=== PATIENT | male | born 1945 | race Caucasian/White ===

== ENCOUNTER → 2017-11-29 13:16 | Outpatient (CLI) | payer MEDICARE, OTHER, SELFPAY | PROVIDERS: Family Provider Internal Medicine; PCP Internal Medicine; Visit Provider Internal Medicine | DX: G47.33 Obstructive sleep apnea (adult) (pediatric) (principal); G47.34 Idiopathic sleep related nonobstructive alveolar hypoventilation; G47.10 Hypersomnia, unspecified | CPT/HCPCS: 95806 ==

== ENCOUNTER 2018-09-21 18:35 | Emergency (ER) | payer MEDICARE, SELFPAY ==
[2018-09-21 18:37] VITALS: BP 153/91; PULSE 66; RESP 15; TEMP 36.4; O2SAT 99; BMI 28.9
--- NOTE | 2018-09-21 19:07 | ED.VISSUMM ---
- ER Visit Summary Date of Service: 09/21/18 Chief Complaint: Diarrhea History of Present Illness: The patient is a 73 M your prior GI bleed from peptic ulcer disease and hypertension. Prior appendectomy and cholecystectomy. 2 prior Niesen fundoplication's. Please felt fine. He has been on no recent antibiotics. Both he and his drink well water but there is been no issues with that his has not been ill. Said he has had an area store and had sudden onset of watery diarrhea today around 4 PM. Denies any nausea or vomiting. Some mild lower abdominal cramping. No dysuria. No fever. No melena. Took 2 Imodium. Then the third. And then 1 Lomotil. Physical Examination: Older male no acute distress. Currently his blood pressure is 153/91. He said at home it was 67/41. HEENT exam mildly dry. Otherwise unremarkable. Neck nontender no lymphadenopathy. Lungs clear to auscultation bilaterally. Heart regular rhythm no murmur. Abdomen soft. Nondistended normal bowel sounds no peritoneal signs. No hernias or masses. No pulsatile mass. No signs of obstruction. Positive bowel sounds. Minimal bilateral lower quadrant tenderness. Extremities moves all 4. Calves nontender without edema. Skin without rashes. Neurologically is awake alert with no focal motor deficits. Test Results: CBC shows white count of 10. Hemoglobin 14. Electrolytes show a gap of 13. BUN of 23 and a creatinine of 1.41. Emergency Department Course and Treatment: Patient treated with a liter normal saline. Repeat exam at 2115 patient feels much better. His current pressure is 130/87. He feels comfortable being discharged home. He has nausea medication and diarrhea medication at home. Treatment Plan: Fluids and rest. Increase diet slowly. Imodium and Zofran as needed. Disposition: Discharge Impression: Acute diarrhea secondary to viral syndrome Mild dehydration Dehydration with transient hypotension resolved This note was generated with [employer] dictation software. It may contain incorrect words, spelling, and punctuation that were not noted in review of the chart prior to signing ED Disposition - Plan for ED Patient: Chief Complaint: Nausea/Vomiting/Diarrhea Referrals: Racquel Washington MD [Primary Care Provider] -
--- NOTE | 2018-09-21 19:10 | ED.DCSUM_ITS ---
- ER Visit Summary Date of Service: 09/21/18 Chief Complaint: Diarrhea History of Present Illness: The patient is a 73 M your prior GI bleed from peptic ulcer disease and hypertension. Prior appendectomy and cholecystectomy. 2 prior Niesen fundoplication's. Please felt fine. He has been on no recent an tibiotics. Both he and his drink well water but there is been no issues with that his has not been ill. Said he has had an area store and had sudden onset of watery diarrhea today around 4 PM. Denies any nausea or vomiting. Some mild lower abdominal cramping. No dysuria. No fever. No melena. Took 2 Imodium. Then the third. And then 1 Lomotil. Physical Examination: Older male no acute distress. Currently his blood pressure is 153/91. He said at home it was 67/41. HEENT exam mildly dry. Otherwise unremarkable. Neck nontender no lymphadenopathy. Lungs clear to auscultation bilaterally. Heart regular rhythm no murmur. Abdomen soft. Nondistended normal bowel sounds no peritoneal signs. No hernias or masses. No pulsatile mass. No signs of obstruction. Positive bowel sounds. Minimal bilateral lower quadrant tenderness. Extremities moves all 4. Calves nontender without edema. Skin without rashes. Neurologically is awake alert with no focal motor deficits. Test Results: CBC shows white count of 10. Hemoglobin 14. Electrolytes show a gap of 13. BUN of 23 and a creatinine of 1.41. Emergency Department Course and Treatment: Patient treated with a liter normal saline. Repeat exam at 2115 patient feels much better. His current pressure is 130/87. He feels comfortable being discharged home. He has nausea medication and diarrhea medication at home. Treatment Plan: Fluids and rest. Increase diet slowly. Imodium and Zofran as needed. Disposition: Discharge Impression: Acute diarrhea secondary to viral syndrome Mild dehydration Dehydration with transient hypotension resolved This note was generated with [employer] dictation software. It may contain incorrect words, spelling, and punctuation that were not noted in review of the chart prior to signing ED Disposition - Plan for ED Patient: Chief Complaint: Nausea/Vomiting/Diarrhea Referrals: Racquel Washington MD [Primary Care Provider] -
[2018-09-21 19:12] VITALS: BP 137/79; PULSE 66; RESP 15; TEMP 36.4; O2SAT 99
[2018-09-21] MEDS: 0.9% Normal Saline 1,000 ML 1000 ML IV (19:12)
[2018-09-21 19:28] LABS: Absolute Lymphocyte Count 0.88 X10^3/ul (0.83-4.51); Absolute Neutrophil Count 8.8 X10^3/uL (2.0-7.7); Basophil# 0.03 X10^3/uL; Basophil% 0.3 % (0-1); Hematocrit 41.6 % (40-54); Hemoglobin 14.1 g/dl (13.0-16.5); Lymphocyte # 0.88 X10^3/ul (4.0); Lymphocyte % 8.4 % (19-41); Mean Corp Hgb Conc 33.9 g/gl (32-36); Mean Corpuscular Hgb 31.1 pg (27.0-32.0); Mean Corpuscular Volume 91.8 fL (80-94); Mean Platelet Vol. 8.8 fl (6.2-12.0); Monocyte# 0.66 X10^3/uL; Monocyte% 6.3 % (0-10); Neutrophil # 8.75 X10^3/uL (2.7-7.7); Neutrophil % 83.8 % (47-70); Platelet Count 248 K/mm3 (150-450); RBC Distribution Width CV 12.9 % (11.6-14.6); RBC Distribution Width SD 43.2 fl (35.1-43.9); Red Blood Count 4.53 M/mm3 (4.6-6.2); White Blood Count 10.4 K/mm3 (4.4-11.0)
[2018-09-21 19:33] LABS: POSITIVE COUNT NO; POSITIVE DIFFERENTIAL NO; POSITIVE MORPHOLOGY NO
[2018-09-21 19:53] LABS: Anion Gap 13 (5-15); BUN 23 mg/dL (7-18); BUN/Creat Ratio 16.3 RATIO (10-20); Calcium,Total 9.5 mg/dL (8.5-10.1); Chloride 99 mmol/L (98-107); Creatinine, Serum 1.41 mg/dL (0.70-1.30); EST Glomerular Filtration Rate 53 mL/min (>60); Est Glom Filt Rate - Afr Amer 64 mL/min (>60); Estimated Creatinine Clearance 49.62 ml/min; Glucose 116 mg/dL (74-106); Potassium 4.4 mmol/L (3.5-5.1); Sodium Level 136 mmol/L (136-145)
[2018-09-21 20:02] VITALS: BP 140/95; PULSE 66; RESP 18; TEMP 36.4; O2SAT 95
[2018-09-21 20:47] VITALS: BP 140/85; PULSE 72; RESP 14; O2SAT 94
--- NOTE | 2018-09-21 21:16 | ED.DEP ---
ED Disposition - Plan for ED Patient: Disposition: Home or Assisted Living Chief Complaint: Nausea/Vomiting/Diarrhea Instructions: ED Gastroenteritis Viral Referrals: Racquel Washington MD [Primary Care Provider] - 3-5 Days if not improving Additional Instructions: Plenty of fluids and rest. Increase diet slowly. Return to the ER feeling worse. Follow-up with your doctor if not improving. Zofran and/or Phenergan as needed for nausea. Imodium as needed for diarrhea.
[2018-09-21 21:25] VITALS: BP 130/88; PULSE 64; RESP 16; O2SAT 98
== END 2018-09-21 21:26 | disposition home or self-care (01) ==
PROVIDERS: Emergency Provider Emergency Medicine; Family Provider Internal Medicine; PCP Internal Medicine
DX: A08.4 Viral intestinal infection, unspecified (principal); E86.0 Dehydration; I95.9 Hypotension, unspecified; I10 Essential (primary) hypertension; Z87.891 Personal history of nicotine dependence; Z79.899 Other long term (current) drug therapy
CPT/HCPCS: 80048; 85025; 96360; 96361; 99285; A4216

== ENCOUNTER → 2021-09-21 09:10 | Outpatient (CLI) | payer MEDICARE, OTHER, SELFPAY ==
--- NOTE | 2021-09-21 09:42 | RAD_ITS ---
STUDY: X-RAY - ESOPHAGUS (BARIUM SWALLOW) WITH FLUOROSCOPY REASON FOR EXAM: Male, 76 years old. GASTROESOPHAGEAL REFLUX DISEASE W/O ESOPHAGITIS K21.9 TECHNIQUE: 19 view(s) of the esophagus were obtained following swallowing of barium. FLUOROSCOPY TIME (if supplied): (29 seconds) minutes/seconds COMPARISON: None. FINDINGS: The patient is status post Charly fundoplication. There is no demonstrated esophageal foreign body. There is no demonstrated stricture or mucosal abnormality. Normal gastroesophageal junction, without a demonstrated hiatal hernia. The patient ingested a 12 mm tablet of barium without any difficulty. There is atherosclerotic calcification of the aortic arch with tortuosity of the descending aorta. Normal visualized pulmonary parenchyma. There are diffuse degenerative changes of the visualized thoracic spine. RAD/Esophagus Dual Contrast IMPRESSION: Status post IRMA fundoplication. Electronically Signed: Pasquale De Souza MD at 14:10 EST , Service support ,
== END ==
PROVIDERS: PCP Internal Medicine
DX: K21.9 Gastro-esophageal reflux disease without esophagitis (principal)
CPT/HCPCS: 74220; 74221

== ENCOUNTER 2021-09-22 10:46 | Day surgery (SDC) | payer MEDICARE, OTHER, SELFPAY ==
--- NOTE | 2021-09-22 | EGD_PTH ---
PATIENT: TOSHA FORTUNE LOC: EN U#:[id number] AGE/SX: 76/M ROOM: RE09/22/[address]: Dr. Louis Mak DO : 1945 BED: DIS: 09/22/2021 SPEC #: [id number] RECD: 09/22/21 14:37 STATUS: JESUS DEE #: [id number] TROY: 09/22/21 00:[address]: Louis Mak DEPT: SURGICAL PATHOLOGY RECD BY: Antonio Bowers ENTERED: 09/23/21 10:42 SP TYPE: EGD BIOPSY KEENA DR: Dr. 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 Moderate chronic inflammation. Negative for dysplasia. See comment. CHRISTIANO:gabriel 09/24/2021 COMMENT Alcian blue/PAS stain with matched control is used in the evaluation of the specimen. Immunohistochemistry ([id number]) for P53 and Ki-67 will be performed and results will be reported separately. MICROSCOPIC DESCRIPTION Slides are reviewed. GROSS DESCRIPTION Received in fixative is one container labeled with the patient's name and designated distal esophagus biopsy. The specimen consists of multiple irregular fragments of light clifford soft tissue that in aggregate measure 0.6 x 0.2 x 0.1 cm. The specimen is totally submitted in one cassette. / AM:gabriel 09/23/21 TC:5 CPT: 01059, 23118
--- NOTE | 2021-09-22 | IMM_PTH ---
PATIENT: TOSHA FORTUNE LOC: EN U#:[id number] AGE/SX: 76/M ROOM: RE09/22/[address]: Dr. Louis Mak DO : 1945 BED: DIS: 09/22/2021 SPEC #: [id number] RECD: 09/24/21 13:44 STATUS: JESUS REQ #: [id number] TROY: 09/22/21 00:[address]: Louis Mak DEPT: IMMUNOHISTOCHEMISTRY RECD BY: Larissa Nino ENTERED: 09/24/21 13:45 SP TYPE: IMMUNO OT DR: Dr. Racquel Washington MD Tissues: Esophagus, NOS Procedures: P53 (initial) KI-67 (add) PHYSICIAN & INSTITUTION [place] [id number] SPECIMEN INFORMATION: Tissue Source: Distal esophagus biopsy Clinical Info: GERD Specimen Number: [id number] CPT code: 13996, 75555 METHODOLOGY: Deparaffinized sections of prefer/formalin-fixed tissue or PAP/DQ stained slides are incubated with monoclonal/polyclonal antibodies/oligonucleotide probes. Localization is made via biotin free immunoperoxidase method. Appropriate controls are performed and reacted as expected. Results on target cell population are indicated in the following table: RESULTS: ANTIBODY / CLONE RESULT P53 (DO-7) positive, rare cells Ki-67 (30-9) positive, very low These tests were developed and their performance characteristics determined by [facility]. They may not have been cleared or approved by the U.S. Food and Drug Administration. The FDA has determined that such clearance or approval is not necessary. The above immunohistochemical/dualISH markers are ordered and reviewed by the Pathologist. INTERPRETATION: Distal esophagus, biopsy: Negative for dysplasia. CHRISTIANO:gabriel 09/27/2021
--- NOTE | 2021-09-22 11:12 | HP.PCM_ITS ---
History and Physical Date of Admission: 09/22/21 76 M who presents to the office today for further evaluation of a previous Brad fundoplication. Referred to this office to ensure that he could proceed with cardiac surgery. He is having an open-heart bypass that has not been scheduled at this time. It was discussed that surgeon would possibly undo the fundoplication for the surgery, Taco does not want to do this or have it loosened. Also has questions about barium listed as an allergy, needs to have barium swallow performed ordering physician ordered prednisone and Benadryl to alleviate hives and itching. Additional history of abnormal REM sleep, esophageal reflux, hemorrhage of GI tract, intestinal infection due to campylobacter, migraine, nocturnal hypoxemia, PUD, hypercholesterolemia, HTN. Colonoscopy performed 2000, 2007, 2018. EGD performed 2005 (dilation), 2017. Brad fundoplication 1990 with revision 2012 and esophagus was lengthened at that time. CT abd/pel 02/03/16 with mild hepatic enlargement with steatosis. Prior cholecystectomy with clips placed. Atherosclerotic disease aorta. 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 Esophogram 09/06/17 with dysmotility in esophagus with barium persisting in midportion esophagus for a small amount of time. Small nonobstructive distal esophageal ring. Fundoplication appears above level of diaphragm with small amount of stomach above level of diaphragm. Small amount of gastroesophageal reflux. ROS Const Constitutional: Positive for fatigue ENT ENT: Positive for hearing loss, tinnitus and difficulty swallowing Cardio Cardiology: Positive for chest pain at rest Gastro GI: Positive for bloating, constipation, diarrhea and difficulty swallowing Musc Musculoskeletal: Positive for joint pain, back pain, muscle cramps, numbness, stiffness, tingling, Arthritis and sciatica Neuro Neurology: Positive for numbness and tingling Psych Psychiatric: Positive for anxiety and Positive for depression Endo Endocrine: Positive for fatigue Tho/Lymp Hematologic/Lymphatic: Positive for easy bruising Exam Const General: cooperative and comfortable Nutritional Appearance: average body habitus and well nourished HENGA Head: normal to inspection Ears: hearing grossly normal bilaterally Nose: external nose normal Face and sinus: normal facial exam Mouth: oral mucosae normal Throat: posterior oropharynx normal Eyes General: appearance normal, both eyes and all related structures Neck Neck: normal visual inspection Chest Chest palpation & inspection: normal inspection of the chest and normal palpation of entire chest wall Resp Effort & Inspection: normal respiratory effort Auscultation: Bilateral: Clear to Auscultation Cardio Palpation: normal PMI Rate: regular rate Rhythm: regular rhythm GI Inspection: normal to inspection Auscultation: normal bowel sounds Percussion: normal to percussion Palpation: no hepatosplenomegaly Skin General: no rashes or lesions noted Neuro General: patient alert Extrem General: normal to inspection Psych Affect: normal affect Quality Reporting Tobacco Screening ([facility] 138) Smoking Status: Former smoker Assessment and Plan Assessment and Plan (1) GERD (gastroesophageal reflux disease): Status: Acute Plan - Dr. Myers Friend, DO: He will undergo an upper endoscopy to evaluate his upper GI tract. At this time he is not having any problems with esophageal dysphagia. We will be able to assess his upper GI tract and dilated esophagus at the level of the GE junction due to his history of 2 Brad fundoplication's. A fill is if we are able to dilate it successfully and he is not having any problems with his barium esophagram then he should be fine for his elective CABG procedure. I have re-examined the patient. There are no clinical changes since date of exam.
[2021-09-22 11:13] VITALS: BP 147/86; PULSE 60; RESP 16; TEMP 36.6; O2SAT 98; BMI 27.1
[2021-09-22] MEDS: Lactated Ringers 1,000 ML 30 ML IV (11:31)
[2021-09-22 12:16] VITALS: BP 130/64; BP 147/86; PULSE 73; RESP 16; TEMP 36.5; O2SAT 92
--- NOTE | 2021-09-22 12:18 | OP.EGD_ITS ---
Patient Name: Taco Spann Procedure Date: 09/22/2021 11:45 AM Date of : 1945 Age: 76 Procedure: Upper GI endoscopy Indications: Dysphagia Providers: Louis Mak DO Medicines: See the Anesthesia note for documentation of the administered medications Patient Profile: This is a 76 year old male. Refer to note in patient chart for documentation of history and physical. Patient has symptoms of chronic dysphagia. Complications: No immediate complications. Procedure: Pre-Anesthesia Assessment: - Prior to the procedure, a History and Physical was performed, and patient medications and allergies were reviewed. The patient is competent. The risks and benefits of the procedure and the sedation options and risks were discussed with the patient. All questions were answered and informed consent was obtained. Patient identification and proposed procedure were verified by the physician in the pre-procedure area. Mental Status Examination: alert and oriented. Airway Examination: normal oropharyngeal airway and neck mobility. Respiratory Examination: clear to auscultation. CV Examination: normal. Prophylactic Antibiotics: The patient does not require prophylactic antibiotics. Prior Anticoagulants: The patient has taken no previous anticoagulant or antiplatelet agents. After reviewing the risks and benefits, the patient was deemed in satisfactory condition to undergo the procedure. The anesthesia plan was to use moderate sedation / analgesia (conscious sedation). Immediately prior to administration of medications, the patient was re-assessed for adequacy to receive sedatives. The heart rate, respiratory rate, oxygen saturations, blood pressure, adequacy of pulmonary ventilation, and response to care were monitored throughout the procedure. The physical status of the patient was re-assessed after the procedure. After obtaining informed consent, the endoscope was passed under direct vision. Throughout the procedure, the patient's blood pressure, pulse, and oxygen saturations were monitored continuously. The gastroscope was introduced through the mouth, and advanced to the second part of duodenum. The upper GI endoscopy was accomplished without difficulty. The patient tolerated the procedure well. Moderate Sedation: Moderate (conscious) sedation was administered by the endoscopy nurse and supervised by the endoscopist. The patient's oxygen saturation, heart rate, blood pressure and response to care were monitored. Total physician intraservice time was 15 minutes. Scope In: 11:58:21 AM Scope Out: 12:09:55 PM Total Procedure Duration Time 0 hours 11 minutes 34 seconds Findings: There were esophageal mucosal changes suspicious for short-segment Alvarez's esophagus present in the lower third of the esophagus. The maximum longitudinal extent of these mucosal changes was 3 cm in length. Mucosa was biopsied with a cold forceps for histology in a targeted manner at intervals of 1 cm in the lower third of the esophagus. A total of 3 specimen bottles were sent to pathology. Verification of patient identification for the specimen was done. Estimated blood loss was minimal. One benign-appearing, intrinsic stenosis was found 34 to 35 cm from the incisors. This stenosis was mildly severe and measured 2 mm (inner diameter) x 2 cm (in length). The stenosis was traversed. A guidewire was placed and the scope was withdrawn. Dilation was performed with a Savary dilator with no resistance at 54 Fr. The dilation site was examined following endoscope reinsertion and showed moderate improvement in luminal narrowing. Estimated blood loss: none. A single 5 mm stigmata of recent bleeding angiodysplastic lesion was found in the cardia. Coagulation for hemostasis using argon plasma at 0.3 liters/minute and 20 parrish was successful. Estimated blood loss was minimal. No other significant abnormalities were identified in a careful examination of the stomach. The second portion of the duodenum was normal. Impression: - Esophageal mucosal changes suspicious for short-segment Alvarez's esophagus. Biopsied. - Benign-appearing esophageal stenosis. Dilated. - A single recently bleeding angiodysplastic lesion in the stomach. Treated with argon plasma coagulation (APC). - Normal second portion of the duodenum. Recommendation: - Discharge patient to home. - Resume previous diet. - Continue present medications. - Await pathology results. - Repeat upper endoscopy in 1 year for surveillance. - Return to GI office in 2 weeks. Procedure Code(s): --- Professional --- 70265, 59, Esophagogastroduodenoscopy, flexible, transoral; with control of bleeding, any method 29188, Esophagogastroduodenoscopy, flexible, transoral; with insertion of guide wire followed by passage of dilator(s) through esophagus over guide wire 55874, 59, Esophagogastroduodenoscopy, flexible, transoral; with biopsy, single or multiple 45081, 59, Moderate sedation services provided by the same physician or other qualified health career center advisor performing the diagnostic or therapeutic service that the sedation supports, requiring the presence of an independent trained observer to assist in the monitoring of the patient's level of consciousness and physiological status; initial 15 minutes of intraservice time, patient age 5 years or older CPT copyright 2017 [employer]. All rights reserved. The codes documented in this report are preliminary and upon manager operating review may be revised to meet current compliance requirements. Louis Mak DO 09/22/2021 12:18:11 PM This report has been signed electronically. Number of Addenda: 1 Note Initiated On: 09/22/2021 11:45 AM Addendum Number: 1 Addendum Date: 05/26/2022 6:07:06 AM MAC was used instead of moderate sedation for the patient. Louis Mak DO 05/26/2022 6:07:11 AM This report has been signed electronically.
--- NOTE | 2021-09-22 12:19 | OP.CCLET_ITS ---
05/26/2022 Racquel Washington [address] [place] [address] Re : Upper GI endoscopy procedure for [place] Spann Dear Dr. Washington This procedure was performed on Wednesday, September 22, 2021. My impressions and recommendations are as follows: Impressions : - Esophageal mucosal changes suspicious for short-segment Alvarez's esophagus. Biopsied. - Benign-appearing esophageal stenosis. Dilated. - A single recently bleeding angiodysplastic lesion in the stomach. Treated with argon plasma coagulation (APC). - Normal second portion of the duodenum. Recommendations : - Discharge patient to home. - Resume previous diet. - Continue present medications. - Await pathology results. - Repeat upper endoscopy in 1 year for surveillance. - Return to GI office in 2 weeks. My findings are described in the full procedure note, which is enclosed. If I can be of further assistance, please feel free to contact me at . Sincerely, Louis Mak, 09/22/2021 12:18:11 PM This report has been signed electronically.
[2021-09-22 12:20] VITALS: BP 126/82; BP 147/86; PULSE 59; RESP 16; O2SAT 93
[2021-09-22 12:25] VITALS: BP 130/89; BP 147/86; PULSE 67; RESP 16; O2SAT 96
[2021-09-22 12:26] VITALS: BP 131/87; BP 147/86; PULSE 59; RESP 16; TEMP 36.5; O2SAT 96
[2021-09-22 12:55] VITALS: BP 147/86
== END 2021-09-22 23:59 | disposition home or self-care (01) ==
LOC: EN 10:48 → AC 10:49
PROVIDERS: PCP Internal Medicine; Referring Provider Internal Medicine; Visit Provider Internal Medicine Gastroenterology
PROC: 0DJ08ZZ Inspection of Upper Intestinal Tract, Via Natural or Artificial Opening Endoscopic (ICD-10-PCS; CPT 43235; principal; 2021-09-22 11:55)
DX: K22.70 Barrett's esophagus without dysplasia (principal); K31.811 Angiodysplasia of stomach and duodenum with bleeding; K22.2 Esophageal obstruction; K21.00 Gastro-esophageal reflux disease with esophagitis, without bleeding; Z87.891 Personal history of nicotine dependence; F41.9 Anxiety disorder, unspecified; M19.90 Unspecified osteoarthritis, unspecified site; J45.909 Unspecified asthma, uncomplicated; F32.A Depression, unspecified; N40.0 Benign prostatic hyperplasia without lower urinary tract symptoms; E78.00 Pure hypercholesterolemia, unspecified; Z79.899 Other long term (current) drug therapy; I10 Essential (primary) hypertension; G47.30 Sleep apnea, unspecified; G43.909 Migraine, unspecified, not intractable, without status migrainosus; Z87.19 Personal history of other diseases of the digestive system; Z90.49 Acquired absence of other specified parts of digestive tract
CPT/HCPCS: 43239; 43248; 43255; 88305; 88313; 88341; 88342; J7120; C1769; J2405

== ENCOUNTER → 2021-12-21 10:56 | Outpatient (CLI) | payer MEDICARE, OTHER, SELFPAY ==
--- NOTE | 2021-12-21 13:38 | STRESSREP_ITS ---
Stress Test Report Date: 12-21-2021 Procedure: Exercise tolerance test Indications: CAD; status post CABG Consent: Per the patient Procedure: The patient exercised on a Teto protocol for 8 minutes and 20 seconds completing Stage II and 2 minutes and 20 seconds of Stage III achieving a peak heart rate of 144 bpm (98% predicted maximal heart rate) with a peak blood pressure 200/104 mmHg and a peak MET capacity of approximately 10 MET's. The baseline ECG demonstrated normal sinus rhythm; T wave abnormality: Consider myocardial ischemia. The peak exercise ECG demonstrated somatic/motion artifact with pseudonormalization the baseline T wave abnormality. There were occasional PACs and PVCs during exercise and occasional PACs during recovery and an isolated ventricular couplet during recovery. The functional capacity was considered good. The patient had no complaint of chest discomfort during exercise or recovery. The examination was discontinued secondary to dyspnea and leg discomfort. Impression: 1. Technically adequate (percent predicted maximal heart rate greater than 85%) exercise tolerance test 2. Peak exercise ECG with somatic/motion artifact with pseudonormalization of the baseline T wave abnormality 3. There were occasional PACs and PVCs during exercise and occasional PACs during recovery and an isolated ventricular couplet during recovery This note was generated with [employer] software. It may contain incorrect words, spelling, and punctuation that were not noted in checking the note before signing.
== END ==
PROVIDERS: PCP Internal Medicine
DX: Z95.1 Presence of aortocoronary bypass graft (principal)
CPT/HCPCS: 93017

== ENCOUNTER 2021-12-27 13:35 | Outpatient (CLI) | payer MEDICARE, OTHER, SELFPAY ==
--- NOTE | 2021-12-27 13:47 | CR.ITP_ITS ---
Diagnosis - General Information Admitting Diagnosis: S/P CABG Secondary Diagnosis: ACENDING AORTIC ECTASIAQ, INFRARENAL AAA, hypertension, hyperlipidemia, Coronary Artery Disease Personal Learning Style:: Audio/Visual, Written Barriers to Learning: Vision Impairment Stage of change r/t lifestyle modifications:: Action Gave educational material for:: Treating Heart Disease, Emotions & Heart Dis ease, Stress Management & Relaxation, Sleep Disorders & Heart Disease, How The Heart Works, What it means to have Heart Disease, How Coronary Artery Disease is Diagnosed, Heart Procedures, What Heart Medications Do, Risk Factors & Modifications, Living an Active Life, Nutrition - Education/Goals Individual Counseling: Initial Assessment: Abnormal Cholesterol Levels, High Blood Pressure Cardiac Rehabilitation Goals: 1. Maintain the individual as the primary focus of care. 2. To improve the patient's quality of life. 3. Identification of cardiac risk factors and provide cardiac risk factor management. 4. Enhance the psychosocial status of the patient. 5. Reconditioning enough to allow the patient to resume customary activities. 6. Control symptoms of cardiac disease Personal Goals: Initial Assessment: Improve management of stress and emotions, Improve energy level, Participate in home exercise program, Get back to work, or to resume activities faster, Improve muscle strength and endurance, Improve diet and eating habits (eat healthier), Control risk factors (learn risk factor modification), Other goal: - [facility] Scale for measuring improvement of personal goals: Enter appropriate number in Comments. 2 = Unchanged. 3 = Slightly Better. 4 = Moderate Improvement. 5 = Met my Goal - Diagnosis & Disease Process Outcomes/Goals: Pt IDs own risk factors & lifestyle modifications by Session 10, Verbalizes symptoms of angina & response by session 3., Pt independently manages Plan/Interventions: Assist Pt to ID & engage in lifestyle modification to reduce CVD risk, Instruct on individual risk factors, Review symptoms of angina & emergency actions, Review secondary diagnosis & identify educational needs. - Safety Referral to Physical Therapy: No Referral to [facility] Case Management: No Fall Risk Assessed:: Yes Assistive Devices:: None Exercise - Initial Assessment - Visit Date of Eval: 12/27/21 Session #:: 0 - pre-cardiac rehab evaluation Mets: Pre-: >7 METS for 30 minutes by discharge - Stress Test Date: 12/21/21 Protocol:: Teto Resting HR (bpm):: 64 Maximum HR (bpm):: 144 Blood Pressure: 158/88 Maximum Blood Pressure: 200/104 MET LEVEL:: 10.4 EKG: NSR - Physician Prescribed Exercise Modalities: Treadmill, Airdyne, NuStep Frequency: 3x/week for 12 weeks [36 sessions] Intensity: 60-80% of age predicted maximum heart rate reserve Current METSs:: 4.0 Target Heart Rate:: 95-124 Resting Blood Pressure: 132/92 EKG Type: see Stress Test Results - Outcomes & Goals Goals:: Verbalizes understanding of THR, RPE & goal METS by session 6, Documents in home exercise log/reports 30 min aerobic 5 day/wk by DC, Demonstrates accurate pulse taking by DC - Intervention & Plan Exercise Program Goals: Instruct on personal THR & RPE, Instruct on MET level & personal MET goal, Show patient to take own pulse /validate performance until accurate, Instruct on home exercise - Physical Activity Home Exercise Physical Activity - Home Exercise: Safe Exercise, Warm-up, Self-monitoring, Cool-Down, Home Exercise > 30 min Daily, Sitting Time <3 hours/daily - Outcomes & Goals Outcomes/Goals: Demonstrates correct Warm-up/exercise Cool-Down (S3) if = 2.5 METs, Verbalizes symptoms of exercise intolerance by Session 3 (S3), Demonstrate safe equipment use (S3) & follows exercise prescrition (6) - Intervention & Plan Plan/Intervention: Instruct warm-up & cool-down if exercising at > 2 METs, Instruct on symptoms of exercise intolerance & actions to take, Instruct & monitor on saf, Assess intial functional capacity & safety risk Nutrition - Initial Assessment - Program Goals Nutrition Program Goals: LDL <100 optimal. 100 - 129 Near optimal. 130 - 159 Borderline High. 160 - 189 High. Total Cholesterol <200 desirable. 200 - 239 Borderline High. >/= 240 High. HDL < 40 Low >/=60 High. Triglycerides <150 desirable. <199 optimal. VlDL 5 - 40. HgbA1C <7%. BMI <25 Patient has diagnosis of Hyperlipidemia (ICD E78)?: Yes - Visit Date of Assessment:: 12/27/21 Session #:: 0 - pre-cardiac rehab - Cholesterol/Lipids Determine presence & major risk factors that modify LDL goal: Hypertension or hypertensive medication, Family history of premature CHD in Male < 55 years: female <65 yearsFa, Age men > 45 years; women >/= 55 years Outcomes/Goals: Pt IDs own risk factors & lifestyle modifications by Session 10, Verbalizes symptoms of angina & response by session 3., Pt independently manages Intervention/Plan: Instruct on personal lipid levels & lipid goals/NCEP guidelines, Instruct on cholesterol - Weight Mgt (Other Care) Not Applicable: Yes Height: 5 ft 9 in Weight:: 175 lb BMI: 25.8 Diagnosis Overweight/Obesity BMI> 30% ICD-10 E66: No Diagnosis High BMI/Morbid Obesity BMI> 35% ICD-10 Z68: No Outcomes/Goals: Pt sets, maintains & shows weight loss goal & trend during rehab Intervention/Plan: Instruct on ideal BMI & set weight loss goal w/patient - Healthy Eating Habits Will attend diet classes:: Yes Outcomes/Goals:: Consume diet rich in vegs,fruits,whole grain/high fiber,fish,lean meat, Limit sat/trans fats,cholesterol & added salts & sugars Intervention/Plan:: Assess current eating habits - Education Gave educational materials for:: Healthy eating Nutrition - 30-Day Assessment Nutrition - 60-Day Assessment Nutrition - 90-Day Assessment Nutrition - Final Assessment Medical - Initial Assessment - Visit Date of Eval: 12/27/21 Session #:: 0 - pre-cardiac rehab evaluation - Medication Compliance Preventative Medication(s):: Aspirin, Statin/lipid, Beta yamilet H/O mental health issues: depression, anxiety, or addiction?: No Doesn?t believe in the benefits of treatment?: No Believes medications are unnecessary or harmful?: No Has a concern about medication side effects?: No Expresses concern over the cost of medications?: No Outcomes/Goals: Verbalizes medications,desired effect & common side effects @ DC, Pt self-reports following medication regimen, Keeps card in wallet w/medications listed by DC Interventions/plans: Instruct on medication effects & side effects, Review medication list w/patient every two weeks, Instruct importance of taking meds as ordered & assist problem solving - Tobacco Use Tobacco Use: Non-smoker - Hypertension Hypertension Diagnosis:: Hypertension ICD-10 I10 Resting Blood Pressure:: 158/88 [place] [employer] Hypertension Guidelines: [place] [employer] Hypertension Guidelines. Normal BP Less than 120/80. Elevated BP 120/80. Hypertension Stage 1: BP 130-139/80-89. Hypertesnion Stage 2: BP 140 or higher/90 or higher. Hypertension Crisis: BP higher than 180/120 Outcomes/Goals: Able to verbalize/achieve optimal blood pressure <130/80, Incorporates diet changes & exercise for blood pressure control by DC Interventions/plan: Instruct on optimal blood pressure, hypertension & medicat ions, Instruct on effects of sodium, alcohol, stress, exercise &hypertension - Tobacco Cessation Referral Smoking Cessation Referral:: No Individual Education/Counseling:: No Education Schedule Given:: Yes Medical- 30-Day Assessment Medical- 60-Day Assessment Medical- 90-Day Assessment Medical - Final Assessment Psychosocial - Initial Assess - VIsit Date of Eval: 12/27/21 Session #:: 0 - pre-cardiac rehab evaluation Not Applicable: Yes History of previous Mental disease:: No - Psychosocial Test Tool Used:: [facility] QOL Cardiac, PHQ-9 Questionnaire phq-9 Severity: Severity. 1-4 Minimal Depression. 5-9 Mild Depression. 10-14 Moderate Depression. 15-19 Moderately Sever Depression. 20-27 Severe Depression. Rule: - Referral to Behavioral Health PS - Interventions: Yes Attend Stress Management Classes, No Referral to Behavioral Health if PHQ-9 score >9:, No Referral to [facility], No Referral to Physician if PHQ-9 if score is 5-9: - Outcomes/Goals: See list Psychosocial Outcomes/Goals:: ID's personal stressors & 2 strategies to manage stress by discharge - Intervention/Plan: See List Interventions/Plan:: Assess stressors,coping strategies & signs of derpression on admission, Instruct/assist pt to develop coping & personal stress Mgt strateg ies, Instruct patient to recognize signs & symptoms of depression, Instruct patient to recog Psychosocial - 30-Day Assess Psychosocial - 60-Day Assess Psychosocial - 90-Day Assess Psychosocial - Final Assessmen Patient Health Questionnaire Initial Assessment 1. Little interest or pleasure in doing things: Several days 2. Feeling down, depressed, or hopeless: Several days 3. Trouble falling or staying asleep, or sleeping too much: Not at all 4. Feeling tired or having little energy: More than half the days 5. Poor appetite or overeating: Not at all 6. Feeling bad about yourself -- or that you are a failure or have let yourself or your family down: Not at all 7. Trouble concentrating on things, such as reading the newspaper or watching television: More than half the days 8. Moving or speaking so slowly that other people could have noticed. Or the opposite - being so fidgety or restless that you have been moving around a lot more than usual: Not at all 9. Thoughts that you would be better off , or of hurting yourself in some way: Not at all How difficult have these problems made it for you to do your work, take care of things at home, or get along with other people?: Somewhat difficult Total Score: 6 FIDEL-Q SV Test - Statements CAD is a disease of the arteries in the heart: False Examples of risk factors for heart disease: True Angina is chest pain or discomfort: True The benefits of resistance training include: True Eating more meat and dairy products: False Anti-platelet medications such as aspirin are important: True The only effective way to manage stress: False An exercise warm-up slowly increases heart rate: True Prepared, processed foods usually have high sodium: True Depression is common after a heart attack: True The statin medications lower cholesterol: True To control blood pressure, lower the amount of sodium: True If someone gets chest discomfort during walking: False Transfats are partially hydrogenated vegetable oils: True Sleep apnea that is not treated increases the risk: False To control cholesterol, one should become a vegetarian: False Someone knows if he/she is exercising at the right level: True Diabetes cannot be prevented with exercise & health eating: False Stress is a large risk for heart attack: True A diet that can help lower blood pressure is rich in: True - Total Score Total Correct Responses: 20 Self-Efficacy Initial Assessment We would like to know how confident you are in doing certain activities. Please select your confidence level for:: Select your confidence level for the following using the scale 1-10 where 1 is not at all confident and 10 is totally confident. Your score is the average of all 6 responses. Fatigue: How confident are you that you can keep the fatigue caused by your disease from interfering with the things you want to do? Select Number: 10 Physical Discomfort or Pain: How confident are you that you can keep the physical discomfort or pain of your disease from interfering with the things you want to do? Select Number: 10 Emotional Distress: How confident are you that you can keep the emotional distress caused by your disease from interfering with the things you want to do? Select Number: 10 Other Symptoms or Health Problems: How confident are you that you can keep other symptoms or health problems from interfering with the things you want to do? Select Number: 2 Different Tasks and Activities: How confident are you that you can do the different tasks and activities needed to manage your health condition so as to reduce your need to see a doctor? Select Number: 3 Medication: How confident are you that you can do things other than just taking medication to reduce how much your illness affects your everyday life? Select Number: 5 Total Score:: 6 Nutrition Survey - Nutrition Survey Initial Have you lost >10 lbs over the past 2 months without trying?: No Are you following a special diet at home for diabetes, low fat, or low salt?: Yes Are you interested in meeting with a dietitian for help understanding your diet?: Yes Do you eat less than 3 meals a day?: No Do you eat fatty meats (parrish, sausage, ribs, etc), fried foods, desserts, large amounts of salad dressings, margarine, butter, or cheese most days?: No Do you have food allergies? [Enter types in comment field]: No Do you eat in restaurants more than 3 times a week?: No Do you season food with salt, seasoning salt, or garlic salt?: Yes Do you used canned, boxed, frozen meals, or soups, seasoning packets?: No Total Score:: 3
--- NOTE | 2021-12-27 13:47 | PCM.CR.HP2 ---
CR - History & Physical - General Arrival date:: 12/27/21 Arrival time:: 13:50 Date of Referral:: 11/17/21 Date of CR Evaluation:: 12/27/21 Referring Physician: DR. LAURA CORADO - DR. BANKS @ [facility] Primary Diagnosis: S/P CABG - History of Present Cardiac Event Onset Date: Enter Onset Date of cardiac illnesses in Comment field below Coronary Artery Bypass Graft:: Yes - 10/25/2021 Type of Symptoms:: oversized aortic arch, being monitored, when Dr. Corado did surgery he said it was fine. never had any symptoms. Dr. Banks sent me to [facility] for a heart cath adn found a 80% and 90% blockage in coronary arteries. - Sleep Disorder Evaluation Hx of Sleep Apnea: No Do you snore loudly (louder than talking or can be heard through closed doors)?: No - Have history of shallow breathing and desaturation during the sleep so wear a CPAP at night for the oxygen saturation only. Do you often feel tired/ fatigued/ sleepy during daytime?: Yes - wake u in morning felt like never slept night before. Has anyone observed you stop breathing during sleep?: No History of Hypertension (for STOP score): Yes STOP Results: Positive - Medications Home Medications: Ambulatory Orders Medication Instructions Recorded promethazine 25 mg PO Q8H PRN PRN #10 tab 02/03/16 Omeprazole [Prilosec] 40 mg PO BID 06/22/16 celecoxib 200 mg PO BID 06/22/16 dicyclomine 20 mg PO QHS 06/22/16 finasteride 5 mg PO DAILY 06/22/16 losartan 25 mg PO BID 06/22/16 propranolol 120 mg PO DAILY 06/22/16 rosuvastatin 20 mg PO QHS 06/22/16 calcium-vitamin D3-vitamin K 1 ea PO DAILY 03/07/17 [Citracal Soft Chew] ascorbic acid (vitamin C) [Vitamin 1,000 mg PO DAILY 09/21/18 C] cholecalciferol (vitamin D3) 1,000 unit PO BID 09/21/18 [Vitamin D3] omega 0-eeg-oal-fish oil [Fish Oil 1 ea PO DAILY 09/21/18 1,000 mg Softgel] flaxseed oil 1,000 mg PO DAILY 09/21/21 fluticasone propionate [Flonase] 2 spray INTRANASAL DAILY 09/21/21 fluticasone propionate [Flovent 1 - 2 puff INHALATION PRN PRN 09/21/21 HFA] ipratropium-albuterol [Combivent 1 - 2 puff INHALATION PRN PRN 09/21/21 Respimat] trazodone 50 mg PO QHS 09/21/21 docusate sodium 100 mg capsule 100 mg PO BID 10/18/21 lamotrigine 25 mg tablet 50 mg PO ONCE 10/18/21 methylcellulose (laxative) 500 mg 500 mg PO DAILY 10/18/21 tablet polyethylene glycol 3350 17 17 g PO DAILY 10/18/21 gram/dose oral powder sucralfate 1 gram tablet 1 g PO BID #60 tab 10/21/21 aspirin 81 mg PO DAILY 12/27/21 furosemide [Lasix] 40 mg PO DAILY 12/27/21 magnesium oxide 400 mg PO DAILY 12/27/21 melatonin [Melatin] 3 mg PO DAILY 12/27/21 metformin 500 mg PO DAILY 12/27/21 potassium chloride 20 meq PO DAILY 12/27/21 tramadol 50 - 100 mg PO TID PRN 12/27/21 - Allergies Allergies/Adverse Reactions: Allergies barium iodide Allergy (Verified 09/22/21 11:04) Hives Penicillins [PCN] Allergy (Verified 09/22/21 11:04) Unknown tamsulosin [From Flomax] Allergy (Verified 09/22/21 11:04) Hives Advanced Directives - Advanced Directives Power of Speech And Language Assistant: Yes Living Will: Yes Advance Directives Information Provided: No Advance Directives on File: Yes DNR Order?:: No - MOLST See MOLST form: No Past Medical History - Covid-19 Screening Fever: No Unexplained muscle aches: No Current respiratory symptoms: No Upper respiratory infections symptoms: No Gastro-intestinal symptoms: No Hxi-Fcyp-Wniswq symptoms: No Has tested positive for COVID-19 in last 30 days: No Date of testin05/21/21 - Had Covid but also have had vaccines x 2 and booster vaccine Had contact w/person w/symptoms or Covid-19 (+) last 14 days: No Has High Risk Exposures ID'd by Health dept/Inf Control team: No 65 years or older:: Yes Lives in Assisted Living facility:: No Has a chronic lung disease or moderate to severe asthma:: No Has a serious heart condition:: No Immunocompromised:: No Severely obese (Body Mass Index of 40 or higher):: No Diabetic:: Yes Has chronic kidney disease undergoing dialysis:: No Has liver disease:: No - Past Medical Illness Medical History: Past Medical History (Last Updated 10/18/21 @ 18:[address] Myres Friend, DO) Anxiety F41.9 Arthritis M19.90 BACK, HANDS Asthma J45.909 INHALERS PRN Back pain M54.9 NEED BACK SURGERY ALSO, FOUND HEART PROBLEMS Cardiology follow-up encounter Z[address] [facility], [facility]. SCHEDULED FOR OPEN HEART SURGERY BUT NEEDS AN EGD TO SEE IF EQUIPMENT WILL FIT. Chest pain R07.9 SCHEDULED FOR OPEN HEART SURGERY ELECTIVE/URGENT. CPAP (continuous positive airway pressure) dependence Z99.89 FOR SHALLOW BREATHING Depression F32.A Enlarged prostate N40.0 Former smoker Z87.891 QUIT AGE 24 GERD (gastroesophageal reflux disease) K21.9 High cholesterol E78.00 History of echocardiogram Z92.89 07/2021 [facility] History of hiatal hernia Z87.19 History of steroid therapy Z92.241 PREDNISONE PRN, BACK INJ History of stress test Z92.89 07/2021 [facility] History of ulceration Z87.898 Hypertension I10 NORMALLY, STARTING TO RISE IBS (irritable bowel syndrome) K58.9 Injury of back S39.92XA Injury of head and neck S09.90XA, S19.9XXA WORK RELATED, ALSO AGE 16 BICYCLE Migraine headache G43.909 Plantar fasciitis M72.2 R FOOT Sleep apnea G47.30 Wears glasses Z97.3 READING ONLY Wears hearing aid Z97.4 SYED - Past Surgical History Surgical History: Past Surgical History (Last Updated 12/27/21 @ 13:59 by Nando Ely, EXECUTIVE OFFICE MANAGER, SEO ASSOCIATE, BS) History of cardiac catheterization Z98.890 1 MONTH AGO 08/22/21 [facility] History of endoscopy Z98.890 History of esophagogastroduodenoscopy (EGD) Z98.890 X15 History of Brad fundoplication Z98.890 History of surgery Z98.890 ULNAR NERVE TRANSPOSITION Hx laparoscopic cholecystectomy Z90.49 Hx of appendectomy Z90.49 Hx of bilateral cataract extraction Z98.41, Z98.42 Hx of colonoscopy Z98.890 X6 Hx of foot surgery Z98.890 X3 Hx of hemorrhoidectomy Z98.890 Hx of inguinal hernia surgery Z98.890, Z87.19 Hx of parotidectomy Z90.49 RIGHT 06/28/2016 Hx of rotator cuff surgery Z98.890 RIGHT Hx of shoulder surgery Z98.890 R ARTHROSCOPY S/P CABG x 3 Z95.1 Social History - Smoking History Smoking Status: Former smoker Hx Tobacco Use: No Hx Smoking Exposure: No - Alcohol Use Alcohol Usage: No - Substance Abuse Hx Substance Use: No - Occupation Occupation (List type of work in comments):: Retired - Hobbies, Recreation, Social Activities Hobbies: Sports - golf had to quit due to arthritis, Woodworking - built furniture, Other - home, yard, and gardening Recreational Activities: I am able to engage in most, but not all activities Social Environment - Status Marital Status: - Current Living Arrangements Living Environment:: Alone - Children How many children do you have?: 2 Do any of your children live nearby?: Yes - Safety Do you feel safe in your surroundings?: Yes - Assistance Do you need any assistance at home?: none Review of Systems - Review of Systems Hints: Right click = Denies ([place]). Left click = Reports ([place]) Review of Present Symptoms: Reports: Wound Healing, Appetite - Normal, Appetite - Special Diet - low fat, low sodium, low sugar, limited red meat. More fruits and vegetables., Sleep - Normal. Denies: Shortness of Breath at Rest, Shortness of Breath with Exertion, Operative Discomfort - left side from the vein harvest, Dizziness/Lightheadedness, Fatigue, Heart Arrhythmia/Irregularities, Sexual Changes - Pain Is Patient Pain Free?: No Pain Location: back, lower extremity - left leg from vein harvest Pain Level: 910 Risk Factor Assessment - Chief Complaint Chief Complaint: s/p cabg x 3 - Vital Signs Temperature: 97.8 F Respiratory Rate: 16 Pulse Ox: 93 Blood Pressure: 158/88 - Pulse Pulse Rate: 102 Pulse Rhythm: Regular - Diabetes Diabetic History: Type II Nutrition Referral for Diabetes: Yes - Obesity Height: 5 ft 9 in Weight:: 188 lb Weight in Pounds: 188.0 lbs Weight Source: Stated by Patient Body Mass Index (BMI): 27.7 Nutritional Referral for Obesity: No - Physical Inactivity Physical Inactivity: Reg Exercise 30 min/day - Risk Stratification Risk Guidelines: Lowest Risk: Risk Factor for Smoking, Risk Factor for Dyslipidemia, Risk Factor for Diabetes, Risk Factor for Sedentary Lifestyle, Risk Factor for Depression, Moderate Risk: Risk Factor for Obesity, Risk Factor for Hypertension - 158/88 Motivation - Motivation to Participate On a scale of 1 to 10, how prepared are you to commit to attending program?: 10 - walking 3 miles day What do you see as barriers to successfully being able to complete the program?: sever chronic back pain, arthritis, in care facility with dementia, What do you see as the benefits of succesfully completing the program? In other words, what do you hope to get out of participating in the program?: healthier Are there issues you are dealing with that will interfere with completing the program?: alot going on personally, tryingot get Pain STmulaor in back for pain. Do you have a spouse or signficant other, family or friends who will help support you to complete the program?: yes.
[2021-12-27 14:42] VITALS: BP 158/88; PULSE 102; RESP 16; TEMP 36.6; O2SAT 93; BMI 27.7
[2021-12-27 14:47] VITALS: BP 132/92; BP 158/88; BMI 25.8
== END 2021-12-27 23:59 | disposition home or self-care (01) ==
PROVIDERS: PCP Internal Medicine; Referring Provider Thoracic Surgery (Cardiothoracic Vascular Surgery); Visit Provider Thoracic Surgery (Cardiothoracic Vascular Surgery)
DX: K21.9 Gastro-esophageal reflux disease without esophagitis (principal); E11.9 Type 2 diabetes mellitus without complications; I10 Essential (primary) hypertension; Z95.1 Presence of aortocoronary bypass graft

== ENCOUNTER 2022-01-24 10:00 | Outpatient (RCR) | payer MEDICARE, OTHER, SELFPAY | END 2022-02-15 23:59 | LOC: DC 10:00 | PROVIDERS: PCP Internal Medicine | DX: E11.9 Type 2 diabetes mellitus without complications (principal); I10 Essential (primary) hypertension; K21.9 Gastro-esophageal reflux disease without esophagitis | CPT/HCPCS: 97802 ==

== ENCOUNTER 2022-02-24 08:40 | Outpatient (RCR) | payer MEDICARE, OTHER, SELFPAY | END 2022-03-17 23:59 | LOC: DC 08:40 | PROVIDERS: PCP Internal Medicine | DX: E11.9 Type 2 diabetes mellitus without complications (principal); I10 Essential (primary) hypertension; K21.9 Gastro-esophageal reflux disease without esophagitis | CPT/HCPCS: 97803 ==

== ENCOUNTER 2022-03-07 13:08 | Day surgery (SDC) | payer MEDICARE, OTHER, SELFPAY ==
[2022-03-07 13:26] VITALS: BP 152/88; PULSE 71; RESP 16; TEMP 36.6; O2SAT 99; BMI 25.7
[2022-03-07] MEDS: Lactated Ringers 1,000 ML 15 ML IV (13:37)
[2022-03-07 13:41] LABS: Bedside Glucose 122 mg/dL (74-106)
--- NOTE | 2022-03-07 14:25 | RAD_ITS ---
PROCEDURE: Spinal cord stimulator placement DATE OF EXAMINATION: 03/08/2022 INDICATION: Male, 76 years old. Spinal cord similar placement for lumbar radiculopathy. FLUOROSCOPY TIME (if supplied): 4 minutes 50 seconds. A fluoroscopic images submitted for assessment. Findings/ RAD/Lumbar Spine 2 or 3 Views IMPRESSION: Limited assessment due to limited fluoroscopic images and views submitted for evaluation. A spinal cord signal device is seen placed and terminating within the thoracic spine. Please see intraoperative report for additional findings. Electronically Signed: Shankar Garcia, at 8:05 EDT ,
[2022-03-07] MEDS: Cefazolin 2 GM in 0.9% Normal Saline 100 ML IV (14:29)
[2022-03-07] MEDS: Lidocaine 2% (20 ml mdv) 20 ML Vial (14:43)
[2022-03-07] MEDS: 0.9% Normal Saline (Pres. free 10 ML Vial ×2 (14:43)
[2022-03-07] MEDS: Bacitracin 500 UNITS/GM PACKET (15:46)
--- NOTE | 2022-03-07 15:59 | OP.PCM_ITS ---
Report of Operation Date of Procedure: 03/07/22 Description of Surgical Findings:: Description of Surgical Findings:: Pre-Operative Diagnosis: Lumbosacral radiculopathy, lumbosacral degenerative disc disease, lumbosacral spinal stenosis, lumbar postlaminectomy syndrome Post-Operative Diagnosis: Lumbosacral radiculopathy, lumbosacral degenerative disc disease, lumbosacral spinal stenosis, postlaminectomy syndrome of the lumbar spine Surgery/Procedure Performed:: 1.? Spinal cord stimulator thoracolumbar leads placement x2 #2 spinal cord stimulator Medtronic intellus generator placement #3 spinal cord stimulator generator pocket creation at the right gluteal region #4 spinal cord stimulator programming, 5-intraoperative fluoroscopic interpretation ANESTHESIA: MAC COMPLICATIONS: None BLOOD LOSS: Minimal Implanted device: Spinal cord stimulator lead [id number] lot number [id number], lead #2? [id number] lot number [id number] Medtronic spinal cord stimulator generator intellus serial number [id number] PROCEDURE IN DETAIL: History and physical today was reviewed. Risks and benefits of procedure expla ined. The patient understood, agreed to procedure, informed consent was obtained. IV inserted per routine protocol. The patient was taken to the operating room, placed in the prone position with a pillow positioned underneath the abdomen. A 2 g of Ancef IV piggyback was infused per anesthesia. The lower back and right gluteal area was prepped and draped in a sterile fashion using iodine x3 Ioban was placed.? The C-arm was brought in position for AP view at the T12-L1 vertebral bodies under direct visualization fluoroscopy on a true AP view the T12-L1 interlaminar space was identified skin and subcutaneous tissue and size approximately 10 cc of a mix of 2% lidocaine and 0.25% Marcaine using a 25-gauge regular needle followed by a 25-gauge 3-1/2 inch spinal needle towards the interlaminar space at T12-L1, the skin and subcutaneous tissue were then anesthetized and using an 11-gauge blade was then taken down to the skin and subcutaneous tissue using a 14-gauge 3-1/2 inch Touhy needle provided by the [employer] kit the needle was passed through the skin towards the interlaminar space at T12-L1 and a left paramedian approach the needle was then advanced under direct visualization fluoroscopy towards the interlaminar space at L2-3 [id number] technique was then carried to air towards the interlaminar space at L1-2 once the tip of the needle was in the epidural space and loss of resistance was encountered to air and after confirmation of AP-- as well as oblique view of the spinal cord stimulator lead was then advanced under direct visualization fluoroscopy to be at the tip of the lead at T8 and the bottom of the lead around mid T10 after confirmation of AP as well as well as lateral view to confirm correct placement of the lead in the posterior compartment of the epidural space the previous procedure was then repeated to the same level on the right parapmedian approach,? interlaminar space the second lead was then inserted under direct visualization with fluoroscopy to be at the tip of T8 and mid T10 area the leads were were then connected to the external neurostimulator and patient was then awakened to confirm satisfactory coverage of the painful area once satisfactory coverage was then achieved the stylette of each needle was then removed and the skin and subcutaneous tissue on to the left of the paramedian needles was then taken anesthetized with a total of 10 cc of the previous mixture of 0.25% Marcaine and 2% lidocaine using a 25-gauge regular needle the incision was then taken down through the skin and subcutaneous tissue towards the fascia making sure hemostasis was then maintained via cautery, the spinal cord stimulator leads were then passed through the above incision and secured using the anhor and sutured down with a 2-0 silk to the fascia at that level the spinal cord stimulator leads were then tunneled via a tunneler provided by the [employer] kit towards the previously incised spinal cord stimulator battery at the right gluteal region skin and subcutaneous tissue were anesthetized with approximately 10 cc of a mix of 2% lidocaine and 0.25% Marcaine using a 25 gauge regular needle, skin and subcutaneous tissue was then taken down with the 11-gauge blade hemostasis was maintained with Bovie and direct pressure the incision was then taken down to the fascia and the battery was then secured with the 2-0 silk sutures that were the spinal cord stimulator leads the upper lead was then marked the new until spinal cord stimulator battery was then provided Via [employer] kit the battery was then reattached of the spinal cord stimulator make ensure that the top lead is attached to the top position from 0-7 electrodes and the bottom from 8-15 electrodes once impedance was then checked to be in the proper average number the intellus battery was then inserted into tyrx antimicrobial pouch and inserted into the pocket and impedance with when checked again the pocket was then inspected to confirm hemostasis in place, the intellus battery was then secured to the fascia using a 2-0 silk to the upper eyes of the battery confirming an upward writing of the intellus facing posterior,? once complete confirmation the battery was then placed in the position and the the mid paramedian and the gluteal incisions were then closed primarily through a 3- 0 Vicryl in a running fashion followed by a 4-0 Vicryl to the skin, hemostasis was then maintained during the procedure the skin was then covered with a Steri- Strips and bacitracin patient was then returned into the supine position in a stable condition and returned to recovery in a stable condition patient experienced no signs or symptoms of intrathecal or intravascular injection patient experienced no paresthesia the procedure was completed without any apparent difficulty any complication the patient appeared to tolerate well, motor as well as sensory function was unchanged from prior to the procedure. ESTIMATED BLOOD LOSS: Minimal less than 25 mL ASSESSMENT AND PLAN: This is a 76-year-old male with lumbosacral radiculopathy lumbosacral degenerative disc disease lumbosacral spinal stenosis status post 1.? Spinal cord stimulator thoracolumbar leads placement x2 #2 spinal cord stimulator Medtronic intellus generator placement #3 spinal cord stimulator generator pocket creation at the right gluteal region #4 spinal cord stimulator programming, 5-intraoperative fluoroscopic interpretation patient will continue his current medications a prescription was provided to the patient? Keflex 500 mg 1 p.o. every 8 hours for 7 days postop instruction were given in writing to the patient and his daughter as well as verbally and in writing, patient will follow approximately 1 week for reevaluation.
[2022-03-07 16:06] VITALS: BP 112/79; BP 152/88; PULSE 79; RESP 18; TEMP 37.4; O2SAT 95
[2022-03-07 16:10] VITALS: BP 114/78; BP 152/88; PULSE 79; RESP 18; O2SAT 97
[2022-03-07 16:15] VITALS: BP 120/81; BP 152/88; PULSE 75; RESP 18; O2SAT 97
[2022-03-07 16:21] VITALS: BP 136/86; BP 152/88; PULSE 65; RESP 18; TEMP 36.8; O2SAT 97
[2022-03-07 16:50] VITALS: BP 152/88
== END 2022-03-07 16:58 | disposition home or self-care (01) ==
LOC: SDC 13:09 → AC 13:11
PROVIDERS: PCP Internal Medicine; Referring Provider Anesthesiology Pain Medicine; Visit Provider Anesthesiology Pain Medicine
PROC: (CPT 63685; principal; 2022-03-07 14:55)
DX: M51.17 Intervertebral disc disorders with radiculopathy, lumbosacral region (principal); E11.9 Type 2 diabetes mellitus without complications; M48.07 Spinal stenosis, lumbosacral region; M96.1 Postlaminectomy syndrome, not elsewhere classified; I25.10 Atherosclerotic heart disease of native coronary artery without angina pectoris; I10 Essential (primary) hypertension; E78.00 Pure hypercholesterolemia, unspecified; K21.9 Gastro-esophageal reflux disease without esophagitis; G47.30 Sleep apnea, unspecified; Z95.1 Presence of aortocoronary bypass graft; Z79.82 Long term (current) use of aspirin; Z79.84 Long term (current) use of oral hypoglycemic drugs; Z79.899 Other long term (current) drug therapy; Z87.891 Personal history of nicotine dependence
CPT/HCPCS: 63685; 63650; 00300; 72100; 76000; 82962; C1778; C1820; J7120; J3490

== ENCOUNTER 2022-04-26 11:20 | Outpatient (RCR) | payer MEDICARE, OTHER, SELFPAY | END 2022-05-18 23:59 | LOC: DC 11:20 | PROVIDERS: PCP Internal Medicine; Referring Provider Thoracic Surgery (Cardiothoracic Vascular Surgery); Visit Provider Thoracic Surgery (Cardiothoracic Vascular Surgery) | DX: E11.9 Type 2 diabetes mellitus without complications (principal); I10 Essential (primary) hypertension; K21.9 Gastro-esophageal reflux disease without esophagitis | CPT/HCPCS: 97803 ==

== ENCOUNTER 2022-07-16 16:00 | Emergency (ER) | payer MEDICARE, OTHER, SELFPAY ==
[2022-07-16 16:01] VITALS: BP 178/108; PULSE 74; RESP 14; TEMP 36.2; O2SAT 97; BMI 25.9
--- NOTE | 2022-07-16 17:35 | CT_ITS ---
STUDY: CT BRAIN WITHOUT CONTRAST REASON FOR EXAM: Male, 77 years old. Technologist Notes Dizziness, worse looking to the left. Sore throat and upper airway congestion x 2 days. on antibiotics. vertigo TECHNIQUE: Transaxial CT imaging of the brain was performed without administration of intravenous contrast material. Individualized dose optimization techniques were used for this CT. COMPARISON: None FINDINGS: Normal calvarium. Normal soft tissues. Normal size ventricles and extra-axial spaces for the patient''s age. There are areas of decreased attenuation within the white matter tracts of the supratentorial brain, consistent with microvascular disease changes. Normal basal ganglia and thalami. Normal brainstem. Normal cerebellum. There is no intracranial hemorrhage. There are no findings of an acute ischemic infarction. There are calcifications noted in the distal vertebral arteries. There are calcifications noted in the cavernous carotid arteries. This is consistent for atherosclerotic disease. Normal visualized paranasal sinuses. ASPECTS 10 CT/Brain/Head without Contrast IMPRESSION: There are no acute intracranial findings. Electronically Signed: Jack Green MD at 18:44 EDT ,
--- NOTE | 2022-07-16 17:38 | EDS_ITS ---
HPI History of Present Illness Chief Complaint: Dizziness Narrative Narrative: Patient presents with 3-day history of a sore throat and upper airway congestion, he is on Levaquin for this but in the middle night he woke up with vertigo, every time he looks to the left he gets worse. He has paroxysms that lasts just a few seconds until he looks straight and then the vertigo goes away. He has no balance issue. He has no fevers chills cough or congestion. No vision changes. No nausea or vomiting. No chest pain palpitations or shortness of breath [facility] Medical History Anxiety Arthritis Cardiology follow-up encounter Cold induced bronchospasm CPAP (continuous positive airway pressure) dependence Depression Diabetes Dietary restriction Difficulty swallowing Enlarged prostate Former smoker GERD (gastroesophageal reflux disease) Heartburn High cholesterol History of echocardiogram History of GI bleed History of hiatal hernia History of steroid therapy History of stress test History of ulceration Hypertension IBS (irritable bowel syndrome) Injury of back Injury of head and neck Leg cramps Migraine headache Plantar fasciitis Sleep apnea Thyroid disease Wears glasses Wears hearing aid Home Medications promethazine 25 mg tablet 25 mg PO Q8H PRN PRN Nausea #10 tabs 02/03/16 [Rx Last Taken Unknown] Omeprazole [Prilosec] 40 mg PO BID 06/22/16 [History Last Taken 03/07/22] dicyclomine 20 mg tablet 20 mg PO QHS 06/22/16 [History Last Taken Unknown] finasteride 5 mg tablet 5 mg PO DAILY 06/22/16 [History Last Taken Unknown] losartan 50 mg tablet 25 mg PO BID 06/22/16 [History Last Taken 03/07/22] propranolol 120 mg capsule,24 hr,extended release 120 mg PO DAILY 06/22/16 [History Last Taken 03/07/22] rosuvastatin 10 mg tablet 20 mg PO QHS 06/22/16 [History Last Taken Unknown] calcium-vitamin D3-vitamin K 500 mg-1,000 unit-40 mcg chewable tablet (Citracal- D3 Soft Chew) 1 ea PO DAILY 03/07/17 [History Last Taken Unknown] ascorbic acid (vitamin C) 1,000 mg tablet (Vitamin C) 1,000 mg PO DAILY 09/21/18 [History Last Taken Unknown] cholecalciferol (vitamin D3) 50 mcg (2,000 unit) capsule (Vitamin D3) 1,000 unit PO BID 09/21/18 [History Last Taken Unknown] fluticasone propionate 110 mcg/actuation HFA aerosol inhaler (Flovent HFA) 1 - 2 puff inhalation PRN PRN ASTHMA 09/21/21 [History Last Taken Unknown] fluticasone propionate 50 mcg/actuation nasal spray,suspension 2 spray intranasal DAILY 09/21/21 [History Last Taken Unknown] ipratropium 20 mcg-albuterol 100 mcg/actuation mist for inhalation (Combivent Respimat) 1 - 2 puff inhalation PRN PRN ASTHMA 09/21/21 [History Last Taken Unknown] trazodone 50 mg tablet 25 mg PO QHS 09/21/21 [History Last Taken Unknown] docusate sodium 100 mg capsule (Colace) 100 mg PO DAILY 10/18/21 [History Last Taken Unknown] lamotrigine 25 mg tablet (Lamictal) 100 mg PO QHS 10/18/21 [History Last Taken Unknown] aspirin 81 mg tablet 81 mg PO DAILY 12/27/21 [History Last Taken Unknown] melatonin 3 mg tablet (Melatin) 3 mg PO QHS 12/27/21 [History Last Taken Unknown] metformin 500 mg tablet 500 mg PO DAILY 12/27/21 [History Last Taken Unknown] Lactobacillus acidophilus 1.5 mg (250 million cell) capsule (Probiotic Acidophilus) 1,000 mmu cells PO BID 02/28/22 [History Last Taken Unknown] acetaminophen 325 mg tablet (Tylenol) 1,300 mg PO QHS 02/28/22 [History Last Taken Unknown] loratadine 10 mg capsule 10 mg PO DAILY PRN ALLERGIES 02/28/22 [History Last Taken Unknown] mineral oil 15 ml PO MOWEFR 02/28/22 [History Last Taken Unknown] simethicone 125 mg capsule (Gas-X Extra Strength) 125 mg PO DAILY 02/28/22 [History Last Taken Unknown] vitamin B complex 1 cap PO DAILY 02/28/22 [History Last Taken Unknown] clindamycin HCl 150 mg capsule 300 mg PO 4X/DAY #40 caps 07/16/22 [Rx Last Taken Unknown] meclizine 50 mg tablet (Antivert) 50 mg PO BID PRN vertigo 9 days #14 tabs 07/16/22 [Rx Last Taken Unknown] Allergy/AdvReac Type Severity Reaction Status Date / Time barium iodide Allergy Hives Verified 07/16/22 16:00 Penicillins [PCN] Allergy Unknown Verified 07/16/22 16:00 tamsulosin [From Flomax] Allergy Hives Verified 07/16/22 16:00 Surgical History History of cardiac catheterization History of esophagogastroduodenoscopy (EGD) History of Brad fundoplication History of surgery Hx laparoscopic cholecystectomy Hx of appendectomy Hx of bilateral cataract extraction Hx of colonoscopy Hx of foot surgery Hx of hemorrhoidectomy Hx of inguinal hernia surgery Hx of parotidectomy Hx of rotator cuff surgery Hx of shoulder surgery S/P CABG x 3 Social History Smoking Status: Former smoker alcohol intake: current substance use type: does not use seatbelt use: always do you feel safe at home: Yes ROS ROS ED ROS Narrative Past medical history: Reviewed Medications: Reviewed Social history: Noncontributory Review of systems: All systems negative except as indicated General: No fever Eyes: No visual changes ENT: As in HPI Neck: No neck pain Cardiovascular: No chest pain Respiratory: No shortness of breath or cough Gastrointestinal: No abdominal pain, nausea vomiting or diarrhea Genitourinary: No dysuria Musculoskeletal: Denies myalgias no difficulty with ambulation Skin: No rash Neurological: No memory loss, confusion or any focal weakness. Vertigo as in HPI Psych: No recent behavioral changes Hematologic: No easy bleeding or easy bruising EXAM Physical Exam Narrative Exam Narrative: Physical exam General: Patient appears relatively comfortable laying in bed. Head: Normocephalic, Atraumatic Eyes: Conjunctiva not pale. Pupils are equal reactive. He has leftward saccade. No nystagmus ENT: He has pustules on the back of his throat and uvula slight enlargement of the uvula. He has a normal voice. He has rhinorrhea. TMs show bilateral fluid collection but no erythema, they are slightly bulging. Neck: Supple, Nontender, he has pain in the anterior lymph node region bilaterally but I do not palpate actual lymph nodes. Cardiovascular: Regular rate, Regular rhythm Respiratory: No distress, CTA bilaterally Abdomen: Soft, Nontender, Nondistended Back: Nontender, Normal Inspection. Negative for: CVA tenderness Extremities: Nontender, No edema Skin: Normal color, No rash Neurological: Alert, Normal Strength, Normal Sensation. Normal cerebellar normal Romberg. Psychological: Normal affect Const Vital Signs: 07/16/22 16:01 07/16/22 16:44 07/16/22 19:39 Temperature 97.2 F L 98.0 F Temperature Source Temporal Oral Pulse Rate 74 69 Respiratory Rate 14 18 Respiratory Effort Normal Non-Labored Respiratory Pattern Normal Blood Pressure 178/108 H 173/89 H Blood Pressure Mean 131 117 Pulse Ox 97 100 Oxygen Delivery Method Room Air Room Air MDM MDM Lab Data Labs: Laboratory Results - last 24 hr 07/16/22 07/16/22 17:40 17:40 WBC 11.4 H RBC 4.46 L Hgb 14.9 Hct 41.7 MCV 93.5 MCH 33.4 H MCHC 35.7 RDW Std Deviation 41.5 RDW Coeff of Candy 12.0 Plt Count 257 MPV 8.2 Immature Gran % (Auto) 0.400 Neut % (Auto) 80.7 H Lymph % (Auto) 9.0 L [place] % (Auto) 6.9 Eos % (Auto) 2.6 Baso % (Auto) 0.4 Absolute Neuts (auto) 9.2 H Absolute Lymphs (auto) 1.02 Nucleated RBC % 0 Sodium 133 L Potassium 4.5 Chloride 99 Carbon Dioxide 26.0 Anion Gap 8 BUN 14 Creatinine 0.89 Estim Creat Clear Calc 71.72 Est GFR (MDRD) Af Amer 107 Est GFR (MDRD) Non-Af 89 BUN/Creatinine Ratio 15.8 Glucose 107 H Calcium 9.7 Total Bilirubin 0.60 AST 27 ALT 34 Alkaline Phosphatase 48 Total Protein 8.1 Albumin 4.2 Globulin 3.9 Albumin/Globulin Ratio 1.1 Radiography Diagnostic Testing: Clinical Impression(s) from Imaging Studies Brain CT 07/16/22 17:35 IMPRESSION: There are no acute intracranial findings. Electronically Signed: Jack Green MD at 18:44 EDT , Treatment and Re-Evaluation Narrative: Patient has an unremarkable work-up. His vertigo significantly improved with treatment. I believe this is benign paroxysmal positional vertigo. Patient a lso has pharyngitis which I will treat. Discharge Plan Triage Chief Complaint: Dizziness ED Provider: Perez Michael Dx/Rx/DC Orders Clinical Impression: Pharyngitis, Benign paroxysmal positional vertigo Instructions: BPPV, ED Pharyngitis, Report Pending Prescriptions: New clindamycin HCl 150 mg capsule 300 mg PO 4X/DAY Qty: 40 0RF Antivert 50 mg tablet 50 mg PO BID PRN (Reason: vertigo) 9 Days Qty: 14 0RF No Action lamotrigine [Lamictal] 25 mg tablet 100 mg PO QHS docusate sodium [Colace] 100 mg capsule 100 mg PO DAILY promethazine 25 MG tablet 25 mg PO Q8H PRN PRN (Reason: Nausea) Qty: 10 0RF losartan 50 MG tablet 25 mg PO BID Label Comments: BP dicyclomine 20 MG tablet 20 mg PO QHS Label Comments: IBS propranolol 120 MG capsule,extended release 24 hr 120 mg PO DAILY Label Comments: BP finasteride 5 MG tablet 5 mg PO DAILY Label Comments: PROSTATE rosuvastatin 10 MG tablet 20 mg PO QHS Label Comments: CHOLESTEROL Omeprazole [Prilosec] 40 MG capsule 40 mg PO BID calcium-vitamin D3-vitamin K [Citracal-D3 Soft Chew] 1 EACH tablet,chewable 1 ea PO DAILY ascorbic acid (vitamin C) [Vitamin C] 1,000 MG tablet 1,000 mg PO DAILY cholecalciferol (vitamin D3) [Vitamin D3] 2,000 UNIT capsule 1,000 unit PO BID trazodone 50 mg Tablet 25 mg PO QHS fluticasone propionate [Flonase] 50 mcg/actuation Gable,Suspension 2 spray INTRANASAL DAILY fluticasone propionate [Flovent HFA] 110 mcg/actuation HFA aerosol inhaler 1 - 2 puff INHALATION PRN PRN (Reason: ASTHMA) Combivent Respimat 20-100 mcg/actuation mist 1 - 2 puff INHALATION PRN PRN (Reason: ASTHMA) metformin 500 mg Tablet 500 mg PO DAILY melatonin [Melatin] 3 mg Tablet 3 mg PO QHS aspirin 81 mg Tablet 81 mg PO DAILY mineral oil Oil 15 ml PO MOWEFR acetaminophen [Tylenol] 325 mg Tablet 1,300 mg PO QHS simethicone [Gas-X Extra Strength] 125 mg Capsule 125 mg PO DAILY vitamin B complex Capsule 1 cap PO DAILY loratadine 10 mg Capsule 10 mg PO DAILY PRN (Reason: ALLERGIES) Probiotic Acidophilus 1.5 mg (250 million cell) Capsule 1,000 mmu cells PO BID Primary Care Provider: Racquel Washington Referrals: Racquel Washington MD [Primary Care Provider] - 3-5 Days Disposition Disposition: Home, Self Care
[2022-07-16] MEDS: Meclizine HCl 25 MG Tablet PO (17:41)
[2022-07-16] MEDS: diazePAM 5 MG Tablet 2.5 MG PO (17:42)
[2022-07-16 17:56] LABS: Absolute Lymphocyte Count 1.02 X10^3/uL (0.83-4.51); Absolute Neutrophil Count 9.2 X10^3/uL (2.0-7.7); Basophil# 0.05 X10^3/uL; Basophil% 0.4 % (0-1); Eosinophil# 0.29 X10^3/uL; Eosinophils% 2.6 % (0-5); Hematocrit 41.7 % (40-54); Hemoglobin 14.9 g/dL (13.0-16.5); Lymphocyte # 1.02 X10^3/ul (0.83-4.51); Mean Corp Hgb Conc 35.7 g/dL (32-36); Mean Corpuscular Hgb 33.4 pg (27.0-32.0); Mean Corpuscular Volume 93.5 fL (80-94); Mean Platelet Vol. 8.2 fl (6.2-12.0); Monocyte# 0.79 X10^3/uL; Monocyte% 6.9 % (0-10); NRBC Flagged by Analyzer 0 % (0-5); Neutrophil # 9.18 X10^3/uL (2.7-7.7); Neutrophil % 80.7 % (47-70); Platelet Count 257 K/mm3 (150-450); RBC Distribution Width SD 41.5 fl (35.1-43.9); Red Blood Count 4.46 M/mm3 (4.6-6.2); White Blood Count 11.4 K/mm3 (4.4-11.0)
[2022-07-16 18:16] LABS: ALB/GLOB Ratio 1.1 RATIO (0.9-2.4); AST(SGOT) 27 U/L (15-37); Alanine Aminotransfer ALT/SGPT 34 U/L (16-61); Albumin, Serum 4.2 g/dL (3.2-5.0); Alkaline Phosphatase 48 U/L (45-117); Anion Gap 8 (5-15); BUN 14 mg/dL (7-18); BUN/Creat Ratio 15.8 RATIO (10-20); Calcium,Total 9.7 mg/dL (8.5-10.1); Chloride 99 mmol/L (98-107); Creatinine, Serum 0.89 mg/dL (0.70-1.30); EST Glomerular Filtration Rate 89 mL/min (>60); Est Glom Filt Rate - Afr Amer 107 mL/min (>60); Estimated Creatinine Clearance 71.72 ml/min; Globulin 3.9 g/dL (2.2-4.2); Glucose 107 mg/dL (74-106); Potassium 4.5 mmol/L (3.5-5.1); Protein, Total 8.1 g/dL (6.4-8.2); Sodium Level 133 mmol/L (136-145)
[2022-07-16] MEDS: Clindamycin 600 MG/50 ML BAG 100 MG IV (18:36)
[2022-07-16] MEDS: Acetaminophen 500 MG Tablet 1000 MG PO (19:35)
[2022-07-16 19:39] VITALS: BP 173/89; PULSE 69; RESP 18; TEMP 36.7; O2SAT 100
== END 2022-07-16 20:29 | disposition home or self-care (01) ==
PROVIDERS: Emergency Provider Emergency Medicine; PCP Internal Medicine; Visit Provider Emergency Medicine
DX: J02.9 Acute pharyngitis, unspecified (principal); H81.10 Benign paroxysmal vertigo, unspecified ear; G47.30 Sleep apnea, unspecified; Z87.891 Personal history of nicotine dependence
CPT/HCPCS: 70450; 80053; 85025; 87880; 96365; 99284

== ENCOUNTER → 2022-08-18 | Outpatient (CLI) | payer MEDICARE, OTHER, SELFPAY | END | disposition home or self-care (01) | PROVIDERS: PCP Internal Medicine; Visit Provider Internal Medicine | DX: G47.33 Obstructive sleep apnea (adult) (pediatric) (principal); Z99.89 Dependence on other enabling machines and devices; G47.34 Idiopathic sleep related nonobstructive alveolar hypoventilation | CPT/HCPCS: 95810 ==

== ENCOUNTER → 2022-12-16 | Outpatient (CLI) | payer MEDICARE, OTHER, SELFPAY ==
--- NOTE | 2022-12-16 07:56 | MRI_ITS ---
STUDY: MRI LEFT SHOULDER REASON FOR EXAM: Male, 77 years old. PAIN IN LEFT SHOULDER TECHNIQUE: Standardized fat and water weighted pulse sequences were obtained in all 3 orthogonal planes. COMPARISON: None. FINDINGS: There is a 0.9 cm full-thickness tear of the distal supraspinatus tendon, series 5 images and . Normal infraspinatus tendon. Normal subscapularis tendon. Normal teres minor tendon. Normal supraspinatus muscle. Normal infraspinatus muscle. Normal subscapularis muscle. Normal teres minor muscle. Normal glenohumeral articulation. There is moderate joint effusion. Normal humeral head and visualized proximal humerus. Normal biceps labral complex. Normal intracapsular long biceps tendon. Normal labrum. Normal capsulo- ligamentous complex. Normal rotator interval. 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 There is a Type II morphology (curved) acromion, with a neutral orientation. There is moderate fluid distention of the subacromial bursa, consistent with moderate subacromial-subdeltoid bursitis. Normal visualized coracohumeral and coracoacromial ligaments. Normal quadrilateral space. Normal axillary space. Normal deltoid muscle. Normal trapezius muscle. MRI/Upper Ext Joint Only(Routine) IMPRESSION: Full-thickness rotator cuff tear of the supraspinatus tendon. Joint effusion. Subacromial subdeltoid bursitis. Acromioclavicular arthrosis with impingement. Electronically Signed: Chris Lambert MD at 11:57 EDT ,
== END | disposition home or self-care (01) ==
PROVIDERS: PCP Internal Medicine; Referring Provider Specialist; Visit Provider Specialist
DX: M25.512 Pain in left shoulder (principal); R53.1 Weakness
CPT/HCPCS: 73221

== ENCOUNTER → 2023-02-14 | Outpatient (CLI) | payer MEDICARE, OTHER, SELFPAY ==
[2023-02-14 12:36] LABS: Hemoglobin 13.2 g/dL (13.0-16.5); Mean Corp Hgb Conc 33.8 g/dL (32-36); Mean Corpuscular Hgb 31.3 pg (27.0-32.0); Mean Corpuscular Volume 92.4 fL (80-94); Mean Platelet Vol. 9.2 fl (6.2-12.0); Platelet Count 262 K/mm3 (150-450); RBC Distribution Width CV 12.7 % (11.6-14.6); RBC Distribution Width SD 42.7 fl (35.1-43.9); Red Blood Count 4.22 M/mm3 (4.6-6.2); White Blood Count 6.1 K/mm3 (4.4-11.0)
[2023-02-14 13:06] LABS: ALB/GLOB Ratio 1.4 RATIO (0.9-2.4); AST(SGOT) 19 U/L (15-37); Alanine Aminotransfer ALT/SGPT 25 U/L (16-61); Albumin, Serum 4.3 g/dL (3.2-5.0); Alkaline Phosphatase 38 U/L (45-117); Anion Gap 6 (5-15); BUN 21 mg/dL (7-18); BUN/Creat Ratio 21.5 RATIO (10-20); Calcium,Total 8.9 mg/dL (8.5-10.1); Chloride 102 mmol/L (98-107); Creatinine, Serum 0.98 mg/dL (0.70-1.30); EST Glomerular Filtration Rate 80 mL/min (>60); Est Glom Filt Rate - Afr Amer 96 mL/min (>60); Globulin 3.1 g/dL (2.2-4.2); Glucose 95 mg/dL (74-106); Potassium 4.3 mmol/L (3.5-5.1); Protein, Total 7.4 g/dL (6.4-8.2); Sodium Level 135 mmol/L (136-145)
== END | disposition home or self-care (01) ==
LOC: MTLAB 09:13
PROVIDERS: PCP Internal Medicine; Referring Provider Orthopaedic Surgery; Visit Provider Orthopaedic Surgery
DX: Z01.818 Encounter for other preprocedural examination (principal); E11.9 Type 2 diabetes mellitus without complications; Z79.84 Long term (current) use of oral hypoglycemic drugs
CPT/HCPCS: 36415; 80053; 83036; 85027

== ENCOUNTER → 2023-02-15 | Outpatient (CLI) | payer MEDICARE, OTHER, SELFPAY | END | disposition home or self-care (01) | LOC: PSN 08:06 | PROVIDERS: PCP Internal Medicine; Referring Provider Orthopaedic Surgery; Visit Provider Orthopaedic Surgery | DX: R68.83 Chills (without fever) (principal) | CPT/HCPCS: 93005 ==

== ENCOUNTER 2023-06-03 09:45 | Emergency (ER) | payer MEDICARE, OTHER, SELFPAY ==
[2023-06-03 09:46] VITALS: BP 155/105; PULSE 81; RESP 18; TEMP 36.2; O2SAT 98; BMI 25.5
--- NOTE | 2023-06-03 10:07 | RAD_ITS ---
STUDY: X-RAY - RIGHT FEMUR REASON FOR STUDY: Male, 78 years old. Injury/Pain TECHNIQUE: 4 view(s) of the femur. COMPARISON: None. FINDINGS: Normal visualized femur. Normal visualized soft tissue structure. RAD/Femur Min 2 Views IMPRESSION: Normal x-ray examination of the femur. Electronically Signed: Jaun Dimas MD at 11:35 EDT ,
--- NOTE | 2023-06-03 11:01 | EX.ED.DYSGE1 ---
HPI History of Present Illness Chief Complaint: Lower Extremity Injury Informant: patient Onset/Context/Timing Onset: Yesterday Location: Right anterior thigh Worsened by: Use, weightbearing Associated Symptoms Associated Symptoms: 1x incontinence last night, but no new numbness/anesthesias, no f. incont. Narrative Narrative: Patient slipped down 3 stairs soon injured his right thigh last night. He tried ice and compression wraps, but they are not helping. He is able to bear weight, but does have a lot of pain with movement and weakness secondary to the pain. The pain is located in his anterior right thigh. He denies any other injuries or complaints. Denies back pain or other leg pain. Denies hitting his head or neck. No new weakness or numbness or anesthesias. He had one episode of urinary incontinence last night but no urinary retention. No fecal incontinence. Prior similar symptoms: No Recent Illness/Hospitalization: No PFSH PFSH Medical History Anxiety Arthritis Cardiology follow-up encounter Cold induced bronchospasm CPAP (continuous positive airway pressure) dependence Depression Diabetes Dietary restriction Difficulty swallowing Enlarged prostate Former smoker GERD (gastroesophageal reflux disease) Heartburn High cholesterol History of echocardiogram History of GI bleed History of hiatal hernia History of steroid therapy History of stress test History of ulceration Hypertension IBS (irritable bowel syndrome) Injury of back Injury of head and neck Leg cramps Migraine headache Plantar fasciitis Sleep apnea Thyroid disease Wears glasses Wears hearing aid Home Medications promethazine 25 mg tablet 25 mg PO Q8H PRN PRN Nausea #10 tabs 02/03/16 [Rx Last Taken Unknown] Omeprazole [Prilosec] 40 mg PO BID 06/22/16 [History Last Taken 03/07/22] dicyclomine 20 mg tablet 20 mg PO QHS 06/22/16 [History Last Taken Unknown] finasteride 5 mg tablet 5 mg PO DAILY 06/22/16 [History Last Taken Unknown] losartan 50 mg tablet 25 mg PO BID 06/22/16 [History Last Taken 03/07/22] propranolol 120 mg capsule,24 hr,extended release 120 mg PO DAILY 06/22/16 [History Last Taken 03/07/22] rosuvastatin 10 mg tablet 20 mg PO QHS 06/22/16 [History Last Taken Unknown] calcium-vitamin D3-vitamin K 500 mg-1,000 unit-40 mcg chewable tablet (Citracal-D3 Soft Chew) 1 ea PO DAILY 03/07/17 [History Last Taken Unknown] ascorbic acid (vitamin C) 1,000 mg tablet (Vitamin C) 1,000 mg PO DAILY 09/21/18 [History Last Taken Unknown] cholecalciferol (vitamin D3) 50 mcg (2,000 unit) capsule (Vitamin D3) 1,000 unit PO BID 09/21/18 [History Last Taken Unknown] fluticasone propionate 110 mcg/actuation HFA aerosol inhaler (Flovent HFA) 1 - 2 puff inhalation PRN PRN ASTHMA 09/21/21 [History Last Taken Unknown] fluticasone propionate 50 mcg/actuation nasal spray,suspension 2 spray intranasal DAILY 09/21/21 [History Last Taken Unknown] ipratropium 20 mcg-albuterol 100 mcg/actuation mist for inhalation (Combivent Respimat) 1 - 2 puff inhalation PRN PRN ASTHMA 09/21/21 [History Last Taken Unknown] trazodone 50 mg tablet 25 mg PO QHS 09/21/21 [History Last Taken Unknown] docusate sodium 100 mg capsule (Colace) 100 mg PO DAILY 10/18/21 [History Last Taken Unknown] lamotrigine 25 mg tablet (Lamictal) 100 mg PO QHS 10/18/21 [History Last Taken Unknown] aspirin 81 mg tablet 81 mg PO DAILY 12/27/21 [History Last Taken Unknown] melatonin 3 mg tablet (Melatin) 3 mg PO QHS 12/27/21 [History Last Taken Unknown] metformin 500 mg tablet 500 mg PO DAILY 12/27/21 [History Last Taken Unknown] Lactobacillus acidophilus 1.5 mg (250 million cell) capsule (Probiotic Acidophilus) 1,000 mmu cells PO BID 02/28/22 [History Last Taken Unknown] acetaminophen 325 mg tablet (Tylenol) 1,300 mg PO QHS 02/28/22 [History Last Taken Unknown] loratadine 10 mg capsule 10 mg PO DAILY PRN ALLERGIES 02/28/22 [History Last Taken Unknown] mineral oil 15 ml PO MOWEFR 02/28/22 [History Last Taken Unknown] simethicone 125 mg capsule (Gas-X Extra Strength) 125 mg PO DAILY 02/28/22 [History Last Taken Unknown] vitamin B complex 1 cap PO DAILY 02/28/22 [History Last Taken Unknown] clindamycin HCl 150 mg capsule 300 mg (2 x 150 mg) PO 4X/DAY #40 caps 07/16/22 [Rx Last Taken Unknown] meclizine 50 mg tablet (Antivert) 50 mg PO BID PRN vertigo 9 days #14 tabs 07/16/22 [Rx Last Taken Unknown] mebgng-bakewvkw-lbwaeyl 6,000-19,000-30,000 unit capsule,delayed rel (Creon) See Rx Instructions PO BID #320 caps 08/05/22 [Rx Last Taken Unknown] Allergy/AdvReac Type Severity Reaction Status Date / Time barium iodide Allergy Hives Verified 01/30/23 09:16 Penicillins [PCN] Allergy Unknown Verified 01/30/23 09:16 tamsulosin [From Flomax] Allergy Hives Verified 01/30/23 09:16 Surgical History History of cardiac catheterization History of esophagogastroduodenoscopy (EGD) History of Brad fundoplication History of surgery Hx laparoscopic cholecystectomy Hx of appendectomy Hx of bilateral cataract extraction Hx of colonoscopy Hx of foot surgery Hx of hemorrhoidectomy Hx of inguinal hernia surgery Hx of parotidectomy Hx of rotator cuff surgery Hx of shoulder surgery S/P CABG x 3 Social History Smoking Status: Former smoker alcohol intake: current substance use type: does not use seatbelt use: always do you feel safe at home: Yes ROS ROS ED Review of Systems ROS Unobtainable: Denies due to encephalopathy Constitutional Constitutional ED: Denies chills Eyes Eyes: Denies blurry vision ENT ENT ED: Denies ear pain Cardiovascular Cardiovascular: Denies chest pain Respiratory/Chest Respiratory/Chest: Denies cough Gastrointestinal Gastrointestinal: Denies abdominal pain Genitourinary Genitourinary ED: Denies dysuria, hematuria or urinary frequency Musculoskeletal Musculoskeletal: Reports myalgias; Denies arthralgias, back pain or neck pain Integumentary Denies Abrasions Neurologic Neurologic: Denies headache(s), paresthesias or weakness Psychiatric Psychiatric: Denies anxiety Endocrine Endocrinology: Denies cold intolerance Allergic/Immunologic Allergic/Immunologic ED: Denies mouth swelling EXAM Physical Exam Const Vital Signs: 06/03/23 09:46 Temperature 97.2 F L Temperature Source Temporal Pulse Rate 81 Respiratory Rate 18 Blood Pressure 155/105 H Blood Pressure Mean 121 Pulse Ox 98 Oxygen Delivery Method Room Air Positive well nourished and well developed General Appearance ED: well developed HEENT Reports moist mucous membranes Eyes EOMs intact bilaterally Neck supple Resp normal respiratory effort Cardio regular rate and regular rhythm GI normal to inspection, nondistended, normoactive bowel sounds Back/Spine no CVA tenderness Thoracic Spine / Upper Back: Negative for paraspinal muscle tenderness Lumbar Spine / Lower Back: Negative for lumbar spinal tenderness Extremity normal to inspection General Extremety ED: Yes tenderness; Negative for edema or other findings General Extremity: Negative for edema or other findings Neuro oriented x3 and no sensory deficits noted Sensorium / Orientation: alert Sensory Exam: No sensory level loss detected Motor Exam: strength 5/5 throughout; Negative for general weakness or strength abnormal Psych mental status grossly normal Skin no rashes or lesions noted and no wounds MDM MDM MDM Narrative Medical decision making narrative: Patient had mechanical fall and injured his right femur. X-rays were obtained. He declined pain medicine. He did not have any other injuries. He had an episode of urinary incontinence. He has a history of an enlarged prostate and he believes this was related to pain. He was not having retention or fecal incontinence. No anesthesias. No blood thinners. No back pain. Radiography Diagnostic Testing: Clinical Impression(s) from Imaging Studies Femur X-Ray 06/03/23 10:07 IMPRESSION: Normal x-ray examination of the femur. Electronically Signed: Jaun Dimas MD at 11:35 EDT Reading Location ID and State: [facility] / [place] , Service support , I personally reviewed the x-rays of the patient's right femur and they show no acute abnormality or fracture. Differential Diagnosis Why less likely: Likely myofascial pain. Considered fractures. X-rays were unremarkable. Considered other injuries including back injuries but he was not having any pain or tenderness on exam. Considered cutaneous, neurologic, and vascular pathologies, but his exam was reassuring and these were not identified. Treatment and Re-Evaluation :: Patient declined pain medicine. We will treat at home with crutches. He has crutches. Rest, ice, elevate. [id number] remedies for pain. Follow-up with primary care. Discharge home. Impression #1 right leg pain Discharge Plan Triage Chief Complaint: Lower Extremity Injury ED Provider: Behzad Huertas Dx/Rx/DC Orders Instructions: ED Contusion, Lower Extremity Prescriptions: No Action lamotrigine [Lamictal] 25 mg tablet 100 mg PO QHS docusate sodium [Colace] 100 mg capsule 100 mg PO DAILY Creon 6,000-19,000 -30,000 unit capsule,delayed release(DR/EC) See Rx Instructions PO BID Qty: 320 2RF Rx Instructions: take 1-2 with snacks and 2-3 with meals promethazine 25 MG tablet 25 mg PO Q8H PRN PRN (Reason: Nausea) Qty: 10 0RF losartan 50 MG tablet 25 mg PO BID Patient Comments: BP dicyclomine 20 MG tablet 20 mg PO QHS Patient Comments: IBS propranolol 120 MG capsule,extended release 24 hr 120 mg PO DAILY Patient Comments: BP finasteride 5 MG tablet 5 mg PO DAILY Patient Comments: PROSTATE rosuvastatin 10 MG tablet 20 mg PO QHS Patient Comments: CHOLESTEROL Omeprazole [Prilosec] 40 MG capsule 40 mg PO BID calcium-vitamin D3-vitamin K [Citracal-D3 Soft Chew] 1 EACH tablet,chewable 1 ea PO DAILY ascorbic acid (vitamin C) [Vitamin C] 1,000 MG tablet 1,000 mg PO DAILY cholecalciferol (vitamin D3) [Vitamin D3] 2,000 UNIT capsule 1,000 unit PO BID trazodone 50 mg Tablet 25 mg PO QHS fluticasone propionate [Flonase] 50 mcg/actuation [place],Suspension 2 spray INTRANASAL DAILY fluticasone propionate [Flovent HFA] 110 mcg/actuation HFA aerosol inhaler 1 - 2 puff INHALATION PRN PRN (Reason: ASTHMA) Combivent Respimat 20-100 mcg/actuation mist 1 - 2 puff INHALATION PRN PRN (Reason: ASTHMA) metformin 500 mg Tablet 500 mg PO DAILY melatonin [Melatin] 3 mg Tablet 3 mg PO QHS aspirin 81 mg Tablet 81 mg PO DAILY mineral oil Oil 15 ml PO MOWEFR acetaminophen [Tylenol] 325 mg Tablet 1,300 mg PO QHS simethicone [Gas-X Extra Strength] 125 mg Capsule 125 mg PO DAILY vitamin B complex Capsule 1 cap PO DAILY loratadine 10 mg Capsule 10 mg PO DAILY PRN (Reason: ALLERGIES) Probiotic Acidophilus 1.5 mg (250 million cell) Capsule 1,000 mmu cells PO BID clindamycin HCl 150 mg capsule 300 mg PO 4X/DAY Qty: 40 0RF Antivert 50 mg tablet 50 mg PO BID PRN (Reason: vertigo) 9 Days Qty: 14 0RF Primary Care Provider: Racquel Washington Referrals: Racquel Washington MD [Primary Care Provider] - Disposition Disposition: Home, Self Care
== END 2023-06-03 11:53 | disposition home or self-care (01) ==
PROVIDERS: Emergency Provider Emergency Medicine; PCP Internal Medicine; Visit Provider Emergency Medicine
DX: M79.651 Pain in right thigh (principal); G47.30 Sleep apnea, unspecified; Z87.891 Personal history of nicotine dependence
CPT/HCPCS: 73552; 99282

== ENCOUNTER → 2023-06-08 | Outpatient (CLI) | payer MEDICARE, OTHER, SELFPAY ==
--- NOTE | 2023-06-08 16:18 | MRI_ITS ---
STUDY: MRI LOWER EXTREMITY RIGHT THIGH WITHOUT CONTRAST REASON FOR EXAM: Male, 78 years old. Bruising, hematoma and swelling. TECHNIQUE: Multisequence multiplanar imaging of the right femur proximally was obtained without contrast. COMPARISON: Right femur x-rays dated June 03, 2023. FINDINGS: Large knee effusion (axial series 5 images 34-45). Extensive superficial subcutaneous soft tissue edema and extensive circumferential strains of the anterior, posterior, medial and lateral compartmental musculature (axial series 5 images 1-46). Distal quadriceps tendinosis with increased signal intensity and thickening (sagittal series 3 images 13-19, axial series 5 images 29-38). Normal femur. MRI/Lower Ext/No Jt/w/o IMPRESSION: Extensive superficial and subcutaneous soft tissue edema. Diffuse strains of the anterior, posterior, medial and lateral compartmental musculature of the thigh. Distal quadriceps tendinosis without a complete tear. Moderate to large knee joint effusion. No focal intramuscular fluid collections. Electronically Signed: Say Hodgson MD at 9:53 EDT ,
== END | disposition home or self-care (01) ==
LOC: MRI 16:15
PROVIDERS: PCP Internal Medicine; Referring Provider Anesthesiology Pain Medicine; Visit Provider Anesthesiology Pain Medicine
DX: S70.11XA Contusion of right thigh, initial encounter (principal); R60.9 Edema, unspecified
CPT/HCPCS: 73718

== ENCOUNTER → 2023-11-16 | Outpatient (CLI) | payer MEDICARE, OTHER, SELFPAY ==
--- NOTE | 2023-11-16 18:44 | CT_ITS ---
STUDY: CT ABDOMEN AND PELVIS WITH CONTRAST REASON FOR EXAM: Male, 78 years old. constipation RADIATION DOSAGE (If Supplied By Facility): CTDIvol = ( 16.87 ) mGy, DLP = ( 865.16 ) mGycm TECHNIQUE: Transaxial images were obtained from the dome of the diaphragm to the symphysis pubis with oral contrast. Oral and amp; IV Readi-CAT and amp; 100mL Isovue-370 was administered. Sagittal and coronal images were reconstructed. Individualized dose optimization techniques were used for this CT. COMPARISON: 02/03/2016 FINDINGS: The visualized lung bases are unremarkable. The visualized portions of the heart are within normal limits. Normal liver. There is non-visualization of the gallbladder, which may be secondary to either contraction or a prior cholecystectomy. Normal spleen. Normal pancreas. Normal bilateral adrenal glands. Normal right kidney. Normal left kidney. 3.5 cm exophytic cyst in the midsection left kidney. Normal visualized stomach. Normal small intestine. Normal colon. There is non-visualization of the appendix. Focal dilatation of the proximal infrarenal abdominal aorta with a maximal diameter of 2.5 cm. Normal inferior vena cava. Normal retroperitoneum. Normal urinary bladder. Dorsal column spinal stimulator in the left flank. Mild levoscoliosis lumbar spine with degenerative disc disease CT/Abdomen/Pelvis WITH Contrast IMPRESSION: No acute abnormality. Electronically Signed: Russell Dorman MD at 20:12 EST ,
[2023-11-16 19:22] LABS: CREATININE FINGERSTICK 1.1 mg/dL (0.70-1.30)
== END | disposition home or self-care (01) ==
LOC: CT 18:44
PROVIDERS: PCP Internal Medicine; Referring Provider Internal Medicine Gastroenterology; Visit Provider Internal Medicine Gastroenterology
DX: K59.09 Other constipation (principal); K58.1 Irritable bowel syndrome with constipation
CPT/HCPCS: 74177; Q9967

== ENCOUNTER → 2024-01-08 | Outpatient (CLI) | payer MEDICARE, OTHER, SELFPAY ==
--- NOTE | 2024-01-08 11:00 | MRI_ITS ---
EXAM: MR LUMBAR SPINE WITHOUT INTRAVENOUS CONTRAST CLINICAL INDICATION: LUMBAR RADICULOPATHY TECHNIQUE: Multiplanar and multisequence MR images of the lumbar spine without intravenous contrast. COMPARISON: No relevant prior studies available. FINDINGS: VERTEBRAE: Mild retrolisthesis of L2 on L3 and L3 on L4 related to underlying joint changes. Normal vertebral body height. No bone marrow edema. SPINAL CORD: Normal. Normal position and signal intensity of the conus medullaris. SOFT TISSUES: Normal. DISCS/SPINAL CANAL/NEURAL FORAMINA: L1-L2: L1-2: Mild to moderate disc space narrowing. No disc protrusion. Normal spinal canal and lateral recesses. Normal neuroforamina. L2-L3: Mild to moderate disc space narrowing. Broad-based disc protrusion and posterior ligamentous thickening results in mild spinal stenosis. Additional facet arthropathy results in narrowing of the neural foramen. Left neural foramen is intact. L3-L4: Moderate disc space narrowing. Mild broad-based disc protrusion, facet arthropathy and ligamentous hypertrophy results in mild spinal stenosis and moderate right and mild left neural foraminal narrowing. L4-L5: Moderate disc space narrowing. Broad-based disc protrusion, facet arthropathy and ligamentous hypertrophy results in mild spinal stenosis and moderate to severe right and moderate left neural foraminal narrowing. L5-S1: Moderate to severe disc space narrowing. Left central disc herniation, ligamentous hypertrophy and facet arthropathy results in moderate right and severe left neural foraminal narrowing and mild spinal stenosis. MRI/Spine Lumbar (Routine) IMPRESSION: Multilevel disc degeneration facet arthropathy resulting in mild multilevel neural foraminal narrowing and moderate to severe multilevel neural foraminal narrowing. Electronically Signed: Dilip Courtney MD at 16:31 EDT ,
== END | disposition home or self-care (01) ==
LOC: MRI 10:53
PROVIDERS: PCP Internal Medicine
DX: M54.16 Radiculopathy, lumbar region (principal)
CPT/HCPCS: 72148

== ENCOUNTER → 2024-10-28 | Outpatient (CLI) | payer MEDICARE, OTHER, SELFPAY | END | disposition home or self-care (01) | LOC: LABSPEC 15:23 | PROVIDERS: PCP Internal Medicine; Referring Provider Otolaryngology; Visit Provider Otolaryngology | DX: J32.9 Chronic sinusitis, unspecified (principal) | CPT/HCPCS: 87070; 87205 ==

== ENCOUNTER → 2024-11-12 | Outpatient (CLI) | payer MEDICARE, OTHER, SELFPAY ==
--- NOTE | 2024-11-12 13:01 | RAD_ITS ---
PROCEDURE: Thoracic spine radiographs, two views REASON FOR EXAM: Evaluate SCS leads. TECHNIQUE: Two views of the thoracic spine were obtained. COMPARISON: None. FINDINGS: AP and lateral thoracic spine radiographs were obtained. The patient is rotated to the left on the AP view. Sternotomy wires are present. Bones are osteopenic. No focal subluxation of the thoracic spine. Moderate multilevel degenerative disc disease is present. Mild height loss of a few lower thoracic vertebral bodies, age-indeterminate. The grossly intact spinal stimulator leads project over the posterior aspect midthoracic spinal canal. RAD/Thoracic Spine 2 Views IMPRESSION: Osteopenia. Moderate multilevel degenerative disc disease in the thoracic spin e. Mild age-indeterminate height loss of a few mid to lower thoracic vertebral bod ies. Grossly intact spinal stimulator leads project over the posterior aspect mid th oracic spinal canal. Reading Location: [facility]
--- NOTE | 2024-11-12 13:02 | RAD_ITS ---
PROCEDURE: Pelvis and right hip radiographs, three views REASON FOR EXAM: Groin pain TECHNIQUE: Three views of the pelvis and right hip were obtained. COMPARISON: None. FINDINGS: Three views of the pelvis and right hip were obtained. Bones are osteopenic. Degenerative changes in the lower lumbar spine. An electronic probable spinal stimulator battery pack projects over the mid left hemipelvis. No displaced pelvic fracture. Mild degenerative changes in the hip joints. Proximal femurs intact. No acute fracture or dislocation of the right hip. RAD/HIP, UNI W/ Pelvis 2-3 Views IMPRESSION: Osteopenia. No acute bony abnormality of the pelvis/right hip. Mild degenerative changes in the hip joints. Reading Location: [facility]
== END | disposition home or self-care (01) ==
LOC: MTRAD 12:59
PROVIDERS: PCP Internal Medicine; Referring Provider Anesthesiology Pain Medicine; Visit Provider Anesthesiology Pain Medicine
DX: R10.31 Right lower quadrant pain (principal); Z96.82 Presence of neurostimulator
CPT/HCPCS: 72070; 73502

== ENCOUNTER → 2025-06-04 | Outpatient (CLI) | payer MEDICARE, OTHER, SELFPAY ==
--- NOTE | 2025-06-04 13:57 | MRI_ITS ---
PROCEDURE: LOWER EXT/NO JT/W/O 06/04/2025 REASON FOR EXAM: UPPER LEG TRAUMA,PAIN IN RIGHT THIGH, LOCALIZED EDEMA TECHNIQUE: Procedure Code: [id number] Modality: MR Procedure: LOWER EXT/NO JT/W/O Multiplanar and multisequence images were obtained through the right thigh from the inferior portion of the right hip to the superior portion of the right knee without the use of intravenous contrast. COMPARISON: COMPARISON : Previous MRI dated 06/08/2023 FINDINGS: Bone marrow signal is normal. There is no fracture through the femur. Degenerative changes are present within the right hip with no acute fracture. Previously noted edema along the subcutaneous tissues and anterior compartment of the thigh have resolved. There is a lateral patellar tilt with degenerative changes of the knee incompletely characterized. Limited visualization of the anterior and posterior cruciate ligaments demonstrate no suspicious abnormality. These remain incompletely characterized. Mild tendinosis of the quadriceps tendon present especially along the medial fibers with partial tearing. This appearance is improved since previous exam. Limited visualization of the hip reveals no abnormality. Pelvic structures are intact. The insertion of the hamstrings tendons is unremarkable. MRI/Lower Ext/No Jt/w/o IMPRESSION: Significant interval decrease in the soft tissue edema throughout the thigh. Persistent tendinosis of the quadriceps tendon with partial tear primarily affe cting the medial fibers. Degenerative changes of the knee. Reading Location: [facility]
--- OUTSIDE RECORDS SUMMARY | 2025-06-04 20:56 | XMS RPT_ITS | CCD ---
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 Nevin Marquez Primary Care Provider Dr. Nevin Marquez Referring Provider FriendDr. Myers Attending Provider Dr. Louis Mak Other Provider BERTO RENTERIA Other Provider Dr. Perez Rendon Attending Provider Dr. Nevin Marquez Primary Care Provider Dr. Nevin Marquez Referring Provider FriendDr. Myers Attending Provider Nevin Marquez MD Primary Care Provider Emiliana Estevez MD Unavailable Linn Thomas DO Unavailable Nevin Marquez MD Primary Care Provider Emiliana Estevez MD Unavailable Linn Thomas DO Unavailable Felix, Dr. Nevin Hermosillo Primary Care Provider [place], Dr. Nevin Hermosillo Referring Provider Friend, Dr. Myers Attending Provider Felix, Dr. Nevin Hermosillo Primary Care Provider [place], Dr. Nevin Hermosillo Referring Provider Friend, Dr. Myers Attending Provider Felix, Dr. Nevin Hermosillo Primary Care Provider Arnav, Dr. Galindo Attending Provider Caren, Dr. Mota Referring Provider [place], Dr. Nevin Hermosillo Referring Provider Friend, Dr. Myers Attending Provider Emiliana Estevez MD Unavailable [place], Dr. Nevin Hermosillo Primary Care Provider Talamplisseth, Dr. Nevin Hermosillo Referring Provider Friend, Dr. Myers Attending Provider Nevin Marquez MD Primary Care Provider [place], Dr. Nevin Hermosillo Primary Care Provider Felix, Dr. Nevin Hermosillo Referring Provider Friend, Dr. Myers Attending Provider Stendal LEAD SOFTWARE DEVELOPMENT ENGINEER.STAFF PSYCHOLOGIST, Sharad Unavailable Sina LEAD SOFTWARE DEVELOPMENT ENGINEER.RESPITE WORKER, Krystal Unavailable NEVIN MARQUEZ Primary Care Unavailable CIPRIANO THOMAS JR Referring Unavaila ble NEVIN MARQUEZ Primary Care Unavailable CIPRIANO THOMAS JR Referring Unavaila ble NEVIN MARQUEZ Primary Care Unavailable CIPRIANO THOMAS JR Referring Unavaila ble MARTHA PLUMMER, CIPRIANO CHAVEZ Attending Unavaila CIPRIANO Fernandez JR Admitting Unavaila ble Talampas MD, Dr. Nevin D Primary Care Provider Sunil LAGUNAS, Dr. Jacob Attending Provider Sunil LAGUNAS, Dr. Jacob Referring Provider Felix LAGUNAS, Dr. Nevin Hermosillo Referring Provider Obdulio DELONG, Dr. Myers Attending Provider Patel LAGUNAS, Dr. Munroe Attending Provider Patel LAGUNAS, Dr. Munroe Referring Provider Sina LEAD SOFTWARE DEVELOPMENT ENGINEER.RESPITE WORKER, Krystal Unavailable Mika LEAD SOFTWARE DEVELOPMENT ENGINEER.STAFF PSYCHOLOGIST, Sharad Unavailable [phone] LINN THOMAS Referring Unavailable TALAMPAS, NEVIN D Primary Care Unavailable WILLIAM, LINN D Attending Unavailable SLEIK, LUKEALED ADRIANOUD Attending Unavailable SLEIK, LUKEALED MELOUD Referring Unavailable TALAMPAS, NEVIN D Primary Care Unavailable TALAMPAS, NEVIN D Primary Care Unavailable BRENNAN, SHARAD Attending Unavailable TALAMPAS, NEVIN D Primary Care Unavailable TALAMPAS, NEVIN D Referring Unavailable TALAMPAS, NEVIN D Primary Care Unavailable SUZIE ORTEGA Attending Unavailable SUZIE ORTEGA Referring Unavailable TALAMPAS, NEVIN D Primary Care Unavailable SELF Referring Unavailable TALAMPAS, NEVIN D Primary Care Unavailable TALAMPAS, NEVIN D Attending Unavailable TALAMPAS, NEVIN D Referring Unavailable TALAMPAS, NEVIN D Primary Care Unavailable TALAMPAS, NEVIN D Attending Unavailable TALAMPAS, NEVIN D Primary Care Unavailable THOMAS, LINN D Attending Unavailable THOMAS, LINN D Referring Unavailable TALAMPAS, NEVIN D Primary Care Unavailable THOMAS, LINN D Referring Unavailable TALAMPAS, NEVIN D Primary Care Unavailable TALAMPAS, NEVIN D Primary Care Unavailable THOMAS, LINN D Referring Unavailable TALAMPAS, NEVIN D Primary Care Unavailable THOMAS, LINN D Referring Unavailable TALAMPAS, NEVIN D Primary Care Unavailable TALAMPAS, NEVIN D Attending Unavailable Talampas, Nevin D Primary Care Unavailable Ludwig Sweeney Attending Unavailable Ludwig Sweeney Referring Unavailable Talampas, Nevin D Primary Care Unavailable Luciano Sabillon Attending Unavailable Luciano Sabillon Referring Unavailable Nevin Marquez Primary Care Unavailable Nevin Marquez Referring Unavailable Obdulio Louis Attending Unavailable Nevin Marquez Primary Care Unavailable Cecil Barber Attending Unavailabl e Cecil Barber Referring Unavailabl e Allergies Allergy Classification Reported Allergen(s) Allergy Type Date of Onset Reaction(s) Facility (20 sources) Barium sulfate; Translations: [BARIUM SULFATE] Propensity to adverse reactions (disorder) 5 Hives, Itching [facility] Repository (20 sources) erythromycin; Translations: [ERYTHROMYCIN] Drug Allergy 5 GI Upset [facility] Repository (20 sources) Penicillins; Translations: [PENICILLINS] Propensity to adverse reactions (disorder) 5 Unknown [facility] Repository (20 sources) sucralfate; Translations: [SUCRALFATE] Drug Allergy 5 GI Upset [facility] Repository (20 sources) tamsulosin; Translations: [TAMSULOSIN HCL] Drug Allergy 1 [facility] Repository (14 sources) tamsulosin Drug Allergy 2 [facility] (14 sources) barium iodide Allergy to substance 2 [facility] (20 sources) Acetaminophen / oxyCODONE; Translations: [OXYCODONE-ACETAM INOPHEN] Drug Allergy 3 GI Upset [place] (1 source) tamsulosin Drug Allergy 4 [facility] Repository (1 source) barium iodide Drug allergy (disorder) 4 [facility] Repository Medications Current Medications Medication Drug Class(es) Dates Sig (Normalized) Sig (Original) acetaminophen 325 mg oral tablet (20 sources) Start: 02-28-2022 take 4 tablets by mouth at bedtime Acetaminophen (Tylenol) 325 mg Tablet Active 1300 mg PO AT BEDTIME February 28, 2022 12:00am Start: 06-15-2021 End: 10-31-2021 acetaminophen 650 mg tab(s) (TYLENOL) take 2 capsules by m outh once daily acetaminophen (TYLENOL) 325 mg cap Take 650 mg by mouth once daily. Active End: 08-02-2021 take 2 capsules by mouth once daily acetaminophen (TYLENOL ARTHRITIS PAIN ORAL) Take 2 capsules by mouth once daily. 0 08/02/2021 Discontinued (Course of therapy completed) Comment on above: Take 2 capsules by m outh once daily. Take 650 mg by mouth once daily. acetaminophen 325 mg / HYDROcodone bitartrate 5 mg oral tablet (20 sources) Opioid Agonist Start: 5 End: take 1 tablet by mouth every six hours as needed for pain HYDROcodone-acetaminop hen (NORCO) 5-325 mg per tablet Indications: Spinal stenosis of lumbar region, unspecified whether neurogenic claudication present , DDD (degenerative disc disease), cervical , Polyarthralgia Take 1 tablet by mouth every 6 hours as needed for pain for up to 7 days. 28 tablet 10/07/2024 10/14/2024 Active Start: 02-03-2022 take 1 tablet by jacklyn th once HYDROcodone-acetaminophen (NORCO) 5-325 mg per tablet Take 1 tablet by mouth as directed. 0 02/03/2022 Active Comment on above: Take 1 tablet by jacklyn th as directed. [id number] 200 actuat albuterol 0.09 mg/actuat metered dose inhaler (20 sources) beta2-Adrenergic Agonist Start: 8 take 2 puff(s) by inhalation every four hours as needed for wheezing albuterol HFA (VENTOLIN HFA) 90 mcg/actuation inhaler Indications: Acute bronchitis, unspecified organism Inhale 2 Puffs as instructed every 4 hours as needed for Wheezing/Shortness of Breath. 1 Inhaler 3 09/06/2018 Active Start: 09-17-2014 End: 08-02-2021 albuterol (PROVENTIL) 5 mg/m L nebu Indications: Asthma exacerbation Inhale 0.5 mL as instructed every 4 hours as needed for up to 7 days. 1 DOSE NOW - BACK OFFICE. PLACE 0.5 ML PER DROPPER AND 2.5 ML OF NORMAL SALINE INTO RESERVOIR. 1 mL 0 09/17/2014 08/02/2021 Discontinued (Course of therapy completed) Comment on above: Inhale 2 Puffs as in structed every 4 hours as needed for Wheezing/Shortness of Breath. Inhale 0.5 mL as ins tructed every 4 hours as needed for up to 7 days. 1 DOSE NOW - BACK OFFICE. PLACE 0.5 ML PER DROPPER AND 2.5 ML OF NORMAL SALINE INTO RESERVOIR. 120 actuat albuterol 0.1 mg/actuat / ipratropium bromide 0.02 mg/actuat inhalation spray (20 sources) Anticholinergic, beta2-Adrenergic Agonist Start: 09-21-2021 Ipratropium-Albuterol (Combivent Respimat) 20-100 mcg/actuation mist Active 1 - 2 NMA INHALATION NEEDED as needed for ASTHMA September 21, 2021 1:00am Start: 06-10-2021 take 20-100 ug by in halation every six hours as needed ipratropium 20 mcg-albuterol 100 mcg (COMBIVENT RESPIMAT) 20-100 mcg/actuation inhaler Indications: Mucopurulent chronic bronchitis (HCC) Inhale 1 Puff as instructed every 6 hours as needed. 4 g 11 06/10/2021 Active Comment on above: Inhale 1 Puff as ins tructed every 6 hours as needed. amLODIPine 5 mg oral tablet (20 sources) Dihydropyridine Calcium Channel Kiersten Start: 4 End: 6 take 1 tablet by mouth once daily amLODIPine (NORVASC) 5 mg tablet Take 1 tablet by mouth once daily. 90 tablet 3 01/07/2025 01/02/2026 Active ascorbic acid 1000 mg oral tablet (20 sources) Vitamin C Start: 9 take 1 tablet by mouth once daily Ascorbic Acid (Vitamin C) (Vitamin C) 1,000 MG tablet Active 1000 mg PO DAILY September 21, 2018 1:00am Comment on above: Take one(1) tablet d aily. Take 1,000 mg by jacklyn th once daily. aspirin 81 mg oral tablet (20 sources) Platelet Aggregation Inhibitor, Nonsteroidal Anti-inflammatory Drug Start: 2 take 1 tablet by mouth once daily Aspirin 81 mg Tablet Active 81 mg PO DAILY December 27, 2021 12:00am Start: 11-29-2021 End: 01-15-2024 take 1 tablet by mouth once daily aspirin 81 mg chewable tablet Take 1 tablet by mouth once daily. 30 tablet 0 11/29/2021 01/15/2024 Discontinued (Course of therapy completed) Comment on above: Take 1 tablet by jacklyn th once daily. augmented betamethasone 0.5 mg/ml topical cream (20 sources) Corticosteroid betamethasone dipropionate, augmented (DIPROLENE) 0.05 % cream APPLY TO HANDS ONCE DAILY AT NIGHT WHEN FLARED, COVER WITH COTTON GLOVES OVERNIGHT Active Comment on above: APPLY TO HANDS ONCE DAILY AT NIGHT WHEN FLARED, COVER WITH COTTON GLOVES OVERNIGHT Blood Glucose Control, Normal soln (20 sources) Start: 10-31-2021 Blood Glucose Control, Normal soln 1 Ampule as directed. 1 Each 10/31/2021 Active Start: 10-31-2021 Blood Glucose Control, Normal soln 1 Ampule as directed. 1 Each 0 10/31/2021 Active Comment on above: 1 Ampule as directed . Blood-Glucose Meter (20 sources) Start: 10-31-2021 Blood-Glucose Meter 1 Device as directed. Test Three times a day. Before breakfast, lunch and before bedtime. 1 Each 10/31/2021 Active Start: 10-31-2021 Blood-Glucose Meter 1 Device as directed. Test Three times a day. Before breakfast, lunch and before bedtime. 1 Each 0 10/31/2021 Active Comment on above: 1 Device as directed . Test Three times a day. Before breakfast, lunch and before bedtime. calcium carbonate 1250 mg / cholecalciferol 1000 unt / vitamin k 0.4 mg chewable tablet (14 sources) Vitamin D Start: 7 take 1 tablet by mouth once daily Calcium-Vitamin D3-Vitamin K (Citracal Soft Chew) 1 EACH tablet,chewable Active 1 NMA PO DAILY March 07, 2017 12:00am calcium citrate/vitamin D3 (CALCIUM CITRATE + D ORAL) (20 sources) take 1 tablet by mouth once daily calcium citrate/vitamin D3 (CALCIUM CITRATE + D ORAL) Take 1 tablet by mouth once daily. Active take 1 tablet by mouth once td y calcium citrate/vitamin D3 (CALCIUM CITRATE + D ORAL) Take 1 tablet by mouth once daily. 0 Active Comment on above: Take 1 tablet by jacklyn th once daily. cholecalciferol 0.05 mg oral capsule (16 sources) Vitamin D Start: 09-21-2018 Cholecalciferol (Vitamin D3) (Vitamin D3) 2,000 UNIT capsule Active 1000 U PO TWICE A DAY September 21, 2018 1:00am take 1 tablet by mouth once td y cholecalciferol (VITAMIN D-3) 50 mcg (2,000 unit) tablet Take 2,000 Units by mouth once daily. 0 Active Comment on above: Take 2,000 Units by mouth once daily. dicyclomine hydrochloride 20 mg oral tablet (20 sources) Anticholinergic Start: End: take 1 tablet by mouth once daily dicyclomine (BENTYL) 20 mg tablet Indications: Pancreatic insufficiency (HCC) Take 1 tablet by mouth once daily. 90 tablet 3 04/06/2023 Active Comment on above: Take [address] [facility] once daily. diphenhydrAMINE hydrochloride 25 mg oral capsule (4 sources) Histamine-1 Receptor Antagonist Start: Diphenhydramine Hcl (Benadryl) 25 mg capsule Active 50 mg PO AT BEDTIME November 15, 2023 1:00am take two tabs prior to CT scan and two tab four hours after CT scan Start: 06-15-2021 End: 10-22-2021 diphenhydrAMINE 50 mg inject ion (BENADRYL) [place] 4-Zne-Vjk-Fish Oil (2 sources) Start: 09-21-2018 take 1 capsule by mouth once daily [place] 8-Fub-Uwd-Fish Oil (Fish Oil 1,000 Mg Softgel) 1 EACH capsule Active 1 EACH PO DAILY September 21, 2018 7:53pm docusate sodium 100 mg oral capsule (20 sources) Start: 10-18-2021 take 1 capsule by mouth twice daily Docusate Sodium (Colace) 100 mg capsule Active 100 MG PO TWICE A DAY October 18, 2021 5:15pm Start: 10-18-2021 take 1 capsule by [facility] once daily Docusate Sodium (Colace) 100 mg capsule Active 100 mg PO DAILY October 18, 2021 1:00am take 2 tablets by [facility] once daily docusate sodium (COLACE) 100 mg capsule Take 2 tablets by mouth once daily. 0 Active Comment on above: Take 2 tablets by [facility] once daily. Take 100 mg by mouth once daily. 24 hr fesoterodine fumarate 8 mg extended release oral tablet (1 source) Start: 06-14-20 End: 07-14-20 22 take 1 tablet by mouth once daily Fesoterodine (TOVIAZ) 8 mg Tb24 Take 1 tablet by mouth once daily. 30 tablet 1 06/14/2022 07/14/2022 Active Comment on above: Take 1 tablet by jacklyn th once daily. fluticasone propionate 0.05 mg/actuat metered dose nasal spray (20 sources) Corticosteroid Start: 10-18-19 24 End: 04-04-20 25 take 2 spray(s) nasal route once daily as needed fluticasone (FLONASE) 50 mcg/actuation nasal spray Use 2 sprays in each nostril once daily as needed. 3 each 3 04/04/2025 Active Start: 06-27-2022 End: 07-14-2022 take 2 puff(s) by mouth twice daily fluticasone (FLOVENT) 110 mcg/actuation inhaler Indications: Mucopurulent chronic bronchitis (HCC) Inhale 2 Puffs as instructed twice daily. Shake well before use. Rinse mouth after use. As directed 1 Each 5 06/27/2022 07/14/2022 Discontinued (Not on Formulary) Start: 09-21-2021 Fluticasone Pr opionate (Flovent Hfa) 110 mcg/actuation HFA aerosol inhaler Active 1 - 2 PUFF INHALATION NEEDED September 21, 2021 11:48am Start: 09-21-2021 Fluticasone Pr opionate (Flonase) 50 mcg/actuation [place],Suspension Active 2 NMA INTRANASAL DAILY September 21, 2021 1:00am Start: 09-21-2021 Fluticasone Pr opionate (Flonase) 50 mcg/actuation [place],Suspension Active 2 SPRAY INTRANASAL DAILY September 21, 2021 1:00am Start: 06-10-2021 End: 08-02-2021 take 2 puff(s) by mouth twice daily fluticasone (FLOVENT HFA) 110 mcg/actuation inhaler Inhale 2 Puffs as instructed twice daily. Shake well before use. Rinse mouth after use. 1 Each 3 06/10/2021 08/02/2021 Discontinued (Course of therapy completed) Start: 12-29-2020 End: 08-16-2022 take 2 spray(s) nasal route once daily as needed fluticasone (FLONASE) 50 mcg/actuation nasal spray Use 2 Sprays in each nostril once daily as needed. 3 Each 3 08/16/2022 Active fluticasone prop ionate (FLOVENT INHALATION) Inhale as instructed as needed. Active fluticasone prop ionate (FLOVENT INHALATION) Inhale as instructed as needed. 0 Active Comment on above: Use 2 Sprays in each nostril once daily as needed. Inhale 2 Puffs as in structed twice daily. Shake well before use. Rinse mouth after use. Inhale 2 Puffs as in structed twice daily. Shake well before use. Rinse mouth after use. As directed Inhale as instructed as needed. Fluticasone Propionate (Flovent Hfa) 110 mcg/actuation HFA aerosol inhaler (12 sources) Start: 09-21-2021 Fluticasone Propionate (Flovent Hfa) 110 mcg/actuation HFA aerosol inhaler Active 1 - 2 NMA INHALATION NEEDED as needed for ASTHMA September 21, 2021 1:00am Start: 09-21-2021 Fluticasone Pr opionate (Flovent Hfa) 110 mcg/actuation HFA aerosol inhaler Active 1 - 2 PUFF INHALATION NEEDED September 21, 2021 12:00am Start: 09-21-2021 Fluticasone Pr opionate (Flovent Hfa) 110 mcg/actuation HFA aerosol inhaler Active 1 - 2 PUFF INHALATION NEEDED September 21, 2021 1:00am furosemide 40 mg oral tablet (2 sources) Loop Diuretic Start: 12-27-2021 take 1 tablet by mouth once daily Furosemide (Lasix) 40 mg Tablet Active 40 MG PO DAILY December 27, 2021 1:53pm hydrOXYzine hydrochloride 10 mg oral tablet (5 sources) Antihistamine Start: 03-18-2022 End: 04-17-2022 take 1 tablet by mouth every eight hours as needed hydrOXYzine HCl (ATARAX) 10 mg tablet Take 1 tablet by mouth three times daily as needed for anxiety (and sleep difficulties). 90 tablet 0 03/18/2022 04/17/2022 Active Comment on above: Take 1 tablet by jacklyn th three times daily as needed for anxiety (and sleep difficulties). ibuprofen 200 mg oral tablet (20 sources) Nonsteroidal Anti-inflammatory Drug take 3 tablets by mouth twice daily ibuprofen (ADVIL) 200 mg tablet Take 400 mg by mouth two times a day. Takes 3 tablets twice a day Active take 2 tablets by mouth twice da theodore ibuprofen (ADVIL) 200 mg tablet Take 400 mg by mouth two times a day. Active Comment on above: Take 400 mg by mouth two times a day. ipratropium bromide 0.042 mg/actuat metered dose nasal spray (20 sources) Anticholinergic Start: 08-18-20 23 ipratropium bromide (ATROVENT) 42 mcg (0.06 %) nasal spray Use 2 Sprays in the nose daily at bedtime. 08/18/2023 Active Comment on above: Use 2 Sprays in the nose daily at bedtime. isopropyl alcohol 0.7 ml/ml medicated pad (20 sources) Start: 10-31-19 22 alcohol swabs Use with blood glucose test 3 times daily. Insulin Dep? No 300 Each 5 10/31/2021 Active Comment on above: Use with blood gluco se test 3 times daily. Insulin Dep? No L.acidophilus-L.rham nosus (PROBIOTIC) 15 billion cell capsule (20 sources) take 1 capsule by mouth once daily L.acidophilus-L.rha mnosus (PROBIOTIC) 15 billion cell capsule Take 1 capsule by mouth once daily. Active take 1 capsule by [facility] once daily L.acidophilus-L.rhamnosus (PROBIOTIC) 15 billion cell capsule Take 1 capsule by mouth once daily. 0 Active Comment on above: Take 1 capsule by [facility] once daily. lactobacillus acidophilus 1.5 mg oral capsule (12 sources) Start: 2 Lactobacillus Acidophilus (Probiotic Acidophilus) 1.5 mg (250 million cell) Capsule Active 1000 NMA PO TWICE A DAY February 28, 2022 12:00am lamoTRIgine 100 mg oral tablet (20 sources) Mood Stabilizer, Anti-epileptic Agent Start: 3 End: 4 take 1 tablet by mouth once daily lamoTRIgine (LAMICTAL) 100 mg tablet Take 1 tablet by mouth once daily. 90 tablet 1 05/03/2023 05/10/2023 Discontinued Start: 10-25-2022 End: 04-23-2023 take 1 tablet by mouth once daily lamoTRIgine (LAMICTAL) 100 mg tablet Take 1 tablet by mouth once daily. 90 tablet 1 10/25/2022 02/21/2023 Discontinued Start: 02-07-2022 End: 07-31-2022 take 1 tablet by mouth once daily lamoTRIgine (LAMICTAL) 100 mg tablet Take 1 tablet by mouth once daily. 90 tablet 1 05/02/2022 Active Start: 11-08-2021 End: 02-07-2022 take 0.5 tablet by mouth once daily lamoTRIgine (LAMICTAL) 150 mg tablet Take 0.5 tablets by mouth once daily. 45 tablet 0 11/08/2021 02/07/2022 Discontinued (Course of therapy completed) Start: 10-18-2021 take 2 tablets by mouth once L amotrigine (Lamictal) 25 mg tablet Active 50 MG PO ONCE October 18, 2021 5:15pm Start: 10-18-2021 take 4 tablets by mo [facility] at bedtime Lamotrigine (Lamictal) 25 mg tablet Active 100 mg PO AT BEDTIME October 18, 2021 1:00am Comment on above: Take 0.5 tablets by mouth once daily. Take 1 tablet by jacklyn th once daily. Take 1 tablet by jacklyn th once daily for 14 days. linseed oil 1000 mg oral capsule (2 sources) Start: 09-21-2021 take 1000 mg by mouth once daily Flaxseed Oil Active 1000 MG PO DAILY September 21, 2021 11:48am loratadine 10 mg oral capsule (20 sources) Start: 02-28-2022 take 1 capsule by mouth once daily as needed Loratadine 10 mg Capsule Active 10 mg PO DAILY as needed for ALLERGIES February 28, 2022 12:00am take 1 tablet by mouth once td y loratadine (CLARITIN) 10 mg tablet Take 10 mg by mouth once daily. Active Comment on above: Take 10 mg by mouth once daily. losartan potassium 50 mg oral tablet (20 sources) Angiotensin 2 Receptor Kiersten Start: 10-24-2022 End: 01-19-2024 take 1 tablet by mouth every twelve hours losartan (COZAAR) 50 mg tablet take 1 tablet twice daily 180 tablet 3 01/19/2024 Active Start: 10-31-2021 End: 10-24-2022 take 0.5 tablet by mouth twice daily losartan (COZAAR) 50 mg tablet Take 0.5 tablets by mouth twice daily. 180 tablet 3 10/31/2021 10/24/2022 Discontinued Start: 10-07-2020 End: 09-08-2021 take 1 tablet by mouth twice daily losartan (COZAAR) 50 mg tablet Take 1 tablet by mouth twice daily. 180 tablet 3 10/07/2020 09/08/2021 Discontinued Start: 06-22-2016 Losartan 50 MG tablet Active 25 mg PO TWICE A DAY June 22, 2016 12:00am Start: 06-22-2016 take 25 mg by mouth twice td y Losartan Active 25 MG PO TWICE A DAY June 22, 2016 12:00am Comment on above: Take 0.5 tablets by mouth twice daily. Take 1 tablet by jacklyn twice daily. TAKE 1 TABLET TWICE DAILY magnesium oxide 400 mg oral capsule (12 sources) Start: 12-27-2021 take 400 mg by mouth once daily Magnesium Oxide Active 400 MG PO DAILY December 27, 2021 1:53pm Start: 11-01-2021 take 1 tablet by jacklyn once daily magnesium oxide (MAG-OX) 400 mg (241.3 mg magnesium) tablet Take 1 tablet by mouth once daily. 30 tablet 0 11/01/2021 Active Comment on above: Take 1 tablet by jacklyn once daily. meclizine hydrochloride 50 mg oral tablet (17 sources) Antiemetic Start: take 1 tablet by mouth twice daily as needed Meclizine (Antivert) 50 mg tablet Active 50 mg PO TWICE A DAY as needed for vertigo 14 July 16, 2022 12:00am End: 01-15-2024 take 2 tablets by mouth twice daily as needed meclizine (ANTIVERT) 25 mg tab TAKE 2 TABLETS BY MOUTH TWICE DAILY NEEDED FOR VERTIGO 0 01/15/2024 Discontinued (Course of therapy completed) Comment on above: TAKE 2 TABLETS BY MO [facility] TWICE DAILY NEEDED FOR VERTIGO melatonin 3 mg oral tablet (20 sources) Start: 10-31-2021 End: 11-15-2022 take 1 tablet by mouth at bedtime Melatonin (Melatin) 3 mg Tablet Active 3 mg PO AT BEDTIME December 27, 2021 12:00am take 1 tablet by jacklyn th every twenty-four hours as needed melatonin 5 mg tablet Take 5 mg by mouth at bedtime as needed for insomnia. Active Comment on above: Take 1 tablet by jacklyn th at bedtime as needed (insomnia). Take 5 mg by mouth a t bedtime as needed for insomnia. 24 hr metFORMIN hydrochloride 500 mg extended release oral tablet (20 sources) Biguanide Start: 3 End: 5 take 1 tablet by mouth once daily at breakfast metFORMIN ER (GLUCOPHAGE XR) 500 mg 24 hr tablet Take 1 tablet by mouth daily with breakfast. 90 tablet 3 10/07/2024 Active Start: 12-27-2021 take 1 tablet by mouth once da theodore Metformin 500 mg Tablet Active 500 mg PO DAILY December 27, 2021 12:00am Start: 11-01-2021 End: 09-05-2022 take 1 tablet by mouth once daily at breakfast metFORMIN ER (GLUCOPHAGE XR) 500 mg 24 hr tablet Take 1 tablet by mouth daily with breakfast. 90 tablet 0 06/07/2022 Active Comment on above: Take 1 tablet by jacklyn th daily with breakfast. TAKE 1 TABLET EVERY DAY WITH BREAKFAST methylcellulose 500 mg oral tablet (20 sources) Start: 10-18-19 take 1 tablet by mouth once daily Methylcellulose (Laxative) (Citrucel) 500 mg tablet Active 500 MG PO DAILY October 18, 2021 5:15pm take 1 scoop(s) by m outh once daily methylcellulose, with sugar, (CITRUCEL, SUCROSE,) oral powder Take 1 scoop by mouth once daily. Along with miralax before bed Active End: 08-22-2023 methylcellulose (CITRUCEL OR AL) Take by mouth once daily. 0 08/22/2023 Discontinued methylcellulose (CITRUCEL ORAL) Take by mouth once daily. 0 Active Comment on above: Take by mouth once d aily. Mineral Oil (11 sources) Start: 02-28-2022 Mineral Oil Ac tive 15 ML PO MOWEFR February 27, 2022 11:00pm Start: 02-28-2022 Mineral Oil Ac tive 15 ML PO MOWEFR February 28, 2022 12:00am Mineral Oil Oil (1 source) Start: 02-28-2022 Mineral Oil Oi l Active 15 mL PO MOWEFR February 28, 2022 12:00am multivitamin with minerals (DAILY MULTIVITAMIN-MINERALS) tablet (20 sources) take 1 tablet by mouth once daily multivitamin with minerals (DAILY MULTIVITAMIN-MINERALS) tablet Take 1 tablet by mouth once daily. Active take 1 tablet by mouth once td y multivitamin with minerals (DAILY MULTIVITAMIN-MINERALS) tablet Take 1 tablet by mouth once daily. 0 Active Comment on above: [facility] mupirocin 0.02 mg/mg topical ointment (8 sources) RNA Synthetase Inhibitor Antibacterial Start: 5 mupirocin (BACTROBAN) 2 % ointment Apply 1 application to affected area three times a day. In each nostril 09/26/2024 Active omeprazole 40 mg delayed release oral capsule (20 sources) Proton Pump Inhibitor Start: End: 4 take 1 capsule by mouth once daily Omeprazole 40 mg capsule,delayed release(DR/EC) Discontinued 40 mg PO DAILY November 06, 2023 1:00am May 06, 2024 1:03pm Start: 06-22-2016 End: 10-07-2024 take 1 capsule by mouth twice daily omeprazole (PRILOSEC) 40 mg capsule Take 1 capsule by mouth two times a day. 180 capsule 3 10/07/2024 Active Comment on above: Take 1 capsule by [facility] twice daily. Take 1 capsule by [facility] two times a day. ondansetron 4 mg oral tablet (20 sources) Serotonin-3 Receptor Antagonist Start: 1 take 1 tablet by mouth every eight hours as needed ondansetron (ZOFRAN) 4 mg tablet Take 1 tablet by mouth every 8 hours as needed for nausea/vomiting. 30 tablet 3 11/05/2021 Active Start: 06-15-2021 End: 10-31-2021 ondansetron (PF) 4 mg inject ion (ZOFRAN) Start: 04-06-2021 End: 11-05-2021 take 1 tablet by mouth every six hours as needed ondansetron orally disintegrating (ZOFRAN ODT) 4 mg disintegrating tablet Take 1 tablet by mouth every 6 hours as needed for nausea/vomiting. 30 tablet 1 04/06/2021 11/05/2021 Discontinued Comment on above: Take 1 tablet by jacklyn th every 8 hours as needed for nausea/vomiting. Take 1 tablet by [facility] every 6 hours as needed for nausea/vomiting. polyethylene glycol 3350 98457 mg powder for oral solution (20 sources) Osmotic Laxative Start: End: Polyethylene Glycol 3350 (Miralax) 17 gram/dose powder Active 17 GM PO DAILY October 18, 2021 5:15pm Comment on above: Take by mouth once d aily. Dissolve dose in 4 - 8 ounces of liquid and take as directed. Taking as needed Uses When citrucel and stool softner not effective potassium chloride 20 meq extended release oral tablet (2 sources) Start: take 20 mEq by mouth once daily Potassium Chloride Active 20 MEQ PO DAILY December 27, 2021 1:53pm promethazine hydrochloride 25 mg oral tablet (20 sources) Phenothiazine Start: take 1 tablet by mouth every eight hours as needed promethazine (PHENERGAN) 25 mg tablet Take 1 tablet by mouth every 8 hours as needed. FOR NAUSEA 10 tablet 1 10/13/2020 Active Comment on above: Take 1 tablet by [facility] every 8 hours as needed. FOR NAUSEA 24 hr propranolol hydrochloride 120 mg extended release oral capsule (20 sources) beta-Adrenergic Kiersten Start: End: take 1 capsule by mouth once daily propranolol ER (INDERAL LA) 120 mg 24 hr capsule Take 1 capsule by mouth once daily. 90 capsule 3 10/07/2024 Active Comment on above: Take 1 capsule by [place] [facility] once daily. simethicone 125 mg oral capsule (20 sources) Start: take 1 capsule by mouth once daily Simethicone (Gas-X Extra Strength) 125 mg Capsule Active 125 mg PO DAILY February 28, 2022 12:00am simethicone (GAS -X ORAL) Take 1 Capful by mouth once daily. Active simethicone (GAS -X ORAL) Take 1 Capful by mouth once daily. 0 Active Comment on above: [facility]. sucralfate 1000 mg oral tablet (20 sources) Aluminum Complex Start: 10-21-2021 take 1 g by mouth twice daily Sucralfate Active 1 GM PO TWICE A DAY 60 October 21, 2021 12:33pm Start: 10-18-2021 End: 10-21-2021 take 1 mL by mouth twice daily Sucralfate 100 mg/mL buckner spension Discontinued 10 mL PO TWICE A DAY 1000 October 18, 2021 1:00am October 21, 2021 12:34pm traMADol hydrochloride 50 mg oral tablet (2 sources) Opioid Agonist Start: 12-27-2021 take 50-100 mg by mouth three times daily Tramadol Active 50 - 100 MG PO THREE TIMES A DAY December 27, 2021 1:53pm traZODone hydrochloride 50 mg oral tablet (20 sources) Serotonin Reuptake Inhibitor Start: 09-19-2023 End: 07-25-2024 take 0.5-1 tablets by mouth once daily at bedtime for depression traZODone (DESYREL) 50 mg tablet Indications: Psychophysiological insomnia Take 0.5-1 tablets by mouth daily at bedtime. For insomnia and depression 90 tablet 3 07/25/2024 Active Start: 11-15-2022 take 0.5-1 tablets b y mouth once daily at bedtime for depression traZODone (DESYREL) 50 mg tablet Indications: Psychophysiological insomnia Take 0.5-1 tablets by mouth daily at bedtime. For insomnia and depression 0 11/15/2022 Active Start: 11-05-2021 End: 03-18-2022 take 0.5-1 tablets by mouth once daily at bedtime for depression traZODone (DESYREL) 50 mg tablet Take 0.5-1 tablets by mouth daily at bedtime. For insomnia and depression 90 tablet 3 11/05/2021 03/18/2022 Discontinued (Side Effects) Start: 09-21-2021 Trazodone 50 m g Tablet Active 25 mg PO AT BEDTIME September 21, 2021 1:00am Start: 09-21-2021 take 25 mg by mouth at bedtime Trazodone Active 25 MG PO AT BEDTIME September 21, 2021 1:00am Start: 06-19-2021 End: 09-28-2021 take 0.5-1 tablets by mouth once daily at bedtime for depression traZODone (DESYREL) 50 mg tablet Take 0.5-1 tablets by mouth daily at bedtime. For insomnia and depression 90 tablet 3 11/05/2021 Active Comment on above: Take 0.5-1 tablets b y mouth daily at bedtime. For insomnia and depression Take 1 tablet by jacklyn th daily at bedtime. For insomnia and depression Vitamin B Complex (20 sources) Start: 02-28-2022 take 1 capsule by mouth once daily Vitamin B Complex Active 1 CAP PO DAILY February 27, 2022 11:00pm Start: 02-28-2022 take 1 capsule by mouth once d aily Vitamin B Complex Active 1 CAP PO DAILY February 28, 2022 12:00am take 1 tablet by mouth once td y vitamin B complex (B COMPLEX 1 ORAL) Take 1 tablet by mouth once daily. Active take 1 tablet by mouth once td y vitamin B complex (B COMPLEX 1 ORAL) Take 1 tablet by mouth once daily. 0 Active Comment on above: Take 1 tablet by jacklyn th once daily. Vitamin B Complex Capsule (1 source) Start: 02-28-2022 Vitamin B Complex Capsule Active 1 NMA PO DAILY February 28, 2022 12:00am Completed/Discontinued Medications Medication Drug Class(es) Dates Sig (Normalized) Sig (Original) amylase 087875 unt / lipase 92517 unt / protease [id number] unt delayed release oral capsule (20 sources) Start: 08-16-2022 End: 02-21-2023 take 2 capsules by mouth three times daily at mealtime oibhvo-agvnwiql-vyc lase (CREON 36) 36,000-114,000- 180,000 unit delayed release capsule Take 2 capsules by mouth three times daily with meals. 0 08/16/2022 02/21/2023 Discontinued (Cost of medication) Start: 08-05-2022 End: 05-06-2024 take 1-2 capsules by mouth twice daily, then take 2-3 capsules by mouth at mealtime Uqnsiz-Xbwwxcsk-Aknegac (Creon) 6,000-19,000 -30,000 unit capsule,delayed release(DR/EC) Discontinued 0 PO TWICE A DAY 320 August 05, 2022 5:35pm May 06, 2024 1:03pm take 1-2 with snacks and 2-3 with meals Start: 08-05-2022 End: 08-05-2022 take 1 capsule by mouth every twenty-four hours Wqllye-Axltmfhq-Iadltzk (Creon) 6,000-19,000 -30,000 unit capsule,delayed release(/EC) Discontinued 6.53695 NMA PO TWICE A DAY August 05, 2022 1:00am August 05, 2022 5:37pm do not exceed 10,000 unit/kg lipase per 24 hrs Comment on above: Take 2 capsules by m out three times daily with meals. breath-actuated 120 actuat beclomethasone dipropionate 0.08 mg/actuat metered dose inhaler (9 sources) Corticosteroid Start: 2020 End: 2021 take 2 puff(s) by inhalation twice daily beclomethasone (QVAR REDIHALER) 80 mcg/actuation inhaler Inhale 2 Puffs as instructed twice daily. 1 Each 3 06/10/2021 01/03/2022 Discontinued Comment on above: Inhale 2 Puffs as in structed twice daily. awja-jwbiz-O1-minerals -cranber 125 mg-10 mcg- 250 mg tab (2 sources) take 1 tablet by mouth once daily rlfe-bbrek-V1-mineral s-cranber 125 mg-10 mcg- 250 mg tab Take 1 tablet by mouth once daily. 0 Active Comment on above: Take 1 tablet by jacklyn once daily. calcium citrate 1500 mg / cholecalciferol 200 unt oral tablet (20 sources) Vitamin D Start: 2007 calcium citrate/vitamin d3(CITRACAL + D 315 MG-200 UNIT TAB) Take one(1) tablet two(2) times daily. 0 05/16/2008 Active Comment on above: Take one(1) tablet t wo(2) times daily. celecoxib 200 mg oral capsule (3 sources) Nonsteroidal Anti-inflammatory Drug Start: 2015 End: 2021 celecoxib (CELEBREX) 200 mg capsule Indications: DDD (degenerative disc disease), cervical 1 capsule by mouth twice per day ( Dr. Duran) 0 08/05/2016 10/31/2021 Discontinued Comment on above: 1 capsule by mouth t wice per day ( Dr. Duran) chlorpheniramine maleate 4 mg oral tablet (20 sources) Histamine-1 Receptor Antagonist take 1 tablet by mouth every six hours as needed chlorpheniramine (CHLORTRIMETON) 4 mg tablet Take 4 mg by mouth every 6 hours as needed. 0 Active Comment on above: Take 4 mg by mouth e very 6 hours as needed. clindamycin 150 mg oral capsule (10 sources) Lincosamide Antibacterial Start: 2021 End: 2023 take 2 capsules by mouth four times daily Clindamycin Hcl 150 mg capsule Discontinued 300 mg PO 4 TIMES DAILY July 16, 2022 12:00am May 06, 2024 1:02pm Start: 07-16-2022 take 300 mg by mouth four times daily Clindamycin Hcl Active 300 MG PO 4 TIMES DAILY July 16, 2022 12:00am CPAP (1 source) Start: 07-26-2018 End: 10-27-2021 CPAP AutoPAP Change settings to: 7-11 cmH2O. Continue providing: Mask per preference, heated tubing, filters, SD card, heated humidity. Lifetime Supplies. Dx: G47.33. Fax 30 day compliance report to [phone]. 1 Device 0 07/26/2018 10/27/2021 Discontinued (Other) Comment on above: AutoPAP Change setti ngs to: 7-11 cmH2O. Continue providing: Mask per preference, heated tubing, filters, SD card, heated humidity. Lifetime Supplies. Dx: G47.33. Fax 30 day compliance report to [phone]. cranberry preparation 500 mg oral capsule (7 sources) Non-Standardized Food Allergenic Extract, Non-Standardized Plant Allergenic Extract End: 01-15-2024 take 1 capsule by mouth once daily Cranberry 500 mg cap Take 1 capsule by mouth once daily. With vitamin C 0 01/15/2024 Discontinued (Course of therapy completed) take 1 capsule by mouth once anthony ly Cranberry 500 mg cap Take 1 capsule by mouth once daily. With vitamin C 0 Active Comment on above: Take 1 capsule by [facility] once daily. With vitamin C 1 ml EPINEPHrine 1 mg/ml injection (1 source) alpha-Adrenergic Agonist, beta-Adrenergic Agonist, Catecholamine Start: 1 End: 2 EPINEPHrine 1 mg/mL (1 mL) 0.3 mg injection finasteride 5 mg oral tablet (20 sources) 5-alpha Reductase Inhibitor Start: 6 End: 4 take 1 tablet by mouth once daily Finasteride 5 MG tablet Discontinued 5 mg PO DAILY June 22, 2016 12:00am May 06, 2024 1:02pm Comment on above: Take 1 tablet by [facility] once daily. 60 actuat fluticasone propionate 0.113 mg/actuat / salmeterol xinafoate 0.014 mg/actuat dry powder inhaler (20 sources) Corticosteroid, beta2-Adrenergic Agonist Start: End: 3 fluticasone propion-salmeterol (AIRDUO RESPICLICK) 113-14 mcg/actuation breath activated inhaler Indications: Mucopurulent chronic bronchitis (HCC) Inhale 1 Inhalation as instructed twice daily. 3 Each 3 11/15/2022 08/22/2023 Discontinued Start: 06-27-2022 End: 07-14-2022 take 1 puff(s) by mouth twice daily fluticasone-salmeterol (ADVAIR DISKUS) 100-50 mcg/dose inhaler Indications: Mucopurulent chronic bronchitis (HCC) Inhale 1 Puff as instructed twice daily. Rinse mouth out after use with water. 1 Each 2 06/27/2022 07/14/2022 Discontinued Start: 06-27-2022 take 1 puff(s) by [facility] twice daily fluticasone-salmeterol (ADVAIR DISKUS) 100-50 mcg/dose inhaler Indications: Mucopurulent chronic bronchitis (HCC) Inhale 1 Puff as instructed twice daily. Rinse mouth out after use with water. 1 Each 2 06/27/2022 Active Comment on above: Inhale 1 Puff as ins tructed twice daily. Rinse mouth out after use with water. Inhale 1 Inhalation as instructed twice daily. glucose 4000 mg chewable tablet (11 sources) Start: glucose 4 gram chewable tablet Take 4 tablets by mouth as needed for low blood sugar. 10 tablet 5 10/31/2021 Active Comment on above: Take 4 tablets by [facility] as needed for low blood sugar. Hydrocortisone (1 source) Corticosteroid Start: 021 End: hydrocortisone sodium succinate (PF) 100 mg in D5W 50 mL (Solu-CORTEF) Inhalational Spacing Device spcr (1 source) Start: End: Inhalational Spacing Device spcr Use device with inhaler as directed 1 Each 0 07/24/2013 10/27/2021 Discontinued (Other) Comment on above: Use device with inha ler as directed levoFLOXacin 500 mg oral tablet (2 sources) Quinolone Antimicrobial Start: End: take 1 tablet by mouth once daily levoFLOXacin (LEVAQUIN) 500 mg tablet Indications: Acute pharyngitis, unspecified etiology Take 1 tablet by mouth once daily for 14 days. 14 tablet 0 07/14/2022 07/28/2022 Comment on above: Take 1 tablet by jacklyn once daily for 14 days. 10 ml lidocaine hydrochloride 10 mg/ml injection (3 sources) Antiarrhythmic, Amide Local Anesthetic Start: End: lidocaine (PF) 10 mg/mL (1 %) 4 mL injection (XYLOCAINE) Start: 07-18-2024 End: 07-18-2024 4 mL, Injection - FOR ORTHO USE ONLY, ONCE, 1 dose, Starting on Freya 07/18/24 at 1151, Until Freya 07/18/24 at 1151 Start: 08-29-2023 End: 08-29-2023 lidocaine 2 % topical gel (X YLOCAINE) MEDICATION, NON-DATABASE (20 sources) End: 08-12-2024 take 1 tablet by mouth once daily MEDICATION, NON-DATABASE Take 1 tablet by mouth once daily. Beta Sisosterol 08/12/2024 Discontinued (Course of therapy completed) take 1 tablet by mouth once td y MEDICATION, NON-DATABASE Take 1 tablet by mouth once daily. Beta Sisosterol Active take 1 tablet by mouth once td y MEDICATION, NON-DATABASE Take 1 tablet by mouth once daily. Beta Sisosterol 0 Active Comment on above: Take 1 tablet by jacklyn once daily. Beta Sisosterol 2 ml metoclopramide 5 mg/ml injection (20 sources) Dopamine-2 Receptor Antagonist Start: 06-15-2021 End: 10-31-2021 metoclopramide HCl 10 mg injection (REGLAN) Start: 06-15-2021 metoclopramide HCl 10 mg tab(s) (REGLAN) nabumetone 500 mg oral tablet (11 sources) Nonsteroidal Anti-inflammatory Drug Start: 01-31-2023 End: 06-12-2023 take 1 tablet by mouth twice daily at mealtime nabumetone (RELAFEN) 500 mg tablet Take 500 mg by mouth twice daily. TAKE WITH FOOD. 0 01/31/2023 06/12/2023 Discontinued Comment on above: Take 500 mg by mouth twice daily. TAKE WITH FOOD. nirmatrelvir tablet 300 mg (150 mg x 2) and ritonavir tablet 100 mg in a dose pack (PAXLOVID) (4 sources) Start: 06-27-2022 End: 07-02-2022 nirmatrelvir tablet 300 mg (150 mg x 2) and ritonavir tablet 100 mg in a dose pack (PAXLOVID) Indications: COVID-19 virus infection Administer TWO pink nirmatrelvir 150 mg tablets and ONE white ritonavir 100 mg tablet for a total of three tablets twice daily. 30 tablet 0 06/27/2022 07/02/2022 Start: 06-27-2022 End: 07-02-2022 nirmatrelvir tablet 300 mg ( 150 mg x 2) and ritonavir tablet 100 mg in a dose pack (PAXLOVID) Indications: COVID-19 virus infection Administer TWO pink nirmatrelvir 150 mg tablets and ONE white ritonavir 100 mg tablet for a total of three tablets twice daily. 30 tablet 0 06/27/2022 07/02/2022 Active Comment on above: Administer TWO pink nirmatrelvir 150 mg tablets and ONE white ritonavir 100 mg tablet for a total of three tablets twice daily. nystatin [id number] unt/ml oral suspension (14 sources) Polyene Antifungal Start: End: take 1 mL by mouth three times daily Nystatin 100,000 unit/mL suspension Discontinued 1 mL PO THREE TIMES A DAY 07 04October 18, 2021 1:00am October 24, 2021 1:00am October 25, 2021 1:02am swish and swallow Start: 10-18-2021 End: 10-25-2021 take 1 mL by mouth three times daily Nystatin Discontinued 1 ML PO THREE TIMES A DAY 07 04October 18, 2021 1:00am February 7th, 2022 1:02am swish and swallow [place]-3 Fatty Acids 500 mg cap (15 sources) End: 03-14-2022 take 1 capsule by mouth twice daily [place]-3 Fatty Acids 500 mg cap Take 500 mg by mouth twice daily. 0 03/14/2022 Discontinued take 1 capsule by mouth twice da theodore [place]-3 Fatty Acids 500 mg cap Take 500 mg by mouth twice daily. 0 Active Comment on above: Take 500 mg by mouth twice daily. omega-3 fatty acids(FISH OIL 500 MG CAP) (1 source) Start: End: omega-3 fatty acids(FISH OIL 500 MG CAP) Indications: Carpal tunnel syndrome , Hyperglycemia , Osteoarthritis , Other and unspecified hyperlipidemia , Other malaise and fatigue , Osteoporosis, unspecified , Bladder neck obstruction , Hypertrophy of prostate with urinary obstruction and other lower urinary tract symptoms (LUTS) , Impotence of organic origin , Esophagitis, unspecified , Unspecified sinusitis (chronic) , Sciatica , Enthesopathy of hip region , Esophageal reflux , Unspecified essential hypertension , Migraine without aura, without mention of intractable migraine without mention of status migrainosus , Diarrhea , Hemorrhage of gastrointestinal tract, unspecified , Intestinal infection due to campylobacter Take one(1) tablet two(2) times daily. 0 01/18/2010 10/27/2021 Discontinued (Erroneous entry) Comment on above: Take one(1) tablet t wo(2) times daily. 24 hr oxybutynin chloride 10 mg extended release oral tablet (5 sources) Cholinergic Muscarinic Antagonist Start: End: take 1 tablet by mouth once daily oxybutynin ER (DITROPAN XL) 10 mg 24 hr tablet Take 1 tablet by mouth once daily. 30 tablet 2 05/03/2022 Active Comment on above: Take 1 tablet by jacklyn once daily. perflutren lipid microspheres 1.3 mL in NaCl (PF) 0.9% 10 mL injection (DEFINITY) (1 source) Start: End: perflutren lipid microspheres 1.3 mL in NaCl (PF) 0.9% 10 mL injection (DEFINITY) phenazopyridine hydrochloride 200 mg oral tablet (20 sources) Start: End: take 1 tablet by mouth every eight hours as needed phenazopyridine (PYRIDIUM) 200 mg tablet Take 1 tablet by mouth three times a day as needed. 9 tablet 09/19/2023 08/12/2024 Discontinued (Course of therapy completed) Comment on above: Take 1 tablet by jacklyn th three times a day as needed. predniSONE 20 mg oral tablet (4 sources) Start: End: take 2 tablets by mouth once daily Prednisone 20 mg tablet Discontinued 40 mg PO DAILY November 15, 2023 1:00am November 05, 2024 11:44am pre-med one hour before CT scan Start: 11-15-2023 take 40 mg by mouth once daily Prednisone Active 40 MG PO DAILY November 15, 2023 1:00am pre-med one hour before CT scan Start: 06-19-2021 End: 08-02-2021 predniSONE (DELTASONE) 10 mg tablet 20 to 40 mg causes insomnia and shakes; tolerates 10 mg daily so will do this for 4 days then adjust from there 0 06/19/2021 08/02/2021 Discontinued (Course of therapy completed) Comment on above: 20 to 40 mg causes i nsomnia and shakes; tolerates 10 mg daily so will do this for 4 days then adjust from there prochlorperazine 5 mg/ml injectable solution (2 sources) Phenothiazine Start: End: prochlorperazine 5 mg tab(s) (COMPAZINE) Start: 06-15-2021 End: 10-22-2021 prochlorperazine 5 mg inject ion (COMPAZINE) psyllium seed, with dextrose , (FIBER SUPPLEMENT ORAL) (13 sources) End: 03-14-2022 psyllium seed, with dextrose , (FIBER SUPPLEMENT ORAL) Take by mouth once daily. 0 03/14/2022 Discontinued psyllium seed, w ith dextrose, (FIBER SUPPLEMENT ORAL) Take by mouth once daily. 0 Active Comment on above: Take by mouth once d aily. rosuvastatin calcium 20 mg oral tablet (20 sources) HMG-CoA Reductase Inhibitor Start: 03-15-2023 End: 08-12-2024 rosuvastatin (CRESTOR) 20 mg tablet take 1 tablet at bedtime 90 tablet 3 02/04/2024 08/12/2024 Discontinued (Course of therapy completed) Start: 01-20-2022 End: 03-10-2023 take 1 tablet by mouth once daily at bedtime rosuvastatin (CRESTOR) 20 mg tablet Take 1 tablet by mouth daily at bedtime. 90 tablet 3 01/20/2022 03/10/2023 Discontinued Start: 10-07-2020 End: 09-08-2021 take 1 tablet by mouth once daily rosuvastatin (CRESTOR) 10 mg tablet Take 1 tablet by mouth once daily. 90 tablet 3 10/07/2020 09/08/2021 Discontinued Start: 06-22-2016 End: 01-20-2022 take 2 tablets by mouth once daily rosuvastatin (CRESTOR) 10 mg tablet Take 2 tablets by mouth once daily. 90 tablet 3 10/31/2021 01/20/2022 Discontinued Start: 06-22-2016 take 20 mg by mouth at bedtime Rosuvastatin Active 20 MG PO AT BEDTIME June 22, 2016 12:00am Comment on above: Take 2 tablets by mo [facility] once daily. Take 1 tablet by jacklyn th daily at bedtime. Take 1 tablet by jacklyn th once daily. 5 ml sodium chloride 9 mg/ml injection (3 sources) Start: 06-15-2021 End: 10-22-2021 NaCl 0.9% iv infusion Start: 06-15-2021 End: 10-22-2021 NaCl (PF) 0.9% 10-20 mL inje ction Start: 05-03-2021 End: 10-22-2021 sodium chloride 0.9 % (flush ) 10 mL (BD POSIFLUSH) sulfamethoxazole 800 mg / trimethoprim 160 mg oral tablet (1 source) Dihydrofolate Reductase Inhibitor Antibacterial, Sulfonamide Antimicrobial Start: 08-29-2023 End: 08-29-2023 sulfamethoxazole-trimethopri m 800-160 mg 1 tablet (BACTRIM DS) Start: 08-29-2023 End: 08-29-2023 sulfamethoxazole-trimethopri m 800-160 mg 1 tablet (BACTRIM DS) tadalafil 20 mg oral tablet (1 source) Phosphodiesterase 5 Inhibitor Start: 09-01-2020 End: 08-02-2021 take 1 tablet by mouth once daily as needed Tadalafil (CIALIS) 20 mg tab(s) Indications: Erectile dysfunction due to arterial insufficiency Take 1 tablet by mouth once daily. 1-2 HOURS BEFORE SEXUAL INTERCOURSE NEEDED. 8 tablet 3 09/01/2020 08/02/2021 Discontinued (Course of therapy completed) Comment on above: [facility] 1-2 HOURS BEFORE SEXUAL INTERCOURSE NEEDED. tiZANidine 4 mg oral capsule (1 source) Central alpha-2 Adrenergic Agonist Start: 09-14-2020 End: 08-02-2021 take 1 capsule by mouth every eight hours as needed tiZANidine HCl 4 mg capsule Take 1 capsule by mouth three times daily as needed. As needed 60 capsule 2 09/14/2020 08/02/2021 Discontinued (Course of therapy completed) Comment on above: Take 1 capsule by mo [facility] three times daily as needed. As needed 1 ml triamcinolone acetonide 40 mg/ml injection (2 sources) Corticosteroid Start: 07-18-2024 End: 07-18-2024 triamcinolone acetonide 40 mg injection (KeNALog 40) Start: 07-18-2024 End: 07-18-2024 40 mg, Injection - FOR ORTHO USE ONLY, ONCE, 1 dose, Starting on Freya 07/18/24 at 1151, Until Freya 07/18/24 at 1151 Problems Active Problems Problem Classification Problem Date Documented Da te Episodic/Chronic Adjustment disorders (3 sources) Adjustment disorder with mixed anxiety and depressed mood; Translations: [Adjustment disorder with mixed anxiety and depressed mood] Chronic Aortic; peripheral; and visceral artery aneurysms (20 sources) Ascending aorta dilatation; Translations: [Thoracic aortic ectasia] Onset: 1 05-03-2021 Chronic Cardiac dysrhythmias (20 sources) Supraventricular tachycardia; Translations: [Supraventricular tachycardia] Onset: 8 05-02-2018 Chronic Chronic obstructive pulmonary disease and bronchiectasis (20 sources) Mucopurulent chronic bronchitis; Translations: [Mucopurulent chronic bronchitis] Onset: 2 06-27-2022 Chronic Coronary atherosclerosis and other heart disease (20 sources) Stable angina; Translations: [Other forms of angina pectoris] Onset: 1 08-02-2021 Chronic Diabetes mellitus without complication (20 sources) Type 2 diabetes mellitus without complication; Translations: [Type 2 diabetes mellitus without complications] Onset: 3 09-05-2023 Chronic Disorders of lipid metabolism (20 sources) Mixed hyperlipidemia; Translations: [Mixed hyperlipidemia] Onset: 9 09-25-2018 Chronic Esophageal disorders (20 sources) Gastroesophageal reflux disease; Translations: [Gastro-esophageal reflux disease without esophagitis] Onset: 5 10-10-2008 Chronic Essential hypertension (20 sources) Essential (primary) hypertension; Translations: [Essential hypertension] Onset: 5 08-03-2015 Chronic Genitourinary symptoms and ill-defined conditions (3 sources) Increased frequency of urination; Translations: [Frequency of micturition] Episodic Headache; including migraine (20 sources) Migraine without aura; Translations: [Migraine without aura, not intractable, without status migrainosus] Onset: 5 10-10-2008 Chronic Hyperplasia of prostate (20 sources) Benign prostatic hypertrophy with outflow obstruction; Translations: [Benign prostatic hyperplasia with lower urinary tract symptoms] Onset: 8 10-10-2008 Chronic Miscellaneous mental health disorders (20 sources) Psychophysiologic insomnia; Translations: [Psychophysiologic insomnia] Onset: 2 01-31-2022 Chronic Mood disorders (20 sources) Moderate major depression, single episode; Translations: [Major depressive disorder, single episode, moderate] Onset: 2 01-31-2022 Chronic Nausea and vomiting (14 sources) Vomiting; Translations: [Vomiting, unspecified] 02-04-2016 Episodic Osteoarthritis (20 sources) Osteoarthritis; Translations: [Unspecified osteoarthritis, unspecified site] Onset: 9 11-12-2009 Chronic Osteoporosis (20 sources) Osteoporosis; Translations: [Age-related osteoporosis without current pathological fracture] Onset: 9 10-10-2008 Chronic Other aftercare (3 sources) Patient encounter status; Translations: [Other group home (current) drug therapy] Episodic Other connective tissue disease (1 source) Cramp in lower limb; Translations: [Sleep related leg cramps] 12-24-2024 Chronic Other connective tissue disease (1 source) Sleep related leg cramps; Translations: [Nocturnal leg cramps] Onset: Chronic Other connective tissue disease (3 sources) Tendinosis; Translations: [Other specified enthesopathies of unspecified lower limb, excluding foot] 06-12-2023 Episodic Other connective tissue disease (1 source) Pain in right thigh; Translations: [Pain in right thigh] Onset: Episodic Other diseases of bladder and urethra (20 sources) Bladder neck obstruction; Translations: [Bladder-neck obstruction] Onset: 8 10-10-2008 Chronic Other diseases of bladder and urethra (1 source) Overactive bladder; Translations: [Overactive bladder] Chronic Other ear and sense organ disorders (20 sources) Sensorineural hearing loss, bilateral; Translations: [Sensorineural hearing loss, bilateral] Onset: 7 06-23-2017 Chronic Other ear and sense organ disorders (1 source) Hearing loss; Translations: [Unspecified hearing loss, unspecified ear] 04-18-2023 Chronic Other eye disorders (1 source) Ectropion of left lower eyelid; Translations: [Unspecified ectropion of left lower eyelid] 10-07-2024 Episodic Other gastrointestinal disorders (15 sources) Irritable bowel syndrome; Translations: [Irritable bowel syndrome without diarrhea] 08-05-2022 Chronic Other gastrointestinal disorders (11 sources) Irritable bowel syndrome without diarrhea; Translations: [Irritable bowel syndrome] Chronic Other gastrointestinal disorders (20 sources) Constipation; Translations: [Constipation, unspecified] 02-04-2016 Episodic Other gastrointestinal disorders (10 sources) Passing flatus; Translations: [Flatulence] 08-05-2022 Episodic Other gastrointestinal disorders (7 sources) Flatulence; Translations: [Flatulence, eructation, and gas pain] Episodic Other gastrointestinal disorders (2 sources) Constipation, unspecified; Translations: [Constipation, unspecified] 01-30-2023 Episodic Other gastrointestinal disorders (6 sources) Chronic constipation; Translations: [Other constipation] 05-12-2023 Episodic Other gastrointestinal disorders (4 sources) Other constipation; Translations: [Constipation, unspecified] 05-12-2023 Episodic Other gastrointestinal disorders (2 sources) Constipation alternates with diarrhea; Translations: [Other specified symptoms and signs involving the digestive system and abdomen] 10-07-2024 Episodic Other hereditary and degenerative nervous system conditions (1 source) Restless legs; Translations: [Restless legs syndrome] 12-27-2024 Chronic Other lower respiratory disease (2 sources) Apnea; Translations: [Apnea, not elsewhere classified] Episodic Other male genital disorders (20 sources) Secondary erectile dysfunction; Translations: [Male erectile dysfunction, unspecified] Onset: 8 10-10-2008 Chronic Other non-traumatic joint disorders (2 sources) Effusion of right knee joint; Translations: [Effusion, right knee] 06-12-2023 Episodic Other non-traumatic joint disorders (1 source) Multiple joint pain; Translations: [Pain in unspecified joint] 10-07-2024 Episodic Other upper respiratory disease (1 source) Chronic rhinitis; Translations: [Chronic rhinitis] Chronic Other upper respiratory infections (20 sources) Chronic sinusitis; Translations: [Chronic sinusitis, unspecified] Onset: 5 Resolved: 9 09-25-2018 Chronic Other upper respiratory infections (11 sources) Pharyngitis; Translations: [Acute pharyngitis, unspecified] Episodic Pancreatic disorders (not diabetes) (4 sources) Pancreatic insufficiency; Translations: [Other specified diseases of pancreas] Episodic Peripheral and visceral atherosclerosis (16 sources) Intermittent claudication of bilateral lower limbs co-occurrent and due to atherosclerosis; Translations: [Atherosclerosis of [place] arteries of extremities with intermittent claudication, bilateral legs] Onset: 4 08-12-2024 Chronic Residual codes; unclassified (20 sources) Obstructive sleep apnea syndrome; Translations: [Obstructive sleep apnea (adult) (pediatric)] Onset: 7 11-16-2017 Chronic Residual codes; unclassified (20 sources) Abnormal rapid eye movement sleep; Translations: [Other sleep disorders] 11-16-2017 Chronic Residual codes; unclassified (20 sources) Daytime somnolence; Translations: [Other hypersomnia] Onset: 8 11-16-2017 Chronic Residual codes; unclassified (1 source) H/O Spinal surgery; Translations: [Presence of other specified functional implants] Chronic Residual codes; unclassified (1 source) Upper airway resistance syndrome; Translations: [Other sleep disorders] Chronic Residual codes; unclassified (1 source) Obstructive sleep apnea (adult) (pediatric); Translations: [ALFONSO (obstructive sleep apnea)] Onset: 8 Chronic Residual codes; unclassified (1 source) Disturbance in sleep behavior; Translations: [Sleep disorder, unspecified] Episodic Residual codes; unclassified (2 sources) Pain; Translations: [Pain, unspecified] 07-16-2024 Episodic Residual codes; unclassified (1 source) Localized edema; Translations: [Localized edema] Onset: 5 Episodic Spondylosis; intervertebral disc disorders; other back problems (20 sources) Degeneration of cervical intervertebral disc; Translations: [Other cervical disc degeneration, unspecified cervical region] Onset: 3 09-13-2021 Chronic Sprains and strains (2 sources) Strain of muscle of right thigh; Translations: [Strain of unspecified muscles, fascia and tendons at thigh level, right thigh, subsequent encounter] 06-12-2023 Episodic Unclassified (1 source) Unknown / UNK(Unknown) Onset: 5 Unclassified (1 source) Infrarenal abdominal aortic aneurysm (AAA) without rupture (HCC); Translations: [Infrarenal abdominal aortic aneurysm (AAA) without rupture (HCC)] Onset: 5 Past or Other Problems Problem Classification Problem Date Documented Da te Episodic/Chronic Abdominal pain (1 source) Right lower quadrant pain; Translations: [Right lower quadrant pain] Onset: 5 Episodic Allergic reactions (20 sources) Solar degeneration; Translations: [Other skin changes due to chronic exposure to nonionizing radiation] Onset: 1 07-30-2011 Episodic Conditions associated with dizziness or vertigo (12 sources) Benign paroxysmal positional vertigo; Translations: [Benign paroxysmal vertigo, unspecified ear] Onset: 5 07-24-2022 Episodic Diabetes mellitus without complication (20 sources) Hyperglycemia; Translations: [Hyperglycemia, unspecified] Onset: 9 11-12-2009 Episodic Esophageal disorders (20 sources) Esophagitis; Translations: [Esophagitis, unspecified] Onset: 6 10-10-2008 Episodic Gastrointestinal hemorrhage (20 sources) Gastrointestinal hemorrhage; Translations: [Gastrointestinal hemorrhage, unspecified] Onset: 5 10-10-2008 Episodic Immunizations and screening for infectious disease (6 sources) Vaccination needed; Translations: [Encounter for immunization] Onset: 4 Episodic Intestinal infection (20 sources) Enteric campylobacteriosis; Translations: [Campylobacter enteritis] Onset: 5 10-10-2008 Episodic Malaise and fatigue (20 sources) Malaise and fatigue; Translations: [Other malaise] Onset: 9 10-10-2008 Episodic Other and unspecified benign neoplasm (20 sources) Senile angioma; Translations: [Hemangioma of skin and subcutaneous tissue] Onset: 1 07-30-2011 Episodic Other connective tissue disease (20 sources) Enthesopathy of hip region; Translations: [Other specified enthesopathies of unspecified lower limb, excluding foot] Onset: 5 10-10-2008 Episodic Other connective tissue disease (20 sources) Muscle pain; Translations: [Myalgia and myositis, unspecified] Onset: 5 10-10-2008 Episodic Other connective tissue disease (20 sources) Contracture of palmar fascia; Translations: [Palmar fascial fibromatosis [Dupuytren]] Onset: 0 01-18-2010 Episodic Other connective tissue disease (20 sources) Pain in limb; Translations: [Pain in unspecified limb] Onset: 0 01-19-2010 Episodic Other connective tissue disease (20 sources) Pain in right lower limb; Translations: [Pain in right leg] Onset: 4 01-25-2024 Episodic Other connective tissue disease (1 source) Pain in right leg; Translations: [Right leg pain] Onset: 4 Episodic Other diseases of kidney and ureters (1 source) Other obstructive and reflux uropathy; Translations: [BPH with obstruction/lower urinary tract symptoms] Onset: 3 Episodic Other ear and sense organ disorders (20 sources) Bilateral tinnitus; Translations: [Tinnitus, bilateral] Onset: 9 08-21-2019 Episodic Other eye disorders (1 source) Unspecified ectropion of left lower eyelid; Translations: [Ectropion of left lower eyelid, unspecified ectropion type] Onset: 5 Episodic Other gastrointestinal disorders (20 sources) Diarrhea; Translations: [Diarrhea, unspecified] Onset: 5 10-10-2008 Episodic Other gastrointestinal disorders (1 source) Other specified symptoms and signs involving the digestive system and abdomen; Translations: [Alternating constipation and diarrhea] Onset: 5 Episodic Other non-traumatic joint disorders (1 source) Pain in unspecified joint; Translations: [Polyarthralgia] Onset: 5 Episodic Other screening for suspected conditions (not mental disorders or infectious disease) (20 sources) Raised prostate specific antigen; Translations: [Elevated prostate specific antigen [PSA]] Onset: 3 05-15-2013 Episodic Other skin disorders (20 sources) Inflamed seborrheic keratosis; Translations: [Inflamed seborrheic keratosis] Onset: 1 07-30-2011 Episodic Other skin disorders (20 sources) Seborrheic keratosis; Translations: [Other seborrheic keratosis] Onset: 1 07-30-2011 Episodic Other skin disorders (20 sources) Solar lentigo; Translations: [Other melanin hyperpigmentation] Onset: 1 07-30-2011 Episodic Other skin disorders (20 sources) Asteatosis cutis; Translations: [Xerosis cutis] Onset: 1 07-30-2011 Episodic Residual codes; unclassified (20 sources) Hypoxia; Translations: [Idiopathic sleep related nonobstructive alveolar hypoventilation] Resolved: 8 Chronic Residual codes; unclassified (1 source) Pain, unspecified; Translations: [Pain] Onset: 4 Episodic Screening and history of mental health and substance abuse codes (1 source) Encounter for screening examination for other mental health and behavioral disorders; Translations: [Encounter for screening examination for other mental health and behavioral disorders] Onset: 4 Episodic Spondylosis; intervertebral disc disorders; other back problems (20 sources) Sciatica; Translations: [Sciatica, unspecified side] Onset: 5 10-10-2008 Episodic Viral infection (20 sources) Verruca vulgaris; Translations: [Viral wart, unspecified] Onset: 1 07-30-2011 Episodic Results Test Name Value Interpretation Reference Range Facility [facility] 01-21-2025 CNOV Office Visit (INTMWS ) TOSHA SPANN ([id number]) 1945 M Date Time Provider Department 01/21/25 9:40 AM NEVIN MARQUEZ INTMWS During your visit today, we recorded the following information about you: Pulse Respiration Blood pressure Weight 64/minute 16/minute 138/72 85 kg Nevin Marquez MD 02/03/2025 1:51 AM Signed This note was created using Ecorithmriter. Subjective Tosha Spann is a 79 year old male. Patient presents with: F/U 6 Month Art is a 79-year-old male with a history of chronic back pain, neuropathy, and impaired fasting glucose, presenting for a 6-month follow-up. Art reports ongoing chronic back pain and neuropathy. He has a scheduled injection next week, which will target a higher spinal level than previous injections. He notes persistent burning pain in his knee, which his clinician attributes to neuropathy. He monitors his blood glucose weekly, with recent readings typically around 100-105 mg/dL. However, this Monday, his blood glucose was 120 mg/dL, which he attributes to increased stress and lack of sleep due to the process of moving to a new house. He reports waking up at 0300 with thoughts about the move, but denies feeling worried. He is currently transitioning from a 3,200 sq ft house to a 1,400 sq ft house and is in the process of downsizing his belongings, including furniture, tools, and personal items. He describes the process as stressful but manageable, stating, I'm not worried, God, I started praying about this about a year ago. He is also dealing with the financial implications of owning two houses temporarily. He reports using Flonase again due to severe spring allergies, but is not using Atrovent nasal spray due to side effects of dryness. He is currently taking a half tablet of trazodone nightly, with a prescription allowing for up to one tablet. He has a supply of losartan and denies needing a refill at this time. He reports drinking a lot of coffee. PAST MEDICAL HISTORY Diagnosis Date Abnormal REM sleep REM dependent ALFONSO Arthritis BPH with obstruction/lower urinary tract symptoms CAD (coronary artery disease) Diabetes (HCC) Diarrhea 05/11/2005 Enthesopathy of hip region 05/11/2005 Esophageal reflux 05/11/2005 Hemorrhage of gastrointestinal tract, unspecified 05/11/2005 History of transfusion Pt thinks maybe w/ his open heart;He possibly had a transfusion IFG (impaired fasting glucose) Intestinal infection due to campylobacter 05/11/2005 Migraine without aura, without mention of intractable migraine without mention of status migrainosus 05/11/2005 Propranolol effective for prevention Motion sickness Nocturnal hypoxemia Diagnosed on PSG Primary hypertension 05/11/2005 PUD (peptic ulcer disease) 1968 conservative tx while in service Pure hypercholesterolemia 05/11/2005 Sciatica 05/11/2005 Sleep apnea APAP uses nightly;Pt repors he's a very sallow breather Thyroid disease Current Outpatient Medications Medication Sig amLODIPine (NORVASC) 5 mg tablet Take 1 tablet by mouth once daily. polyethylene glycol 3350 17 gram packet Take 17 g by mouth once daily. Dissolve dose in 4 - 8 ounces of liquid and take as directed. At bedtime with citracel methylcellulose, with sugar, (CITRUCEL, SUCROSE,) oral powder Take 1 scoop by mouth once daily. Along with miralax before bed propranolol ER (INDERAL LA) 120 mg 24 hr capsule Take 1 capsule by mouth once daily. omeprazole (PRILOSEC) 40 mg capsule Take 1 capsule by mouth two times a day. metFORMIN ER (GLUCOPHAGE XR) 500 mg 24 hr tablet Take 1 tablet by mouth daily with breakfast. traZODone (DESYREL) 50 mg tablet Take 0.5-1 tablets by mouth daily at bedtime. For insomnia and depression losartan (COZAAR) 50 mg tablet take 1 tablet twice daily fluticasone (FLONASE) 50 mcg/actuation nasal spray Use 2 Sprays in each nostril once daily as needed. betamethasone dipropionate, augmented (DIPROLENE) 0.05 % cream APPLY TO HANDS ONCE DAILY AT NIGHT WHEN FLARED, COVER WITH COTTON GLOVES OVERNIGHT calcium citrate/vitamin D3 (CALCIUM CITRATE + D ORAL) Take 1 tablet by mouth once daily. ibuprofen (ADVIL) 200 mg tablet Take 400 mg by mouth two times a day. Takes 3 tablets twice a day acetaminophen (TYLENOL) 325 mg cap Take 650 mg by mouth once daily. Ascorbic Acid (VITAMIN C) 1,000 mg tablet Take 1,000 mg by mouth once daily. fluticasone propionate (FLOVENT INHALATION) Inhale as instructed as needed. L.acidophilus-L.rhamnosus (PROBIOTIC) 15 billion cell capsule Take 1 capsule by mouth once daily. vitamin B complex (B COMPLEX 1 ORAL) Take 1 tablet by mouth once daily. multivitamin with minerals (DAILY MULTIVITAMIN-MINERALS) tablet Take 1 tablet by mouth once daily. melatonin 5 mg tablet Take 5 mg by mouth at bedtime as needed for insomnia. simethicone (GAS-X ORAL) Take 1 Capful by (more content not included)... Normal [facility] CK [Catalytic activity/Vol]o n 12-25-2024 Interpretation and review of laboratory results Normal [place] CREATINE KINASE/CKon 025 CK [Catalytic activity/Vol] 66 U/L 51 - 298 U/L [place] Comprehensive metabolic 2000 panelon 12-25-2024 Albumin [Mass/Vol] 5 g/dL High 3.9 - 4.9 g/dL [place] ALP [Catalytic activity/Vol] 45 U/L 38 - 113 U/L [place] ALT [Catalytic activity/Vol] 19 U/L 10 - 54 U/L [place] Anion gap [Moles/Vol] 10 mmol/L 8 - 15 mmol/L [place] AST [Catalytic activity/Vol] 15 U/L 14 - 40 U/L [place] Bilirubin [Mass/Vol] 0.2 mg/dL 0.2 - 1 .3 mg/dL [place] Calcium [Mass/Vol] 10.2 mg/dL 8.5 - 10. 2 mg/dL [place] Chloride [Moles/Vol] 100 mmol/L 98 - 10 7 mmol/L [place] CO2 [Moles/Vol] 27 mmol/L 22 - 30 mmol/L [place] Creatinine [Mass/Vol] 1.27 mg/dL High 0.73 - 1.22 mg/dL [place] GFR/1.73 sq M.predicted among non-blacks MDRD (S/P/Bld) [Vol rate/Area] 58 mL/min/{1.73_m2} Low - PINF [place] Comment on above: Estimated Glomerular Filtration Rate (eGFR) is calculated using the 2020 CKD-EPI creatinine equation. This equation utilizes serum creatinine, sex, and age as parameters. The creatinine assay has traceable calibration to isotope dilution-mass spectrometry. Refer to KDIGO guidelines for clinical interpretation. In patients with unstable renal function, e.g. those with acute kidney injury, the eGFR may not accurately reflect actual GFR. Glucose [Mass/Vol] 115 mg/dL High 74 - 99 mg/dL [place] Comment on above: The [place] Diabete s Association (ADA) provides guidance for cutoff values for fasting glucose and random glucose. The ADA defines fasting as no caloric intake for at least 8 hours. Fasting plasma glucose results between 100 to 125 mg/dL indicate increased risk for diabetes (prediabetes). Fasting plasma glucose results greater than or equal to 126 mg/dL meet the criteria for diagnosis of diabetes. In the absence of unequivocal hyperglycemia, results should be confirmed by repeat testing. In a patient with classic symptoms of hyperglycemia or hyperglycemic crisis, random plasma glucose results greater than or equal to 200 mg/dL meet the criteria for diagnosis of diabetes. Reference: Standards of Medical Care in Diabetes 2016, [place] [employer]. Diabetes Care. 2016.39(Suppl 1). Potassium [Moles/Vol] 4.9 mmol/L 3.7 - 5.1 mmol/L [place] Protein [Mass/Vol] 7.7 g/dL 6.3 - 8.0 g/dL [place] Sodium [Moles/Vol] 137 mmol/L 136 - 144 mmol/L [place] Urea nitrogen [Mass/Vol] 25 mg/dL High 9 - 24 mg/dL [place] HbA1c (Bld)on 12-25-2024 Average glucose Estimated from glycated hemoglobin (Bld) [Mass/Vol] 111 mg/dL [place] Comment on above: eAG: (Estimated aver age glucose) is a calculated value from HgbA1c and is textile machinery sales representative of the average blood glucose level in the last 2-3 month period. HbA1c (Bld) [Mass fraction] 5.5 % 4.3 - 5.6 % [place] Comment on above: [place] Diabetes As sociation guidelines indicate that patients with HgbA1c in the range 5.7-6.4% are at increased risk for development of diabetes, and intervention by lifestyle modification may be beneficial. HgbA1c greater or equal to 6.5% is considered diagnostic of diabetes. [place] MAGNESIUMon 12-25-2024 Magnesium [Mass/Vol] 2.4 mg/dL High 1.7 - 2 .3 mg/dL [place] No Panel Informationon 12-25 Interpretation and review of laboratory results Abnormal [facility] CBC W Auto Differential pane l (Bld)on 12-24-2024 Basophils (Bld) [#/Vol] 0.06 10*3/uL [facility] Basophils/100 WBC (Bld) 1 % [place] Differential cell count method Nom (Bld) Auto [place] Eosinophils (Bld) [#/Vol] 0.21 10*3/uL [facility] Eosinophils/100 WBC (Bld) 3.4 % [place] Erythrocyte distribution width (RBC) [Ratio] 12.9 % 11.5 - 15.0 % [place] Hematocrit (Bld) [Volume fraction] 39.9 % 39.0 - 51.0 % [place] Hemoglobin (Bld) [Mass/Vol] 13.6 g/dL 13.0 - 17.0 g/dL [place] Immature granulocytes (Bld) [#/Vol] 0.03 10*3/uL [facility] [place] Immature granulocytes/100 WBC (Bld) 0.5 % [place] Interpretation and review of laboratory results Abnormal [place] Lymphocytes (Bld) [#/Vol] 1.68 10*3/uL [place] Lymphocytes/100 WBC (Bld) 27.4 % [place] MCH (RBC) [Entitic mass] 31.5 pg 26.0 - 34.0 pg [place] MCHC (RBC) [Mass/Vol] 34.1 g/dL 30.5 - 36.0 g/dL [place] MCV (RBC) [Entitic vol] 92.4 fL 80.0 - 100.0 fL [place] Monocytes (Bld) [#/Vol] 0.54 10*3/uL [facility] Monocytes/100 WBC (Bld) 8.8 % [place] Neutrophils (Bld) [#/Vol] 3.62 10*3/uL [place] Neutrophils/100 WBC (Bld) 58.9 % [place] Nucleated RBC (Bld) [#/Vol] NINF [place] Nucleated RBC/100 WBC (Bld) [Ratio] 0 % /100 WBC [place] Platelet mean volume (Bld) [Entitic vol] 8.7 fL Low 9.0 - 12.7 fL [place] Platelets (Bld) [#/Vol] 315 10*3/uL [place] RBC (Bld) [#/Vol] 4.32 10*6/uL 4.20 - 6.0 0 m/uL [place] WBC (Bld) [#/Vol] 6.14 10*3/uL [facility] Basophils (Bld) [#/Vol] 0.06 10*3/uL Normal <0.11 [facility] Comment on above: Order Comment: Speci men Type: BLOOD SPECIMENOrdering Facility: [facility] Address: [address] [place] [address] Performed By: #### 5 7021-8 ####[facility] [id number] [place] [address] [place] Basophils/100 WBC (Bld) 1.0 % Normal [facility] Comment on above: Order Comment: Speci men Type: BLOOD SPECIMENOrdering Facility: [facility] Address: [address] [place] [address] Performed By: #### 5 7021-8 ####[facility] [id number] [place] [address] [place] Differential cell count method Nom (Bld) Auto Normal [facility] Comment on above: Order Comment: Speci men Type: BLOOD SPECIMENOrdering Facility: [facility] Address: [address] [place] [address] Performed By: #### 5 7021-8 ####[facility] [id number] [place] [address] [place] Eosinophils (Bld) [#/Vol] 0.21 10*3/uL Normal <0.46 [facility] Comment on above: Order Comment: Speci men Type: BLOOD SPECIMENOrdering Facility: [facility] Address: [address] [place] [address] Performed By: #### 5 7021-8 ####[facility] [id number] [facility] [place] [facility] [address], [facility]95 [place] Eosinophils/100 WBC (Bld) 3.4 % Normal [facility] Comment on above: Order Comment: Speci men Type: BLOOD SPECIMENOrdering Facility: [facility] Address: [address] [place] [address] Performed By: #### 5 7021-8 ####[facility] LABCLIA [id number] [address], [facility]95 [place] Erythrocyte distribution width (RBC) [Ratio] 12.9 % Normal 11.5-15.0 [facility] Comment on above: Order Comment: Speci men Type: BLOOD SPECIMENOrdering Facility: [facility] Address: [address] [place] [address] Performed By: #### 5 7021-8 ####[facility] LABCLIA [id number] [address], [facility]95 [place] Hematocrit (Bld) [Volume fraction] 39.9 % Normal 39.0-51.0 [facility] Comment on above: Order Comment: Speci men Type: BLOOD SPECIMENOrdering Facility: [facility] Address: [address] [place] [address] Performed By: #### 5 7021-8 ####[facility] LABCLIA [id number] [address], [facility]95 [place] Hemoglobin (Bld) [Mass/Vol] 13.6 g/dL Normal 13.0-17.0 [facility] Comment on above: Order Comment: Speci men Type: BLOOD SPECIMENOrdering Facility: [facility] Address: [address] [place] [address] Performed By: #### 5 7021-8 ####[facility] LABCLIA [id number] [place] [address] [place] Immature granulocytes (Bld) [#/Vol] 0.03 10*3/uL Normal <0.10 [facility] Comment on above: Order Comment: Speci men Type: BLOOD SPECIMENOrdering Facility: [facility] Address: [address] [place] [address] Performed By: #### 5 7021-8 ####[facility] LABCLIA [id number] [place] [address] [place] Immature granulocytes/100 WBC (Bld) 0.5 % Normal [facility] Comment on above: Order Comment: Speci men Type: BLOOD SPECIMENOrdering Facility: [facility] Address: [address] [place] [address] Performed By: #### 5 7021-8 ####[facility] LABIA [id number] [place] [address] [place] Lymphocytes (Bld) [#/Vol] 1.68 10*3/uL Normal 1.00-4.00 [facility] Comment on above: Order Comment: Speci men Type: BLOOD SPECIMENOrdering Facility: [facility] Address: [address] [place] [address] Performed By: #### 5 7021-8 ####[facility] LABCLIA [id number] [place] [address] [place] Lymphocytes/100 WBC (Bld) 27.4 % Normal [facility] Comment on above: Order Comment: Speci men Type: BLOOD SPECIMENOrdering Facility: [facility] Address: [address] [place] [address] Performed By: #### 5 7021-8 ####[facility] LABCLIA [id number] [place] [address] [place] MCH (RBC) [Entitic mass] 31.5 pg Normal 26.0-34.0 [facility] Comment on above: Order Comment: Speci men Type: BLOOD SPECIMENOrdering Facility: [facility] Address: [address] [place] [address] Performed By: #### 5 7021-8 ####[facility] LABIA [id number] [place] [address] [place] MCHC (RBC) [Mass/Vol] 34.1 g/dL Normal 30.5-36.0 [facility] Comment on above: Order Comment: Speci men Type: BLOOD SPECIMENOrdering Facility: [facility] Address: [address] [place] [address] Performed By: #### 5 7021-8 ####[facility] LABIA [id number] [place] [address] [place] MCV (RBC) [Entitic vol] 92.4 fL Normal 80.0-100.0 [facility] Comment on above: Order Comment: Speci men Type: BLOOD SPECIMENOrdering Facility: [facility] Address: [address] [place] [address] Performed By: #### 5 7021-8 ####[facility] LABIA [id number] [place] [address] [place] Monocytes (Bld) [#/Vol] 0.54 10*3/uL Normal <0.87 [facility] Comment on above: Order Comment: Speci men Type: BLOOD SPECIMENOrdering Facility: [facility] Address: [address] [place] [address] Performed By: #### 5 7021-8 ####[facility] LABIA [id number] [place] [address] [place] Monocytes/100 WBC (Bld) 8.8 % Normal [facility] Comment on above: Order Comment: Speci men Type: BLOOD SPECIMENOrdering Facility: [facility] Address: [address] [place] [address] Performed By: #### 5 7021-8 ####[facility] LABCLIA [id number] [place] [address] [place] Neutrophils (Bld) [#/Vol] 3.62 10*3/uL Normal 1.45-7.50 [facility] Comment on above: Order Comment: Speci men Type: BLOOD SPECIMENOrdering Facility: [facility] Address: [address] [place] [address] Performed By: #### 5 7021-8 ####[facility] LABCLIA [id number] [place] [address] [place] Neutrophils/100 WBC (Bld) 58.9 % Normal [facility] Comment on above: Order Comment: Speci men Type: BLOOD SPECIMENOrdering Facility: [facility] Address: [address] [place] [address] Performed By: #### 5 7021-8 ####[facility] LABCLIA [id number] [address], [place] [address] [place] Nucleated RBC (Bld) [#/Vol] 10*3/uL Normal <0.01 [facility] Comment on above: Order Comment: Speci men Type: BLOOD SPECIMENOrdering Facility: [facility] Address: [address] [place] [address] Performed By: #### 5 7021-8 ####[facility] LABCLIA [id number] [place] [id number] [place] Nucleated RBC/100 WBC (Bld) [Ratio] 0.0 /100 WBC Normal [facility] Comment on above: Order Comment: Speci men Type: BLOOD SPECIMENOrdering Facility: [facility] Address: [address] [place] [address] Performed By: #### 5 7021-8 ####[facility] LABCLIA [id number] [place] [id number] [place] Platelet mean volume (Bld) [Entitic vol] 8.7 fL Low 9.0-12.7 [facility] Comment on above: Order Comment: Speci men Type: BLOOD SPECIMENOrdering Facility: [facility] Address: [address] [place] [address] Performed By: #### 5 7021-8 ####[facility] LABIA [id number] [place] [address] [place] Platelets (Bld) [#/Vol] 315 10*3/uL Normal 150-400 [facility] Comment on above: Order Comment: Speci men Type: BLOOD SPECIMENOrdering Facility: [facility] Address: [address] [place] [address] Performed By: #### 5 7021-8 ####[facility] LABIA [id number] [place] [address] [place] RBC (Bld) [#/Vol] 4.32 10*6/uL Normal 4.20-6.00 [facility] Comment on above: Order Comment: Speci men Type: BLOOD SPECIMENOrdering Facility: [facility] Address: [address] [place] [address] Performed By: #### 5 7021-8 ####[facility] LABIA [id number] [place] [address] [place] WBC (Bld) [#/Vol] 6.14 10*3/uL Normal 3.70-11.00 [facility] Comment on above: Order Comment: Speci men Type: BLOOD SPECIMENOrdering Facility: [facility] Address: [address] [place] [address] Performed By: #### 5 7021-8 ####[facility] LABIA [id number] [place] [id number] [place] CK SerPl-cCncon 12-24-2024 CK [Catalytic activity/Vol] 66 U/L Normal 51-298 [facility] Comment on above: Order Comment: Speci men Type: BLOOD SPECIMENOrdering Facility: [facility] Address: [address] [place] [address] Performed By: #### 2 157-6, 34195-0, 06672-5 ####[facility] LABCLIA [id number] REGINO RITTER [id number] [place] [address] OF [facility] CNOVon 12-24-2024 CNOV Office Visit (INTMWS ) TOSHA SPANN ([id number]) 1945 M Date Time Provider Department 12/24/24 3:20 PM NEVIN MARQUEZ INTMWS During your visit today, we recorded the following information about you: Pulse Respiration Blood pressure Weight 72/minute 16/minute 120/60 78.5 kg Nevin Marquez MD 12/27/2024 8:46 PM Signed This note was created using Ecorithmriter. Subjective Tosha Spann is a 79 year old male. Patient presents with: severe cramping in flynn legs , states this happened a few d: Stopped the simvastain and using electrolytes and still having cramping. Hong is a 79-year-old male with a history of hypercholesterolemia, presenting with worsening nocturnal leg cramps. Hong reports a longstanding history of nocturnal leg cramps, which have recently worsened in severity and frequency. He describes the cramps as so severe that he is unable to stand or put weight on his legs when they occur. The cramps are primarily located in the inner thighs and calves, and can affect one or both legs simultaneously. He notes a sensation of his leg deflating and moving after the cramp subsides. He also reports a constant jittery movement or twitching of his legs, which he can control temporarily but recurs when he stops consciously suppressing it. He denies any other muscle involvement outside of his legs. Hong has a history of hypercholesterolemia and has been on various statins for years, most recently simvastatin, which was reduced to once a week by his previous physician, Dr. Peck, due to concerns that it might be contributing to the leg cramps. He stopped taking simvastatin completely 2 weeks ago, but reports that the cramps have not improved and have actually worsened. He has tried various interventions to alleviate the cramps, including taking electrolyte supplements containing potassium, sodium, and magnesium, which seemed to help during the summer but are no longer effective. He has also tried topical treatments like TheraWorks and stretching exercises before bed, including deep knee bends, but these have not provided relief. He has a history of taking magnesium and zinc supplements in the past, which caused gastrointestinal upset. Hong also reports a history of alternating constipation and diarrhea, for which he is currently taking a regimen of Miralax and Citrucel as prescribed by Dr. Mak. He notes that his bowel movements are regular, but some days are more active than others, which he attributes to dietary choices such as eating refried beans. He mentions that he is in the process of buying a new house and downsizing from his current home, which he finds stressful but does not believe is contributing to his leg cramps. He reports that his sleep is disrupted by the leg cramps, but he is able to fall asleep quickly and does not wake up to urinate. PAST MEDICAL HISTORY Diagnosis Date Abnormal REM sleep REM dependent ALFONSO Arthritis BPH with obstruction/lower urinary tract symptoms CAD (coronary artery disease) Diabetes (HCC) Diarrhea 05/11/2005 Enthesopathy of hip region 05/11/2005 Esophageal reflux 05/11/2005 Hemorrhage of gastrointestinal tract, unspecified 05/11/2005 History of transfusion Pt thinks maybe w/ his open heart;He possibly had a transfusion IFG (impaired fasting glucose) Intestinal infection due to campylobacter 05/11/2005 Migraine without aura, without mention of intractable migraine without mention of status migrainosus 05/11/2005 Propranolol effective for prevention Motion sickness Nocturnal hypoxemia Diagnosed on PSG Primary hypertension 05/11/2005 PUD (peptic ulcer disease) 1968 conservative tx while in service Pure hypercholesterolemia 05/11/2005 Sciatica 05/11/2005 Sleep apnea APAP uses nightly;Pt repors he's a very sallow breather Thyroid disease Current Outpatient Medications Medication Sig propranolol ER (INDERAL LA) 120 mg 24 hr capsule Take 1 capsule by mouth once daily. omeprazole (PRILOSEC) 40 mg capsule Take 1 capsule by mouth two times a day. metFORMIN ER (GLUCOPHAGE XR) 500 mg 24 hr tablet Take 1 tablet by mouth daily with breakfast. traZODone (DESYREL) 50 mg tablet Take 0.5-1 tablets by mouth daily at bedtime. For insomnia and depression losartan (COZAAR) 50 mg tablet take 1 tablet twice daily amLODIPine (NORVASC) 5 mg tablet Take 1 tablet by mouth once daily. betamethasone dipropionate, augmented (DIPROLENE) 0.05 % cream APPLY TO HANDS ONCE DAILY AT NIGHT WHEN FLARED, COVER WITH COTTON GLOVES OVERNIGHT calcium citrate/vitamin D3 (CALCIUM CITRATE + D ORAL) Take 1 tablet by mouth once daily. ibuprofen (ADVIL) 200 mg tablet Take 400 mg by mouth two times a day. Takes 3 tablets twice a day acetaminophen (TYLENOL) 325 mg cap Take 650 mg by mouth once daily. Ascorbic Acid (VITAMIN C) 1,000 mg tablet Take 1,000 mg (more content not included)... Normal [facility] Comprehensive metabolic 2000 panelon 12-24-2024 Albumin [Mass/Vol] 5.0 g/dL High 3.9-4.9 [facility] Comment on above: Order Comment: Speci men Type: BLOOD SPECIMENOrdering Facility: [facility] Address: [address] [place] [address] Performed By: #### 2 157-6, , ####[facility] LABCLIA [id number] [place] [address] [place] ALP [Catalytic activity/Vol] 45 U/L Normal 38-113 [facility] Comment on above: Order Comment: Speci men Type: BLOOD SPECIMENOrdering Facility: [facility] Address: [address] [place] [address] Performed By: #### 2 157-6, 48001-7, ####[facility] LABCLIA [id number] [place] [address] [place] ALT [Catalytic activity/Vol] 19 U/L Normal 10-54 [facility] Comment on above: Order Comment: Speci men Type: BLOOD SPECIMENOrdering Facility: [facility] Address: [address] [place] [address] Performed By: #### 2 157-6, , ####[facility] LABCLIA [id number] [facility] [address] [address] [place] Anion gap [Moles/Vol] 10 mmol/L Normal 8-15 [facility] Comment on above: Order Comment: Speci men Type: BLOOD SPECIMENOrdering Facility: [facility] Address: [address] [place] [address] Performed By: #### 2 157-6, , ####[facility] LABCLIA [id number] [place] [address] [place] AST [Catalytic activity/Vol] 15 U/L Normal 14-40 [facility] Comment on above: Order Comment: Speci men Type: BLOOD SPECIMENOrdering Facility: [facility] Address: [address] [place] [address] Performed By: #### 2 157-6, , ####[facility] LABCLIA [id number] [facility] [address] [address] [place] Bilirubin [Mass/Vol] 0.2 mg/dL Normal 0.2-1.3 [facility] Comment on above: Order Comment: Speci men Type: BLOOD SPECIMENOrdering Facility: [facility] Address: [address] [place] [address] Performed By: #### 2 157-6, , ####[facility] LABCLIA [id number] [facility] [address] [place] [address] [place] Calcium [Mass/Vol] 10.2 mg/dL Normal 8.5-10.2 [facility] Comment on above: Order Comment: Speci men Type: BLOOD SPECIMENOrdering Facility: [facility] Address: [address] [place] [address] Performed By: #### 2 157-6, , ####[facility] LABCLIA [id number] [address] [address] [place] Chloride [Moles/Vol] 100 mmol/L Normal 98-107 [facility] Comment on above: Order Comment: Speci men Type: BLOOD SPECIMENOrdering Facility: [facility] Address: [address] [place] [address] Performed By: #### 2 157-6, , ####[facility] LABCLIA [id number] [place] [id number] [place] CO2 [Moles/Vol] 27 mmol/L Normal 22-30 [facility] Comment on above: Order Comment: Speci men Type: BLOOD SPECIMENOrdering Facility: [facility] Address: [address] [place] [address] Performed By: #### 2 157-6, , ####[facility] LABIA [id number] [place] [id number] [place] Creatinine [Mass/Vol] 1.27 mg/dL High 0.73-1.22 [facility] Comment on above: Order Comment: Speci men Type: BLOOD SPECIMENOrdering Facility: [facility] Address: [address] [place] [address] Performed By: #### 2 157-6, , 77348-3 ####[facility] LABIA [id number] [place] [id number] [place] Creatinine and Glomerular filtration rate.predicted panel (S/P/Bld) 58 mL/min/1.73m??? Low >=60 [facility] Comment on above: Order Comment: Speci men Type: BLOOD SPECIMENOrdering Facility: [facility] Address: [address] [place] [id number] Result Comment: Maria Elena mated Glomerular Filtration Rate (eGFR) is calculated using the 2020 CKD-EPI creatinine equation. This equation utilizes serum creatinine, sex, and age as parameters. The creatinine assay has traceable calibration to isotope dilution-mass spectrometry. Refer to KDIGO guidelines for clinical interpretation. In patients with unstable renal function, e.g. those with acute kidney injury, the eGFR may not accurately reflect actual GFR. Performed By: #### 2 157-6, 77009-7, ####[facility] LABCLIA [id number] [address] [address] [place] Glucose [Mass/Vol] 115 mg/dL High 74-99 [facility] Comment on above: Order Comment: Specantonella men Type: BLOOD SPECIMENOrdering Facility: [facility] Address: [address] [place] [address] Result Comment: The [place] Diabetes Association (ADA) provides guidance for cutoff values for fasting glucose and random glucose. The ADA defines fasting as no caloric intake for at least 8 hours. Fasting plasma glucose results between 100 to 125 mg/dL indicate increased risk for diabetes (prediabetes). Fasting plasma glucose results greater than or equal to 126 mg/dL meet the criteria for diagnosis of diabetes. In the absence of unequivocal hyperglycemia, results should be confirmed by repeat testing. In a patient with classic symptoms of hyperglycemia or hyperglycemic crisis, random plasma glucose results greater than or equal to 200 mg/dL meet the criteria for diagnosis of diabetes. Reference: Standards of Medical Care in Diabetes 2016, [place] Diabetes Association. Diabetes Care. 2016.39(Suppl 1). Performed By: #### 2 157-6, 34486-4, ####[facility] LABCLIA [id number] [address] [address] [place] Potassium [Moles/Vol] 4.9 mmol/L Normal 3.7-5.1 [facility] Comment on above: Order Comment: Speci men Type: BLOOD SPECIMENOrdering Facility: [facility] Address: [address] [place] [id number] Performed By: #### 2 157-6, 19961-6, 10825-8 ####[facility] LABIA [id number] [address] [address] [place] Protein [Mass/Vol] 7.7 g/dL Normal 6.3-8.0 [facility] Comment on above: Order Comment: Speci men Type: BLOOD SPECIMENOrdering Facility: [facility] Address: [address] [place] [address] Performed By: #### 2 157-6, 77042-3, 82941-8 ####[facility] LABIA [id number] [place] [id number] [place] Sodium [Moles/Vol] 137 mmol/L Normal 136-144 [facility] Comment on above: Order Comment: Speci men Type: BLOOD SPECIMENOrdering Facility: [facility] Address: [address] [place] [address] Performed By: #### 2 157-6, , 84534-6 ####[facility] [id number] [place] [id number] [place] Urea nitrogen [Mass/Vol] 25 mg/dL High 9-24 [facility] Comment on above: Order Comment: Speci men Type: BLOOD SPECIMENOrdering Facility: [facility] Address: [address] [place] [address] Performed By: #### 2 157-6, , 43369-0 ####[facility] [id number] [address] [address] [place] HbA1c (Bld)on 12-24-2024 Average glucose Estimated from glycated hemoglobin (Bld) [Mass/Vol] 111 mg/dL Normal [facility] Comment on above: Order Comment: Speci men Type: BLOOD SPECIMENOrdering Facility: [facility] Address: [address] [place] [address] Result Comment: eAG: (Estimated average glucose) is a calculated value from HgbA1c and is textile machinery sales representative of the average blood glucose level in the last 2-3 month period. Performed By: #### 5 5454-3 ####[facility] LABIA [id number] [place] [address] [place] HbA1c (Bld) [Mass fraction] 5.5 % Normal 4.3-5.6 [facility] Comment on above: Order Comment: Alejandro ott Type: BLOOD SPECIMENOrdering Facility: [facility] Address: [address] [place] [address] Result Comment: Amer [place] Diabetes Association guidelines indicate that patients with HgbA1c in the range 5.7-6.4% are at increased risk for development of diabetes, and intervention by lifestyle modification may be beneficial. HgbA1c greater or equal to 6.5% is considered diagnostic of diabetes. Performed By: #### 5 5454-3 ####[facility] LABIA [id number] [address] [place] Magnesium SerPl-mCncon 12-24 Magnesium [Mass/Vol] 2.4 mg/dL High 1.7-2.3 [facility] Comment on above: Order Comment: Alejandro ott Type: BLOOD SPECIMENOrdering Facility: [facility] Address: [address] [place] [address] Performed By: #### 2 157-6, 78197-4, 67206-9 ####[facility] [id number] [address] [place] CNPNon 12-20-2024 CNPN Telephone (INTMWS) TOSHA SPANN ([id number]) 1945 M Date Time Provider Department 12/20/24 NEVIN MARQUEZ INTMWS During your visit today, we recorded the following information about you: Daniela Alejandro LPN 12/20/2024 10:53 AM Signed Patient calling asking for new order for CPAP supplies to be sent to [facility]. His current rx expires on 01/07/2025. He said he gets nasal pillows monthly and head gear every 6 months. His last sleep study was done 08/18/2022. Patient thought he mentioned to PCP at his last visit, needing order. Pending order, fax to [facility] at [phone]. Please advise Sharad Brennan APRN.STAFF PSYCHOLOGIST 12/20/2024 2:21 PM Signed OK rGecia Rea LPN 12/20/2024 2:44 PM Signed Order has been faxed to [facility] at number below as requested. Nevin Marquez MD 12/24/2024 4:44 PM Signed Patient states that [facility] did not get order. Fax again--I fixed the CMN part of this order Nevin Marquez MD 12/24/2024 4:44 PM Signed Addended by: NEVIN MARQUEZ on: 12/24/2024 04:44 PM Modules accepted: Orders Allergies As of Date: 12/20/2024 Noted Allergy Reaction FLOMAX (TAMSULOSIN HCL) 06/10/2011 4 - Hives PERCOCET (OXYCODONE-ACETAMINOPHEN) 8 - GI Upset Comments: Pt gets severe Nausea;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 BARIUM SULFATE 03/16/2015 4 - Hives 9 - Itching Comments: Pt has had barium multiple times in the past with no reaction. Only reaction one time CARAFATE (SUCRALFATE) 04/23/2015 8 - GI Upset Comments: worsening of chest pain and IBS symptoms PENICILLINS 05/11/2005 Comments: unknown -childhood ERYTHROMYCIN 05/11/2005 8 - GI Upset Comments: only PO is problematic Date Reviewed: 10/22/2024 Reviewed by: Anna Gupta O[facility] - Fully Assessed Reason for Visit: new order needed for CPAP supplies [Other] Primary Visit Diagnosis:ALFONSO (obstructive sleep apnea) [G47.33] Order(s):CPAP DEVICE, WITH HUMIDIFIER [[id number]] Order #: [id number] Prescriptions as of 12/24/2024 - polyethylene glycol 3350 17 gram packet Take 17 g by mouth once daily. Dissolve dose in 4 - 8 ounces of liquid and take as directed. At bedtime with citracel - methylcellulose, with sugar, (CITRUCEL, SUCROSE,) oral powder Take 1 scoop by mouth once daily. Along with miralax before bed - mupirocin (BACTROBAN) 2 % ointment Apply 1 application to affected area three times a day. In each nostril - propranolol ER (INDERAL LA) 120 mg 24 hr capsule Take 1 capsule by mouth once daily. - omeprazole (PRILOSEC) 40 mg capsule Take 1 capsule by mouth two times a day. - metFORMIN ER (GLUCOPHAGE XR) 500 mg 24 hr tablet Take 1 tablet by mouth daily with breakfast. - traZODone (DESYREL) 50 mg tablet Take 0.5-1 tablets by mouth daily at bedtime. For insomnia and depression - losartan (COZAAR) 50 mg tablet take 1 tablet twice daily - amLODIPine (NORVASC) 5 mg tablet Take 1 tablet by mouth once daily. - fluticasone (FLONASE) 50 mcg/actuation nasal spray Use 2 Sprays in each nostril once daily as needed. - ipratropium bromide (ATROVENT) 42 mcg (0.06 %) nasal spray Use 2 Sprays in the nose daily at bedtime. - betamethasone dipropionate, augmented (DIPROLENE) 0.05 % cream APPLY TO HANDS ONCE DAILY AT NIGHT WHEN FLARED, COVER WITH COTTON GLOVES OVERNIGHT - calcium citrate/vitamin D3 (CALCIUM CITRATE + D ORAL) Take 1 tablet by mouth once daily. - ibuprofen (ADVIL) 200 mg tablet Take 400 mg by mouth two times a day. Takes 3 tablets twice a day - acetaminophen (TYLENOL) 325 mg cap Take 650 mg by mouth once daily. - Ascorbic Acid (VITAMIN C) 1,000 mg tablet Take 1,000 mg by mouth once daily. - fluticasone propionate (FLOVENT INHALATION) Inhale as instructed as needed. - loratadine (CLARITIN) 10 mg tablet Take 10 mg by mouth once daily. - L.acidophilus-L.rhamnosus (PROBIOTIC) 15 billion cell capsule Take 1 capsule by mouth once daily. - vitamin B complex (B COMPLEX 1 ORAL) Take 1 tablet by mouth once daily. - multivitamin with minerals (DAILY MULTIVITAMIN-MINERALS) tablet Take 1 tablet by mouth once daily. - melatonin 5 mg tablet Take 5 mg by mouth at bedtime as needed for insomnia. - simethicone (GAS-X ORAL) Take 1 Capful by mouth once daily. - dicyclomine (BENTYL) 20 mg tablet Take 1 tablet by mouth once daily. - ondansetron (ZOFRAN) 4 mg tablet Take 1 tablet by mouth every 8 hours as needed for nausea/vomiting. - Blood-Glucose Meter 1 Device as directed. Test Three times a day. Before breakfast, lunch and before bedtime. - Blood Glucose Control, Normal soln 1 Ampule as directed. - blood sugar diagnostic test strip Use with blood glucose test 3 times daily, Insulin Dep? No - Lancets lancets Use with blood glucose test 3 times daily. Insulin Dep? No - alcohol swabs Use with blood glucose test 3 times daily. Insulin Dep? N (more content not included)... Normal [facility] HIP, UNI W/ Pelvis 2-3 Views on 11-12-2024 HIP, UNI W/ Pelvis 2-3 Views [facility] Imaging Services [address] [place], [place] [id number] HIP, UNI W/ Pelvis 2-3 Views MR#: [id number] Acct: [id number] Name: TOSHA SPANN Rep #: [id number] : 1945 79 From: Loki Maddox i DO PCP: Dr. Nevin Marquez MD Status: REG CLI Study: HIP, UNI W/ Pelvis 2-3 Views Date of Exam: Exam# [id number] Ordering Dr: Ludwig Sweeney MD PROCEDURE: Pelvis and right hip radiographs, three views REASON FOR EXAM: Groin pain TECHNIQUE: Three views of the pelvis and right hip were obtained. COMPARISON: None. FINDINGS: Three views of the pelvis and right hip were obtained. Bones are osteopenic. Degenerative changes in the lower lumbar spine. An electronic probable spinal stimulator battery pack projects over the mid left hemipelvis. No displaced pelvic fracture. Mild degenerative changes in the hip joints. Proximal femurs intact. No acute fracture or dislocation of the right hip. RAD/HIP, UNI W/ Pelvis 2-3 Views IMPRESSION: Osteopenia. No acute bony abnormality of the pelvis/right hip. Mild degenerative changes in the hip joints. [facility] CC: Dr. Ludwig Sweeney MD; Dr. Nevin Marquez MD Physicist Nuclear: Signed Normal [facility] Thoracic Spine 2 Viewson Thoracic Spine 2 Views [facility] [address] [place] [id number] Thoracic Spine 2 Views MR#: [id number] Acct: [id number] Name: TOSHA SPANN Rep #: [id number] : 1945 79 From: Loki Maddox i DO PCP: Dr. Nevin Marquez MD Status: REG CLI Study: Thoracic Spine 2 Views Date of Exam: 11/12/24 Exam# [id number] Ordering Dr: Ludwig Sweeney MD PROCEDURE: Thoracic spine radiographs, two views REASON FOR EXAM: Evaluate SCS leads. TECHNIQUE: Two views of the thoracic spine were obtained. COMPARISON: None. FINDINGS: AP and lateral thoracic spine radiographs were obtained. The patient is rotated to the left on the AP view. Sternotomy wires are present. Bones are osteopenic. No focal subluxation of the thoracic spine. Moderate multilevel degenerative disc disease is present. Mild height loss of a few lower thoracic vertebral bodies, age-indeterminate. The grossly intact spinal stimulator leads project over the posterior aspect midthoracic spinal canal. RAD/Thoracic Spine 2 Views IMPRESSION: Osteopenia. Moderate multilevel degenerative disc disease in the thoracic spine. Mild age-indeterminate height loss of a few mid to lower thoracic vertebral bodies. Grossly intact spinal stimulator leads project over the posterior aspect mid thoracic spinal canal. Reading Location: [facility] CC: Dr. Ludwig Sweeney MD; Dr. Nevin Marquez MD Physicist Nuclear: Signed Normal [facility] Gastroenterology Visit Repor ton 11-05-2024 Gastroenterology Visit Report [facility] Gastroenterology [address] [place] [address] OFFICE VISIT Date of Service: 11/05/24 MR#: [id number] Acct: [id number] Name: TOSHA SPANN Rep #: [id number] : 1945 Provider: Louis Mak DO Age/Sex: 79/M Location: [facility] Status: Signed Intake Vital Signs 06/03/23 09:46 Height 5 ft 9 in Intake Visit Reasons: 6 M FU Allergies barium iodide Allergy (Verified 11/06/23 13:25) Hives Penicillins (PCN) Allergy (Verified 11/06/23 13:25) Unknown tamsulosin (From Flomax) Allergy (Verified 11/06/23 13:25) Hives Medications ???Medication ???Instructions ???Recorded ???Confirmed ???Type promethazine 25 mg tablet 25 mg PO Q8H PRN PRN Nausea #10 11/05/24 Rx tabs Omeprazole [Prilosec] 40 mg PO BID 06/22/16 11/05/24 His tory losartan 50 mg tablet 25 mg PO BID 06/22/16 11/05/24 His tory propranolol 120 mg capsule,24 120 mg PO DAILY 06/22/16 11/05/24 History hr,extended release rosuvastatin 10 mg tablet 20 mg PO QHS 06/22/16 11/05/24 His tory calcium 500 mg-vitamin D3 1,000 1 ea PO DAILY 03/07/17 11/05/24 Hi story unit-vitamin K 40 mcg chewable tablet (Citracal-D3 Soft Chew) ascorbic acid (vitamin C) 1,000 mg 1,000 mg PO DAILY 09/21/1811/05 History tablet (Vitamin C) cholecalciferol (vitamin D3) 50 1,000 unit PO BID 09/21/18 5 History mcg (2,000 unit) capsule (Vitamin D3) fluticasone propionate 110 1 - 2 puff inhalation PRN PRN 01/07 11/05/25 History mcg/actuation HFA aerosol inhaler ASTHMA (Flovent HFA) fluticasone propionate 50 2 spray intranasal DAILY 09/21/21 11/05/24 History mcg/actuation nasal spray,suspension ipratropium 20 mcg-albuterol 100 1 - 2 puff inhalation PRN PRN /0 01/0711/05/24 History mcg/actuation mist for inhalation ASTHMA (Combivent Respimat) trazodone 50 mg tablet 25 mg PO QHS 09/21/21 11/05/24 His tory docusate sodium 100 mg capsule 100 mg PO DAILY 10/18/21 11/05/24 History (Colace) lamotrigine 25 mg tablet (Lamictal) 100 mg PO QHS 10/18/21 11/05/24 History aspirin 81 mg tablet 81 mg PO DAILY 12/27/21 11/05/24 H istory melatonin 3 mg tablet (Melatin) 3 mg PO QHS 12/27/21 11/05/24 Hist ory metformin 500 mg tablet 500 mg PO DAILY 12/27/21 11/05/24 History Lactobacillus acidophilus 250 1,000 mmu cells PO BID 02/28/22 History million cell capsule (Probiotic Acidophilus) acetaminophen 325 mg tablet 1,300 mg PO QHS 02/28/22 11/05/24 History (Tylenol) loratadine 10 mg capsule 10 mg PO DAILY PRN ALLERGIES 02/2811/05/24 History mineral oil 15 ml PO MOWEFR 02/28/22 11/05/24 History simethicone 125 mg capsule (Gas-X 125 mg PO DAILY 02/28/22 11/05/24 History Extra Strength) vitamin B complex 1 cap PO DAILY 02/28/22 11/05/24 H istory meclizine 50 mg tablet (Antivert) 50 mg PO BID PRN vertigo 9 days 1 11/05/24 Rx #14 tabs diphenhydramine HCl 25 mg capsule 50 mg (2 x 25 mg) PO QHS #4 caps 11/15/23 11/05/24 Rx (Benadryl) dicyclomine 20 mg tablet 20 mg PO QHS #90 TABLETS 04/29/24 11/05/24 Rx Have you fallen in the past year?: No PFSH Medical History Anxiety Arthritis Cardiology follow-up encounter Cold induced bronchospasm CPAP (continuous positive airway pressure) dependence Depression Diabetes Dietary restriction Difficulty swallowing Enlarged prostate Former smoker GERD (gastroesophageal reflux disease) Heartburn High cholesterol History of echocardiogram History of GI bleed History of hiatal hernia History of steroid therapy History of stress test History of ulceration Hypertension IBS (irritable bowel syndrome) Injury of back Injury of head and neck Leg cramps Migraine headache Plantar fasciitis Sleep apnea Thyroid disease Wears glasses Wears hearing aid Surgical History History of cardiac catheterization History of esophagogastroduodenoscopy (EGD) History of Brad fundoplication History of surgery Hx laparoscopic cholecystectomy Hx of appendectomy Hx of bilateral cataract extraction Hx of colonoscopy Hx of foot surgery Hx of hemorrhoidectomy Hx of inguinal hernia surgery Hx of parotidectomy Hx of rotator cuff surgery Hx of shoulder surgery S/P CABG x 3 Social History Smoking Status: Former smoker alcohol intake: current substance use type: does not use seatbelt use: always do you feel safe at home: Yes HPI HPI Details: TOSHA SPANN, is a 79 M who presents to the office today for follow up. PMH abnormal REM sleep, esophageal reflux, hemorrhage of GI tract, intestinal (more content not included)... Normal [facility] Nasopharyngeal Cultureon NAC No Haemophilus, Streptococcus pneumoniae, beta-hemolytic Streptococcus or Staphylococcus aureus isolated. Normal [facility] Comment on above: Performed By: #### M 100.1999, M100.2500 #### [facility] Laboratory [address] [place], [place], [id number] Gram Stainon 10-29-2024 GS Positive Normal [facility] Comment on above: Performed By: #### M 100.1999, M100.2500 #### [facility] [address] [place], [place], [id number] Gram stainOrdered By: Abdiel Barber on 10-28-2024 Microscopic observation Gram stain Nom (Unsp spec) [facility] Nasopharyngeal cultureOrdere d By: Cecil Barber on 10-28-2024 Nasopharyngeal Culture [facility] CNOVon 10-22-2024 CNOV Office Visit (VASSWS ) TOSHA SPANN ([id number]) 1945 M Date Time Provider Department 10/22/24 9:00 AM LINN THOMAS VASSWS During your visit today, we recorded the following information about you: Pulse Blood pressure 66/minute 153/87 Linn Thomas, DO 10/22/2024 9:51 AM Signed [facility] DEPARTMENT OF VASCULAR SURGERY OUTPATIENT VISIT DATE October 22, 2024 OUTPATIENT VISIT TYPE ESTABLISHED SERVICE DATE: 10/22/2024 SERVICE TIME: 9:23 AM PRIMARY CARE PHYSICIAN: Nevin Marquez MD HISTORY OF PRESENT ILLNESS: Mr. Spann is a 79 year old male who presents today for a vascular surgery follow-up visit for vascular lab testing. He recently had his spinal stimulator adjusted however continues to have significant pain. He does report lower extremity and hand cramping PAST MEDICAL HISTORY Diagnosis Date Abnormal REM sleep REM dependent ALFONSO Arthritis BPH with obstruction/lower urinary tract symptoms CAD (coronary artery disease) Diabetes (HCC) Diarrhea 05/11/2005 Enthesopathy of hip region 05/11/2005 Esophageal reflux 05/11/2005 Hemorrhage of gastrointestinal tract, unspecified 05/11/2005 History of transfusion Pt thinks maybe w/ his open heart;He possibly had a transfusion IFG (impaired fasting glucose) Intestinal infection due to campylobacter 05/11/2005 Migraine without aura, without mention of intractable migraine without mention of status migrainosus 05/11/2005 Propranolol effective for prevention Motion sickness Nocturnal hypoxemia Diagnosed on PSG Primary hypertension 05/11/2005 PUD (peptic ulcer disease) 1968 conservative tx while in service Pure hypercholesterolemia 05/11/2005 Sciatica 05/11/2005 Sleep apnea APAP uses nightly;Pt repors he's a very sallow breather Thyroid disease PAST SURGICAL HISTORY Procedure Laterality Date APPENDECTOMY CABG (3) VEIN GRAFTS AND ARTERIAL GRAFT(S) 10/25/2021 CHOLECYSTECTOMY COLONOSCOPY FLX DX W/COLLJ SPEC WHEN PFRMD 01/29/2001 Colonoscopy COLONOSCOPY FLX DX W/COLLJ SPEC WHEN PFRMD 03/26/2018 Colonoscopy COLONOSCOPY W/BIOPSY SINGLE/MULTIPLE 05/16/2008 ESOPHAGOGASTRODUODENOSCOPY TRANSORAL DIAGNOSTIC 03/26/2018 EGD ESOPHAGOSCOPY FLEX BALLOON DILAT <30 MM DIAM 04/12/2006 Esophageal dilatation PAST SURGICAL HISTORY OF 1999 hemorrhoidectomy PAST SURGICAL HISTORY OF left footsurgery PAST SURGICAL HISTORY OF 1990 Brad fundoplication PAST SURGICAL HISTORY OF 10/2006 re-do fundoplication Dr Felix PAST SURGICAL HISTORY OF 03/07/2022 Spinal cord stimulator placement RPR 1ST INGUN HRNA AGE 7 YRS/> REDUCIBLE age 17 Hernia repair, inguinal, left SOCIAL HISTORY Social History Tobacco Use Smoking status: Former Current packs/day: 0.00 Average packs/day: 1.5 packs/day for 6.0 years (9.0 ttl pk-yrs) Types: Cigarettes Start date: 09/18/1964 Quit date: 09/18/1970 Years since quittin.1 Passive exposure: Never Smokeless tobacco: Never Vaping Use Vaping status: Never Used Substance Use Topics Alcohol use: Not Currently Comment: rarely Drug use: No MEDICATIONS: mupirocin (BACTROBAN) 2 % ointment Apply 1 application to affected area three times a day. In each nostril propranolol ER (INDERAL LA) 120 mg 24 hr capsule Take 1 capsule by mouth once daily. omeprazole (PRILOSEC) 40 mg capsule Take 1 capsule by mouth two times a day. metFORMIN ER (GLUCOPHAGE XR) 500 mg 24 hr tablet Take 1 tablet by mouth daily with breakfast. traZODone (DESYREL) 50 mg tablet Take 0.5-1 tablets by mouth daily at bedtime. For insomnia and depression losartan (COZAAR) 50 mg tablet take 1 tablet twice daily amLODIPine (NORVASC) 5 mg tablet Take 1 tablet by mouth once daily. fluticasone (FLONASE) 50 mcg/actuation nasal spray Use 2 Sprays in each nostril once daily as needed. betamethasone dipropionate, augmented (DIPROLENE) 0.05 % cream APPLY TO HANDS ONCE DAILY AT NIGHT WHEN FLARED, COVER WITH COTTON GLOVES OVERNIGHT calcium citrate/vitamin D3 (CALCIUM CITRATE + D ORAL) Take 1 tablet by mouth once daily. acetaminophen (TYLENOL) 325 mg cap Take 650 mg by mouth once daily. Ascorbic Acid (VITAMIN C) 1,000 mg tablet Take 1,000 mg by mouth once daily. fluticasone propionate (FLOVENT INHALATION) Inhale as instructed as needed. loratadine (CLARITIN) 10 mg tablet Take 10 mg by mouth once daily. L.acidophilus-L.rhamnosus (PROBIOTIC) 15 billion cell capsule Take 1 capsule by mouth once daily. vitamin B complex (B COMPLEX 1 ORAL) Take 1 tablet by mouth once daily. multivitamin with minerals (DAILY MULTIVITAMIN-MINERALS) tablet Take 1 tablet by mouth once daily. melatonin 5 mg tablet Take 5 mg by mouth at bedtime as needed for insomnia. simethicone (GAS-X ORAL) Take 1 Capful by mouth once daily. dicyclomine (BENTYL) 20 mg tablet Take 1 tablet by mouth once daily. ondansetron (more content not included)... Normal [facility] PVR ANK/BLAIR/TOE [facility] on 10-16-2024 PVR ANK/BLAIR/TOE [facility] Non-Invasive Vascular Laboratory [facility] Lower Extremity Arterial Physiology Study Bilateral/Complete Date of service/time: 10/16/2024 8:57:17 AM Name: MR. TOSHA SPANN Date of : 1945 Age: 79 years Gender: M Clinical Indication Claudication. TECHNIQUE -------- An arterial physiological examination was performed, including measurement of blood pressures using continuous wave Doppler and recording of plethysmographic with or without Doppler waveforms at the below-mentioned limb segments. FINDINGS -------- RIGHT SIDE AT REST Right Doppler Waveforms Dorsalis pedis: Multiphasic. Post tibial: Multiphasic. Right Pressures Brachial: 145 mmHg Ankle dorsalis pedis: 185 mmHg RODO: 1.19 Ankle posterior tibial: 179 mmHg RODO: 1.15 Digit: 170 mmHg Right PVR Waveforms Ankle: Normal. Transmetatarsal: Normal. Digit: Normal. LEFT SIDE AT REST Left Doppler Waveforms Dorsalis pedis: Multiphasic. Post tibial: Multiphasic. Left Pressures Brachial: 155 mmHg Ankle dorsalis pedis: 180 mmHg RODO: 1.16 Ankle posterior tibial: 174 mmHg RODO: 1.12 Digit: 172 mmHg Left PVR Waveforms Ankle: Normal. Transmetatarsal: Normal. Digit: Normal. POST EXERCISE Toe raises. Onset of claudication: 0 min 0 sec Maximal walking time: 5 min 0 sec No symptoms with exercise. Reason test was terminated: end of protocol. Post Exercise: Immediate Right Pressures and Waveform Ankle: 190 mmHg RODO: 1.15 Ankle waveform: Normal. Left Pressures and Waveform Brachial: 165 mmHg Ankle: 187 mmHg RODO: 1.13 Ankle waveform: Normal. IMPRESSION Compared to prior study of 03/16/2017, Right ankle brachial index was 1.30 and left was 1.22. RIGHT SIDE Resting right ankle brachial index: 1.19 Post exercise right ankle brachial index: 1.15 Right toe brachial index: 1.10 Normal ankle brachial index at rest in the right leg. Normal toe brachial index at rest in the right leg. Right ankle: Normal at rest. No significant change in pressure and/or ankle-brachial index with exercise. LEFT SIDE Resting left ankle brachial index: 1.16 Post exercise left ankle brachial index: 1.13 Left toe brachial index: 1.11 Normal ankle brachial index at rest in the left leg. Normal toe brachial index at rest in the left leg. Left ankle: Normal at rest. No significant change in pressure and/or ankle-brachial index with exercise. Technologist: Emili Joel RVT, [facility] Ordering physician: LINN THOMAS Interpreting physician: CARLEE Washington DO Final CC [facility] Image : [id number] [email or web address] See Link below for Image Normal [facility] ABD AORTA COMPLETE VAS LA Suresh 10-16-2024 US ABD AORTA COMPLETE VAS LAB Non-Invasive Vascular Laboratory [facility] Abdominal Aorta Bilateral/Complete Date of service/time: 10/16/2024 8:29:09 AM Name: MR. TOSHA SPANN Date of : 1945 Age: 79 years Gender: M Clinical Indication Abdominal aortic aneurysm. TECHNIQUE -------- An aortic duplex ultrasound examination was performed, including grayscale imaging and color Doppler and spectral Doppler examination of abdominal aorta as well as the below mentioned arteries. FINDINGS -------- AORTA At renal: PSV: 69 cm/s. EDV: 0 cm/s. 2.12 cm x 2.12 cm Mid: PSV: 57 cm/s. EDV: 0 cm/s. 3.43 cm x 3.42 cm Distal: PSV: 73 cm/s. EDV: 0 cm/s. 2.40 cm Calcified plaque in the abdominal aorta at mid. Calcified plaque in the abdominal aorta at distal. RIGHT VESSELS Common iliac origin: PSV: 59 cm/s. EDV: 0 cm/s. 1.31 cm x 1.26 cm Common iliac proximal: PSV: 81 cm/s. EDV: 0 cm/s. 1.38 cm x 1.37 cm Common iliac mid: PSV: 53 cm/s. EDV: 0 cm/s. 1.40 cm x 1.27 cm Common iliac distal: PSV: 61 cm/s. EDV: 0 cm/s. 1.28 cm x 1.26 cm External iliac proximal: PSV: 61 cm/s. EDV: 0 cm/s. 1.13 cm x 1.14 cm Internal iliac proximal: PSV: 63 cm/s. EDV: 0 cm/s. 0.65 cm x 0.66 cm Heterogeneous plaque in the common iliac artery throughout. LEFT VESSELS Common iliac origin: PSV: 74 cm/s. EDV: 0 cm/s. 1.43 cm x 1.40 cm Common iliac proximal: PSV: 80 cm/s. EDV: 0 cm/s. 1.32 cm x 1.29 cm Common iliac mid: PSV: 82 cm/s. EDV: 0 cm/s. 1.40 cm x 1.37 cm Common iliac distal: PSV: 73 cm/s. EDV: 0 cm/s. 1.43 cm x 1.42 cm External iliac proximal: PSV: 76 cm/s. EDV: 0 cm/s. 1.21 cm x 1.21 cm Internal iliac proximal: PSV: 54 cm/s. EDV: 0 cm/s. 0.64 cm Heterogeneous plaque in the common iliac artery throughout. IMPRESSION Compared to prior study of 01/07/2021, Aorta measured 3.2 cm at mid. AORTA Infrarenal abdominal aortic aneurysm measuring 3.4 x 3.4 cm at mid. Irregular calcified plaque noted. Aorta plaque noted without evidence of hemodynamically significant stenosis . Unable to visualize proximal aorta. RIGHT VESSELS Common iliac artery patent without evidence of aneurysm . Common iliac artery plaque noted without evidence of hemodynamically significant stenosis . External iliac artery patent without evidence of aneurysm at proximal. Internal iliac artery patent without evidence of aneurysm at proximal. LEFT VESSELS Common iliac artery patent without evidence of aneurysm . Common iliac artery plaque noted without evidence of hemodynamically significant stenosis . External iliac artery patent without evidence of aneurysm at proximal. Internal iliac artery patent without evidence of aneurysm at proximal. Technologist: Emili Joel RVT [facility] Ordering physician: LINN THOMAS Interpreting physician: CARLEE Washington DO Final CC [facility] Image : [id number] [email or web address] See Link below for Image Normal [facility] US CAROTID ARTERIES [facility]on 10-16-2024 US CAROTID ARTERIES [facility] Non-Invasive Vascular Laboratory [facility] Carotid Duplex Bilateral/Complete Date of service/time: 10/16/2024 8:10:44 AM Name: MR. TOSHA SPANN Date of : 1945 Age: 79 years Gender: M Clinical Indication Follow-up study on a patient with known carotid disease and dizziness. TECHNIQUE -------- A carotid duplex ultrasound examination was performed, including grayscale imaging and color Doppler and spectral Doppler examination of the below mentioned arteries. FINDINGS -------- RIGHT SIDE Common carotid artery: Origin: PSV: 72 cm/s. EDV: 15 cm/s. Proximal: PSV: 81 cm/s. EDV: 24 cm/s. Mid: PSV: 68 cm/s. EDV: 19 cm/s. Distal: PSV: 65 cm/s. EDV: 18 cm/s. Mild heterogeneous plaque at distal. Internal carotid artery: Origin: PSV: 59 cm/s. EDV: 14 cm/s. Proximal: PSV: 55 cm/s. EDV: 20 cm/s. Mid: PSV: 75 cm/s. EDV: 30 cm/s. Distal: PSV: 65 cm/s. EDV: 25 cm/s. Mild heterogeneous plaque from origin to proximal. ICA/CCA Ratio: 0.9 External carotid artery: Origin: PSV: 59 cm/s. EDV: 11 cm/s. Subclavian artery: Origin: PSV: 119 cm/s. EDV: 0 cm/s. Proximal: PSV: 134 cm/s. EDV: 0 cm/s. Mild heterogeneous plaque at origin. Innominate artery: PSV: 67 cm/s. EDV: 13 cm/s. Vertebral artery: PSV: 28 cm/s. EDV: 8 cm/s. LEFT SIDE Common carotid artery: Proximal: PSV: 71 cm/s. EDV: 21 cm/s. Mid: PSV: 72 cm/s. EDV: 22 cm/s. Distal: PSV: 72 cm/s. EDV: 27 cm/s. Mild heterogeneous plaque from mid to distal. Internal carotid artery: Origin: PSV: 100 cm/s. EDV: 31 cm/s. Proximal: PSV: 82 cm/s. EDV: 23 cm/s. Mid: PSV: 59 cm/s. EDV: 20 cm/s. Distal: PSV: 71 cm/s. EDV: 30 cm/s. Mild heterogeneous calcified and shadowing plaque at origin. ICA/CCA Ratio: 1.4 External carotid artery: Origin: PSV: 68 cm/s. EDV: 16 cm/s. Mild heterogeneous plaque at origin. Subclavian artery: Proximal: PSV: 113 cm/s. EDV: 0 cm/s. Vertebral artery: PSV: 59 cm/s. EDV: 19 cm/s. IMPRESSION Please note: the new carotid interpretation criteria are used as recommended by [employer]. RIGHT SIDE Common carotid artery: Plaque visualized without evidence of hemodynamically significant stenosis. Internal carotid artery: <50% stenosis consistent with mild carotid artery disease. Vertebral artery: Patent and antegrade flow noted. Subclavian artery: Plaque visualized without evidence of hemodynamically significant stenosis. LEFT SIDE Common carotid artery: Plaque visualized without evidence of hemodynamically significant stenosis. Internal carotid artery: <50% stenosis consistent with mild carotid artery disease. Findings may be underestimated due to calcified shadowing plaque at origin . Vertebral artery: Patent and antegrade flow noted. Subclavian artery: Patent. Technologist: Emili Joel RVT [facility] Ordering physician: LINN THOMAS Interpreting physician: CARLEE Washington DO Final CC [facility] Image : [id number] [email or web address] See Link below for Image Normal [facility] CNOVon 10-07-2024 CNOV Office Visit (INTMWS ) TOSHA SPANN ([id number]) 1945 M Date Time Provider Department 10/07/24 2:00 PM NEVIN MARQUEZ INTMWS During your visit today, we recorded the following information about you: Temperature Pulse Respiration Blood pressure 98.5 degrees 68/minute 16/minute 122/78 Weight Height 79.5 kg 1.742 m Nevin Marquez MD 10/07/2024 7:04 PM Addendum This note was created using Ecorithmriter. Subjective Tosha Spann is a 79 year old male. HISTORY Tosha Spann is a 79 year old gentleman here for pre-op evaluation as requested by Dr. Sanders. Tosha Spann has surgery scheduled on 10/25/24 for Ectropion OS surgery at [facility] in [place]. Tosha Spann is a 79-year-old male with a history of hearing loss, left eye ectropion, spinal stenosis, and bowel irregularities, presenting for preoperative evaluation for left eye ectropion surgery scheduled on 10/25. Tosha reports a history of hearing loss beginning in his 20s, which has led him to become proficient in lip reading. He is currently preparing for left eye ectropion surgery at [facility] in [place], performed by Dr. Elder. Tosha notes that his left eyelid is drooping, causing dryness and excessive tearing due to incomplete closure, even at night. He has been using prednisolone eye drops daily for the past few months, which has improved the condition, reducing redness and watering. Tosha also reports a recent radiofrequency ablation procedure performed by Dr. Brink to address chronic rhinorrhea. He has been advised to avoid Advil for 10 days before and after the procedure, and for 20 days before the upcoming eye surgery, resulting in over a month without Advil. This has exacerbated his chronic back pain, secondary to spinal stenosis, to the point where he had to take hydrocodone yesterday, which he dislikes. He requests a refill of hydrocodone, noting that he typically uses 6-10 pills per year for severe pain. Additionally, Tosha reports a recent fall on ice while working on his driveway, landing on his elbow and experiencing a sensation of vertebrae cracking. He denies any issues with prior anesthesia but mentions a history of elevated blood pressure during previous surgeries, which has caused concern for anesthesiologists. Tosha also reports bowel irregularities, alternating between constipation and loose stools, leading to fecal incontinence. He has tried various treatments, including Miralax and Citrucel, but has not found a consistent solution. He notes that chocolate seems to help with bowel movements but has led to a 6-pound weight gain. PAST MEDICAL HISTORY Diagnosis Date Abnormal REM sleep REM dependent ALFONSO Arthritis BPH with obstruction/lower urinary tract symptoms CAD (coronary artery disease) Diabetes (HCC) Diarrhea 05/11/2005 Enthesopathy of hip region 05/11/2005 Esophageal reflux 05/11/2005 Hemorrhage of gastrointestinal tract, unspecified 05/11/2005 History of transfusion Pt thinks maybe w/ his open heart;He possibly had a transfusion IFG (impaired fasting glucose) Intestinal infection due to campylobacter 05/11/2005 Migraine without aura, without mention of intractable migraine without mention of status migrainosus 05/11/2005 Propranolol effective for prevention Motion sickness Nocturnal hypoxemia Diagnosed on PSG Primary hypertension 05/11/2005 PUD (peptic ulcer disease) 1968 conservative tx while in service Pure hypercholesterolemia 05/11/2005 Sciatica 05/11/2005 Sleep apnea APAP uses nightly;Pt repors he's a very sallow breather Thyroid disease PAST SURGICAL HISTORY Procedure Laterality Date APPENDECTOMY CABG (3) VEIN GRAFTS AND ARTERIAL GRAFT(S) 10/25/2021 CHOLECYSTECTOMY COLONOSCOPY FLX DX W/COLLJ SPEC WHEN PFRMD 01/29/2001 Colonoscopy COLONOSCOPY FLX DX W/COLLJ SPEC WHEN PFRMD 03/26/2018 Colonoscopy COLONOSCOPY W/BIOPSY SINGLE/MULTIPLE 05/16/2008 ESOPHAGOGASTRODUODENOSCOPY TRANSORAL DIAGNOSTIC 03/26/2018 EGD ESOPHAGOSCOPY FLEX BALLOON DILAT <30 MM DIAM 04/12/2006 Esophageal dilatation PAST SURGICAL HISTORY OF 1999 hemorrhoidectomy PAST SURGICAL HISTORY OF left footsurgery PAST SURGICAL HISTORY OF 1990 Brad fundoplication PAST SURGICAL HISTORY OF 10/2006 re-do fundoplication Dr Felix PAST SURGICAL HISTORY OF 03/07/2022 Spinal cord stimulator placement RPR 1ST INGUN HRNA AGE 7 YRS/> REDUCIBLE age 17 Hernia repair, inguinal, left ALLERGIES Allergen Reactions Flomax [Tamsulosin * Hives Percocet [Oxycodone* GI Upset Pt gets severe Nausea;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 Barium Sulfate Hives, Itching Pt has had barium multiple times in the past with no reaction. Only reaction one time Carafate [Sucralfat* GI Upset worsening of chest pain and IBS symptoms Penicill (more content not included)... Normal [facility] Stephon 08-29-2024 CNPN Telephone (AGCARDPOB ) MARIA INESTOSHA Miriam ([id number]) 1945 M Date Time Provider Department 08/29/24 EMILIANA ESTEVEZ AGCARDPOB During your visit today, we recorded the following information about you: Camryn Pimentel 08/29/2024 8:02 AM Signed Cardiac Clearance received from Dr Sanders for Ectropin on 10/25/[address] Estevez on 08/12/24 Form scanned in and placed in Dr Rubi Box for review Janes Pacheco 09/02/2024 10:14 AM Signed Recieved completed clearance scanned in documents and faxed back to sender. Janes Jarquin September 02, 2024 10:14 AM Allergies As of Date: 08/29/2024 Noted Allergy Reaction FLOMAX (TAMSULOSIN HCL) 06/10/2011 4 - Hives PERCOCET (OXYCODONE-ACETAMINOPHEN) 8 - GI Upset Comments: Pt gets severe Nausea;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 BARIUM SULFATE 03/16/2015 4 - Hives 9 - Itching Comments: Pt has had barium multiple times in the past with no reaction. Only reaction one time CARAFATE (SUCRALFATE) 04/23/2015 8 - GI Upset Comments: worsening of chest pain and IBS symptoms PENICILLINS 05/11/2005 Comments: unknown -childhood ERYTHROMYCIN 05/11/2005 8 - GI Upset Comments: only PO is problematic Date Reviewed: 08/13/2024 Reviewed by: Anna Gupta OCCA - Fully Assessed Reason for Visit: Cardiac Clearance [4105] Prescriptions as of 09/02/2024 - traZODone (DESYREL) 50 mg tablet Take 0.5-1 tablets by mouth daily at bedtime. For insomnia and depression - losartan (COZAAR) 50 mg tablet take 1 tablet twice daily - amLODIPine (NORVASC) 5 mg tablet Take 1 tablet by mouth once daily. - metFORMIN ER (GLUCOPHAGE XR) 500 mg 24 hr tablet Take 1 tablet by mouth daily with breakfast. - propranolol ER (INDERAL LA) 120 mg 24 hr capsule Take 1 capsule by mouth once daily. - omeprazole (PRILOSEC) 40 mg capsule Take 1 capsule by mouth two times a day. - fluticasone (FLONASE) 50 mcg/actuation nasal spray Use 2 Sprays in each nostril once daily as needed. - ipratropium bromide (ATROVENT) 42 mcg (0.06 %) nasal spray Use 2 Sprays in the nose daily at bedtime. - betamethasone dipropionate, augmented (DIPROLENE) 0.05 % cream APPLY TO HANDS ONCE DAILY AT NIGHT WHEN FLARED, COVER WITH COTTON GLOVES OVERNIGHT - calcium citrate/vitamin D3 (CALCIUM CITRATE + D ORAL) Take 1 tablet by mouth once daily. - ibuprofen (ADVIL) 200 mg tablet Take 400 mg by mouth two times a day. - acetaminophen (TYLENOL) 325 mg cap Take 650 mg by mouth once daily. - Ascorbic Acid (VITAMIN C) 1,000 mg tablet Take 1,000 mg by mouth once daily. - fluticasone propionate (FLOVENT INHALATION) Inhale as instructed as needed. - loratadine (CLARITIN) 10 mg tablet Take 10 mg by mouth once daily. - L.acidophilus-L.rhamnosus (PROBIOTIC) 15 billion cell capsule Take 1 capsule by mouth once daily. - vitamin B complex (B COMPLEX 1 ORAL) Take 1 tablet by mouth once daily. - multivitamin with minerals (DAILY MULTIVITAMIN-MINERALS) tablet Take 1 tablet by mouth once daily. - melatonin 5 mg tablet Take 5 mg by mouth at bedtime as needed for insomnia. - simethicone (GAS-X ORAL) Take 1 Capful by mouth once daily. - dicyclomine (BENTYL) 20 mg tablet Take 1 tablet by mouth once daily. - ondansetron (ZOFRAN) 4 mg tablet Take 1 tablet by mouth every 8 hours as needed for nausea/vomiting. - Blood-Glucose Meter 1 Device as directed. Test Three times a day. Before breakfast, lunch and before bedtime. - Blood Glucose Control, Normal soln 1 Ampule as directed. - blood sugar diagnostic test strip Use with blood glucose test 3 times daily, Insulin Dep? No - Lancets lancets Use with blood glucose test 3 times daily. Insulin Dep? No - alcohol swabs Use with blood glucose test 3 times daily. Insulin Dep? No - docusate sodium (COLACE) 100 mg capsule Take 100 mg by mouth once daily. - ipratropium 20 mcg-albuterol 100 mcg (COMBIVENT RESPIMAT) 20-100 mcg/actuation inhaler Inhale 1 Puff as instructed every 6 hours as needed. - promethazine (PHENERGAN) 25 mg tablet Take 1 tablet by mouth every 8 hours as needed. FOR NAUSEA - albuterol HFA (VENTOLIN HFA) 90 mcg/actuation inhaler Inhale 2 Puffs as instructed every 4 hours as needed for Wheezing/Shortness of Breath. Problem List As Of Date 08/29/2024 Noted Resolved SCIATICA [M54.30] 05/11/2005 ENTHESOPATHY OF HIP [M76.899] 05/11/2005 ESOPHAGEAL REFLUX [K21.9] 05/11/2005 Primary hypertension [I10] 05/11/2005 MGRN WO [facility] WO [facility] MGR [G43.009] 05/11/2005 DIARRHEA NOS [R19.7] 05/11/2005 GASTROINTEST HEMORR NOS [K92.2] 05/11/2005 CAMPYLOBACTER ENTERITIS [A04.5] 05/11/2005 MYALGIA AND MYOSITIS NOS [[id number]] 05/11/2005 Unspecified sinusitis (chronic) [J32.9] 08/24/2005 09/25/2018 ESOPHAGITIS, UNSPECIFIED [K20.90] 04/12/2006 BLADDER NECK OBSTRUCTION [N32.0] 0 (more content not included)... 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 I was going to put loaners in the bin, but you came out to help him and took the loaners. Thank you!!!! Allergies As of Date: 08/27/2024 Noted Allergy Reaction FLOMAX (TAMSULOSIN HCL) 06/10/2011 4 - Hives PERCOCET (OXYCODONE-ACETAMINOPHEN) 8 - GI Upset Comments: Pt gets severe Nausea;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 BARIUM SULFATE 03/16/2015 4 - Hives 9 - Itching Comments: Pt has had barium multiple times in the past with no reaction. 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 For insomnia and depression - losartan (COZAAR) 50 mg tablet take 1 tablet twice daily - amLODIPine (NORVASC) 5 mg tablet Take 1 tablet by mouth once daily. - metFORMIN ER (GLUCOPHAGE XR) 500 mg 24 hr tablet Take 1 tablet by mouth daily with breakfast. - propranolol ER (INDERAL LA) 120 mg 24 hr capsule Take 1 capsule by mouth once daily. - omeprazole (PRILOSEC) 40 mg capsule Take 1 capsule by mouth two times a day. - fluticasone (FLONASE) 50 mcg/actuation nasal spray Use 2 Sprays in each nostril once daily as needed. - ipratropium bromide (ATROVENT) 42 mcg (0.06 %) nasal spray Use 2 Sprays in the nose daily at bedtime. - betamethasone dipropionate, augmented (DIPROLENE) 0.05 % cream APPLY TO HANDS ONCE DAILY AT NIGHT WHEN FLARED, COVER WITH COTTON GLOVES OVERNIGHT - calcium citrate/vitamin D3 (CALCIUM CITRATE + D ORAL) Take 1 tablet by mouth once daily. - ibuprofen (ADVIL) 200 mg tablet Take 400 mg by mouth two times a day. - acetaminophen (TYLENOL) 325 mg cap Take 650 mg by mouth once daily. - Ascorbic Acid (VITAMIN C) 1,000 mg tablet Take 1,000 mg by mouth once daily. - fluticasone propionate (FLOVENT INHALATION) Inhale as instructed as needed. - loratadine (CLARITIN) 10 mg tablet Take 10 mg by mouth once daily. - L.acidophilus-L.rhamnosus (PROBIOTIC) 15 billion cell capsule Take 1 capsule by mouth once daily. - vitamin B complex (B COMPLEX 1 ORAL) Take 1 tablet by mouth once daily. - multivitamin with minerals (DAILY MULTIVITAMIN-MINERALS) tablet Take 1 tablet by mouth once daily. - melatonin 5 mg tablet Take 5 mg by mouth at bedtime as needed for insomnia. - simethicone (GAS-X ORAL) Take 1 Capful by mouth once daily. - dicyclomine (BENTYL) 20 mg tablet Take 1 tablet by mouth once daily. - ondansetron (ZOFRAN) 4 mg tablet Take 1 tablet by mouth every 8 hours as needed for nausea/vomiting. - Blood-Glucose Meter 1 Device as directed. Test Three times a day. Before breakfast, lunch and before bedtime. - Blood Glucose Control, Normal soln 1 Ampule as directed. - blood sugar diagnostic test strip Use with blood glucose test 3 times daily, Insulin Dep? No - Lancets lancets Use with blood glucose test 3 times daily. Insulin Dep? No - alcohol swabs Use with blood glucose test 3 times daily. Insulin Dep? No - docusate sodium (COLACE) 100 mg capsule Take 100 mg by mouth once daily. - ipratropium 20 mcg-albuterol 100 mcg (COMBIVENT RESPIMAT) 20-100 mcg/actuation inhaler Inhale 1 Puff as instructed every 6 hours as needed. - promethazine (PHENERGAN) 25 mg tablet Take 1 tablet by mouth every 8 hours as needed. FOR NAUSEA - albuterol HFA (VENTOLIN HFA) 90 mcg/actuation inhaler Inhale 2 Puffs as instructed every 4 hours as needed for Wheezing/Shortness of Breath. Problem List As Of Date 08/27/2024 Noted Resolved SCIATICA [M54.30] 05/11/2005 ENTHESOPATHY OF HIP [M76.899] 05/11/2005 ESOPHAGEAL REFLUX [K21.9] 05/11/2005 Primary hypertension [I10] 05/11/2005 MGRN WO AURA WO [facility] MGR [G43.009] 05/11/2005 DIARRHEA NOS [R19.7] 05/11/2005 GASTROINTEST HEMORR NOS [K92.2] 05/11/2005 CAMPYLOBACTER ENTERITIS [A04.5] 05/11/2005 MYALGIA AND MYOSITIS NOS [[id number]] 05/11/2005 Unspecified sinusitis (chronic) [J32.9] 08/24/2005 09/25/2018 ESOPHAGITIS, UNSPECIFIED [K20.90] 04/12/2006 BLADDER NECK OBSTRUCTION [N32.0] 03/18/2008 BPH W URINARY OBS/LUTS [N40.1, N13.8] 03/18/2008 IMPOTENCE, ORGANIC ORIGN [N52.9] 03/18/2008 Mixed hyperlipidemia [E78.2] 10/10/2008 MALAISE AND FATIGUE NEC [R53.81, R53.83] 10/10/2008 OSTE (more content not included)... Normal [facility] CNOVon 08-13-2024 CNOV Office Visit (VASSWS ) TOSHA SPANN ([id number]) 1945 M Date Time Provider Department 08/13/24 10:00 AM LINN THOMAS VASSWS During your visit today, we recorded the following information about you: Pulse Blood pressure 62/minute 162/83 Linn Thomas DO 08/13/2024 12:52 PM Signed [facility] DEPARTMENT OF VASCULAR SURGERY OUTPATIENT VISIT DATE August 13, 2024 OUTPATIENT VISIT TYPE CONSULTATION SERVICE DATE: 08/13/2024 SERVICE TIME: 10:06 AM PRIMARY CARE PHYSICIAN: Nevin Marquez MD REFERRING PROVIDER: Linn Thomas [address] [facility] [id number] Consult requested for an opinion regarding the evaluation and treatment of the above. My final impression and recommendations will be communicated back to the requesting physician by way of the shared medical record or letter via US mail. CHIEF COMPLAINT: Re-establish care, known AAA HISTORY OF PRESENT ILLNESS: Vascular consultation at the request of Dr. Linn Thomas. A copy of this consultation note will be provided to the requesting physician by way of shared Medical record or letter to requesting physician via US mail. Mr. Spann is a 79 year old male who is seen today for bilateral lower extremity cramping. He has known back disease and has spinal stimulator. He has tried numerous statins which have caused leg cramps. States his legs will go numb when sitting for longer periods of time. He has a known AAA- last duplex was in 2020- 3.2cm. He also admits to dizziness and issues with balance and difficulty walking PAST MEDICAL HISTORY Diagnosis Date Abnormal REM sleep REM dependent ALFONSO Arthritis BPH with obstruction/lower urinary tract symptoms CAD (coronary artery disease) Diabetes (HCC) Diarrhea 05/11/2005 Enthesopathy of hip region 05/11/2005 Esophageal reflux 05/11/2005 Hemorrhage of gastrointestinal tract, unspecified 05/11/2005 History of transfusion Pt thinks maybe w/ his open heart;He possibly had a transfusion IFG (impaired fasting glucose) Intestinal infection due to campylobacter 05/11/2005 Migraine without aura, without mention of intractable migraine without mention of status migrainosus 05/11/2005 Propranolol effective for prevention Motion sickness Nocturnal hypoxemia Diagnosed on PSG Primary hypertension 05/11/2005 PUD (peptic ulcer disease) 1968 conservative tx while in service Pure hypercholesterolemia 05/11/2005 Sciatica 05/11/2005 Sleep apnea APAP uses nightly;Pt repors he's a very sallow breather Thyroid disease PAST SURGICAL HISTORY Procedure Laterality Date APPENDECTOMY CABG (3) VEIN GRAFTS AND ARTERIAL GRAFT(S) 10/25/2021 CHOLECYSTECTOMY COLONOSCOPY FLX DX W/COLLJ SPEC WHEN PFRMD 01/29/2001 Colonoscopy COLONOSCOPY FLX DX W/COLLJ SPEC WHEN PFRMD 03/26/2018 Colonoscopy COLONOSCOPY W/BIOPSY SINGLE/MULTIPLE 05/16/2008 ESOPHAGOGASTRODUODENOSCOPY TRANSORAL DIAGNOSTIC 03/26/2018 EGD ESOPHAGOSCOPY FLEX BALLOON DILAT <30 MM DIAM 04/12/2006 Esophageal dilatation PAST SURGICAL HISTORY OF 1999 hemorrhoidectomy PAST SURGICAL HISTORY OF left footsurgery PAST SURGICAL HISTORY OF 1990 Brad fundoplication PAST SURGICAL HISTORY OF 10/2006 re-do fundoplication Dr Felix PAST SURGICAL HISTORY OF 03/07/2022 Spinal cord stimulator placement RPR 1ST INGUN HRNA AGE 7 YRS/> REDUCIBLE age 17 Hernia repair, inguinal, left SOCIAL HISTORY: Social History Tobacco Use Smoking status: Former Current packs/day: 0.00 Average packs/day: 1.5 packs/day for 6.0 years (9.0 ttl pk-yrs) Types: Cigarettes Start date: 09/18/1964 Quit date: 09/18/1970 Years since quittin.9 Passive exposure: Never Smokeless tobacco: Never Vaping Use Vaping status: Never Used Substance Use Topics Alcohol use: Not Currently Comment: rarely Drug use: No FAMILY HISTORY Problem Relation Age of Onset Diabetes Mother Heart Father [place] Diabetes Brother Stroke Maternal Grandfather Cancer Paternal Grandfather MEDICATIONS: traZODone (DESYREL) 50 mg tablet Take 0.5-1 tablets by mouth daily at bedtime. For insomnia and depression losartan (COZAAR) 50 mg tablet take 1 tablet twice daily amLODIPine (NORVASC) 5 mg tablet Take 1 tablet by mouth once daily. metFORMIN ER (GLUCOPHAGE XR) 500 mg 24 hr tablet Take 1 tablet by mouth daily with breakfast. propranolol ER (INDERAL LA) 120 mg 24 hr capsule Take 1 capsule by mouth once daily. omeprazole (PRILOSEC) 40 mg capsule Take 1 capsule by mouth two times a day. fluticasone (FLONASE) 50 mcg/actuation nasal spray Use 2 Sprays in each nostril once daily as needed. ipratropium bromide (ATROVENT) 42 mcg (0.06 %) nasal spray Use 2 Sprays in the nose daily at bedtime. betamethasone dipropionate, augmented (DIPROLENE) 0.05 % cream APPLY TO HANDS ONCE DAILY AT NIGHT WHEN FLARED, COVER (more content not included)... Normal [facility] CNOVon 08-12-2024 CNOV Office Visit (CAWSTR ) TOSHA SPANN ([id number]) 1945 M Date Time Provider Department 08/12/24 11:00 AM EMILIANA ESTEVEZ CAWSTR During your visit today, we recorded the following information about you: Pulse Blood pressure Weight 65/minute 167/80 78.5 kg Emiliana Estevez MD 08/12/2024 11:41 AM Signed Emiliana Estevez MD Interventional Cardiology [address] [place] [address] [phone] Chief Complaint Patient presents with: Established Patient Follow-Up: 6 mo follow up HISTORY OF PRESENT ILLNESS: Mr. Spann is a 79 year old male seen in my office today for assessment management prior history of severe three-vessel coronary artery disease and left main underwent bypass surgery JEFF to the LAD vein graft to the circumflex and vein graft to the PDA doing well from the cardiac 1 to be asymptomatic denies chest pain or shortness of breath Major complication claudications and muscle ache possible peripheral vascular disease versus statin induced myalgia Cardiac Risk Factors age (male over 45, female over 55), hyperlipidemia, history of smoking, hypertension, family history of CAD PAST MEDICAL HISTORY Diagnosis Date Abnormal REM sleep REM dependent ALFONSO Arthritis BPH with obstruction/lower urinary tract symptoms CAD (coronary artery disease) Diabetes (HCC) Diarrhea 05/11/2005 Enthesopathy of hip region 05/11/2005 Esophageal reflux 05/11/2005 Hemorrhage of gastrointestinal tract, unspecified 05/11/2005 History of transfusion Pt thinks maybe w/ his open heart;He possibly had a transfusion IFG (impaired fasting glucose) Intestinal infection due to campylobacter 05/11/2005 Migraine without aura, without mention of intractable migraine without mention of status migrainosus 05/11/2005 Propranolol effective for prevention Motion sickness Nocturnal hypoxemia Diagnosed on PSG Primary hypertension 05/11/2005 PUD (peptic ulcer disease) 1968 conservative tx while in service Pure hypercholesterolemia 05/11/2005 Sciatica 05/11/2005 Sleep apnea APAP uses nightly;Pt repors he's a very sallow breather Thyroid disease PAST SURGICAL HISTORY Procedure Laterality Date APPENDECTOMY CABG (3) VEIN GRAFTS AND ARTERIAL GRAFT(S) 10/25/2021 CHOLECYSTECTOMY COLONOSCOPY FLX DX W/COLLJ SPEC WHEN PFRMD 01/29/2001 Colonoscopy COLONOSCOPY FLX DX W/COLLJ SPEC WHEN PFRMD 03/26/2018 Colonoscopy COLONOSCOPY W/BIOPSY SINGLE/MULTIPLE 05/16/2008 ESOPHAGOGASTRODUODENOSCOPY TRANSORAL DIAGNOSTIC 03/26/2018 EGD ESOPHAGOSCOPY FLEX BALLOON DILAT <30 MM DIAM 04/12/2006 Esophageal dilatation PAST SURGICAL HISTORY OF 1999 hemorrhoidectomy PAST SURGICAL HISTORY OF left footsurgery PAST SURGICAL HISTORY OF 1990 Brad fundoplication PAST SURGICAL HISTORY OF 10/2006 re-do fundoplication Dr Felix PAST SURGICAL HISTORY OF 03/07/2022 Spinal cord stimulator placement RPR 1ST INGUN HRNA AGE 7 YRS/> REDUCIBLE age 17 Hernia repair, inguinal, left FAMILY HISTORY Problem Relation Age of Onset Diabetes Mother Heart Father [place] Diabetes Brother Stroke Maternal Grandfather Cancer Paternal Grandfather Social History Tobacco Use Smoking status: Former Current packs/day: 0.00 Average packs/day: 1.5 packs/day for 6.0 years (9.0 ttl pk-yrs) Types: Cigarettes Start date: 09/18/1964 Quit date: 09/18/1970 Years since quittin.9 Passive exposure: Never Smokeless tobacco: Never Vaping Use Vaping status: Never Used Substance Use Topics Alcohol use: Not Currently Comment: rarely Drug use: No ALLERGIES Allergen Reactions Flomax [Tamsulosin * Hives Percocet [Oxycodone* GI Upset Pt gets severe Nausea;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 Barium Sulfate Hives, Itching Pt has had barium multiple times in the past with no reaction. Only reaction one time Carafate [Sucralfat* GI Upset worsening of chest pain and IBS symptoms Penicillins unknown -childhood Erythromycin GI Upset only PO is problematic Medications: Current Outpatient Medications Medication Sig Dispense Refill traZODone (DESYREL) 50 mg tablet Take 0.5-1 tablets by mouth daily at bedtime. For insomnia and depression 90 tablet 3 losartan (COZAAR) 50 mg tablet take 1 tablet twice daily 180 tablet 3 amLODIPine (NORVASC) 5 mg tablet Take 1 tablet by mouth once daily. 90 tablet 3 metFORMIN ER (GLUCOPHAGE XR) 500 mg 24 hr tablet Take 1 tablet by mouth daily with breakfast. 90 tablet 3 propranolol ER (INDERAL LA) 120 mg 24 hr capsule Take 1 capsule by mouth once daily. 90 capsule 3 omeprazole (PRILOSEC) 40 mg capsule Take 1 capsule by mouth two times a day. 180 capsule 3 fluticasone (FLONASE) 50 mcg/actuation nasal spray Use 2 Sprays in each nostril once daily as needed. 3 Each 3 ipratropium bromide (ATROVENT) 42 mcg (0.06 %) liza (more content not included)... Normal [facility] CNOVon 07-25-2024 CN Office Visit (INTMWS ) SPANNZENON ASHJENNIFER Pineda ([id number]) 1945 M Date Time Provider Department 07/25/24 10:00 AM SHARAD BRENNAN INTMWS During your visit today, we recorded the following information about you: Pulse Respiration Blood pressure Weight 65/minute 16/minute 138/78 78.8 kg Sharad Brennan APRN.STAFF PSYCHOLOGIST 07/25/2024 11:43 AM Signed SUBJECTIVE: Urine Albumin:Creatinine Ratio Never done BP Controlled (<130/80) Never done HPI Tosha Spann is a 79 year old male. PMH significant for ACTIVE PROBLEM LIST Sciatica Enthesopathy of Hip Region Esophageal Reflux Essential Hypertension Migraine Without Aura, Without Mention of Intractable Migraine Without Mention of Status Migrainosus Diarrhea Hemorrhage of Gastrointestinal Tract, Unspecified Intestinal Infection Due to Campylobacter Myalgia and Myositis, Unspecified Esophagitis, Unspecified Bladder Neck Obstruction Hypertrophy of Prostate With Urinary Obstruction and Other Lower Urinary Tract Symptoms (Luts) Impotence of Organic Origin Mixed Hyperlipidemia Other Malaise and Fatigue Osteoporosis, Unspecified Hyperglycemia Osteoarthritis Contracture of Palmar Fascia Pain in Limb Viral Warts Inflamed Seborrheic Keratosis Other Seborrheic Keratosis Solar Lentigines Actinic Skin Damage Xerosis Cutis Sauceda Angioma Elevated Psa Ddd (Degenerative Disc Disease), Cervical Bph (Benign Prostatic Hypertrophy) With Urinary Obstruction Sensorineural Hearing Loss, Bilateral ALFONSO (obstructive sleep apnea), REM dependent Abnormal Rem Sleep Excessive Daytime Sleepiness Svt (Supraventricular Tachycardia) ([facility]) Tinnitus, Bilateral Ascending Aorta Dilatation ([facility]) Stable Angina Pectoris ([facility]) Cad (Coronary Artery Disease) S/P Cabg X 3 Current Moderate Episode of Major Depressive Disorder ([facility]) Chronic Midline Low Back Pain Psychophysiological Insomnia Ifg (Impaired Fasting Glucose) Mucopurulent Chronic Bronchitis ([facility]) Preop Testing Type 2 Diabetes Mellitus Without Complication, Without Long-Term Current Use of Insulin ([facility]) Bph With Obstruction/Lower Urinary Tract Symptoms Spinal Stenosis of Lumbar Region Right Leg Pain Presents for a routine visit today. HPI excerpted from previous visit: Mr. Spann was seen at [facility] emergency department on June 03, 2023 with lower extremity injury. Injury was to the right anterior thigh. He noted 1 episode of incontinence following but no new numbness anesthesia or fecal incontinence. He reported slipping down 3 stairs the day prior to arrival. Ice and compression wraps did not help much. He noted pain with movement and weakness secondary to the pain. Exam documented as unremarkable. X-ray completed and did not show a fracture of the femur. He declined pain medicine. He was advised to avoid weightbearing and use crutches. Cibs-clx-xtxnpxx pain medicines and follow-up with primary care. He was seen by Dr. Lei pain management subsequently and underwent MRI lower extremity of the right side without contrast which showed large knee effusion, extensive superficial subcutaneous soft tissue edema and extensive circumferential strains of the anterior posterior medial and lateral compartmental musculature. Distal quadriceps tendinosis with increased signal intensity and thickening noted. Normal femur. Today reports he had 2 recent falls with the same footwear which he has now turned away. He reports the last fall falling over to his side on gravel/garden He reports taking as needed ibuprofen. No report of GERD symptoms or signs of GI bleeding. Notes icing periodically. Elevating his leg. Not currently using an Mathew wrap because he was ballooning out above and below. Orthopedic appointment has not yet been scheduled. Notes pain of anterior quadriceps near knee, distal quadricep pain worse with flexion, not worse walking unless loses his balance. Anterior thigh pain up to groin level, but less than at knee. He notes he is in his usual state of health. He notes continued back pain. Has been worse since his fall. Notes he is finding stimulator which has not helped as much since the fall. No recent visit with Dr. Lei pain management. He notes that Dr. Lei also wants to give him the lumbar injection to help with back pain however he has difficulty getting a ride to and from the appointment. Continued knee pain, underwent injection to his knee which did help. He notes drinking most of his daily fluid earlier in the day around 6 PM. Notes he can feel dizzy in the morning when he wakes up until he drinks some fluid. Notes blood sugars well-controlled from 100-110s when checking about once per week. No low readings. Sees counselor since his 2 years ago. Does have some trouble sleeping, melatonin and trazodone do help. Reports read a (more content not included)... Normal [facility] CBC panel Auto (Bld)on 07-24 Erythrocyte distribution width (RBC) [Ratio] 12.6 % Normal 11.5-15.0 [facility] Comment on above: Order Comment: Speci men Type: BLOOD SPECIMENOrdering Facility: [facility] Address: [address] [place] [address] Performed By: #### 5 8410-2 ####[facility] [id number] [place] [address] [place] Hematocrit (Bld) [Volume fraction] 39.4 % Normal 39.0-51.0 [facility] Comment on above: Order Comment: Speci men Type: BLOOD SPECIMENOrdering Facility: [facility] Address: [address] [place] [address] Performed By: #### 5 8410-2 ####[facility] [id number] [place] [address] [place] Hemoglobin (Bld) [Mass/Vol] 13.0 g/dL Normal 13.0-17.0 [facility] Comment on above: Order Comment: Speci men Type: BLOOD SPECIMENOrdering Facility: [facility] Address: [address] [place] [address] Performed By: #### 5 8410-2 ####[facility] [id number] [place] [address] [place] MCH (RBC) [Entitic mass] 31.1 pg Normal 26.0-34.0 [facility] Comment on above: Order Comment: Speci men Type: BLOOD SPECIMENOrdering Facility: [facility] Address: [address] [place] [address] Performed By: #### 5 8410-2 ####[facility] [id number] [place] [address] [place] MCHC (RBC) [Mass/Vol] 33.0 g/dL Normal 30.5-36.0 [facility] Comment on above: Order Comment: Speci men Type: BLOOD SPECIMENOrdering Facility: [facility] Address: [address] [place] [address] Performed By: #### 5 8410-2 ####[facility] [id number] [place] [address] [place] MCV (RBC) [Entitic vol] 94.3 fL Normal 80.0-100.0 [facility] Comment on above: Order Comment: Speci men Type: BLOOD SPECIMENOrdering Facility: [facility] Address: [address] [place] [address] Performed By: #### 5 8410-2 ####[facility] [id number] [place] [address] [place] Nucleated RBC (Bld) [#/Vol] 10*3/uL Normal <0.01 [facility] Comment on above: Order Comment: Speci men Type: BLOOD SPECIMENOrdering Facility: [facility] Address: [address] [place] [address] Performed By: #### 5 8410-2 ####[facility] LABIA [id number] [place] [address] [place] Platelet mean volume (Bld) [Entitic vol] 9.0 fL Normal 9.0-12.7 [facility] Comment on above: Order Comment: Speci men Type: BLOOD SPECIMENOrdering Facility: [facility] Address: [address] [place] [address] Performed By: #### 5 8410-2 ####[facility] [id number] [place] [address] [place] Platelets (Bld) [#/Vol] 297 10*3/uL Normal 150-400 [facility] Comment on above: Order Comment: Speci men Type: BLOOD SPECIMENOrdering Facility: [facility] Address: [address] [place] [address] Performed By: #### 5 8410-2 ####[facility] [id number] [place] [address] [place] RBC (Bld) [#/Vol] 4.18 10*6/uL Low 4.20-6.00 [facility] Comment on above: Order Comment: Speci men Type: BLOOD SPECIMENOrdering Facility: [facility] Address: [address] [place] [address] Performed By: #### 5 8410-2 ####[facility] [id number] [place] [address] [place] WBC (Bld) [#/Vol] 5.65 10*3/uL Normal 3.70-11.00 [facility] Comment on above: Order Comment: Speci men Type: BLOOD SPECIMENOrdering Facility: [facility] Address: [address] [place] [address] Performed By: #### 5 8410-2 ####[facility] [id number] [address] [address] [place] Comprehensive metabolic 2000 panelon 07-24-2024 Albumin [Mass/Vol] 4.8 g/dL Normal 3.9-4.9 [facility] Comment on above: Order Comment: Speci men Type: BLOOD SPECIMENOrdering Facility: [facility] Address: [address] [place] [address] Performed By: #### 2 4331-1, 05325-6 ####[facility] [id number] [place] [address] [place] ALP [Catalytic activity/Vol] 43 U/L Normal 38-113 [facility] Comment on above: Order Comment: Speci men Type: BLOOD SPECIMENOrdering Facility: [facility] Address: [address] [place] [address] Performed By: #### 2 4331-1, 87913-6 ####[facility] [id number] [place] [address] [place] ALT [Catalytic activity/Vol] 14 U/L Normal 10-54 [facility] Comment on above: Order Comment: Speci men Type: BLOOD SPECIMENOrdering Facility: [facility] Address: [address] [place] [address] Performed By: #### 2 4331-1, 81809-7 ####[facility] [id number] [place] [id number] [place] Anion gap [Moles/Vol] 10 mmol/L Normal 8-15 [facility] Comment on above: Order Comment: Speci men Type: BLOOD SPECIMENOrdering Facility: [facility] Address: [address] [place], [place] [address] Performed By: #### 2 4331-1, 24008-7 ####[facility] [id number] [place] [address] [place] AST [Catalytic activity/Vol] 14 U/L Normal 14-40 [facility] Comment on above: Order Comment: Speci men Type: BLOOD SPECIMENOrdering Facility: [facility] Address: [address] [place] [address] Performed By: #### 2 4331-1, 95211-9 ####[facility] [id number] [place] [address] [place] Bilirubin [Mass/Vol] 0.4 mg/dL Normal 0.2-1.3 [facility] Comment on above: Order Comment: Speci men Type: BLOOD SPECIMENOrdering Facility: [facility] Address: [address] [place] [address] Performed By: #### 2 4331-1, 42408-7 ####[facility] [id number] [place] [address] [place] Calcium [Mass/Vol] 9.9 mg/dL Normal 8.5-10.2 [facility] Comment on above: Order Comment: Speci men Type: BLOOD SPECIMENOrdering Facility: [facility] Address: [address] [place] [address] Performed By: #### 2 4331-1, 41884-3 ####[facility] [id number] [place] [address] [place] Chloride [Moles/Vol] 96 mmol/L Low 98-107 [facility] Comment on above: Order Comment: Speci men Type: BLOOD SPECIMENOrdering Facility: [facility] Address: [address] [place] [address] Performed By: #### 2 4331-1, 39933-6 ####[facility] [id number] [place] [address] [place] CO2 [Moles/Vol] 27 mmol/L Normal 22-30 [facility] Comment on above: Order Comment: Speci men Type: BLOOD SPECIMENOrdering Facility: [facility] Address: [address] [place] [address] Performed By: #### 2 433-, ####[facility] [id number] [address] [address] [place] Creatinine [Mass/Vol] 0.89 mg/dL Normal 0.73-1.22 [facility] Comment on above: Order Comment: Speci men Type: BLOOD SPECIMENOrdering Facility: [facility] Address: [address] [place] [address] Performed By: #### 2 433-, ####[facility] [id number] [place] [address] [place] Creatinine and Glomerular filtration rate.predicted panel (S/P/Bld) 88 mL/min/1.73m??? Normal >=60 [facility] Comment on above: Order Comment: Speci men Type: BLOOD SPECIMENOrdering Facility: [facility] Address: [address] [place] [address] Result Comment: Maria Elena mated Glomerular Filtration Rate (eGFR) is calculated using the 2020 CKD-EPI creatinine equation. This equation utilizes serum creatinine, sex, and age as parameters. The creatinine assay has traceable calibration to isotope dilution-mass spectrometry. Refer to KDIGO guidelines for clinical interpretation. In patients with unstable renal function, e.g. those with acute kidney injury, the eGFR may not accurately reflect actual GFR. Performed By: #### 2 4331-1, ####[facility] [id number] [place] [id number] [place] Glucose [Mass/Vol] 93 mg/dL Normal 74-99 [facility] Comment on above: Order Comment: Speci men Type: BLOOD SPECIMENOrdering Facility: [facility] Address: [address] [place] [address] Result Comment: The [place] Diabetes Association (ADA) provides guidance for cutoff values for fasting glucose and random glucose. The ADA defines fasting as no caloric intake for at least 8 hours. Fasting plasma glucose results between 100 to 125 mg/dL indicate increased risk for diabetes (prediabetes). Fasting plasma glucose results greater than or equal to 126 mg/dL meet the criteria for diagnosis of diabetes. In the absence of unequivocal hyperglycemia, results should be confirmed by repeat testing. In a patient with classic symptoms of hyperglycemia or hyperglycemic crisis, random plasma glucose results greater than or equal to 200 mg/dL meet the criteria for diagnosis of diabetes. Reference: Standards of Medical Care in Diabetes 2016, [place] Diabetes Association. Diabetes Care. 2016.39(Suppl 1). Performed By: #### 2 4331-1, ####[facility] [id number] [place] [address] [place] Potassium [Moles/Vol] 4.3 mmol/L Normal 3.7-5.1 [facility] Comment on above: Order Comment: Speci men Type: BLOOD SPECIMENOrdering Facility: [facility] Address: [address] [place] [address] Performed By: #### 2 4331-, ####[facility] [id number] [place] [address] [place] Protein [Mass/Vol] 7.2 g/dL Normal 6.3-8.0 [facility] Comment on above: Order Comment: Speci men Type: BLOOD SPECIMENOrdering Facility: [facility] Address: [address] [place] [address] Performed By: #### 2 4331-, ####[facility] [id number] [place] [address] [place] Sodium [Moles/Vol] 133 mmol/L Low 136-144 [facility] Comment on above: Order Comment: Speci men Type: BLOOD SPECIMENOrdering Facility: [facility] Address: [address] [place] [address] Performed By: #### 2 433-1, 95737-5 ####[facility] [id number] [place] [address] [place] Urea nitrogen [Mass/Vol] 20 mg/dL Normal 9-24 [facility] Comment on above: Order Comment: Adryani men Type: BLOOD SPECIMENOrdering Facility: [facility] Address: [address] [place] [address] Performed By: #### 2 4331-1, 56144-4 ####[facility] [id number] [place] [address] [place] HbA1c (Bld)on 07-24-2024 Average glucose Estimated from glycated hemoglobin (Bld) [Mass/Vol] 111 mg/dL Normal [facility] Comment on above: Order Comment: [facility] Type: BLOOD SPECIMENOrdering Facility: [facility] Address: [address] [place] [address] Result Comment: eAG: (Estimated average glucose) is a calculated value from HgbA1c and is textile machinery sales representative of the average blood glucose level in the last 2-3 month period. Performed By: #### 5 5454-3 ####[facility] [id number] [address] [place] HbA1c (Bld) [Mass fraction] 5.5 % Normal 4.3-5.6 [facility] Comment on above: Order Comment: Speci men Type: BLOOD SPECIMENOrdering Facility: [facility] Address: [address] [place] [address] Result Comment: Amer [place] Diabetes Association guidelines indicate that patients with HgbA1c in the range 5.7-6.4% are at increased risk for development of diabetes, and intervention by lifestyle modification may be beneficial. HgbA1c greater or equal to 6.5% is considered diagnostic of diabetes. Performed By: #### 5 5454-3 ####[facility] [id number] [place] [address] [place] Lipid 1996 panelon 4 Cholesterol [Mass/Vol] 144 mg/dL Normal <200 [facility] Comment on above: Order Comment: Speci men Type: BLOOD SPECIMENOrdering Facility: [facility] Address: [address] [place] [address] Result Comment: <200 mg/dL, Desirable 200-239 mg/dL, Borderline high >239 mg/dL, High Performed By: #### 2 4331-1, 90139-5 ####[facility] [id number] [address] [place] Cholesterol in HDL [Mass/Vol] 59 mg/dL Normal >39 [facility] Comment on above: Order Comment: Speci men Type: BLOOD SPECIMENOrdering Facility: [facility] Address: [address] [place] [address] Result Comment: 40-5 9 mg/dL, Acceptable >59 mg/dL, High: Negative risk factor for coronary heart disease <40 mg/dL, Low: Positive risk factor for coronary heart disease Performed By: #### 2 4331-1, 93194-4 ####[facility] [id number] [place] [address] [place] Cholesterol in LDL [Mass/Vol] 71 mg/dL Normal <100 [facility] Comment on above: Order Comment: Speci men Type: BLOOD SPECIMENOrdering Facility: [facility] Address: [address] [place] [address] Result Comment: <100 mg/dL, Optimal 100-129 mg/dL, Near optimal/above optimal 130-159 mg/dL, Borderline high 160-189 mg/dL, High >189 mg/dL, Very high Secondary prevention optimal LDL Cholesterol levels are recommended to be < 70 mg/dL Performed By: #### 2 4331-1, 30707-6 ####[facility] [id number] [facility] [address] [address] [place] Cholesterol in LDL/Cholesterol in HDL [Mass ratio] 1.20 {ratio} Normal <2.54 [facility] Comment on above: Order Comment: Alejandro ott Type: BLOOD SPECIMENOrdering Facility: [facility] Address: [address] [place] [address] Result Comment: Sridhar wing: 1. National Cholesterol Education Program ATP III Guideline At-A-Glance Quick Desk Reference: National Heart, Lung, and Blood [place]. National Institutes of Health. 2001: NIH Publication No. 01-3305. 2. An International Atherosclerosis Society position paper: global recommendations for the management of dyslipidemia: executive summary, Atherosclerosis. 2014: 232(2):410-413. Performed By: #### 2 4331-1, ####[facility] [id number] [place] [address] [place] Cholesterol in VLDL [Mass/Vol] 14 mg/dL Normal <30 [facility] Comment on above: Order Comment: Alejandro ott Type: BLOOD SPECIMENOrdering Facility: [facility] Address: [address] [place] [address] Performed By: #### 2 4331-, ####[facility] [id number] [place] [address] [place] Cholesterol non HDL [Mass/Vol] 85 mg/dL Normal <130 [facility] Comment on above: Order Comment: Alejandro ott Type: BLOOD SPECIMENOrdering Facility: [facility] Address: [address] [place] [address] Result Comment: <130 mg/dL, Optimal 130-159 mg/dL, Near optimal/above optimal 160-189 mg/dL, Borderline high 190-219 mg/dL, High >219 mg/dL, Very high Secondary prevention optimal non HDL Cholesterol levels are recommended to be <100 mg/dL Performed By: #### 2 4331-1, 72198-8 ####[facility] [id number] [place] [address] [place] Cholesterol.total/Ch olesterol in HDL [Mass ratio] 2.44 {ratio} Normal <5.10 [facility] Comment on above: Order Comment: Speci men Type: BLOOD SPECIMENOrdering Facility: [facility] Address: [address] [place] [address] Performed By: #### 2 4331-1, 87610-3 ####[facility] [id number] [place] [address] [place] FASTING TIME 12 hrs Normal [facility] Comment on above: Order Comment: Speci men Type: BLOOD SPECIMENOrdering Facility: [facility] Address: [address] [place] [address] Performed By: #### 2 4331-1, ####[facility] [id number] [place] [address] [place] Triglyceride [Mass/Vol] 72 mg/dL Normal <150 [facility] Comment on above: Order Comment: Speci men Type: BLOOD SPECIMENOrdering Facility: [facility] Address: [address] [place] [address] Result Comment: <150 mg/dL, Normal 150-199 mg/dL, Borderline high 200-499 mg/dL, High >499 mg/dL, Very high Performed By: #### 2 4331-1, 29697-4 ####[facility] [id number] [place] [address] [place] CNOVon 07-18-2024 CNOV Office Visit ([facility] ) TOSHA SPANN ([id number]) 1945 M Date Time Provider Department 07/18/24 10:00 AM SUZIE ORTEGA During your visit today, we recorded the following information about you: Suzie Ortega PA-C 07/18/2024 11:52 AM Signed CHIEF COMPLAINT: Tosha Spann is a 79 year old male who presents today for Right knee pain/cortisone injections PAIN EVALUATION 07/18/2024 0948 Pain Level: 5 Pain Location: Knee-Right Description: Sharp;Throbbing;Dull Duration Amount of Time: 13 Duration Units: Months Frequency: Continuous Intervention/Comfort measure: Medication HISTORY OF PRESENT ILLNESS: Art is here for evaluation of acute on chronic right knee pain He has had multiple issues involving his back but recently started having worsening specific pain to the knee along with knee swelling and tightness Denies recent injury but over a year ago had a big injury to that leg that only injured his back and hip possible cause pain in the knee States between physical therapy, Tylenol, Advil and modifying activities he was seen really good progress and improvement but over the past 6 months his pain has been returning and not responding to those conservative measures He is aware that he has some back issues and sees pain management but they recommended an orthopedic follow-up due to the swelling and pain in the knee REVIEW OF SYMPTOMS: Constitutional: patient denies any recent fever or significant change in weight Gastrointestinal: patient denies any current abdominal discomfort Musculoskeletal: as noted in the HPI Neurologic: as noted in the HPI SOCIAL HISTORY: Tobacco Use: 1.5 packs/day, for 6 years. Quit 09/18/1970. Types: Cigarettes ALLERGIES: ALLERGIES Allergen Reactions Flomax [Tamsulosin * Hives Percocet [Oxycodone* GI Upset Pt gets severe Nausea;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 Barium Sulfate Hives, Itching Pt has had barium multiple times in the past with no reaction. Only reaction one time Carafate [Sucralfat* GI Upset worsening of chest pain and IBS symptoms Penicillins unknown -childhood Erythromycin GI Upset only PO is problematic PAST MEDICAL HISTORY: PAST MEDICAL HISTORY Diagnosis Date Abnormal REM sleep REM dependent ALFONSO Arthritis BPH with obstruction/lower urinary tract symptoms CAD (coronary artery disease) Diabetes (HCC) Diarrhea 05/11/2005 Enthesopathy of hip region 05/11/2005 Esophageal reflux 05/11/2005 Hemorrhage of gastrointestinal tract, unspecified 05/11/2005 History of transfusion Pt thinks maybe w/ his open heart;He possibly had a transfusion IFG (impaired fasting glucose) Intestinal infection due to campylobacter 05/11/2005 Migraine without aura, without mention of intractable migraine without mention of status migrainosus 05/11/2005 Propranolol effective for prevention Motion sickness Nocturnal hypoxemia Diagnosed on PSG Primary hypertension 05/11/2005 PUD (peptic ulcer disease) 1968 conservative tx 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 Vitals: There were no vitals taken for this visit. Skin: Skin color, texture, turgor normal, no suspicious rashes or lesions noted Cardiovascular: no signs of upper or lower extremity edema Psychiatric: mood and affect are appropriate, patient is oriented to time, place and person Neurologic: sensation is grossly intact Lymphatic: no asymetric limb swelling noted General Appearance: Well appearing, alert, in no acute distress, well-hydrated, and well nourished Respiratory: no respiratory distress, no audible wheezing, no labored breathing, symmetric thoracic excursion Right knee(s): Neurovascularly intact No erythema, warmth or breaks in the skin concerning for infection Range of motion appropriate with apprehension and tightness in both extension and flexion 1+ joint effusion No joint laxity or instability Able to stand and ambulate IMAGING: No imaging was performed today. CLINICAL IMPRESSION / ASSESSMENT: (M17.11) Primary osteoarthritis of right knee (primary encounter diagnosis) RECOMMENDATION / PLAN: Follow up- as needed With his joint effusion and pain in the right knee along the joint line I suspect that while he has chronic pain from the back this discomfort particularly is coming from his knee arthritis seen on x-ray. We discussed treatment options and he is interested in a cortisone injection today Tolerated procedure described below well. Large Joint Arthro/Inj: R knee joint Informed Consent Consent Obtained: Verbal [place] Protocol A moment to CARE was completed. SIGN I (more content not included)... Normal [facility] Large Joint Arthro/Inj: R kn ee jointon 07-18-2024 Suzie Ortega PA-C 07/18/2024 11:52 AM Large Joint Arthro/Inj: R knee joint Informed Consent Consent Obtained: Verbal [place] Protocol A moment to CARE was completed. SIGN IN Personnel directly involved with the procedure wore the appropriate PPE. Special Equipment: N/A Patient/Surrogate Stated/Verified: Patient name, Date of , Relevant allergies and Intended procedure TIME OUT Intended patient and procedure match the source document(s). Consent documented and matches the intended procedure. Relevant labs, photos, and/or imaging studies have been reviewed. Correct side/site marked and visible. Medications required for procedure verified. No fire risk assessment and interventions applicable. No implant(s) inserted. 07/18/2024 11:51 AM The procedure site was prepped in the usual sterile fashion. Site: R knee joint Medications: 40 mg triamcinolone acetonide 40 mg/mL Anesthetics: 4 mL lidocaine (PF) 10 mg/mL (1 %) Outcome: Tolerated well, no immediate complications Post-injection instructions were reviewed with the patient and the patient voiced understanding of these instructions. SIGN OUT No specimen collected. All instruments, equipment, possible retained foreign bodies accounted for. Post-procedure follow-up management communicated and Plan of Care Visit completed when applicable [facility] XR KNEE 4V AP/PA BOTH+LAT/ME R RTon 07-18-2024 XR KNEE 4V AP/PA BOTH+LAT/NILAY RT * * *Final Report* * * DATE OF EXAM: Jul 18 2024 9:42AM STX 5203 - XR KNEE 4V AP/PA BOTH+LAT/NILAY RT / PROCEDURE REASON: Pain * * * * Physician Interpretation * * * * HISTORY: Pain . RIGHT KNEE PAIN TECHNIQUE: XR KNEE 4V AP/PA BOTH+LAT/NILAY RT Laterality: RIGHT Number of different views (projections): 4 COMPARISON: None RESULT: Right knee: No acute fracture or dislocation. Mild patellofemoral and minimal medial compartment narrowing with small tricompartmental osteophytes. Small joint effusion and probable mineralized loose bodies overlying the suprapatellar bursa. Anterior knee soft tissue swelling. Included images of left knee demonstrate tricompartmental osteophytes and medial knee/proximal leg surgical clips. IMPRESSION: Mild right knee osteoarthritis. Small joint effusion and probable loose bodies. Anterior knee soft tissue swelling. Physicist Nuclear: BOYD Transcribe Date/Time: Jul 18 2024 1:19P Dictated by : LYNDA MCCLENDON MD This examination was interpreted and the report reviewed and electronically signed by: LYNDA MCCLENDON MD on Jul 18 2024 1:20PM EST [id number] Normal [facility] XR Knee - right 4 Viewson IMPRESSION: Mild right knee osteoarthritis. Small joint effusion and probable loose bodies. Anterior knee soft tissue swelling. Physicist Nuclear: BOYD Transcribe Date/Time: Jul 18 2024 1:19P Dictated by : LYNDA MCCLENDON MD This examination was interpreted and the report reviewed and electronically signed by: LYNDA MCCLENDON MD on Jul 18 2024 1:20PM [facility] DIV[facility] * * *Final Report* * * DATE OF EXAM: Jul 18 2024 9:42AM STX 5203 - XR KNEE 4V AP/PA BOTH+LAT/NILAY RT / PROCEDURE REASON: Pain * * * * Physician Interpretation * * * * HISTORY: Pain . RIGHT KNEE PAIN TECHNIQUE: XR KNEE 4V AP/PA BOTH+LAT/NILAY RT Laterality: RIGHT Number of different views (projections): 4 COMPARISON: None RESULT: Right knee: No acute fracture or dislocation. Mild patellofemoral and minimal medial compartment narrowing with small tricompartmental osteophytes. Small joint effusion and probable mineralized loose bodies overlying the suprapatellar bursa. Anterior knee soft tissue swelling. Included images of left knee demonstrate tricompartmental osteophytes and medial knee/proximal leg surgical clips. DIVISION OF RADIOLOGY Provider, [facility] - 07/18/2024 * * *Final Report* * * DATE OF EXAM: Jul 18 2024 9:42AM STX 5203 - XR KNEE 4V AP/PA BOTH+LAT/NILAY RT / PROCEDURE REASON: Pain * * * * Physician Interpretation * * * * HISTORY: Pain . RIGHT KNEE PAIN TECHNIQUE: XR KNEE 4V AP/PA BOTH+LAT/NILAY RT Laterality: RIGHT Number of different views (projections): 4 COMPARISON: None RESULT: Right knee: No acute fracture or dislocation. Mild patellofemoral and minimal medial compartment narrowing with small tricompartmental osteophytes. Small joint effusion and probable mineralized loose bodies overlying the suprapatellar bursa. Anterior knee soft tissue swelling. Included images of left knee demonstrate tricompartmental osteophytes and medial knee/proximal leg surgical clips. IMPRESSION IMPRESSION: Mild right knee osteoarthritis. Small joint effusion and probable loose bodies. Anterior knee soft tissue swelling. Physicist Nuclear: PSCB Transcribe Date/Time: Jul 18 2024 1:19P Dictated by : LYNDA MCCLENDON MD This examination was interpreted and the report reviewed and electronically signed by: LYNDA MCCLENDON MD on Jul 18 2024 1:20PM EST [place] [facility] Study observation (narrative) [place] XR Knee - right 4 ViewsOrder ed By: [facility] Provider on 07-18-2024 [place] Basophil percentageOrdered B y: Louis Friend on 11-16-2023 Creatinine [Mass/Vol] 1.1 mg/dL 0.70-1.30 [facility] CNPNon 10-12-2023 CNPN Telephone (AGCARDPOB ) TOSHA SPANN W ([id number]) 1945 Date Time Provider Department 10/12/23 EMILIANA ESTEVEZ AGCARDPOB During your visit today, we recorded the following information about you: Kalani Tong RN 10/12/2023 7:21 AM Signed Received signed and completed form from Dr. Estevez for Dr. Thomas. Faxed to [phone]. Scanned faxed confirmation and completed clearance form to [employer]. Kalani Tong RN Allergies As of Date: 10/12/2023 Noted Allergy Reaction FLOMAX (TAMSULOSIN HCL) 06/10/2011 4 - Hives PERCOCET (OXYCODONE-ACETAMINOPHEN) 8 - GI Upset Comments: Pt gets severe Nausea;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 BARIUM SULFATE 03/16/2015 4 - Hives 9 - Itching Comments: Pt has had barium multiple times in the past with no reaction. 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 - traZODone (DESYREL) 50 mg tablet Take 0.5-1 tablets by mouth daily at bedtime. For insomnia and depression - meclizine (ANTIVERT) 25 mg tab TAKE 2 TABLETS BY MOUTH TWICE DAILY NEEDED FOR VERTIGO - ipratropium bromide (ATROVENT) 42 mcg (0.06 %) nasal spray Use 2 Sprays in the nose daily at bedtime. - betamethasone dipropionate, augmented (DIPROLENE) 0.05 % cream APPLY TO HANDS ONCE DAILY AT NIGHT WHEN FLARED, COVER WITH COTTON GLOVES OVERNIGHT - calcium citrate/vitamin D3 (CALCIUM CITRATE + D ORAL) Take 1 tablet by mouth once daily. - ibuprofen (ADVIL) 200 mg tablet Take 400 mg by mouth two times a day. - acetaminophen (TYLENOL) 325 mg cap Take 650 mg by mouth once daily. - Ascorbic Acid (VITAMIN C) 1,000 mg tablet Take 1,000 mg by mouth once daily. - Cranberry 500 mg cap Take 1 capsule by mouth once daily. With vitamin C - fluticasone propionate (FLOVENT INHALATION) Inhale as instructed as needed. - MEDICATION, NON-DATABASE Take 1 tablet by mouth once daily. Beta Sisosterol - loratadine (CLARITIN) 10 mg tablet Take 10 mg by mouth once daily. - L.acidophilus-L.rhamnosus (PROBIOTIC) 15 billion cell capsule Take 1 capsule by mouth once daily. - vitamin B complex (B COMPLEX 1 ORAL) Take 1 tablet by mouth once daily. - multivitamin with minerals (DAILY MULTIVITAMIN-MINERALS) tablet Take 1 tablet by mouth once daily. - melatonin 5 mg tablet Take 5 mg by mouth at bedtime as needed for insomnia. - simethicone (GAS-X ORAL) Take 1 Capful by mouth once daily. - dicyclomine (BENTYL) 20 mg tablet Take 1 tablet by mouth once daily. - rosuvastatin (CRESTOR) 20 mg tablet Take 1 tablet by mouth daily at bedtime. - finasteride (PROSCAR) 5 mg tablet Take 1 tablet by mouth once daily. - metFORMIN ER (GLUCOPHAGE XR) 500 mg 24 hr tablet TAKE 1 TABLET EVERY DAY WITH BREAKFAST - omeprazole (PRILOSEC) 40 mg capsule Take 1 capsule by mouth twice daily. - propranolol ER (INDERAL LA) 120 mg 24 hr capsule Take 1 capsule by mouth once daily. - losartan (COZAAR) 50 mg tablet TAKE 1 TABLET TWICE DAILY - fluticasone (FLONASE) 50 mcg/actuation nasal spray Use 2 Sprays in each nostril once daily as needed. - aspirin 81 mg chewable tablet Take 1 tablet by mouth once daily. - ondansetron (ZOFRAN) 4 mg tablet Take 1 tablet by mouth every 8 hours as needed for nausea/vomiting. - Blood-Glucose Meter 1 Device as directed. Test Three times a day. Before breakfast, lunch and before bedtime. - Blood Glucose Control, Normal soln 1 Ampule as directed. - blood sugar diagnostic test strip Use with blood glucose test 3 times daily, Insulin Dep? No - Lancets lancets Use with blood glucose test 3 times daily. Insulin Dep? No - alcohol swabs Use with blood glucose test 3 times daily. Insulin Dep? No - docusate sodium (COLACE) 100 mg capsule Take 100 mg by mouth once daily. - ipratropium 20 mcg-albuterol 100 mcg (COMBIVENT RESPIMAT) 20-100 mcg/actuation inhaler Inhale 1 Puff as instructed every 6 hours as needed. - promethazine (PHENERGAN) 25 mg tablet Take 1 tablet by mouth every 8 hours as needed. FOR NAUSEA - albuterol HFA (VENTOLIN HFA) 90 mcg/actuation inhaler Inhale 2 Puffs as instructed every 4 hours as needed for Wheezing/Shortness of Breath. Problem List As Of Date 10/12/2023 Noted Resolved SCIATICA [M54.30] 05/11/2005 ENTHESOPATHY OF HIP [M76.899] 05/11/2005 ESOPHAGEAL REFLUX [K21.9] 05/11/2005 Essential hypertension [I10] 04/19 (more content not included)... Normal [facility] ANES POSTPROC EVALon 12 023 ANES POSTPROC EVAL HNO ID: [id number] Author: Holger Gore MD Service: Anesthesiology Author Type: Physician Type: Anesthesia Postprocedure Evaluation Filed: 09/15/2023 8:51 AM Note Text: POST ANESTHESIA EVALUATION NOTE : 1945 Procedure Summary Date: 09/14/23 Room / Location: [place] Anesthesia Start: 1154 Anesthesia Stop: 1249 Procedure: CYSTOSCOPY, RESECTION PROSTATE TRANSURETHRAL (Prostate) Diagnosis: BPH with obstruction/lower urinary tract symptoms (BPH with obstruction/lower urinary tract symptoms [N40.1, N13.8]) Surgeons: Cipriano Thomas Jr., MD Responsible Provider: Holger Gore MD Anesthesia Type: general ASA Status: 3 Anesthesia Type: general Airway Type: LMA Last Vitals Vitals Value Taken Time BP 155/86 09/14/23 1330 Temp 36.1 ?C (97 ?F) 09/14/23 1315 HR SpO2 49 09/14/23 1329 Resp 12 09/14/23 1329 SpO2 98 % 09/14/23 1329 Vitals shown include unfiled device data. Post Anesthesia Patient Status Patient Evaluation: PACU. PACU/ICU Patient Condition: stable. Anticipated Disposition: inpatient floor planned admission. Neurological Status: aware and responsive. Pulmonary Status: breathing comfortably on supplemental oxygen Airway Control: returned to baseline unsupported. Cardiovascular Status: stable. Pain Management: clinically adequate Postoperative Hydration: acceptable. Intraoperative Events: no significant anesthesia events Post Operative Nausea/Vomiting Status: no significant post operative nausea or vomiting Recommendation: continue current plan of care and further care per PACU/ICU/floor team. Anesthesia Observations No Documentation SIGNATURE: Holger Gore MD PATIENT NAME: Tosha Spann DATE: September 15, 2023 TIME: 8:50 AM CSN: [id number] [facility] HNO [facility]: [id number] Author: Tom Salazar MD Service: Urology Author Type: Resident Type: Discharge Summary Filed: 09/15/2023 10:49 AM Note Text: Attestation signed by Cipriano Thomas Jr., MD at 09/19/2023 5:47 PM Discussed with the resident and agree with resident's findings and plan as documented in the resident's note. Cipriano Thomas Jr, MD UROLOGY DISCHARGE SUMMARY PATIENT NAME: Tosha Spann ADMISSION DATE: 09/14/2023 DISCHARGE DATE: 09/15/2023 Attending Physician: Cipriano Thomas Jr.* Reason for Hospitalization: Principal Problem: BPH with obstruction/lower urinary tract symptoms (POA: Yes) Resolved Problems: * No resolved hospital problems. * Operations During Hospitalization: TURP on 09/14 Hospital Course: Patient was admitted for the above surgery. Patient was transferred to the recovery unit and then to the regular nursing floor. Diet was slowly advanced as tolerated. Activity level was gradually increased. Pain was controlled on oral medications. The patient was then deemed fit for discharge. Casiano was removed prior to discharge. Labs and Procedures Pending at Discharge: No pending results. Consulting Teams During Hospitalization: none Patient Condition @ Discharge: Stable Discharge Disposition: Home with Self Care Information Provided to Patient: See discharge instructions Discharge Medications: Medication List ASK your doctor about these medications AdviL 200 mg tablet Generic drug: ibuprofen albuterol HFA 90 mcg/actuation inhaler Commonly known as: VENTOLIN HFA Inhale 2 Puffs as instructed every 4 hours as needed for Wheezing/Shortness of Breath. alcohol swabs Use with blood glucose test 3 times daily. Insulin Dep? No aspirin 81 mg chewable tablet Take 1 tablet by mouth once daily. B COMPLEX 1 ORAL betamethasone dipropionate, augmented 0.05 % cream Commonly known as: DIPROLENE Blood Glucose Control, Normal Soln 1 Ampule as directed. blood sugar diagnostic test strip Use with blood glucose test 3 times daily, Insulin Dep? No Blood-Glucose Meter 1 Device as directed. Test Three times a day. Before breakfast, lunch and before bedtime. CALCIUM CITRATE + D ORAL CLARITIN 10 mg tablet Generic drug: loratadine COMBIVENT RESPIMAT 20-100 mcg/actuation inhaler Generic drug: ipratropium 20 mcg-albuterol 100 mcg Inhale 1 Puff as instructed every 6 hours as needed. Cranberry 500 mg Cap DAILY MULTIVITAMIN-MINERALS tablet Generic drug: multivitamin with minerals dicyclomine 20 mg tablet Commonly known as: BENTYL Take 1 tablet by mouth once daily. docusate sodium 100 mg capsule Commonly known as: COLACE finasteride 5 mg tablet Commonly known as: PROSCAR Take 1 tablet by mouth once daily. * FLOVENT INHALATION * fluticasone 50 mcg/actuation nasal spray Commonly known as: FLONASE Use 2 Sprays in each nostril once daily as needed. GAS-X ORAL ipratropium bromide 42 mcg (0.06 %) nasal spray Commonly known as: ATROVENT Ask about: Which instructions should I use? Lancets lancets Use with blood glucose test 3 times daily. Insulin Dep? No losartan 50 mg tablet Commonly known as: COZAAR TAKE 1 TABLET TWICE DAILY meclizine 25 mg Tab Commonly known as: ANTIVERT MEDICATION, NON-DATABASE melatonin 5 mg tablet metFORMIN ER 500 mg 24 hr tablet Commonly known as: GLUCOPHAGE XR TAKE 1 TABLET EVERY DAY WITH BREAKFAST omeprazole 40 mg capsule Commonly known as: PriLOSEC Take 1 capsule by mouth twice daily. ondansetron 4 mg tablet Commonly known as: ZOFRAN Take 1 tablet by mouth every 8 hours as needed for nausea/vomiting. PROBIOTIC 15 billion cell capsule Generic drug: L.acidophilus-L.rhamnosus promethazine 25 mg tablet Commonly known as: PHENERGAN Take 1 tablet by mouth every 8 hours as needed. FOR NAUSEA propranolol ER 120 mg 24 hr capsule Commonly known as: INDERAL LA Take 1 capsule by mouth once daily. rosuvastatin 20 mg tablet Commonly known as: CRESTOR Take 1 tablet by mouth daily at bedtime. traZODone 50 mg tablet Commonly known as: DESYREL Take 0.5-1 tablets by mouth daily at bedtime. For insomnia and depression TylenoL 325 mg Cap Generic drug: acetaminophen VITAMIN C 1,000 mg tablet Generic drug: Ascorbic Acid * This list has 2 medication(s) that are the same as other medications prescribed for you. Read the directions carefully, and ask your doctor or other care provider to review them with you. Future Appointments: Follow Up with Dr. Thomas will be arranged TIME OF CARE: Discharge Management: I personally spent less than 30 minutes involved in the discharge management of this patient. Tom Salazar MD PGY1 Urology #[id number] 10:49 AM 09/15/23 [facility] ANES PRE-OPon 09-14-2023 ANES PRE-OP HNO ID: [id number] Author: Holger Gore MD Service: Anesthesiology Author Type: Physician Type: Anesthesia Preprocedure Evaluation Filed: 09/14/2023 9:39 AM Note Text: ANESTHESIOLOGY DAY OF SURGERY NOTE : 1945 Procedure Information Date/Time: 09/14/23 1030 Procedure: CYSTOSCOPY, RESECTION PROSTATE TRANSURETHRAL (Prostate) Location: [place] OR 19 / [place] Surgeons: Cipriano Thomas Jr., MD Estimated body mass index is 24.84 kg/m? as calculated from the following: Height as of 09/05/23: 175.3 cm (5' 9). Weight as of 09/05/23: 76.3 kg (168 lb 3.2 oz). Most recent hematocrit and potassium results: Hematocrit 40.0 08/23/2023 Hematocrit (POCT) 28 10/25/2021 Potassium 4.2 08/23/2023 Potassium (POCT) 3.4 10/25/2021 Relevant Problems ANESTHESIA (+) ALFONSO (obstructive sleep apnea), REM dependent CARDIO (+) Ascending aorta dilatation (HCC) (+) CAD (coronary artery disease) (+) Sau[place]a angioma (+) Essential hypertension (+) Migraine without aura, without mention of intractable migraine without mention of status migrainosus (+) S/P CABG x 3 (+) SVT (supraventricular tachycardia) (+) Stable angina pectoris ENDO (+) Type 2 diabetes mellitus without complication, without long-term current use of insulin (HCC) GI (+) Esophageal reflux NEURO-PSYCH (+) Migraine without aura, without mention of intractable migraine without mention of status migrainosus PULMONARY (+) Mucopurulent chronic bronchitis (HCC) (+) ALFONSO (obstructive sleep apnea), REM dependent Nephrology (+) BPH (benign prostatic hypertrophy) with urinary obstruction Rheumatology (+) DDD (degenerative disc disease), cervical spinal cord stim in place- turned off prior to OR S/p cabg in 2021 doing well Hx of paraesophageal hernia repair X 2,with inability to vomit I - PHYSICAL EVALUATION AIRWAY Patient intubated: No. Tracheostomy tube not present Mallampati: II. TM distance: >3 FB. Neck ROM: full ROM without neurological symptoms. Mouth opening: adequate. Short neck: no. Thick neck: no DENTAL Dental findings: teeth intact. II - ANESTHESIA PLAN ASA Score: 3 Anesthetic Plan: general Airway type: LMA The patient is not a current smoker. NPO Status: adequate Anesthetic plan additional comments: Spinal cord stim off. Beta Kiersten Monitoring Plan Monitoring plan: standard ASA. Post Procedure Analgesic Plan Postoperative analgesic plan: multimodal analgesia. Informed Consent Anesthetic risks, benefits, alternatives, personnel and consent discussed: yes. Patient / Responsible Libertarian agrees to proceed: yes Patient / Surrogate agrees to blood products: Yes Potential Anesthesia issues that may suggest increased risk of complications or contraindication to planned procedure: none. Vitals Value Taken Time BP 169/93 09/14/23 0919 Pulse 68 09/14/2315 Resp 20 09/14/23914 Temp 35.7 ?C (96.3 ?F) 09/14/23914 SpO2 100 % 09/14/23914 Facility-Administered Medications as of 09/14/2023 Medication Dose Route Frequency - lidocaine 10 mg/mL (1 %) 1-2 mg injection (XYLOCAINE) 0.1-0.2 mL INTRADERMAL PRN - lactated ringers iv infusion 5-30 mL/hr INTRAVENOUS CONTINUOUS - NaCl 0.9% iv flush bag 20 mL INTRAVENOUS PRN - [COMPLETED] acetaminophen 975 mg tab(s) (TYLENOL) 975 mg ORAL Pre-Op Once - [COMPLETED] celecoxib 400 mg cap(s) (CeleBREX) 400 mg ORAL Pre-Op Once Outpatient Medications as of 09/14/2023 Medication Sig - acetaminophen (TYLENOL) 325 mg cap Take 650 mg by mouth once daily. - fluticasone propionate (FLOVENT INHALATION) Inhale as instructed as needed. - L.acidophilus-L.rhamnosus (PROBIOTIC) 15 billion cell capsule Take 1 capsule by mouth once daily. - melatonin 5 mg tablet Take 5 mg by mouth at bedtime as needed for insomnia. - dicyclomine (BENTYL) 20 mg tablet Take 1 tablet by mouth once daily. - rosuvastatin (CRESTOR) 20 mg tablet Take 1 tablet by mouth daily at bedtime. - finasteride (PROSCAR) 5 mg tablet Take 1 tablet by mouth once daily. - traZODone (DESYREL) 50 mg tablet Take 0.5-1 tablets by mouth daily at bedtime. For insomnia and depression - omeprazole (PRILOSEC) 40 mg capsule Take 1 capsule by mouth twice daily. - propranolol ER (INDERAL LA) 120 mg 24 hr capsule Take 1 capsule by mouth once daily. - losartan (COZAAR) 50 mg tablet TAKE 1 TABLET TWICE DAILY - aspirin 81 mg chewable tablet Take 1 tablet by mouth once daily. - meclizine (ANTIVERT) 25 mg tab TAKE 2 TABLETS BY MOUTH TWICE DAILY NEEDED FOR VERTIGO - ipratropium bromide (ATROVENT) 42 mcg (0.06 %) nasal spray Use 2 Sprays in the nose daily at bedtime. - betamethasone dipropionate, augmented (DIPROLENE) 0.05 % cream APPLY TO HANDS ONCE DAILY AT NIGHT WHEN FLARED, COVER WITH COTTON GLOVES OVERNIGHT - calcium citrate/vitamin D3 (CALCIUM CITRATE + D ORAL) Take 1 tablet by mouth once daily. - ibuprofen (ADVIL) 200 mg tablet Take 400 mg by mouth two times a day. - (more content not included)... Normal [facility] 09-14-2023 [facility] Telephone (AKURFL) TOSHA SPANN ([id number]) 1945 M Date Time Provider Department 09/14/23 CIPRIANO THOMAS JR During your visit today, we recorded the following information about you: Cipriano Thomas Jr., MD 09/14/2023 12:51 PM Signed [facility] or 09/14/23 Fu with me 4 weeks Katy Petra 09/14/2023 2:10 PM Signed Patient still in hospital. Called, unable to leave message/mailbox full--sent [employer] message with following information: Patient scheduled (4) week post-op/follow up 10/10/23 at 1:15pm, [facility] location. Thank you Petra Allergies As of Date: 09/14/2023 Noted Allergy Reaction FLOMAX (TAMSULOSIN HCL) 06/10/2011 4 - Hives PERCOCET (OXYCODONE-ACETAMINOPHEN) 8 - GI Upset Comments: Pt gets severe Nausea;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 BARIUM SULFATE 03/16/2015 4 - Hives 9 - Itching Comments: Pt has had barium multiple times in the past with no reaction. Only reaction one time CARAFATE (SUCRALFATE) 04/23/2015 8 - GI Upset Comments: worsening of chest pain and IBS symptoms PENICILLINS 05/11/2005 Comments: unknown -childhood ERYTHROMYCIN 05/11/2005 8 - GI Upset Comments: only PO is problematic Date Reviewed: 09/14/2023 Reviewed by: Jazmine Grant RN - Fully Assessed Reason for Visit: Appointment [[id number]] Prescriptions as of 09/14/2023 - meclizine (ANTIVERT) 25 mg tab TAKE 2 TABLETS BY MOUTH TWICE DAILY NEEDED FOR VERTIGO - ipratropium bromide (ATROVENT) 42 mcg (0.06 %) nasal spray Use 2 Sprays in the nose daily at bedtime. - betamethasone dipropionate, augmented (DIPROLENE) 0.05 % cream APPLY TO HANDS ONCE DAILY AT NIGHT WHEN FLARED, COVER WITH COTTON GLOVES OVERNIGHT - calcium citrate/vitamin D3 (CALCIUM CITRATE + D ORAL) Take 1 tablet by mouth once daily. - ibuprofen (ADVIL) 200 mg tablet Take 400 mg by mouth two times a day. - acetaminophen (TYLENOL) 325 mg cap Take 650 mg by mouth once daily. - Ascorbic Acid (VITAMIN C) 1,000 mg tablet Take 1,000 mg by mouth once daily. - Cranberry 500 mg cap Take 1 capsule by mouth once daily. With vitamin C - fluticasone propionate (FLOVENT INHALATION) Inhale as instructed as needed. - MEDICATION, NON-DATABASE Take 1 tablet by mouth once daily. Beta Sisosterol - loratadine (CLARITIN) 10 mg tablet Take 10 mg by mouth once daily. - L.acidophilus-L.rhamnosus (PROBIOTIC) 15 billion cell capsule Take 1 capsule by mouth once daily. - vitamin B complex (B COMPLEX 1 ORAL) Take 1 tablet by mouth once daily. - multivitamin with minerals (DAILY MULTIVITAMIN-MINERALS) tablet Take 1 tablet by mouth once daily. - melatonin 5 mg tablet Take 5 mg by mouth at bedtime as needed for insomnia. - simethicone (GAS-X ORAL) Take 1 Capful by mouth once daily. - dicyclomine (BENTYL) 20 mg tablet Take 1 tablet by mouth once daily. - rosuvastatin (CRESTOR) 20 mg tablet Take 1 tablet by mouth daily at bedtime. - finasteride (PROSCAR) 5 mg tablet Take 1 tablet by mouth once daily. - metFORMIN ER (GLUCOPHAGE XR) 500 mg 24 hr tablet TAKE 1 TABLET EVERY DAY WITH BREAKFAST - traZODone (DESYREL) 50 mg tablet Take 0.5-1 tablets by mouth daily at bedtime. For insomnia and depression - omeprazole (PRILOSEC) 40 mg capsule Take 1 capsule by mouth twice daily. - propranolol ER (INDERAL LA) 120 mg 24 hr capsule Take 1 capsule by mouth once daily. - losartan (COZAAR) 50 mg tablet TAKE 1 TABLET TWICE DAILY - fluticasone (FLONASE) 50 mcg/actuation nasal spray Use 2 Sprays in each nostril once daily as needed. - aspirin 81 mg chewable tablet Take 1 tablet by mouth once daily. - ondansetron (ZOFRAN) 4 mg tablet Take 1 tablet by mouth every 8 hours as needed for nausea/vomiting. - Blood-Glucose Meter 1 Device as directed. Test Three times a day. Before breakfast, lunch and before bedtime. - Blood Glucose Control, Normal soln 1 Ampule as directed. - blood sugar diagnostic test strip Use with blood glucose test 3 times daily, Insulin Dep? No - Lancets lancets Use with blood glucose test 3 times daily. Insulin Dep? No - alcohol swabs Use with blood glucose test 3 times daily. Insulin Dep? No - docusate sodium (COLACE) 100 mg capsule Take 100 mg by mouth once daily. - ipratropium 20 mcg-albuterol 100 mcg (COMBIVENT RESPIMAT) 20-100 mcg/actuation inhaler Inhale 1 Puff as instructed every 6 hours as needed. - promethazine (PHENERGAN) 25 mg tablet Take 1 tablet by mouth every 8 hours as needed. FOR NAUSEA - albuterol HFA (VENTOLIN HFA) 90 mcg/actuation inhaler Inhale 2 Puffs as instructed every 4 hours as needed for Wheezing/Shortness of Breath. Facility-Administered Medications as of 09/14/2023 - dicyclomine 20 mg tab(s) (BENTYL) - metFORMIN ER 500 mg tab(s) (GLUCOPHAGE XR) - rosuvastatin 20 mg tab(s) (CRESTOR) - losartan 50 mg tab(s) (COZ (more content not included)... [facility] OPERATIVE NOon 09-14-2023 OPERATIVE NO HNO ID: [id number] Author: Pamela Glass MD Service: Urology Author Type: Resident Type: Operative Report Filed: 09/14/2023 12:45 PM Note Text: Attestation signed by Cipriano Thomas Jr., MD at 09/14/2023 12:50 PM I was present for the entire procedure and directly participated in the critical and hopkins portions of the surgery. I was immediately available to provide assistance throughout the entire case. Cipriano Thomas Jr, MD UROLOGY OPERATIVE/PROCEDURE REPORT LOG ID: [id number] Surgery/Procedure Date: 09/14/2023 Incision/Procedure Start Time: 12:08 PM Incision Close/Procedure End Time: 12:33 PM Surgeon(s)/Proceduralist(s) and Engineering Psychologist(s): Surgeon(s) and Role: * Cipriano Thomas Jr., MD - Primary * Kinza Maria MD - Resident - Assisting No Additional Staff Procedure(s): Cystoscopy, Transurethral resection of prostate- bipolar loop Anesthesia: General Pre-Op/Pre-Procedure Diagnosis: BPH Post-Op/Post-Procedure Diagnosis: Same Estimated Blood Loss: <20cc Specimens: prostate chips Implantable Devices: None Drains: 24F casiano Complications: None Procedure Details: Indications This is a 78 year old pt who presents with BPH with obstruction. After a thorough discussion of his risks, benefits and treatment options he does wish to proceed forward with surgical intervention. Operation Patient was brought to the operating room. A thorough time out was performed and all present were in agreement. Patient was placed on OR table and anesthesia induced. Airways and lines were maintained by anesthesia team. Patient was placed into dorsal lithotomy position. Pressure points were padded. Prepped and draped in usual sterile fashion. A 21 fr ACMI cystourethroscope was inserted through the male urethra. The entire bladder was inspected using a 30 degree angled lens. The bladder was extremely trabeculated. The prostatic urethra had significant bilobar obstruction. Bilateral ureteral orifices were in normal anatomic position. Next the cystourethroscope was exchanged for a continuous flow resectoscope sheath. This was placed using the visual obturator. Using the bipolar loop, the prostate was resected carefully. This was begun starting at the bladder neck working distally to the verumontanum. Starting at the 6 o'clock position this was done to create a trough. Care was taken to avoid resection distally to the verumontanum to avoid injury to the external urethral sphincter. Next the bilateral lateral lobes were resected down to the prostatic capsule. Hemostasis was maintained during the procedure using the cautery function. Lastly the anterior tissue was resected down to the level of the prostatic capsule. After achieving hemostasis the bladder was irrigated and all debris was evacuated from the bladder. On re-inspection, any bleeding was point cauterized until hemostasis was excellent. The resectoscope was withdrawn and a 24 F casiano catheter with 30 ml balloon was inserted. The bladder was irrigated and the urine found to be light pink/ clear. The patient tolerated the procedure well and was transported to the recovery room. The primary surgeon/proceduralist performed the procedure with assistance. Pamela Glass MD Urology PGY-3 Pager #[phone] 09/14/2023 12:45 PM Normal [facility] SURGICAL PATHOLOGYon 023 CASE REPORT Normal [facility] Comment on above: Order Comment: Speci men Type: TISSUE SPECIMEN Ordering Facility: [facility] Address: [address] [place] [address] Result Comment: Surg [facility] Pathology Report Case: [id number] Authorizing Provider: Cipriano Thomas Jr., Collected: 09/14/2023 12:14 PM Ordering Location: [facility] Received: 09/14/2023 01:11 PM Pathologist: Antonio Solorzano MD Specimen: PROSTATE TISSUE (CHIPS), prostate chips. Performed By: #### S #### [facility] CLIA [id number] [address] [place] [address] CLINICAL HISTORY Normal [facility] Comment on above: Order Comment: Speci men Type: TISSUE SPECIMEN Ordering Facility: [facility] Address: [address] [place] [address] Result Comment: Pre- op diagnosis: BPH with obstruction/lower urinary tract symptoms [N40.1, N13.8] Performed By: #### S #### [facility] CLIA [id number] [address] [place] [address] FINAL DIAGNOSIS [facility] Comment on above: Order Comment: Speci men Type: TISSUE SPECIMEN Ordering Facility: [facility] Address: [address] [place] [address] Result Comment: Vishal martini, transurethral resection: - Benign prostatic tissues. Performed By: #### S #### [facility] CLIA [id number] [address] [place] [address] FINAL PERFORMING LAB [facility] Comment on above: Order Comment: Speci men Type: TISSUE SPECIMEN Ordering Facility: [facility] Address: [address] [place] [address] Result Comment: Diag nostic interpretation performed at [facility], [address] [place] [address] CLIA# [id number] Hospice Nurse: Alex Mc M.D. Performed By: #### S #### [facility] CLIA [id number] [address] [place] [address] GROSS DESCRIPTION Normal [facility] Comment on above: Order Comment: Speci men Type: TISSUE SPECIMEN Ordering Facility: [facility] Address: [address] [place] [address] Result Comment: A. P ROSTATE TISSUE (CHIPS) Received in formalin labeled as prostate tissue (chips) are multiple irregular fragments of tissue averaging approximately 5 x 4 x 4 cm with an aggregate weight of 14 g. The fragments are vaughn-white and rubbery. Academic Advisor sections are submitted in 8 cassettes. Gross examination performed at [facility], [address] [place] [address] CLIA#[id number] [facility] September 14, 2023 2:43 PM Performed By: #### S #### [facility] CLIA [id number] [address] [place] [address] Bacteria Ur Culton 3 Bacteria identified Cx Nom (U) CULTURE, URINE: No growth (<1,000 CFU/ml) Normal [facility] Comment on above: Performed By: #### 6 30-4 #### [facility] CLIA [id number] [address] [place] [address] HISTORY PHYSICALon 3 HISTORY PHYSICAL HNO ID: [id number] Author: Rachael Marroquin APRN.RESPITE WORKER Service: ? Author Type: Nurse Practitioner Type: HANDP Filed: 09/05/2023 4:14 PM Note Text: HISTORY AND PHYSICAL EXAMINATION SERVICE DATE: 09/05/2023 SERVICE TIME: 2:20 PM PRIMARY CARE PHYSICIAN: Nevin Marquez MD Assessment Patient has the following medical conditions which may affect hilda-operative course: Preop testing Assessment : See Note for medical conditions which may affect hilda-operative course was addressed in visit today. CAD (coronary artery disease) Assessment: Followed by Cardiology Dr. Estevez - s/p CABG - [facility] 01/02/2023 -denies use of aspirin at this time. 08/23/2021 Echo Impression CONCLUSIONS: - Exam indication: CAD - The left ventricle is normal in size. There is mild septal left ventricular hypertrophy. Left ventricular systolic function is normal. EF = 67 ? 5% (2D biplane) Grade I left ventricular diastolic dysfunction. - The right ventricle is normal in size. Right ventricular systolic function is normal. - The visualized aorta is borderline dilated with a maximal dimension of 4.0 cm. - There is mild (1+) mitral valve regurgitation. - There is mild (1+) aortic valve regurgitation. - Exam was compared with the prior echocardiographic exam performed on 05/04/2021. There is no significant change. Mixed hyperlipidemia Assessment: Taking rosuvastatin 20 mg daily at bedtime Essential hypertension Assessment: Taking losartan Plan: Patient instructed to take day of surgery. SVT (supraventricular tachycardia) (HCC) Assessment: Taking propranolol Plan: Patient instructed to take day of surgery. ALFONSO (obstructive sleep apnea), REM dependent Assessment: Patient reports use of CPAP. ESOPHAGEAL REFLUX Assessment: Taking omeprazole BPH (benign prostatic hypertrophy) with urinary obstruction See HPI Type 2 diabetes mellitus without complication, without long-term current use of insulin (HCC) Assessment: Followed by PCP-taking metformin Plan: Patient instructed to hold day of surgery. Ascending aorta dilatation (HCC) Assessment: Last echocardiogram 08/23/2021 demonstrated The visualized aorta is borderline dilated with a maximal dimension of 4.0 cm. Gonzalez Activity Status Index: METS: Climb a flight of stairs or walk up a hill (5.50 METs) DASI Score: 5.5 Patient denies any chest pain or undue shortness of breath with the above physical activity. Clinical Frailty Scale: 3. Well, with treated comorbid disease ARISCAT Score: Age: 51-80 Preoperative SpO2: >=96% Respiratory infection in the last month: No Preoperative anemia: No Surgical incision: peripheral Duration of surgery: <2 hrs Emergency procedure: No ARISCAT Score: 3 ANESTHESIA FINDINGS: Intubation History: No history of difficult intubation Significant Anesthesia Considerations: none Airway History: No history of difficult airway I - PHYSICAL EVALUATION AIRWAY Patient intubated: No. DENTAL Additional comments: + Patient reports multiple missing teeth. II - ANESTHESIA PLAN Anesthetic Plan: general Beta Kiersten Monitoring Plan Post Procedure Analgesic Plan REASON FOR VISIT: Tosha Spann is a 78 year old male who is scheduled for Procedure(s): CYSTOSCOPY, RESECTION PROSTATE TRANSURETHRAL (N/A) at the request of Dr. Cipriano Thomas Jr. for routine HANDP. My final recommendation will be communicated back to the requesting physician by way of shared medical record or letter. The reason for this visit is to perform a comprehensive review of the patient's past medical history, assess their current health status and obtain any additional testing required based on anesthesia guidelines. We will also identify any potential anesthesia problems or contraindications to the planned procedure. Subjective The patient has the following: ACTIVE PROBLEM LIST Sciatica Enthesopathy of Hip Region Esophageal Reflux Essential Hypertension Migraine Without Aura, Without Mention of Intractable Migraine Without Mention of Status Migrainosus Diarrhea Hemorrhage of Gastrointestinal Tract, Unspecified Intestinal Infection Due to Campylobacter Myalgia and Myositis, Unspecified Esophagitis, Unspecified Bladder Neck Obstruction Hypertrophy of Prostate With Urinary Obstruction and Other Lower Urinary Tract Symptoms (Luts) Impotence of Organic Origin Mixed Hyperlipidemia Other Malaise and Fatigue Osteoporosis, Unspecified Hyperglycemia Osteoarthritis Contracture of Palmar Fascia Pain in Limb Viral Warts Inflamed Seborrheic Keratosis Other Seborrheic Keratosis Solar Lentigines Actinic Skin Damage Xerosis Cutis Sauceda Angioma Elevated Psa Ddd (Degenerative Disc Disease), Cervical Bph (Benign Prostatic Hypertrophy) With Urinary Obstruction Sensorineural Hearing Loss, Bilateral ALFONSO ( (more content not included)... Normal [facility] NURSING PROGon 09-04-2023 NURSING PROG HNO ID: [id number] Author: Kristina López, RN Service: Nursing Author Type: Registered Nurse Type: Nursing Progress Note Filed: 09/04/2023 10:58 AM Note Text: Does patient want another opportunity to revisit surgical decision with surgeon prior to surgery? No If yes, message sent to surgeon. N/A [facility] UA DIP, URINE (POC)on 2022 BILIRUBIN UA (POCT) Negative Negative [facility] CLARITY UA (POCT) Clear [facility] COLOR UA (POCT) Yellow [place] GLUCOSE UA (POCT) Negative Negative mg/dL [place] Hemoglobin Ql (U) Negative Negative [facility] KETONE UA (POCT) Negative Negative mg/dL [place] LEUKOCYTES UA (POCT) Trace Abnormal Negative [facility] NITRITE UA (POCT) Negative Negative [facility] PH UA (POCT) 6.0 4.5 - 8.0 [place] Protein Ql (U) Negative Negative mg/dL [place] SPECIFIC GRAVITY UA (POCT) 1.025 1.005 - 1.030 [place] UROBILINOGEN UA (POCT) 0.2 E.U./dL Normal E.U./dL [place] UA DIP, URINE (POC)on 2022 BILIRUBIN UA (POCT) Negative Negative [facility] CLARITY UA (POCT) Clear [facility] COLOR UA (POCT) Yellow [place] GLUCOSE UA (POCT) Negative Negative mg/dL [place] Hemoglobin Ql (U) Negative Negative [facility] KETONE UA (POCT) Negative Negative mg/dL [place] LEUKOCYTES UA (POCT) Negative [facility] ([facility]) Negative Negative [facility] PH UA (POCT) 6.0 4.5 - 8.0 [place] Protein Ql (U) Negative Negative mg/dL [place] SPECIFIC GRAVITY UA (POCT) 1.015 1.005 - 1.030 [place] UROBILINOGEN UA (POCT) 0.2 E.U./dL Normal E.U./dL [place] Basophil percentageOrdered B y: Dr. Fabian on 02-14-2023 Bilirubin [Mass/Vol] 0.80 mg/dL 0.20-1.00 [facility] Comment on above: For patients on eltr ombopag therapy, use of Dimension [place] TBIL is not recommended. Chloride [Moles/Vol] 102 mmol/L 98-107 [facility] Glucose [Mass/Vol] 95 mg/dL 74-106 [facility] Potassium [Moles/Vol] 4.3 mmol/L 3.5-5.1 [facility] Protein [Mass/Vol] 7.4 g/dL 6.4-8.2 [facility] Sodium [Moles/Vol] 135 mmol/L 136-145 [facility] WBC (Bld) [#/Vol] 6.1 10*3/uL 4.4-11.0 [facility] Blood erythrocytes count (nu mber/volume)Ordered By: Dr. Fabian on 02-14-2023 RBC (Bld) [#/Vol] 4.22 10*6/uL 4.6-6.2 [facility] Blood hemoglobin measurement (mass/volume)Ordered By: Dr. Fabian on 02-14-2023 Hemoglobin (Bld) [Mass/Vol] 13.2 g/dL 13.0-16.5 [facility] Blood platelet mean volumeOr dered By: Dr. Fabian on 02-14-2023 Platelet mean volume (Bld) [Entitic vol] 9.2 fL 6.2-12.0 [facility] Determination of erythrocyte mean corpuscular volume (MCV)Ordered By: Dr. Fabian on 02-14-2023 MCV (RBC) [Entitic vol] 92.4 fL 80-94 [facility] Hematocrit Auto (Bld) [Volum e fraction]Ordered By: Dr. Fabian on 02-14-2023 Hematocrit (Bld) [Volume fraction] 39.0 % 40-54 [facility] Laboratory - Chemistry and C hemistry - challengeOrdered By: Dr. Fabian on 02-14-2023 ALP [Catalytic activity/Vol] 38 U/L 45-117 [facility] ALT [Catalytic activity/Vol] 25 U/L 16-61 [facility] CO2 [Moles/Vol] 27.0 mmol/L 21.0-32.0 [facility] Globulin (S) [Mass/Vol] 3.1 g/dL 2.2-4.2 [facility] Urea nitrogen/Creatinine [Mass ratio] 21.5 mg/mg 10-20 [facility] Laboratory - Hematology and Cell countsOrdered By: Dr. Fabian on 02-14-2023 Erythrocyte distribution width (RBC) [Entitic vol] 42.7 fL 35.1-43.9 [facility] Erythrocyte distribution width (RBC) [Ratio] 12.7 % 11.6-14.6 [facility] MCH (RBC) [Entitic mass] 31.3 pg 27.0-32.0 [facility] MCHC Auto (RBC) [Mass/Vol]Or dered By: Dr. Fabian on 02-14-2023 MCHC (RBC) [Mass/Vol] 33.8 g/dL 32-36 [facility] No Panel InformationOrdered By: Dr. Fabian on 02-14-2023 Estimated GFR (MDRD) Amer 96 mL/min >60 [facility] Comment on above: GFR Calc Estimated GFR (MDRD) Non-Af Amer 80 mL/min >60 [facility] Comment on above: Non- GFR Calc Platelets bldOrdered By: Dr. Fabian on 02-14-2023 Platelets (Bld) [#/Vol] 262 10*3/uL 150-450 [facility] Serum or plasma albumin eliazar urement (mass/volume)Ordered By: Dr. Fabian on 02-14-2023 Albumin [Mass/Vol] 4.3 g/dL 3.2-5.0 [facility] Serum or plasma albumin/glob ulin mass ratioOrdered By: Dr. Fabian on 02-14-2023 Albumin/Globulin [Mass ratio] 1.4 {ratio} 0.9-2.4 [facility] Serum or plasma calcium eliazar urement (mass/volume)Ordered By: Dr. Fabian on 02-14-2023 Calcium [Mass/Vol] 8.9 mg/dL 8.5-10.1 [facility] Serum or plasma creatinine m easurement (mass/volume)Ordered By: Dr. Fabian on 02-14-2023 Creatinine [Mass/Vol] 0.98 mg/dL 0.70-1.30 [facility] Comment on above: The validity of the calculated GFR & GFRAA in patients over 70 years has not been determined. Clinical correlation is essential. Serum or plasma urea nitroge n measurement (mass/volume)Ordered By: Dr. Fabian on 02-14-2023 Urea nitrogen [Mass/Vol] 21 mg/dL 7-18 [facility] Thin prep Papanicolaou smear with manual screeningOrdered By: Dr. Fabian on 02-14-2023 Thin prep Papanicolaou smear with manual screening 19 U/L 15-37 [facility] Thin prep Papanicolaou smear with manual screening 6 5-15 [facility] Whole blood hemoglobin A1c/t otal hemoglobin ratio (mass fraction)Ordered By: Dr. Fabian on 02-14-2023 HbA1c (Bld) [Mass fraction] 6.0 % 3.8-5.6 [facility] Comment on above: Normal < 5.7 % Predi abetic 5.7 - 6.4 % Diabetic >or= 6.5 % Please note range changes. Absolute lymphocyte counton 07-16-2022 Lymphocytes Auto (Unsp spec) [#/Vol] 1.02 10*3/uL 0.83-4.51 [facility] [place] Work Phone: Basophil percentageon 2021 Basophils/100 WBC (Bld) 0.4 % 0-1 [facility] [place] Work Phone: Bilirubin [Mass/Vol] 0.60 mg/dL 0.20-1.00 [facility] Work Phone: Comment on above: For patients on eltr ombopag therapy, use of Dimension [place] TBIL is not recommended. Chloride [Moles/Vol] 99 mmol/L 98-107 [facility] Work Phone: Eosinophils/100 WBC (Bld) 2.6 % 0-5 [facility] [place] Work Phone: Glucose [Mass/Vol] 107 mg/dL 74-106 [facility] Work Phone: Comment on above: Fasting Glucose resu lt from 100 to 125 mg/dL suggests IMPAIRED HOMEOSTASIS per A.D.A. criteria. Neutrophils (Bld) [#/Vol] 9.2 10*3/uL 2.0-7.7 [facility] [place] Work Phone: Neutrophils/100 WBC (Bld) 80.7 % 47-70 [facility] [place] Work Phone: Potassium [Moles/Vol] 4.5 mmol/L 3.5-5.1 [facility] [place] Work Phone: Comment on above: Slight Hemolysis, Re sult may be falsely increased. Protein [Mass/Vol] 8.1 g/dL 6.4-8.2 [facility] Work Phone: Sodium [Moles/Vol] 133 mmol/L 136-145 [facility] Work Phone: WBC (Bld) [#/Vol] 11.4 10*3/uL 4.4-11.0 [facility] Work Phone: Blood erythrocytes count (nu mber/volume)on 07-16-2022 RBC (Bld) [#/Vol] 4.46 10*6/uL 4.6-6.2 [facility] Work Phone: Blood hemoglobin measurement (mass/volume)on 07-16-2022 Hemoglobin (Bld) [Mass/Vol] 14.9 g/dL 13.0-16.5 [facility] [place] Work Phone: Blood lymphocytes/100 leukoc yteson 07-16-2022 Lymphocytes/100 WBC (Bld) 9.0 % 19-41 [facility] [place] Work Phone: Blood monocytes/100 leukocyt eson 07-16-2022 Monocytes/100 WBC (Bld) 6.9 % 0-10 [facility] [place] Work Phone: Blood platelet mean volumeon 07-16-2022 Platelet mean volume (Bld) [Entitic vol] 8.2 fL 6.2-12.0 [facility] [place] Work Phone: Determination of erythrocyte mean corpuscular volume (MCV)on 07-16-2022 MCV (RBC) [Entitic vol] 93.5 fL 80-94 [facility] [place] Work Phone: Hematocrit Auto (Bld) [Volum e fraction]on 07-16-2022 Hematocrit (Bld) [Volume fraction] 41.7 % 40-54 [facility] [place] Work Phone: [phone] Laboratory - Chemistry and C hemistry - challengeon 07-16-2022 ALP [Catalytic activity/Vol] 48 U/L 45-117 [facility] [place] Work Phone: ALT [Catalytic activity/Vol] 34 U/L 16-61 [facility] [place] Work Phone: CO2 [Moles/Vol] 26.0 mmol/L 21.0-32.0 [facility] [place] Work Phone: Globulin (S) [Mass/Vol] 3.9 g/dL 2.2-4.2 [facility] [place] Work Phone: Urea nitrogen/Creatinine [Mass ratio] 15.8 mg/mg 10-20 [facility] [place] Work Phone: Laboratory - Hematology and Cell countson 07-16-2022 Erythrocyte distribution width (RBC) [Entitic vol] 41.5 fL 35.1-43.9 [facility] [place] Work Phone: Erythrocyte distribution width (RBC) [Ratio] 12.0 % 11.6-14.6 [facility] [place] Work Phone: Immature granulocytes/100 WBC (Bld) 0.400 % 0.0-0.9 [facility] [place] Work Phone: Comment on above: IG% - Immature Granu locytes (promyelocytes, myelocytes and metamyelocytes) > 1% indicates that a LEFT SHIFT is Present. MCH (RBC) [Entitic mass] 33.4 pg 27.0-32.0 [facility] [place] Work Phone: Nucleated RBC/100 WBC (Bld) [Ratio] 0 % 0-5 [facility] [place] Work Phone: MCHC Auto (RBC) [Mass/Vol]on 07-16-2022 MCHC (RBC) [Mass/Vol] 35.7 g/dL 32-36 [facility] [place] Work Phone: No Panel Informationon 07-16 Estimated Creatinine Clearance Calc 71.72 ml/min [facility] [place] Work Phone: Estimated GFR (MDRD) Amer 107 mL/min >60 [facility] [place] Work Phone: Comment on above: GFR Calc Estimated GFR (MDRD) Non-Af Amer 89 mL/min >60 [facility] [place] Work Phone: Comment on above: Non- GFR Calc Platelets bldon 07-16-2022 Platelets (Bld) [#/Vol] 257 10*3/uL 150-450 [facility] [place] Work Phone: Serum or plasma albumin eliazar urement (mass/volume)on 07-16-2022 Albumin [Mass/Vol] 4.2 g/dL 3.2-5.0 [facility] Work Phone: Serum or plasma albumin/glob ulin mass ratioon 07-16-2022 Albumin/Globulin [Mass ratio] 1.1 {ratio} 0.9-2.4 [facility] [place] Work Phone: Serum or plasma calcium eliazar urement (mass/volume)on 07-16-2022 Calcium [Mass/Vol] 9.7 mg/dL 8.5-10.1 [facility] Work Phone: Serum or plasma creatinine m easurement (mass/volume)on 07-16-2022 Creatinine [Mass/Vol] 0.89 mg/dL 0.70-1.30 [facility] [place] Work Phone: Comment on above: The validity of the calculated GFR & GFRAA in patients over 70 years has not been determined. Clinical correlation is essential. Serum or plasma urea nitroge n measurement (mass/volume)on 07-16-2022 Urea nitrogen [Mass/Vol] 14 mg/dL 7-18 [facility] [place] Work Phone: Thin prep Papanicolaou smear with manual screeningon 07-16-2022 Thin prep Papanicolaou smear with manual screening 27 U/L 15-37 [facility] [place] Work Phone: Comment on above: Slight Hemolysis, Re sult may be falsely increased. Thin prep Papanicolaou smear with manual screening 8 5-15 [facility] [place] Work Phone: Comprehensive metabolic 2000 panelon 05-25-2022 Albumin [Mass/Vol] 4.8 g/dL 3.9 - 4.9 g/dL [place] ALP [Catalytic activity/Vol] 35 U/L Low 38 - 113 U/L [place] ALT [Catalytic activity/Vol] 20 U/L 10 - 54 U/L [place] Anion gap [Moles/Vol] 10 mmol/L 9 - 18 mmol/L [place] AST [Catalytic activity/Vol] 21 U/L 14 - 40 U/L [place] Bilirubin [Mass/Vol] 0.7 mg/dL 0.2 - 1 .3 mg/dL [place] Calcium [Mass/Vol] 9.5 mg/dL 8.5 - 10. 2 mg/dL [place] Chloride [Moles/Vol] 95 mmol/L Low 97 - 10 5 mmol/L [place] CO2 [Moles/Vol] 26 mmol/L 22 - 30 mmol/L [place] Creatinine [Mass/Vol] 0.92 mg/dL 0.73 - 1.22 mg/dL [place] Estimated Glomerular Filtration Rate 87 mL/min/1.73m >=60 mL/min/1.73 m [place] Glucose [Mass/Vol] 81 mg/dL 74 - 99 mg/dL [place] Potassium [Moles/Vol] 4.7 mmol/L 3.7 - 5.1 mmol/L [place] Protein [Mass/Vol] 7.3 g/dL 6.3 - 8.0 g/dL [place] Sodium [Moles/Vol] 131 mmol/L Low 136 - 144 mmol/L [place] Urea nitrogen [Mass/Vol] 20 mg/dL 9 - 24 mg/dL [place] HbA1c (Bld)on 05-25-2022 Average glucose Estimated from glycated hemoglobin (Bld) [Mass/Vol] 117 mg/dL [place] HbA1c (Bld) [Mass fraction] 5.7 % High 4.3 - 5.6 % [place] UA DIP, URINE (POC)on 2021 BILIRUBIN UA (POCT) Negative Negative [facility] CLARITY UA (POCT) Clear [facility] COLOR UA (POCT) Yellow [place] GLUCOSE UA (POCT) Negative Negative mg/dL [place] HEMOGLOBIN/BLOOD UA (POCT) Negative Negative [place] KETONE UA (POCT) Negative Negative mg/dL [place] LEUKOCYTES UA (POCT) Negative Negative [facility] NITRITE UA (POCT) Negative Negative [facility] PH UA (POCT) 6.0 4.5 - 8.0 [place] Protein Ql (U) Negative Negative mg/dL [place] SPECIFIC GRAVITY UA (POCT) 1.010 1.005 - 1.030 [place] UROBILINOGEN UA (POCT) 0.2 E.U./dL Normal E.U./dL [place] Glucose Glucometer (BldC) [M ass/Vol]on 03-07-2022 Glucose [Mass/Vol] 122 mg/dL 74-106 [facility] Work Phone: Comment on above: MANAGEMENT OF PATIEN T CARE PER NURSING PROTOCOL CTA CHEST (GATED) W IVCONon 09-23-2021 CTA CHEST (GATED) W IVCON * * *Final Report* * * DATE OF EXAM: Sep 23 2021 12:18PM [facility] [place] [facility] [place] CTA CHEST (GATED) W IVCON / PROCEDURE REASON: multiple diagnoses * * * * Physician Interpretation * * * * Examination: CTA of the chest dated 09/23/2021 12:18 PM Comparison: None available. History: 76 year old Male with thoracic aortic enlargement here for definitive evaluation, and potential surgical planning. Technique: Multi-detector CT technology was employed (Siemens Definition dual source scanner). Spiral imaging with retrospective gating was performed of the chest following the IV administration of contrast material. A low-osmolar contrast agent was used (90 cc of Omnipaque 350). CT Dose-Length Product (DLP): [address] Dose Reduction Employed: Automated exposure control (AEC) For optimization of anatomic evaluation, multiplanar reconstruction, maximum intensity projections, and advanced 3-D off-line postprocessing were performed on a dedicated stand-alone workstation by the interpreting physician. RESULT: Potential study limitations: None. CHEST: The chest wall is unremarkable. There is no significant adenopathy noted in the axillae, mediastinum, and tucker. The pericardium and pulmonary arteries appear normal. Small hiatal hernia. Lung windows reveal no acute abnormalities. Mild bilateral patchy subsegmental atelectasis. There is no abnormal pulmonary parenchymal mass, infiltrate, or pleural effusion. The cardiac chambers demonstrate normal atrioventricular and ventriculoarterial concordance, and systemic and pulmonary venous return. The cardiac chamber sizes are remarkable for mild biatrial enlargement. The coronary arteries have normal origins and courses. There are severe coronary calcifications identified, though this study was not optimized for coronary artery evaluation. VASCULAR WITH ADVANCED 3-D OFF-LINE POSTPROCESSING: Aortic valve morphology is trileaflet, and free from calcifications. The thoracic aorta is normal in course, moderately ectatic in the root and mildly ectatic in the ascending segment, and has mild calcific atherosclerotic changes of the arch and descending segment. There is no acute aortic pathology, such as dissection, intramural hematoma, or contained rupture. The arch vessel branching pattern is normal. Academic Advisor dimensions of the thoracic aorta are as follows: 2.8 x 2.3 cm at the aortic annulus 4.6 cm at the sinuses of Valsalva measured sinus to sinus (the sinotubular junction is preserved) 4.1 cm at the mid ascending aorta 4.0 cm at the distal ascending aorta 3.6 cm at the mid transverse arch 3.2 cm at the proximal descending thoracic aorta 2.7 cm at the diaphragmatic hiatus The limited images of the upper abdomen reveal no abnormalities of the visualized organs, aside from surgical material indicating prior gastric surgery. IMPRESSION: 1. The thoracic aorta is normal in course, moderately ectatic in the root (4.6 cm measured sinus to sinus) and mildly ectatic in the ascending segment (4.1 cm in maximum diameter), and has mild calcific atherosclerotic changes of the arch and descending segment. No acute aortic pathology identified. 2. Trileaflet aortic valve without cusp calcification. 3. Mild biatrial enlargement. Physicist Nuclear: PSCB Transcribe Date/Time: Sep 23 2021 12:30P Dictated by : ALEJANDRINA OSULLIVAN MD This examination was interpreted and the report reviewed and electronically signed by: ALEJANDRINA OSULLIVAN MD on Sep 23 2021 2:47PM EST [id number] [facility] CNNURSEon 12-10-2020 CNNURSE Nurse Visit (CARLEY) SPANN,TOSHA W ([id number]) 1945 M Date Time Provider Department 12/10/20 ALICE PLUMMER, CRISTIAN HOWE During your visit today, we recorded the following information about you: Allergies As of Date: 12/10/2020 Noted Allergy Reaction BARIUM SULFATE 03/16/2015 4 - Hives CARAFATE (SUCRALFATE) 04/23/2015 8 - GI Upset Comments: worsening of chest pain and IBS symptoms ERYTHROMYCIN 05/11/2005 8 - GI Upset Comments: only PO is problematic FLOMAX (TAMSULOSIN HCL) 06/10/2011 4 - Hives PENICILLINS 05/11/2005 Comments: unknown -childhood Date Reviewed: 11/10/2020 Reviewed by: Cipriano Thomas Jr. - Fully Assessed Order(s):Zecco SARS-COV-2 VACCINE 2D DOSE APPT [[id number]] Order #: [id number] Prescriptions as of 12/10/2020 Sig: PROMETHAZINE 25 MG TABLET Take 1 tablet by mouth every * PROPRANOLOL ER 120 MG CAPSULE* Take 1 capsule by mouth once * AMLODIPINE 5 MG TABLET Take 1 tablet by mouth once d* ROSUVASTATIN 10 MG TABLET Take 1 tablet by mouth once d* LOSARTAN 50 MG TABLET Take 1 tablet by mouth twice * DICYCLOMINE 20 MG TABLET Take 1 tablet by mouth once d* FINASTERIDE 5 MG TABLET Take 1 tablet by mouth once d* OMEPRAZOLE 40 MG CAPSULE,JENNIFER* Take 1 capsule by mouth twice* TIZANIDINE 4 MG CAPSULE Take 1 capsule by mouth three* TADALAFIL 20 MG TABLET Take 1 tablet by mouth once d* TYLENOL ARTHRITIS PAIN ORAL Take 2 capsules by mouth once* FLUTICASONE PROPIONATE 50 MCG* Use 2 Sprays in each nostril * ALBUTEROL SULFATE HFA 90 MCG/* Inhale 2 Puffs as instructed * CPAP AutoPAP Change settings to: 7* TRIAMCINOLONE ACETONIDE 0.5 %* Apply 1 application to affect* BECLOMETHASONE DIPROPIONATE 8* Inhale 1 Puff as instructed t* IPRATROPIUM 20 MCG-ALBUTEROL * Inhale 1 Puff as instructed e* CELECOXIB 200 MG CAPSULE 1 capsule by mouth twice per * INHALATIONAL SPACING DEVICE Use device with inhaler as di* * SAW PALMETTO 80 MG CAPSULE Take 80 mg by mouth twice anthony* * FISH OIL 500 MG CAPSULE Take one(1) tablet two(2) rogers* * CITRACAL PLUS D 315 MG-5 MCG * Take one(1) tablet two(2) rogers* * VITAMIN C 1,000 MG TABLET Take one(1) tablet daily. 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] 05/11/2005 MYALGIA AND MYOSITIS NOS [TNV2727] 05/11/2005 Unspecified sinusitis (chronic) [J32.9] 08/24/2005 09/25/2018 ESOPHAGITIS, UNSPECIFIED [K20.90] 04/12/2006 BLADDER NECK OBSTRUCTION [N32.0] 03/18/2008 BPH W URINARY OBS/LUTS [N40.1, N13.8] 03/18/2008 IMPOTENCE, ORGANIC ORIGN [N52.9] 03/18/2008 Mixed hyperlipidemia [E78.2] 10/10/2008 MALAISE AND FATIGUE NEC [R53.81, R53.83] 10/10/2008 OSTEOPOROSIS NOS [M81.0] 10/10/2008 Hyperglycemia [R73.9] 08/10/2009 Osteoarthritis [M19.90] 08/10/2009 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] 01/18/2010 Pain in Soft Tissues of Limb [M79.609] 01/19/2010 Viral Warts [B07.9] 07/30/2011 Inflamed seborrheic keratosis [L82.0] 07/30/2011 Other seborrheic keratosis [L82.1] 07/30/2011 Solar Lentigines [L81.4] 07/30/2011 Actinic skin damage [L57.8] 07/30/2011 Xerosis cutis [L85.3] 07/30/2011 Sauceda angioma [D18.01] 07/30/2011 Elevated PSA [R97.20] 05/15/2013 DDD (degenerative disc disease), cervical [M50.*07/24/2013 BPH (benign prostatic hypertrophy) with urinary*11/15/2013 Sensorineural hearing loss, bilateral [H90.3] 06/23/2017 ALFONSO (obstructive sleep apnea), REM dependent [G*06/28/2017 Abnormal REM sleep [G47.8] Nocturnal hypoxemia [G47.34] 03/07/2018 Excessive daytime sleepiness [G47.19] 11/16/2017 SVT (supraventricular tachycardia) (HCC) [I47.1]05/02/2018 Tinnitus, bilateral [H93.13] 08/21/2019 [facility] Nurse Visit (COVAMD) TOSHA SPANN ([id number]) 1945 M Date Time Provider Department 11/19/20 1:25 PM COVID VACCINE BETHEL COVAMD During your visit today, we recorded the following information about you: Allergies As of Date: 11/19/2020 Noted Allergy Reaction BARIUM SULFATE 03/16/2015 4 - Hives CARAFATE (SUCRALFATE) 04/23/2015 8 - GI Upset Comments: worsening of chest pain and IBS symptoms ERYTHROMYCIN 05/11/2005 8 - GI Upset Comments: only PO is problematic FLOMAX (TAMSULOSIN HCL) 06/10/2011 4 - Hives PENICILLINS 05/11/2005 Comments: unknown -childhood Date Reviewed: 11/10/2020 Reviewed by: Cipriano Thomas Jr. - Fully Assessed Order(s):[employer] COVID-19 VACCINE [[id number]] Order #: [id number] Zecco SARS-COV-2 VACCINE 2D DOSE APPT [[id number]] Order #: [id number] FUTURE Prescriptions as of 11/19/2020 Sig: PROMETHAZINE 25 MG TABLET Take 1 tablet by mouth every * PROPRANOLOL ER 120 MG CAPSULE* Take 1 capsule by mouth once * AMLODIPINE 5 MG TABLET Take 1 tablet by mouth once d* ROSUVASTATIN 10 MG TABLET Take 1 tablet by mouth once d* LOSARTAN 50 MG TABLET Take 1 tablet by mouth twice * DICYCLOMINE 20 MG TABLET Take 1 tablet by mouth once d* FINASTERIDE 5 MG TABLET Take 1 tablet by mouth once d* OMEPRAZOLE 40 MG CAPSULE,JENNIFER* Take 1 capsule by mouth twice* TIZANIDINE 4 MG CAPSULE Take 1 capsule by mouth three* TADALAFIL 20 MG TABLET Take 1 tablet by mouth once d* TYLENOL ARTHRITIS PAIN ORAL Take 2 capsules by mouth once* FLUTICASONE PROPIONATE 50 MCG* Use 2 Sprays in each nostril * ALBUTEROL SULFATE HFA 90 MCG/* Inhale 2 Puffs as instructed * CPAP AutoPAP Change settings to: 7* TRIAMCINOLONE ACETONIDE 0.5 %* Apply 1 application to affect* BECLOMETHASONE DIPROPIONATE 8* Inhale 1 Puff as instructed t* IPRATROPIUM 20 MCG-ALBUTEROL * Inhale 1 Puff as instructed e* CELECOXIB 200 MG CAPSULE 1 capsule by mouth twice per * INHALATIONAL SPACING DEVICE Use device with inhaler as di* * SAW PALMETTO 80 MG CAPSULE Take 80 mg by mouth twice anthony* * FISH OIL 500 MG CAPSULE Take one(1) tablet two(2) rogers* * CITRACAL PLUS D 315 MG-5 MCG * Take one(1) tablet two(2) rogers* * VITAMIN C 1,000 MG TABLET Take one(1) tablet daily. Problem List As Of Date 11/19/2020 Noted Resolved SCIATICA [M54.30] 05/11/2005 ENTHESOPATHY OF HIP [M76.899] 05/11/2005 ESOPHAGEAL REFLUX [K21.9] 05/11/2005 Essential hypertension [I10] 05/11/2005 MGRN WO [facility] MGR [G43.009] 05/11/2005 DIARRHEA NOS [R19.7] 05/11/2005 GASTROINTEST HEMORR NOS [K92.2] 05/11/2005 CAMPYLOBACTER ENTERITIS [A04.5] 05/11/2005 MYALGIA AND MYOSITIS NOS [MEE1603] 05/11/2005 Unspecified sinusitis (chronic) [J32.9] 08/24/2005 09/25/2018 ESOPHAGITIS, UNSPECIFIED [K20.90] 04/12/2006 BLADDER NECK OBSTRUCTION [N32.0] 03/18/2008 BPH W URINARY OBS/LUTS [N40.1, N13.8] 03/18/2008 IMPOTENCE, ORGANIC ORIGN [N52.9] 03/18/2008 Mixed hyperlipidemia [E78.2] 10/10/2008 MALAISE AND FATIGUE NEC [R53.81, R53.83] 10/10/2008 OSTEOPOROSIS NOS [M81.0] 10/10/2008 Hyperglycemia [R73.9] 08/10/2009 Osteoarthritis [M19.90] 08/10/2009 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] 01/18/2010 Pain in Soft Tissues of Limb [M79.609] 01/19/2010 Viral Warts [B07.9] 07/30/2011 Inflamed seborrheic keratosis [L82.0] 07/30/2011 Other seborrheic keratosis [L82.1] 07/30/2011 Solar Lentigines [L81.4] 07/30/2011 Actinic skin damage [L57.8] 07/30/2011 Xerosis cutis [L85.3] 07/30/2011 Sauceda angioma [D18.01] 07/30/2011 Elevated PSA [R97.20] 05/15/2013 DDD (degenerative disc disease), cervical [M50.*07/24/2013 BPH (benign prostatic hypertrophy) with urinary*11/15/2013 Sensorineural hearing loss, bilateral [H90.3] 06/23/2017 ALFONSO (obstructive sleep apnea), REM dependent [G*06/28/2017 Abnormal REM sleep [G47.8] Nocturnal hypoxemia [G47.34] 03/07/2018 Excessive daytime sleepiness [G47.19] 11/16/2017 SVT (supraventricular tachycardia) (HCC) [I47.1]05/02/2018 Tinnitus, bilateral [H93.13] 08/21/2019 Encounter Status:Open Normal [facility] Throat Streptococcus pyogene s antigen detection by immunofluorescence S. pyogenes Ag IF Ql (Throat) [facility] [place] Work Phone: Vital Signs Date Time Vital Sign Value Performing Clinician Facility 01-21-2025 11:02-0400 Diastolic blood pressure 72 mm[Hg] Nevin Marquez MD Work Phone: [place] 01-21-2025 11:02-0400 Systolic blood pressure 138 mm[Hg] Nevin Marquez MD Work Phone: [place] 01-21-2025 10:08-0400 Heart rate 64 /min Nevin Marquez MD Work Phone: [place] 01-21-2025 10:07-0400 Body mass index (BMI) [Ratio] 27.99 kg/m2 Nevin Marquez MD Work Phone: [place] 01-21-2025 10:07-0400 Body weight 85 kg Nevin Marquez MD Work Phone: [place] 01-21-2025 10:07-0400 Respiratory rate 16 /min Nevin Marquez MD Work Phone: [place] 12-24-2024 15:28-0400 Body mass index (BMI) [Ratio] 25.85 kg/m2 Nevin Marquez MD Work Phone: [place] 12-24-2024 15:28-0400 Body weight 78.5 kg Nevin Marquez MD Work Phone: [place] 12-24-2024 15:28-0400 Diastolic blood pressure 60 mm[Hg] Nevin Marquez MD Work Phone: [place] 12-24-2024 15:28-0400 Heart rate 72 /min Nevin Marquez MD Work Phone: [place] 12-24-2024 15:28-0400 Respiratory rate 16 /min Nevin Marquez MD Work Phone: [place] 12-24-2024 15:28-0400 SaO2% (BldA) [Mass fraction] 96 % Nevin Marquez MD Work Phone: [place] 12-24-2024 15:28-0400 Systolic blood pressure 120 mm[Hg] Nevin Marquez MD Work Phone: [place] 10-22-2024 09:13-0500 Diastolic blood pressure 87 mm[Hg] Linn Thomas DO Work Phone: [place] Comment on above: pt states pain is increasing BP 10-22-2024 09:13-0500 Heart rate 66 /min Linn Menonle DO Work Phone: [place] 10-22-2024 09:13-0500 SaO2% (BldA) [Mass fraction] 98 % Linn Thomas DO Work Phone: [place] 10-22-2024 09:13-0500 Systolic blood pressure 153 mm[Hg] Linn Thomas DO Work Phone: [place] Comment on above: pt states pain is increasing BP 10-07-2024 14:16-0500 Body height 174.2 cm Nevin Marquez MD Work Phone: [place] 10-07-2024 14:16-0500 Body mass index (BMI) [Ratio] 26.18 kg/m2 Nevin Marquez MD Work Phone: [place] 10-07-2024 14:16-0500 Body temperature 98.49 [degF] Nevin Marquez MD Work Phone: [place] 10-07-2024 14:16-0500 Body weight 79.5 kg Nevin Marquez MD Work Phone: [place] 10-07-2024 14:16-0500 Diastolic blood pressure 78 mm[Hg] Nevin Marquez MD Work Phone: [place] 10-07-2024 14:16-0500 Heart rate 68 /min Nevin Marquez MD Work Phone: [place] 10-07-2024 14:16-0500 Respiratory rate 16 /min Nevin Marquez MD Work Phone: [place] 10-07-2024 14:16-0500 SaO2% (BldA) [Mass fraction] 97 % Nevin Marquez MD Work Phone: [place] 10-07-2024 14:16-0500 Systolic blood pressure 122 mm[Hg] Nevin Marquez MD Work Phone: [place] 08-13-2024 10:21-0500 Diastolic blood pressure 83 mm[Hg] Linn Thomas DO Work Phone: [place] 08-13-2024 10:21-0500 Heart rate 62 /min Linn Thomas DO Work Phone: [place] 08-13-2024 10:21-0500 SaO2% (BldA) [Mass fraction] 95 % Linn Thomas DO Work Phone: [place] 08-13-2024 10:21-0500 Systolic blood pressure 162 mm[Hg] Linn Thomas DO Work Phone: [place] 08-12-2024 10:58-0500 Body mass index (BMI) [Ratio] 25.55 kg/m2 Emiliana Estevez MD Work Phone: [place] 08-12-2024 10:58-0500 Body weight 78.47 kg Emiliana Estevez MD Work Phone: [place] 08-12-2024 10:58-0500 Diastolic blood pressure 80 mm[Hg] Emiliana Estevez MD Work Phone: [place] 08-12-2024 10:58-0500 Heart rate 65 /min Emiliana Estevez MD Work Phone: [place] 08-12-2024 10:58-0500 SaO2% (BldA) [Mass fraction] 97 % Emiliana Estevez MD Work Phone: [place] 08-12-2024 10:58-0500 Systolic blood pressure 167 mm[Hg] Emiliana Estevez MD Work Phone: [place] 07-25-2024 10:08-0500 Diastolic blood pressure 78 mm[Hg] Sharad Brennan LEAD SOFTWARE DEVELOPMENT ENGINEER.STAFF PSYCHOLOGIST Work Phone: [place] 07-25-2024 10:08-0500 Heart rate 65 /min Sharad Brennan LEAD SOFTWARE DEVELOPMENT ENGINEER.STAFF PSYCHOLOGIST Work Phone: [place] 07-25-2024 10:08-0500 Systolic blood pressure 138 mm[Hg] Sharad Brennan LEAD SOFTWARE DEVELOPMENT ENGINEER.STAFF PSYCHOLOGIST Work Phone: [place] 07-25-2024 10:07-0500 Body mass index (BMI) [Ratio] 25.65 kg/m2 Sharad Brennan LEAD SOFTWARE DEVELOPMENT ENGINEER.STAFF PSYCHOLOGIST Work Phone: [place] 07-25-2024 10:07-0500 Body weight 78.8 kg Sharad Brennan LEAD SOFTWARE DEVELOPMENT ENGINEER.STAFF PSYCHOLOGIST Work Phone: [place] 07-25-2024 10:07-0500 Respiratory rate 16 /min Sharad Brennan LEAD SOFTWARE DEVELOPMENT ENGINEER.STAFF PSYCHOLOGIST Work Phone: [place] 04-09-2024 11:19-0400 Body height 175.3 cm Cipriano Thomas Jr., MD Work Phone: [place] 04-09-2024 11:19-0400 Body mass index (BMI) [Ratio] 25.1 kg/m2 Cipriano Thomas Jr., MD Work Phone: [place] 04-09-2024 11:19-0400 Body weight 77.11 kg Cipriano Thomas Jr., MD Work Phone: [place] 01-22-2024 10:49-0400 Body mass index (BMI) [Ratio] 24.96 kg/m2 Nevin Marquez MD Work Phone: [place] 01-22-2024 10:49-0400 Body temperature 97.2 [degF] Nevin Marquez MD Work Phone: [place] 01-22-2024 10:49-0400 Body weight 76.66 kg Nevin Marquez MD Work Phone: [place] 01-22-2024 10:49-0400 Diastolic blood pressure 79 mm[Hg] Nevin Marquez MD Work Phone: [place] 01-22-2024 10:49-0400 Heart rate 61 /min Nevin Marquez MD Work Phone: [place] 01-22-2024 10:49-0400 Respiratory rate 18 /min Nevin Marquez MD Work Phone: [place] 01-22-2024 10:49-0400 SaO2% (BldA) [Mass fraction] 98 % Nevin Marquez MD Work Phone: [place] 01-22-2024 10:49-0400 Systolic blood pressure 153 mm[Hg] Nevin Marquez MD Work Phone: [place] 01-15-2024 11:21-0400 Body height 175.3 cm Emiliana Estevez MD Work Phone: [place] 01-15-2024 11:21-0400 Body mass index (BMI) [Ratio] 25.02 kg/m2 Emiliana Estevez MD Work Phone: [place] 01-15-2024 11:21-0400 Body weight 76.84 kg Emiliana Estevez MD Work Phone: [place] 01-15-2024 11:21-0400 Diastolic blood pressure 91 mm[Hg] Emiliana Estevez MD Work Phone: [place] 01-15-2024 11:21-0400 Heart rate 68 /min Emiliana Estevez MD Work Phone: [place] 01-15-2024 11:21-0400 SaO2% (BldA) [Mass fraction] 99 % Emiliana Estevez MD Work Phone: [place] 01-15-2024 11:21-0400 Systolic blood pressure 173 mm[Hg] Emiliana Estevez MD Work Phone: [place] 08-29-2023 09:32-0500 Diastolic blood pressure 96 mm[Hg] Cipriano Thomas Jr., MD Work Phone: [place] 08-29-2023 09:32-0500 Heart rate 61 /min Cipriano Thomas Jr., MD Work Phone: [place] 08-29-2023 09:32-0500 Systolic blood pressure 176 mm[Hg] Cipriano Thomas Jr., MD Work Phone: [place] 08-29-2023 09:26-0500 Body height 175.3 cm Cipriano Thomas Jr., MD Work Phone: [place] 08-29-2023 09:26-0500 Body weight 76.2 kg Cipriano Thomas Jr., MD Work Phone: [place] 08-22-2023 09:32-0500 Diastolic blood pressure 82 mm[Hg] Krystal Sina LEAD SOFTWARE DEVELOPMENT ENGINEER.RESPITE WORKER Work Phone: [place] 08-22-2023 09:32-0500 Systolic blood pressure 158 mm[Hg] Krystal Sina LEAD SOFTWARE DEVELOPMENT ENGINEER.RESPITE WORKER Work Phone: [place] 08-22-2023 09:30-0500 Body weight 76.2 kg Krystal Sina LEAD SOFTWARE DEVELOPMENT ENGINEER.RESPITE WORKER Work Phone: [place] 08-22-2023 09:30-0500 Heart rate 68 /min Krystal Sina LEAD SOFTWARE DEVELOPMENT ENGINEER.RESPITE WORKER Work Phone: [place] 08-22-2023 09:30-0500 Respiratory rate 12 /min Krystal Sina LEAD SOFTWARE DEVELOPMENT ENGINEER.RESPITE WORKER Work Phone: [place] 06-12-2023 14:24-0400 Diastolic blood pressure 87 mm[Hg] Sharad Brennan LEAD SOFTWARE DEVELOPMENT ENGINEER.STAFF PSYCHOLOGIST Work Phone: [place] 06-12-2023 14:24-0400 Heart rate 67 /min Sharad Brennan LEAD SOFTWARE DEVELOPMENT ENGINEER.STAFF PSYCHOLOGIST Work Phone: [place] 06-12-2023 14:24-0400 Systolic blood pressure 167 mm[Hg] Sharad Brennan LEAD SOFTWARE DEVELOPMENT ENGINEER.STAFF PSYCHOLOGIST Work Phone: [place] 06-12-2023 14:23-0400 Body weight 80.29 kg Sharad Brennan LEAD SOFTWARE DEVELOPMENT ENGINEER.STAFF PSYCHOLOGIST Work Phone: [place] 06-12-2023 14:23-0400 Respiratory rate 16 /min Sharad Brennan LEAD SOFTWARE DEVELOPMENT ENGINEER.STAFF PSYCHOLOGIST Work Phone: [place] 06-03-2023 09:46-0400 Body height 175.[address] Nevin Marquez Work Phone: [facility] 06-03-2023 09:46-0400 Body mass index (BMI) [Ratio] 25.5 kg/m2 Dr. Nevin Marquez Work Phone: [facility] 06-03-2023 09:46-0400 Body temperature 97.2 [degF] Dr. Nevin Marquez Work Phone: [facility] 06-03-2023 09:46-0400 Body weight 78.[address] Nevin Marquez Work Phone: [facility] 06-03-2023 09:46-0400 Diastolic blood pressure 105 mm[Hg] Dr. Nevin Marquez Work Phone: [facility] 06-03-2023 09:46-0400 Heart rate 81 /min Dr. Nevin Marquez Work Phone: [facility] 06-03-2023 09:46-0400 Respiratory rate 18 /min Dr. Nevin Marquez Work Phone: [facility] 06-03-2023 09:46-0400 SaO2% (BldA) [Mass fraction] 98 % Dr. Nevin Marquez Work Phone: [facility] 06-03-2023 09:46-0400 Systolic blood pressure 155 mm[Hg] Dr. Nevin Marquez Work Phone: [facility] 02-21-2023 09:12-0400 Diastolic blood pressure 80 mm[Hg] Nevin Marquez MD Work Phone: [place] 02-21-2023 09:12-0400 Systolic blood pressure 150 mm[Hg] Nevin Marquez MD Work Phone: [place] 02-21-2023 08:39-0400 Body temperature 97.39 [degF] Nevin Marquez MD Work Phone: [place] 02-21-2023 08:39-0400 Body weight 84.82 kg Nevin Marquez MD Work Phone: [place] 02-21-2023 08:39-0400 Heart rate 66 /min Nevin Marquez MD Work Phone: [place] 02-21-2023 08:39-0400 Respiratory rate 18 /min Nevin Marquez MD Work Phone: [place] 02-21-2023 08:39-0400 SaO2% (BldA) [Mass fraction] 96 % Nevin Marquez MD Work Phone: [place] 01-02-2023 10:05-0400 Body weight 84.82 kg Emiliana Estevez MD Work Phone: [place] 01-02-2023 10:05-0400 Diastolic blood pressure 100 mm[Hg] Emiliana Estevez MD Work Phone: [place] 01-02-2023 10:05-0400 Heart rate 64 /min Emiliana Estevez MD Work Phone: [place] 01-02-2023 10:05-0400 Systolic blood pressure 160 mm[Hg] Emiliana Estevez MD Work Phone: [place] 11-15-2022 10:47-0500 Body weight 83.01 kg Nevin Marquez MD Work Phone: [place] 11-15-2022 10:47-0500 Diastolic blood pressure 76 mm[Hg] Nevin Marquez MD Work Phone: [place] 11-15-2022 10:47-0500 Heart rate 69 /min Nevin Marquez MD Work Phone: [place] 11-15-2022 10:47-0500 Respiratory rate 18 /min Nevin Marquez MD Work Phone: [place] 11-15-2022 10:47-0500 SaO2% (BldA) [Mass fraction] 96 % Nevin Marquez MD Work Phone: [place] 11-15-2022 10:47-0500 Systolic blood pressure 136 mm[Hg] Nevin Marquez MD Work Phone: [place] 08-16-2022 08:26-0500 Body weight 81.19 kg Nevin Marquez MD Work Phone: [place] 08-16-2022 08:26-0500 Diastolic blood pressure 82 mm[Hg] Nevin Marquez MD Work Phone: [place] 08-16-2022 08:26-0500 Heart rate 70 /min Nevin Marquez MD Work Phone: [place] 08-16-2022 08:26-0500 SaO2% (BldA) [Mass fraction] 97 % Nevin Marquez MD Work Phone: [place] 08-16-2022 08:26-0500 Systolic blood pressure 132 mm[Hg] Nevin Marquez MD Work Phone: [place] 07-16-2022 19:39-0400 Body temperature 98 [degF] [facility] Work Phone: 07-16-2022 19:39-0400 Diastolic blood pressure 89 mm[Hg] [facility] Work Phone: 07-16-2022 19:39-0400 Heart rate 69 /min [facility] Work Phone: 07-16-2022 19:39-0400 Respiratory rate 18 /min [facility] Work Phone: 07-16-2022 19:39-0400 SaO2% (BldA) [Mass fraction] 100 % [facility] Work Phone: 07-16-2022 19:39-0400 Systolic blood pressure 173 mm[Hg] [facility] Work Phone: 07-16-2022 16:01-0400 Body height 175.[address] [facility] Work Phone: 07-16-2022 16:01-0400 Body mass index (BMI) [Ratio] 25.9 kg/m2 [facility] Work Phone: 07-16-2022 16:01-0400 Body weight 79.[address] [facility] Work Phone: 07-12-2022 15:19-0400 Body height 175.3 cm Cipriano Thomas Jr., MD Work Phone: [place] 07-12-2022 15:19-0400 Body weight 81.19 kg Cipriano Thomas Jr., MD Work Phone: [place] 06-14-2022 10:21-0400 Body height 175.3 cm Cipriano Thomas Jr., MD Work Phone: [place] 06-14-2022 10:21-0400 Body weight 78.02 kg Cipriano Thomas Jr., MD Work Phone: [place] 04-26-2022 12:51-0400 Body weight 78.[address] [facility] Work Phone: 03-22-2022 15:12-0400 Body temperature 97.59 [degF] Jes Knight LEAD SOFTWARE DEVELOPMENT ENGINEER.RESPITE WORKER Work Phone: [place] 03-22-2022 15:12-0400 Body weight 78.93 kg Jes Knight LEAD SOFTWARE DEVELOPMENT ENGINEER.RESPITE WORKER Work Phone: [place] 03-22-2022 15:12-0400 Diastolic blood pressure 74 mm[Hg] Jes Knight LEAD SOFTWARE DEVELOPMENT ENGINEER.RESPITE WORKER Work Phone: [place] 03-22-2022 15:12-0400 Heart rate 66 /min Jes Knight LEAD SOFTWARE DEVELOPMENT ENGINEER.RESPITE WORKER Work Phone: [place] 03-22-2022 15:12-0400 Respiratory rate 16 /min Jes Knight LEAD SOFTWARE DEVELOPMENT ENGINEER.RESPITE WORKER Work Phone: [place] 03-22-2022 15:12-0400 SaO2% (BldA) [Mass fraction] 98 % Jes Knight LEAD SOFTWARE DEVELOPMENT ENGINEER.RESPITE WORKER Work Phone: [place] 03-22-2022 15:12-0400 Systolic blood pressure 122 mm[Hg] Jes Knight LEAD SOFTWARE DEVELOPMENT ENGINEER.RESPITE WORKER Work Phone: [place] 03-14-2022 11:20-0400 Body weight 78.02 kg Nevin Marquez MD Work Phone: [place] 03-14-2022 11:20-0400 Diastolic blood pressure 86 mm[Hg] Nevin Marquez MD Work Phone: [place] 03-14-2022 11:20-0400 Heart rate 58 /min Nevin Marquez MD Work Phone: [place] 03-14-2022 11:20-0400 SaO2% (BldA) [Mass fraction] 97 % Nevin Marquez MD Work Phone: [place] 03-14-2022 11:20-0400 Systolic blood pressure 138 mm[Hg] Nevin Marquez MD Work Phone: [place] 03-07-2022 16:21-0400 Body temperature 98.2 [degF] Dr. Nevin Marquez Work Phone: [facility] Work Phone: 03-07-2022 16:21-0400 Diastolic blood pressure 86 mm[Hg] Dr. Nevin Marquez Work Phone: [facility] Work Phone: 03-07-2022 16:21-0400 Heart rate 65 /min Dr. Nevin Marquez Work Phone: [facility] Work Phone: 03-07-2022 16:21-0400 Respiratory rate 18 /min Dr. Nevin Marquez Work Phone: [facility] Work Phone: 03-07-2022 16:21-0400 SaO2% (BldA) [Mass fraction] 97 % Dr. Nevin Marquez Work Phone: [facility] Work Phone: 03-07-2022 16:21-0400 Systolic blood pressure 136 mm[Hg] Dr. Nevin Marquez Work Phone: [facility] Work Phone: 03-07-2022 13:26-0400 Body height 172.[address] Nevin Marquez Work Phone: [facility] Work Phone: 03-07-2022 13:26-0400 Body mass index (BMI) [Ratio] 25.7 kg/m2 Dr. Nevin Marquez Work Phone: [facility] Work Phone: 03-07-2022 13:26-0400 Body weight 76.[address] Nevin Marquez Work Phone: [facility] Work Phone: 02-24-2022 17:34-0400 Body weight 80.[address] Nevin Marquez Work Phone: [facility] Work Phone: 01-24-2022 12:09-0400 Body height 175.[address] Nevin Marquez Work Phone: [facility] Work Phone: 01-24-2022 12:09-0400 Body weight 84.[address] Nevin Marquez Work Phone: [facility] Work Phone: 01-03-2022 10:58-0400 Body weight 83.92 kg Emiliana Estevez MD Work Phone: [place] 01-03-2022 10:58-0400 Diastolic blood pressure 80 mm[Hg] Emiliana Estevez MD Work Phone: [place] 01-03-2022 10:58-0400 Heart rate 72 /min Emiliana Estevez MD Work Phone: [place] 01-03-2022 10:58-0400 Systolic blood pressure 148 mm[Hg] Emiliana Estevez MD Work Phone: [place] 12-27-2021 14:47-0400 Body weight 79.[address] Nevin Marquez Work Phone: [facility] Work Phone: 12-27-2021 14:47-0400 Diastolic blood pressure 88 mm[Hg] Dr. Nevin Marquez Work Phone: [facility] Work Phone: 12-27-2021 14:47-0400 Systolic blood pressure 158 mm[Hg] Dr. Nevin Marquez Work Phone: [facility] Work Phone: 12-27-2021 14:47-0400 Body height 175.[address] Nevin Marquez Work Phone: [facility] Work Phone: 12-27-2021 14:47-0400 Body weight 79.[address] Nevin Marquez Work Phone: [facility] Work Phone: 12-27-2021 14:47-0400 Diastolic blood pressure 88 mm[Hg] Dr. Nevin Marquez Work Phone: [facility] Work Phone: 12-27-2021 14:47-0400 Systolic blood pressure 158 mm[Hg] Dr. Nevin Marquez Work Phone: [facility] Work Phone: 12-27-2021 14:42-0400 Body mass index (BMI) [Ratio] 27.7 kg/m2 Dr. Nevin Marquez Work Phone: [facility] Work Phone: 12-27-2021 14:42-0400 Body temperature 97.8 [degF] Dr. Nevin Marquez Work Phone: [facility] Work Phone: 12-27-2021 14:42-0400 Heart rate 102 /min Dr. Nevin Marquez Work Phone: [facility] Work Phone: 12-27-2021 14:42-0400 Respiratory rate 16 /min Dr. Nevin Marquez Work Phone: [facility] Work Phone: 12-27-2021 14:42-0400 SaO2% (BldA) [Mass fraction] 93 % Dr. Nevin Marquez Work Phone: [facility] Work Phone: 12-27-2021 14:42-0400 Body mass index (BMI) [Ratio] 27.7 kg/m2 Dr. Nevin Marquez Work Phone: [facility] Work Phone: 12-27-2021 14:42-0400 Body temperature 97.8 [degF] Dr. Nevin Marquez Work Phone: [facility] Work Phone: 12-27-2021 14:42-0400 Heart rate 102 /min Dr. Nevin Marquez Work Phone: [facility] Work Phone: 12-27-2021 14:42-0400 Respiratory rate 16 /min Dr. Nevin Marquez Work Phone: [facility] Work Phone: 12-27-2021 14:42-0400 SaO2% (BldA) [Mass fraction] 93 % Dr. Nevin Marquez Work Phone: [facility] Work Phone: 12-14-2021 14:20-0400 Body height 175.3 cm Cipriano Thomas Jr., MD Work Phone: [place] 12-14-2021 14:20-0400 Body weight 82.1 kg Cipriano Thomas Jr., MD Work Phone: [place] 10-18-2021 15:13-0500 Body mass index (BMI) [Ratio] 26.6 kg/m2 Dr. Nevin Marquez Work Phone: [facility] Work Phone: 10-18-2021 15:13-0500 Body weight 81.[address] Nevin Marquez Work Phone: [facility] Work Phone: 09-22-2021 11:26-0500 Body temperature 97.7 [degF] Dr. Nevin Marquez Work Phone: [facility] Work Phone: 09-22-2021 11:26-0500 Diastolic blood pressure 87 mm[Hg] Dr. Nevin Marquez Work Phone: [facility] Work Phone: 09-22-2021 11:26-0500 Heart rate 59 /min Dr. Nevin Marquez Work Phone: [facility] Work Phone: 09-22-2021 11:26-0500 Respiratory rate 16 /min Dr. Nevin Marquez Work Phone: [facility] Work Phone: 09-22-2021 11:26-0500 SaO2% (BldA) [Mass fraction] 96 % Dr. Nevin Marquez Work Phone: [facility] Work Phone: 09-22-2021 11:26-0500 Systolic blood pressure 131 mm[Hg] Dr. Nevin Marquez Work Phone: [facility] Work Phone: 09-22-2021 10:13-0500 Body mass index (BMI) [Ratio] 27.1 kg/m2 Dr. Nevin Marquez Work Phone: [facility] Work Phone: 09-22-2021 [id number] Body weight [address] Nevin Marquez Work Phone: [facility] Work Phone: Encounters Encounter Date Encounter Type Care Provider Facility Start: 06-04-2025 ambulatory Nevin Marquez Facilit y:[facility] Start: 05-26-2025 End: 05-26-2025 [email or web address] Start: 05-26-2025 End: 05-26-2025 Patient encounter procedure Merari Gaspar MA [facility] Comment on above: Population Health Na vigation Outreach ([place] ) Start: 04-04-2025 End: 04-05-2025 Refill Nevin Marquez MD Work Phone: [facility] [place] Comment on above: Refill Request Start: 01-21-2025 End: 01-21-2025 Office outpatient visit 25 minutes Nevin Marquez MD Work Phone: [facility] [place] Comment on above: Type 2 diabetes jonatan itus without complication, without long- term current use of insulin (HCC) (Primary Dx); Primary hypertension; Psychophysiological insomnia; Mixed hyperlipidemia; Spinal stenosis of lumbar region, unspecified whether neurogenic claudication present; Chronic midline low back pain, unspecified whether sciatica present Start: 01-21-2025 End: 01-21-2025 ambulatory SELF Facility:[facility] Start: 01-06-2025 End: 01-07-2025 Refill Emiliana Estevez MD Work Phone: Cardiology Comment on above: Refill Request Start: 12-24-2024 End: 12-24-2024 ambulatory NEVIN MARQUEZ Facility:[facility] Start: 12-24-2024 End: 12-24-2024 ambulatory NEVIN MARQUEZ Facility:[facility] Start: 12-24-2024 End: 12-24-2024 Office outpatient visit 25 minutes Nevin Marquez MD Work Phone: Internal Medicine [place] Comment on above: Nocturnal leg cramps (Primary Dx); Type 2 diabetes mellitus without complication, without long-term current use of insulin (HCC); ALFONSO (obstructive sleep apnea), REM dependent; Alternating constipation and diarrhea; Psychophysiological insomnia; Restless legs syndrome Start: 12-20-2024 End: 12-20-2024 Telephone encounter Nevin Marquez MD Work Phone: Internal Medicine [place] Comment on above: new order needed for CPAP supplies Start: 11-12-2024 End: 11-12-[address] Nevin Marquez MD Work Phone: [facility] Work Phone: Start: 11-12-2024 End: 11-12-[address] Ludwig Sweeney MD -Radiology, [place] Work Phone: Start: 11-12-2024 End: 11-12-2024 ambulatory Nevin Marquez Facility:[facility] Start: 11-05-2024 End: 11-05-2024 Patient encounter procedure Louis Mak DO -[facility] Work Phone: Start: 11-05-2024 End: 11-05-2024 ambulatory Nevin Marquez Facility:[facility] Start: 10-28-2024 End: 10-28-[address] Cecil Barber MD -Laboratory, Specimen Work Phone: Start: 10-28-2024 End: 10-28-2024 ambulatory Nevin Marquez Facility:[facility] Start: 10-22-2024 End: 10-22-2024 ambulatory LINN THOMAS Facility:[facility] Start: 10-22-2024 End: 10-22-2024 Patient encounter procedure Linn Thomas DO Work Phone: Vascular Surgery Comment on above: Infrarenal abdominal aortic aneurysm (AAA) without rupture (HCC) (Primary Dx) Start: 10-16-2024 End: 10-16-2024 ambulatory LINN THOMAS Facility:[facility] Start: 10-07-2024 End: 10-07-2024 Patient encounter procedure Nevin Marquez MD Work Phone: Internal Medicine [place] Comment on above: Preop examination (P rimary Dx); Spinal stenosis of lumbar region, unspecified whether neurogenic claudication present; DDD (degenerative disc disease), cervical; Polyarthralgia; Alternating constipation and diarrhea; Ectropion of left lower eyelid, unspecified ectropion type Start: 10-07-2024 End: 10-07-2024 Preprocedural examination done Nevin Marquez MD Work Phone: [place] Work Phone: Start: 10-07-2024 End: 10-07-2024 ambulatory NEVIN MARQUEZ Facility:[facility] Start: 10-07-2024 Encounter for other preprocedural examination NEVIN MARQUEZ [facility] Start: 09-02-2024 End: 09-02-2024 Patient encounter procedure [facility] [place] [facility] Start: 08-29-2024 End: 08-29-2024 Telephone encounter Emiliana Estevez MD Work Phone: [facility] Cardiology [place] Comment on above: Cardiac Clearance Start: 08-27-2024 End: 08-27-2024 Telephone encounter Cortez SRINIVASAN Work Phone: Audiology 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 Start: 08-13-2024 End: 08-13-2024 ambulatory LINN THOMAS Facility:[facility] Start: 08-13-2024 End: 08-13-2024 Patient encounter procedure Linn Thomas Work Phone: Vascular Surgery Comment on above: Infrarenal abdominal aortic aneurysm (AAA) without rupture (HCC) (Primary Dx); Dizziness; Claudication (HCC) Start: 08-12-2024 End: 08-12-2024 ambulatory EMILIANA ESTEVEZ Facility:[facility] Start: 08-12-2024 End: 08-12-2024 Patient encounter procedure Emiliana Estevez MD Work Phone: Cardiology Comment on above: Atherosclerosis of n ative artery of both lower extremities with intermittent claudication (HCC) (Primary Dx); Mixed hyperlipidemia; Primary hypertension; S/P CABG x 3 Start: 07-25-2024 End: 07-25-2024 Office outpatient visit 25 minutes Sharad Brennan APRN.CNS Work Phone: [facility] [place] Comment on above: Type 2 diabetes jonatan itus without complication, without long- term current use of insulin (HCC) (Primary Dx); Essential hypertension; Mixed hyperlipidemia; Screening for diabetic retinopathy; Encounter for screening examination for other mental health and behavioral disorders; Psychophysiological insomnia; Spinal stenosis of lumbar region, unspecified whether neurogenic claudication present; Right leg pain; Encounter for immunization Start: 07-25-2024 End: 07-25-2024 ambulatory NEVIN MARQUEZ Facility:[facility] Start: 07-24-2024 End: 07-24-2024 ambulatory NEVIN Bay [facility] Facility:[facility] Start: 07-18-2024 End: 07-18-2024 Patient encounter procedure Suzie Ortega PA-C Work Phone: Orthopaedics Comment on above: Primary osteoarthrit is of right knee (Primary Dx) Start: 07-18-2024 End: 07-18-2024 ambulatory SUZIE ORTEGA Facility:[facility] Start: 07-18-2024 End: 07-18-2024 Subsequent hospital visit by physician [facility] Work Phone: Radiology Comment on above: Pain [R52] Start: 07-16-2024 End: 07-16-2024 Orders Only Suzie Ortega PA-C Work Phone: Orthopaedics Comment on above: Pain (Primary Dx) Start: 06-18-2024 End: 06-18-2024 ambulatory Nevin Marquez MD Work Phone: Internal Medicine [place] Comment on above: Flu shot and Start: 04-30-2024 Refill Sharad Brennan LACEY Work Phone: [facility] Comment on above: Refill Request Start: 04-09-2024 End: 04-09-2024 Patient encounter procedure Cipriano Thomas MD Work Phone: Urology Comment on above: BPH with obstruction /lower urinary tract symptoms (Primary Dx) Start: 03-07-2024 End: 03-07-2024 ambulatory Jack Ordoñez [facility] Comment on above: Spinal stenosis of l umbar region, unspecified whether neurogenic claudication present (Primary Dx); Right leg pain Start: 02-29-2024 End: 02-29-2024 ambulatory Jack Tiago [facility] Comment on above: Spinal stenosis of l umbar region, unspecified whether neurogenic claudication present (Primary Dx); Right leg pain Start: 02-22-2024 End: 02-22-2024 ambulatory Jack Tiago [facility] Comment on above: Spinal stenosis of l umbar region, unspecified whether neurogenic claudication present (Primary Dx); Right leg pain Start: 02-08-2024 End: 02-08-2024 ambulatory Jack Ordoñez [facility] Comment on above: Spinal stenosis of l umbar region, unspecified whether neurogenic claudication present (Primary Dx); Right leg pain Start: 02-02-2024 Refill Emiliana Estevez MD Work Phone: Cardiology Comment on above: Refill Request Start: 01-22-2024 End: 01-22-2024 Office outpatient visit 25 minutes Nevin Marquez MD Work Phone: [facility] [place] Comment on above: Spinal stenosis of l umbar region, unspecified whether neurogenic claudication present (Primary Dx); Right leg pain; Type 2 diabetes mellitus without complication, without long-term current use of insulin (HCC); ALFONSO (obstructive sleep apnea); Essential hypertension; Mixed hyperlipidemia Start: 01-19-2024 Refill Emiliana Estevez MD Work Phone: Cardiology Comment on above: Refill Request Start: 01-15-2024 End: 01-15-2024 Patient encounter procedure Emiliana Estevez MD Work Phone: Cardiology Comment on above: Ascending aorta dila tation (HCC) (Primary Dx); SVT (supraventricular tachycardia) (HCC); Essential hypertension; Mixed hyperlipidemia; S/P CABG x 3 Start: 01-12-2024 Refill Krystal Andino APRN.CNP Work Phone: [facility] Comment on above: Refill Request Start: 01-11-2024 End: 01-11-2024 Patient encounter procedure Cortez Booth AUD Work Phone: Audiology Comment on above: Sensorineural hearin g loss, bilateral (Primary Dx) Start: 01-08-2024 End: 01-08-[address] Nevin Marquez Work Phone: [facility] Work Phone: Start: 01-08-2024 End: 01-08-[address] Nevin Marquez Work Phone: [facility] Work Phone: Start: 01-04-2024 Telephone encounter Emiliana Estevez MD Work Phone: Cardiology Comment on above: Patient Update Start: 12-11-2023 End: 12-11-2023 Patient encounter procedure Cortez Booth AUD Work Phone: Audiology Comment on above: Sensorineural hearin g loss, bilateral (Primary Dx); Tinnitus, bilateral Start: 11-16-2023 End: 11-16-[address] Nevin Marquez Work Phone: [facility] Work Phone: Start: 11-16-2023 End: 11-16-[address] Nevin Marquez Work Phone: [facility] Work Phone: Start: 11-08-2023 Refill Emiliana Estevez MD Work Phone: Cardiology Comment on above: Refill Request Start: 11-06-2023 End: 11-06-[address] Nevin Marquez Work Phone: [facility] Work Phone: Start: 11-03-2023 ambulatory Nevin coon MD Work Phone: [facility] [place] Comment on above: question on renewing prescriptions. Start: 09-14-2023 End: 09-15-2023 ambulatory NEVIN MARQUEZ Facility:[facility] Start: 09-05-2023 End: 09-05-2023 ambulatory NEVIN MARQUEZ Facility:[facility] Start: 09-05-2023 Patient encounter status Nevin Marquez MD Work Phone: [place] Work Phone: Start: 09-05-2023 End: 09-05-2023 ambulatory NEVIN MARQUEZ Facility:[facility] Start: 09-05-2023 Encounter for other preprocedural examination NEVIN MARQUEZ [facility] Start: 08-29-2023 End: 08-29-2023 Patient encounter procedure Cipriano Thomas MD Work Phone: Urology Comment on above: BPH with obstruction /lower urinary tract symptoms (Primary Dx) Start: 08-22-2023 End: 08-22-2023 Patient encounter procedure Krystal Andino APRN.CNP Work Phone: [facility] [place] Comment on above: Essential hypertensi on (Primary Dx); Mixed hyperlipidemia; Tendinosis of quadriceps tendon; Elevated PSA; Psychophysiological insomnia; Need for influenza vaccination Start: 07-18-2023 End: 07-18-2023 Patient encounter procedure Cipriano Thomas MD Work Phone: Urology Comment on above: BPH with obstruction /lower urinary tract symptoms (Primary Dx) Start: 06-12-2023 End: 06-12-2023 Office outpatient visit 25 minutes Sharad Brennan APRNTAHIRA Work Phone: [facility] [place] Comment on above: Tendinosis of natalya ceps tendon (Primary Dx); Muscle strain of right thigh, subsequent encounter; Effusion, right knee Start: 06-12-2023 End: 06-12-2023 Patient encounter procedure Cortez SRINIVASAN Work Phone: Audiology Comment on above: Sensorineural hearin g loss, bilateral (Primary Dx); Tinnitus, bilateral Start: 06-08-2023 End: 06-08-[address] Nevin Marquez Work Phone: [facility] Work Phone: Start: 06-08-2023 End: 06-08-[address] Nevin Marquez Work Phone: [facility] Work Phone: Start: 06-08-2023 Telephone encounter Nevin stephenson MD Work Phone: [facility] [place] Comment on above: Patient Update Start: 06-03-2023 End: 06-03-2023 Emergency department patient visit Dr. Nevin Marquez Work Phone: [facility]-Emergency Department Work Phone: Start: 05-12-2023 End: 05-12-[address] Nevin Marquez Work Phone: [facility] Work Phone: Start: 05-08-2023 Telephone encounter Nevin stephenson MD Work Phone: [facility] [place] Comment on above: Patient Update Start: 05-01-2023 ambulatory Nevin coon MD Work Phone: [facility] [place] Comment on above: Lamotrigine Start: 04-17-2023 Get Medical Advice Nevin alba MD Work Phone: [facility] [place] Comment on above: Need an order for a hearing exam Start: 04-06-2023 Refill Sharad Brennan APRN.STAFF PSYCHOLOGIST Work Phone: [facility] [place] Comment on above: Refill Request Start: 03-10-2023 Refill Cipriano barahona MD Work Phone: Urology Comment on above: Refill Request Start: 02-21-2023 End: 02-21-2023 Office outpatient visit 25 minutes Nevin Marquez MD Work Phone: [facility] [place] Comment on above: Essential hypertensi on (Primary Dx); Mixed hyperlipidemia; IFG (impaired fasting glucose); Psychophysiological insomnia; Constipation, unspecified constipation type Start: 02-15-2023 Telephone encounter Krystal borrego APRN.RESPITE WORKER Work Phone: [facility] [place] Comment on above: 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 Nevin Marquez Work Phone: [facility] Work Phone: Start: 02-15-2023 End: 02-15-[address] Nevin Marquez Work Phone: [facility] Work Phone: Start: 02-15-2023 End: 02-15-[address] Nevin Marquez Work Phone: [facility]-Pulmonary Services/Neurology Start: 02-14-2023 End: 02-14-[address] Nevin Marquez Work Phone: [facility] Work Phone: Start: 02-14-2023 End: 02-14-[address] Nevin Marquez Work Phone: [facility] Start: 01-30-2023 End: 01-30-[address] Nevin Marquez Work Phone: [facility] Start: 01-02-2023 End: 01-02-2023 Patient encounter procedure Emiliana Estevez MD Work Phone: Cardiology Comment on above: Screening for ischem ic heart disease (Primary Dx) Start: 12-26-2022 Telephone encounter Nevin stephenson MD Work Phone: [facility] [place] Comment on above: Pre-Op Exam Start: 12-16-2022 End: 12-16-2022 ambulatory [facility] Work Phone: Start: 12-16-2022 End: 12-16-2022 Patient encounter procedure [facility] Start: 12-05-2022 Refill Krystal Andino APRN.RESPITE WORKER Work Phone: [facility] Comment on above: Refill Request Start: 11-23-2022 Telephone encounter Nevin stephenson MD Work Phone: [facility] [place] Comment on above: Medication Problem Start: 11-15-2022 End: 11-15-2022 Office outpatient visit 40 minutes Nevin Marquez MD Work Phone: [facility] [place] Comment on above: Primary hypertension (Primary Dx); IFG (impaired fasting glucose); Pancreatic insufficiency; ALFONSO on CPAP; Psychophysiological insomnia; Current moderate episode of major depressive disorder, unspecified whether recurrent (HCC); DDD (degenerative disc disease), cervical; BPH with obstruction/lower urinary tract symptoms; Nocturia more than twice per night; Mucopurulent chronic bronchitis (HCC); Prostate cancer screening; Encounter for long-term current use of medication Start: 10-24-2022 Refill Sharad Brennan APRN.STAFF PSYCHOLOGIST Work Phone: [facility] Comment on above: Refill Request Start: 10-22-2022 Refill Emiliana Estevez MD Work Phone: [facility] Comment on above: Refill Request Start: 09-02-2022 ambulatory Nevin coon MD Work Phone: [facility] [place] Comment on above: Missing medication Start: 08-25-2022 Telephone encounter Nevin stephenson MD Work Phone: [facility] [place] Comment on above: Results ([facility] sleep s georgiana) Start: 08-18-2022 End: 08-18-[address] Nevin Marquez Work Phone: [facility] Work Phone: Start: 08-18-2022 End: 08-18-[address] Nevin Marquez Work Phone: [facility]-Sleep Lab Start: 08-16-2022 End: 08-16-2022 Office outpatient visit 40 minutes Nevin Marquez MD Work Phone: [facility] [place] Comment on above: ALFONSO on CPAP (Primary Dx); Chronic rhinitis; Pancreatic insufficiency; IFG (impaired fasting glucose); Witnessed episode of apnea; Psychophysiological insomnia; Current moderate episode of major depressive disorder, unspecified whether recurrent (HCC); Nocturnal hypoxemia Start: 08-15-2022 Refill Kary cordero APRN.CNP Work Phone: Psychiatry Comment on above: Refill Request Start: 08-05-2022 End: 08-05-[address] Nevin Marquez Work Phone: [facility] Start: 07-19-2022 Telephone encounter Nevin stephenson MD Work Phone: [facility] [place] Comment on above: Patient Update Start: 07-16-2022 End: 07-16-2022 Emergency department patient visit [facility]Emergency [facility] Start: 07-14-2022 Refill Nevin coon MD Work Phone: [facility] [place] Start: 07-12-2022 End: 07-12-2022 Patient encounter procedure Cipriano Thomas MD Work Phone: Urology Comment on above: BPH with obstruction /lower urinary tract symptoms (Primary Dx) Start: 07-12-2022 Telephone encounter Nevin stephenson MD Work Phone: [facility] [place] Comment on above: Medication question Start: 07-01-2022 Telephone encounter Nevin stephenson MD Work Phone: [facility] [place] Comment on above: Appointment; Patient Update Start: 06-30-2022 Telephone encounter Nevin stephenson MD Work Phone: [facility] [place] Comment on above: Patient Update; Shanice ent Request Medication Problem Start: 06-27-2022 Telephone encounter Nevin stephenson MD Work Phone: [facility] [place] Comment on above: diagnosis issue Start: 06-14-2022 End: 06-14-2022 Patient encounter procedure Cipriano Thomas MD Work Phone: Urology Comment on above: BPH with obstruction /lower urinary tract symptoms (Primary Dx); Overactive bladder Start: 06-07-2022 Refill Nevin coon MD Work Phone: [facility] Comment on above: Refill Request Start: 05-24-2022 End: 05-24-2022 Nursing evaluation of patient and report Mi Nurse Work Phone: [facility] Comment on above: Need for vaccination (Primary Dx) Start: 05-24-2022 ambulatory Nevin coon MD Work Phone: [facility] Comment on above: Message on Start: 05-17-2022 ambulatory Nevin coon MD Work Phone: [facility] [place] Comment on above: CPAP issue and Blood work Start: 05-02-2022 End: 05-02-2022 [facility] Kary Collazo APRN.CNP Work Phone: Psychiatry Comment on above: Adjustment disorder with mixed anxiety and depressed mood (Primary Dx) Start: 04-26-2022 End: 05-18-[address] [facility] Start: 03-30-2022 Refill Kary cordero LEAD SOFTWARE DEVELOPMENT ENGINEER.RESPITE WORKER Work Phone: Psychiatry Comment on above: Refill Request Start: 03-24-2022 Refill Sharad Brennan LEAD SOFTWARE DEVELOPMENT ENGINEER.STAFF PSYCHOLOGIST Work Phone: [facility] [place] Comment on above: Refill Request Start: 03-23-2022 Telephone encounter Bettina barberAllyson LEAD SOFTWARE DEVELOPMENT ENGINEER.RESPITE WORKER Work Phone: [facility] Comment on above: Results Start: 03-22-2022 End: 03-22-2022 Patient encounter procedure Jes Knight LEAD SOFTWARE DEVELOPMENT ENGINEER.RESPITE WORKER Work Phone: [facility] Comment on above: Urinary frequency (P rimary Dx); Burning with urination Start: 03-18-2022 End: 03-18-2022 [facility] Kary Collazo LEAD SOFTWARE DEVELOPMENT ENGINEER.RESPITE WORKER Work Phone: Psychiatry Comment on above: Adjustment disorder with mixed anxiety and depressed mood (Primary Dx) Start: 03-14-2022 End: 03-14-2022 Office outpatient visit 40 minutes Nevin Marquez MD Work Phone: [facility] [place] Comment on above: Psychophysiological insomnia (Primary Dx); Primary hypertension; Current moderate episode of major depressive disorder, unspecified whether recurrent (HCC); Chronic midline low back pain, unspecified whether sciatica present; S/P insertion of spinal cord stimulator Start: 03-09-2022 ambulatory Nevin coon MD Work Phone: [facility] [place] Comment on above: Medication Question Start: 03-07-2022 End: 03-07-2022 Admission to same day surgery center Dr[facility] N[facility] Marquez [facility] Start: 02-24-2022 End: 03-17-[address] [facility] Start: 02-24-[address] [facility] Start: 02-11-2022 End: 02-11-[address] Nevin Marquez Work Phone: [facility] Start: 02-07-2022 End: 02-07-2022 [facility] Kary Shefali Collazo APRN.RESPITE WORKER Work Phone: Psychiatry Comment on above: Adjustment disorder with mixed anxiety and depressed mood (Primary Dx) Start: 01-24-2022 End: 02-15-[address] Nevin Marquez Work Phone: [facility] Start: 01-20-2022 End: 01-20-2022 Nursing evaluation of patient and report Mi Nurse Work Phone: [facility] [place] Comment on above: Need for vaccination (Primary Dx) Start: 01-20-2022 Telephone encounter Emiliana Estevez MD Work Phone: Cardiology Comment on above: Medication clarifica tion Start: 01-07-2022 Refill Nevin coon MD Work Phone: [facility] [place] Comment on above: Refill Request Start: 01-03-2022 End: 01-03-2022 Patient encounter procedure Emiliana Estevez MD Work Phone: Cardiology Comment on above: SVT (supraventricula r tachycardia) (HCC) (Primary Dx); S/P CABG x 3; Essential hypertension; Mixed hyperlipidemia Start: 12-31-2021 Telephone encounter Jes Belcher APRN.RESPITE WORKER Work Phone: [facility] [place] Comment on above: Results Start: 12-27-2021 End: 12-27-[address] Nevin Marquez Work Phone: [facility]-Cardiac Rehab Start: 12-23-2021 ambulatory Nevin coon MD Work Phone: [facility] [place] Comment on above: My diabetes testing and taking Metformin Start: 12-21-2021 Non-patient / Non-visit Dr. Jayde Marquez Work Phone: [facility] Start: 12-21-[address] Nevin Marquez Work Phone: [facility]-Cardiovascular Services Start: 12-16-2021 Telephone encounter Cipriano Thomas MD Work Phone: [facility] Comment on above: Results Start: 12-14-2021 End: 12-14-2021 Patient encounter procedure Cipriano Thomas MD Work Phone: Urology Comment on above: BPH with obstruction /lower urinary tract symptoms (Primary Dx); Prostate cancer screening Start: 12-14-2021 Telephone encounter Jes Belcher APRN.RESPITE WORKER Work Phone: Cardiology Comment on above: Results Start: 12-13-2021 Telephone encounter Otis chan MD Work Phone: [facility] Comment on above: Patient Update Start: 12-10-2021 Telephone encounter Emiliana Estevez MD Work Phone: Cardiology Comment on above: Appointment Start: 12-09-2021 Refill Rosy CortesRESPITE WORKER Work Phone: [facility] [place] Comment on above: Refill Request Start: 10-18-2021 End: 10-18-[address] Nevin Marquez Work Phone: [facility] Start: 09-22-2021 Non-patient / Non-visit Dr. Jayde Marquez Work Phone: [facility] Start: 09-22-2021 End: 09-22-2021 Admission to same day surgery center Dr. Nevin Marquez Work Phone: [facility]-Endoscopy Start: 09-21-[address] Nevin Marquez Work Phone: [facility]-Radiology, [facility] Start: 09-20-2021 End: 09-20-[address] Nevin Marquez Work Phone: [facility] Start: 09-14-2021 Telephone encounter Nevin stephenson MD Work Phone: [facility] [place] Comment on above: Depression Start: 07-29-2021 Telephone encounter Nevin stephenson MD Work Phone: [facility] [place] Comment on above: Discussion Start: 05-02-2018 [facility] Facility :[facility] Start: 10-13-2017 End: 10-13-2017 [facility] Facility:[facility] Procedures Date Procedure Procedure Detail Performing Clinician Start: 11-12-2024 Plain x-ray of pelvi s and lower extremity Dr. Nevin Marquez MD Work Phone: Start: 11-12-[address] Nevin Marquez MD Work Phone: Start: 10-28-2024 Gram stain microscopy Bay Marquez MD Work Phone: Start: 10-28-[address] l culture Dr. Nevin Marquez MD Work Phone: Start: 07-18-2024 Arthrocentesis aspir &/inj major jt/bursa w/o us Suzie Ortega PA-C Work Phone: Start: 07-18-2024 Radiologic exam knee complete 4/more views Suzie Ortega PA-C Work Phone: Start: 01-15-2024 Ecg routine ecg w/le ast 12 lds i&r only [facility] Provider Start: 01-08-2024 MRI of lumbar spine Dr. Nevin Marquez Work Phone: Start: 11-16-2023 Computed tomography of abdomen and pelvis with contrast Dr. Nevin Marquez Work Phone: Start: 08-29-2023 Urnls dip stick/tabl et rgnt auto w/o microscopy Cipriano Thomas MD Work Phone: Start: 08-22-2023 INFLUENZA VACCINE, P RSV FREE, AGE 65+ YR, HIGH DOSE, QUADRIVALENT (FLUZONE HIGH-DOSE) Krystal Andino LEAD SOFTWARE DEVELOPMENT ENGINEER.RESPITE WORKER Work Phone: Start: 07-18-2023 Urnls dip stick/tabl et rgnt auto w/o microscopy Cipriano Thomas MD Work Phone: Start: 06-08-2023 MRI of lower extremity Dr. Nevin Marquez Work Phone: Start: 06-03-2023 Plain X-ray of femur Dr Sophia Marquez Work Phone: Start: 12-16-2022 MRI of joint of lowe r extremity Start: 07-16-2022 CT of head without contrast Start: 05-24-2022 INFLUENZA SEASONAL QUADRIVALENT HIGH DOSE AGE 65+ Nevin Marquez MD Work Phone: Start: 03-22-2022 Urnls dip stick/tabl et rgnt auto w/o microscopy Jes Knight LEAD SOFTWARE DEVELOPMENT ENGINEER.RESPITE WORKER Work Phone: Start: 03-07-2022 Implantation of neurostimulator in spine Dr. Nevin Marquez Work Phone: Start: 03-07-2022 Fluoroscopic guidance Bay Marquez Work Phone: Start: 03-07-2022 X-ray of lumbar spin e, two or three views Dr. Nevin Marquez Work Phone: Start: 01-20-2022 [facility] COVI D-19 VACCINE, AGE 12+ YR (GA TOP) Sharad Brennan LEAD SOFTWARE DEVELOPMENT ENGINEER.STAFF PSYCHOLOGIST Work Phone: Start: 11-29-2021 Adult depression scr eening assessment Rosy Older LEAD SOFTWARE DEVELOPMENT ENGINEER.RESPITE WORKER Work Phone: Start: 10-31-2021 History of coronary artery bypass grafting S/P CABG x 3 Rosy Older LEAD SOFTWARE DEVELOPMENT ENGINEER.RESPITE WORKER Work Phone: Start: 09-21-[address] Nevin Marquez Work Phone: Start: 03-26-2018 Colonoscopy Rosy Older LEAD SOFTWARE DEVELOPMENT ENGINEER.RESPITE WORKER Work Phone: History of coronary artery bypass grafting S/P CABG x 3 Emiliana Estevez MD Work Phone: History of coronary artery bypass grafting S/P CABG x 3 Emiliana Estevez MD Work Phone: History of coronary artery bypass grafting S/P CABG x 3 Emiliana Estevez MD Work Phone: Streptococcus pyogen es antigen assay Dr. Nevin Marquez Work Phone: Plan of Treatment Date Care Activity Detail Author Start: 03-27-2028 Urine microalbumin profile [place] Start: 03-26-2028 Colonoscopy COLONOSCOPY [place] Start: 03-26-2028 COLORECTAL CANCER SCREENING COLORECTAL CANCER SCREENING [place] Start: 11-18-2027 LIPID SCREEN LIPID SCREEN [place] Start: 08-23-2026 Diabetes Screening Diabetes Screenin g [place] Start: 05-23-2026 Diabetes Screening Diabetes Screenin g [place] Start: 04-06-2026 LIPID SCREEN LIPID SCREEN [place] Start: 01-21-2026 Annual PCP Team Application Support Analyst tara Disease Visit Annual PCP Team Chronic Disease Visit [place] Start: 01-21-2026 End: 01-21-2026 Patient encounter procedure 01/21/2026 9:40 AM EDT Office Visit [facility] [place] [address] [place], [place] [id number] Nevin Marquez MD [address] [place], [place] [id number] 6 month f/u [facility] [place] Comment on above: 6 month f/u Start: 12-24-2025 Annual PCP Team Application Support Analyst tara Disease Visit Annual PCP Team Chronic Disease Visit [place] Start: 12-24-2025 BP Controlled (<130/80) BP Controlle d (<130/80) [place] Start: 11-17-2025 DIABETES SCREEN DIABETES SCREEN [facility] Start: 10-21-2025 End: 10-21-2025 Patient encounter procedure Vascul[facility] Surgery Comment on above: Infrarenal abdominal aortic aneurysm (AAA) without rupture (HCC) [I71.43] 1 year follow up Start: 10-07-2025 Annual PCP Team Application Support Analyst tara Disease Visit Annual PCP Team Chronic Disease Visit [place] Start: 10-07-2025 BP Controlled (<130/80) BP Controlle d (<130/80) [place] Start: 08-25-2025 End: 08-25-2025 Patient encounter procedure Cardiology Comment on above: 1 year follow up Start: 07-25-2025 Anxiety Screening Anxiety Screening [place] Start: 07-25-2025 Covid-19 Vaccine () Covid-19 Vaccine () [place] Comment on above: Postponed from 05/19 (Declined at this time) Start: 07-25-2025 Glaucoma screening Dilated Retinal E xam [place] Start: 07-24-2025 Hepatitis B surface antibody level LDL Cholesterol [place] Start: 07-22-2025 End: 07-22-2025 Patient encounter procedure 07/22/2025 11:00 AM EST Office Visit [facility] [address] [place] [address] Nevin Marquez MD [address] [place] [address] 6 month f/u [facility] [place] Comment on above: 6 month f/u Start: 06-25-2025 Hemoglobin A1c measurement HbA1C [place] Start: 06-23-2025 End: 09-22-2025 CBC panel - Blood by Automated count COMPLETE BLOOD COUNT Lab Routine Type 2 diabetes mellitus without complication, without long-term current use of insulin (HCC) Primary hypertension Expected: 06/23/2025 (Approximate), Expires: 09/22/2025 [place] Comment on above: Expected: 06/23/2025 (Approximate), Expires: 09/22/2025 Start: 06-23-2025 End: 09-22-2025 Comprehensive metabolic 2000 panel - Serum or Plasma COMPREHENSIVE METABOLIC PANEL Lab Routine Type 2 diabetes mellitus without complication, without long-term current use of insulin (HCC) Primary hypertension Expected: 06/23/2025 (Approximate), Expires: 09/22/2025 [place] Comment on above: Expected: 06/23/2025 (Approximate), Expires: 09/22/2025 Start: 06-23-2025 End: 09-22-2025 Lipid 1996 panel - Serum or Plasma LIPID PANEL, FASTING Lab Routine Type 2 diabetes mellitus without complication, without long-term current use of insulin (HCC) Mixed hyperlipidemia Expected: 06/23/2025 (Approximate), Expires: 09/22/2025 [place] Comment on above: Expected: 06/23/2025 (Approximate), Expires: 09/22/2025 Start: 06-23-2025 End: 09-22-2025 Magnesium [Mass/volume] in Serum or Plasma MAGNESIUM Lab Routine Type 2 diabetes mellitus without complication, without long-term current use of insulin (HCC) Expected: 06/23/2025 (Approximate), Expires: 09/22/2025 [place] Comment on above: Expected: 06/23/2025 (Approximate), Expires: 09/22/2025 Start: 06-23-2025 End: 09-22-2025 Microalbumin/Creatinine [Mass Ratio] in Urine ALBUMIN/CREATININE RATIO, URINE Lab Routine Type 2 diabetes mellitus without complication, without long-term current use of insulin (HCC) Expected: 06/23/2025 (Approximate), Expires: 09/22/2025 [facility] Work Phone: Comment on above: Expected: 06/23/2025 (Approximate), Expires: 09/22/2025 Start: 05-24-2025 DIABETES SCREEN DIABETES SCREEN [facility] Start: 05-19-2025 Influenza vaccination Influenza Vacc ine (#1) [place] Start: 01-21-2025 Annual PCP Team Application Support Analyst tara Disease Visit Annual PCP Team Chronic Disease Visit [place] Start: 01-21-2025 Hemoglobin A1c measurement HbA1C [place] Start: 01-21-2025 End: 01-21-2025 Patient encounter procedure 01/21/2025 9:40 AM EDT Office Visit Internal Medicine [place] [address] [place], [place] [id number] Nevin Marquez MD [address] [place], [place] [address] 6 mo follow up Internal Medicine [place] Comment on above: 6 mo follow up Start: 01-17-2025 End: 07-18-2025 CBC W Auto Differential panel - Blood COMPLETE BLOOD COUNT AND DIFFERENTIAL Lab Routine Type 2 diabetes mellitus without complication, without long-term current use of insulin (HCC) Expected: 01/17/2025 (Approximate), Expires: 07/18/2025 [place] Comment on above: Expected: 01/17/2025 (Approximate), Expires: 07/18/2025 Start: 01-17-2025 End: 07-18-2025 Comprehensive metabolic 2000 panel - Serum or Plasma COMPREHENSIVE METABOLIC PANEL Lab Routine Type 2 diabetes mellitus without complication, without long-term current use of insulin (HCC) Expected: 01/17/2025 (Approximate), Expires: 07/18/2025 [place] Comment on above: Expected: 01/17/2025 (Approximate), Expires: 07/18/2025 Start: 01-17-2025 End: 07-18-2025 Hemoglobin A1c in Blood HEMOGLOBIN A1C Lab Routine Type 2 diabetes mellitus without complication, without long-term current use of insulin (HCC) Expected: 01/17/2025 (Approximate), Expires: 07/18/2025 [place] Comment on above: Expected: 01/17/2025 (Approximate), Expires: 07/18/2025 Start: 01-17-2025 End: 07-18-2025 Lipid 1996 panel - Serum or Plasma LIPID PANEL BASIC Lab Routine Type 2 diabetes mellitus without complication, without long-term current use of insulin (HCC) Expected: 01/17/2025 (Approximate), Expires: 07/18/2025 [place] Comment on above: Expected: 01/17/2025 (Approximate), Expires: 07/18/2025 Start: 12-13-2024 DIABETES SCREEN DIABETES SCREEN [facility] Start: 10-31-2024 DIABETES SCREEN DIABETES SCREEN [facility] Start: 10-22-2024 End: 10-22-2024 Patient encounter procedure 10/22/2024 9:00 AM EST Office Visit Vascular Surgery [address] [place] [address] Linn Thomas, DO [address] [place] [address] follow up after testing Vascular Surgery Comment on above: follow up after test ing Start: 10-16-2024 End: 10-16-2024 Patient encounter procedure Vasculary Surgery Comment on above: Claudication (HCC) [ I73.9] Dizziness [R42] Infrarenal abdominal aortic aneurysm (AAA) without rupture (HCC) [I71.43] Start: 10-07-2024 End: 10-07-2024 Patient encounter procedure 10/07/2024 2:00 PM EST Office Visit Internal Medicine [place] [address] [place], [place] [id number] Nevin Marquez MD [address] [place], [place] [id number] pr op per Dr. Elder eye surgery is 10/25/24 Internal Medicine [place] Comment on above: pr op per Dr. 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) [I70.213] [facility] Comment on above: Atherosclerosis of n ative artery of both lower extremities with intermittent claudication (HCC) [I70.213] Start: 08-22-2024 Annual PCP Team Application Support Analyst tara Disease Visit Annual PCP Team Chronic Disease Visit [place] Start: 08-19-2024 End: 08-12-2025 US Lower extremity artery - bilateral PVR LEG [facility] Vascular Lab Routine Atherosclerosis of [place] artery of both lower extremities with intermittent claudication (HCC) Expected: 08/19/2024, Expires: 08/12/2025 [facility] Work Phone: Comment on above: Expected: 08/19/2024 , Expires: 08/12/2025 Start: 08-13-2024 End: 08-13-2024 Patient encounter procedure 08/13/2024 10:00 AM EST Office Visit Vascular Surgery [address] [place] [address] Linn Thomas, DO [address] [place] [address] has not been in to see Dr. Thomas in a while Vascular Surgery Comment on above: has not been in to s ee Dr. Thomas in a while Start: 08-12-2024 End: 08-12-2024 Patient encounter procedure 08/12/2024 11:00 AM EST Office Visit Cardiology [address] [place] [phone] Emiliana Estevez MD [address] [facility], [address] [place], [place] [phone] 6 mo follow up Cardiology Comment on above: 6 mo follow up Start: 07-25-2024 End: 10-24-2024 Microalbumin/Creatinine [Mass Ratio] in Urine ALBUMIN/CREATININE RATIO, URINE Lab Routine Type 2 diabetes mellitus without complication, without long-term current use of insulin (HCC) Expected: 07/25/2024, Expires: 10/24/2024 [facility] Work Phone: Comment on above: Expected: 07/25/2024 , Expires: 10/24/2024 Start: 07-25-2024 End: 07-25-2024 Patient encounter procedure 07/25/2024 10:00 AM EST Office Visit Internal Medicine May [address] [place], [place] [id number] Sharad Brennan APRN.STAFF PSYCHOLOGIST [address] [place] [address] 6 mo follow up Internal Medicine [place] Comment on above: 6 mo follow up Start: 07-24-2024 End: 10-23-2024 CBC panel - Blood by Automated count COMPLETE BLOOD COUNT Lab Routine Essential hypertension Expected: 07/24/2024 (Approximate), Expires: 10/23/2024 [place] Comment on above: Expected: 07/24/2024 (Approximate), Expires: 10/23/2024 Start: 07-24-2024 End: 10-23-2024 Comprehensive metabolic 2000 panel - Serum or Plasma COMPREHENSIVE METABOLIC PANEL Lab Routine Essential hypertension Expected: 07/24/2024 (Approximate), Expires: 10/23/2024 [place] Comment on above: Expected: 07/24/2024 (Approximate), Expires: 10/23/2024 Start: 07-24-2024 End: 10-23-2024 Hemoglobin A1c in Blood HEMOGLOBIN A1C Lab Routine Type 2 diabetes mellitus without complication, without long-term current use of insulin (HCC) Expected: 07/24/2024 (Approximate), Expires: 10/23/2024 [facility] Work Phone: Comment on above: Expected: 07/24/2024 (Approximate), Expires: 10/23/2024 Start: 07-24-2024 End: 10-23-2024 Lipid 1996 panel - Serum or Plasma LIPID PANEL BASIC Lab Routine Mixed hyperlipidemia Expected: 07/24/2024 (Approximate), Expires: 10/23/2024 [place] Comment on above: Expected: 07/24/2024 (Approximate), Expires: 10/23/2024 Start: 07-18-2024 End: 07-18-2024 Patient encounter procedure Radiology Comment on above: knee Returning RT Knee, R T thigh pain from injury after fall in 2022. Bringing disc of MRI from [facility] Start: 07-15-2024 End: 07-15-2024 Patient encounter procedure 07/15/2024 11:00 AM EDT Office Visit Cardiology [address] [place] [phone] Emiliana Estevez MD [address] [facility], [address] [place] [address] 6 mo follow up Cardiology Comment on above: 6 mo follow up Start: 05-19-2024 Covid-19 Vaccine ( season) Covid-19 Vaccine () [place] Start: 05-19-2024 Influenza vaccination Influenza Vacc ine (#1) [place] Start: 04-09-2024 End: 04-09-2024 Patient encounter procedure 04/09/2024 11:30 AM EDT Office Visit Urology [address] [address] Cipriano Thomas Jr., MD [address] [place] [address] 6 MONTH FOLLOW UP Urology Comment on above: 6 MONTH FOLLOW UP Start: 03-14-2024 End: 03-14-2024 ambulatory 03/14/2024 1:15 PM EDT OT/PT/Speech Visit [facility] [address] [place] [address] Jack Ordoñez, PT M48.061 (ICD-10-CM) - Spinal stenosis of lumbar region, unspecified whether neurogenic claudication present [facility] Comment on above: M48.061 (ICD-10-CM) - Spinal stenosis of lumbar region, unspecified whether neurogenic claudication present Start: 03-07-2024 End: 03-07-2024 ambulatory 03/07/2024 3:00 PM EDT OT/PT/Speech Visit [facility] [address] [place] [address] Jack Ordoñez, PT M48.061 (ICD-10-CM) - Spinal stenosis of lumbar region, unspecified whether neurogenic claudication present [facility] Comment on above: M48.061 (ICD-10-CM) - Spinal stenosis of lumbar region, unspecified whether neurogenic claudication present Start: 02-29-2024 End: 02-29-2024 ambulatory 02/29/2024 9:15 AM EDT OT/PT/Speech Visit [facility] [address] [place] [address] Jack Ordoñez, PT M48.061 (ICD-10-CM) - Spinal stenosis of lumbar region, unspecified whether neurogenic claudication present [facility] Comment on above: M48.061 (ICD-10-CM) - Spinal stenosis of lumbar region, unspecified whether neurogenic claudication present Start: 02-22-2024 End: 02-22-2024 ambulatory 02/22/2024 3:00 PM EDT OT/PT/Speech Visit [facility] [address] [place] [address] Jack Ordoñez, PT M48.061 (ICD-10-CM) - Spinal stenosis of lumbar region, unspecified whether neurogenic claudication present [facility] Comment on above: M48.061 (ICD-10-CM) - Spinal stenosis of lumbar region, unspecified whether neurogenic claudication present Start: 02-22-2024 ANNUAL PCP TEAM [employer] PLANTATION MANAGER TARA DISEASE VISIT ANNUAL PCP TEAM CHRONIC DISEASE VISIT [place] Start: 02-22-2024 Hemoglobin A1c measurement HbA1C [place] Start: 02-11-2024 ANNUAL PCP TEAM PINE[employer]LE PLANTATION MANAGER TARA DISEASE VISIT ANNUAL PCP TEAM CHRONIC DISEASE VISIT [place] Start: 02-08-2024 End: 02-08-2024 ambulatory 02/08/2024 10:00 AM EDT OT/PT/Speech Visit [facility] [address] [place] [address] Jack Ordoñez PT Spinal Stenosis [facility] Comment on above: Spinal Stenosis Start: 01-22-2024 End: 01-22-2024 Patient encounter procedure 01/22/2024 10:00 AM EDT Office Visit Internal Medicine May [address] [place] [address] Nevin Marquez MD [address] [place] [address] 6 mo follow up Internal Medicine [facility] Comment on above: 6 mo follow up Start: 01-15-2024 End: 01-15-2024 Patient encounter procedure 01/15/2024 11:20 AM EDT Office Visit Cardiology [address] [place] [phone] Emiliana Estevez MD [address] [facility], [address] [place] [address] 1 year follow up Cardiology Comment on above: 1 year follow up Start: 11-18-2023 Hepatitis B surface antibody level LDL CHOLESTEROL [place] Start: 11-15-2023 ANNUAL PCP TEAM [employer] MANAGER TARA DISEASE VISIT ANNUAL PCP TEAM CHRONIC DISEASE VISIT [place] Start: 11-15-2023 COVID-19 VACCINE (5 - Booster for Pfizer series) COVID-19 VACCINE (5 - Booster for Pfizer series) [place] Comment on above: Postponed from 03/17 (Declined at this time) Start: 11-15-2023 COVID-19 VACCINE (5 - Pfizer series) COVID-19 VACCINE (5 - Pfizer series) [place] Comment on above: Postponed from 03/17 (Declined at this time) Start: 09-18-2023 Advance Directive Discussion Advance Directive Discussion [place] Start: 08-23-2023 End: 11-22-2023 Apolipoprotein B [Mass/volume] in Serum or Plasma APOLIPOPROTEIN B BLD Lab Routine Mixed hyperlipidemia Expected: 08/23/2023, Expires: 11/22/2023 [facility] Work Phone: Comment on above: Expected: 08/23/2023 , Expires: 11/22/2023 Start: 08-23-2023 End: 10-23-2023 Basic metabolic 2000 panel - Serum or Plasma BASIC METABOLIC PNL Lab Routine Essential hypertension IFG (impaired fasting glucose) Expected: 08/23/2023 (Approximate), Expires: 10/23/2023 [facility] Work Phone: Comment on above: Expected: 08/23/2023 (Approximate), Expires: 10/23/2023 Start: 08-23-2023 End: 10-23-2023 CBC panel - Blood by Automated count CBC Lab Routine Essential hypertension Expected: 08/23/2023 (Approximate), Expires: 10/23/2023 [facility] Work Phone: Comment on above: Expected: 08/23/2023 (Approximate), Expires: 10/23/2023 Start: 08-23-2023 End: 10-23-2023 Hemoglobin A1c in Blood HGB A1C Lab Routine IFG (impaired fasting glucose) Expected: 08/23/2023 (Approximate), Expires: 10/23/2023 [facility] Work Phone: Comment on above: Expected: 08/23/2023 (Approximate), Expires: 10/23/2023 Start: 08-23-2023 End: 11-22-2023 TESTOSTERONE, FREE AND TOTAL TESTOSTERONE, FREE AND TOTAL Lab Routine Elevated PSA Expected: 08/23/2023, Expires: 11/22/2023 [facility] Work Phone: Comment on above: Expected: 08/23/2023 , Expires: 11/22/2023 Start: 08-16-2023 ANNUAL PCP TEAM PINE[employer]ANT[employer] MANAGER TARA DISEASE VISIT ANNUAL PCP TEAM CHRONIC DISEASE VISIT [place] Start: 06-27-2023 ANNUAL PCP TEAM P[employer]ANTATION MANAGER TARA DISEASE VISIT ANNUAL PCP TEAM CHRONIC DISEASE VISIT [place] Start: 05-19-2023 Covid-19 Vaccine ( season) Covid-19 Vaccine () [place] Start: 05-19-2023 Influenza vaccination [facility] Start: 03-22-2023 BP CONTROLLED (<130/80) BP CONTROLLE D (<130/80) [place] Start: 03-14-2023 ANNUAL PCP TEAM PINE[employer]LE PLANTATION MANAGER TARA DISEASE VISIT ANNUAL PCP TEAM CHRONIC DISEASE VISIT [place] Start: 11-29-2022 Adult depression screening assessment DEPRESSION SCREENING [place] Start: 11-15-2022 End: 01-15-2023 CBC panel - Blood by Automated count CBC Lab Routine Primary hypertension Encounter for long-term current use of medication Expected: 11/15/2022, Expires: 01/15/2023 [facility] Work Phone: Comment on above: Expected: 11/15/2022 , Expires: 01/15/2023 Start: 11-15-2022 End: 01-15-2023 Comprehensive metabolic 2000 panel - Serum or Plasma COMP METABOLIC PANEL Lab Routine IFG (impaired fasting glucose) Primary hypertension Encounter for long-term current use of medication Expected: 11/15/2022, Expires: 01/15/2023 [facility] Work Phone: Comment on above: Expected: 11/15/2022 , Expires: 01/15/2023 Start: 11-15-2022 End: 01-15-2023 Hemoglobin A1c in Blood HGB A1C Lab Routine IFG (impaired fasting glucose) Encounter for long-term current use of medication Expected: 11/15/2022, Expires: 01/15/2023 [facility] Work Phone: Comment on above: Expected: 11/15/2022 , Expires: 01/15/2023 Start: 11-15-2022 End: 01-15-2023 Lipid 1996 panel - Serum or Plasma LIPID PANEL BASIC Lab Routine Encounter for long-term current use of medication Expected: 11/15/2022, Expires: 01/15/2023 [facility] Work Phone: Comment on above: Expected: 11/15/2022 , Expires: 01/15/2023 Start: 11-15-2022 End: 01-15-2023 Magnesium [Mass/volume] in Serum or Plasma MAGNESIUM BLD Lab Routine Encounter for long-term current use of medication Expected: 11/15/2022, Expires: 01/15/2023 [facility] Work Phone: Comment on above: Expected: 11/15/2022 , Expires: 01/15/2023 Start: 11-15-2022 End: 01-15-2023 PSA/PROSTSPECAG SCRN PSA/PROSTSPECAG SCRN Lab Routine BPH with obstruction/lower urinary tract symptoms Encounter for long-term current use of medication Prostate cancer screening Expected: 11/15/2022, Expires: 01/15/2023 [facility] Work Phone: Comment on above: Expected: 11/15/2022 , Expires: 01/15/2023 Start: 11-05-2022 ANNUAL PCP TEAM [employer] MANAGER TARA DISEASE VISIT ANNUAL PCP TEAM CHRONIC DISEASE VISIT [place] Start: 09-18-2022 ADVANCE DIRECTIVE DISCUSSION ADVANCE DIRECTIVE DISCUSSION [place] Start: 07-16-2022 [facility] Work Phone: Start: 05-19-2022 Influenza vaccination INFLUENZA (#1) [place] Start: 04-06-2022 Hepatitis B surface antibody level LDL CHOLESTEROL [place] Start: 03-17-2022 COVID-19 VACCINE (5 - Booster for Pfizer series) COVID-19 VACCINE (5 - Booster for Pfizer series) [place] Start: 03-07-2022 X-ray of lumbar spin e, two or three views Lumbar Spine 2 or 3 Views [facility] Work Phone: Start: 03-07-2022 XR Lumbar spine 2 or 3 Views [facility] Work Phone: Start: 03-07-2022 Anes integ musc & nr v head neck&posterior trunk ANESTH HEAD/NECK/PTRUNK [facility] Work Phone: Start: 03-07-2022 Insj/rplcmt spi npgr dir/induxive coupling INSRT/REDO SPINE N GENERATOR [facility] Work Phone: Start: 03-07-2022 Prq impltj nstim electrode array epidural IMPLANT NEUROELECTRODES [facility] Work Phone: Start: 03-07-2022 Patient discharge [facility] Work Phone: Start: 12-27-2021 [facility] Work Phone: Start: 12-27-2021 Patient referral to dietitian [facility] Work Phone: Start: 12-14-2021 End: 02-13-2022 Prostate Specific Ag Free [Mass/volume] in Serum or Plasma PSA FREE Lab Routine Prostate cancer screening Expected: 12/14/2021, Expires: 02/13/2022 [facility] Work Phone: Comment on above: Expected: 12/14/2021 , Expires: 02/13/2022 Start: 12-14-2021 End: 02-13-2022 PSA/PROSTSPECAG SCRN PSA/PROSTSPECAG SCRN Lab Routine Prostate cancer screening Expected: 12/14/2021, Expires: 02/13/2022 [facility] Work Phone: Comment on above: Expected: 12/14/2021 , Expires: 02/13/2022 Start: 09-22-2021 Egd insert guide wir e dilator passage esophagus EGD GUIDE WIRE INSERTION [facility] Work Phone: Start: 09-22-2021 Egd transoral biopsy single/multiple EGD BIOPSY SINGLE/MULTIPLE [facility] Work Phone: Start: 09-22-2021 Egd transoral contro l bleeding any method EGD CONTROL BLEEDING ANY [facility] Work Phone: Start: 09-18-2021 ADVANCE DIRECTIVE DISCUSSION ADVANCE DIRECTIVE DISCUSSION [place] Start: 05-19-2012 Medicare Annual Well ness Visit Medicare Annual Wellness Visit [place] Start: 2007 RSV Vaccine (1 - 1-d ose 60+ series) RSV Vaccine (1 - 1-dose 60+ series) [place] Start: 1992 COLOGUARD (FIT-DNA) COLOGUARD (FIT-D NA) [place] Start: [address] COLONOGRAPHY [facility] Start: 1992 FECAL OCCULT BLOOD FECAL OCCULT BLOO D [place] Start: 1992 SIGMOIDOSCOPY SIGMOIDOSCOPY [facility] Start: 1965 Anxiety Screening Anxiety Screening [place] Start: 1965 BP CONTROLLED (<130/80) BP CONTROLLE D (<130/80) [place] Start: 1957 Diabetic foot examination Diabetic F oot Exam [place] Start: 1957 Glaucoma screening Dilated Retinal E xam [place] Start: 1957 Hepatitis B screening Urine Al bumin:Creatinine Ratio [place] Bacteria identified in Urine by Culture URINE CULTURE Microbiology Routine Urinary frequency Burning with urination Ordered: 03/22/2022 [facility] Work Phone: Comment on above: Ordered: 03/22/2022 End: 12-29-2023 ECG COMPLETE ECG COMPLETE ECG Routine Screening for ischemic heart disease 1 Occurrences starting 12/28/2022 until 12/29/2023 [facility] Work Phone: Comment on above: 1 Occurrences starti ng 12/28/2022 until 12/29/2023 ECG COMPLETE [facility] Work Phone: Comment on above: Ordered: 01/15/2024 HEARING TEST/AUDIOGRAM HEARING T EST/AUDIOGRAM Audiology Routine Hearing loss, unspecified hearing loss type, unspecified laterality Ordered: 04/18/2023 [facility] Work Phone: Comment on above: Ordered: 04/18/2023 Patient Education [facility] Work Phone: Patient referral [facility] Work Phone: End: 05-24-2023 Polysomnogram POLYSOMNOGRAM (PSG) Procedures Routine ALFONSO on CPAP Nocturnal hypoxemia 1 Occurrences starting 05/24/2022 until 05/24/2023 [facility] Work Phone: Comment on above: 1 Occurrences starti ng 05/24/2022 until 05/24/2023 Streptococcus pyogen es antigen assay Group A Streptococcus Rapid Screen [facility] Work Phone: End: 08-13-2025 US Abdominal Aorta US ABD AORTA COMPLETE [facility] Lab Routine Infrarenal abdominal aortic aneurysm (AAA) without rupture (HCC) 1 Occurrences starting 08/13/2024 until 08/13/2025 [facility] Work Phone: Comment on above: 1 Occurrences starti ng 08/13/2024 until 08/13/2025 End: 10-22-2025 US Abdominal Aorta US ABD AORTA COMPLETE [facility] V[facility] Lab Routine Infrarenal abdominal aortic aneurysm (AAA) without rupture (HCC) 1 Occurrences starting 10/22/2024 until 10/22/2025 [facility] Work Phone: Comment on above: 1 Occurrences starti ng 10/22/2024 until 10/22/2025 End: 08-13-2025 US Carotid arteries - bilateral US CAROTID ARTERIES [facility] Vascular Lab Routine Dizziness 1 Occurrences starting 08/13/2024 until 08/13/2025 [place] Comment on above: 1 Occurrences starti ng 08/13/2024 until 08/13/2025 End: 08-13-2025 US.doppler Extremity arteries - bilateral for physiologic artery study at rest and with exercise PVR LEG W/EXC [facility] Vascular Lab Routine Claudication (HCC) 1 Occurrences starting 08/13/2024 until 08/13/2025 [place] Comment on above: 1 Occurrences starti ng 08/13/2024 until 08/13/2025 End: 08-15-2025 XR Knee - right 4 Views XR KNEE GENERAL 4V AP BOTH/PA BOTH/LAT/MERC RIGHT Radiology Routine Pain 1 Occurrences starting 07/16/2024 until 08/15/2025 [facility] Work Phone: Comment on above: 1 Occurrences starti ng 07/16/2024 until 08/15/2025 [facility] Immunizations Immunization Date Immunization Notes Care Provider [facility] 06-25-2024 influenza virus vacc ine, unspecified formulation Nevin Marquez MD Work Phone: [place] 08-26-2023 respiratory syncytia l virus (RSV), unspecified formulation Cipriano Thomas Jr., MD Work Phone: [place] 08-22-2023 influenza (HD-IIV4) vaccine, age 65+ yr, high dose, quadrivalent, PF (FLUZONE HIGH-DOSE) Krystal Andino APRN.RESPITE WORKER Work Phone: [place] Work Phone: 08-22-2023 influenza virus vacc ine, unspecified formulation Emiliana Estevez MD Work Phone: [place] 09-06-2022 influenza, high-dose , quadrivalent vaccine (FLUZONE HIGH DOSE QUADRIVALENT) Tn Nurse Work Phone: [place] Work Phone: 05-24-2022 influenza virus vacc ine, unspecified formulation Cortez Booth CRAIG Work Phone: [place] 01-20-2022 COVID-19 vaccine, ag e 12+ yr (PFIZER-BIONTECH - GA TOP) Emiliana Estevez MD Work Phone: [place] Work Phone: 09-02-2021 COVID-19 vaccine, ag e 12+ yr (PFIZER-BIONTECH - PURPLE TOP) Rosy Older LEAD SOFTWARE DEVELOPMENT ENGINEER.RESPITE WORKER Work Phone: [place] 06-04-2021 influenza, high dose seasonal, preservative-free Rosy Older LEAD SOFTWARE DEVELOPMENT ENGINEER.RESPITE WORKER Work Phone: [place] Work Phone: 06-04-2021 influenza, high-dose , quadrivalent vaccine (FLUZONE HIGH DOSE QUADRIVALENT) Nevin Marquez MD Work Phone: [place] 12-10-2020 COVID-19 vaccine, ag e 12+ yr (PFIZER-BIONTECH - PURPLE TOP) Rosy Older LEAD SOFTWARE DEVELOPMENT ENGINEER.RESPITE WORKER Work Phone: [place] Work Phone: 11-19-2020 COVID-19 vaccine, ag e 12+ yr (PFIZER-BIONTECH - PURPLE TOP) Rosy Older LEAD SOFTWARE DEVELOPMENT ENGINEER.RESPITE WORKER Work Phone: [place] Work Phone: 06-08-2020 influenza, high dose seasonal, preservative-free Rosy Older LEAD SOFTWARE DEVELOPMENT ENGINEER.RESPITE WORKER Work Phone: [place] 06-08-2020 influenza, high-dose , quadrivalent vaccine (FLUZONE HIGH DOSE QUADRIVALENT) Nevin Marquez MD Work Phone: [place] 05-24-2019 influenza, high dose seasonal, preservative-free Rosy Older LEAD SOFTWARE DEVELOPMENT ENGINEER.RESPITE WORKER Work Phone: [place] Work Phone: 10-02-2018 zoster vaccine recombinant Rosy Older LEAD SOFTWARE DEVELOPMENT ENGINEER.RESPITE WORKER Work Phone: [place] 06-18-2018 zoster vaccine recombinant Rosy Older LEAD SOFTWARE DEVELOPMENT ENGINEER.RESPITE WORKER Work Phone: [place] Work Phone: 06-08-2018 influenza, high dose seasonal, preservative-free Rosy Older LEAD SOFTWARE DEVELOPMENT ENGINEER.RESPITE WORKER Work Phone: [place] 03-27-2018 tetanus toxoid, redu yesenia diphtheria toxoid, and acellular pertussis vaccine, adsorbed Rosy Older LEAD SOFTWARE DEVELOPMENT ENGINEER.RESPITE WORKER Work Phone: [place] 05-31-2017 influenza, high dose seasonal, preservative-free Rosy Older LEAD SOFTWARE DEVELOPMENT ENGINEER.RESPITE WORKER Work Phone: [place] 06-01-2016 influenza, high dose seasonal, preservative-free Rosy Older LEAD SOFTWARE DEVELOPMENT ENGINEER.RESPITE WORKER Work Phone: [place] 08-10-2015 pneumococcal conjuga te vaccine, 13 valent Rosy Older LEAD SOFTWARE DEVELOPMENT ENGINEER.RESPITE WORKER Work Phone: [place] Work Phone: 07-09-2015 influenza, high dose seasonal, preservative-free Rosy Older LEAD SOFTWARE DEVELOPMENT ENGINEER.RESPITE WORKER Work Phone: [place] 06-25-2014 influenza, seasonal, injectable Rosy Older LEAD SOFTWARE DEVELOPMENT ENGINEER.RESPITE WORKER Work Phone: [place] 06-03-2014 pneumococcal polysaccharide vaccine, 23 valent Rosy Older LEAD SOFTWARE DEVELOPMENT ENGINEER.RESPITE WORKER Work Phone: [place] 06-22-2013 influenza virus vacc ine, unspecified formulation Rosy Older LEAD SOFTWARE DEVELOPMENT ENGINEER.RESPITE WORKER Work Phone: [place] 07-24-2012 tetanus and diphther ia toxoids, adsorbed, preservative free, for adult use (2 Lf of tetanus toxoid and 2 Lf of diphtheria toxoid) Rosy Older LEAD SOFTWARE DEVELOPMENT ENGINEER.RESPITE WORKER Work Phone: [place] 06-23-2012 influenza virus vacc ine, unspecified formulation Rosy Older LEAD SOFTWARE DEVELOPMENT ENGINEER.RESPITE WORKER Work Phone: [place] 06-25-2011 influenza virus vacc ine, unspecified formulation Rosy Older LEAD SOFTWARE DEVELOPMENT ENGINEER.RESPITE WORKER Work Phone: [place] 06-15-2010 influenza virus vacc ine, unspecified formulation Rosy Older LEAD SOFTWARE DEVELOPMENT ENGINEER.[facility] Work Phone: [place] 01-14-2009 zoster vaccine, live Rosy Old er LEAD SOFTWARE DEVELOPMENT ENGINEER.RESPITE WORKER Work Phone: [place] 07-18-2008 influenza virus vacc ine, whole virus Nevin Marquez MD Work Phone: [place] 06-21-2007 influenza virus vacc ine, unspecified formulation Rosy Older LEAD SOFTWARE DEVELOPMENT ENGINEER.[facility] Work Phone: [place] 10-06-2006 pneumococcal polysaccharide vaccine, 23 valent Rosy Older LEAD SOFTWARE DEVELOPMENT ENGINEER.[facility] Work Phone: [place] 07-24-2006 influenza virus vacc ine, unspecified formulation Rosy Older LEAD SOFTWARE DEVELOPMENT ENGINEER.[facility] Work Phone: [place] Work Phone: 03-15-2004 typhoid vaccine, parenteral, other than acetone-killed, dried Rosy Older LEAD SOFTWARE DEVELOPMENT ENGINEER.[facility] Work Phone: [place] 03-15-2004 typhoid capsular polysaccharide vaccine Nevin Marquez MD Work Phone: [place] 10-24-2002 hepatitis A vaccine, unspecified formulation Rosy Older LEAD SOFTWARE DEVELOPMENT ENGINEER.RESPITE WORKER Work Phone: [place] 07-26-2002 tetanus and diphther ia toxoids, adsorbed, preservative free, for adult use (2 Lf of tetanus toxoid and 2 Lf of diphtheria toxoid) Rosy Older LEAD SOFTWARE DEVELOPMENT ENGINEER.[facility] Work Phone: [place] Work Phone: 02-13-2002 hepatitis A vaccine, unspecified formulation Rosy Older LEAD SOFTWARE DEVELOPMENT ENGINEER.[facility] Work Phone: [place] 02-13-2002 TD(adult) unspecifie d formulation Nevin Marquez MD Work Phone: [place] Payers Date Payer Category Payer Self-pay [id number] 2019 Private Health Insurance MMO MED ICARE SUPPLEMENT [id number] 2019 Unknown MMO MMO MEDICARE SUPPLEMENT [id number] 2019-Present [phone] [address] [place] [address] Indemnity [id number] 2019 Unknown [id number] 2019 Unknown [id number] 2012 Medicare MEDICARE MEDICAR E A AND B [id number] 2012-Present [phone] [place] [address] Medicare [id number] 2012 Medicare [id number] 2012 Medicare [id number] Medicare [id number] Unknown [id number] Unknown [id number] Unknown [id number] Unknown [id number] Unknown [id number] Social History Date Type Detail Facility Start: 01-18-2010 End: 07-25-2024 Tobacco smoking status NHIS Ex-smoker [place] Start: 09-18-1964 End: 09-18-1970 History of tobacco use Current smoker [place] Start: 09-18-1964 End: 09-18-1970 History of tobacco use Cigarette Smoker [place] Start: 11-29-2021 End: 08-29-2023 Alcohol intake Current drinker of alcohol (finding) [place] Start: 11-29-2021 End: 02-10-2023 Alcohol intake [place] Start: 04-11-2020 End: 08-15-2022 History SDOH Alcohol Frequency 1 [place] Start: 01-18-2010 History SDOH Alcohol Comment rarely [place] Start: 06-17-2021 End: 08-15-2022 History SDOH Social Connections Phone 5 [place] Start: 06-17-2021 End: 08-15-2022 History SDOH Social Connections Get Together 3 [place] Start: 06-17-2021 End: 08-15-2022 History SDOH Physical Activity MPS 2 [place] Start: 04-11-2020 Education 21 [place] Start: 1945 Sex Assigned At Male [facility] Start: 11-19-2021 End: 08-16-2022 Exposure to SARS-CoV-2 (event) Not sure [place] Start: 12-27-2021 End: 11-06-2023 Tobacco smoking status DCIS Unknown if ever smoked [facility] Start: 01-18-2010 End: 07-25-2024 Tobacco use and exposure Smokeless tobacco non-user [place] Start: 08-15-2022 History SDOH Alcohol Frequency 4 [place] Start: 08-15-2022 History SDOH Physica l Activity MPS 6 [place] Start: 08-15-2022 End: 02-10-2023 Social connection and isolation panel [place] Do you belong to any clubs or organizations such as latter day groups, unions, fraternal or athletic groups, or school groups? Yes [place] Are you now , , , , never or living with a partner? [place] How often to you hav e a drink containing alcohol? 2-3 time sa week [place] How many standard drinks containing alcohol do you have on a typical day? 1 or 2 [place] How often do you hav e 6 or more drinks on 1 occasion? Never [place] Start: 08-19-2012 How hard is it for y ou to pay for the very basics like food, housing, medical care, and heating Not hard at all [place] Do you feel stress - tense, restless, nervous, or anxious, or unable to sleep at night because your mind is troubled all the time - these days [OSQ] Not at all [place] (I/We) worried wheth er (my/our) food would run out before (I/we) got money to buy more. Never true [place] In the past 12 month s, was there a time when you were not able to pay the mortgage or rent on time? No [place] Start: 08-01-2019 Gender identity Identifies as male gender (finding) [place] Start: 08-01-2019 Sexual orientation Heterosexual (rosa waldrop) [place] Start: 10-10-2023 End: 01-21-2025 Alcohol intake Ex-drinker (finding) [place] Start: 11-26-2024 Sex Male (finding) [facility] NEGATED: Highlighted rowStart: NINF History of tobacco use Passive smoker [place] Medical Equipment Procedure Code Equipment Code Equipment Origin al Text Equipment Identifier Dates Insertion, spinal cord stimulator, permanent Antibacterial Envelope FDA Start: 03-07-2022 Insertion, spinal cord stimulator, permanent Intellis Adaptive Stim FDA Start: 03-07-2022 Insertion, spinal cord stimulator, permanent Lead Kit [id number] FDA Start: 03-07-2022 Insertion, spinal cord stimulator, permanent lead kit [id number] FDA Start: 03-07-2022 Insertion, spinal cord stimulator, permanent Antibacterial Envelope FDA Start: 03-07-2022 Insertion, spinal cord stimulator, permanent Intellis Adaptive Stim FDA Start: 03-07-2022 Insertion, spinal cord stimulator, permanent Lead Kit [id number] FDA Start: 03-07-2022 Insertion, spinal cord stimulator, permanent lead kit [id number] FDA Start: 03-07-2022 Insertion, spinal cord stimulator, permanent Antibacterial Envelope FDA Start: 03-07-2022 Insertion, spinal cord stimulator, permanent Intellis Adaptive Stim FDA Start: 03-07-2022 Insertion, spinal cord stimulator, permanent Lead Kit [id number] FDA Start: 03-07-2022 Insertion, spinal cord stimulator, permanent lead kit [id number] FDA Start: 03-07-2022 Insertion, spinal cord stimulator, permanent Antibacterial Envelope FDA Start: 03-07-2022 Insertion, spinal cord stimulator, permanent Intellis Adaptive Stim FDA Start: 03-07-2022 Insertion, spinal cord stimulator, permanent Lead Kit [id number] FDA Start: 03-07-2022 Insertion, spinal cord stimulator, permanent lead kit [id number] FDA Start: 03-07-2022 Insertion, spinal cord stimulator, permanent Antibacterial Envelope FDA Start: 03-07-2022 Insertion, spinal cord stimulator, permanent Intellis Adaptive Stim FDA Start: 03-07-2022 Insertion, spinal cord stimulator, permanent Lead Kit [id number] FDA Start: 03-07-2022 Insertion, spinal cord stimulator, permanent lead kit [id number] FDA Start: 03-07-2022 Insertion, spinal cord stimulator, permanent Antibacterial Envelope FDA Start: 03-07-2022 Insertion, spinal cord stimulator, permanent Intellis Adaptive Stim FDA Start: 03-07-2022 Insertion, spinal cord stimulator, permanent Lead Kit [id number] FDA Start: 03-07-2022 Insertion, spinal cord stimulator, permanent lead kit [id number] FDA Start: 03-07-2022 Insertion, spinal cord stimulator, permanent Antibacterial Envelope FDA Start: 03-07-2022 Insertion, spinal cord stimulator, permanent Intellis Adaptive Stim FDA Start: 03-07-2022 Insertion, spinal cord stimulator, permanent Lead Kit [id number] FDA Start: 03-07-2022 Insertion, spinal cord stimulator, permanent lead kit [id number] FDA Start: 03-07-2022 Insertion, spinal cord stimulator, permanent Antibacterial Envelope FDA Start: 03-07-2022 Insertion, spinal cord stimulator, permanent Intellis Adaptive Stim FDA Start: 03-07-2022 Insertion, spinal cord stimulator, permanent Lead Kit [id number] FDA Start: 03-07-2022 Insertion, spinal cord stimulator, permanent lead kit [id number] FDA Start: 03-07-2022 Insertion, spinal cord stimulator, permanent Antibacterial Envelope FDA Start: 03-07-2022 Insertion, spinal cord stimulator, permanent Intellis Adaptive Stim FDA Start: 03-07-2022 Insertion, spinal cord stimulator, permanent Lead Kit [id number] FDA Start: 03-07-2022 Insertion, spinal cord stimulator, permanent lead kit [id number] FDA Start: 03-07-2022 Insertion, spinal cord stimulator, permanent Antibacterial Envelope FDA Start: 03-07-2022 Insertion, spinal cord stimulator, permanent Intellis Adaptive Stim FDA Start: 03-07-2022 Insertion, spinal cord stimulator, permanent Lead Kit [id number] FDA Start: 03-07-2022 Insertion, spinal cord stimulator, permanent lead kit [id number] FDA Start: 03-07-2022 Insertion, spinal cord stimulator, permanent Antibacterial Envelope FDA Start: 03-07-2022 Insertion, spinal cord stimulator, permanent Intellis Adaptive Stim FDA Start: 03-07-2022 Insertion, spinal cord stimulator, permanent Lead Kit [id number] FDA Start: 03-07-2022 Insertion, spinal cord stimulator, permanent lead kit [id number] FDA Start: 03-07-2022 [facility] Cardiova scular 3/16x.25in Thk1.65mm Rectangle Ptfe [place] - [id number] Start: 10-25-2021 Low Profile Ster nal X-Plate 8 Holes [id number] Start: 10-25-[address] iving Screw 2.3mm X 12mm [id number] Start: 10-25-2021 [id number], [id number] Start: 10-31-2021 Comment on above: Use with blood gluco se test 3 times daily, Insulin Dep? No Use with blood gluco se test 3 times daily. Insulin Dep? No Goals Date Patient Goal Desired Activity /State Personal health goal Functional Status Date Assessment Result Facility 09-15-2023 Are you deaf, or do you have serious difficulty hearing No 09/15/2023 12:22 PM Deandra Hernandez, ZAID No [place] 09-15-2023 Are you blind, or do you have serious difficulty seeing, even when wearing glasses No 09/15/2023 12:22 PM Deandra Hernandez, ZAID No [place] 09-15-2023 Do you have serious difficulty walking or climbing stairs No 09/15/2023 12:22 PM Deandra Hernandez, ZAID No [place] 09-15-2023 Do you have difficul ty dressing or bathing No 09/15/2023 12:22 PM Deandra Hernandez, ZAID No [place] 09-15-2023 Because of a physica l, mental, or emotional condition, do you have difficulty doing errands alone such as visiting a physician's office or shopping No 09/15/2023 12:22 PM Deandra Hernandez, ZAID No [place] Mental Status Date Assessment Result Facility 09-15-2023 Because of a physica l, mental, or emotional condition, do you have serious difficulty concentrating, remembering, or making decisions No 09/15/2023 12:22 PM Deandra Hernandez, ZAID No [place] 07-16-2022 Cognitive function Level Of Cons ciousness Awake;Alert;Appropriate;Fol lows Commands [facility] Work Phone: 03-07-2022 Cognitive function Voice/Name [facility] Work Phone: 09-22-2021 Cognitive function Voice/Name [facility] Work Phone: 09-22-2021 Cognitive function Patient Oriruss manuel Person;Place;Time [facility] Work Phone: Clinical Notes 08-24-2005 to 05-26-2025 Merari Gaspar MA - 05/26/2025 10:29 AM EDTTelephone Encounter - Gretchen Wilder MA - 04/05/2025 1:01 PM EDTTelephone Encounter - Gretchen Wilder MA - 04/05/2025 1:01 PM EDT Note Date & Type Note Facility 05-26-2025 Note HNO ID: [id number] Author: MERARI GASPAR MA Service: ? Author Type: Printing Gray Cloth Tender Type: Progress Notes Filed: 05/26/2025 10:31 Note Text: POPULATION HEALTH NAVIGATION OUTREACH Action/FYI Contacted patient to schedule HCC care gaps and health maintenance. 1st attempt: Call answered but patient was at fair and could not hear. 2nd attempt: My Chart message sent Upcoming appointment notes updated to include HCC gap closure. Topic Due (Y or N) Comments Annual Wellness Exam Yes PCP Follow up No Colorectal Cancer Screening No A1C No HTN/Controlling BP No HCC Yes Flu Vaccine Yes Updated appointment notes Yes Reason for Outreach Care Gap/HCC or Scheduling Wellness Visits Care Gaps due: Medicare Annual Wellness Visit Flu Vaccine Patient Contacted: Spoke to patient/parent/or legal guardian Patient identified by name and : Yes Care Gap/HCC/Scheduling Wellness actions taken: Updated appointment note HCC related Navigation Signature: Merari Gaspar MA May 26, 2025 10:29 AM [facility] 05-26-2025 History of Present illness Narrative POPULATION HEALTH NAVIGATION OUTREACH Action/FYI Contacted patient to schedule HCC care gaps and health maintenance. 1st attempt: Call answered but patient was at fair and could not hear. 2nd attempt: My Chart message sent Upcoming appointment notes updated to include HCC gap closure. Topic Due (Y or N) Comments Annual Wellness Exam Yes PCP Follow up No Colorectal Cancer Screening No A1C No HTN/Controlling BP No HCC Yes Flu Vaccine Yes Updated appointment notes Yes Reason for Outreach Care Gap/HCC or Scheduling Wellness Visits Care Gaps due: Medicare Annual Wellness Visit Flu Vaccine Patient Contacted: Spoke to patient/parent/or legal guardian Patient identified by name and : Yes Care Gap/HCC/Scheduling Wellness actions taken: Updated appointment note HCC related Navigation Signature: Merari Gaspar MA May 26, 2025 10:29 AM documented in this encounter [place] 05-26-2025 Note Patient Outreach (FAISAL TNAV) TOSHA SPANN ([id number]) 1945 M Date Time Provider Department 05/26/25 MERARI GASPAR During your visit today, we recorded the following information about you: Merari Gaspar MA 05/26/2025 10:31 AM Signed POPULATION HEALTH NAVIGATION OUTREACH Action/FYI Contacted patient to schedule HCC care gaps and health maintenance. 1st attempt: Call answered but patient was at fair and could not hear. 2nd attempt: My Chart message sent Upcoming appointment notes updated to include HCC gap closure. Topic Due (Y or N) Comments Annual Wellness Exam Yes PCP Follow up No Colorectal Cancer Screening No A1C No HTN/Controlling BP No HCC Yes Flu Vaccine Yes Updated appointment notes Yes Reason for Outreach Care Gap/HCC or Scheduling Wellness Visits Care Gaps due: Medicare Annual Wellness Visit Flu Vaccine Patient Contacted: Spoke to patient/parent/or legal guardian Patient identified by name and : Yes Care Gap/HCC/Scheduling Wellness actions taken: Updated appointment note HCC related Navigation Signature: Merari Gaspar MA May 26, 2025 10:29 AM Allergies As of Date: 05/26/2025 Noted Allergy Reaction FLOMAX (TAMSULOSIN HCL) 06/10/2011 4 - Hives PERCOCET (OXYCODONE-ACETAMINOPHEN) 8 - GI Upset Comments: Pt gets severe Nausea;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 BARIUM SULFATE 03/16/2015 4 - Hives 9 - Itching Comments: Pt has had barium multiple times in the past with no reaction. Only reaction one time CARAFATE (SUCRALFATE) 04/23/2015 8 - GI Upset Comments: worsening of chest pain and IBS symptoms PENICILLINS 05/11/2005 Comments: unknown -childhood ERYTHROMYCIN 05/11/2005 8 - GI Upset Comments: only PO is problematic Date Reviewed: 01/21/2025 Reviewed by: Grecia Rea LPN - Fully Assessed Reason for Visit: Population Health Navigation Outreach [3910] Cmt: [place]/Workbench/ACO Prescriptions as of 05/26/2025 - fluticasone (FLONASE) 50 mcg/actuation nasal spray Use 2 sprays in each nostril once daily as needed. - amLODIPine (NORVASC) 5 mg tablet Take 1 tablet by mouth once daily. - polyethylene glycol 3350 17 gram packet Take 17 g by mouth once daily. Dissolve dose in 4 - 8 ounces of liquid and take as directed. At bedtime with citracel - methylcellulose, with sugar, (CITRUCEL, SUCROSE,) oral powder Take 1 scoop by mouth once daily. Along with miralax before bed - mupirocin (BACTROBAN) 2 % ointment Apply 1 application to affected area three times a day. In each nostril - propranolol ER (INDERAL LA) 120 mg 24 hr capsule Take 1 capsule by mouth once daily. - omeprazole (PRILOSEC) 40 mg capsule Take 1 capsule by mouth two times a day. - metFORMIN ER (GLUCOPHAGE XR) 500 mg 24 hr tablet Take 1 tablet by mouth daily with breakfast. - traZODone (DESYREL) 50 mg tablet Take 0.5-1 tablets by mouth daily at bedtime. For insomnia and depression - losartan (COZAAR) 50 mg tablet take 1 tablet twice daily - ipratropium bromide (ATROVENT) 42 mcg (0.06 %) nasal spray Use 2 Sprays in the nose daily at bedtime. - betamethasone dipropionate, augmented (DIPROLENE) 0.05 % cream APPLY TO HANDS ONCE DAILY AT NIGHT WHEN FLARED, COVER WITH COTTON GLOVES OVERNIGHT - calcium citrate/vitamin D3 (CALCIUM CITRATE + D ORAL) Take 1 tablet by mouth once daily. - ibuprofen (ADVIL) 200 mg tablet Take 400 mg by mouth two times a day. Takes 3 tablets twice a day - acetaminophen (TYLENOL) 325 mg cap Take 650 mg by mouth once daily. - Ascorbic Acid (VITAMIN C) 1,000 mg tablet Take 1,000 mg by mouth once daily. - fluticasone propionate (FLOVENT INHALATION) Inhale as instructed as needed. - loratadine (CLARITIN) 10 mg tablet Take 10 mg by mouth once daily. - L.acidophilus-L.rhamnosus (PROBIOTIC) 15 billion cell capsule Take 1 capsule by mouth once daily. - vitamin B complex (B COMPLEX 1 ORAL) Take 1 tablet by mouth once daily. - multivitamin with minerals (DAILY MULTIVITAMIN-MINERALS) tablet Take 1 tablet by mouth once daily. - melatonin 5 mg tablet Take 5 mg by mouth at bedtime as needed for insomnia. - simethicone (GAS-X ORAL) Take 1 Capful by mouth once daily. - dicyclomine (BENTYL) 20 mg tablet Take 1 tablet by mouth once daily. - ondansetron (ZOFRAN) 4 mg tablet Take 1 tablet by mouth every 8 hours as needed for nausea/vomiting. - Blood-Glucose Meter 1 Device as directed. Test Three times a day. Before breakfast, lunch and before bedtime. - Blood Glucose Control, Normal soln 1 Ampule as directed. - blood sugar diagnostic test strip Use with blood glucose test 3 times daily, Insulin Dep? No - Lancets lancets Use with blood glucose test 3 times daily. Insulin Dep? No - alcohol swabs Use with blood glucose test 3 times daily. Insulin Dep? No - docusate sodium (more content not included)... [facility] 04-05-2025 Telephone encounter Note Patient notified Gretchen Wilder MA [place] 04-05-2025 Miscellaneous Notes Patient notified Gretchen Wilder MA The following approved medication requests have been transmitted electronically. Requested Prescriptions Signed Prescriptions Disp Refills fluticasone (FLONASE) 50 mcg/actuation nasal spray 3 each 3 Sig: Use 2 sprays in each nostril once daily as needed. Authorizing Provider: NEVIN MARQUEZ MD Okay 10mg melatonin but if causes issues with increased insomnia, decrease dose. May get at another pharmacy. Patient calling and is asking if it is ok for patient to take 10 mg Melatonin? Pharmacy had only 10 of Melatonin. Patient also needing a refill of Flonase sent to [facility]. The patient has been identified by name and date of : Yes Caregiver verified no other encounters exist for this prescription request: Yes Caregiver confirmed with patient/requestor that no other refills are due, in the near future, with this provider at this time: Yes The last office visit in the department: 01/21/2025 Does the patient have a future office visit with this provider/department: Yes 07/22/2025 Requested Prescriptions Pending Prescriptions Disp Refills fluticasone (FLONASE) 50 mcg/actuation nasal spray Sig: Use 2 sprays in each nostril once daily as needed. Christianne Paulino RN April 04, 2025 10:30 AM documented in this encounter [place] 04-04-2025 Telephone encounter Note The following approved medication requests have been transmitted electronically. Requested Prescriptions Signed Prescriptions Disp Refills fluticasone (FLONASE) 50 mcg/actuation nasal spray 3 each 3 Sig: Use 2 sprays in each nostril once daily as needed. Authorizing Provider: NEVIN MARQUEZ MD Okay 10mg melatonin but if causes issues with increased insomnia, decrease dose. May get at another pharmacy. [place] 04-04-2025 Telephone encounter Note Patient calling and is asking if it is ok for patient to take 10 mg Melatonin? Pharmacy had only 10 of Melatonin. Patient also needing a refill of Flonase sent to [facility]. The patient has been identified by name and date of : Yes Caregiver verified no other encounters exist for this prescription request: Yes Caregiver confirmed with patient/requestor that no other refills are due, in the near future, with this provider at this time: Yes The last office visit in the department: 01/21/2025 Does the patient have a future office visit with this provider/department: Yes 07/22/2025 Requested Prescriptions Pending Prescriptions Disp Refills fluticasone (FLONASE) 50 mcg/actuation nasal spray Sig: Use 2 sprays in each nostril once daily as needed. Christianne Paulino RN April 04, 2025 10:30 AM [place] 01-21-2025 Note HNO ID: [id number] Author: NEVIN MARQUEZ MD Service: ? Author Type: Physician Type: Progress Notes Filed: 02/03/2025 01:51 Note Text: This note was created using Ecorithmriter. Subjective Tosha Sapnn is a 79 year old male. Patient presents with: F/U 6 Month Art is a 79-year-old male with a history of chronic back pain, neuropathy, and impaired fasting glucose, presenting for a 6-month follow-up. Art reports ongoing chronic back pain and neuropathy. He has a scheduled injection next week, which will target a higher spinal level than previous injections. He notes persistent burning pain in his knee, which his clinician attributes to neuropathy. He monitors his blood glucose weekly, with recent readings typically around 100-105 mg/dL. However, this Monday, his blood glucose was 120 mg/dL, which he attributes to increased stress and lack of sleep due to the process of moving to a new house. He reports waking up at 0300 with thoughts about the move, but denies feeling worried. He is currently transitioning from a 3,200 sq ft house to a 1,400 sq [address] house and is in the process of downsizing his belongings, including furniture, tools, and personal items. He describes the process as stressful but manageable, stating, I'm not worried, God, I started praying about this about a year ago. He is also dealing with the financial implications of owning two houses temporarily. He reports using Flonase again due to severe spring allergies, but is not using Atrovent nasal spray due to side effects of dryness. He is currently taking a half tablet of trazodone nightly, with a prescription allowing for up to one tablet. He has a supply of losartan and denies needing a refill at this time. He reports drinking a lot of coffee. PAST MEDICAL HISTORY Diagnosis Date Abnormal REM sleep REM dependent ALFONSO Arthritis BPH with obstruction/lower urinary tract symptoms CAD (coronary artery disease) Diabetes (HCC) Diarrhea 05/11/2005 Enthesopathy of hip region 05/11/2005 Esophageal reflux 05/11/2005 Hemorrhage of gastrointestinal tract, unspecified 05/11/2005 History of transfusion Pt thinks maybe w/ his open heart;He possibly had a transfusion IFG (impaired fasting glucose) Intestinal infection due to campylobacter 05/11/2005 Migraine without aura, without mention of intractable migraine without mention of status migrainosus 05/11/2005 Propranolol effective for prevention Motion sickness Nocturnal hypoxemia Diagnosed on PSG Primary hypertension 05/11/2005 PUD (peptic ulcer disease) 1968 conservative tx while in service Pure hypercholesterolemia 05/11/2005 Sciatica 05/11/2005 Sleep apnea APAP uses nightly;Pt repors he's a very sallow breather Thyroid disease Current Outpatient Medications Medication Sig amLODIPine (NORVASC) 5 mg tablet Take 1 tablet by mouth once daily. polyethylene glycol 3350 17 gram packet Take 17 g by mouth once daily. Dissolve dose in 4 - 8 ounces of liquid and take as directed. At bedtime with citracel methylcellulose, with sugar, (CITRUCEL, SUCROSE,) oral powder Take 1 scoop by mouth once daily. Along with miralax before bed propranolol ER (INDERAL LA) 120 mg 24 hr capsule Take 1 capsule by mouth once daily. omeprazole (PRILOSEC) 40 mg capsule Take 1 capsule by mouth two times a day. metFORMIN ER (GLUCOPHAGE XR) 500 mg 24 hr tablet Take 1 tablet by mouth daily with breakfast. traZODone (DESYREL) 50 mg tablet Take 0.5-1 tablets by mouth daily at bedtime. For insomnia and depression losartan (COZAAR) 50 mg tablet take 1 tablet twice daily fluticasone (FLONASE) 50 mcg/actuation nasal spray Use 2 Sprays in each nostril once daily as needed. betamethasone dipropionate, augmented (DIPROLENE) 0.05 % cream APPLY TO HANDS ONCE DAILY AT NIGHT WHEN FLARED, COVER WITH COTTON GLOVES OVERNIGHT calcium citrate/vitamin D3 (CALCIUM CITRATE + D ORAL) Take 1 tablet by mouth once daily. ibuprofen (ADVIL) 200 mg tablet Take 400 mg by mouth two times a day. Takes 3 tablets twice a day acetaminophen (TYLENOL) 325 mg cap Take 650 mg by mouth once daily. Ascorbic Acid (VITAMIN C) 1,000 mg tablet Take 1,000 mg by mouth once daily. fluticasone propionate (FLOVENT INHALATION) Inhale as instructed as needed. L.acidophilus-L.rhamnosus (PROBIOTIC) 15 billion cell capsule Take 1 capsule by mouth once daily. vitamin B complex (B COMPLEX 1 ORAL) Take 1 tablet by mouth once daily. multivitamin with minerals (DAILY MULTIVITAMIN-MINERALS) tablet Take 1 tablet by mouth once daily. melatonin 5 mg tablet Take 5 mg by mouth at bedtime as needed for insomnia. simethicone (GAS-X ORAL) Take 1 Capful by mouth once daily. dicyclomine (BENTYL) 20 mg tablet Take 1 tablet by mouth once daily. ondansetron (ZOFRAN) 4 mg tablet Take 1 tablet by mouth every 8 hours as needed for nausea/vomiting. Blood-Glucose Meter 1 Device as directed. Test Three times a day. Before kerry (more content not included)... [facility] 01-21-2025 History of Present illness Narrative This note was created using SourceClearter. Subjective Tosha Spann is a 79 year old male. Patient presents with: F/U 6 Month Art is a 79-year-old male with a history of chronic back pain, neuropathy, and impaired fasting glucose, presenting for a 6-month follow-up. Art reports ongoing chronic back pain and neuropathy. He has a scheduled injection next week, which will target a higher spinal level than previous injections. He notes persistent burning pain in his knee, which his clinician attributes to neuropathy. He monitors his blood glucose weekly, with recent readings typically around 100-105 mg/dL. However, this Monday, his blood glucose was 120 mg/dL, which he attributes to increased stress and lack of sleep due to the process of moving to a new house. He reports waking up at 0300 with thoughts about the move, but denies feeling worried. He is currently transitioning from a 3,200 sq [address] house to a 1,400 sq [address] house and is in the process of downsizing his belongings, including furniture, tools, and personal items. He describes the process as stressful but manageable, stating, I'm not worried, God, I started praying about this about a year ago. He is also dealing with the financial implications of owning two houses temporarily. He reports using Flonase again due to severe spring allergies, but is not using Atrovent nasal spray due to side effects of dryness. He is currently taking a half tablet of trazodone nightly, with a prescription allowing for up to one tablet. He has a supply of losartan and denies needing a refill at this time. He reports drinking a lot of coffee. PAST MEDICAL HISTORY Diagnosis Date Abnormal REM sleep REM dependent ALFONSO Arthritis BPH with obstruction/lower urinary tract symptoms CAD (coronary artery disease) Diabetes (HCC) Diarrhea 05/11/2005 Enthesopathy of hip region 05/11/2005 Esophageal reflux 05/11/2005 Hemorrhage of gastrointestinal tract, unspecified 05/11/2005 History of transfusion Pt thinks maybe w/ his open heart;He possibly had a transfusion IFG (impaired fasting glucose) Intestinal infection due to campylobacter 05/11/2005 Migraine without aura, without mention of intractable migraine without mention of status migrainosus 05/11/2005 Propranolol effective for prevention Motion sickness Nocturnal hypoxemia Diagnosed on PSG Primary hypertension 05/11/2005 PUD (peptic ulcer disease) 1968 conservative tx while in service Pure hypercholesterolemia 05/11/2005 Sciatica 05/11/2005 Sleep apnea APAP uses nightly;Pt repors he's a very sallow breather Thyroid disease Current Outpatient Medications Medication Sig amLODIPine (NORVASC) 5 mg tablet Take 1 tablet by mouth once daily. polyethylene glycol 3350 17 gram packet Take 17 g by mouth once daily. Dissolve dose in 4 - 8 ounces of liquid and take as directed. At bedtime with citracel methylcellulose, with sugar, (CITRUCEL, SUCROSE,) oral powder Take 1 scoop by mouth once daily. Along with miralax before bed propranolol ER (INDERAL LA) 120 mg 24 hr capsule Take 1 capsule by mouth once daily. omeprazole (PRILOSEC) 40 mg capsule Take 1 capsule by mouth two times a day. metFORMIN ER (GLUCOPHAGE XR) 500 mg 24 hr tablet Take 1 tablet by mouth daily with breakfast. traZODone (DESYREL) 50 mg tablet Take 0.5-1 tablets by mouth daily at bedtime. For insomnia and depression losartan (COZAAR) 50 mg tablet take 1 tablet twice daily fluticasone (FLONASE) 50 mcg/actuation nasal spray Use 2 Sprays in each nostril once daily as needed. betamethasone dipropionate, augmented (DIPROLENE) 0.05 % cream APPLY TO HANDS ONCE DAILY AT NIGHT WHEN FLARED, COVER WITH COTTON GLOVES OVERNIGHT calcium citrate/vitamin D3 (CALCIUM CITRATE + D ORAL) Take 1 tablet by mouth once daily. ibuprofen (ADVIL) 200 mg tablet Take 400 mg by mouth two times a day. Takes 3 tablets twice a day acetaminophen (TYLENOL) 325 mg cap Take 650 mg by mouth once daily. Ascorbic Acid (VITAMIN C) 1,000 mg tablet Take 1,000 mg by mouth once daily. fluticasone propionate (FLOVENT INHALATION) Inhale as instructed as needed. L.acidophilus-L.rhamnosus (PROBIOTIC) 15 billion cell capsule Take 1 capsule by mouth once daily. vitamin B complex (B COMPLEX 1 ORAL) Take 1 tablet by mouth once daily. multivitamin with minerals (DAILY MULTIVITAMIN-MINERALS) tablet Take 1 tablet by mouth once daily. melatonin 5 mg tablet Take 5 mg by mouth at bedtime as needed for insomnia. simethicone (GAS-X ORAL) Take 1 Capful by mouth once daily. dicyclomine (BENTYL) 20 mg tablet Take 1 tablet by mouth once daily. ondansetron (ZOFRAN) 4 mg tablet Take 1 tablet by mouth every 8 hours as needed for nausea/vomiting. Blood-Glucose Meter 1 Device as directed. Test Three times a day. Before breakfast, lunch and before bedtime. Blood Glucose Control, Normal soln 1 Ampule as directed. blood sugar diagnostic test strip Use with blood glucose test 3 times daily, Insulin Dep? No Lancets lancets Use with blood glucose test 3 times daily. Insulin Dep? No alcohol swabs Use with blood glucose test 3 times daily. Insulin Dep? No docusate sodium (COLACE) 100 mg capsule Take 100 mg by mouth once daily. ipratropium 20 mcg-albuterol 100 mcg (COMBIVENT RESPIMAT) 20-100 mcg/actuation inhaler Inhale 1 Puff as instructed every 6 hours as needed. promethazine (PHENERGAN) 25 mg tablet Take 1 tablet by mouth every 8 hours as needed. FOR NAUSEA albuterol HFA (VENTOLIN HFA) 90 mcg/actuation inhaler Inhale 2 Puffs as instructed every 4 hours as needed for Wheezing/Shortness of Breath. mupirocin (BACTROBAN) 2 % ointment Apply 1 application to affected area three times a day. In each nostril (Patient not taking: Reported on 12/24/2024) ipratropium bromide (ATROVENT) 42 mcg (0.06 %) nasal spray Use 2 Sprays in the nose daily at bedtime. (Patient not taking: Reported on 10/07/2024) loratadine (CLARITIN) 10 mg tablet Take 10 mg by mouth once daily. (Patient not taking: Reported on 12/24/2024) No current facility-administered medications for this visit. Review of Systems Objective BP 138/72 Pulse 64 Resp 16 Wt 85 kg (187 lb 6.3 oz) BMI 27.99 kg/m Last 5 Encounter Wt Readings: Date: Wt: 01/21/2025 85 kg (187 lb 6.3 oz) 12/24/2024 78.5 kg (173 lb 1 oz) 10/07/2024 79.5 kg (175 lb 4.3 oz) 08/12/2024 78.5 kg (173 lb) 07/25/2024 78.8 kg (173 lb 11.6 oz) No waist measurement recorded Estimated body mass index is 27.99 kg/m as calculated from the following: Height as of 10/07/24: 174.2 cm (5' 8.6). Weight as of this encounter: 85 kg (187 lb 6.3 oz). Last 5 Encounter BP Readings: Date: BP: 01/21/2025 138/72 12/24/2024 120/60 10/22/2024 153/87[pt states pain is increasing BP[ 10/07/2024 122/78 08/13/2024 162/83 Physical Exam Vitals reviewed. Constitutional: Appearance: Normal appearance. Eyes: Conjunctiva/sclera: Conjunctivae normal. Cardiovascular: Rate and Rhythm: Normal rate and regular rhythm. Heart sounds: Normal heart sounds. Pulmonary: Effort: Pulmonary effort is normal. Breath sounds: Normal breath sounds. Musculoskeletal: Right lower leg: No edema. Left lower leg: No edema. Skin: General: Skin is warm and dry. Neurological: General: No focal deficit present. Mental Status: He is alert and oriented to person, place, and time. Psychiatric: Mood and Affect: Mood normal. Behavior: Behavior normal. Thought Content: Thought content normal. Judgment: Judgment normal. Latest Ref Rng 07/24/2024 12/24/2024 WBC 3.70 - 11.00 k/uL 5.65 6.14 RBC 4.20 - 6.00 m/uL 4.18 (L) 4.32 Hemoglobin 13.0 - 17.0 g/dL 13.0 13.6 Hematocrit 39.0 - 51.0 % 39.4 39.9 MCV 80.0 - 100.0 fL 94.3 92.4 MCH 26.0 - 34.0 pg 31.1 31.5 MCHC 30.5 - 36.0 g/dL 33.0 34.1 RDW-CV 11.5 - 15.0 % 12.6 12.9 Platelet Count 150 - 400 k/uL 297 315 MPV 9.0 - 12.7 fL 9.0 8.7 (L) Neut% % 58.9 Abs Neut (ANC) 1.45 - 7.50 k/uL 3.62 Lymph% % 27.4 Abs Lymph 1.00 - 4.00 k/uL 1.68 Lenoir% % 8.8 Abs Lenoir <0.87 k/uL 0.54 Eosin% % 3.4 Abs Eosin <0.46 k/uL 0.21 Baso% % 1.0 Abs Baso <0.11 k/uL 0.06 Immature Gran % % 0.5 IMMATURE GRANS (ABS) <0.10 k/uL 0.03 NRBC /100 WBC 0.0 Absolute nRBC <0.01 k/uL <0.01 <0.01 DTYPE Auto Protein, Total 6.3 - 8.0 g/dL 7.2 7.7 Albumin 3.9 - 4.9 g/dL 4.8 5.0 (H) Calcium 8.5 - 10.2 mg/dL 9.9 10.2 Bilirubin, Total 0.2 - 1.3 mg/dL 0.4 0.2 Alkaline Phosphatase 38 - 113 U/L 43 45 AST 14 - 40 U/L 14 15 ALT 10 - 54 U/L 14 19 Glucose 74 - 99 mg/dL 93 115 (H) BUN 9 - 24 mg/dL 20 25 (H) Creatinine 0.73 - 1.22 mg/dL 0.89 1.27 (H) Sodium 136 - 144 mmol/L 133 (L) 137 Potassium 3.7 - 5.1 mmol/L 4.3 4.9 Chloride 98 - 107 mmol/L 96 (L) 100 CO2 22 - 30 mmol/L 27 27 Anion Gap 8 - 15 mmol/L 10 10 eGFR >=60 mL/min/1.73m 88 58 (L) Cholesterol, Total <200 mg/dL 144 Triglyceride <150 mg/dL 72 HDL Cholesterol >39 mg/dL 59 Non HDL Cholesterol <130 mg/dL 85 Fasting Time hrs 12 VLDL Cholesterol <30 mg/dL 14 TC:HDL Ratio <5.10 2.44 LDL Cholesterol, Calculated <100 mg/dL 71 LDL:HDL Ratio <2.54 1.20 Hemoglobin A1C 4.3 - 5.6 % 5.5 5.5 Estimated Average Glucose mg/dL 111 111 Magnesium 1.7 - 2.3 mg/dL 2.4 (H) CK 51 - 298 U/L 66 Legend: (L) Low (H) High Assessment and Plan Nevin Marquez MD Recording using Maana software for draft documentation of the visit was discussed with the 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 Patient/authorized textile machinery sales representative agreed to proceed documented in this encounter [place] 01-06-2025 Telephone encounter Note Physician: emiliana estevez Call from patient requesting refill. Please E-Scribe Requested Prescriptions Pending Prescriptions Disp Refills amLODIPine (NORVASC) 5 mg tablet 90 tablet 3 Sig: Take 1 tablet by mouth once daily. Pharmacy Name: [facility] Phone #: [phone] Please call patient when sent in. Patient is currently out of medication. Sharda Hanson LPN [place] Work Phone: 01-06-2025 Miscellaneous Notes Physician: emiliana estevez Call from patient requesting refill. Please E-Scribe Requested Prescriptions Pending Prescriptions Disp Refills amLODIPine (NORVASC) 5 mg tablet 90 tablet 3 Sig: Take 1 tablet by mouth once daily. Pharmacy Name: [facility] Phone #: [phone] Please call patient when sent in. Patient is currently out of medication. Sharda Hanson LPN documented in this encounter [place] 12-24-2024 Instructions Nevin Marquez MD - 12/24/2024 4:40 PM EDT - Take magnesium glycinate 200-400 mg at bedtime to help prevent leg cramps and improve sleep; available [id number]. - Perform isometric exercises for your legs daily, especially before bed, to help reduce muscle cramps. - Complete lab tests, including comprehensive metabolic panel, magnesium level, and CK level, as ordered. - Next follow-up appointment is on December 18. documented in this encounter [place] 12-24-2024 Note HNO ID: [id number] Author: NEVIN MARQUEZ MD Service: ? Author Type: Physician Type: Progress Notes Filed: 12/27/2024 20:46 Note Text: This note was created using SourceClearter. Subjective Tosha Spann is a 79 year old male. Patient presents with: severe cramping in flynn legs , states this happened a few d: Stopped the simvastain and using electrolytes and still having cramping. Hong is a 79-year-old male with a history of hypercholesterolemia, presenting with worsening nocturnal leg cramps. Hong reports a longstanding history of nocturnal leg cramps, which have recently worsened in severity and frequency. He describes the cramps as so severe that he is unable to stand or put weight on his legs when they occur. The cramps are primarily located in the inner thighs and calves, and can affect one or both legs simultaneously. He notes a sensation of his leg deflating and moving after the cramp subsides. He also reports a constant jittery movement or twitching of his legs, which he can control temporarily but recurs when he stops consciously suppressing it. He denies any other muscle involvement outside of his legs. Hong has a history of hypercholesterolemia and has been on various statins for years, most recently simvastatin, which was reduced to once a week by his previous physician, Dr. Peck, due to concerns that it might be contributing to the leg cramps. He stopped taking simvastatin completely 2 weeks ago, but reports that the cramps have not improved and have actually worsened. He has tried various interventions to alleviate the cramps, including taking electrolyte supplements containing potassium, sodium, and magnesium, which seemed to help during the summer but are no longer effective. He has also tried topical treatments like TheraWorks and stretching exercises before bed, including deep knee bends, but these have not provided relief. He has a history of taking magnesium and zinc supplements in the past, which caused gastrointestinal upset. Art also reports a history of alternating constipation and diarrhea, for which he is currently taking a regimen of Miralax and Citrucel as prescribed by Dr. Mak. He notes that his bowel movements are regular, but some days are more active than others, which he attributes to dietary choices such as eating refried beans. He mentions that he is in the process of buying a new house and downsizing from his current home, which he finds stressful but does not believe is contributing to his leg cramps. He reports that his sleep is disrupted by the leg cramps, but he is able to fall asleep quickly and does not wake up to urinate. PAST MEDICAL HISTORY Diagnosis Date Abnormal REM sleep REM dependent ALFONSO Arthritis BPH with obstruction/lower urinary tract symptoms CAD (coronary artery disease) Diabetes (HCC) Diarrhea 05/11/2005 Enthesopathy of hip region 05/11/2005 Esophageal reflux 05/11/2005 Hemorrhage of gastrointestinal tract, unspecified 05/11/2005 History of transfusion Pt thinks maybe w/ his open heart;He possibly had a transfusion IFG (impaired fasting glucose) Intestinal infection due to campylobacter 05/11/2005 Migraine without aura, without mention of intractable migraine without mention of status migrainosus 05/11/2005 Propranolol effective for prevention Motion sickness Nocturnal hypoxemia Diagnosed on PSG Primary hypertension 05/11/2005 PUD (peptic ulcer disease) 1968 conservative tx while in service Pure hypercholesterolemia 05/11/2005 Sciatica 05/11/2005 Sleep apnea APAP uses nightly;Pt repors he's a very sallow breather Thyroid disease Current Outpatient Medications Medication Sig propranolol ER (INDERAL LA) 120 mg 24 hr capsule Take 1 capsule by mouth once daily. omeprazole (PRILOSEC) 40 mg capsule Take 1 capsule by mouth two times a day. metFORMIN ER (GLUCOPHAGE XR) 500 mg 24 hr tablet Take 1 tablet by mouth daily with breakfast. traZODone (DESYREL) 50 mg tablet Take 0.5-1 tablets by mouth daily at bedtime. For insomnia and depression losartan (COZAAR) 50 mg tablet take 1 tablet twice daily amLODIPine (NORVASC) 5 mg tablet Take 1 tablet by mouth once daily. betamethasone dipropionate, augmented (DIPROLENE) 0.05 % cream APPLY TO HANDS ONCE DAILY AT NIGHT WHEN FLARED, COVER WITH COTTON GLOVES OVERNIGHT calcium citrate/vitamin D3 (CALCIUM CITRATE + D ORAL) Take 1 tablet by mouth once daily. ibuprofen (ADVIL) 200 mg tablet Take 400 mg by mouth two times a day. Takes 3 tablets twice a day acetaminophen (TYLENOL) 325 mg cap Take 650 mg by mouth once daily. Ascorbic Acid (VITAMIN C) 1,000 mg tablet Take 1,000 mg by mouth once daily. fluticasone propionate (FLOVENT INHALATION) Inhale as instructed as needed. L.acidophilus-L.rhamnosus (PROBIOTIC) 15 billion cell capsule Take 1 capsule by mouth once daily. vitamin B complex (B COMPLEX 1 ORAL) Take 1 tablet by mouth once daily (more content not included)... [facility] 12-24-2024 History of Present illness Narrative This note was created using SourceClearter. Subjective Tosha Spann is a 79 year old male. Patient presents with: severe cramping in flynn legs , states this happened a few d: Stopped the simvastain and using electrolytes and still having cramping. Hong is a 79-year-old male with a history of hypercholesterolemia, presenting with worsening nocturnal leg cramps. Hong reports a longstanding history of nocturnal leg cramps, which have recently worsened in severity and frequency. He describes the cramps as so severe that he is unable to stand or put weight on his legs when they occur. The cramps are primarily located in the inner thighs and calves, and can affect one or both legs simultaneously. He notes a sensation of his leg deflating and moving after the cramp subsides. He also reports a constant jittery movement or twitching of his legs, which he can control temporarily but recurs when he stops consciously suppressing it. He denies any other muscle involvement outside of his legs. Hong has a history of hypercholesterolemia and has been on various statins for years, most recently simvastatin, which was reduced to once a week by his previous physician, Dr. Peck, due to concerns that it might be contributing to the leg cramps. He stopped taking simvastatin completely 2 weeks ago, but reports that the cramps have not improved and have actually worsened. He has tried various interventions to alleviate the cramps, including taking electrolyte supplements containing potassium, sodium, and magnesium, which seemed to help during the summer but are no longer effective. He has also tried topical treatments like TheraWorks and stretching exercises before bed, including deep knee bends, but these have not provided relief. He has a history of taking magnesium and zinc supplements in the past, which caused gastrointestinal upset. Hong also reports a history of alternating constipation and diarrhea, for which he is currently taking a regimen of Miralax and Citrucel as prescribed by Dr. Mak. He notes that his bowel movements are regular, but some days are more active than others, which he attributes to dietary choices such as eating refried beans. He mentions that he is in the process of buying a new house and downsizing from his current home, which he finds stressful but does not believe is contributing to his leg cramps. He reports that his sleep is disrupted by the leg cramps, but he is able to fall asleep quickly and does not wake up to urinate. PAST MEDICAL HISTORY Diagnosis Date Abnormal REM sleep REM dependent ALFONSO Arthritis BPH with obstruction/lower urinary tract symptoms CAD (coronary artery disease) Diabetes (HCC) Diarrhea 05/11/2005 Enthesopathy of hip region 05/11/2005 Esophageal reflux 05/11/2005 Hemorrhage of gastrointestinal tract, unspecified 05/11/2005 History of transfusion Pt thinks maybe w/ his open heart;He possibly had a transfusion IFG (impaired fasting glucose) Intestinal infection due to campylobacter 05/11/2005 Migraine without aura, without mention of intractable migraine without mention of status migrainosus 05/11/2005 Propranolol effective for prevention Motion sickness Nocturnal hypoxemia Diagnosed on PSG Primary hypertension 05/11/2005 PUD (peptic ulcer disease) 1968 conservative tx while in service Pure hypercholesterolemia 05/11/2005 Sciatica 05/11/2005 Sleep apnea APAP uses nightly;Pt repors he's a very sallow breather Thyroid disease Current Outpatient Medications Medication Sig propranolol ER (INDERAL LA) 120 mg 24 hr capsule Take 1 capsule by mouth once daily. omeprazole (PRILOSEC) 40 mg capsule Take 1 capsule by mouth two times a day. metFORMIN ER (GLUCOPHAGE XR) 500 mg 24 hr tablet Take 1 tablet by mouth daily with breakfast. traZODone (DESYREL) 50 mg tablet Take 0.5-1 tablets by mouth daily at bedtime. For insomnia and depression losartan (COZAAR) 50 mg tablet take 1 tablet twice daily amLODIPine (NORVASC) 5 mg tablet Take 1 tablet by mouth once daily. betamethasone dipropionate, augmented (DIPROLENE) 0.05 % cream APPLY TO HANDS ONCE DAILY AT NIGHT WHEN FLARED, COVER WITH COTTON GLOVES OVERNIGHT calcium citrate/vitamin D3 (CALCIUM CITRATE + D ORAL) Take 1 tablet by mouth once daily. ibuprofen (ADVIL) 200 mg tablet Take 400 mg by mouth two times a day. Takes 3 tablets twice a day acetaminophen (TYLENOL) 325 mg cap Take 650 mg by mouth once daily. Ascorbic Acid (VITAMIN C) 1,000 mg tablet Take 1,000 mg by mouth once daily. fluticasone propionate (FLOVENT INHALATION) Inhale as instructed as needed. L.acidophilus-L.rhamnosus (PROBIOTIC) 15 billion cell capsule Take 1 capsule by mouth once daily. vitamin B complex (B COMPLEX 1 ORAL) Take 1 tablet by mouth once daily. multivitamin with minerals (DAILY MULTIVITAMIN-MINERALS) tablet Take 1 tablet by mouth once daily. melatonin 5 mg tablet Take 5 mg by mouth at bedtime as needed for insomnia. simethicone (GAS-X ORAL) Take 1 Capful by mouth once daily. dicyclomine (BENTYL) 20 mg tablet Take 1 tablet by mouth once daily. ondansetron (ZOFRAN) 4 mg tablet Take 1 tablet by mouth every 8 hours as needed for nausea/vomiting. Blood-Glucose Meter 1 Device as directed. Test Three times a day. Before breakfast, lunch and before bedtime. Blood Glucose Control, Normal soln 1 Ampule as directed. blood sugar diagnostic test strip Use with blood glucose test 3 times daily, Insulin Dep? No Lancets lancets Use with blood glucose test 3 times daily. Insulin Dep? No alcohol swabs Use with blood glucose test 3 times daily. Insulin Dep? No docusate sodium (COLACE) 100 mg capsule Take 100 mg by mouth once daily. ipratropium 20 mcg-albuterol 100 mcg (COMBIVENT RESPIMAT) 20-100 mcg/actuation inhaler Inhale 1 Puff as instructed every 6 hours as needed. promethazine (PHENERGAN) 25 mg tablet Take 1 tablet by mouth every 8 hours as needed. FOR NAUSEA albuterol HFA (VENTOLIN HFA) 90 mcg/actuation inhaler Inhale 2 Puffs as instructed every 4 hours as needed for Wheezing/Shortness of Breath. polyethylene glycol 3350 17 gram packet Take 17 g by mouth once daily. Dissolve dose in 4 - 8 ounces of liquid and take as directed. At bedtime with citracel methylcellulose, with sugar, (CITRUCEL, SUCROSE,) oral powder Take 1 scoop by mouth once daily. Along with miralax before bed mupirocin (BACTROBAN) 2 % ointment Apply 1 application to affected area three times a day. In each nostril (Patient not taking: Reported on 12/24/2024) fluticasone (FLONASE) 50 mcg/actuation nasal spray Use 2 Sprays in each nostril once daily as needed. (Patient not taking: Reported on 12/24/2024) ipratropium bromide (ATROVENT) 42 mcg (0.06 %) nasal spray Use 2 Sprays in the nose daily at bedtime. (Patient not taking: Reported on 10/07/2024) loratadine (CLARITIN) 10 mg tablet Take 10 mg by mouth once daily. (Patient not taking: Reported on 12/24/2024) No current facility-administered medications for this visit. Review of Systems Objective BP 120/60 Pulse 72 Resp 16 Wt 78.5 kg (173 lb 1 oz) SpO2 96% BMI 25.85 kg/m Physical Exam Vitals reviewed. Constitutional: Appearance: Normal appearance. Eyes: Conjunctiva/sclera: Conjunctivae normal. Cardiovascular: Rate and Rhythm: Normal rate and regular rhythm. Heart sounds: Normal heart sounds. Pulmonary: Effort: Pulmonary effort is normal. Breath sounds: Normal breath sounds. Musculoskeletal: Right lower leg: No edema. Left lower leg: No edema. Skin: General: Skin is warm and dry. Neurological: General: No focal deficit present. Mental Status: He is alert and oriented to person, place, and time. Psychiatric: Attention and Perception: Attention and perception normal. Mood and Affect: Affect normal. Speech: Speech normal. Behavior: Behavior normal. Thought Content: Thought content normal. Cognition and Memory: Cognition normal. Judgment: Judgment normal. Comments: Dysthymic Latest Ref Rng 07/24/2024 12/24/2024 WBC 3.70 - 11.00 k/uL 5.65 6.14 RBC 4.20 - 6.00 m/uL 4.18 (L) 4.32 Hemoglobin 13.0 - 17.0 g/dL 13.0 13.6 Hematocrit 39.0 - 51.0 % 39.4 39.9 MCV 80.0 - 100.0 fL 94.3 92.4 MCH 26.0 - 34.0 pg 31.1 31.5 MCHC 30.5 - 36.0 g/dL 33.0 34.1 RDW-CV 11.5 - 15.0 % 12.6 12.9 Platelet Count 150 - 400 k/uL 297 315 MPV 9.0 - 12.7 fL 9.0 8.7 (L) Neut% % 58.9 Abs Neut (ANC) 1.45 - 7.50 k/uL 3.62 Lymph% % 27.4 Abs Lymph 1.00 - 4.00 k/uL 1.68 Lenoir% % 8.8 Abs Lenoir <0.87 k/uL 0.54 Eosin% % 3.4 Abs Eosin <0.46 k/uL 0.21 Baso% % 1.0 Abs Baso <0.11 k/uL 0.06 Immature Gran % % 0.5 IMMATURE GRANS (ABS) <0.10 k/uL 0.03 NRBC /100 WBC 0.0 Absolute nRBC <0.01 k/uL <0.01 <0.01 DTYPE Auto Protein, Total 6.3 - 8.0 g/dL 7.2 7.7 Albumin 3.9 - 4.9 g/dL 4.8 5.0 (H) Calcium 8.5 - 10.2 mg/dL 9.9 10.2 Bilirubin, Total 0.2 - 1.3 mg/dL 0.4 0.2 Alkaline Phosphatase 38 - 113 U/L 43 45 AST 14 - 40 U/L 14 15 ALT 10 - 54 U/L 14 19 Glucose 74 - 99 mg/dL 93 115 (H) BUN 9 - 24 mg/dL 20 25 (H) Creatinine 0.73 - 1.22 mg/dL 0.89 1.27 (H) Sodium 136 - 144 mmol/L 133 (L) 137 Potassium 3.7 - 5.1 mmol/L 4.3 4.9 Chloride 98 - 107 mmol/L 96 (L) 100 CO2 22 - 30 mmol/L 27 27 Anion Gap 8 - 15 mmol/L 10 10 eGFR >=60 mL/min/1.73m 88 58 (L) Cholesterol, Total <200 mg/dL 144 Triglyceride <150 mg/dL 72 HDL Cholesterol >39 mg/dL 59 Non HDL Cholesterol <130 mg/dL 85 Fasting Time hrs 12 VLDL Cholesterol <30 mg/dL 14 TC:HDL Ratio <5.10 2.44 LDL Cholesterol <100 mg/dL 71 LDL:HDL Ratio <2.54 1.20 Hemoglobin A1C 4.3 - 5.6 % 5.5 5.5 Estimated Average Glucose mg/dL 111 111 Magnesium 1.7 - 2.3 mg/dL 2.4 (H) CK 51 - 298 U/L 66 Legend: (L) Low (H) High Assessment and Plan # Nocturnal leg cramps (G47.62) - Severe nocturnal leg cramps affecting inner thighs and calves, unresponsive to current management. - Previous reduction of simvastatin to once weekly by Dr. Peck did not alleviate symptoms. - Current electrolyte supplementation includes 1000 mg sodium, 60 mg potassium, and magnesium per packet. - Educated on isometric exercises to prevent muscle shortening and cramping. - Ordered comprehensive metabolic panel, magnesium level, and CK to assess electrolyte imbalances and muscle function. - Recommended magnesium glycinate 200-400 mg at bedtime, available OTC, to improve muscle relaxation and sleep. - Patient to follow-up with lab results. # Type 2 diabetes mellitus without complication, without long-term current use of insulin (HCC) (E11.9) - Hemoglobin A1c ordered to monitor glycemic control. # ALFONSO (obstructive sleep apnea) (G47.33) Needing order for supplies taken care of. Has been using CPAP routinely and benefiting from use. Reviewed compliance report. Order signed and faxed. # Alternating constipation and diarrhea (R19.8) - Managed with Miralax and Citrucel at bedtime. - Advised to adjust regimen based on dietary intake and bowel movement frequency. # Psychophysiological insomnia (F51.04) - Sleep disrupted by leg cramps; otherwise maintains regular sleep schedule. - Magnesium glycinate may aid in improving sleep quality. # Restless legs syndrome (G25.81) - Exhibits constant leg movements while sitting and lying down, suggestive of restless legs syndrome. - Magnesium glycinate may provide symptomatic relief. Nevin Marquez MD documented in this encounter [place] 12-20-2024 Telephone encounter Note Order has been faxed to [facility] at number below as requested. [place] 12-20-2024 Miscellaneous Notes Order has been faxed to [facility] at number below as requested. OK Patient calling asking for new order for CPAP supplies to be sent to [facility]. His current rx expires on 01/07/2025. He said he gets nasal pillows monthly and head gear every 6 months. His last sleep study was done 08/18/2022. Patient thought he mentioned to PCP at his last visit, needing order. Pending order, fax to [facility] at [phone]. Please advise documented in this encounter [place] 12-20-2024 Telephone encounter Note [place] 12-20-2024 Telephone encounter Note Patient calling asking for new order for CPAP supplies to be sent to [facility]. His current rx expires on 01/07/2025. He said he gets nasal pillows monthly and head gear every 6 months. His last sleep study was done 08/18/2022. Patient thought he mentioned to PCP at his last visit, needing order. Pending order, fax to [facility] at [phone]. Please advise [place] 11-12-2024 Radiology Diagnostic study note [facility] [address], [place] [id number] Thoracic Spine 2 Views MR#: [id number] Acct: [id number] Name: TOSHA SPANN Rep #: [id number] : 1945 M 79 From: And josé luis Connor DO PCP: Dr. Nevin Marquez MD Status: RE G CLI Study:Thoracic Spine 2 Views Date of Exam: 11/12/24 Exam# [id number] Ordering Dr: Ludwig Sweeney MD PROCEDURE: Thoracic spine radiographs, two views REASON FOR EXAM: Evaluate SCS leads. TECHNIQUE: Two views of the thoracic spine were obtained. COMPARISON: None. FINDINGS: AP and lateral thoracic spine radiographs were obtained. The patient is rotatedto the left on the AP view. Sternotomy wires are present. Bones are osteopenic. No focal subluxation of the thoracic spine. Moderate multilevel degenerative disc disease is present. Mild height loss of a few lower thoracic vertebral bodies, age-indeterminate. The grossly intact spinal stimulator leads project over the posterior aspect midthoracic spinal canal. RAD/Thoracic Spine 2 Views IMPRESSION: Osteopenia. Moderate multilevel degenerative disc disease in the thoracic spine. Mild age-indeterminate height loss of a few mid to lower thoracic vertebral bodies. Grossly intact spinal stimulator leads project over the posterior aspect mid thoracic spinal canal. Reading Location: [facility] CC: Dr. Ludwig Sweeney MD; Dr. Nevin Marquez MD ~ Physicist Nuclear: Signed [facility] 11-12-2024 Radiology Diagnostic study note [facility] [address] [place] [address] HIP, UNI W/ Pelvis 2-3 Views MR#: [id number] Acct: [id number] Name: TOSHA SPANN Rep #: [id number] : 1945 M 79 From: And josé luis Connor DO PCP: Dr. Nevin Marquez MD Status: RE G CLI Study:HIP, UNI W/ Pelvis 2-3 Views Date of Ex am: 11/12/24 Exam# [id number] Ordering Dr: Ludwig Sweeney MD PROCEDURE: Pelvis and right hip radiographs, three views REASON FOR EXAM: Groin pain TECHNIQUE: Three views of the pelvis and right hip were obtained. COMPARISON: None. FINDINGS: Three views of the pelvis and right hip were obtained. Bones are osteopenic. Degenerative changes in the lower lumbar spine. An electronic probable spinal stimulator battery pack projects over the mid lefthemipelvis. No displaced pelvic fracture. Mild degenerative changes in the hip joints. Proximal femurs intact. No acute fracture or dislocation of the right hip. RAD/HIP, UNI W/ Pelvis 2-3 Views IMPRESSION: Osteopenia. No acute bony abnormality of the pelvis/right hip. Mild degenerative changes in the hip joints. Reading Location: [facility] CC: Dr. Ludwig Sweeney MD; Dr. Nevin Marquez MD ~ Physicist Nuclear: Signed [facility] 11-05-2024 Evaluation note Diagnosis Onset Date Resolution Chronic constipation chronic Febr ua2024 10:13am Flatulence/wind chronic November 05, 2024 10:13am GERD (gastroesophageal reflux disease) chronic November 05 025 10:13am IBS (irritable bowel syndrome) chronic November 05 10:13am Constipation inactive October 10:13am [facility] Work Phone: [phone]) 537-788102-04-2025 NoteHNO ID: [id number] Author: LINN THOMAS, Service: ? Author Type: Physician Type: Progress Notes Filed: 10/22/2024 09:51 Note Text: [facility] V[facility] [place] DEPARTMENT OF VASCULAR SURGERY OUTPATIENT VISIT DATE October 22, 2024 OUTPATIENT VISIT TYPE ESTABLISHED SERVICE DATE: 10/22/2024 SERVICE TIME: 9:23 AM PRIMARY CARE PHYSICIAN: Nevin Marquez MD HISTORY OF PRESENT ILLNESS: Mr. Spann is a 79 year old male who presents today for a vascular surgery follow-up visit for vascular lab testing. He recently had his spinal stimulator adjusted however continues to have significant pain. He does report lower extremity and hand cramping PAST MEDICAL HISTORY Diagnosis Date Abnormal REM sleep REM dependent ALFONSO Arthritis BPH with obstruction/lower urinary tract symptoms CAD (coronary artery disease) Diabetes (HCC) Diarrhea 05/11/2005 Enthesopathy of hip region 05/11/2005 Esophageal reflux 05/11/2005 Hemorrhage of gastrointestinal tract, unspecified 05/11/2005 History of transfusion Pt thinks maybe w/ his open heart;He possibly had a transfusion IFG (impaired fasting glucose) Intestinal infection due to campylobacter 05/11/2005 Migraine without aura, without mention of intractable migraine without mention of status migrainosus 05/11/2005 Propranolol effective for prevention Motion sickness Nocturnal hypoxemia Diagnosed on PSG Primary hypertension 05/11/2005 PUD (peptic ulcer disease) 1968 conservative tx while in service Pure hypercholesterolemia 05/11/2005 Sciatica 05/11/2005 Sleep apnea APAP uses nightly;Pt repors he's a very sallow breather Thyroid disease PAST SURGICAL HISTORY Procedure Laterality Date APPENDECTOMY CABG (3) VEIN GRAFTS AND ARTERIAL GRAFT(S) 10/25/2021 CHOLECYSTECTOMY COLONOSCOPY FLX DX W/COLLJ SPEC WHEN PFRMD 01/29/2001 Colonoscopy COLONOSCOPY FLX DX W/COLLJ SPEC WHEN PFRMD 03/26/2018 Colonoscopy COLONOSCOPY W/BIOPSY SINGLE/MULTIPLE 05/16/2008 ESOPHAGOGASTRODUODENOSCOPY TRANSORAL DIAGNOSTIC 03/26/2018 EGD ESOPHAGOSCOPY FLEX BALLOON DILAT <30 MM DIAM 04/12/2006 Esophageal dilatation PAST SURGICAL HISTORY OF 1999 hemorrhoidectomy PAST SURGICAL HISTORY OF left footsurgery PAST SURGICAL HISTORY OF 1990 Brad fundoplication PAST SURGICAL HISTORY OF 10/2006 re-do fundoplication Dr Felix PAST SURGICAL HISTORY OF 03/07/2022 Spinal cord stimulator placement RPR 1ST INGUN HRNA AGE 7 YRS/> REDUCIBLE age 17 Hernia repair, inguinal, left SOCIAL HISTORY Social History Tobacco Use Smoking status: Former Current packs/day: 0.00 Average packs/day: 1.5 packs/day for 6.0 years (9.0 ttl pk-yrs) Types: Cigarettes Start date: 09/18/1964 Quit date: 09/18/1970 Years since quittin.1 Passive exposure: Never Smokeless tobacco: Never Vaping Use Vaping status: Never Used Substance Use Topics Alcohol use: Not Currently Comment: rarely Drug use: No MEDICATIONS: mupirocin (BACTROBAN) 2 % ointment Apply 1 application to affected area three times a day. In each nostril propranolol ER (INDERAL LA) 120 mg 24 hr capsule Take 1 capsule by mouth once daily. omeprazole (PRILOSEC) 40 mg capsule Take 1 capsule by mouth two times a day. metFORMIN ER (GLUCOPHAGE XR) 500 mg 24 hr tablet Take 1 tablet by mouth daily with breakfast. traZODone (DESYREL) 50 mg tablet Take 0.5-1 tablets by mouth daily at bedtime. For insomnia and depression losartan (COZAAR) 50 mg tablet take 1 tablet twice daily amLODIPine (NORVASC) 5 mg tablet Take 1 tablet by mouth once daily. fluticasone (FLONASE) 50 mcg/actuation nasal spray Use 2 Sprays in each nostril once daily as needed. betamethasone dipropionate, augmented (DIPROLENE) 0.05 % cream APPLY TO HANDS ONCE DAILY AT NIGHT WHEN FLARED, COVER WITH COTTON GLOVES OVERNIGHT calcium citrate/vitamin D3 (CALCIUM CITRATE + D ORAL) Take 1 tablet by mouth once daily. acetaminophen (TYLENOL) 325 mg cap Take 650 mg by mouth once daily. Ascorbic Acid (VITAMIN C) 1,000 mg tablet Take 1,000 mg by mouth once daily. fluticasone propionate (FLOVENT INHALATION) Inhale as instructed as needed. loratadine (CLARITIN) 10 mg tablet Take 10 mg by mouth once daily. L.acidophilus-L.rhamnosus (PROBIOTIC) 15 billion cell capsule Take 1 capsule by mouth once daily. vitamin B complex (B COMPLEX 1 ORAL) Take 1 tablet by mouth once daily. multivitamin with minerals (DAILY MULTIVITAMIN-MINERALS) tablet Take 1 tablet by mouth once daily. melatonin 5 mg tablet Take 5 mg by mouth at bedtime as needed for insomnia. simethicone (GAS-X ORAL) Take 1 Capful by mouth once daily. dicyclomine (BENTYL) 20 mg tablet Take 1 tablet by mouth once daily. ondansetron (ZOFRAN) 4 mg tablet Take 1 tablet by mouth every 8 hours as needed for nausea/vomiting. Blood-Glucose Meter 1 Device as directed. Test Three times a day. Before breakfast, lunch and before bedtime. Blood Glucose Control, Normal (more content not included)...[facility]02-04-2025 History of Present illness Narrative* Linn Thomas, DO - 10/22/2024 9:20 AM EST Images from the original note were not included. [facility] [place] DEPARTMENT OF VASCULAR SURGERY OUTPATIENT VISIT DATE October 22, 2024 OUTPATIENT VISIT TYPE ESTABLISHED SERVICE DATE: 10/22/2024 SERVICE TIME: 9:23 AM PRIMARY CARE PHYSICIAN: Nevin Marquez MD HISTORY OF PRESENT ILLNESS: Mr. Spann is a 79 year old male who presents today for a vascular surgery follow-up visit for vascular lab testing. He recently had his spinal stimulator adjusted howevercontinues to have significant pain. He does report lower extremity and hand cramping PAST MEDICAL HISTORY Diagnosis Date Abnormal REM sleep REM dependent ALFONSO Arthritis BPH with obstruction/lower urinary tract symptoms CAD (coronary artery disease) Diabetes (HCC) Diarrhea 05/11/2005 Enthesopathy of hip region 05/11/2005 Esophageal reflux 05/11/2005 Hemorrhage of gastrointestinal tract, unspecified 05/11/2005 History of transfusion Pt thinks maybe w/ his open heart;He possibly had a transfusion IFG (impaired fasting glucose) Intestinal infection due to campylobacter 05/11/2005 Migraine without aura, without mention of intractable migraine without mention of status migrainosus 05/11/2005 Propranolol effective for prevention Motion sickness Nocturnal hypoxemia Diagnosed on PSG Primary hypertension 05/11/2005 PUD (peptic ulcer disease) 1968 conservative tx while in service Pure hypercholesterolemia 05/11/2005 Sciatica 05/11/2005 Sleep apnea APAP uses nightly;Pt repors he's a very sallow breather Thyroid disease PAST SURGICAL HISTORY Procedure Laterality Date APPENDECTOMY CABG (3) VEIN GRAFTS & ARTERIAL GRAFT(S) 10/25/2021 CHOLECYSTECTOMY COLONOSCOPY FLX DX W/COLLJ SPEC WHEN PFRMD 01/29/2001 Colonoscopy COLONOSCOPY FLX DX W/COLLJ SPEC WHEN PFRMD 03/26/2018 Colonoscopy COLONOSCOPY W/BIOPSY SINGLE/MULTIPLE 05/16/2008 ESOPHAGOGASTRODUODENOSCOPY TRANSORAL DIAGNOSTIC 03/26/2018 EGD ESOPHAGOSCOPY FLEX BALLOON DILAT <30 MM DIAM 04/12/2006 Esophageal dilatation PAST SURGICAL HISTORY OF 1999 hemorrhoidectomy PAST SURGICAL HISTORY OF left footsurgery PAST SURGICAL HISTORY OF 1990 Brad fundoplication PAST SURGICAL HISTORY OF 10/2006 re-do fundoplication Dr Felix PAST SURGICAL HISTORY OF 03/07/2022 Spinal cord stimulator placement RPR 1ST INGUN HRNA AGE 7 YRS/> REDUCIBLE age 17 Hernia repair, inguinal, left SOCIAL HISTORY Social History Tobacco Use Smoking status: Former Current packs/day: 0.00 Average packs/day: 1.5 packs/day for 6.0 years (9.0 ttl pk-yrs) Types: Cigarettes Start date: 09/18/1964 Quit date: 09/18/1970 Years since quittin.1 Passive exposure: Never Smokeless tobacco: Never Vaping Use Vaping status: Never Used Substance Use Topics Alcohol use: Not Currently Comment: rarely Drug use: No MEDICATIONS: mupirocin (BACTROBAN) 2 % ointment Apply 1 application to affected area three times a day. In each nostril propranolol ER (INDERAL LA) 120 mg 24 hr capsule Take 1 capsule by mouth once daily. omeprazole (PRILOSEC) 40 mg capsule Take 1 capsule by mouth two times a day. metFORMIN ER (GLUCOPHAGE XR) 500 mg 24 hr tablet Take 1 tablet by mouth daily with breakfast. traZODone (DESYREL) 50 mg tablet Take 0.5-1 tablets by mouth daily at bedtime. For insomnia and depression losartan (COZAAR) 50 mg tablet take 1 tablet twice daily amLODIPine (NORVASC) 5 mg tablet Take 1 tablet by mouth once daily. fluticasone (FLONASE) 50 mcg/actuation nasal spray Use 2 Sprays in each nostril once daily as needed. betamethasone dipropionate, augmented (DIPROLENE) 0.05 % cream APPLY TO HANDS ONCE DAILY AT NIGHT WHEN FLARED, COVER WITH COTTON GLOVES OVERNIGHT calcium citrate/vitamin D3 (CALCIUM CITRATE + D ORAL) Take 1 tablet by mouth once daily. acetaminophen (TYLENOL) 325 mg cap Take 650 mg by mouth once daily. Ascorbic Acid (VITAMIN C) 1,000 mg tablet Take 1,000 mg by mouth once daily. fluticasone propionate (FLOVENT INHALATION) Inhale as instructed as needed. loratadine (CLARITIN) 10 mg tablet Take 10 mg by mouth once daily. L.acidophilus-L.rhamnosus (PROBIOTIC) 15 billion cell capsule Take 1 capsule by mouth once daily. vitamin B complex (B COMPLEX 1 ORAL) Take 1 tablet by mouth once daily. multivitamin with minerals (DAILY MULTIVITAMIN-MINERALS) tablet Take 1 tablet by mouth once daily. melatonin 5 mg tablet Take 5 mg by mouth at bedtime as needed for insomnia. simethicone (GAS-X ORAL) Take 1 Capful by mouth once daily. dicyclomine (BENTYL) 20 mg tablet Take 1 tablet by mouth once daily. ondansetron (ZOFRAN) 4 mg tablet Take 1 tablet by mouth every 8 hours as needed for nausea/vomiting. Blood-Glucose Meter 1 Device as directed. Test Three times a day. Before breakfast, lunch and before bedtime. Blood Glucose Control, Normal soln 1 Ampule as directed. blood sugar diagnostic test strip Use with blood glucose test 3 times daily, Insulin Dep? No Lancets lancets Use with blood glucose test 3 times daily. Insulin Dep? No alcohol swabs Use with blood glucose test 3 times daily. Insulin Dep? No docusate sodium (COLACE) 100 mg capsule Take 100 mg by mouth once daily. ipratropium 20 mcg-albuterol 100 mcg (COMBIVENT RESPIMAT) 20-100 mcg/actuation inhaler Inhale 1 Puff as instructed every 6 hours as needed. promethazine (PHENERGAN) 25 mg tablet Take 1 tablet by mouth every 8 hours as needed. FOR NAUSEA albuterol HFA (VENTOLIN HFA) 90 mcg/actuation inhaler Inhale 2 Puffs as instructed every 4 hours asneeded for Wheezing/Shortness of Breath. ipratropium bromide (ATROVENT) 42 mcg (0.06 %) nasal spray Use 2 Sprays in the nose daily at bedtime. (Patient not taking: Reported on 10/07/2024) ibuprofen (ADVIL) 200 mg tablet Take 400 mg by mouth two times a day. ALLERGIES: ALLERGIES Allergen Reactions Flomax [Tamsulosin * Hives Percocet [Oxycodone* GI Upset Pt gets severe Nausea;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 Barium Sulfate Hives, Itching Pt has had barium multiple times in the past with no reaction. Only reaction one time Carafate [Sucralfat* GI Upset worsening of chest pain and IBS symptoms Penicillins unknown -childhood Erythromycin GI Upset only PO is problematic PHYSICAL EXAM: BP 153/87 (BP Site: Right Arm, BP Position: Sitting, BP Cuff Size: Regular Adult) Pulse 66 [id number]% Gen- no distress Ext- no significant edema Diagnostic tests reviewed for today's visit: Most recent labs Most recent imaging PVRs- normal, no drop with exercise Aortic Duplex- 3.4cm (slight increase 3.2 in 2020) Carotid Duplex- <50%stenosis bilaterally IMPRESSION: Mr. Spann is a 79 year old male with small AAA . PLAN and RECOMMENDATIONS: Reviewed ultrasounds with patient Recommend repeat duplex in one year Continue blood pressure and cholesterol control May benefit from update bmp, mag for increased cramping SIGNATURE: Linn Thomas DO PATIENT NAME: Tosha Spann DATE: October 22, 2024 TIME: 9:23 AM [place] Instructions* Patient Instructions* Nevin Marquez MD - 10/07/2024 3:03 PM EST - Hold aspirin and Advil for 20 days before and 10 days after your eye surgery on October 25. - Take hydrocodone 5/325 mg as needed for severe pain; prescription sent to [facility] pharmacy. - Try taking Miralax in the morning and Metamucil at night to help regulate bowel movements. May adjsut doses. - Continue taking prednisone eye drops daily per Dr. Elder. - Continue taking trazodone and melatonin nightly for sleep. - Continue taking propranolol, omeprazole, and metformin as prescribed. - Follow up with Dr. Thomas for vascular issues related to your aneurysm and aortic arch. - Follow up with Dr. Estevez for management of amlodipine prescription before it runs out in December. [place]25 NoteHNO ID: [id number] Author: NEVIN MARQUEZ MD Service: ? Author Type: Physician Type: Progress Notes Filed: 10/07/2024 19:04 Note Text: This note was created using Ecorithmriter. Subjective Tosha Spann is a 79 year old male. HISTORY Tosha Spann is a 79 year old gentleman here for pre-op evaluation as requested by Dr. Sanders. Tosha Spann has surgery scheduled on 10/25/24 for Ectropion OS surgery at [facility] in [place]. Tosha Spann is a 79-year-old male with a history of hearing loss, left eye ectropion, spinal stenosis, and bowel irregularities, presenting for preoperative evaluation for left eye ectropion surgery scheduled on 10/25. Tosha reports a history of hearing loss beginning in his 20s, which has led him to become proficient in lip reading. He is currently preparing for left eye ectropion surgery at [facility] in [place], performed by Dr. Elder. Tosha notes that his left eyelid is drooping, causing dryness and excessive tearing due to incomplete closure, even at night. He has been using prednisolone eye drops daily for the past few months, which has improved the condition, reducing redness and watering. Tosha also reports a recent radiofrequency ablation procedure performed by Dr. Brink to address chronic rhinorrhea. He has been advised to avoid Advil for 10 days before and after the procedure, and for 20 days before the upcoming eye surgery, resulting in over a month without Advil. This has exacerbated his chronic back pain, secondary to spinal stenosis, to the point where he had to take hydrocodone yesterday, which he dislikes. He requests a refill of hydrocodone, noting that he typically uses 6-10 pills per year for severe pain. Additionally, Tosha reports a recent fall on ice while working on his driveway, landing on his elbow and experiencing a sensation of vertebrae cracking. He denies any issues with prior anesthesia but mentions a history of elevated blood pressure during previous surgeries, which has caused concern for anesthesiologists. Tosha also reports bowel irregularities, alternating between constipation and loose stools, leading to fecal incontinence. He has tried various treatments, including Miralax and Citrucel, but has not found a consistent solution. He notes that chocolate seems to help with bowel movements but has led to a 6-pound weight gain. PAST MEDICAL HISTORY Diagnosis Date Abnormal REM sleep REM dependent ALFONSO Arthritis BPH with obstruction/lower urinary tract symptoms CAD (coronary artery disease) Diabetes (HCC) Diarrhea 05/11/2005 Enthesopathy of hip region 05/11/2005 Esophageal reflux 05/11/2005 Hemorrhage of gastrointestinal tract, unspecified 05/11/2005 History of transfusion Pt thinks maybe w/ his open heart;He possibly had a transfusion IFG (impaired fasting glucose) Intestinal infection due to campylobacter 05/11/2005 Migraine without aura, without mention of intractable migraine without mention of status migrainosus 05/11/2005 Propranolol effective for prevention Motion sickness Nocturnal hypoxemia Diagnosed on PSG Primary hypertension 05/11/2005 PUD (peptic ulcer disease) 1968 conservative tx while in service Pure hypercholesterolemia 05/11/2005 Sciatica 05/11/2005 Sleep apnea APAP uses nightly;Pt repors he's a very sallow breather Thyroid disease PAST SURGICAL HISTORY Procedure Laterality Date APPENDECTOMY CABG (3) VEIN GRAFTS AND ARTERIAL GRAFT(S) 10/25/2021 CHOLECYSTECTOMY COLONOSCOPY FLX DX W/COLLJ SPEC WHEN PFRMD 01/29/2001 Colonoscopy COLONOSCOPY FLX DX W/COLLJ SPEC WHEN PFRMD 03/26/2018 Colonoscopy COLONOSCOPY W/BIOPSY SINGLE/MULTIPLE 05/16/2008 ESOPHAGOGASTRODUODENOSCOPY TRANSORAL DIAGNOSTIC 03/26/2018 EGD ESOPHAGOSCOPY FLEX BALLOON DILAT <30 MM DIAM 04/12/2006 Esophageal dilatation PAST SURGICAL HISTORY OF 1999 hemorrhoidectomy PAST SURGICAL HISTORY OF left footsurgery PAST SURGICAL HISTORY OF 1990 Brad fundoplication PAST SURGICAL HISTORY OF 10/2006 re-do fundoplication Dr Felix PAST SURGICAL HISTORY OF 03/07/2022 Spinal cord stimulator placement RPR 1ST INGUN HRNA AGE 7 YRS/> REDUCIBLE age 17 Hernia repair, inguinal, left ALLERGIES Allergen Reactions Flomax [Tamsulosin * Hives Percocet [Oxycodone* GI Upset Pt gets severe Nausea;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 Barium Sulfate Hives, Itching Pt has had barium multiple times in the past with no reaction. Only reaction one time Carafate [Sucralfat* GI Upset worsening of chest pain and IBS symptoms Penicillins unknown -childhood Erythromycin GI Upset only PO is problematic Current Outpatient Medications Medication Sig mupirocin (BACTROBAN) 2 % ointment Apply 1 application to affected area three times a day. In each nostril traZODone (DESYREL) 50 mg tablet Take 0.5-1 tablets by mouth daily at bedtime. For (more content not included)...[facility]01-20-2025 History of Present illness Narrative* Nevin Marquez MD - 10/07/2024 2:32 PM EST This note was created using SourceClearter. Subjective Tosha Spann is a 79 year old male. HISTORY Tosha Spann is a 79 year old gentleman here for pre-op evaluation as requested by Dr. Sanders.Tosha Spann has surgery scheduled on 10/25/24 for Ectropion OS surgery at [facility] in [place]. Tosha Spann is a 79-year-old male with a history of hearing loss, left eye ectropion, spinal stenosis, and bowel irregularities, presenting for preoperative evaluation for left eye ectropion surgery scheduled on 10/25. Tosha reports a history of hearing loss beginning in his 20s, which has led him to become proficient in lip reading. He is currently preparing for left eye ectropion surgery at [facility] in [place], performed by Dr. Elder. Tosha notes that his left eyelid is drooping, causing dryness and excessive tearing due to incomplete closure, even at night. He has been using prednisolone eye dropsdaily for the past few months, which has improved the condition, reducing redness and watering. Tosha also reports a recent radiofrequency ablation procedure performed by Dr. Brink to address chronic rhinorrhea. He has been advised to avoid Advil for 10 days before and after the procedure, and for 20 days before the upcoming eye surgery, resulting in over a month without Advil. This has exacerbated his chronic back pain, secondary to spinal stenosis, to the point where he had to take hydrocodone yesterday, which he dislikes. He requests a refill of hydrocodone, noting that he typicallyuses 6-10 pills per year for severe pain. Additionally, Tosha reports a recent fall on ice while working on his driveway, landing on his elbow and experiencing a sensation of vertebrae cracking. He denies any issues with prior anesthesia but mentions a history of elevated blood pressure during previous surgeries, which has caused concern for anesthesiologists. Tosha also reports bowel irregularities, alternating between constipation and loose stools, leading to fecal incontinence. He has tried various treatments, including Miralax and Citrucel, but has not found a consistent solution. He notes that chocolate seems to help with bowel movements but has led to a 6-pound weight gain. PAST MEDICAL HISTORY Diagnosis Date Abnormal REM sleep REM dependent ALFONSO Arthritis BPH with obstruction/lower urinary tract symptoms CAD (coronary artery disease) Diabetes (HCC) Diarrhea 05/11/2005 Enthesopathy of hip region 05/11/2005 Esophageal reflux 05/11/2005 Hemorrhage of gastrointestinal tract, unspecified 05/11/2005 History of transfusion Pt thinks maybe w/ his open heart;He possibly had a transfusion IFG (impaired fasting glucose) Intestinal infection due to campylobacter 05/11/2005 Migraine without aura, without mention of intractable migraine without mention of status migrainosus 05/11/2005 Propranolol effective for prevention Motion sickness Nocturnal hypoxemia Diagnosed on PSG Primary hypertension 05/11/2005 PUD (peptic ulcer disease) 1968 conservative tx while in service Pure hypercholesterolemia 05/11/2005 Sciatica 05/11/2005 Sleep apnea APAP uses nightly;Pt repors he's a very sallow breather Thyroid disease PAST SURGICAL HISTORY Procedure Laterality Date APPENDECTOMY CABG (3) VEIN GRAFTS & ARTERIAL GRAFT(S) 10/25/2021 CHOLECYSTECTOMY COLONOSCOPY FLX DX W/COLLJ SPEC WHEN PFRMD 01/29/2001 Colonoscopy COLONOSCOPY FLX DX W/COLLJ SPEC WHEN PFRMD 03/26/2018 Colonoscopy COLONOSCOPY W/BIOPSY SINGLE/MULTIPLE 05/16/2008 ESOPHAGOGASTRODUODENOSCOPY TRANSORAL DIAGNOSTIC 03/26/2018 EGD ESOPHAGOSCOPY FLEX BALLOON DILAT <30 MM DIAM 04/12/2006 Esophageal dilatation PAST SURGICAL HISTORY OF 1999 hemorrhoidectomy PAST SURGICAL HISTORY OF left footsurgery PAST SURGICAL HISTORY OF 1990 Brad fundoplication PAST SURGICAL HISTORY OF 10/2006 re-do fundoplication Dr Felix PAST SURGICAL HISTORY OF 03/07/2022 Spinal cord stimulator placement RPR 1ST INGUN HRNA AGE 7 YRS/> REDUCIBLE age 17 Hernia repair, inguinal, left ALLERGIES Allergen Reactions Flomax [Tamsulosin * Hives Percocet [Oxycodone* GI Upset Pt gets severe Nausea;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 Barium Sulfate Hives, Itching Pt has had barium multiple times in the past with no reaction. Only reaction one time Carafate [Sucralfat* GI Upset worsening of chest pain and IBS symptoms Penicillins unknown -childhood Erythromycin GI Upset only PO is problematic Current Outpatient Medications Medication Sig mupirocin (BACTROBAN) 2 % ointment Apply 1 application to affected area three times a day. In each nostril traZODone (DESYREL) 50 mg tablet Take 0.5-1 tablets by mouth daily at bedtime. For insomnia and depression losartan (COZAAR) 50 mg tablet take 1 tablet twice daily amLODIPine (NORVASC) 5 mg tablet Take 1 tablet by mouth once daily. metFORMIN ER (GLUCOPHAGE XR) 500 mg 24 hr tablet Take 1 tablet by mouth daily with breakfast. propranolol ER (INDERAL LA) 120 mg 24 hr capsule Take 1 capsule by mouth once daily. omeprazole (PRILOSEC) 40 mg capsule Take 1 capsule by mouth two times a day. fluticasone (FLONASE) 50 mcg/actuation nasal spray Use 2 Sprays in each nostril once daily as needed. betamethasone dipropionate, augmented (DIPROLENE) 0.05 % cream APPLY TO HANDS ONCE DAILY AT NIGHT WHEN FLARED, COVER WITH COTTON GLOVES OVERNIGHT calcium citrate/vitamin D3 (CALCIUM CITRATE + D ORAL) Take 1 tablet by mouth once daily. ibuprofen (ADVIL) 200 mg tablet Take 400 mg by mouth two times a day. acetaminophen (TYLENOL) 325 mg cap Take 650 mg by mouth once daily. Ascorbic Acid (VITAMIN C) 1,000 mg tablet Take 1,000 mg by mouth once daily. fluticasone propionate (FLOVENT INHALATION) Inhale as instructed as needed. loratadine (CLARITIN) 10 mg tablet Take 10 mg by mouth once daily. L.acidophilus-L.rhamnosus (PROBIOTIC) 15 billion cell capsule Take 1 capsule by mouth once daily. vitamin B complex (B COMPLEX 1 ORAL) Take 1 tablet by mouth once daily. multivitamin with minerals (DAILY MULTIVITAMIN-MINERALS) tablet Take 1 tablet by mouth once daily. melatonin 5 mg tablet Take 5 mg by mouth at bedtime as needed for insomnia. simethicone (GAS-X ORAL) Take 1 Capful by mouth once daily. dicyclomine (BENTYL) 20 mg tablet Take 1 tablet by mouth once daily. ondansetron (ZOFRAN) 4 mg tablet Take 1 tablet by mouth every 8 hours as needed for nausea/vomiting. Blood-Glucose Meter 1 Device as directed. Test Three times a day. Before breakfast, lunch and before bedtime. Blood Glucose Control, Normal soln 1 Ampule as directed. blood sugar diagnostic test strip Use with blood glucose test 3 times daily, Insulin Dep? No Lancets lancets Use with blood glucose test 3 times daily. Insulin Dep? No alcohol swabs Use with blood glucose test 3 times daily. Insulin Dep? No docusate sodium (COLACE) 100 mg capsule Take 100 mg by mouth once daily. ipratropium 20 mcg-albuterol 100 mcg (COMBIVENT RESPIMAT) 20-100 mcg/actuation inhaler Inhale 1 Puff as instructed every 6 hours as needed. promethazine (PHENERGAN) 25 mg tablet Take 1 tablet by mouth every 8 hours as needed. FOR NAUSEA albuterol HFA (VENTOLIN HFA) 90 mcg/actuation inhaler Inhale 2 Puffs as instructed every 4 hours asneeded for Wheezing/Shortness of Breath. ipratropium bromide (ATROVENT) 42 mcg (0.06 %) nasal spray Use 2 Sprays in the nose daily at bedtime. (Patient not taking: Reported on 10/07/2024) No current facility-administered medications for this visit. FAMILY HISTORY Problem Relation Age of Onset Diabetes Mother Heart Father [place] Diabetes Brother Stroke Maternal Grandfather Cancer Paternal Grandfather Social History Tobacco Use Smoking status: Former Current packs/day: 0.00 Average packs/day: 1.5 packs/day for 6.0 years (9.0 ttl pk-yrs) Types: Cigarettes Start date: 09/18/1964 Quit date: 09/18/1970 Years since quittin.0 Passive exposure: Never Smokeless tobacco: Never Vaping Use Vaping status: Never Used Substance Use Topics Alcohol use: Not Currently Comment: rarely Drug use: No Review of Systems Constitutional: Negative. HENT: Negative. Eyes: See HPI Respiratory: Stable Cardiovascular: Dr. Estevez gave cardiac clearance Gastrointestinal: See HPI Endocrine: Negative. Genitourinary: No acute problems Musculoskeletal: Positive for back pain (Chronic). Neurological: No acute problems Hematological: Negative. Objective BP 122/78 Pulse 68 Temp 36.9 C (98.5 F) Resp 16 Ht 174.2 cm (5' 8.6) Wt 79.5 kg (175 lb 4.3 oz) SpO2 97% BMI 26.18 kg/m Physical Exam Vitals reviewed. Constitutional: Appearance: Normal appearance. HENT: Head: Normocephalic. Right Ear: Tympanic membrane, ear canal and external ear normal. Left Ear: Tympanic membrane, ear canal and external ear normal. Mouth/Throat: Mouth: Mucous membranes are moist. Pharynx: Oropharynx is clear. Eyes: Extraocular Movements: Extraocular movements intact. Conjunctiva/sclera: Conjunctivae normal. Pupils: Pupils are equal, round, and reactive to light. Comments: Left lid ectropion noted Neck: Thyroid: No thyromegaly. Vascular: No carotid bruit. Cardiovascular: Rate and Rhythm: Normal rate and regular rhythm. Pulses: Normal pulses. Heart sounds: Normal heart sounds. Pulmonary: Effort: Pulmonary effort is normal. Breath sounds: Normal breath sounds. Abdominal: General: Abdomen is flat. There is no distension. Palpations: Abdomen is soft. There is no mass. Musculoskeletal: Cervical back: Normal range of motion. Right lower leg: No edema. Left lower leg: No edema. Skin: General: Skin is warm and dry. Neurological: General: No focal deficit present. Mental Status: He is alert and oriented to person, place, and time. Psychiatric: Attention and Perception: Attention and perception normal. Mood and Affect: Mood and affect normal. Speech: Speech normal. Behavior: Behavior normal. Thought Content: Thought content normal. Cognition and Memory: Cognition and memory normal. Judgment: Judgment normal. Assessment and Plan # Preop examination (Z01.818) - Preoperative evaluation for ectropion surgery on left lower eyelid scheduled for 10/25 at [facility] in [place] by Dr. Elder. - No contraindications to surgery found on examination. - Patient advised to hold aspirin and Advil as per surgical instructions. - Sent results of pre-op evaluation and H&P to Dr. Elder via fax. # Spinal stenosis of lumbar region, unspecified whether neurogenic claudication present (M48.061) # DDD (degenerative disc disease), cervical (M50.30) # Polyarthralgia (M25.50) - Experiencing significant back pain due to inability to take NSAIDs preoperatively. - Prescribed hydrocodone 5/325 mg, 28 tablets, to be taken q6h prn severe pain; sent prescription to [facility] pharmacy. # Alternating constipation and diarrhea (R19.8) - Advised trial of Miralax in the morning and Metamucil at night to balance stool consistency. - Discussed potential need to adjust dosages based on response. # Ectropion of left lower eyelid, unspecified ectropion type (H02.105) - Scheduled for corrective surgery on 10/25. - Currently using prednisone eye drops daily to manage inflammation. - Advised to continue current treatment until surgery. Stable for planned surgical procedure. May proceed with planned surgical procedure. Nevin Marquez MD [place] encounter[place]12-12-2024 Telephone encounter Note * Telephone Encounter - Camrny Pimentel - 08/29/2024 7:59 AM EST Cardiac Clearance received from Dr Sanders for Ectropin on 10/25/[address] Estevez on 08/12/24 Form scanned in and placed in Dr Rubi Box for review Camryn Pimentel [place]12-12-2024 Miscellaneous Notes* Telephone Encounter - Camryn Pimentel - 08/29/2024 7:59 AM EST Cardiac Clearance received from Dr Sanders for Ectropin on 10/25/[address] Estevez on 08/12/24 Form scanned in and placed in Dr Rubi Box for review Camryn Pimentel [place] in this encounterCent[place]12-10-2024 Telephone encounter Note * Telephone Encounter - Sivan Miller - 08/27/2024 1:34 PM EST 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 I was going to put loaners in the bin, but you came out to help him and took the loaners. Thank you!!!! 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 I was going to put loaners in the bin, but you came out to help him and took the loaners. Thank you!!!! documented in this encounterCenterville11-26-2024 NoteHNO ID: [id number] Author: LINN THOMAS, DO Service: ? Author Type: Physician Type: Progress Notes Filed: 08/13/2024 12:52 Note Text: [facility] [place] DEPARTMENT OF VASCULAR SURGERY OUTPATIENT VISIT DATE August 13, 2024 OUTPATIENT VISIT TYPE CONSULTATION SERVICE DATE: 08/13/2024 SERVICE TIME: 10:06 AM PRIMARY CARE PHYSICIAN: Nevin Marquez MD REFERRING PROVIDER: Linn Thomas [address] [facility] [id number] Consult requested for an opinion regarding the evaluation and treatment of the above. My final impression and recommendations will be communicated back to the requesting physician by way of the shared medical record or letter via US mail. CHIEF COMPLAINT: Re-establish care, known AAA HISTORY OF PRESENT ILLNESS: Vascular consultation at the request of Dr. Linn Thomas. A copy of this consultation note will be provided to the requesting physician by way of shared Medical record or letter to requesting physician via US mail. Mr. Spann is a 79 year old male who is seen today for bilateral lower extremity cramping. He has known back disease and has spinal stimulator. He has tried numerous statins which have caused leg cramps. States his legs will go numb when sitting for longer periods of time. He has a known AAA- last duplex was in 2020- 3.2cm. He also admits to dizziness and issues with balance and difficulty walking PAST MEDICAL HISTORY Diagnosis Date Abnormal REM sleep REM dependent ALFONSO Arthritis BPH with obstruction/lower urinary tract symptoms CAD (coronary artery disease) Diabetes (HCC) Diarrhea 05/11/2005 Enthesopathy of hip region 05/11/2005 Esophageal reflux 05/11/2005 Hemorrhage of gastrointestinal tract, unspecified 05/11/2005 History of transfusion Pt thinks maybe w/ his open heart;He possibly had a transfusion IFG (impaired fasting glucose) Intestinal infection due to campylobacter 05/11/2005 Migraine without aura, without mention of intractable migraine without mention of status migrainosus 05/11/2005 Propranolol effective for prevention Motion sickness Nocturnal hypoxemia Diagnosed on PSG Primary hypertension 05/11/2005 PUD (peptic ulcer disease) 1968 conservative tx while in service Pure hypercholesterolemia 05/11/2005 Sciatica 05/11/2005 Sleep apnea APAP uses nightly;Pt repors he's a very sallow breather Thyroid disease PAST SURGICAL HISTORY Procedure Laterality Date APPENDECTOMY CABG (3) VEIN GRAFTS AND ARTERIAL GRAFT(S) 10/25/2021 CHOLECYSTECTOMY COLONOSCOPY FLX DX W/COLLJ SPEC WHEN PFRMD 01/29/2001 Colonoscopy COLONOSCOPY FLX DX W/COLLJ SPEC WHEN PFRMD 03/26/2018 Colonoscopy COLONOSCOPY W/BIOPSY SINGLE/MULTIPLE 05/16/2008 ESOPHAGOGASTRODUODENOSCOPY TRANSORAL DIAGNOSTIC 03/26/2018 EGD ESOPHAGOSCOPY FLEX BALLOON DILAT <30 MM DIAM 04/12/2006 Esophageal dilatation PAST SURGICAL HISTORY OF 1999 hemorrhoidectomy PAST SURGICAL HISTORY OF left footsurgery PAST SURGICAL HISTORY OF 1990 Brad fundoplication PAST SURGICAL HISTORY OF 10/2006 re-do fundoplication Dr Felix PAST SURGICAL HISTORY OF 03/07/2022 Spinal cord stimulator placement RPR 1ST INGUN HRNA AGE 7 YRS/> REDUCIBLE age 17 Hernia repair, inguinal, left SOCIAL HISTORY: Social History Tobacco Use Smoking status: Former Current packs/day: 0.00 Average packs/day: 1.5 packs/day for 6.0 years (9.0 ttl pk-yrs) Types: Cigarettes Start date: 09/18/1964 Quit date: 09/18/1970 Years since quittin.9 Passive exposure: Never Smokeless tobacco: Never Vaping Use Vaping status: Never Used Substance Use Topics Alcohol use: Not Currently Comment: rarely Drug use: No FAMILY HISTORY Problem Relation Age of Onset Diabetes Mother Heart Father [place] Diabetes Brother Stroke Maternal Grandfather Cancer Paternal Grandfather MEDICATIONS: traZODone (DESYREL) 50 mg tablet Take 0.5-1 tablets by mouth daily at bedtime. For insomnia and depression losartan (COZAAR) 50 mg tablet take 1 tablet twice daily amLODIPine (NORVASC) 5 mg tablet Take 1 tablet by mouth once daily. metFORMIN ER (GLUCOPHAGE XR) 500 mg 24 hr tablet Take 1 tablet by mouth daily with breakfast. propranolol ER (INDERAL LA) 120 mg 24 hr capsule Take 1 capsule by mouth once daily. omeprazole (PRILOSEC) 40 mg capsule Take 1 capsule by mouth two times a day. fluticasone (FLONASE) 50 mcg/actuation nasal spray Use 2 Sprays in each nostril once daily as needed. ipratropium bromide (ATROVENT) 42 mcg (0.06 %) nasal spray Use 2 Sprays in the nose daily at bedtime. betamethasone dipropionate, augmented (DIPROLENE) 0.05 % cream APPLY TO HANDS ONCE DAILY AT NIGHT WHEN FLARED, COVER WITH COTTON GLOVES OVERNIGHT calcium citrate/vitamin D3 (CALCIUM CITRATE + D ORAL) Take 1 tablet by mouth once daily. ibuprofen (ADVIL) 200 mg tablet Take 400 mg by mouth two times a day. acetaminophen (TYLENOL) 325 mg cap Take 650 mg (more content not included)... [facility]11-26-2024 History of Present illness Narrative* Linn Thomas DO - 08/13/2024 10:06 AM EST Images from the original note were not included. [facility] [place] DEPARTMENT OF VASCULAR SURGERY OUTPATIENT VISIT DATE August 13, 2024 OUTPATIENT VISIT TYPE CONSULTATION SERVICE DATE: 08/13/2024 SERVICE TIME: 10:06 AM PRIMARY CARE PHYSICIAN: Nevin Marquez MD REFERRING PROVIDER: Linn Thomas [address] [facility] [id number] Consult requested for an opinion regarding the evaluation and treatment of the above. My final impression and recommendations will be communicated back to the requesting physician by way of the shared medical record or letter via US mail. CHIEF COMPLAINT: Re-establish care, known AAA HISTORY OF PRESENT ILLNESS: Vascular consultation at the request of Dr. Linn Thomas. A copy of this consultation note willbe provided to the requesting physician by way of shared Medical record or letter to requesting physician via US mail. Mr. Spann is a 79 year old male who is seen today for bilateral lower extremity cramping. He has known back disease and has spinal stimulator. He has tried numerous statins which have caused leg cramps. States his legs will go numb when sitting for longer periods of time. He has a known AAA- last duplex was in 2020- 3.2cm. He also admits to dizziness and issues with balance and difficulty walking PAST MEDICAL HISTORY Diagnosis Date Abnormal REM sleep REM dependent ALFONSO Arthritis BPH with obstruction/lower urinary tract symptoms CAD (coronary artery disease) Diabetes (HCC) Diarrhea 05/11/2005 Enthesopathy of hip region 05/11/2005 Esophageal reflux 05/11/2005 Hemorrhage of gastrointestinal tract, unspecified 05/11/2005 History of transfusion Pt thinks maybe w/ his open heart;He possibly had a transfusion IFG (impaired fasting glucose) Intestinal infection due to campylobacter 05/11/2005 Migraine without aura, without mention of intractable migraine without mention of status migrainosus 05/11/2005 Propranolol effective for prevention Motion sickness Nocturnal hypoxemia Diagnosed on PSG Primary hypertension 05/11/2005 PUD (peptic ulcer disease) 1968 conservative tx while in service Pure hypercholesterolemia 05/11/2005 Sciatica 05/11/2005 Sleep apnea APAP uses nightly;Pt repors he's a very sallow breather Thyroid disease PAST SURGICAL HISTORY Procedure Laterality Date APPENDECTOMY CABG (3) VEIN GRAFTS & ARTERIAL GRAFT(S) 10/25/2021 CHOLECYSTECTOMY COLONOSCOPY FLX DX W/COLLJ SPEC WHEN PFRMD 01/29/2001 Colonoscopy COLONOSCOPY FLX DX W/COLLJ SPEC WHEN PFRMD 03/26/2018 Colonoscopy COLONOSCOPY W/BIOPSY SINGLE/MULTIPLE 05/16/2008 ESOPHAGOGASTRODUODENOSCOPY TRANSORAL DIAGNOSTIC 03/26/2018 EGD ESOPHAGOSCOPY FLEX BALLOON DILAT <30 MM DIAM 04/12/2006 Esophageal dilatation PAST SURGICAL HISTORY OF 1999 hemorrhoidectomy PAST SURGICAL HISTORY OF left footsurgery PAST SURGICAL HISTORY OF 1990 Brad fundoplication PAST SURGICAL HISTORY OF 10/2006 re-do fundoplication Dr Felix PAST SURGICAL HISTORY OF 03/07/2022 Spinal cord stimulator placement RPR 1ST INGUN HRNA AGE 7 YRS/> REDUCIBLE age 17 Hernia repair, inguinal, left SOCIAL HISTORY: Social History Tobacco Use Smoking status: Former Current packs/day: 0.00 Average packs/day: 1.5 packs/day for 6.0 years (9.0 ttl pk-yrs) Types: Cigarettes Start date: 09/18/1964 Quit date: 09/18/1970 Years since quittin.9 Passive exposure: Never Smokeless tobacco: Never Vaping Use Vaping status: Never Used Substance Use Topics Alcohol use: Not Currently Comment: rarely Drug use: No FAMILY HISTORY Problem Relation Age of Onset Diabetes Mother Heart Father [place] Diabetes Brother Stroke Maternal Grandfather Cancer Paternal Grandfather MEDICATIONS: traZODone (DESYREL) 50 mg tablet Take 0.5-1 tablets by mouth daily at bedtime. For insomnia and depression losartan (COZAAR) 50 mg tablet take 1 tablet twice daily amLODIPine (NORVASC) 5 mg tablet Take 1 tablet by mouth once daily. metFORMIN ER (GLUCOPHAGE XR) 500 mg 24 hr tablet Take 1 tablet by mouth daily with breakfast. propranolol ER (INDERAL LA) 120 mg 24 hr capsule Take 1 capsule by mouth once daily. omeprazole (PRILOSEC) 40 mg capsule Take 1 capsule by mouth two times a day. fluticasone (FLONASE) 50 mcg/actuation nasal spray Use 2 Sprays in each nostril once daily as needed. ipratropium bromide (ATROVENT) 42 mcg (0.06 %) nasal spray Use 2 Sprays in the nose daily at bedtime. betamethasone dipropionate, augmented (DIPROLENE) 0.05 % cream APPLY TO HANDS ONCE DAILY AT NIGHT WHEN FLARED, COVER WITH COTTON GLOVES OVERNIGHT calcium citrate/vitamin D3 (CALCIUM CITRATE + D ORAL) Take 1 tablet by mouth once daily. ibuprofen (ADVIL) 200 mg tablet Take 400 mg by mouth two times a day. acetaminophen (TYLENOL) 325 mg cap Take 650 mg by mouth once daily. Ascorbic Acid (VITAMIN C) 1,000 mg tablet Take 1,000 mg by mouth once daily. fluticasone propionate (FLOVENT INHALATION) Inhale as instructed as needed. loratadine (CLARITIN) 10 mg tablet Take 10 mg by mouth once daily. L.acidophilus-L.rhamnosus (PROBIOTIC) 15 billion cell capsule Take 1 capsule by mouth once daily. vitamin B complex (B COMPLEX 1 ORAL) Take 1 tablet by mouth once daily. multivitamin with minerals (DAILY MULTIVITAMIN-MINERALS) tablet Take 1 tablet by mouth once daily. melatonin 5 mg tablet Take 5 mg by mouth at bedtime as needed for insomnia. simethicone (GAS-X ORAL) Take 1 Capful by mouth once daily. dicyclomine (BENTYL) 20 mg tablet Take 1 tablet by mouth once daily. ondansetron (ZOFRAN) 4 mg tablet Take 1 tablet by mouth every 8 hours as needed for nausea/vomiting. Blood-Glucose Meter 1 Device as directed. Test Three times a day. Before breakfast, lunch and before bedtime. Blood Glucose Control, Normal soln 1 Ampule as directed. blood sugar diagnostic test strip Use with blood glucose test 3 times daily, Insulin Dep? No Lancets lancets Use with blood glucose test 3 times daily. Insulin Dep? No alcohol swabs Use with blood glucose test 3 times daily. Insulin Dep? No docusate sodium (COLACE) 100 mg capsule Take 100 mg by mouth once daily. ipratropium 20 mcg-albuterol 100 mcg (COMBIVENT RESPIMAT) 20-100 mcg/actuation inhaler Inhale 1 Puff as instructed every 6 hours as needed. promethazine (PHENERGAN) 25 mg tablet Take 1 tablet by mouth every 8 hours as needed. FOR NAUSEA albuterol HFA (VENTOLIN HFA) 90 mcg/actuation inhaler Inhale 2 Puffs as instructed every 4 hours asneeded for Wheezing/Shortness of Breath. ALLERGIES: ALLERGIES Allergen Reactions Flomax [Tamsulosin * Hives Percocet [Oxycodone* GI Upset Pt gets severe Nausea;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 Barium Sulfate Hives, Itching Pt has had barium multiple times in the past with no reaction. Only reaction one time Carafate [Sucralfat* GI Upset worsening of chest pain and IBS symptoms Penicillins unknown -childhood Erythromycin GI Upset only PO is problematic REVIEW of SYSTEM: Constitutional: No weight loss, malaise or fevers. HEENT: Negative for frequent or significant headaches, No changes in hearing or vision, no nose bleeds or other nasal problems Respiratory: Negative for cough, wheezing, or shortness of breath Cardiovascular: Negative for chest pain, leg swelling or palpitations Gatrointestinal: Negative for abdominal discomfort, blood in stools or black stools or change in bowel habits Genitourinary: No history of dysuria, frequency, or incontinence Musculoskeletal: Positive for back pain, joint pain, and muscle pain Endocrine: Positive for cold intolerance Hematology/Lymphatic: Positive for bruises easily Neurologic: No history or headaches, syncope, paralysis, seizures or tremors Integumentary: Negative for lesions, rash, and itching. PHYSICAL EXAM: VITALS: There were no vitals taken for this visit. General: Alert and oriented Integumentary: Normal color, no rash, no lesions. HEENT: EOM, pupils equal, round and reactive. Cardiovascular: Pulse regular. Lungs: No chest deformities or chest wall tenderness. Abdomen: Not examined Extremities: No deformity, no edema or tenderness, no joint swelling or clubbing. Neurological: Normal cognition and motor skills. Vascular: Posterior Tibial Right: Normal - Left: Normal Dorsalis Pedal Right: Normal - Left: Normal Diagnostic tests reviewed for today's visit: Most recent labs Most recent imaging IMPRESSION: Mr. Spann is a 79 year old male with AAA and claudication . PLAN and RECOMMENDATIONS: Recommend updated vascular testing Continue current medications, walking/exercise as tolerated Discussed symptoms are most likely multifactorial in nature and may be related to spine disease Follow up after testing. SIGNATURE: Linn Thomas DO PATIENT NAME: Tosha Spann DATE: August 13, 2024 TIME: 10:06 AM documented in this [place]11-25-2024 NoteHNO ID: [id number] Author: EMILIANA ESTEVEZ MD Service: ? Author Type: Physician Type: Progress Notes Filed: 08/12/2024 11:41 Note Text: Emiliana Estevez MD Interventional Cardiology [address] [place] [address] [phone] Chief Complaint Patient presents with: Established Patient Follow-Up: 6 mo follow up HISTORY OF PRESENT ILLNESS: Mr. Spann is a 79 year old male seen in my office today for assessment management prior history of severe three-vessel coronary artery disease and left main underwent bypass surgery JEFF to the LAD vein graft to the circumflex and vein graft to the PDA doing well from the cardiac 1 to be asymptomatic denies chest pain or shortness of breath Major complication claudications and muscle ache possible peripheral vascular disease versus statin induced myalgia Cardiac Risk Factors age (male over 45, female over 55), hyperlipidemia, history of smoking, hypertension, family history of CAD PAST MEDICAL HISTORY Diagnosis Date Abnormal REM sleep REM dependent ALFONSO Arthritis BPH with obstruction/lower urinary tract symptoms CAD (coronary artery disease) Diabetes (HCC) Diarrhea 05/11/2005 Enthesopathy of hip region 05/11/2005 Esophageal reflux 05/11/2005 Hemorrhage of gastrointestinal tract, unspecified 05/11/2005 History of transfusion Pt thinks maybe w/ his open heart;He possibly had a transfusion IFG (impaired fasting glucose) Intestinal infection due to campylobacter 05/11/2005 Migraine without aura, without mention of intractable migraine without mention of status migrainosus 05/11/2005 Propranolol effective for prevention Motion sickness Nocturnal hypoxemia Diagnosed on PSG Primary hypertension 05/11/2005 PUD (peptic ulcer disease) 1968 conservative tx while in service Pure hypercholesterolemia 05/11/2005 Sciatica 05/11/2005 Sleep apnea APAP uses nightly;Pt repors he's a very sallow breather Thyroid disease PAST SURGICAL HISTORY Procedure Laterality Date APPENDECTOMY CABG (3) VEIN GRAFTS AND ARTERIAL GRAFT(S) 10/25/2021 CHOLECYSTECTOMY COLONOSCOPY FLX DX W/COLLJ SPEC WHEN PFRMD 01/29/2001 Colonoscopy COLONOSCOPY FLX DX W/COLLJ SPEC WHEN PFRMD 03/26/2018 Colonoscopy COLONOSCOPY W/BIOPSY SINGLE/MULTIPLE 05/16/2008 ESOPHAGOGASTRODUODENOSCOPY TRANSORAL DIAGNOSTIC 03/26/2018 EGD ESOPHAGOSCOPY FLEX BALLOON DILAT <30 MM DIAM 04/12/2006 Esophageal dilatation PAST SURGICAL HISTORY OF 1999 hemorrhoidectomy PAST SURGICAL HISTORY OF left footsurgery PAST SURGICAL HISTORY OF 1990 Brad fundoplication PAST SURGICAL HISTORY OF 10/2006 re-do fundoplication Dr Felix PAST SURGICAL HISTORY OF 03/07/2022 Spinal cord stimulator placement RPR 1ST INGUN HRNA AGE 7 YRS/> REDUCIBLE age 17 Hernia repair, inguinal, left FAMILY HISTORY Problem Relation Age of Onset Diabetes Mother Heart Father [place] Diabetes Brother Stroke Maternal Grandfather Cancer Paternal Grandfather Social History Tobacco Use Smoking status: Former Current packs/day: 0.00 Average packs/day: 1.5 packs/day for 6.0 years (9.0 ttl pk-yrs) Types: Cigarettes Start date: 09/18/1964 Quit date: 09/18/1970 Years since quittin.9 Passive exposure: Never Smokeless tobacco: Never Vaping Use Vaping status: Never Used Substance Use Topics Alcohol use: Not Currently Comment: rarely Drug use: No ALLERGIES Allergen Reactions Flomax [Tamsulosin * Hives Percocet [Oxycodone* GI Upset Pt gets severe Nausea;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 Barium Sulfate Hives, Itching Pt has had barium multiple times in the past with no reaction. Only reaction one time Carafate [Sucralfat* GI Upset worsening of chest pain and IBS symptoms Penicillins unknown -childhood Erythromycin GI Upset only PO is problematic Medications: Current Outpatient Medications Medication Sig Dispense Refill traZODone (DESYREL) 50 mg tablet Take 0.5-1 tablets by mouth daily at bedtime. For insomnia and depression 90 tablet 3 losartan (COZAAR) 50 mg tablet take 1 tablet twice daily 180 tablet 3 amLODIPine (NORVASC) 5 mg tablet Take 1 tablet by mouth once daily. 90 tablet 3 metFORMIN ER (GLUCOPHAGE XR) 500 mg 24 hr tablet Take 1 tablet by mouth daily with breakfast. 90 tablet 3 propranolol ER (INDERAL LA) 120 mg 24 hr capsule Take 1 capsule by mouth once daily. 90 capsule 3 omeprazole (PRILOSEC) 40 mg capsule Take 1 capsule by mouth two times a day. 180 capsule 3 fluticasone (FLONASE) 50 mcg/actuation nasal spray Use 2 Sprays in each nostril once daily as needed. 3 Each 3 ipratropium bromide (ATROVENT) 42 mcg (0.06 %) nasal spray Use 2 Sprays in the nose daily at bedtime. betamethasone dipropionate, augmented (DIPROLENE) 0.05 % cream APPLY TO HANDS ONCE DAILY AT NIGHT WHEN FLARED, COVER WITH COTTON GLOVES OVERNIGHT calcium citrate/vitamin D3 (CALCIUM CITRATE + D ORAL) Take 1 t (more content not included)...[facility]11-25-2024 History of Present illness Narrative* Emiliana Estevez MD - 08/12/2024 11:36 AM EST Images from the original note were not included. Emiliana Estevez MD Interventional Cardiology [address] [place] [id number] [phone] Chief Complaint Patient presents with: Established Patient Follow-Up: 6 mo follow up HISTORY OF PRESENT ILLNESS: Mr. Spann is a 79 year old male seen in my office today for assessment management prior history ofsevere three-vessel coronary artery disease and left main underwent bypass surgery JEFF to the LAD vein graft to the circumflex and vein graft to the PDA doing well from the cardiac 1 to be asymptomatic denies chest pain or shortness of breath Major complication claudications and muscle ache possible peripheral vascular disease versus statininduced myalgia Cardiac Risk Factors age (male over 45, female over 55), hyperlipidemia, history of smoking, hypertension, family history of CAD PAST MEDICAL HISTORY Diagnosis Date Abnormal REM sleep REM dependent ALFONSO Arthritis BPH with obstruction/lower urinary tract symptoms CAD (coronary artery disease) Diabetes (HCC) Diarrhea 05/11/2005 Enthesopathy of hip region 05/11/2005 Esophageal reflux 05/11/2005 Hemorrhage of gastrointestinal tract, unspecified 05/11/2005 History of transfusion Pt thinks maybe w/ his open heart;He possibly had a transfusion IFG (impaired fasting glucose) Intestinal infection due to campylobacter 05/11/2005 Migraine without aura, without mention of intractable migraine without mention of status migrainosus 05/11/2005 Propranolol effective for prevention Motion sickness Nocturnal hypoxemia Diagnosed on PSG Primary hypertension 05/11/2005 PUD (peptic ulcer disease) 1968 conservative tx while in service Pure hypercholesterolemia 05/11/2005 Sciatica 05/11/2005 Sleep apnea APAP uses nightly;Pt repors he's a very sallow breather Thyroid disease PAST SURGICAL HISTORY Procedure Laterality Date APPENDECTOMY CABG (3) VEIN GRAFTS & ARTERIAL GRAFT(S) 10/25/2021 CHOLECYSTECTOMY COLONOSCOPY FLX DX W/COLLJ SPEC WHEN PFRMD 01/29/2001 Colonoscopy COLONOSCOPY FLX DX W/COLLJ SPEC WHEN PFRMD 03/26/2018 Colonoscopy COLONOSCOPY W/BIOPSY SINGLE/MULTIPLE 05/16/2008 ESOPHAGOGASTRODUODENOSCOPY TRANSORAL DIAGNOSTIC 03/26/2018 EGD ESOPHAGOSCOPY FLEX BALLOON DILAT <30 MM DIAM 04/12/2006 Esophageal dilatation PAST SURGICAL HISTORY OF 1999 hemorrhoidectomy PAST SURGICAL HISTORY OF left footsurgery PAST SURGICAL HISTORY OF 1990 Brad fundoplication PAST SURGICAL HISTORY OF 10/2006 re-do fundoplication Dr Felix PAST SURGICAL HISTORY OF 03/07/2022 Spinal cord stimulator placement RPR 1ST INGUN HRNA AGE 7 YRS/> REDUCIBLE age 17 Hernia repair, inguinal, left FAMILY HISTORY Problem Relation Age of Onset Diabetes Mother Heart Father [place] Diabetes Brother Stroke Maternal Grandfather Cancer Paternal Grandfather Social History Tobacco Use Smoking status: Former Current packs/day: 0.00 Average packs/day: 1.5 packs/day for 6.0 years (9.0 ttl pk-yrs) Types: Cigarettes Start date: 09/18/1964 Quit date: 09/18/1970 Years since quittin.9 Passive exposure: Never Smokeless tobacco: Never Vaping Use Vaping status: Never Used Substance Use Topics Alcohol use: Not Currently Comment: rarely Drug use: No ALLERGIES Allergen Reactions Flomax [Tamsulosin * Hives Percocet [Oxycodone* GI Upset Pt gets severe Nausea;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 Barium Sulfate Hives, Itching Pt has had barium multiple times in the past with no reaction. Only reaction one time Carafate [Sucralfat* GI Upset worsening of chest pain and IBS symptoms Penicillins unknown -childhood Erythromycin GI Upset only PO is problematic Medications: Current Outpatient Medications Medication Sig Dispense Refill traZODone (DESYREL) 50 mg tablet Take 0.5-1 tablets by mouth daily at bedtime. For insomnia and depression 90 tablet 3 losartan (COZAAR) 50 mg tablet take 1 tablet twice daily 180 tablet 3 amLODIPine (NORVASC) 5 mg tablet Take 1 tablet by mouth once daily. 90 tablet 3 metFORMIN ER (GLUCOPHAGE XR) 500 mg 24 hr tablet Take 1 tablet by mouth daily with breakfast. 90 tablet 3 propranolol ER (INDERAL LA) 120 mg 24 hr capsule Take 1 capsule by mouth once daily. 90 capsule 3 omeprazole (PRILOSEC) 40 mg capsule Take 1 capsule by mouth two times a day. 180 capsule 3 fluticasone (FLONASE) 50 mcg/actuation nasal spray Use 2 Sprays in each nostril once daily as needed. 3 Each 3 ipratropium bromide (ATROVENT) 42 mcg (0.06 %) nasal spray Use 2 Sprays in the nose daily at bedtime. betamethasone dipropionate, augmented (DIPROLENE) 0.05 % cream APPLY TO HANDS ONCE DAILY AT NIGHT WHEN FLARED, COVER WITH COTTON GLOVES OVERNIGHT calcium citrate/vitamin D3 (CALCIUM CITRATE + D ORAL) Take 1 tablet by mouth once daily. ibuprofen (ADVIL) 200 mg tablet Take 400 mg by mouth two times a day. acetaminophen (TYLENOL) 325 mg cap Take 650 mg by mouth once daily. Ascorbic Acid (VITAMIN C) 1,000 mg tablet Take 1,000 mg by mouth once daily. fluticasone propionate (FLOVENT INHALATION) Inhale as instructed as needed. loratadine (CLARITIN) 10 mg tablet Take 10 mg by mouth once daily. L.acidophilus-L.rhamnosus (PROBIOTIC) 15 billion cell capsule Take 1 capsule by mouth once daily. vitamin B complex (B COMPLEX 1 ORAL) Take 1 tablet by mouth once daily. multivitamin with minerals (DAILY MULTIVITAMIN-MINERALS) tablet Take 1 tablet by mouth once daily. melatonin 5 mg tablet Take 5 mg by mouth at bedtime as needed for insomnia. simethicone (GAS-X ORAL) Take 1 Capful by mouth once daily. dicyclomine (BENTYL) 20 mg tablet Take 1 tablet by mouth once daily. 90 tablet 3 ondansetron (ZOFRAN) 4 mg tablet Take 1 tablet by mouth every 8 hours as needed for nausea/vomiting. 30 tablet 3 Blood-Glucose Meter 1 Device as directed. Test Three times a day. Before breakfast, lunch and before bedtime. 1 Each 0 Blood Glucose Control, Normal soln 1 Ampule as directed. 1 Each 0 blood sugar diagnostic test strip Use with blood glucose test 3 times daily, Insulin Dep? No 300 Strip 5 Lancets lancets Use with blood glucose test 3 times daily. Insulin Dep? No 300 Each 5 alcohol swabs Use with blood glucose test 3 times daily. Insulin Dep? No 300 Each 5 docusate sodium (COLACE) 100 mg capsule Take 100 mg by mouth once daily. ipratropium 20 mcg-albuterol 100 mcg (COMBIVENT RESPIMAT) 20-100 mcg/actuation inhaler Inhale 1 Puff as instructed every 6 hours as needed. 4 g 11 promethazine (PHENERGAN) 25 mg tablet Take 1 tablet by mouth every 8 hours as needed. FOR NAUSEA 10tablet 1 albuterol HFA (VENTOLIN HFA) 90 mcg/actuation inhaler Inhale 2 Puffs as instructed every 4 hours asneeded for Wheezing/Shortness of Breath. 1 Inhaler 3 No current facility-administered medications for this visit. Review of Systems Constitutional: Negative for chills, diaphoresis, fever, malaise/fatigue and weight loss. HENT: Negative for congestion, ear discharge, ear pain, hearing loss, nosebleeds, sinus pain, sore throat and tinnitus. Eyes: Negative for blurred vision, double vision, photophobia, pain, discharge and redness. Respiratory: Negative for cough, hemoptysis, sputum production, shortness of breath, wheezing and stridor. Cardiovascular: Negative for chest pain, palpitations, orthopnea, claudication, leg swelling and PND. Gastrointestinal: Negative for abdominal pain, blood in stool, constipation, diarrhea, heartburn, melena, nausea and vomiting. Genitourinary: Negative for dysuria, flank pain, frequency, hematuria and urgency. Musculoskeletal: Negative for back pain, falls, joint pain, myalgias and neck pain. Skin: Negative for itching and rash. Neurological: Negative for dizziness, tingling, tremors, sensory change, speech change, focal weakness, seizures, loss of consciousness, weakness and headaches. Endo/Heme/Allergies: Negative for environmental allergies and polydipsia. Does not bruise/bleed easily. Psychiatric/Behavioral: Negative for depression, hallucinations, memory loss, substance abuse and suicidal ideas. The patient is not nervous/anxious and does not have insomnia. Physical Examination: Vitals:BP 167/80 Pulse 65 Wt 173 lb (78.5kg) SpO2 97% BP w/Orthostatic Vitals Date and Time Orthostatic BP Orthostatic Pulse BP Pulse BP Position BP Site BP Cuff Size 08/12/24 1058 -- -- 167/80 65 -- -- -- Last 2 Encounter Wt Readings: Date: Wt: 08/12/2024 78.5 kg (173 lb) 07/25/2024 78.8 kg (173 lb 11.6 oz) Physical Exam Constitutional: General: He is not in acute distress. Appearance: He is not diaphoretic. HENT: Head: Normocephalic and atraumatic. Right Ear: External ear normal. Left Ear: External ear normal. Nose: Nose normal. Mouth/Throat: Pharynx: Oropharynx is clear. Eyes: General: Right eye: No discharge. Left eye: No discharge. Conjunctiva/sclera: Conjunctivae normal. Pupils: Pupils are equal, round, and reactive to light. Cardiovascular: Rate and Rhythm: Normal rate and regular rhythm. Heart sounds: Normal heart sounds, S1 normal and S2 normal. No murmur heard. No friction rub. No gallop. No S3 or S4 sounds. Pulmonary: Effort: Pulmonary effort is normal. No respiratory distress. Breath sounds: Normal breath sounds. No wheezing or rales. Chest: Chest wall: No tenderness. Abdominal: General: Abdomen is flat. Musculoskeletal: General: Normal range of motion. Cervical back: Normal range of motion and neck supple. Skin: General: Skin is warm and dry. Neurological: Mental Status: He is alert and oriented to person, place, and time. Psychiatric: Mood and Affect: Mood normal. Thought Content: Thought content normal. Judgment: Judgment normal. Pertinent Labs: CBC: Hemoglobin (g/dL) Date Value 07/24/2024 13.0 08/11/2021 12.9 Hematocrit (%) Date Value 07/24/2024 39.4 08/11/2021 39.5 WBC (k/uL) Date Value 07/24/2024 5.65 08/11/2021 4.26 Platelet Count (k/uL) Date Value 07/24/2024 297 08/11/2021 280 BMP: Glucose (mg/dL) Date Value 07/24/2024 93 08/11/2021 102 Potassium (mmol/L) Date Value 07/24/2024 4.3 08/11/2021 4.2 Sodium (mmol/L) Date Value 07/24/2024 133 08/11/2021 140 Chloride (mmol/L) Date Value 07/24/2024 96 08/11/2021 101 CO2 (mmol/L) Date Value 07/24/2024 27 08/11/2021 29 Creatinine (mg/dL) Date Value 07/24/2024 0.89 08/11/2021 1.07 BUN (mg/dL) Date Value 07/24/2024 20 08/11/2021 22 Anion Gap (mmol/L) Date Value 07/24/2024 10 08/11/2021 10 Calcium (mg/dL) Date Value 08/11/2021 10.0 Calcium, Total (mg/dL) Date Value 07/24/2024 9.9 INR: Lipid Profile: Cholesterol, Total Date Value Ref Range Status 07/24/2024 144 <200 mg/dL Final Comment: <200 mg/dL, Desirable 200-239 mg/dL, Borderline high >239 mg/dL, High HDL Cholesterol Date Value Ref Range Status 07/24/2024 59 >39 mg/dL Final Comment: 40-59 mg/dL, Acceptable >59 mg/dL, High: Negative risk factor for coronary heart disease <40 mg/dL, Low: Positive risk factor for coronary heart disease LDL Cholesterol Date Value Ref Range Status 07/24/2024 71 <100 mg/dL Final Comment: <100 mg/dL, Optimal 100-129 mg/dL, Near optimal/above optimal 130-159 mg/dL, Borderline high 160-189 mg/dL, High >189 mg/dL, Very high Secondary prevention optimal LDL Cholesterol levels are recommended to be < 70 mg/dL Triglyceride Date Value Ref Range Status 07/24/2024 72 <150 mg/dL Final Comment: <150 mg/dL, Normal 150-199 mg/dL, Borderline high 200-499 mg/dL, High >499 mg/dL, Very high Hemoglobin A1C: No results found for: HGBA1C TSH: No results found for: TSHREFL Prior Cardiac Testing none Assessment and Plan: 79 years prior history of coronary artery disease and bypass surgery ASSESSMENT/PLAN: 1. Atherosclerosis of [place] artery of both lower extremities with intermittent claudication (HCC) - ICD9: 440.21, ICD10: I70.213 (primary diagnosis) Schedule him for pulse volume recording for assessment for possible peripheral vascular disease - [facility] 2. Mixed hyperlipidemia - ICD9: 272.2, ICD10: E78.2 - Controlled - Continue current medications - Counseled on healthy diet and regular exercise Statin induced myalgia patient will reduce his atorvastatin to 20 mg once daily 3. Primary hypertension - ICD9: 401.9, ICD10: I10 - Controlled - Continue current medications - Recommend home blood pressure monitoring, to bring results to next visit - Encouraged sodium restriction, DASH or Mediterranean diet - Recommend regular aerobic exercise 4. S/P CABG x 3 - ICD9: V45.81, ICD10: Z95.1 Stable coronary artery disease with no angina Emiliana Estevez MD Follow up planning: One year Electronically signed by Emiliana Estevez MD on August 12, 2024, 11:36 AM The above note was partially created using a dictation recognition software. A reasonable attempt has been made to correct any errors. documented in this encounterCenterville11-07-2024 History of Present illness Narrative* Sharad Brennan, LEAD SOFTWARE DEVELOPMENT ENGINEER.STAFF PSYCHOLOGIST - 07/25/2024 10:00 AM EST SUBJECTIVE: Urine Albumin:Creatinine Ratio Never done BP Controlled (<130/80) Never done HPI Tosha Spann is a 79 year old male. PMH significant for ACTIVE PROBLEM LIST Sciatica Enthesopathy of Hip Region Esophageal Reflux Essential Hypertension Migraine Without Aura, Without Mention of Intractable Migraine Without Mention of Status Migrainosus Diarrhea Hemorrhage of Gastrointestinal Tract, Unspecified Intestinal Infection Due to Campylobacter Myalgia and Myositis, Unspecified Esophagitis, Unspecified Bladder Neck Obstruction Hypertrophy of Prostate With Urinary Obstruction and Other Lower Urinary Tract Symptoms (Luts) Impotence of Organic Origin Mixed Hyperlipidemia Other Malaise and Fatigue Osteoporosis, Unspecified Hyperglycemia Osteoarthritis Contracture of Palmar Fascia Pain in Limb Viral Warts Inflamed Seborrheic Keratosis Other Seborrheic Keratosis Solar Lentigines Actinic Skin Damage Xerosis Cutis Sauceda Angioma Elevated Psa Ddd (Degenerative Disc Disease), Cervical Bph (Benign Prostatic Hypertrophy) With Urinary Obstruction Sensorineural Hearing Loss, Bilateral ALFONSO (obstructive sleep apnea), REM dependent Abnormal Rem Sleep Excessive Daytime Sleepiness Svt (Supraventricular Tachycardia) (Hcc) Tinnitus, Bilateral Ascending Aorta Dilatation (Hcc) Stable Angina Pectoris (Hcc) Cad (Coronary Artery Disease) S/P Cabg X 3 Current Moderate Episode of Major Depressive Disorder (Hcc) Chronic Midline Low Back Pain Psychophysiological Insomnia Ifg (Impaired Fasting Glucose) Mucopurulent Chronic Bronchitis (Hcc) Preop Testing Type 2 Diabetes Mellitus Without Complication, Without Long-Term Current Use of Insulin (Hcc) Bph With Obstruction/Lower Urinary Tract Symptoms Spinal Stenosis of Lumbar Region Right Leg Pain Presents for a routine visit today. HPI excerpted from previous visit: Mr. Spann was seen at [facility] emergency department on June 03, 2023 with lower extremity injury. Injury was to the right anterior thigh. He noted 1 episode of incontinence following but no new numbness anesthesia or fecal incontinence. He reported slipping down 3 stairs theday prior to arrival. Ice and compression wraps did not help much. He noted pain with movement and weakness secondary to the pain. Exam documented as unremarkable. X-ray completed and did not show a fracture of the femur. He declined pain medicine. He was advised to avoid weightbearing and use crutches. [id number] pain medicines and follow-up with primary care. He was seen by Dr. Lei pain management subsequently and underwent MRI lower extremity of the right side without contrast which showed large knee effusion, extensive superficial subcutaneous soft tissue edema and extensive circumferential strains of the anterior posterior medial and lateral jose rtmental musculature. Distal quadriceps tendinosis with increased signal intensity and thickening noted. Normal femur. Today reports he had 2 recent falls with the same footwear which he has now turned away. He reports the last fall falling over to his side on gravel/garden He reports taking as needed ibuprofen. No report of GERD symptoms or signs of GI bleeding. Notes icing periodically. Elevating his leg. Not currently using an Mathew wrap because he was ballooning out above and below. Orthopedic appointment has not yet been scheduled. Notes pain of anterior quadriceps near knee, distal quadricep pain worse with flexion, not worse walking unless loses his balance. Anterior thigh pain up to groin level, but less than at knee. He notes he is in his usual state of health. He notes continued back pain. Has been worse since his fall. Notes he is finding stimulator which has not helped as much since the fall. No recent visit with Dr. Lei pain management. He notes that Dr. Lei also wants to give him the lumbar injection to help with back pain however he has difficulty getting a ride to and from the appointment. Continued knee pain, underwent injection to his knee which did help. He notes drinking most of his daily fluid earlier in the day around 6 PM. Notes he can feel dizzy in the morning when he wakes up until he drinks some fluid. Notes blood sugars well-controlled from 100-110s when checking about once per week. No low readings. Sees counselor since his 2 years ago. Does have some trouble sleeping, melatonin and trazodone do help. Reports read a book Out[employer] which he found very helpful. Notes drinks olive oil and lemon daily for his health. DIABETES MELLITUS: Without report of excessive thirst or increased frequency of urination, chest pain or dyspnea , numbness, tingling or pain in extremities, new or unusual visual symptoms, low sugar/hypoglycemic reactions, weight loss/gain, lightheadedness/dizziness, and bowel changes/loose stools. . 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 Does see [facility] provider routinely. HTN: Without report of headache, chest pain, palpitations, dyspnea, peripheral edema, orthopnea, fatigue, and PND. Last 3 Encounter BP Readings: Date: BP: 07/25/2024 138/78 01/22/2024 153/79 01/15/2024 173/91 Hyperlipidemia. Mr. Spann reports doing well on current therapy.His most recent lipid panels are: Cholesterol, Total (mg/dL) Date Value 07/24/2024 144 11/17/2022 136 01/27/2020 156 04/29/2019 154 Total Cholesterol, Nonfasting (mg/dL) Date Value 04/06/2021 131 HDL Cholesterol (mg/dL) Date Value 07/24/2024 59 11/17/2022 57 01/27/2020 51 04/29/2019 57 HDL Cholesterol, Nonfasting (mg/dL) Date Value 04/06/2021 54 LDL Cholesterol (mg/dL) Date Value 07/24/2024 71 11/17/2022 62 01/27/2020 84 04/29/2019 77 LDL Cholesterol, Nonfasting (mg/dL) Date Value 04/06/2021 62 Triglyceride (mg/dL) Date Value 07/24/2024 72 11/17/2022 84 01/27/2020 104 04/29/2019 99 Triglycerides, Nonfasting (mg/dL) Date Value 04/06/2021 77 Review of Systems Constitutional: Negative. Musculoskeletal: Positive for arthralgias, back pain and myalgias. Objective BP 138/78 Pulse 65 Resp 16 Wt 78.8 kg (173 lb 11.6 oz) BMI 25.65 kg/m Physical Exam Vitals and nursing note reviewed. Constitutional: Appearance: Normal appearance. HENT: Head: Normocephalic and atraumatic. Eyes: Conjunctiva/sclera: Conjunctivae normal. Cardiovascular: Rate and Rhythm: Normal rate and regular rhythm. Heart sounds: Normal heart sounds. Pulmonary: Effort: Pulmonary effort is normal. Breath sounds: Normal breath sounds. Abdominal: General: Bowel sounds are normal. Palpations: Abdomen is soft. Musculoskeletal: Lumbar back: Tenderness present. Decreased range of motion. Right knee: Decreased range of motion. Tenderness present. Skin: General: Skin is dry. Neurological: General: No focal deficit present. Mental Status: He is alert and oriented to person, place, and time. ALLERGIES Allergen Reactions Flomax [Tamsulosin * Hives Percocet [Oxycodone* GI Upset Pt gets severe Nausea;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 Barium Sulfate Hives, Itching Pt has had barium multiple times in the past with no reaction. Only reaction one time Carafate [Sucralfat* GI Upset worsening of chest pain and IBS symptoms Penicillins unknown -childhood Erythromycin GI Upset only PO is problematic Medications rosuvastatin (CRESTOR) 20 mg tablet take 1 tablet at bedtime losartan (COZAAR) 50 mg tablet take 1 tablet twice daily amLODIPine (NORVASC) 5 mg tablet Take 1 tablet by mouth once daily. metFORMIN ER (GLUCOPHAGE XR) 500 mg 24 hr tablet Take 1 tablet by mouth daily with breakfast. propranolol ER (INDERAL LA) 120 mg 24 hr capsule Take 1 capsule by mouth once daily. omeprazole (PRILOSEC) 40 mg capsule Take 1 capsule by mouth two times a day. fluticasone (FLONASE) 50 mcg/actuation nasal spray Use 2 Sprays in each nostril once daily as needed. ipratropium bromide (ATROVENT) 42 mcg (0.06 %) nasal spray Use 2 Sprays in the nose daily at bedtime. betamethasone dipropionate, augmented (DIPROLENE) 0.05 % cream APPLY TO HANDS ONCE DAILY AT NIGHT WHEN FLARED, COVER WITH COTTON GLOVES OVERNIGHT calcium citrate/vitamin D3 (CALCIUM CITRATE + D ORAL) Take 1 tablet by mouth once daily. ibuprofen (ADVIL) 200 mg tablet Take 400 mg by mouth two times a day. acetaminophen (TYLENOL) 325 mg cap Take 650 mg by mouth once daily. Ascorbic Acid (VITAMIN C) 1,000 mg tablet Take 1,000 mg by mouth once daily. fluticasone propionate (FLOVENT INHALATION) Inhale as instructed as needed. loratadine (CLARITIN) 10 mg tablet Take 10 mg by mouth once daily. L.acidophilus-L.rhamnosus (PROBIOTIC) 15 billion cell capsule Take 1 capsule by mouth once daily. vitamin B complex (B COMPLEX 1 ORAL) Take 1 tablet by mouth once daily. multivitamin with minerals (DAILY MULTIVITAMIN-MINERALS) tablet Take 1 tablet by mouth once daily. melatonin 5 mg tablet Take 5 mg by mouth at bedtime as needed for insomnia. simethicone (GAS-X ORAL) Take 1 Capful by mouth once daily. dicyclomine (BENTYL) 20 mg tablet Take 1 tablet by mouth once daily. ondansetron (ZOFRAN) 4 mg tablet Take 1 tablet by mouth every 8 hours as needed for nausea/vomiting. Blood-Glucose Meter 1 Device as directed. Test Three times a day. Before breakfast, lunch and before bedtime. Blood Glucose Control, Normal soln 1 Ampule as directed. blood sugar diagnostic test strip Use with blood glucose test 3 times daily, Insulin Dep? No Lancets lancets Use with blood glucose test 3 times daily. Insulin Dep? No alcohol swabs Use with blood glucose test 3 times daily. Insulin Dep? No docusate sodium (COLACE) 100 mg capsule Take 100 mg by mouth once daily. ipratropium 20 mcg-albuterol 100 mcg (COMBIVENT RESPIMAT) 20-100 mcg/actuation inhaler Inhale 1 Puff as instructed every 6 hours as needed. promethazine (PHENERGAN) 25 mg tablet Take 1 tablet by mouth every 8 hours as needed. FOR NAUSEA albuterol HFA (VENTOLIN HFA) 90 mcg/actuation inhaler Inhale 2 Puffs as instructed every 4 hours asneeded for Wheezing/Shortness of Breath. traZODone (DESYREL) 50 mg tablet Take 0.5-1 tablets by mouth daily at bedtime. For insomnia and depression phenazopyridine (PYRIDIUM) 200 mg tablet Take 1 tablet by mouth three times a day as needed. (Patient not taking: Reported on 01/15/2024) MEDICATION, NON-DATABASE Take 1 tablet by mouth once daily. Beta Sisosterol PAST MEDICAL HISTORY Diagnosis Date Abnormal REM sleep REM dependent ALFONSO Arthritis BPH with obstruction/lower urinary tract symptoms CAD (coronary artery disease) Diabetes (HCC) Diarrhea 05/11/2005 Enthesopathy of hip region 05/11/2005 Esophageal reflux 05/11/2005 Hemorrhage of gastrointestinal tract, unspecified 05/11/2005 History of transfusion Pt thinks maybe w/ his open heart;He possibly had a transfusion IFG (impaired fasting glucose) Intestinal infection due to campylobacter 05/11/2005 Migraine without aura, without mention of intractable migraine without mention of status migrainosus 05/11/2005 Propranolol effective for prevention Motion sickness Nocturnal hypoxemia Diagnosed on PSG Primary hypertension 05/11/2005 PUD (peptic ulcer disease) 1968 conservative tx while in service Pure hypercholesterolemia 05/11/2005 Sciatica 05/11/2005 Sleep apnea APAP uses nightly;Pt repors he's a very sallow breather Thyroid disease Social History Tobacco Use Smoking status: Former Current packs/day: 0.00 Average packs/day: 1.5 packs/day for 6.0 years (9.0 ttl pk-yrs) Types: Cigarettes Start date: 09/18/1964 Quit date: 09/18/1970 Years since quittin.8 Passive exposure: Never Smokeless tobacco: Never Vaping Use Vaping status: Never Used Substance Use Topics Alcohol use: Not Currently Comment: rarely Drug use: No Latest Ref Rng 08/23/2023 01/08/2024 07/24/2024 Protein, Total 6.3 - 8.0 g/dL 7.2 Albumin 3.9 - 4.9 g/dL 4.8 Calcium 8.5 - 10.2 mg/dL 10.0 9.9 Bilirubin, Total 0.2 - 1.3 mg/dL 0.4 Alkaline Phosphatase 38 - 113 U/L 43 AST 14 - 40 U/L 14 ALT 10 - 54 U/L 14 Glucose 74 - 99 mg/dL 96 93 BUN 9 - 24 mg/dL 16 20 Creatinine 0.73 - 1.22 mg/dL 0.88 0.89 Sodium 136 - 144 mmol/L 136 133 (L) Potassium 3.7 - 5.1 mmol/L 4.2 4.3 Chloride 98 - 107 mmol/L 99 96 (L) CO2 22 - 30 mmol/L 28 27 Anion Gap 8 - 15 mmol/L 9 10 eGFR >=60 mL/min/1.73m 89 88 WBC 3.70 - 11.00 k/uL 3.68 (L) 5.65 RBC 4.20 - 6.00 m/uL 4.26 4.18 (L) Hemoglobin 13.0 - 17.0 g/dL 13.4 13.0 Hematocrit 39.0 - 51.0 % 40.0 39.4 MCV 80.0 - 100.0 fL 93.9 94.3 MCH 26.0 - 34.0 pg 31.5 31.1 MCHC 30.5 - 36.0 g/dL 33.5 33.0 RDW-CV 11.5 - 15.0 % 13.0 12.6 Platelet Count 150 - 400 k/uL 247 297 MPV 9.0 - 12.7 fL 9.1 9.0 Absolute nRBC <0.01 k/uL <0.01 <0.01 Cholesterol, Total <200 mg/dL 144 Triglyceride <150 mg/dL 72 HDL Cholesterol >39 mg/dL 59 Non HDL Cholesterol <130 mg/dL 85 Fasting Time hrs 12 VLDL Cholesterol <30 mg/dL 14 TC:HDL Ratio <5.10 2.44 LDL Cholesterol <100 mg/dL 71 LDL:HDL Ratio <2.54 1.20 Hemoglobin A1C 4.3 - 5.6 % 5.3 5.5 Estimated Average Glucose mg/dL 105 111 Testosterone Free 3.08 - 11.3 ng/dL 13.8 (H) Testosterone 240 - 950 ng/dL 765 Apolipoprotein B <90 mg/dL 74 PSA <2.60 ng/mL 0.53 ASSESSMENT/PLAN: 1. Type 2 diabetes mellitus without complication, without long-term current use of insulin (HCC) - ICD9: 250.00, ICD10: E11.9 (primary diagnosis) - Controlled - Continue current medications - Counseled on healthy diet and regular exercise - Follow up in 6 months, sooner should any other issues arise. - ALBUMIN/CREATININE RATIO, URINE 2. Essential hypertension - ICD9: 401.9, ICD10: I10 controlle - Continue current medications - Encouraged sodium restriction, DASH or Mediterranean diet - Recommend regular aerobic exercise 3. Mixed hyperlipidemia - ICD9: 272.2, ICD10: E78.2 - Controlled - Continue current medications - Endorse healthy diet and regular exercise 4. Screening for diabetic retinopathy - ICD9: V80.2, ICD10: Z13.5 - CONSULT TO OPHTHALMOLOGY 5. Encounter for screening examination for other mental health and behavioral disorders - ICD9: V79.8, ICD10: Z13.39 - ANXIETY SCREENING 6. Psychophysiological insomnia - ICD9: 307.42, ICD10: F51.04 Followed by counselor - TRAZODONE 50 MG TABLET 7. Spinal stenosis of lumbar region, unspecified whether neurogenic claudication present - ICD9: 724.02, ICD10: M48.061 8. Right leg pain - ICD9: 729.5, ICD10: M79.604 Continue with current treatment unchanged for now 9. Encounter for immunization - ICD9: V03.89, ICD10: Z23 - PFIZER-BIONTECH COVID-19 VACCINE AGE 12+ YR (COMIRNATY)-declined 6 mo follow up Nevin Marquez MD with blanca Brennan APRN.STAFF PSYCHOLOGIST Medical Decision Making: Problems: Moderate: 2+ stable chronic illnesses Data: Unique test(s) ordered: 3+ Risk: Moderate: Drug management Medical Decision Making Level: 4 - Moderate documented in this encounterCenterville11-07-2024 NoteHNO ID: [id number] Author: SHARAD BRENNAN APRN.STAFF PSYCHOLOGIST Service: ? Author Type: Nurse Specialist Type: Progress Notes Filed: 07/25/2024 11:43 Note Text: SUBJECTIVE: Urine Albumin:Creatinine Ratio Never done BP Controlled (<130/80) Never done HPI Tosha Spann is a 79 year old male. PMH significant for ACTIVE PROBLEM LIST Sciatica Enthesopathy of Hip Region Esophageal Reflux Essential Hypertension Migraine Without Aura, Without Mention of Intractable Migraine Without Mention of Status Migrainosus Diarrhea Hemorrhage of Gastrointestinal Tract, Unspecified Intestinal Infection Due to Campylobacter Myalgia and Myositis, Unspecified Esophagitis, Unspecified Bladder Neck Obstruction Hypertrophy of Prostate With Urinary Obstruction and Other Lower Urinary Tract Symptoms (Luts) Impotence of Organic Origin Mixed Hyperlipidemia Other Malaise and Fatigue Osteoporosis, Unspecified Hyperglycemia Osteoarthritis Contracture of Palmar Fascia Pain in Limb Viral Warts Inflamed Seborrheic Keratosis Other Seborrheic Keratosis Solar Lentigines Actinic Skin Damage Xerosis Cutis Sauceda Angioma Elevated Psa Ddd (Degenerative Disc Disease), Cervical Bph (Benign Prostatic Hypertrophy) With Urinary Obstruction Sensorineural Hearing Loss, Bilateral ALFONSO (obstructive sleep apnea), REM dependent Abnormal Rem Sleep Excessive Daytime Sleepiness Svt (Supraventricular Tachycardia) ([facility]) Tinnitus, Bilateral Ascending Aorta Dilatation ([facility]) Stable Angina Pectoris ([facility]) Cad (Coronary Artery Disease) S/P Cabg X 3 Current Moderate Episode of Major Depressive Disorder ([facility]) Chronic Midline Low Back Pain Psychophysiological Insomnia Ifg (Impaired Fasting Glucose) Mucopurulent Chronic Bronchitis ([facility]) Preop Testing Type 2 Diabetes Mellitus Without Complication, Without Long-Term Current Use of Insulin ([facility]) Bph With Obstruction/Lower Urinary Tract Symptoms Spinal Stenosis of Lumbar Region Right Leg Pain Presents for a routine visit today. HPI excerpted from previous visit: Mr. Spann was seen at [facility] emergency department on June 03, 2023 with lower extremity injury. Injury was to the right anterior thigh. He noted 1 episode of incontinence following but no new numbness anesthesia or fecal incontinence. He reported slipping down 3 stairs the day prior to arrival. Ice and compression wraps did not help much. He noted pain with movement and weakness secondary to the pain. Exam documented as unremarkable. X-ray completed and did not show a fracture of the femur. He declined pain medicine. He was advised to avoid weightbearing and use crutches. Mbhr-[id number] pain medicines and follow-up with primary care. He was seen by Dr. Lei pain management subsequently and underwent MRI lower extremity of the right side without contrast which showed large knee effusion, extensive superficial subcutaneous soft tissue edema and extensive circumferential strains of the anterior posterior medial and lateral compartmental musculature. Distal quadriceps tendinosis with increased signal intensity and thickening noted. Normal femur. Today reports he had 2 recent falls with the same footwear which he has now turned away. He reports the last fall falling over to his side on gravel/garden He reports taking as needed ibuprofen. No report of GERD symptoms or signs of GI bleeding. Notes icing periodically. Elevating his leg. Not currently using an Mathew wrap because he was ballooning out above and below. Orthopedic appointment has not yet been scheduled. Notes pain of anterior quadriceps near knee, distal quadricep pain worse with flexion, not worse walking unless loses his balance. Anterior thigh pain up to groin level, but less than at knee. He notes he is in his usual state of health. He notes continued back pain. Has been worse since his fall. Notes he is finding stimulator which has not helped as much since the fall. No recent visit with Dr. Lei pain management. He notes that Dr. Lei also wants to give him the lumbar injection to help with back pain however he has difficulty getting a ride to and from the appointment. Continued knee pain, underwent injection to his knee which did help. He notes drinking most of his daily fluid earlier in the day around 6 PM. Notes he can feel dizzy in the morning when he wakes up until he drinks some fluid. Notes blood sugars well-controlled from 100-110s when checking about once per week. No low readings. Sees counselor since his 2 years ago. Does have some trouble sleeping, melatonin and trazodone do help. Reports read a book [employer] which he found very helpful. Notes drinks olive oil and lemon daily for his health. DIABETES MELLITUS: Without report of excessive thirst or increased frequency of urination, chest pain or dyspnea , numbness, tingling or pain in extremities, n (more content not included)...[facility]10-31-2024 NoteHNO ID: [id number] Author: SUZIE ORTEGA PA-C Service: ? Author Type: Physician Engineering Psychologist Type: Progress Notes Filed: 07/18/2024 11:52 Note Text: CHIEF COMPLAINT: Tosha Spann is a 79 year old male who presents today for Right knee pain/cortisone injections PAIN EVALUATION 07/18/2024 0948 Pain Level: 5 Pain Location: Knee-Right Description: Sharp;Throbbing;Dull Duration Amount of Time: 13 Duration Units: Months Frequency: Continuous Intervention/Comfort measure: Medication HISTORY OF PRESENT ILLNESS: Art is here for evaluation of acute on chronic right knee pain He has had multiple issues involving his back but recently started having worsening specific pain to the knee along with knee swelling and tightness Denies recent injury but over a year ago had a big injury to that leg that only injured his back and hip possible cause pain in the knee States between physical therapy, Tylenol, Advil and modifying activities he was seen really good progress and improvement but over the past 6 months his pain has been returning and not responding to those conservative measures He is aware that he has some back issues and sees pain management but they recommended an orthopedic follow-up due to the swelling and pain in the knee REVIEW OF SYMPTOMS: Constitutional: patient denies any recent fever or significant change in weight Gastrointestinal: patient denies any current abdominal discomfort Musculoskeletal: as noted in the HPI Neurologic: as noted in the HPI SOCIAL HISTORY: Tobacco Use: 1.5 packs/day, for 6 years. Quit 09/18/1970. Types: Cigarettes ALLERGIES: ALLERGIES Allergen Reactions Flomax [Tamsulosin * Hives Percocet [Oxycodone* GI Upset Pt gets severe Nausea;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 Barium Sulfate Hives, Itching Pt has had barium multiple times in the past with no reaction. Only reaction one time Carafate [Sucralfat* GI Upset worsening of chest pain and IBS symptoms Penicillins unknown -childhood Erythromycin GI Upset only PO is problematic PAST MEDICAL HISTORY: PAST MEDICAL HISTORY Diagnosis Date Abnormal REM sleep REM dependent ALFONSO Arthritis BPH with obstruction/lower urinary tract symptoms CAD (coronary artery disease) Diabetes (HCC) Diarrhea 05/11/2005 Enthesopathy of hip region 05/11/2005 Esophageal reflux 05/11/2005 Hemorrhage of gastrointestinal tract, unspecified 05/11/2005 History of transfusion Pt thinks maybe w/ his open heart;He possibly had a transfusion IFG (impaired fasting glucose) Intestinal infection due to campylobacter 05/11/2005 Migraine without aura, without mention of intractable migraine without mention of status migrainosus 05/11/2005 Propranolol effective for prevention Motion sickness Nocturnal hypoxemia Diagnosed on PSG Primary hypertension 05/11/2005 PUD (peptic ulcer disease) 1968 conservative tx 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 Vitals: There were no vitals taken for this visit. Skin: Skin color, texture, turgor normal, no suspicious rashes or lesions noted Cardiovascular: no signs of upper or lower extremity edema Psychiatric: mood and affect are appropriate, patient is oriented to time, place and person Neurologic: sensation is grossly intact Lymphatic: no asymetric limb swelling noted General Appearance: Well appearing, alert, in no acute distress, well-hydrated, and well nourished Respiratory: no respiratory distress, no audible wheezing, no labored breathing, symmetric thoracic excursion Right knee(s): Neurovascularly intact No erythema, warmth or breaks in the skin concerning for infection Range of motion appropriate with apprehension and tightness in both extension and flexion 1+ joint effusion No joint laxity or instability Able to stand and ambulate IMAGING: No imaging was performed today. CLINICAL IMPRESSION / ASSESSMENT: (M17.11) Primary osteoarthritis of right knee (primary encounter diagnosis) RECOMMENDATION / PLAN: Follow up- as needed With his joint effusion and pain in the right knee along the joint line I suspect that while he has chronic pain from the back this discomfort particularly is coming from his knee arthritis seen on x-ray. We discussed treatment options and he is interested in a cortisone injection today Tolerated procedure described below well. Large Joint Arthro/Inj: R knee joint Informed Consent Consent Obtained: Verbal [place] Protocol A moment to CARE was completed. SIGN IN Personnel directly involved with the procedure wore the appropriate PPE. Special Equipment: N/A Patient/Surrogate Stated/Verified: Patient name, Date of , Relevant allergies and (more content not included)...[facility]10-31-2024 History of Present illness Narrative* Suzie Ortega PA-C - 07/18/2024 10:54 AM EDTAssociated Order(s): Large Joint Arthro/Inj: R knee joint Post-Procedure Diagnose(s): Primary osteoarthritis of right knee CHIEF COMPLAINT: Tosha Spann is a 79 year old male who presents today for Right knee pain/cortisone injections PAIN EVALUATION 07/18/2024 0948 Pain Level: 5 Pain Location: Knee-Right Description: Sharp;Throbbing;Dull Duration Amount of Time: 13 Duration Units: Months Frequency: Continuous Intervention/Comfort measure: Medication HISTORY OF PRESENT ILLNESS: Art is here for evaluation of acute on chronic right knee pain He has had multiple issues involving his back but recently started having worsening specific pain to the knee along with knee swelling and tightness Denies recent injury but over a year ago had a big injury to that leg that only injured his back and hip possible cause pain in the knee States between physical therapy, Tylenol, Advil and modifying activities he was seen really good progress and improvement but over the past 6 months his pain has been returning and not responding to those conservative measures He is aware that he has some back issues and sees pain management but they recommended an orthopedic follow-up due to the swelling and pain in the knee REVIEW OF SYMPTOMS: Constitutional: patient denies any recent fever or significant change in weight Gastrointestinal: patient denies any current abdominal discomfort Musculoskeletal: as noted in the HPI Neurologic: as noted in the HPI SOCIAL HISTORY: Tobacco Use: 1.5 packs/day, for 6 years. Quit 09/18/1970. Types: Cigarettes ALLERGIES: ALLERGIES Allergen Reactions Flomax [Tamsulosin * Hives Percocet [Oxycodone* GI Upset Pt gets severe Nausea;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 Barium Sulfate Hives, Itching Pt has had barium multiple times in the past with no reaction. Only reaction one time Carafate [Sucralfat* GI Upset worsening of chest pain and IBS symptoms Penicillins unknown -childhood Erythromycin GI Upset only PO is problematic PAST MEDICAL HISTORY: PAST MEDICAL HISTORY Diagnosis Date Abnormal REM sleep REM dependent ALFONSO Arthritis BPH with obstruction/lower urinary tract symptoms CAD (coronary artery disease) Diabetes (HCC) Diarrhea 05/11/2005 Enthesopathy of hip region 05/11/2005 Esophageal reflux 05/11/2005 Hemorrhage of gastrointestinal tract, unspecified 05/11/2005 History of transfusion Pt thinks maybe w/ his open heart;He possibly had a transfusion IFG (impaired fasting glucose) Intestinal infection due to campylobacter 05/11/2005 Migraine without aura, without mention of intractable migraine without mention of status migrainosus 05/11/2005 Propranolol effective for prevention Motion sickness Nocturnal hypoxemia Diagnosed on PSG Primary hypertension 05/11/2005 PUD (peptic ulcer disease) 1968 conservative tx 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 Vitals: There were no vitals taken for this visit. Skin: Skin color, texture, turgor normal, no suspicious rashes or lesions noted Cardiovascular: no signs of upper or lower extremity edema Psychiatric: mood and affect are appropriate, patient is oriented to time, place and person Neurologic: sensation is grossly intact Lymphatic: no asymetric limb swelling noted General Appearance: Well appearing, alert, in no acute distress, well-hydrated, and well nourished Respiratory: no respiratory distress, no audible wheezing, no labored breathing, symmetric thoracicexcursion Right knee(s): Neurovascularly intact No erythema, warmth or breaks in the skin concerning for infection Range of motion appropriate with apprehension and tightness in both extension and flexion 1+ joint effusion No joint laxity or instability Able to stand and ambulate IMAGING: No imaging was performed today. CLINICAL IMPRESSION / ASSESSMENT: (M17.11) Primary osteoarthritis of right knee (primary encounter diagnosis) RECOMMENDATION / PLAN: Follow up- as needed With his joint effusion and pain in the right knee along the joint line I suspect that while he haschronic pain from the back this discomfort particularly is coming from his knee arthritis seen on x-ray. We discussed treatment options and he is interested in a cortisone injection today Tolerated procedure described below well. Large Joint Arthro/Inj: R knee joint Informed Consent Consent Obtained: Verbal [place] Protocol A moment to CARE was completed. SIGN IN Personnel directly involved with the procedure wore the appropriate PPE. Special Equipment: N/A Patient/Surrogate Stated/Verified: Patient name, Date of , Relevant allergies and Intended procedure TIME OUT Intended patient and procedure match the source document(s). Consent documented and matches the intended procedure. Relevant labs, photos, and/or imaging studies have been reviewed. Correct side/site marked and visible. Medications required for procedure verified. No fire risk assessment and interventions applicable. No implant(s) inserted. 07/18/2024 11:51 AM The procedure site was prepped in the usual sterile fashion. Site: R knee joint Medications: 40 mg triamcinolone acetonide 40 mg/mL Anesthetics: 4 mL lidocaine (PF) 10 mg/mL (1 %) Outcome: Tolerated well, no immediate complications Post-injection instructions were reviewed with the patient and the patient voiced understanding of these instructions. SIGN OUT No specimen collected. All instruments, equipment, possible retained foreign bodies accounted for. Post-procedure follow-up management communicated and Plan of Care Visit completed when applicable Follow up: if symptoms persist or worsen Films prior to visit: No additional imaging warranted. Verbal health education was given to patient. Patient verbalizes understanding and agrees with the treatment plan as detailed above. I spent a total of 30 minutes on the date of the service which included preparing to see the patient, [id number] patient care, completing clinical documentation, performing a medically appropriate examination, counseling and educating the patient/family/caregiver, ordering medications, tests, or p rocedures, and communicating results to the patient/family/caregiver. Suzie Ortega PA-C, EFE documented in this encounterCenterville10-31-2024 History of Present illness Narrative* Anh Hernandez CT - 07/18/2024 9:30 AM EDT Radiology Service Progress Note PATIENT NAME: Tosha Spann DATE OF SERVICE: July 18, 2024 TIME: 9:42 AM PATIENT IDENTITY VERIFICATION COMPLETED USING TWO (2) IDENTIFIERS: Name and Date of confirmedby patient verbally. FALL SCREENING: Has the patient had 2 falls in the last year or 1 fall with injury or currently using an Ambulatory Assistive Device (Walker, Cane, Wheelchair, Crutches, etc.)? No PATIENT GENDER DATA: Male PATIENT RELEVANT IMPLANT DATA REVIEWED: Not Applicable PATIENT PRESENTS WITH AN IMPLANTABLE OR ATTACHED ELECTRIC METER TESTER: No RADIOLOGY DEPARTMENT: General X-ray: Exam(s) Completed: Lower Extremity X- Ray(s): Knee, AP / Lat / Tunne / Merchant Right and Wt. Bearing PERIPHERAL IV DATA: Not applicable SIGNED BY: LACY Wagner July 18, 2024 9:42 AM documented in this encounterCenterville10-31-2024 NoteHNO ID: [id number] Author: ANH HERNANDEZ CT Service: Radiology Author Type: Technologist Type: Progress Notes Filed: 07/18/2024 09:43 Note Text: Radiology Service Progress Note PATIENT NAME: Tosha Spann DATE OF SERVICE: July 18, 2024 TIME: 9:42 AM PATIENT IDENTITY VERIFICATION COMPLETED USING TWO (2) IDENTIFIERS: Name and Date of confirmed by patient verbally. FALL SCREENING: Has the patient had 2 falls in the last year or 1 fall with injury or currently using an Ambulatory Assistive Device (Walker, Cane, Wheelchair, Crutches, etc.)? No PATIENT GENDER DATA: Male PATIENT RELEVANT IMPLANT DATA REVIEWED: Not Applicable PATIENT PRESENTS WITH AN IMPLANTABLE OR ATTACHED ELECTRIC METER TESTER: No RADIOLOGY DEPARTMENT: General X-ray: Exam(s) Completed: Lower Extremity X-Ray(s): Knee, AP / Lat / Tunne / Merchant Right and Wt. Bearing PERIPHERAL IV DATA: Not applicable SIGNED BY: LACY Wagner July 18, 2024 9:42 [facility]08-13-2024 Telephone encounter Note* Telephone Encounter - Anisa García LPN - 04/30/2024 1:55 PM EDT Prescription Refill Information The patient has been identified by name and date of : Yes Caregiver verified no other encounters exist for this prescription request: Yes Caregiver confirmed with patient/requestor that no other refills are due, in the near future, with this provider at this time: Yes The last office visit in the department: 01/22/24 Does the patient have a future office visit with this provider/department: Yes Requested Prescriptions Pending Prescriptions Disp Refills traZODone (DESYREL) 50 mg tablet 90 tablet 0 Sig: Take 0.5-1 tablets by mouth daily at bedtime. For insomnia and depression Anisa García LPN April 30, 2024 1:55 PM [place]08-13-2024 Miscellaneous Notes* Telephone Encounter - Anisa García LPN - 04/30/2024 1:55 PM EDT Prescription Refill Information The patient has been identified by name and date of : Yes Caregiver verified no other encounters exist for this prescription request: Yes Caregiver confirmed with patient/requestor that no other refills are due, in the near future, with this provider at this time: Yes The last office visit in the department: 01/22/24 Does the patient have a future office visit with this provider/department: Yes Requested Prescriptions Pending Prescriptions Disp Refills traZODone (DESYREL) 50 mg tablet 90 tablet 0 Sig: Take 0.5-1 tablets by mouth daily at bedtime. For insomnia and depression Anisa García LPN April 30, 2024 1:55 PM documented in this encounterCenterville07-23-2024 History of Present illness Narrative* Cipriano Thomas Jr., MD - 04/09/2024 12:19 PM EDT ESTABLISHED PATIENT OFFICE VISIT HPI Tosha Spann is a 78 year old male who presents sp turp. Doing ok. Off finasteride. Luts about the same. Path benign 04/09/24 - doing well since last seen. Psa 0.53. off all prostate meds. Luts controlled. No fever. No uti. LAB: Creatinine Date Value Ref Range Status 08/23/2023 0.88 0.73 - 1.22 mg/dL Final PSA (ng/mL) Date Value 01/08/2024 0.53 12/15/2021 1.36 11/09/2020 2.38 04/07/2020 1.32 01/30/2019 1.45 12/12/2016 3.60 01/20/2015 2.37 08/11/2014 2.38 06/19/2013 2.81 05/13/2013 5.39 01/14/2013 3.29 04/30/2012 3.19 PSA Screening (ng/mL) Date Value 11/17/2022 1.22 12/15/2021 1.38 Glucose, Urine Date Value 10/13/2021 Negative 02/21/2018 Negative mg/dL Bilirubin, Urine (no units) Date Value 10/13/2021 Negative 02/21/2018 Negative Ketones, Urine (no units) Date Value 10/13/2021 Negative 02/21/2018 Negative Specific [place], Ur (no units) Date Value 10/13/2021 1.013 02/21/2018 1.012 Hemoglobin/Blood,Ur Date Value 10/13/2021 Negative 02/21/2018 Negative pH, Urine (no units) Date Value 10/13/2021 6.5 02/21/2018 6.0 Protein, Urine Date Value 10/13/2021 Negative 02/21/2018 Negative mg/dL Urobilinogen, Urine (EU) Date Value 05/01/2012 0.2N Nitrites (no units) Date Value 10/13/2021 Negative 02/21/2018 Negative Leukocytes (no units) Date Value 05/01/2012 NEG WBC, Urine Date Value 10/13/2021 0-5 /HPF 02/21/2018 0-5 /HPF Color/Appearance (comment:) Date Value 05/01/2012 YELLOW/CLEAR MEDICATIONS: rosuvastatin (CRESTOR) 20 mg tablet take 1 tablet at bedtime losartan (COZAAR) 50 mg tablet take 1 tablet twice daily amLODIPine (NORVASC) 5 mg tablet Take 1 tablet by mouth once daily. traZODone (DESYREL) 50 mg tablet Take 0.5-1 tablets by mouth daily at bedtime. For insomnia and depression metFORMIN ER (GLUCOPHAGE XR) 500 mg 24 hr tablet Take 1 tablet by mouth daily with breakfast. propranolol ER (INDERAL LA) 120 mg 24 hr capsule Take 1 capsule by mouth once daily. omeprazole (PRILOSEC) 40 mg capsule Take 1 capsule by mouth two times a day. fluticasone (FLONASE) 50 mcg/actuation nasal spray Use 2 Sprays in each nostril once daily as needed. ipratropium bromide (ATROVENT) 42 mcg (0.06 %) nasal spray Use 2 Sprays in the nose daily at bedtime. betamethasone dipropionate, augmented (DIPROLENE) 0.05 % cream APPLY TO HANDS ONCE DAILY AT NIGHT WHEN FLARED, COVER WITH COTTON GLOVES OVERNIGHT calcium citrate/vitamin D3 (CALCIUM CITRATE + D ORAL) Take 1 tablet by mouth once daily. ibuprofen (ADVIL) 200 mg tablet Take 400 mg by mouth two times a day. acetaminophen (TYLENOL) 325 mg cap Take 650 mg by mouth once daily. Ascorbic Acid (VITAMIN C) 1,000 mg tablet Take 1,000 mg by mouth once daily. fluticasone propionate (FLOVENT INHALATION) Inhale as instructed as needed. loratadine (CLARITIN) 10 mg tablet Take 10 mg by mouth once daily. L.acidophilus-L.rhamnosus (PROBIOTIC) 15 billion cell capsule Take 1 capsule by mouth once daily. vitamin B complex (B COMPLEX 1 ORAL) Take 1 tablet by mouth once daily. multivitamin with minerals (DAILY MULTIVITAMIN-MINERALS) tablet Take 1 tablet by mouth once daily. melatonin 5 mg tablet Take 5 mg by mouth at bedtime as needed for insomnia. simethicone (GAS-X ORAL) Take 1 Capful by mouth once daily. dicyclomine (BENTYL) 20 mg tablet Take 1 tablet by mouth once daily. ondansetron (ZOFRAN) 4 mg tablet Take 1 tablet by mouth every 8 hours as needed for nausea/vomiting. Blood-Glucose Meter 1 Device as directed. Test Three times a day. Before breakfast, lunch and before bedtime. Blood Glucose Control, Normal soln 1 Ampule as directed. blood sugar diagnostic test strip Use with blood glucose test 3 times daily, Insulin Dep? No Lancets lancets Use with blood glucose test 3 times daily. Insulin Dep? No alcohol swabs Use with blood glucose test 3 times daily. Insulin Dep? No docusate sodium (COLACE) 100 mg capsule Take 100 mg by mouth once daily. ipratropium 20 mcg-albuterol 100 mcg (COMBIVENT RESPIMAT) 20-100 mcg/actuation inhaler Inhale 1 Puff as instructed every 6 hours as needed. promethazine (PHENERGAN) 25 mg tablet Take 1 tablet by mouth every 8 hours as needed. FOR NAUSEA albuterol HFA (VENTOLIN HFA) 90 mcg/actuation inhaler Inhale 2 Puffs as instructed every 4 hours asneeded for Wheezing/Shortness of Breath. phenazopyridine (PYRIDIUM) 200 mg tablet Take 1 tablet by mouth three times a day as needed. (Patient not taking: Reported on 01/15/2024) MEDICATION, NON-DATABASE Take 1 tablet by mouth once daily. Beta Sisosterol REVIEW OF SYSTEMS Review of Systems Constitutional: Negative. Respiratory: Negative. Cardiovascular: Negative. Gastrointestinal: Negative. Genitourinary: Negative. Skin: Negative. Neurological: Negative. Psychiatric/Behavioral: Negative. HISTORIES PAST MEDICAL HISTORY Diagnosis Date Abnormal REM sleep REM dependent ALFONSO Arthritis BPH with obstruction/lower urinary tract symptoms CAD (coronary artery disease) Diabetes (HCC) Diarrhea 05/11/2005 Enthesopathy of hip region 05/11/2005 Esophageal reflux 05/11/2005 Hemorrhage of gastrointestinal tract, unspecified 05/11/2005 History of transfusion Pt thinks maybe w/ his open heart;He possibly had a transfusion IFG (impaired fasting glucose) Intestinal infection due to campylobacter 05/11/2005 Migraine without aura, without mention of intractable migraine without mention of status migrainosus 05/11/2005 Propranolol effective for prevention Motion sickness Nocturnal hypoxemia Diagnosed on PSG Primary hypertension 05/11/2005 PUD (peptic ulcer disease) 1968 conservative tx while in service Pure hypercholesterolemia 05/11/2005 Sciatica 05/11/2005 Sleep apnea APAP uses nightly;Pt repors he's a very sallow breather Thyroid disease FAMILY HISTORY Problem Relation Age of Onset Diabetes Mother Heart Father [place] Diabetes Brother Stroke Maternal Grandfather Cancer Paternal Grandfather SOCIAL HISTORY Social History Tobacco Use Smoking status: Former Packs/day: 1.50 Years: 6.00 Additional pack years: 0.00 Total pack years: 9.00 Types: Cigarettes Quit date: 09/18/1970 Years since quittin.5 Passive exposure: Never Smokeless tobacco: Never Vaping Use Vaping Use: Never used Substance Use Topics Alcohol use: Not Currently Comment: rarely Drug use: No PHYSICAL EXAMINATION General appearance: Well appearing, alert, in no acute distress, and well- hydrated, well nourished Skin: Skin color, texture, turgor normal, no suspicious rashes or lesions Respiratory:+ effort Cardiovascular: Not examined GI: Normal abdominal exam, Abdomen soft, non-tender. No masses, organomegaly Musculoskeletal: Negative Neuro: Negative Genitourinary: not examined Impression: (N40.1, N13.8) BPH with obstruction/lower urinary tract symptoms (primary encounter diagnosis) Plan: davian Thomas Jr, MD 04/09/2024 documented in this encounterCenterville06-20-2024 History of Present illness Narrative* Jack Ordoñez, PT - 03/07/2024 3:44 PM EDT Episode Visit Count: 4 Therapist That Will Accept/Oversee The Plan Of Care: Jack Ordoñez Start of Care Date: 02/08/24 Onset Date: 08/10/23 Plan of Care Certification Date: 02/08/24 Next Certification Due Date: 05/10/24 REHABILITATION AND SPORTS THERAPY PHYSICAL THERAPY TREATMENT NOTE ASSESSMENT: Tosha pSann tolerated the session with increased symptoms. He demonstrated difficulty with change in position, ambulation, and overall increased back pain. The patient will continue to benefit from ongoing skilled physical therapy for reassessment by supervising therapist. PLAN FOR NEXT VISIT: SUBJECTIVE: Patient had a terrible response to the needling plus TENS. Notes that he had worsening soreness from last Wed to Sun morning. While it has backed off some, he is still miserable. Pain: Pain Pain Level: 10 Pain Location: Low Back/Lumbar Spine - Right Description: Sharp, Burning, Stabbing Frequency: Continuous, With movement OBJECTIVE MEASURES WITH LEVEL OF FUNCTION: Pain reproduced at R L5 paraspinals TREATMENT: Therapeutic Exercise: 1: *TA bracing hooklying 3x10, 3 sec holds 2: *TA bracing in sitting 3x10, 3 sec holds Skilled Intervention: Patient was educated in proper exercise technique and purpose for exercises. Skilled judgment was used in selection of appropriate interventions. Provided written instruction for home exercise program to facilitate proper performance and compliance. Correct performance of therapeutic exercises was facilitated with verbal and visual cuing. Manual Therapy: 1: STM to R lumbar paraspinals with push to tolerance Dry Needling: (1) 50 mm needle to R L5 paraspinals with placement of needle only. (1 needle in, 1 needle out. Patient consent gained) Skilled Intervention: Manual skills to improve joint mobility, ROM, and decrease pain. Utilized anatomy knowledge of the therapist, and assessment of patient's response to intervention. Billing Therapeutic Exercise Treatment Minutes: 9 Manual TherapyTreatment Minutes: 15 Skilled Treatment Time Minutes (timed and untimed codes): 24 Total Session Time (minutes): 24 Session Start Time : 1500 Session Stop Time : 1524 Jack Ordoñez PT * Jack Ordoñez PT - 03/07/2024 3:24 PM EDT Program_ID:[id number] Access Code: [email or web address] URL: [email or web address] Date: 03-07-2024 Prepared By: Jack Ordoñez Program Notes Exercises - Hooklying Single Knee to Chest - 1 x daily - 7 x weekly - 3 sets - 3 reps - Supine Double Knee to Chest - 1 x daily - 7 x weekly - 3 sets - 3 reps - Supine Transversus Abdominis Bracing - Hands on Ground - 1 x daily - 7 x weekly - 3 sets - 10 reps - Supine March - 1 x daily - 7 x weekly - 3 sets - 10 reps - Standing Anti-Rotation Press with Anchored Resistance - 1 x daily - 7 x weekly - 3 sets - 10 reps - Seated Transversus Abdominis Bracing with PLB - 1 x daily - 7 x weekly - 3 sets - 10 reps documented in this encounterCenterville06-13-2024 History of Present illness Narrative* Jack Ordoñez PT - 02/29/2024 2:56 PM EDT Episode Visit Count: 3 Therapist That Will Accept/Oversee The Plan Of Care: Jack Ordoñez Start of Care Date: 02/08/24 Onset Date: 08/10/23 Plan of Care Certification Date: 02/08/24 Next Certification Due Date: 05/10/24 REHABILITATION AND SPORTS THERAPY PHYSICAL THERAPY TREATMENT NOTE ASSESSMENT: Tosha Spann tolerated the session with expected muscle soreness and no issues. He demonstrated difficulty with standing, walking, and heavy exertion. The patient will continue to benefit from ongoing skilled physical therapy to progress toward set goals. PLAN FOR NEXT VISIT: Assess carry over of needling plus TENS SUBJECTIVE: Patient had maybe an evening of pain relief before symptoms returned last session Pain: Pain Pain Level: 9 Pain Location: Low Back/Lumbar Spine - Right Description: Sharp, Burning Frequency: Continuous, With movement OBJECTIVE MEASURES WITH LEVEL OF FUNCTION: Tenderness to R L4-5 paraspinals TREATMENT: Manual Therapy: 1: STM to R lumbar paraspinals with push to tolerance Dry Needling: (1) 60 and 75 mm needles to R L4 and L5 paraspinals with placement of needles in clock technique. 10 Hz leads 1 and 2 1.5 V x10 min Skilled Intervention: Manual skills to improve joint mobility, ROM, and decrease pain. Utilized anatomy knowledge of the therapist, and assessment of patient's response to intervention. Billing Manual TherapyTreatment Minutes: 25 Skilled Treatment Time Minutes (timed and untimed codes): 25 Total Session Time (minutes): 25 Session Start Time : 919 Session Stop Time : 944 Jack Ordoñez PT documented in this encounterCenterville06-06-2024 History of Present illness Narrative* Jack Ordoñez PT - 02/22/2024 4:26 PM EDT Episode Visit Count: 2 Therapist That Will Accept/Oversee The Plan Of Care: Jack Ordoñez Start of Care Date: 02/08/24 Onset Date: 08/10/23 Plan of Care Certification Date: 02/08/24 Next Certification Due Date: 05/10/24 REHABILITATION AND SPORTS THERAPY PHYSICAL THERAPY TREATMENT NOTE ASSESSMENT: Tosha Spann tolerated the session with decreased symptoms and expected muscle soreness. He demonstrated improvements in tolerance for bending and tying shoes post session. The patientwill continue to benefit from ongoing skilled physical therapy to progress toward set goals. PLAN FOR NEXT VISIT: Assess carry over of dry needling, progress exercises if tolerated SUBJECTIVE: Patient has felt better doing his Keyla prone propped and propped on elbows Pain: Pain Pain Level: 9 Pain Location: Low Back/Lumbar Spine - Right Description: Sharp, Burning Frequency: Continuous, With movement OBJECTIVE MEASURES WITH LEVEL OF FUNCTION: TREATMENT: Manual Therapy: 1: STM to R lumbar paraspinals with push to tolerance Dry Needling: (1) 60 and (1) 75 mm needle to R lumbar paraspinals with light pistoning (2 needles in 2 needles out, patient consent gained) Skilled Intervention: Manual skills to improve joint mobility, ROM, and decrease pain. Utilized anatomy knowledge of the therapist, and assessment of patient's response to intervention. Self-Shelter Management: 1: Time spent reviewing imaging. Discussed rehab implications and demonstrated mechanics and various pathologies with aid of a spine model. Discussed indications and efficacy of dry needling, gainingpatients consent to perform tonight with his spinal stimulator shut off. Skilled Intervention: Skilled judgment in the selection of proper modification for activity of daily living/home management based on clinical presentation, deficits, and needs. Reviewed patient specific diagnosis in relation to activities of daily living/home management. Activity progression based on professional judgement. Billing Manual TherapyTreatment Minutes: 15 Self-Care/Home Management Treatment Minutes: 23 Skilled Treatment Time Minutes (timed and untimed codes): 38 Total Session Time (minutes): 38 Session Start Time : 1305 Session Stop Time : 1343 Jack Ordoñez PT documented in this encounterCenterville05-24-2024 History of Present illness Narrative* Jack Ordoñez, PT - 02/09/2024 8:07 AM EDT Images from the original note were not included. Episode Visit Count: 1 Therapist That Will Accept/Oversee The Plan Of Care: Jack Ordoñez Start of Care Date: 02/08/24 Onset Date: 08/10/23 Plan of Care Certification Date: 02/08/24 Next Certification Due Date: 05/10/24 Patient Identified by Name and Date of : Yes REHABILITATION AND SPORTS THERAPY PHYSICAL THERAPY EVALUATION PLAN OF CARE: Assessment: Tosha Spann presents with chief complaint of chronic LBP that interferes with bending, heavy exertion, lifting, physical activities . He presents with impairments in ADL's, overall function, range of motion, strength, symptom management, and tissue tenderness. PROMIS (Patient-Reported Outcomes Measurement Information System) scores were reviewed and identified as a rehabilitation concern. Prognosis for therapy is Fair due to: clinical presentation, multiple co- morbidities, chronic nature of impairments, limited tolerance to activity . He will benefit from skilled therapy services to meet the goals established for this plan of care as noted below. Classification Pain Mechanism Classification: Neuropathic Low Back Pain Classification: Movement Control Goals for Episode of Care: created on 02/08/24 through 04/10/24 Independent in home exercises. Patient will decrease pain rating by 2 points to meet minimal clinical important difference for numeric pain rating scale. Restore pain-free lumbar ROM to WNL to allow for improved tolerance for bending and lifting 10# andto tie shoes. Stand / Walk as needed for ADLs and light recreation without pain/symptoms. Maintain proper sitting posture throughout session Patient will increase strength of trunk/core to 5/5 to allow for improve ability to complete ADLs. Patient Goals: decrease pain and improve function Planned Interventions, Frequency, and Duration: Current Frequency: 1x/week Duration: 8 weeks Total Number of Visits Planned: 8 Planned Treatment Interventions: Therapeutic exercise (87093), Neuromuscular re- education (55562), Manual therapy (49223), Therapeutic activities (63526), Self- shelter management (15806), Patient/Family/Caregiver Education, Body Mechanics Training PLAN FOR NEXT VISIT: January needle R quad. Traction and possible needling for lumbar spine Patient demonstrates good understanding of plan of care and treatment. The above goals and plan of care were discussed and agreed upon by patient/family. SUBJECTIVE: Chronic LBP with R sided sciatica. Notes a spinal stimulator for the L side of spine that helped tosignificantly improve this pain. Notes difficulty with bending, and especially bending and lifting.He gets a strong catch in the back that recreates symptoms and can send radicular pain down the RLE. Patient had a fall last June and had severe bruising in his RLE quad (entire length of leg) andhas not been able to shake the quad pain since then. Pain is worse just above the knee, but can radiate into the entire quad. Patient Goals: decrease pain and improve function Functional Limitations: bending, heavy exertion, lifting, physical activities Prior Level of Function: Independent without limitations Intake Information: Prescription present Red Flags Vertebral Fracture Red Flags: Age >70 Vertebral Fracture Clinical Reasoning: No identified risk factors Abdominal Aortic Aneurysm Red Flags: Age >60 Abdominal Aortic Aneurysm Clinical Reasoning: No identified risk factors. Cancer Clinical Reasoning: No identified risk factors. Infection Clinical Reasoning: No identified risk factors. Cauda Equina Syndrome Clinical Reasoning: No identified risk factors. Red Flags - Cervical Cancer Clinical Reasoning: No identified risk factors. Infection Clinical Reasoning: No identified risk factors. Pain: Pain Pain Level: 9 Pain Location: Low Back/Lumbar Spine - Right, Leg - Right Description: Sharp, Burning, Numbness, Shooting, Spasm, Tingling Frequency: Continuous, With movement Post Treatment Pain Post Treatment Pain Level: No Change PROMIS Scales 02/08/2024 Higher is Better Phys Func - Score 38 (moderate dysfunction) Phys Func - Percentile 12 Self-Eff Symptom - Score 41 (Average) Self-Eff Symptom - Percentile 18 T-scores: mean of general population = 50. 5 points is clinically meaningfully difference Percentiles provide an indication of how the patient's score ranks in relation to the general population. Higher percentile rankings indicate better function/quality of life. 50th percentile is the average of the general population and indicates half of respondents had a worse score. OBJECTIVE MEASURES WITH LEVEL OF FUNCTION: Lumbar Spine AROM Lumbar Flexion: Major limitation Lumbar Extension: Major limitation Lumbar R Side-Bend: Moderate limitation Lumbar L Side-Bend: Moderate limitation Lumbar R Rotation: Minimal limitation Lumbar L Rotation: Minimal limitation Repeated Test Movements - Lumbar RFIS - Symptoms During: increases RFIS - Symptoms After: worse HENRIK - Symptoms During: decreases HENRIK - Symptoms After: better RFIL - Symptoms During: decreases RFIL - Symptoms After: better LE Strength Trunk Strength: 4-/5 R LE Strength: 4+/5 grossly L LE Strength: 4+/5 grossly Special Tests - Hip and Spine Hip and Spine Special Tests: SLR Test SLR Test: Right Positive, Left Positive Education: Education Learning/educational needs: Home exercise program, Plan of Care, Changes in Plan of Care, Posture, Body Mechanics TREATMENT: PT Treatment Interventions: Therapeutic Exercise, Self-Shelter Management Evaluation Therapeutic Exercise: 1: *SKC 3x30 sec/side 2: *DKC 3x30 sec 3: *TA bracing in supine 3x10 4: *TA bracing plus marches 3x10 5: *BTB pallof press 3x10/side Skilled Intervention: Patient was educated in proper exercise technique and purpose for exercises. Skilled judgment was used in selection of appropriate interventions. Provided written instruction for home exercise program to facilitate proper performance and compliance. Correct performance of therapeutic exercises was facilitated with verbal, visual, and tactile cuing. Self-Shelter Management: 1: Discussed dry needling, indications and contraindications for use, plan of care and rationale for exercises Skilled Intervention: Skilled judgment in the selection of proper modification for activity of daily living/home management based on clinical presentation, deficits, and needs. Reviewed patient specific diagnosis in relation to activities of daily living/home management. Activity progression based on professional judgement. Billing * Evaluation Moderate Complexity: 1 Unit Therapeutic Exercise Treatment Minutes: 18 Self-Care/Home Management Treatment Minutes: 10 Skilled Treatment Time Minutes (timed and untimed codes): 55 Total Session Time (minutes): 55 Session Start Time : 1000 Session Stop Time : 1055 Jack Ordoñez PT * Jack Ordoñez PT - 02/08/2024 10:45 AM EDT Program_ID:[id number] Access Code: [email or web address] URL: [email or web address] Date: 02-08-2024 Prepared By: Jack Ordoñez Program Notes Exercises - Hooklying Single Knee to Chest - 1 x daily - 7 x weekly - 3 sets - 3 reps - Supine Double Knee to Chest - 1 x daily - 7 x weekly - 3 sets - 3 reps - Supine Transversus Abdominis Bracing - Hands on Ground - 1 x daily - 7 x weekly - 3 sets - 10 reps - Supine March - 1 x daily - 7 x weekly - 3 sets - 10 reps - Standing Anti-Rotation Press with Anchored Resistance - 1 x daily - 7 x weekly - 3 sets - 10 reps documented in this encounterCenterville05-17-2024 Telephone encounter Note * Telephone Encounter - Cally Deal LPN - 02/02/2024 10:08 AM EDT Patient's request for medication is as follows: Requested Prescriptions Pending Prescriptions Disp Refills rosuvastatin (CRESTOR) 20 mg tablet [Pharmacy Med Name: ROSUVASTATIN CALCIUM 20 MG Tablet] 90 tablet 3 Sig: take 1 tablet at bedtime Last seen in [place] 01/15/2024. Next visit in [place] 07/15/2024. Prescription(s) as above. Please process accordingly. Cally Deal LPN [place]05-17-2024 Miscellaneous Notes* Telephone Encounter - Cally Deal LPN - 02/02/2024 10:08 AM EDT Patient's request for medication is as follows: Requested Prescriptions Pending Prescriptions Disp Refills rosuvastatin (CRESTOR) 20 mg tablet [Pharmacy Med Name: ROSUVASTATIN CALCIUM 20 MG Tablet] 90 tablet 3 Sig: take 1 tablet at bedtime Last seen in [place] 01/15/2024. Next visit in [place] 07/15/2024. Prescription(s) as above. Please process accordingly. Cally Deal LPN documented in this encounterCenterville05-06-2024 History of Present illness Narrative* [place], Nevin D, MD - 01/22/2024 11:06 AM EDT This note was created using Ecorithmriter. Subjective Tosha Spann is a 78 year old male. Patient presents with: F/U 6 months SUBJECTIVE: Tosha Spann is a 78 year old year old gentleman here today for 6 month follow up appointment for review of medical conditions. APAP doing okay. Reviewed Sleep study (PSG) that was done last year not showing significant issues with ALFONSO or hypoxemia. Getting supplies without issues with insurance coverage now through [employer].. Primarily for desaturating at night since did not have significant ALFONSO. Reviewed that initially started due to nocturnal hypoxemia since APAP not as noisy as O2 concentrator. Current APAP device [facility] 2017 so could be updated at any time if any problems develop. Still taking trazodone and melatonin. Still up by 2AM and sleeps on and off after that. Gets about 5 hours straight sleep befor e2AM. Not needing naps. Up by 7AM. BPs better since added amlodipine back. Dr. Estevez. Back pain and leg pain. Did go back to [facility] 8 weeks ago. Did PT and follow up. MRI done. Lumbar canal stenosis. Told not surgical candidate. Leg pain since had fallen. PT done. Also tried to help back too. Mackenzies being done--not really helping. Constant pain. Hard to stand up. Hurts to tie shoe and get back up. See assessment and plan for other issues addressed. PAST MEDICAL HISTORY Diagnosis Date Abnormal REM sleep REM dependent ALFONSO Arthritis BPH with obstruction/lower urinary tract symptoms CAD (coronary artery disease) Diabetes (HCC) Diarrhea 05/11/2005 Enthesopathy of hip region 05/11/2005 Esophageal reflux 05/11/2005 Hemorrhage of gastrointestinal tract, unspecified 05/11/2005 History of transfusion Pt thinks maybe w/ his open heart;He possibly had a transfusion IFG (impaired fasting glucose) Intestinal infection due to campylobacter 05/11/2005 Migraine without aura, without mention of intractable migraine without mention of status migrainosus 05/11/2005 Propranolol effective for prevention Motion sickness Nocturnal hypoxemia Diagnosed on PSG Primary hypertension 05/11/2005 PUD (peptic ulcer disease) 1968 conservative tx while in service Pure hypercholesterolemia 05/11/2005 Sciatica 05/11/2005 Sleep apnea APAP uses nightly;Pt repors he's a very sallow breather Thyroid disease Current Outpatient Medications Medication Sig losartan (COZAAR) 50 mg tablet take 1 tablet twice daily amLODIPine (NORVASC) 5 mg tablet Take 1 tablet by mouth once daily. traZODone (DESYREL) 50 mg tablet Take 0.5-1 tablets by mouth daily at bedtime. For insomnia and depression metFORMIN ER (GLUCOPHAGE XR) 500 mg 24 hr tablet Take 1 tablet by mouth daily with breakfast. propranolol ER (INDERAL LA) 120 mg 24 hr capsule Take 1 capsule by mouth once daily. omeprazole (PRILOSEC) 40 mg capsule Take 1 capsule by mouth two times a day. fluticasone (FLONASE) 50 mcg/actuation nasal spray Use 2 Sprays in each nostril once daily as needed. ipratropium bromide (ATROVENT) 42 mcg (0.06 %) nasal spray Use 2 Sprays in the nose daily at bedtime. betamethasone dipropionate, augmented (DIPROLENE) 0.05 % cream APPLY TO HANDS ONCE DAILY AT NIGHT WHEN FLARED, COVER WITH COTTON GLOVES OVERNIGHT calcium citrate/vitamin D3 (CALCIUM CITRATE + D ORAL) Take 1 tablet by mouth once daily. ibuprofen (ADVIL) 200 mg tablet Take 400 mg by mouth two times a day. acetaminophen (TYLENOL) 325 mg cap Take 650 mg by mouth once daily. Ascorbic Acid (VITAMIN C) 1,000 mg tablet Take 1,000 mg by mouth once daily. fluticasone propionate (FLOVENT INHALATION) Inhale as instructed as needed. loratadine (CLARITIN) 10 mg tablet Take 10 mg by mouth once daily. L.acidophilus-L.rhamnosus (PROBIOTIC) 15 billion cell capsule Take 1 capsule by mouth once daily. vitamin B complex (B COMPLEX 1 ORAL) Take 1 tablet by mouth once daily. multivitamin with minerals (DAILY MULTIVITAMIN-MINERALS) tablet Take 1 tablet by mouth once daily. melatonin 5 mg tablet Take 5 mg by mouth at bedtime as needed for insomnia. simethicone (GAS-X ORAL) Take 1 Capful by mouth once daily. dicyclomine (BENTYL) 20 mg tablet Take 1 tablet by mouth once daily. rosuvastatin (CRESTOR) 20 mg tablet Take 1 tablet by mouth daily at bedtime. ondansetron (ZOFRAN) 4 mg tablet Take 1 tablet by mouth every 8 hours as needed for nausea/vomiting. Blood-Glucose Meter 1 Device as directed. Test Three times a day. Before breakfast, lunch and before bedtime. Blood Glucose Control, Normal soln 1 Ampule as directed. blood sugar diagnostic test strip Use with blood glucose test 3 times daily, Insulin Dep? No Lancets lancets Use with blood glucose test 3 times daily. Insulin Dep? No alcohol swabs Use with blood glucose test 3 times daily. Insulin Dep? No docusate sodium (COLACE) 100 mg capsule Take 100 mg by mouth once daily. ipratropium 20 mcg-albuterol 100 mcg (COMBIVENT RESPIMAT) 20-100 mcg/actuation inhaler Inhale 1 Puff as instructed every 6 hours as needed. promethazine (PHENERGAN) 25 mg tablet Take 1 tablet by mouth every 8 hours as needed. FOR NAUSEA albuterol HFA (VENTOLIN HFA) 90 mcg/actuation inhaler Inhale 2 Puffs as instructed every 4 hours asneeded for Wheezing/Shortness of Breath. phenazopyridine (PYRIDIUM) 200 mg tablet Take 1 tablet by mouth three times a day as needed. (Patient not taking: Reported on 01/15/2024) MEDICATION, NON-DATABASE Take 1 tablet by mouth once daily. Beta Sisosterol No current facility-administered medications for this visit. Review of Systems Objective BP 153/79 Pulse 61 Temp 36.2 C (97.2 F) Resp 18 Wt 76.7 kg (169 lb) SpO2 98% BMI 24.96 kg/m Physical Exam Vitals reviewed. Constitutional: Appearance: Normal appearance. Eyes: Conjunctiva/sclera: Conjunctivae normal. Cardiovascular: Rate and Rhythm: Normal rate and regular rhythm. Heart sounds: Normal heart sounds. Pulmonary: Effort: Pulmonary effort is normal. Breath sounds: Normal breath sounds. Musculoskeletal: Right lower leg: No edema. Left lower leg: No edema. Comments: Tight muscles right paravertebrals Skin: General: Skin is warm and dry. Neurological: General: No focal deficit present. Mental Status: He is alert and oriented to person, place, and time. Psychiatric: Mood and Affect: Mood normal. Behavior: Behavior normal. Thought Content: Thought content normal. Judgment: Judgment normal. Last labs reviewed. Assessment and Plan Encounter Diagnosis ICD-10-CM 1. Spinal stenosis of lumbar region, unspecified whether neurogenic claudication present M48.061 CONSULT TO PHYSICAL THERAPY Was told not a surgical candidate. Will try PT and see if dry needling an option.Further referrals as indicated. 2. Right leg pain M79.604 CONSULT TO PHYSICAL THERAPY History of bruising from a fall; also has lumbar canal stenosis. See if dry needling can help throught PT 3. Type 2 diabetes mellitus without complication, without long-term current use of insulin (HCC) E11.9 HEMOGLOBIN A1C Well controlled. Continue present management 4. ALFONSO (obstructive sleep apnea) G47.33 on APAP. Uses nightly and benefits from use.Primarily for nocturnal hypoxemia.Continue present management. 5. Essential hypertension I10 COMPREHENSIVE METABOLIC PANEL COMPLETE BLOOD COUNT Has been controlled better since started on amlodipine.Higher today--maybe from recent increased pain. Adjust meds if BP control not getting to goal 6. Mixed hyperlipidemia E78.2 LIPID PANEL BASIC Follow up labs before next appointment, Continue Crestor. Above issues addressed with patient. Patient involved in shared decision making for management of medical issues. History and medications reviewed. Epic updated as needed Refills and/or prescriptions taken care of and meds adjusted as indicated after reviewed history, exam and labs. Health Maintenance reviewed. Updated record and/or ordered tests as recorded. Encouraged on efforts at healthy diet and regular exercise and adequate sleep. Nevin Marquez MD documented in this encounterCenterville05-03-2024 Telephone encounter Note * Telephone Encounter - Cally Deal LPN - 01/19/2024 7:34 AM EDT Patient's request for medication is as follows: Requested Prescriptions Pending Prescriptions Disp Refills losartan (COZAAR) 50 mg tablet [Pharmacy Med Name: LOSARTAN POTASSIUM 50 MG Tablet] 180 tablet 3 Sig: take 1 tablet twice daily Last seen in [place] 01/15/2024. Next visit 07/15/2024. Prescription(s) as above. Please process accordingly. Cally Deal LPN [place]05-03-2024 Miscellaneous Notes* Telephone Encounter - Cally Deal LPN - 01/19/2024 7:34 AM EDT Patient's request for medication is as follows: Requested Prescriptions Pending Prescriptions Disp Refills losartan (COZAAR) 50 mg tablet [Pharmacy Med Name: LOSARTAN POTASSIUM 50 MG Tablet] 180 tablet 3 Sig: take 1 tablet twice daily Last seen in [place] 01/15/2024. Next visit 07/15/2024. Prescription(s) as above. Please process accordingly. Cally Deal LPN documented in this encounterCenterville04-29-2024 History of Present illness Narrative* Emiliana Estevez MD - 01/15/2024 1:09 PM EDT Images from the original note were not included. Emiliana Estevez MD Interventional Cardiology [address] [place] [address] [phone] Chief Complaint Patient presents with: Follow Up HISTORY OF PRESENT ILLNESS: Mr. Spann is a 78 year old male seen in my office today for assessment and evaluation prior history of three-vessel coronary artery disease with bypass surgery consisted of a JEFF to the LAD vein graft to the PDA patient have hypertensive heart disease recent blood pressure log shows elevated blood pressure continue to be asymptomatic denies chest pain or shortness of breath Cardiac Risk Factors age (male over 45, female over 55), hyperlipidemia, hypertension, family history of CAD PAST MEDICAL HISTORY Diagnosis Date Abnormal REM sleep REM dependent ALFONSO Arthritis BPH with obstruction/lower urinary tract symptoms CAD (coronary artery disease) Diabetes (HCC) Diarrhea 05/11/2005 Enthesopathy of hip region 05/11/2005 Esophageal reflux 05/11/2005 Hemorrhage of gastrointestinal tract, unspecified 05/11/2005 History of transfusion Pt thinks maybe w/ his open heart;He possibly had a transfusion IFG (impaired fasting glucose) Intestinal infection due to campylobacter 05/11/2005 Migraine without aura, without mention of intractable migraine without mention of status migrainosus 05/11/2005 Propranolol effective for prevention Motion sickness Nocturnal hypoxemia Diagnosed on PSG Primary hypertension 05/11/2005 PUD (peptic ulcer disease) 1968 conservative tx while in service Pure hypercholesterolemia 05/11/2005 Sciatica 05/11/2005 Sleep apnea APAP uses nightly;Pt repors he's a very sallow breather Thyroid disease PAST SURGICAL HISTORY Procedure Laterality Date APPENDECTOMY CABG (3) VEIN GRAFTS & ARTERIAL GRAFT(S) 10/25/2021 CHOLECYSTECTOMY COLONOSCOPY FLX DX W/COLLJ SPEC WHEN PFRMD 01/29/2001 Colonoscopy COLONOSCOPY FLX DX W/COLLJ SPEC WHEN PFRMD 03/26/2018 Colonoscopy COLONOSCOPY W/BIOPSY SINGLE/MULTIPLE 05/16/2008 ESOPHAGOGASTRODUODENOSCOPY TRANSORAL DIAGNOSTIC 03/26/2018 EGD ESOPHAGOSCOPY FLEX BALLOON DILAT <30 MM DIAM 04/12/2006 Esophageal dilatation PAST SURGICAL HISTORY OF 1999 hemorrhoidectomy PAST SURGICAL HISTORY OF left footsurgery PAST SURGICAL HISTORY OF 1990 Brad fundoplication PAST SURGICAL HISTORY OF 10/2006 re-do fundoplication Dr Felix PAST SURGICAL HISTORY OF 03/07/2022 Spinal cord stimulator placement RPR 1ST INGUN HRNA AGE 7 YRS/> REDUCIBLE age 17 Hernia repair, inguinal, left FAMILY HISTORY Problem Relation Age of Onset Diabetes Mother Heart Father [place] Diabetes Brother Stroke Maternal Grandfather Cancer Paternal Grandfather Social History Tobacco Use Smoking status: Former Packs/day: 1.50 Years: 6.00 Additional pack years: 0.00 Total pack years: 9.00 Types: Cigarettes Quit date: 09/18/1970 Years since quittin.3 Passive exposure: Never Smokeless tobacco: Never Vaping Use Vaping Use: Never used Substance Use Topics Alcohol use: Not Currently Comment: rarely Drug use: No ALLERGIES Allergen Reactions Flomax [Tamsulosin * Hives Percocet [Oxycodone* GI Upset Pt gets severe Nausea;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 Barium Sulfate Hives, Itching Pt has had barium multiple times in the past with no reaction. Only reaction one time Carafate [Sucralfat* GI Upset worsening of chest pain and IBS symptoms Penicillins unknown -childhood Erythromycin GI Upset only PO is problematic Medications: Current Outpatient Medications Medication Sig Dispense Refill traZODone (DESYREL) 50 mg tablet Take 0.5-1 tablets by mouth daily at bedtime. For insomnia and depression 90 tablet 0 losartan (COZAAR) 50 mg tablet take 1 tablet twice daily 180 tablet 0 metFORMIN ER (GLUCOPHAGE XR) 500 mg 24 hr tablet Take 1 tablet by mouth daily with breakfast. 90 tablet 3 propranolol ER (INDERAL LA) 120 mg 24 hr capsule Take 1 capsule by mouth once daily. 90 capsule 3 omeprazole (PRILOSEC) 40 mg capsule Take 1 capsule by mouth two times a day. 180 capsule 3 fluticasone (FLONASE) 50 mcg/actuation nasal spray Use 2 Sprays in each nostril once daily as needed. 3 Each 3 meclizine (ANTIVERT) 25 mg tab TAKE 2 TABLETS BY MOUTH TWICE DAILY NEEDED FOR VERTIGO ipratropium bromide (ATROVENT) 42 mcg (0.06 %) nasal spray Use 2 Sprays in the nose daily at bedtime. betamethasone dipropionate, augmented (DIPROLENE) 0.05 % cream APPLY TO HANDS ONCE DAILY AT NIGHT WHEN FLARED, COVER WITH COTTON GLOVES OVERNIGHT calcium citrate/vitamin D3 (CALCIUM CITRATE + D ORAL) Take 1 tablet by mouth once daily. ibuprofen (ADVIL) 200 mg tablet Take 400 mg by mouth two times a day. acetaminophen (TYLENOL) 325 mg cap Take 650 mg by mouth once daily. Ascorbic Acid (VITAMIN C) 1,000 mg tablet Take 1,000 mg by mouth once daily. fluticasone propionate (FLOVENT INHALATION) Inhale as instructed as needed. loratadine (CLARITIN) 10 mg tablet Take 10 mg by mouth once daily. L.acidophilus-L.rhamnosus (PROBIOTIC) 15 billion cell capsule Take 1 capsule by mouth once daily. vitamin B complex (B COMPLEX 1 ORAL) Take 1 tablet by mouth once daily. multivitamin with minerals (DAILY MULTIVITAMIN-MINERALS) tablet Take 1 tablet by mouth once daily. melatonin 5 mg tablet Take 5 mg by mouth at bedtime as needed for insomnia. simethicone (GAS-X ORAL) Take 1 Capful by mouth once daily. dicyclomine (BENTYL) 20 mg tablet Take 1 tablet by mouth once daily. 90 tablet 3 rosuvastatin (CRESTOR) 20 mg tablet Take 1 tablet by mouth daily at bedtime. 90 tablet 3 ondansetron (ZOFRAN) 4 mg tablet Take 1 tablet by mouth every 8 hours as needed for nausea/vomiting. 30 tablet 3 Blood-Glucose Meter 1 Device as directed. Test Three times a day. Before breakfast, lunch and before bedtime. 1 Each 0 Blood Glucose Control, Normal soln 1 Ampule as directed. 1 Each 0 blood sugar diagnostic test strip Use with blood glucose test 3 times daily, Insulin Dep? No 300 Strip 5 Lancets lancets Use with blood glucose test 3 times daily. Insulin Dep? No 300 Each 5 alcohol swabs Use with blood glucose test 3 times daily. Insulin Dep? No 300 Each 5 docusate sodium (COLACE) 100 mg capsule Take 100 mg by mouth once daily. ipratropium 20 mcg-albuterol 100 mcg (COMBIVENT RESPIMAT) 20-100 mcg/actuation inhaler Inhale 1 Puff as instructed every 6 hours as needed. 4 g 11 promethazine (PHENERGAN) 25 mg tablet Take 1 tablet by mouth every 8 hours as needed. FOR NAUSEA 10tablet 1 albuterol HFA (VENTOLIN HFA) 90 mcg/actuation inhaler Inhale 2 Puffs as instructed every 4 hours asneeded for Wheezing/Shortness of Breath. 1 Inhaler 3 amLODIPine (NORVASC) 5 mg tablet Take 1 tablet by mouth once daily. 90 tablet 3 phenazopyridine (PYRIDIUM) 200 mg tablet Take 1 tablet by mouth three times a day as needed. (Patient not taking: Reported on 01/15/2024) 9 tablet 0 Cranberry 500 mg cap Take 1 capsule by mouth once daily. With vitamin C (Patient not taking: Reported on 01/15/2024) MEDICATION, NON-DATABASE Take 1 tablet by mouth once daily. Beta Sisosterol finasteride (PROSCAR) 5 mg tablet Take 1 tablet by mouth once daily. (Patient not taking: Reported on 01/15/2024) 90 tablet 3 aspirin 81 mg chewable tablet Take 1 tablet by mouth once daily. 30 tablet 0 No current facility-administered medications for this visit. Review of Systems Constitutional: Negative for chills, diaphoresis, fever, malaise/fatigue and weight loss. HENT: Negative for congestion, ear discharge, ear pain, hearing loss, nosebleeds, sinus pain, sore throat and tinnitus. Eyes: Negative for blurred vision, double vision, photophobia, pain, discharge and redness. Respiratory: Negative for cough, hemoptysis, sputum production, shortness of breath, wheezing and stridor. Cardiovascular: Negative for chest pain, palpitations, orthopnea, claudication, leg swelling and PND. Gastrointestinal: Negative for abdominal pain, blood in stool, constipation, diarrhea, heartburn, melena, nausea and vomiting. Genitourinary: Negative for dysuria, flank pain, frequency, hematuria and urgency. Musculoskeletal: Negative for back pain, falls, joint pain, myalgias and neck pain. Skin: Negative for itching and rash. Neurological: Negative for dizziness, tingling, tremors, sensory change, speech change, focal weakness, seizures, loss of consciousness, weakness and headaches. Endo/Heme/Allergies: Negative for environmental allergies and polydipsia. Does not bruise/bleed easily. Psychiatric/Behavioral: Negative for depression, hallucinations, memory loss, substance abuse and suicidal ideas. The patient is not nervous/anxious and does not have insomnia. Physical Examination: Vitals:BP 173/91 Pulse 68 Ht 5' 9 (1.75m) Wt 169 lb 6.4 oz (76.8kg) SpO2 99% BMI 25.00 kg/(m^2). BP w/Orthostatic Vitals Date and Time Orthostatic BP Orthostatic Pulse BP Pulse BP Position BP Site BP Cuff Size 01/15/24 1121 -- -- 173/91 68 -- -- -- Last 2 Encounter Wt Readings: Date: Wt: 01/15/2024 76.8 kg (169 lb 6.4 oz) 10/10/2023 77.6 kg (171 lb) Physical Exam Constitutional: General: He is not in acute distress. Appearance: He is not diaphoretic. HENT: Head: Normocephalic and atraumatic. Right Ear: External ear normal. Left Ear: External ear normal. Nose: Nose normal. Mouth/Throat: Pharynx: Oropharynx is clear. Eyes: General: Right eye: No discharge. Left eye: No discharge. Conjunctiva/sclera: Conjunctivae normal. Pupils: Pupils are equal, round, and reactive to light. Cardiovascular: Rate and Rhythm: Normal rate and regular rhythm. Heart sounds: Normal heart sounds, S1 normal and S2 normal. No murmur heard. No friction rub. No gallop. No S3 or S4 sounds. Pulmonary: Effort: Pulmonary effort is normal. No respiratory distress. Breath sounds: Normal breath sounds. No wheezing or rales. Chest: Chest wall: No tenderness. Abdominal: General: Abdomen is flat. Musculoskeletal: General: Normal range of motion. Cervical back: Normal range of motion and neck supple. Skin: General: Skin is warm and dry. Neurological: Mental Status: He is alert and oriented to person, place, and time. Psychiatric: Mood and Affect: Mood normal. Behavior: Behavior normal. Thought Content: Thought content normal. Judgment: Judgment normal. Pertinent Labs: CBC: Hemoglobin (g/dL) Date Value 08/23/2023 13.4 08/11/2021 12.9 Hematocrit (%) Date Value 08/23/2023 40.0 08/11/2021 39.5 WBC (k/uL) Date Value 08/23/2023 3.68 08/11/2021 4.26 Platelet Count (k/uL) Date Value 08/23/2023 247 08/11/2021 280 BMP: Glucose (mg/dL) Date Value 08/23/2023 96 08/11/2021 102 Potassium (mmol/L) Date Value 08/23/2023 4.2 08/11/2021 4.2 Sodium (mmol/L) Date Value 08/23/2023 136 08/11/2021 140 Chloride (mmol/L) Date Value 08/23/2023 99 08/11/2021 101 CO2 (mmol/L) Date Value 08/23/2023 28 08/11/2021 29 Creatinine (mg/dL) Date Value 08/23/2023 0.88 08/11/2021 1.07 BUN (mg/dL) Date Value 08/23/2023 16 08/11/2021 22 Anion Gap (mmol/L) Date Value 08/23/2023 9 08/11/2021 10 Calcium (mg/dL) Date Value 08/11/2021 10.0 Calcium, Total (mg/dL) Date Value 08/23/2023 10.0 INR: Lipid Profile: Cholesterol, Total Date Value Ref Range Status 11/17/2022 136 <200 mg/dL Final Comment: <200 mg/dL, Desirable 200-239 mg/dL, Borderline high >239 mg/dL, High HDL Cholesterol Date Value Ref Range Status 11/17/2022 57 >39 mg/dL Final Comment: 40-59 mg/dL, Acceptable >59 mg/dL, High: Negative risk factor for coronary heart disease <40 mg/dL, Low: Positive risk factor for coronary heart disease LDL Cholesterol Date Value Ref Range Status 11/17/2022 62 <100 mg/dL Final Comment: <100 mg/dL, Optimal 100-129 mg/dL, Near optimal/above optimal 130-159 mg/dL, Borderline high 160-189 mg/dL, High >189 mg/dL, Very high Secondary prevention optimal LDL Cholesterol levels are recommended to be < 70 mg/dL Triglyceride Date Value Ref Range Status 11/17/2022 84 <150 mg/dL Final Comment: <150 mg/dL, Normal 150-199 mg/dL, Borderline high 200-499 mg/dL, High >499 mg/dL, Very high Hemoglobin A1C: No results found for: HGBA1C TSH: No results found for: TSHREFL Prior Cardiac Testing EKG Assessment and Plan: 78 years old gentleman with prior history of coronary artery disease and bypass surgery hypertensive heart disease ASSESSMENT/PLAN: 1. Ascending aorta dilatation (HCC) - ICD9: 447.71, ICD10: I77.810 (primary diagnosis) Continue monitoring 2. SVT (supraventricular tachycardia) (HCC) - ICD9: 427.89, ICD10: I47.10 Stable on medical therapy 3. Essential hypertension - ICD9: 401.9, ICD10: I10 - Uncontrolled - Start amlodipine - Recommend home blood pressure monitoring, to bring results to next visit - Encouraged sodium restriction, DASH or Mediterranean diet - Recommend regular aerobic exercise 4. Mixed hyperlipidemia - ICD9: 272.2, ICD10: E78.2 - Controlled - Continue current medications - Counseled on healthy diet and regular exercise 5. S/P CABG x 3 - ICD9: V45.81, ICD10: Z95.1 Stable with no angina Emiliana Estevez MD Follow up plannin MONTHS Electronically signed by Emiliana Estevez MD on January 15, 2024, 1:09 PM The above note was partially created using a dictation recognition software. A reasonable attempt has been made to correct any errors. documented in this encounterCenterville04-26-2024 Telephone encounter Note * Telephone Encounter - Raina Hebert LPN - 01/12/2024 8:00 AM EDT Patient has been identified by name and date of : Yes, Patient phones for refill(s): Requested Prescriptions Pending Prescriptions Disp Refills traZODone (DESYREL) 50 mg tablet 90 tablet 0 Sig: Take 0.5-1 tablets by mouth daily at bedtime. For insomnia and depression Date of last office visit in primary care: 08/22/2023 Date of next office visit in primary care: 01/22/2024 Please advise. Thank you. Raina Hebert LPN. [place]04-26-2024 Miscellaneous Notes* Telephone Encounter - Raina Hebert LPN - 01/12/2024 8:00 AM EDT Patient has been identified by name and date of : Yes, Patient phones for refill(s): Requested Prescriptions Pending Prescriptions Disp Refills traZODone (DESYREL) 50 mg tablet 90 tablet 0 Sig: Take 0.5-1 tablets by mouth daily at bedtime. For insomnia and depression Date of last office visit in primary care: 08/22/2023 Date of next office visit in primary care: 01/22/2024 Please advise. Thank you. Raina Hebert LPN. documented in this encounterCenterville04-25-2024 History of Present illness Narrative* Cortez Hyman AUD - 01/11/2024 10:30 AM EDT Head and Neck [place] HEARING AID CHECK Name: Tosha Spann CCF#: [id number] Date of Service: 01/11/2024 Date of : 1945 Age: [age] year old DEVICE INFORMATION RIGHT: Audeo P70-RT SN: [id number] Salvage Engineering Technician/Dome: 1M/Large Power LEFT: Audeo P70-RT SN: [id number] Salvage Engineering Technician/Dome: 1M/Large Power Fitting Date: 06/11/2020 Repair Warranty Expiration Date: 08/29/2024 Loss/Damage Expiration Date: 08/29/2024 Fitting Real Estate Director: Craig Chau, JIMMY/Calos Boykin Traps: Romel (disk) Retention: Yes Remote Support Activated: No Phone Connectivity: Yes Tl Connectivity: Yes SUBJECTIVE ASSESSMENT Tosha Spann, a 78 year old male, was seen today for a hearing aid check of the above devices. DEVICE CHECK His repaired devices were fully programmed and checked for him. Device(s) were returned to patient who reported satisfaction with sound quality. PROGRAMMING The device(s) were programmed accordingly to address the outcome measures and patient's comments. Fitting Formula: Adaptive Phonak Digital 2.0 Acclimatization: 100% Volume Control: Yes Feedback Principal System Software Engineer: Completed Data Logging: Yes Additional programming included: No programming needed today. Hearing Aid Programs P1 AutoSense OS 4 P2 Phone via T-OurStory + Jaison Patient was satisfied with the sound quality and fit of the device(s) today. COUNSELING Device counseling was provided covering the following points: connecting smart phone / foil cutter apps Patient counseling was provided addressing the following points: use/wear time realistic expectations and need to return for fine-tuning communication strategies to optimize hearing aid performance FINANCIAL COMPONENT Patient was not charged for today's visit; His devices were under warranty. (Treatment in progress). The loaner devices were returned in good condition. RECOMMENDATIONS * Use of hearing devices during all waking hours except when activities preclude device safety. * Schedule a hearing aid check annually or sooner if concerns arise. * Return for re-evaluation as medically indicated or sooner if change is noted. Craig Chau, JIMMY-Darlin Ramírez, Audiology Student documented in this encounterCenterville04-24-2024 Miscellaneous Notes* Telephone Encounter - Raina Hebert LPN - 01/10/2024 4:32 PM EDT PATIENT NOTIFIED OF SAME. He states that he had been taking a electrolytes supplement with 1000 mg sodium due to severe muscle cramps. Had since stopped the supplements but cramps have returned. * Telephone Encounter - Krystal Andino APRN.CNP - 01/10/2024 4:15 PM EDT Noted, he should take medications as prescribed daily, limit salt, avoid alcohol and caffeine. HE should check blood pressure daily and write that down and take it with him to his appointment with Dr. Estevez on 01/14. * Telephone Encounter - Raina Hebert LPN - 01/10/2024 4:11 PM EDT Spoke with patient and he states that his blood pressures have been running about the same. 01/09/24 153/86 01/08/24 163/[address] Estevez on 01/15/24. * Telephone Encounter - Krystal Andino APRN.CNP - 01/10/2024 8:57 AM EDT Please call patient to get updated bp readings for the last week. Thanks * Telephone Encounter - Radha Maldonado MA - 01/04/2024 2:45 PM EDT Pt plans to continue monitoring daily. Radha Maldonado MA * Telephone Encounter - Sharda Hanson LPN - 01/04/2024 2:30 PM EDT Images from the original note were not included. Emiliana Estevez MD You 20 minutes ago (2:09 PM) Need BP log for few days herb * Telephone Encounter - Radha Maldonado MA - 01/04/2024 12:45 PM EDT Pt had not been taking his BP readings regularly until recently when he had a high reading at [facility]. He is feeling ok. Is just a little concerned about his BP. I asked about his medication compliance and diet. He has been doing a electrolyte drink packs due to leg cramps. Taking meds regularly same time every day. Has appt with Dr. Estevez 01/14. Will route to PCP to make her aware and see if she would recommend any changes pending his cardiology appt in a couple weeks. Please review and advise. Radha Maldonado MA * Telephone Encounter - Sharda Hanson LPN - 01/04/2024 11:43 AM EDT Patient called into office stating that he has recently started taking BP again. Patients BP is reading have been 01/02/2024 : 164/93; 01/03/2024 : 154/94; 01/04/2024; 175/96. Patient has been taking medication as prescribed. Patient had fall last may and is having pain still rating 4-9/10. Please advise. Sharda Hanson LPN documented in this encounterCenterville04-24-2024 Telephone encounter Note * Telephone Encounter - Raina Hebert LPN - 01/10/2024 4:32 PM EDT PATIENT NOTIFIED OF SAME. He states that he had been taking a electrolytes supplement with 1000 mg sodium due to severe muscle cramps. Had since stopped the supplements but cramps have returned. [place]04-24-2024 Telephone encounter Note* Telephone Encounter - Krystal Andino APRN.RESPITE WORKER - 01/10/2024 4:15 PM EDT Noted, he should take medications as prescribed daily, limit salt, avoid alcohol and caffeine. HE should check blood pressure daily and write that down and take it with him to his appointment with Dr. Estevez on 01/14. [place]04-24-2024 Telephone encounter Note* Telephone Encounter - Raina Hebert LPN - 01/10/2024 4:11 PM EDT Spoke with patient and he states that his blood pressures have been running about the same. 01/09/24 153/86 01/08/24 163/[address] Estevez on 01/15/24. [place]04-24-2024 Telephone encounter Note* Telephone Encounter - Krystal Andino APRN.CNP - 01/10/2024 8:57 AM EDT Please call patient to get updated bp readings for the last week. Thanks [place]04-18-2024 Telephone encounter Note* Telephone Encounter - Radha Maldonado MA - 01/04/2024 2:45 PM EDT Pt plans to continue monitoring daily. Radha Maldonado MA [place]04-18-2024 Telephone encounter Note* Telephone Encounter - Sharda Hanson LPN - 01/04/2024 2:30 PM EDT Images from the original note were not included. Emiliana Estevez MD You 20 minutes ago (2:09 PM) Need BP log for few days herb [place] Work Phone: [phone] 962-543304-18-2024 Telephone encounter Note* Telephone Encounter - Radha Maldonado MA - 01/04/2024 12:45 PM EDT Pt had not been taking his BP readings regularly until recently when he had a high reading at [facility]. He is feeling ok. Is just a little concerned about his BP. I asked about his medication compliance and diet. He has been doing a electrolyte drink packs due to leg cramps. Taking meds regularly same time every day. Has appt with Dr. Estevez 01/14. Will route to PCP to make her aware and see if she would recommend any changes pending his cardiology appt in a couple weeks. Please review and advise. Radha Maldonado MA [place]04-18-2024 Telephone encounter Note* Telephone Encounter - Sharda Hanson LPN - 01/04/2024 11:43 AM EDT Patient called into office stating that he has recently started taking BP again. Patients BP is reading have been 01/02/2024 : 164/93; 01/03/2024 : 154/94; 01/04/2024; 175/96. Patient has been taking medication as prescribed. Patient had fall last may and is having pain still rating 4-9/10. Please advise. Sharda Hanson LPN [place]03-25-2024 History of Present illness Narrative* Cortez Hyman AUD - 12/11/2023 2:00 PM EDT Head and Neck [place] HEARING AID CHECK Name: Tosha Spann CCF#: [id number] Date of Service: 12/11/2023 Date of : 1945 Age: [age] year old DEVICE INFORMATION RIGHT: Audeo P70-RT SN: [id number] Salvage Engineering Technician/Dome: 1M/Large Power LEFT: Audeo P70-RT SN: [id number] Salvage Engineering Technician/Dome: 1M/Large Power Fitting Date: 06/11/2020 Repair Warranty Expiration Date: 08/29/2023 Loss/Damage Expiration Date: 08/29/2023 Fitting Real Estate Director: Craig Chau CCC/Calos Wax Traps: Romel (disk) Retention: Yes Remote Support Activated: No Phone Connectivity: Yes Tl Connectivity: Yes SUBJECTIVE ASSESSMENT Tosha Spann, a 78 year old male, was seen today for a hearing aid check of the above devices and reported: - He reports that he had been in [place] this weekend visiting family and didn't realize that he hadan appointment today. He thought about canceling as he said he isn't having any problems. He decided to come in to have his devices cleaned and checked. He had extended his warranty until August ofs year and is reporting that his batteries are not lasting for him. He gets the low battery warning just after dinner. DEVICE CHECK Initial listening check and visual inspection revealed the aids were working. Next, the device(s) were cleaned and checked. The domes, wax guards, and retention lines were changed. Device(s) were vacuumed. Listening check revealed good function of the device(s). Device(s) were returned to patient who reported satisfaction with sound quality. PROGRAMMING The device(s) were programmed accordingly to address the outcome measures and patient's comments. Fitting Formula: Adaptive PhonNomiku Digital 2.0 Acclimatization: 100% Volume Control: Yes Feedback Principal System Software Engineer: Completed Data Logging: Yes Additional programming included: No programming needed today. Hearing Aid Programs P1 AutoSense OS 4 P2 Phone via T-coil + Jaison Patient was satisfied with the sound quality and fit of the device(s) today. COUNSELING Device counseling was provided covering the following points: sending his devices to [facility] under warranty to have his batteries changed and changing domes and wax guards Trial Audeo P-R's were configured as Audeo P70-R and programmed for the patient to wear while his devices are out. I assisted him in pairing the devices to his phone/tl. Patient counseling was provided addressing the following points: use/wear time realistic expectations and need to return for fine-tuning communication strategies to optimize hearing aid performance FINANCIAL COMPONENT Patient was charged $50 (hearing aid check short) for today's appointment, paid at the front end loader operator. RECOMMENDATIONS * Use of hearing devices during all waking hours except when activities preclude device safety. * Return when devices are back from repair. * Return for re-evaluation as medically indicated or sooner if change is noted. Craig Chau, [facility] documented in this encounterCenterville02-21-2024 Miscellaneous Notes* Telephone Encounter - Willie Bower LPN - 11/08/2023 9:19 AM EST Patient's request for medication is as follows: Requested Prescriptions Pending Prescriptions Disp Refills losartan (COZAAR) 50 mg tablet [Pharmacy Med Name: LOSARTAN POTASSIUM 50 MG Tablet] 180 tablet 0 Sig: take 1 tablet twice daily Last seen 12/29/2022. Pt needs apt for 12/2023 Prescription(s) as above. Please process accordingly. Willie Bower LPN documented in this encounterCenterville02-20-2024 Miscellaneous Notes* Telephone Encounter - Nevin Marquez MD - 11/07/2023 12:49 AM EST The following approved medication requests have been transmitted electronically. Requested Prescriptions Signed Prescriptions Disp Refills metFORMIN ER (GLUCOPHAGE XR) 500 mg 24 hr tablet 90 tablet 3 Sig: Take 1 tablet by mouth daily with breakfast. propranolol ER (INDERAL LA) 120 mg 24 hr capsule 90 capsule 3 Sig: Take 1 capsule by mouth once daily. omeprazole (PRILOSEC) 40 mg capsule 180 capsule 3 Sig: Take 1 capsule by mouth two times a day. Nevin Marquez MD Might need 2 other meds. See MyChart reply. * Telephone Encounter - Niurka Noel MA - 11/06/2023 9:15 AM EST Patient has been identified by name and date of : Yes Patient phones for refill(s): Requested Prescriptions Pending Prescriptions Disp Refills metFORMIN ER (GLUCOPHAGE XR) 500 mg 24 hr tablet 90 tablet 2 Sig: Take 1 tablet by mouth daily with breakfast. propranolol ER (INDERAL LA) 120 mg 24 hr capsule 90 capsule 3 Sig: Take 1 capsule by mouth once daily. omeprazole (PRILOSEC) 40 mg capsule 180 capsule 3 Sig: Take 1 capsule by mouth two times a day. Date of last office visit in primary care: 08/22/2023 Date of next office visit in primary care: 01/22/2024 Please advise. Thank you. Niurka Noel MA. documented in this encounterCenterville12-29-2023 NoteHNO ID: [id number] Author: Kevin Lopez CPhT Service: ? Author Type: Railroad Dining Car Stewardess Type: Plan of Care Filed: 09/15/2023 12:44 PM Note Text: PHARMACY BEDSIDE DELIVERY SERVICE Patient Name: Tosha Spann The marked outpatient medications were Filled at: [facility] and delivered to the patient's bedside to patient. Medication List START taking these medications phenazopyridine 200 mg tablet Commonly known as: PYRIDIUM Take 1 tablet by mouth three times a day as needed. CONTINUE taking these medications AdviL 200 mg tablet Generic drug: ibuprofen albuterol HFA 90 mcg/actuation inhaler Commonly known as: VENTOLIN HFA Inhale 2 Puffs as instructed every 4 hours as needed for Wheezing/Shortness of Breath. alcohol swabs Use with blood glucose test 3 times daily. Insulin Dep? No aspirin 81 mg chewable tablet Take 1 tablet by mouth once daily. B COMPLEX 1 ORAL betamethasone dipropionate, augmented 0.05 % cream Commonly known as: DIPROLENE Blood Glucose Control, Normal Soln 1 Ampule as directed. blood sugar diagnostic test strip Use with blood glucose test 3 times daily, Insulin Dep? No Blood-Glucose Meter 1 Device as directed. Test Three times a day. Before breakfast, lunch and before bedtime. CALCIUM CITRATE + D ORAL CLARITIN 10 mg tablet Generic drug: loratadine COMBIVENT RESPIMAT 20-100 mcg/actuation inhaler Generic drug: ipratropium 20 mcg-albuterol 100 mcg Inhale 1 Puff as instructed every 6 hours as needed. Cranberry 500 mg Cap DAILY MULTIVITAMIN-MINERALS tablet Generic drug: multivitamin with minerals dicyclomine 20 mg tablet Commonly known as: BENTYL Take 1 tablet by mouth once daily. docusate sodium 100 mg capsule Commonly known as: COLACE finasteride 5 mg tablet Commonly known as: PROSCAR Take 1 tablet by mouth once daily. * FLOVENT INHALATION * fluticasone 50 mcg/actuation nasal spray Commonly known as: FLONASE Use 2 Sprays in each nostril once daily as needed. GAS-X ORAL ipratropium bromide 42 mcg (0.06 %) nasal spray Commonly known as: ATROVENT Lancets lancets Use with blood glucose test 3 times daily. Insulin Dep? No losartan 50 mg tablet Commonly known as: COZAAR TAKE 1 TABLET TWICE DAILY meclizine 25 mg Tab Commonly known as: ANTIVERT MEDICATION, NON-DATABASE melatonin 5 mg tablet metFORMIN ER 500 mg 24 hr tablet Commonly known as: GLUCOPHAGE XR TAKE 1 TABLET EVERY DAY WITH BREAKFAST omeprazole 40 mg capsule Commonly known as: PriLOSEC Take 1 capsule by mouth twice daily. ondansetron 4 mg tablet Commonly known as: ZOFRAN Take 1 tablet by mouth every 8 hours as needed for nausea/vomiting. PROBIOTIC 15 billion cell capsule Generic drug: L.acidophilus-L.rhamnosus promethazine 25 mg tablet Commonly known as: PHENERGAN Take 1 tablet by mouth every 8 hours as needed. FOR NAUSEA propranolol ER 120 mg 24 hr capsule Commonly known as: INDERAL LA Take 1 capsule by mouth once daily. rosuvastatin 20 mg tablet Commonly known as: CRESTOR Take 1 tablet by mouth daily at bedtime. traZODone 50 mg tablet Commonly known as: DESYREL Take 0.5-1 tablets by mouth daily at bedtime. For insomnia and depression TylenoL 325 mg Cap Generic drug: acetaminophen VITAMIN C 1,000 mg tablet Generic drug: Ascorbic Acid * This list has 2 medication(s) that are the same as other medications prescribed for you. Read the directions carefully, and ask your doctor or other care provider to review them with you. You might also be taking other medications not listed above. If you have questions about any of your other medications, talk to the person who prescribed them or your Primary Care Provider. Kevin Lopez CPhT PAGER: Kevin Lopez ([facility]) [phone] September 15, 2023 12:43 [facility]12-29-2023 NoteHNO ID: [id number] Author: Tom Ricks MD Service: Urology Author Type: Physician Type: Progress Notes Filed: 09/15/2023 12:57 PM Note Text: UROLOGY PROGRESS NOTE PATIENT NAME: Tosha Spann DATE OF : 1945 ADMISSION DATE: 09/14/2023 8:13 AM Subjective S/p TURP. Tolerated procedure well. No nausea, vomiting, fevers or chills. No acute events overnight. Objective VS: BP 106/55 Pulse 69 Temp 36.4 ?C (97.5 ?F) (Oral) Resp 16 Ht 175.3 cm (5' 9) Wt 75.5 kg (166 lb 7.2 oz) SpO2 95% BMI 24.58 kg/m? I AND O - 24hr: Intake/Output Summary (Last 24 hours) at 09/15/2023 0705 Last data filed at 09/15/2023 0516 Gross per 24 hour Intake 810 ml Output 46086 ml Net -33499 ml Physical Exam: General: Neck: Resp: Abdomen: No acute distress Supple Normal effort Soft, non-tender, nondistended : 24F [address] casiano catheter draining grade 2 urine on slow drip. Labs and Imaging Studies LABS: BMP: Glucose (mg/dL) Date Value 08/23/2023 96 08/11/2021 102 Potassium (mmol/L) Date Value 08/23/2023 4.2 08/11/2021 4.2 Sodium (mmol/L) Date Value 08/23/2023 136 08/11/2021 140 Chloride (mmol/L) Date Value 08/23/2023 99 08/11/2021 101 CO2 (mmol/L) Date Value 08/23/2023 28 08/11/2021 29 Creatinine (mg/dL) Date Value 08/23/2023 0.88 08/11/2021 1.07 BUN (mg/dL) Date Value 08/23/2023 16 08/11/2021 22 Anion Gap (mmol/L) Date Value 08/23/2023 9 08/11/2021 10 Calcium (mg/dL) Date Value 08/11/2021 10.0 Calcium, Total (mg/dL) Date Value 08/23/2023 10.0 CBC: Hemoglobin (g/dL) Date Value 08/23/2023 13.4 08/11/2021 12.9 Hematocrit (%) Date Value 08/23/2023 40.0 08/11/2021 39.5 WBC (k/uL) Date Value 08/23/2023 3.68 08/11/2021 4.26 Platelet Count (k/uL) Date Value 08/23/2023 247 08/11/2021 280 Urinalysis: pH, Arterial Date Value Ref Range Status 10/25/2021 7.31 (L) 7.35 - 7.45 Final Specific [place], Ur Date Value Ref Range Status 10/13/2021 1.013 1.005 - 1.030 Final Glucose, Urine Date Value Ref Range Status 10/13/2021 Negative Negative Final Bilirubin, Urine Date Value Ref Range Status 10/13/2021 Negative Negative Final Ketones, Urine Date Value Ref Range Status 10/13/2021 Negative Negative Final Hemoglobin/Blood,Ur Date Value Ref Range Status 10/13/2021 Negative Negative Final Protein, Urine Date Value Ref Range Status 10/13/2021 Negative Negative Final Urobilinogen, Urine Date Value Ref Range Status 05/01/2012 0.2N Normal (<1.1) EU Final Nitrites Date Value Ref Range Status 10/13/2021 Negative Negative Final WBC, Urine Date Value Ref Range Status 10/13/2021 0-5 /HPF 0-5 /HPF Final Urine Culture: No results found for: URCUL RADIOLOGY: Assessment and Plan Problem List BPH with obstruction/lower urinary tract symptoms (POA: Yes) ASSESSMENT: 78 year old male with BPH s/p TURP PLAN: - POD1 TURP, tolerated procedure well - Vitals stable overnight - Maintain casiano catheter - Irrigate manually q4 - Clamp CBI, recheck urine - Plan for void trial and anticipate DC today Pamela Glass MD Urology PGY-3 Pager #[phone] 09/15/2023 7:06 AM I evaluated the patient. Discussed with the resident and agree with resident's findings and plan as documented in the resident's note.[facility]12-28-2023 NoteHNO ID: [id number] Author: Chase Monge RN Service: ? Author Type: Registered Nurse Type: Nursing Progress Note Filed: 09/14/2023 6:42 PM Note Text: Pt voided 520ml in urinal, bladder scan following showed 0ml residual[facility]23 NoteHNO ID: [id number] Author: Sabrina Serrano APRN.OFFICIAL COURT INTERPRETER Service: Anesthesiology Author Type: Nurse Clerical Office Type: Anesthesia Procedure Notes Filed: 09/14/2023 12:12 PM Note Text: ANESTHESIOLOGY PROCEDURE NOTE Airway General Information Procedure Start Time/Medication Administration: 09/14/2023 12:01 PM Procedure End Time: 09/14/2023 12:02 PM Patient location during procedure: OR Timeout Performed Pre-procedure: timeout performed Consent Obtained: Yes Patient identity confirmed: arm band and patient Staffing Anesthesiologist: Holger Gore MD OFFICIAL COURT INTERPRETER: Sabrina Serrano APRN.OFFICIAL COURT INTERPRETER Performed by: OFFICIAL COURT INTERPRETER Indications and Patient Condition Indications for airway management: anesthesia Preoxygenated: yes anesthesia circuit Patient position: sniffing Method: asleep Cricoid Pressure: No Manual In-Line Stabilization: No Difficult Mask: No Final Airway Details Final airway type: supraglottic airway Number of attempts at approach: 1 Final Supraglottic Airway: i-gel Size 4 Seal Adequate: yes Failed airway: no Airway not difficult SIGNATURE: Sabrina Serrano APRN.OFFICIAL COURT INTERPRETER PATIENT NAME: Tosha Spann DATE: September 14, 2023 TIME: 12:11 PM CSN: [id number] Nurse Note* Drew Paulino Ma - 08/29/2023 10:10 AM EST CYSTOSCOPY PROCEDURE NOTE: Tosha Spann is a 78 year old male who presents with BPH. Pt ID verified with patient: Yes Procedure verified with patient: Yes Procedure confirmed with physician and application support technician: Yes Sign In History and Physical Exam reviewed and is unchanged. Primary Diagnosis: BPH w/o Obstruction Informed Consent Discussed: Yes Sign in Communication: Completed Time Out: Team Confirms the Correct Patient, Correct Procedure; Cystoscopy, Correct Site and Site Marking, Correct Position (if applicable). Affirmation of Time Out: N/A Sign Out: Sign Out Discussion: Completed Physician: Drew Live urinalysis was performed revealing no evidence of infection. The benefits, risks, alternatives of the cystoscopy procedure and personnel were discussed with thepatient. The verbal consent was obtained and the patient agrees to proceed. Prophylaxis with Keflex 500 mg was given to the patient prior to the procedure. Procedure: The patient was placed on the procedure table in the supine position and prepped and draped in the usual sterile fashion. 2% Lidocaine Jelly was placed per urethra as an anesthetic in the standard fashion. Once adequate local anesthesia was achieved, the tip of the flexible cystoscope was carefully placed into the urethra under direct visual guidance. The scope was negotiated through the pendulous urethra to the level of the bulbar urethra with no evidence of stricture. The verumontanum came into view and the scope was negotiated through the prostatic urethra which showed evidence of a patent prostatic urethra. The bladder was entered and careful kat endoscopy was carried out. The posterior, superior and lateral steinberg and dome of the bladder were all well visualized and the scope was retroflexed upon itself. The findings were consistent with no evidence of bladder mucosal pathology. Clear urine ejected from the Right and Left ureteral orifice(s) was noted. At the conclusion of the procedure, the flexible cystoscope was removed atraumatically. The patienttolerated the procedure without complications. Patient was given standard post-procedure instructions, and was directed to complete the course of oral antibiotics and increase oral fluid intake as directed. Operation: Cystoscopy Anatomic Site: Bladder, Laterality: Bilateral Urethra, Laterality: Not applicable Approach: Endoscopic Device: Cystoscope Qualifier: None ASSESSMENT/PLAN: ASSESSMENT/PLAN: 1. BPH with obstruction/lower urinary tract symptoms - ICD9: 600.01, 599.69, ICD10: N40.1, N13.8 - SULFAMETHOXAZOLE 800 MG-TRIMETHOPRIM 160 MG TABLET - LIDOCAINE HCL 2 % MUCOSAL JELLY Drew Paulino Ma The patient has been instructed to return to the office after surgery is completed for post op follow-up. Drew Paulino Ma documented in this encounterCent[place]12-12-2023 Procedure note* Cipriano Thomas Jr., MD - 08/29/2023 9:50 AM EST CYSTOSCOPY PROCEDURE NOTE: Tosha Spann is a 78 year old male who presents with LUTs and BPH for cystoscopy. Pt ID verified with patient: Yes Fire risk assessment done Procedure verified with patient: Yes Procedure confirmed with physician and application support technician: Yes UNIVERSAL PROTOCOL / SAFETY CHECKLIST Procedure to be Performed: cystoscopy Sign In: A Moment of CARE was completed. Personnel directly involved with the procedure wore the appropriate PPE (Personal Protective Equipment). Patient/Surrogate Stated/Verified: PATIENT VERIFIED(optional for EMERGENT procedures): Patient name, Date of , Relevant allergies, and The intended procedure Time Out Communication: Intended patient and procedure match the source documents. Consent documented and matches the intended procedure. Sign Out: SIGN OUT (optional for EMERGENT procedures): No specimen collected. Cipriano Thomas Jr, MD Pre procedure dx: bph with luts Post procedure dx: same A urinalysis was performed revealing no evidence of infection. The benefits, risks, alternatives of the cystoscopy procedure and personnel were discussed with thepatient. The verbal consent was obtained and the patient agrees to proceed. Procedure: The patient was placed on the procedure table in the supine position and prepped and draped in the usual sterile fashion. 2% Lidocaine Jelly was placed per urethra as an anesthetic in the standard fashion. Once adequate local anesthesia was achieved, the tip of the flexible cystoscope was carefully placed into the urethra under direct visual guidance. The scope was negotiated through the pendulous urethra to the level of the bulbar urethra with no evidence of stricture. The verumontanum came into view and the scope was negotiated through the prostatic urethra which showed mild bilobar occlusion with high bladder neck. The bladder was entered and careful kat endoscopy was carried out. The posterior, superior and lateral steinberg and dome of the bladder were all well visualized and the scope was retroflexed upon itself. The findings were consistent with trabeculations. At the conclusion of the procedure, the flexible cystoscope was removed atraumatically. The patienttolerated the procedure without complications. Patient was given standard post-procedure instructions, and was directed to complete the course of oral antibiotics and increase oral fluid intake as directed. ASSESSMENT/PLAN: cysto, transurethral resection of the prostate All r/b/a of surgery discussed, infection, bleeding, damage to nearby structures, repeat surgery, nodular regrowth, bladder neck contracture, incontinence, impotence, lower urinary tract symptoms, repeat catheterizations. , heart attack, stroke, deep vein thrombosis, pulmonary embolus. Patient verbalized understanding and agrees to proceed. Cipriano Thomas Jr, MD documented in this encounterCent[place]12-05-2023 History of Present illness Narrative* SinaKrystal hernandez APRN.RESPITE WORKER - 08/22/2023 9:34 AM EST SUBJECTIVE Tosha Spann is a 78 year old male here today for a check up on his medical problems. Chief Complaint Patient presents with: F/U 6 months Immunizations: Flu vaccination HPI Tosha Spann is a 78 year old male. Here today for a 6 month follow up. This time of year is challenging, wedding anniversary and . Not sleeping great. Taking melatonin and then trazodone. Wakes early. Good support from family and latter day. Losing some weight but this is intentional. Scope for prostate in [place] coming up. Follow ups with urology and cardiology. He did recently fall and injure the right leg and had tendinosis of the quadriceps. Improving, doing PT. His medications were reviewed today and his list is now up to date. Medications Current Outpatient Medications Medication Sig cholecalciferol (VITAMIN D-3) 50 mcg (2,000 unit) tablet Take 2,000 Units by mouth once daily. loratadine (CLARITIN) 10 mg tablet Take 10 mg by mouth once daily. L.acidophilus-L.rhamnosus (PROBIOTIC) 15 billion cell capsule Take 1 capsule by mouth once daily. vitamin B complex (B COMPLEX 1 ORAL) Take 1 tablet by mouth once daily. mfyx-xfhjq-D7-minerals-cranber 125 mg-10 mcg- 250 mg tab Take 1 tablet by mouth once daily. multivitamin with minerals (DAILY MULTIVITAMIN-MINERALS) tablet Take 1 tablet by mouth once daily. melatonin 5 mg tablet Take 5 mg by mouth at bedtime as needed for insomnia. simethicone (GAS-X ORAL) Take 1 Capful by mouth once daily. dicyclomine (BENTYL) 20 mg tablet Take 1 tablet by mouth once daily. rosuvastatin (CRESTOR) 20 mg tablet Take 1 tablet by mouth daily at bedtime. finasteride (PROSCAR) 5 mg tablet Take 1 tablet by mouth once daily. metFORMIN ER (GLUCOPHAGE XR) 500 mg 24 hr tablet TAKE 1 TABLET EVERY DAY WITH BREAKFAST traZODone (DESYREL) 50 mg tablet Take 0.5-1 tablets by mouth daily at bedtime. For insomnia and depression (Patient taking differently: Take 25-50 mg by mouth as needed. For insomnia and depression) omeprazole (PRILOSEC) 40 mg capsule Take 1 capsule by mouth twice daily. propranolol ER (INDERAL LA) 120 mg 24 hr capsule Take 1 capsule by mouth once daily. losartan (COZAAR) 50 mg tablet TAKE 1 TABLET TWICE DAILY fluticasone (FLONASE) 50 mcg/actuation nasal spray Use 2 Sprays in each nostril once daily as needed. HYDROcodone-acetaminophen (NORCO) 5-325 mg per tablet Take 1 tablet by mouth as directed. aspirin 81 mg chewable tablet Take 1 tablet by mouth once daily. docusate sodium (COLACE) 100 mg capsule Take 2 tablets by mouth once daily. ipratropium 20 mcg-albuterol 100 mcg (COMBIVENT RESPIMAT) 20-100 mcg/actuation inhaler Inhale 1 Puff as instructed every 6 hours as needed. promethazine (PHENERGAN) 25 mg tablet Take 1 tablet by mouth every 8 hours as needed. FOR NAUSEA albuterol HFA (VENTOLIN HFA) 90 mcg/actuation inhaler Inhale 2 Puffs as instructed every 4 hours asneeded for Wheezing/Shortness of Breath. calcium citrate/vitamin d3(CITRACAL + D 315 MG-200 UNIT TAB) Take one(1) tablet two(2) times daily. Ascorbic Acid (VITAMIN C) 1,000 mg ORAL Tab Take one(1) tablet daily. chlorpheniramine (CHLORTRIMETON) 4 mg tablet Take 4 mg by mouth every 6 hours as needed. (Patient not taking: Reported on 08/22/2023) ondansetron (ZOFRAN) 4 mg tablet Take 1 tablet by mouth every 8 hours as needed for nausea/vomiting. Blood-Glucose Meter 1 Device as directed. Test Three times a day. Before breakfast, lunch and before bedtime. Blood Glucose Control, Normal soln 1 Ampule as directed. blood sugar diagnostic test strip Use with blood glucose test 3 times daily, Insulin Dep? No Lancets lancets Use with blood glucose test 3 times daily. Insulin Dep? No alcohol swabs Use with blood glucose test 3 times daily. Insulin Dep? No Current Facility-Administered Medications Medication Dose Route Frequency acetaminophen 650 mg tab(s) (TYLENOL) 650 mg ORAL q 6 H PRN ALLERGIES Allergen Reactions Barium Sulfate Hives Carafate [Sucralfat* GI Upset worsening of chest pain and IBS symptoms Erythromycin GI Upset only PO is problematic Flomax [Tamsulosin * Hives Penicillins unknown -childhood ACTIVE PROBLEM LIST Mucopurulent Chronic Bronchitis (Hcc) - 06/27/2022 Current Moderate Episode of Major Depressive Disorder ([facility]) - 01/31/2022 Comment: On lamictal low dose; has follow up with Kary Collazo, No big difference but no adverse effects either. Chronic Midline Low Back Pain - 01/31/2022 Psychophysiological Insomnia - 01/31/2022 Ifg (Impaired Fasting Glucose) - 01/31/2022 Comment: ? diabetes; hyperglycemic during hospitalization for CABG so reactive hyperglycemia also possibility. Continue metformin--sugars still in DM range S/P Cabg X 3 - 10/31/2021 Stable Angina Pectoris - 08/02/2021 Ascending Aorta Dilatation (Hcc) - 05/03/2021 Tinnitus, Bilateral - 08/21/2019 Svt (Supraventricular Tachycardia) - 05/02/2018 Excessive Daytime Sleepiness - 11/16/2017 Abnormal Rem Sleep Comment: REM dependent ALFONSO ALFONSO (obstructive sleep apnea), REM dependent - 06/28/2017 Sensorineural Hearing Loss, Bilateral - 06/23/2017 Bph (Benign Prostatic Hypertrophy) With Urinary Obstruction - 11/15/2013 Ddd (Degenerative Disc Disease), Cervical - 07/24/2013 Comment: bulging at c6-c7; had epidural injection Elevated Psa - 05/15/2013 Viral Warts - 07/30/2011 Inflamed Seborrheic Keratosis - 07/30/2011 Other Seborrheic Keratosis - 07/30/2011 Solar Lentigines - 07/30/2011 Actinic Skin Damage - 07/30/2011 Xerosis Cutis - 07/30/2011 Sauceda Angioma - 07/30/2011 Pain in Limb - 01/19/2010 Contracture of Palmar Fascia - 01/18/2010 Hyperglycemia - 08/10/2009 Osteoarthritis - 08/10/2009 Mixed Hyperlipidemia - 10/10/2008 Other Malaise and Fatigue - 10/10/2008 Osteoporosis, Unspecified - 10/10/2008 Bladder Neck Obstruction - 03/18/2008 Hypertrophy of Prostate With Urinary Obstruction and Other Lower Urinary Tract Symptoms (Luts) - 03/18/2008 Impotence of Organic Origin - 03/18/2008 Esophagitis, Unspecified - 04/12/2006 Sciatica - 05/11/2005 Enthesopathy of Hip Region - 05/11/2005 Esophageal Reflux - 05/11/2005 Essential Hypertension - 05/11/2005 Migraine Without Aura, Without Mention of Intractable Migraine Without Mention of Status Migrainosus - 05/11/2005 Diarrhea - 05/11/2005 Hemorrhage of Gastrointestinal Tract, Unspecified - 05/11/2005 Intestinal Infection Due to Campylobacter - 05/11/2005 Myalgia and Myositis, Unspecified - 05/11/2005 Social History Tobacco Use Smoking status: Former Packs/day: 1.50 Years: 6.00 Additional pack years: 0.00 Total pack years: 9.00 Types: Cigarettes Quit date: 09/18/1970 Years since quittin.9 Smokeless tobacco: Never Substance Use Topics Alcohol use: Yes Comment: rarely Drug use: No Review of Systems Respiratory: Negative. Cardiovascular: Negative. Musculoskeletal: Positive for arthralgias and myalgias. OBJECTIVE BP 158/82 Pulse 68 Resp 12 Wt 168 lb (76.2kg) Physical Exam Vitals and nursing note reviewed. Constitutional: General: He is awake. He is not in acute distress. Appearance: Normal appearance. He is well-developed and well-groomed. He is not ill-appearing, toxic-appearing or diaphoretic. HENT: Head: Normocephalic. Right Ear: External ear normal. Left Ear: External ear normal. Nose: Nose normal. Eyes: General: Vision grossly intact. Conjunctiva/sclera: Conjunctivae normal. Pupils: Pupils are equal, round, and reactive to light. Neck: Vascular: No JVD. Trachea: Trachea normal. Cardiovascular: Rate and Rhythm: Normal rate and regular rhythm. Pulses: Normal pulses. Heart sounds: Normal heart sounds. No murmur heard. Pulmonary: Effort: Pulmonary effort is normal. No accessory muscle usage, prolonged expiration or respiratory distress. Breath sounds: Normal breath sounds. Musculoskeletal: Cervical back: Neck supple. Skin: General: Skin is warm and dry. Capillary Refill: Capillary refill takes less than 2 seconds. Neurological: General: No focal deficit present. Mental Status: He is alert and oriented to person, place, and time. Mental status is at baseline. Psychiatric: Attention and Perception: Attention and perception normal. Mood and Affect: Mood and affect normal. Speech: Speech normal. Behavior: Behavior normal. Behavior is cooperative. Thought Content: Thought content normal. Cognition and Memory: Cognition and memory normal. Judgment: Judgment normal. ASSESSMENT/PLAN: 1. Essential hypertension - ICD9: 401.9, ICD10: I10 (primary diagnosis) - Home blood pressure readings controlled - Continue current medications - Recommend home blood pressure monitoring, to bring results to next visit - Encouraged sodium restriction, DASH or Mediterranean diet - Recommend regular aerobic exercise 2. Mixed hyperlipidemia - ICD9: 272.2, ICD10: E78.2 - Control undetermined, due for labs - Counseled on healthy diet and regular exercise - APOLIPOPROTEIN B BLD 3. Tendinosis of quadriceps tendon - ICD9: 727.89, ICD10: M76.899 Improving. 4. Elevated PSA - ICD9: 790.93, ICD10: R97.20 - TESTOSTERONE, FREE AND TOTAL 5. Psychophysiological insomnia - ICD9: 307.42, ICD10: F51.04 Manageable at this time. 6. Need for influenza vaccination - ICD9: V04.81, ICD10: Z23 - INFLUENZA VACCINE, PRSV FREE, AGE 65+ YR, HIGH DOSE, QUADRIVALENT (FLUZONE HIGH-DOSE) Portions of this note have been entered by ancillary staff. I have reviewed and when necessary edited, so that they are an adequate record of my encounter with this patient Please note that parts of this document were created using voice recognition software and therefore may contain grammatical errors. Patient verbalizes understanding of instructions from today's visit and in agreement with treatmentplan. Questions answered. Agrees to call the office if questions, concerns of issues with acute symptoms not improving or if they worsen. See diagnoses and orders for additional plan(s). Allergies and medications were reviewed, list was updated, and refills given if needed. Past medical, surgical, social, and family history reviewed and updated as appropriate. Encouraged proper diet & exercise as well as compliance with taking medications. Age- appropriate health preventative measures were discussed. Return if symptoms worsen or fail to improve, for Keep next scheduled appointment.. Krystal Andino APRN-RESPITE WORKER documented in this encounterCent[place]10-31-2023 History of Present illness Narrative* Cipriano Thomas Jr., MD - 07/18/2023 9:57 AM EDT ESTABLISHED PATIENT OFFICE VISIT HPI Tosha Spann is a 78 year old male who presents previous patient of dr. Matthews. Ho bph. On finasteride. luts controlled. Psa one year ago was 1.32. now is 2.38 12/14/21 - doing ok. luts controlled on finasteride. Weaker stream. No recent psa done. Had recent cabg. Recovering from that ok. 05/03/22 - still on finasteride. However luts worse. Co frequency/urgency. Does not tolerate flomax.Most recent psa 1.36 this year. Options discussed including anti-cholinergic vs. Cysto. 06/14/22 - no help with oxybutynin. However was only on for a few days because thought it was causing severe back pain. Options rediscussed including trying another anticholinergic vs. Cysto 07/12/22 - tried to add in toviaz did not tolerate. Made him very drowsy. Rediscussed cysto. He hashad multiple surgeries this year and would like to hold for now. 12/13/22 - since last seen . Luts have improved however. Less nocturia. Still on finasteride. Tolerating well. No fever. No uti. 07/18/23 - since last seen luts a little worse and more bothersome. Still on finasteride. No fever.No uti. Psa was 1.22 in 12/08. LAB: Creatinine Date Value Ref Range Status 11/17/2022 0.97 0.73 - 1.22 mg/dL Final PSA (ng/mL) Date Value 12/15/2021 1.36 11/09/2020 2.38 04/07/2020 1.32 01/30/2019 1.45 12/12/2016 3.60 01/20/2015 2.37 08/11/2014 2.38 06/19/2013 2.81 05/13/2013 5.39 01/14/2013 3.29 04/30/2012 3.19 PSA Screening (ng/mL) Date Value 11/17/2022 1.22 12/15/2021 1.38 Glucose, Urine Date Value 10/13/2021 Negative 02/21/2018 Negative mg/dL Bilirubin, Urine (no units) Date Value 10/13/2021 Negative 02/21/2018 Negative Ketones, Urine (no units) Date Value 10/13/2021 Negative 02/21/2018 Negative Specific [place], Ur (no units) Date Value 10/13/2021 1.013 02/21/2018 1.012 Hemoglobin/Blood,Ur Date Value 10/13/2021 Negative 02/21/2018 Negative pH, Urine (no units) Date Value 10/13/2021 6.5 02/21/2018 6.0 Protein, Urine Date Value 10/13/2021 Negative 02/21/2018 Negative mg/dL Urobilinogen, Urine (EU) Date Value 05/01/2012 0.2N Nitrites (no units) Date Value 10/13/2021 Negative 02/21/2018 Negative Leukocytes (no units) Date Value 05/01/2012 NEG WBC, Urine Date Value 10/13/2021 0-5 /HPF 02/21/2018 0-5 /HPF Color/Appearance (comment:) Date Value 05/01/2012 YELLOW/CLEAR MEDICATIONS: dicyclomine (BENTYL) 20 mg tablet^Take 1 tablet by mouth once daily.^Disp: 90 tablet^Rfl: 3 rosuvastatin (CRESTOR) 20 mg tablet^Take 1 tablet by mouth daily at bedtime.^Disp: 90 tablet^Rfl: 3 finasteride (PROSCAR) 5 mg tablet^Take 1 tablet by mouth once daily.^Disp: 90 tablet^Rfl: 3 metFORMIN ER (GLUCOPHAGE XR) 500 mg 24 hr tablet^TAKE 1 TABLET EVERY DAY WITH BREAKFAST^Disp: 90 tablet^Rfl: 2 fluticasone propion-salmeterol (AIRDUO RESPICLICK) 113-14 mcg/actuation breath activated inhaler^Inhale 1 Inhalation as instructed twice daily.^Disp: 3 Each^Rfl: 3 traZODone (DESYREL) 50 mg tablet^Take 0.5-1 tablets by mouth daily at bedtime. For insomnia and depression^Disp: ^Rfl: (Patient taking differently: Take 25-50 mg by mouth as needed. For insomnia and depression) omeprazole (PRILOSEC) 40 mg capsule^Take 1 capsule by mouth twice daily.^Disp: 180 capsule^Rfl: 3 propranolol ER (INDERAL LA) 120 mg 24 hr capsule^Take 1 capsule by mouth once daily.^Disp: 90 capsule^Rfl: 3 losartan (COZAAR) 50 mg tablet^TAKE 1 TABLET TWICE DAILY^Disp: 180 tablet^Rfl: 3 fluticasone (FLONASE) 50 mcg/actuation nasal spray^Use 2 Sprays in each nostril once daily as needed.^Disp: 3 Each^Rfl: 3 chlorpheniramine (CHLORTRIMETON) 4 mg tablet^Take 4 mg by mouth every 6 hours as needed.^Disp: ^Rfl: HYDROcodone-acetaminophen (NORCO) 5-325 mg per tablet^Take 1 tablet by mouth as directed.^Disp: ^Rfl: aspirin 81 mg chewable tablet^Take 1 tablet by mouth once daily.^Disp: 30 tablet^Rfl: 0 ondansetron (ZOFRAN) 4 mg tablet^Take 1 tablet by mouth every 8 hours as needed for nausea/vomiting.^Disp: 30 tablet^Rfl: 3 Blood-Glucose Meter^1 Device as directed. Test Three times a day. Before breakfast, lunch and before bedtime.^Disp: 1 Each^Rfl: 0 Blood Glucose Control, Normal soln^1 Ampule as directed.^Disp: 1 Each^Rfl: 0 blood sugar diagnostic test strip^Use with blood glucose test 3 times daily, Insulin Dep? No^Disp: 300 Strip^Rfl: 5 Lancets lancets^Use with blood glucose test 3 times daily. Insulin Dep? No^Disp: 300 Each^Rfl: 5 alcohol swabs^Use with blood glucose test 3 times daily. Insulin Dep? No^Disp: 300 Each^Rfl: 5 docusate sodium (COLACE) 100 mg capsule^Take 2 tablets by mouth once daily. ^Disp: ^Rfl: methylcellulose (CITRUCEL ORAL)^Take by mouth once daily.^Disp: ^Rfl: ipratropium 20 mcg-albuterol 100 mcg (COMBIVENT RESPIMAT) 20-100 mcg/actuation inhaler^Inhale 1 Puff as instructed every 6 hours as needed.^Disp: 4 g^Rfl: 11 promethazine (PHENERGAN) 25 mg tablet^Take 1 tablet by mouth every 8 hours as needed. FOR NAUSEA^Disp: 10 tablet^Rfl: 1 albuterol HFA (VENTOLIN HFA) 90 mcg/actuation inhaler^Inhale 2 Puffs as instructed every 4 hours asneeded for Wheezing/Shortness of Breath.^Disp: 1 Inhaler^Rfl: 3 calcium citrate/vitamin d3(CITRACAL + D 315 MG-200 UNIT TAB)^Take one(1) tablet two(2) times daily.^Disp: ^Rfl: 0 Ascorbic Acid (VITAMIN C) 1,000 mg ORAL Tab^Take one(1) tablet daily.^Disp: ^Rfl: 0 REVIEW OF SYSTEMS Review of Systems Constitutional: Negative. Respiratory: Negative. Cardiovascular: Negative. Gastrointestinal: Negative. Genitourinary: Negative. Skin: Negative. Neurological: Negative. Psychiatric/Behavioral: Negative. HISTORIES PAST MEDICAL HISTORY Diagnosis Date Abnormal REM sleep REM dependent ALFONSO CAD (coronary artery disease) Diarrhea 05/11/2005 Diarrhea Enthesopathy of hip region 05/11/2005 Esophageal reflux 05/11/2005 Hemorrhage of gastrointestinal tract, unspecified 05/11/2005 Intestinal infection due to campylobacter 05/11/2005 Migraine without aura, without mention of intractable migraine without mention of status migrainosus 05/11/2005 Propranolol effective for prevention Nocturnal hypoxemia Diagnosed on PSG Primary hypertension 05/11/2005 PUD (peptic ulcer disease) 1968 conservative tx while in service Pure hypercholesterolemia 05/11/2005 Sciatica 05/11/2005 FAMILY HISTORY Problem Relation Age of Onset Diabetes Mother Heart Father GA Diabetes Brother Stroke Maternal Grandfather Cancer Paternal Grandfather SOCIAL HISTORY Social History Tobacco Use Smoking status: Former Packs/day: 1.50 Years: 6.00 Additional pack years: 0.00 Total pack years: 9.00 Types: Cigarettes Quit date: 09/18/1970 Years since quittin.8 Smokeless tobacco: Never Substance Use Topics Alcohol use: Yes Alcohol/week: 1.7 standard drinks of alcohol Comment: rarely Drug use: No PHYSICAL EXAMINATION General appearance: Well appearing, alert, in no acute distress, and well- hydrated, well nourished Skin: Skin color, texture, turgor normal, no suspicious rashes or lesions Respiratory:+ effort Cardiovascular: Not examined GI: Normal abdominal exam, Abdomen soft, non-tender. No masses, organomegaly Musculoskeletal: Negative Neuro: Negative Genitourinary: not examined Impression: (N40.1, N13.8) BPH with obstruction/lower urinary tract symptoms (primary encounter diagnosis) Plan: cystoscopy Cipriano Thomas Jr, MD 07/18/2023 documented in this encounterCenterville09-28-2023 Miscellaneous Notes* Telephone Encounter - Dilia Askew - 06/15/2023 9:13 AM EDT Called pt., pt stated that he uses [facility] and does not want to come to ortho here * Telephone Encounter - Sharad Brennan APRN.CNS - 06/09/2023 3:28 PM EDT Ortho consult placed. Please schedule. Fax MRI report to Ortho. * Telephone Encounter - Grecia Larios LPN - 06/09/2023 10:05 AM EDT Spoke to patient. Patient does not have an appointment with Ortho yet but did have MRI done yesterday evening. Results and hospital records at nurses desk for review. He doesn't know what to do next.Patient was agreeable to be seen here for hospital f/u and MRI results. Appointment was made with [facility] for Monday afternoon. Patient has his own crutches and has been using them and is able to maneuver around with them with no problems. * Telephone Encounter - Sharad Brennan APRN.CNS - 06/08/2023 4:50 PM EDT Noted, can refer him to ortho if he still does not have an appt. Can be seen here as well if needed. Is he using a crutch or walker? * Telephone Encounter - May Minaya RN - 06/08/2023 3:52 PM EDT Patient calling to update Dr. Marquez that he injured his right leg on Saturday 06/02. He went to [facility] on Sunday 06/03. Reports Xray was negative and pt was advised to treat at home with crutches, elevate and ice leg, F/U with PCP. Patient reports today his right thigh from groin to knee is the color of blue jeans and swollen like a watermelon. Reports pt was seeing Dr. eLi for somethingunrelated to his leg but did mention his sx's to provider. Reports Dr. Lei placed order for pt to have an MRI of his right leg which pt will be having this afternoon at [facility]. Also reports Dr. Lei tried to get pt seen by Ortho but was unable at this time. Pt denies any numbness or tingling ofright leg or foot.No extreme warmth or cold to right leg or foot. Pt wanted Dr. Marquez to be aware of this update and pt will have MRI results sent to Dr. Perez well. 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 His audiogram was updated in [facility] and put into the [facility]. His settings were recalculated and verified using RealEar measures. His Speech Intelligibility Index (SII) scores in the right ear improved from 25 unaided to 60 for aided average speech. SII scores in the left ear improved from 16 unaided to 61 for aided average speech. He perceived hearingcomfortably so his aids were programmed. He also said that his left aid is no longer showing up in his tl. I helped him to forget his devices and re- pair them both to the tl. I dispensed supplies for him. 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 I reviewed his warranty and quoted him $200 per device to extend the warranty for another year. He decided that he would extend the warranty. I will call Phone to get that extended. He paid for the warranty and his visit today. Recommendations Return as needed. Craig Chau, JIMMY-A documented in this encounterCenterville09-25-2023 History of Present illness Narrative* MikaSharad, LEAD SOFTWARE DEVELOPMENT ENGINEER.STAFF PSYCHOLOGIST - 06/12/2023 2:32 PM EDT SUBJECTIVE: BP Controlled (<130/80) Never done Influenza Vaccine(1) due on 05/19/2023 HPI Tosha Spann is a 78 year old male. PMH significant for ACTIVE PROBLEM LIST Sciatica Enthesopathy of Hip Region Esophageal Reflux Essential Hypertension Migraine Without Aura, Without Mention of Intractable Migraine Without Mention of Status Migrainosus Diarrhea Hemorrhage of Gastrointestinal Tract, Unspecified Intestinal Infection Due to Campylobacter Myalgia and Myositis, Unspecified Esophagitis, Unspecified Bladder Neck Obstruction Hypertrophy of Prostate With Urinary Obstruction and Other Lower Urinary Tract Symptoms (Luts) Impotence of Organic Origin Mixed Hyperlipidemia Other Malaise and Fatigue Osteoporosis, Unspecified Hyperglycemia Osteoarthritis Contracture of Palmar Fascia Pain in Limb Viral Warts Inflamed Seborrheic Keratosis Other Seborrheic Keratosis Solar Lentigines Actinic Skin Damage Xerosis Cutis Sauceda Angioma Elevated Psa Ddd (Degenerative Disc Disease), Cervical Bph (Benign Prostatic Hypertrophy) With Urinary Obstruction Sensorineural Hearing Loss, Bilateral ALFONSO (obstructive sleep apnea), REM dependent Abnormal Rem Sleep Excessive Daytime Sleepiness Svt (Supraventricular Tachycardia) ([facility]) Tinnitus, Bilateral Ascending Aorta Dilatation (Hcc) Stable Angina Pectoris ([facility]) S/P Cabg X 3 Current Moderate Episode of Major Depressive Disorder (Hcc) Chronic Midline Low Back Pain Psychophysiological Insomnia Ifg (Impaired Fasting Glucose) Mucopurulent Chronic Bronchitis ([facility]) Mr. Spann was seen at [facility] emergency department on June 03, 2023 with lower extremity injury. Injury was to the right anterior thigh. He noted 1 episode of incontinence following but no new numbness anesthesia or fecal incontinence. He reported slipping down 3 stairs theday prior to arrival. Ice and compression wraps did not help much. He noted pain with movement and weakness secondary to the pain. Exam documented as unremarkable. X-ray completed and did not show a fracture of the femur. He declined pain medicine. He was advised to avoid weightbearing and use crutches. [id number] pain medicines and follow-up with primary care. He was seen by Dr. Lei pain management subsequently and underwent MRI lower extremity of the right side without contrast which showed large knee effusion, extensive superficial subcutaneous soft tissue edema and extensive circumferential strains of the anterior posterior medial and lateral jose rtmental musculature. Distal quadriceps tendinosis with increased signal intensity and thickening noted. Normal femur. Today reports he had 2 recent falls with the same footwear which she has now turned away. He reports the last fall falling over to his side on gravel/garden He reports taking as needed ibuprofen. No report of GERD symptoms or signs of GI bleeding. Notes icing periodically. Elevating his leg. Not currently using an Mathew wrap because he was ballooning out above and below. Orthopedic appointment has not yet been scheduled. Notes pain of anterior quadriceps near knee, distal quadricep pain worse with flexion, not worse walking unless loses his balance. Anterior thigh pain up to groin level, but less than at knee. Review of Systems Constitutional: Negative. Musculoskeletal: Positive for arthralgias and myalgias. Objective BP 167/87 Pulse 67 Resp 16 Wt 80.3 kg (177 lb) BMI 27.72 kg/m Physical Exam Vitals and nursing note reviewed. Constitutional: Appearance: Normal appearance. HENT: Head: Normocephalic and atraumatic. Eyes: Conjunctiva/sclera: Conjunctivae normal. Cardiovascular: Rate and Rhythm: Normal rate and regular rhythm. Heart sounds: Normal heart sounds. Pulmonary: Effort: Pulmonary effort is normal. Breath sounds: Normal breath sounds. Abdominal: General: Bowel sounds are normal. Palpations: Abdomen is soft. Musculoskeletal: Right knee: Deformity and effusion present. Decreased range of motion. Tenderness present. Comments: Extensive excessive ecchymosis from right groin down to left knee, decreased range of motion right knee, large effusion right knee, tender to palpation quadricep Skin: General: Skin is dry. Neurological: General: No focal deficit present. Mental Status: He is alert and oriented to person, place, and time. ALLERGIES Allergen Reactions Barium Sulfate Hives Carafate [Sucralfat* GI Upset worsening of chest pain and IBS symptoms Erythromycin GI Upset only PO is problematic Flomax [Tamsulosin * Hives Penicillins unknown -childhood dicyclomine (BENTYL) 20 mg tablet^Take 1 tablet by mouth once daily.^Disp: 90 tablet^Rfl: 3 rosuvastatin (CRESTOR) 20 mg tablet^Take 1 tablet by mouth daily at bedtime.^Disp: 90 tablet^Rfl: 3 finasteride (PROSCAR) 5 mg tablet^Take 1 tablet by mouth once daily.^Disp: 90 tablet^Rfl: 3 metFORMIN ER (GLUCOPHAGE XR) 500 mg 24 hr tablet^TAKE 1 TABLET EVERY DAY WITH BREAKFAST^Disp: 90 tablet^Rfl: 2 fluticasone propion-salmeterol (AIRDUO RESPICLICK) 113-14 mcg/actuation breath activated inhaler^Inhale 1 Inhalation as instructed twice daily.^Disp: 3 Each^Rfl: 3 traZODone (DESYREL) 50 mg tablet^Take 0.5-1 tablets by mouth daily at bedtime. For insomnia and depression^Disp: ^Rfl: (Patient taking differently: Take 25-50 mg by mouth as needed. For insomnia and depression) omeprazole (PRILOSEC) 40 mg capsule^Take 1 capsule by mouth twice daily.^Disp: 180 capsule^Rfl: 3 propranolol ER (INDERAL LA) 120 mg 24 hr capsule^Take 1 capsule by mouth once daily.^Disp: 90 capsule^Rfl: 3 losartan (COZAAR) 50 mg tablet^TAKE 1 TABLET TWICE DAILY^Disp: 180 tablet^Rfl: 3 fluticasone (FLONASE) 50 mcg/actuation nasal spray^Use 2 Sprays in each nostril once daily as needed.^Disp: 3 Each^Rfl: 3 chlorpheniramine (CHLORTRIMETON) 4 mg tablet^Take 4 mg by mouth every 6 hours as needed.^Disp: ^Rfl: HYDROcodone-acetaminophen (NORCO) 5-325 mg per tablet^Take 1 tablet by mouth as directed.^Disp: ^Rfl: ondansetron (ZOFRAN) 4 mg tablet^Take 1 tablet by mouth every 8 hours as needed for nausea/vomiting.^Disp: 30 tablet^Rfl: 3 Blood-Glucose Meter^1 Device as directed. Test Three times a day. Before breakfast, lunch and before bedtime.^Disp: 1 Each^Rfl: 0 Blood Glucose Control, Normal soln^1 Ampule as directed.^Disp: 1 Each^Rfl: 0 blood sugar diagnostic test strip^Use with blood glucose test 3 times daily, Insulin Dep? No^Disp: 300 Strip^Rfl: 5 Lancets lancets^Use with blood glucose test 3 times daily. Insulin Dep? No^Disp: 300 Each^Rfl: 5 alcohol swabs^Use with blood glucose test 3 times daily. Insulin Dep? No^Disp: 300 Each^Rfl: 5 docusate sodium (COLACE) 100 mg capsule^Take 2 tablets by mouth once daily. ^Disp: ^Rfl: methylcellulose (CITRUCEL ORAL)^Take by mouth once daily.^Disp: ^Rfl: ipratropium 20 mcg-albuterol 100 mcg (COMBIVENT RESPIMAT) 20-100 mcg/actuation inhaler^Inhale 1 Puff as instructed every 6 hours as needed.^Disp: 4 g^Rfl: 11 promethazine (PHENERGAN) 25 mg tablet^Take 1 tablet by mouth every 8 hours as needed. FOR NAUSEA^Disp: 10 tablet^Rfl: 1 albuterol HFA (VENTOLIN HFA) 90 mcg/actuation inhaler^Inhale 2 Puffs as instructed every 4 hours asneeded for Wheezing/Shortness of Breath.^Disp: 1 Inhaler^Rfl: 3 calcium citrate/vitamin d3(CITRACAL + D 315 MG-200 UNIT TAB)^Take one(1) tablet two(2) times daily.^Disp: ^Rfl: 0 Ascorbic Acid (VITAMIN C) 1,000 mg ORAL Tab^Take one(1) tablet daily.^Disp: ^Rfl: 0 nabumetone (RELAFEN) 500 mg tablet^Take 500 mg by mouth twice daily. TAKE WITH FOOD.^Disp: ^Rfl: aspirin 81 mg chewable tablet^Take 1 tablet by mouth once daily.^Disp: 30 tablet^Rfl: 0 PAST MEDICAL HISTORY Diagnosis Date Abnormal REM sleep REM dependent ALFONSO CAD (coronary artery disease) Diarrhea 05/11/2005 Diarrhea Enthesopathy of hip region 05/11/2005 Esophageal reflux 05/11/2005 Hemorrhage of gastrointestinal tract, unspecified 05/11/2005 Intestinal infection due to campylobacter 05/11/2005 Migraine without aura, without mention of intractable migraine without mention of status migrainosus 05/11/2005 Propranolol effective for prevention Nocturnal hypoxemia Diagnosed on PSG Primary hypertension 05/11/2005 PUD (peptic ulcer disease) 1968 conservative tx while in service Pure hypercholesterolemia 05/11/2005 Sciatica 05/11/2005 Social History Tobacco Use Smoking status: Former Packs/day: 1.50 Years: 6.00 Additional pack years: 0.00 Total pack years: 9.00 Types: Cigarettes Quit date: 09/18/1970 Years since quittin.7 Smokeless tobacco: Never Substance Use Topics Alcohol use: Yes Alcohol/week: 1.7 standard drinks of alcohol Comment: rarely Drug use: No ASSESSMENT/PLAN: 1. Tendinosis of quadriceps tendon - ICD9: 727.89, ICD10: M76.899 (primary diagnosis) 2. Muscle strain of right thigh, subsequent encounter - ICD9: V58.89, 843.9, ICD10: S76.911D 3. Effusion, right knee - ICD9: 719.06, ICD10: M25.461 Recommend continue with rest ice and elevation. He noted not doing well with compression so would avoid for now. May use cane as needed for balance. Footwear with good golf cart mechanic is endorsed. Make an appointment with orthopedic provider this week. Declines alternate pain medication at this time, will continue with ibuprofen as needed. He prefers to see [facility] Dr Knowles. Sharad Brennan APRN.CNS Medical Decision Making: Problems: Moderate: Acute complicated injury Data: Unique source(s) for external note(s) reviewed: 1 Unique test result(s) reviewed: 2 Medical Decision Making Level: 4 - Moderate documented in this encounterCenterville08-23-2023 Miscellaneous Notes* Telephone Encounter - Krystal Andino APRN.CNP - 05/10/2023 7:54 AM EDT Noted, med list updated * Telephone Encounter - Raheem Pacheco RN - 05/08/2023 11:40 AM EDT Patient asking who originally prescribed him lamotrigine. Advised per chart notes Kary originally prescribed it a few years ago, and pcp prescribed it recently. Patient reports he just realized he has not taken lamotrigine for several months, and states he has decided not to take it. Reports he read the side effects today, and doesn't think he needs it since the trazodone is helping him. Patientreports he picked up the short supply at local pharmacy and he will call the mail order to cancel it. documented in this encounterCenterville08-17-2023 Miscellaneous Notes* Telephone Encounter - Ana Olea LPN - 05/04/2023 9:31 AM EDT TC Patient, notified RX sent to mail-order pharmacy & Angie/May. Ana Olea LPN * Telephone Encounter - Nevin Marquez MD - 05/03/2023 11:29 PM EDT The following approved medication requests have been transmitted electronically. Requested Prescriptions Signed Prescriptions Disp Refills lamoTRIgine (LAMICTAL) 100 mg tablet 90 tablet 1 Sig: Take 1 tablet by mouth once daily. lamoTRIgine (LAMICTAL) 100 mg tablet 14 tablet 0 Sig: Take 1 tablet by mouth once daily for 14 days. Nevin Marquez MD * Telephone Encounter - Niurka Noel MA - 05/01/2023 9:38 AM EDT Patient phones requesting refills as follows: Pt currently out of medications. Please send short term to [facility] and day to mail order. Requested Prescriptions Pending Prescriptions Disp Refills lamoTRIgine (LAMICTAL) 100 mg tablet 90 tablet 1 Sig: Take 1 tablet by mouth once daily. lamoTRIgine (LAMICTAL) 100 mg tablet 14 tablet 0 Sig: Take 1 tablet by mouth once daily for 14 days. Please review and advise. Niurka Noel MA documented in this encounterCenterville07-20-2023 Miscellaneous Notes* Telephone Encounter - Nevin Marquez MD - 04/06/2023 3:36 PM EDT Okayed * Telephone Encounter - Grecia Lairos LPN - 04/06/2023 2:09 PM EDT Patient has been identified by name and date of : Yes, Provider Felix Date 04/06/23 Time 2:12pm [employer] message sent to patient: looking at your chart it appears that your next appointment for August has not been scheduled yet, one of our schedulers with contact you to set up this appointment. Patient phones for refill(s): Requested Prescriptions Pending Prescriptions Disp Refills dicyclomine (BENTYL) 20 mg tablet 90 tablet 3 Sig: Take 1 tablet by mouth once daily. Date of last office visit in primary care: 02/21/23 Last 2 Encounter Wt Readings: Date: Wt: 02/21/2023 84.8 kg (187 lb) 02/10/2023 83.9 kg (185 lb) Please advise. Thank you. Grecia Larios LPN documented in this encounterCenterville06-23-2023 Miscellaneous Notes* Telephone Encounter - Jordyn Deal MA - 03/10/2023 3:05 PM EDT Patient's request for medication is as follows: Requested Prescriptions Pending Prescriptions Disp Refills rosuvastatin (CRESTOR) 20 mg tablet 90 tablet 3 Sig: Take 1 tablet by mouth daily at bedtime. Last seen 01.02.23. follow up 01.15.24. Prescription(s) as above. Please process accordingly. Jordyn Deal MA documented in this encounterCenterville06-23-2023 Miscellaneous Notes* Telephone Encounter - Nicho Terry Ma - 03/10/2023 1:31 PM EDT Pharmacy called requesting the following refill. Requested Prescriptions Pending Prescriptions Disp Refills finasteride (PROSCAR) 5 mg tablet 90 tablet 3 Sig: Take 1 tablet by mouth once daily. Patient last appointment: 12/13/2022 Patient Phone numbers: [phone] (home) Request is for script(s) to be escript to pharmacy. Nicho Terry Ma documented in this encounterCenterville06-06-2023 History of Present illness Narrative* Nevin Marquez MD - 02/21/2023 8:47 AM EDT This note was created using NoteWriter. Subjective Tosha Spann is a 77 year old male. Patient presents with: Follow Up SUBJECTIVE: Tosha Spann is a 77 year old year old gentleman here today for 3 month follow up appointment for review of medical conditions. Getting left rotator cuff surgery 03/01 (right handed) Also getting back injection this Blood sugar fasting is up to 125 at home. Less active due to shoulder and back pain. Not sleeping well due to back and shoulder pain. Melatonin not helping much for sleep. Daytime sleepiness noted. Ongoing constipation. Linzess samples from GI.Constipation has settled down. Citrucel, prunes and raisin, greens. Improved without Linzess. BP better at home 130s over 80s. Did not have BP med this AM since came fasting in case needed labsdone. PAST MEDICAL HISTORY Diagnosis Date Abnormal REM sleep REM dependent ALFONSO CAD (coronary artery disease) Diarrhea 05/11/2005 Diarrhea Enthesopathy of hip region 05/11/2005 Esophageal reflux 05/11/2005 Hemorrhage of gastrointestinal tract, unspecified 05/11/2005 Intestinal infection due to campylobacter 05/11/2005 Migraine without aura, without mention of intractable migraine without mention of status migrainosus 05/11/2005 Propranolol effective for prevention Nocturnal hypoxemia Diagnosed on PSG Primary hypertension 05/11/2005 PUD (peptic ulcer disease) 1968 conservative tx while in service Pure hypercholesterolemia 05/11/2005 Sciatica 05/11/2005 Current Outpatient Medications Medication Sig nabumetone (RELAFEN) 500 mg tablet Take 500 mg by mouth twice daily. TAKE WITH FOOD. finasteride (PROSCAR) 5 mg tablet Take 1 tablet by mouth once daily. metFORMIN ER (GLUCOPHAGE XR) 500 mg 24 hr tablet TAKE 1 TABLET EVERY DAY WITH BREAKFAST dicyclomine (BENTYL) 20 mg tablet Take 1 tablet by mouth once daily. fluticasone propion-salmeterol (AIRDUO RESPICLICK) 113-14 mcg/actuation breath activated inhaler Inhale 1 Inhalation as instructed twice daily. traZODone (DESYREL) 50 mg tablet Take 0.5-1 tablets by mouth daily at bedtime. For insomnia and depression (Patient taking differently: Take 25-50 mg by mouth as needed. For insomnia and depression) omeprazole (PRILOSEC) 40 mg capsule Take 1 capsule by mouth twice daily. propranolol ER (INDERAL LA) 120 mg 24 hr capsule Take 1 capsule by mouth once daily. losartan (COZAAR) 50 mg tablet TAKE 1 TABLET TWICE DAILY fluticasone (FLONASE) 50 mcg/actuation nasal spray Use 2 Sprays in each nostril once daily as needed. chlorpheniramine (CHLORTRIMETON) 4 mg tablet Take 4 mg by mouth every 6 hours as needed. HYDROcodone-acetaminophen (NORCO) 5-325 mg per tablet Take 1 tablet by mouth as directed. rosuvastatin (CRESTOR) 20 mg tablet Take 1 tablet by mouth daily at bedtime. ondansetron (ZOFRAN) 4 mg tablet Take 1 tablet by mouth every 8 hours as needed for nausea/vomiting. Blood-Glucose Meter 1 Device as directed. Test Three times a day. Before breakfast, lunch and before bedtime. Blood Glucose Control, Normal soln 1 Ampule as directed. blood sugar diagnostic test strip Use with blood glucose test 3 times daily, Insulin Dep? No Lancets lancets Use with blood glucose test 3 times daily. Insulin Dep? No alcohol swabs Use with blood glucose test 3 times daily. Insulin Dep? No docusate sodium (COLACE) 100 mg capsule Take 2 tablets by mouth once daily. methylcellulose (CITRUCEL ORAL) Take by mouth once daily. ipratropium 20 mcg-albuterol 100 mcg (COMBIVENT RESPIMAT) 20-100 mcg/actuation inhaler Inhale 1 Puff as instructed every 6 hours as needed. promethazine (PHENERGAN) 25 mg tablet Take 1 tablet by mouth every 8 hours as needed. FOR NAUSEA albuterol HFA (VENTOLIN HFA) 90 mcg/actuation inhaler Inhale 2 Puffs as instructed every 4 hours asneeded for Wheezing/Shortness of Breath. calcium citrate/vitamin d3(CITRACAL + D 315 MG-200 UNIT TAB) Take one(1) tablet two(2) times daily. Ascorbic Acid (VITAMIN C) 1,000 mg ORAL Tab Take one(1) tablet daily. vsxifj-lconcnkw-ekwmilo (CREON 36) 36,000-114,000- 180,000 unit delayed release capsule Take 2 capsules by mouth three times daily with meals. (Patient not taking: Reported on 02/21/2023) aspirin 81 mg chewable tablet Take 1 tablet by mouth once daily. Current Facility-Administered Medications Medication Dose Route Frequency acetaminophen 650 mg tab(s) (TYLENOL) 650 mg ORAL q 6 H PRN Review of Systems Objective BP 152/88 Pulse 66 Temp 36.3 C (97.4 F) Resp 18 Wt 84.8 kg (187 lb) SpO2 96% BMI 29.29 kg/m Last 5 Encounter Wt Readings: Date: Wt: 02/21/2023 84.8 kg (187 lb) 02/10/2023 83.9 kg (185 lb) 01/02/2023 84.8 kg (187 lb) 12/13/2022 84.4 kg (186 lb) 11/15/2022 83 kg (183 lb) No waist measurement recorded Estimated body mass index is 29.29 kg/m as calculated from the following: Height as of 02/10/23: 170.2 cm (5' 7). Weight as of this encounter: 84.8 kg (187 lb). Last 5 Encounter BP Readings: Date: BP: 02/21/2023 152/88 02/10/2023 138/82 01/02/2023 160/100 11/15/2022 136/76 08/16/2022 132/82 Physical Exam Vitals reviewed. Constitutional: Appearance: Normal appearance. Eyes: Conjunctiva/sclera: Conjunctivae normal. Cardiovascular: Rate and Rhythm: Normal rate and regular rhythm. Heart sounds: Normal heart sounds. Pulmonary: Effort: Pulmonary effort is normal. Breath sounds: Normal breath sounds. Skin: General: Skin is warm and dry. Neurological: General: No focal deficit present. Mental Status: He is alert and oriented to person, place, and time. Psychiatric: Mood and Affect: Mood normal. Behavior: Behavior normal. Thought Content: Thought content normal. Judgment: Judgment normal. Had labs for PAT at [facility]. HgA1C 6.0 Assessment and Plan Encounter Diagnosis ICD-10-CM 1. Essential hypertension I10 CBC BASIC METABOLIC PNL 2. Mixed hyperlipidemia E78.2 3. IFG (impaired fasting glucose) R73.01 BASIC METABOLIC PNL HGB A1C 4. Psychophysiological insomnia F51.04 5. Constipation, unspecified constipation type K59.00 Above issues addressed with patient. Patient involved in shared decision making for management of medical issues. History and medications reviewed. Epic updated as needed Refills and/or prescriptions taken care of and meds adjusted as indicated after reviewed history, exam and labs. Health Maintenance reviewed. Updated record and/or ordered tests as recorded. Encouraged on efforts at healthy diet and regular exercise and adequate sleep. Continue present meds.Continue present management.Further evaluation and treatment as indicated. Nevin Marquez MD documented in this encounterCenterville06-02-2023 Miscellaneous Notes* Telephone Encounter - Oriana Black LPN - 02/17/2023 8:27 AM EDT Patient notified. Paperwork faxed to [facility]. * Telephone Encounter - Krystal Andino APRN.CNP - 02/17/2023 7:54 AM EDT Please let Art know cardiology is ok with his upcoming surgery, he is cleared for the procedure, wewill fax the info to [facility] to let Dr. Fabian know he is okay for the shoulder surgery. Please fax paperwork. Thanks! * Telephone Encounter - Krystal Andino APRN.CLAUDIA - 02/15/2023 7:24 AM EDT Patient had pre-op labs done with [facility], CBC, CMP and hgba1c stable. He sees Dr. Estevez for cardiology. Last seen 01/02/2023. Based on that visit and EKG from that visit are you okay with him having hisup coming ortho procedure? Planning for a left shoulder arthroscopy with subacromial decompression,distal clavicle excision and rotator cuff repair done on 03/22/[address] Fabian at [facility]. documented in this encounterCenterville04-17-2023 History of Present illness Narrative* Emiliana Estevez MD - 01/02/2023 10:21 AM EDT Images from the original note were not included. Emiliana Estevez MD Interventional Cardiology [facility] [address], [place] [address] [phone] Chief Complaint Patient presents with: Established Patient Follow-Up HISTORY OF PRESENT ILLNESS: Mr. Spann is a 77 year old male by office for follow-up prior history of three- vessel coronary artery disease with bypass surgery in the past His bypass surgery consisted of a JEFF to the LAD vein graft to PDA. Hypertensive heart disease on medication Asymptomatic denies chest pain or shortness of breath No signs or symptoms of congestive heart failure Cardiac Risk Factors age (male over 45, female over 55), hyperlipidemia, hypertension, family history of CAD PAST MEDICAL HISTORY Diagnosis Date Abnormal REM sleep REM dependent ALFONSO CAD (coronary artery disease) Diarrhea 05/11/2005 Diarrhea Enthesopathy of hip region 05/11/2005 Esophageal reflux 05/11/2005 Hemorrhage of gastrointestinal tract, unspecified 05/11/2005 Intestinal infection due to campylobacter 05/11/2005 Migraine without aura, without mention of intractable migraine without mention of status migrainosus 05/11/2005 Propranolol effective for prevention Nocturnal hypoxemia Diagnosed on PSG Primary hypertension 05/11/2005 PUD (peptic ulcer disease) 1968 conservative tx while in service Pure hypercholesterolemia 05/11/2005 Sciatica 05/11/2005 PAST SURGICAL HISTORY Procedure Laterality Date APPENDECTOMY CABG (3) VEIN GRAFTS & ARTERIAL GRAFT(S) 10/25/2021 CHOLECYSTECTOMY COLONOSCOPY FLX DX W/COLLJ SPEC WHEN PFRMD 01/29/2001 Colonoscopy COLONOSCOPY FLX DX W/COLLJ SPEC WHEN PFRMD 03/26/2018 Colonoscopy COLONOSCOPY W/BIOPSY SINGLE/MULTIPLE 05/16/2008 ESOPHAGOGASTRODUODENOSCOPY TRANSORAL DIAGNOSTIC 03/26/2018 EGD ESOPHAGOSCOPY FLEX BALLOON DILAT <30 MM DIAM 04/12/2006 Esophageal dilatation PAST SURGICAL HISTORY OF 1999 hemorrhoidectomy PAST SURGICAL HISTORY OF left footsurgery PAST SURGICAL HISTORY OF 1990 Brad fundoplication PAST SURGICAL HISTORY OF 10/2006 re-do fundoplication Dr Felix PAST SURGICAL HISTORY OF 03/07/2022 Spinal cord stimulator placement RPR 1ST INGUN HRNA AGE 7 YRS/> REDUCIBLE age 17 Hernia repair, inguinal, left FAMILY HISTORY Problem Relation Age of Onset Diabetes Mother Heart Father GA Diabetes Brother Stroke Maternal Grandfather Cancer Paternal Grandfather Social History Tobacco Use Smoking status: Former Packs/day: 1.50 Years: 6.00 Pack years: 9.00 Types: Cigarettes Quit date: 09/18/1970 Years since quittin.3 Smokeless tobacco: Never Substance Use Topics Alcohol use: Yes Alcohol/week: 1.7 standard drinks Comment: rarely Drug use: No ALLERGIES Allergen Reactions Barium Sulfate Hives Carafate [Sucralfat* GI Upset worsening of chest pain and IBS symptoms Erythromycin GI Upset only PO is problematic Flomax [Tamsulosin * Hives Penicillins unknown -childhood Medications: Current Outpatient Medications Medication Sig Dispense Refill finasteride (PROSCAR) 5 mg tablet Take 1 tablet by mouth once daily. 90 tablet 3 metFORMIN ER (GLUCOPHAGE XR) 500 mg 24 hr tablet TAKE 1 TABLET EVERY DAY WITH BREAKFAST 90 tablet 2 dicyclomine (BENTYL) 20 mg tablet Take 1 tablet by mouth once daily. 90 tablet 3 fluticasone propion-salmeterol (AIRDUO RESPICLICK) 113-14 mcg/actuation breath activated inhaler Inhale 1 Inhalation as instructed twice daily. 3 Each 3 traZODone (DESYREL) 50 mg tablet Take 0.5-1 tablets by mouth daily at bedtime. For insomnia and depression omeprazole (PRILOSEC) 40 mg capsule Take 1 capsule by mouth twice daily. 180 capsule 3 propranolol ER (INDERAL LA) 120 mg 24 hr capsule Take 1 capsule by mouth once daily. 90 capsule 3 lamoTRIgine (LAMICTAL) 100 mg tablet Take 1 tablet by mouth once daily. 90 tablet 1 losartan (COZAAR) 50 mg tablet TAKE 1 TABLET TWICE DAILY 180 tablet 3 fluticasone (FLONASE) 50 mcg/actuation nasal spray Use 2 Sprays in each nostril once daily as needed. 3 Each 3 featfb-ciwaftsv-ngcvqzo (CREON 36) 36,000-114,000- 180,000 unit delayed release capsule Take 2 capsules by mouth three times daily with meals. chlorpheniramine (CHLORTRIMETON) 4 mg tablet Take 4 mg by mouth every 6 hours as needed. HYDROcodone-acetaminophen (NORCO) 5-325 mg per tablet Take 1 tablet by mouth as directed. rosuvastatin (CRESTOR) 20 mg tablet Take 1 tablet by mouth daily at bedtime. 90 tablet 3 aspirin 81 mg chewable tablet Take 1 tablet by mouth once daily. 30 tablet 0 ondansetron (ZOFRAN) 4 mg tablet Take 1 tablet by mouth every 8 hours as needed for nausea/vomiting. 30 tablet 3 Blood-Glucose Meter 1 Device as directed. Test Three times a day. Before breakfast, lunch and before bedtime. 1 Each 0 Blood Glucose Control, Normal soln 1 Ampule as directed. 1 Each 0 blood sugar diagnostic test strip Use with blood glucose test 3 times daily, Insulin Dep? No 300 Strip 5 Lancets lancets Use with blood glucose test 3 times daily. Insulin Dep? No 300 Each 5 alcohol swabs Use with blood glucose test 3 times daily. Insulin Dep? No 300 Each 5 docusate sodium (COLACE) 100 mg capsule Take 2 tablets by mouth once daily. methylcellulose (CITRUCEL ORAL) Take by mouth once daily. ipratropium 20 mcg-albuterol 100 mcg (COMBIVENT RESPIMAT) 20-100 mcg/actuation inhaler Inhale 1 Puff as instructed every 6 hours as needed. 4 g 11 promethazine (PHENERGAN) 25 mg tablet Take 1 tablet by mouth every 8 hours as needed. FOR NAUSEA 10tablet 1 albuterol HFA (VENTOLIN HFA) 90 mcg/actuation inhaler Inhale 2 Puffs as instructed every 4 hours asneeded for Wheezing/Shortness of Breath. 1 Inhaler 3 calcium citrate/vitamin d3(CITRACAL + D 315 MG-200 UNIT TAB) Take one(1) tablet two(2) times daily.0 Ascorbic Acid (VITAMIN C) 1,000 mg ORAL Tab Take one(1) tablet daily. 0 Current Facility-Administered Medications Medication Dose Route Frequency Provider Last Rate Last Admin acetaminophen 650 mg tab(s) (TYLENOL) 650 mg ORAL q 6 H PRN Berto Renteria APRN.[employer] metoclopramide HCl 10 mg tab(s) (REGLAN) 10 mg ORAL PRN Nevin Marquez MD ondansetron 4 mg tab(s) (ZOFRAN) 4 mg ORAL PRN Nevin Marquez MD Review of Systems Constitutional: Negative for chills, diaphoresis, fever, malaise/fatigue and weight loss. HENT: Negative for congestion, ear discharge, ear pain, hearing loss, nosebleeds, sinus pain, sore throat and tinnitus. Eyes: Negative for blurred vision, double vision, photophobia, pain, discharge and redness. Respiratory: Negative for cough, hemoptysis, sputum production, shortness of breath, wheezing and stridor. Cardiovascular: Negative for chest pain, palpitations, orthopnea, claudication, leg swelling and PND. Gastrointestinal: Negative for abdominal pain, blood in stool, constipation, diarrhea, heartburn, melena, nausea and vomiting. Genitourinary: Negative for dysuria, flank pain, frequency, hematuria and urgency. Musculoskeletal: Negative for back pain, falls, joint pain, myalgias and neck pain. Skin: Negative for itching and rash. Neurological: Negative for dizziness, tingling, tremors, sensory change, speech change, focal weakness, seizures, loss of consciousness, weakness and headaches. Endo/Heme/Allergies: Negative for environmental allergies and polydipsia. Does not bruise/bleed easily. Psychiatric/Behavioral: Negative for depression, hallucinations, memory loss, substance abuse and suicidal ideas. The patient is not nervous/anxious and does not have insomnia. Physical Examination: Vitals:BP 160/100 Pulse 64 Wt 187 lb (84.8kg) BP w/Orthostatic Vitals Date and Time Orthostatic BP Orthostatic Pulse BP Pulse BP Position BP Site BP Cuff Size 01/02/23 1005 -- -- 160/100 64 Sitting Right Arm Regular Adult Last 2 Encounter Wt Readings: Date: Wt: 01/02/2023 84.8 kg (187 lb) 12/13/2022 84.4 kg (186 lb) Physical Exam Constitutional: General: He is not in acute distress. Appearance: He is not diaphoretic. HENT: Head: Normocephalic and atraumatic. Right Ear: External ear normal. Left Ear: External ear normal. Nose: Nose normal. Mouth/Throat: Mouth: Mucous membranes are moist. Eyes: General: Right eye: No discharge. Left eye: No discharge. Conjunctiva/sclera: Conjunctivae normal. Pupils: Pupils are equal, round, and reactive to light. Cardiovascular: Rate and Rhythm: Normal rate and regular rhythm. Heart sounds: Normal heart sounds, S1 normal and S2 normal. No murmur heard. No friction rub. No gallop. No S3 or S4 sounds. Pulmonary: Effort: Pulmonary effort is normal. No respiratory distress. Breath sounds: Normal breath sounds. No wheezing or rales. Chest: Chest wall: No tenderness. Abdominal: General: Abdomen is flat. Palpations: Abdomen is soft. Musculoskeletal: General: Normal range of motion. Cervical back: Normal range of motion and neck supple. Skin: General: Skin is warm and dry. Neurological: Mental Status: He is alert and oriented to person, place, and time. Psychiatric: Mood and Affect: Mood normal. Thought Content: Thought content normal. Pertinent Labs: CBC: Hemoglobin (g/dL) Date Value 11/17/2022 13.8 08/11/2021 12.9 Hematocrit (%) Date Value 11/17/2022 39.1 08/11/2021 39.5 WBC (k/uL) Date Value 11/17/2022 4.32 08/11/2021 4.26 Platelet Count (k/uL) Date Value 11/17/2022 251 08/11/2021 280 BMP: Glucose (mg/dL) Date Value 11/17/2022 110 08/11/2021 102 Potassium (mmol/L) Date Value 11/17/2022 4.5 08/11/2021 4.2 Sodium (mmol/L) Date Value 11/17/2022 133 08/11/2021 140 Chloride (mmol/L) Date Value 11/17/2022 95 08/11/2021 101 CO2 (mmol/L) Date Value 11/17/2022 28 08/11/2021 29 Creatinine (mg/dL) Date Value 11/17/2022 0.97 08/11/2021 1.07 BUN (mg/dL) Date Value 11/17/2022 14 08/11/2021 22 Anion Gap (mmol/L) Date Value 11/17/2022 10 08/11/2021 10 Calcium (mg/dL) Date Value 08/11/2021 10.0 Calcium, Total (mg/dL) Date Value 11/17/2022 9.9 INR: Lipid Profile: Cholesterol, Total Date Value Ref Range Status 11/17/2022 136 <200 mg/dL Final Comment: <200 mg/dL, Desirable 200-239 mg/dL, Borderline high >239 mg/dL, High HDL Cholesterol Date Value Ref Range Status 11/17/2022 57 >39 mg/dL Final Comment: 40-59 mg/dL, Acceptable >59 mg/dL, High: Negative risk factor for coronary heart disease <40 mg/dL, Low: Positive risk factor for coronary heart disease LDL Cholesterol Date Value Ref Range Status 11/17/2022 62 <100 mg/dL Final Comment: <100 mg/dL, Optimal 100-129 mg/dL, Near optimal/above optimal 130-159 mg/dL, Borderline high 160-189 mg/dL, High >189 mg/dL, Very high Secondary prevention optimal LDL Cholesterol levels are recommended to be < 70 mg/dL Triglyceride Date Value Ref Range Status 11/17/2022 84 <150 mg/dL Final Comment: <150 mg/dL, Normal 150-199 mg/dL, Borderline high 200-499 mg/dL, High >499 mg/dL, Very high Hemoglobin A1C: No results found for: HGBA1C TSH: No results found for: TSHREFL Prior Cardiac Testing EKG Assessment and Plan: 77 years old gentleman with prior history of coronary artery disease and bypass surgery Coronary artery disease Status bypass surgery Patient asymptomatic Good medical therapy 2. Hypertensive heart disease Blood pressures in the office slightly elevated but home blood pressure is 130/80 Continue with the same blood pressure medications Follow up planning: ONE YEAR Electronically signed by Emiliana Estevez MD on January 02, 2023, 10:21 AM The above note was partially created using a dictation recognition software. A reasonable attempt has been made to correct any errors. documented in this encounterCenterville04-10-2023 Miscellaneous Notes* Telephone Encounter - Rekha Rodriguez LPN - 12/26/2022 11:30 AM EDT Rec'd fax from Dr. Fabian's office. He is recommending left shoulder arthroscopy with subacromial decompression,distal clavicle excision and rotator cuff repair. Not date set at this time. Called pt to arrange pre op clearance appt. He reports Dr. Fabian is wanting pt to have an EMG first before surgery can be completed. The EMG is not arranged yet. Dr. Fabian's office will be arranging this. Pt will call back when he has EMG completed and surgery date can be set up. documented in this encounterCenterville03-20-2023 Miscellaneous Notes* Telephone Encounter - Ana Olea LPN - 12/05/2022 4:55 PM EDT Patient has been identified by name and date of : Yes Patient phones for refill(s): Requested Prescriptions Pending Prescriptions Disp Refills metFORMIN ER (GLUCOPHAGE XR) 500 mg 24 hr tablet [Pharmacy Med Name: METFORMIN HYDROCHLORIDE ER 500MG Tablet Extended Release 24 Hour] 90 tablet 0 Sig: TAKE 1 TABLET EVERY DAY WITH BREAKFAST Date of last office visit in primary care: 11/15/2022 3 month follow-up: 02/21/2023 Last 2 Encounter Wt Readings: Date: Wt: 11/15/2022 83 kg (183 lb) 08/16/2022 81.2 kg (179 lb) Previous labs/tests for medication: Diabetes: Hemoglobin A1C (%) Date Value 11/17/2022 5.5 05/24/2022 5.7 04/06/2021 5.7 11/09/2020 5.6 Please advise. Thank you. Ana Olea LPN documented in this encounterCenterville03-09-2023 Miscellaneous Notes* Telephone Encounter - Grecia Larios LPN - 11/24/2022 3:34 PM EST Spoke with patient. Patient explains that the pharmacy did call the patient with the cost but when he talked to them they made him believe the cost was expensive because he hadn't made his deductibleso okay them to send it. Found out when he got it was the inhaler not the nasal spray. He spoke to them again and they are going to send him a bag/label to send inhalers back and we just need to sendin prescription for the nasal spray. I spoke to the pharmacy and patient did have a current prescription with them with refills. Prescription was process and he should receive it in 5-7 days. There is a note in there system that wrong medication was sent and processing label for return. Patient notified. * Telephone Encounter - Nevin Marquez MD - 11/23/2022 7:37 PM EST Flonase RX was already sent back in July and should have had refills at [facility] for him to get. Had sent the inhaler with fluticason-salmeterol thinking it was the generic less expensive inhaler that is available now with the expectation that the pharmacy would tell him how much it would cost before he agreed to fill it. So sounds like insurance sent without his okay, or he meant to okay nosespray and the pharmacy filled the inhaler instead. Let me know if something I can do to remedy the situation. * Telephone Encounter - Daniela Alejandro LPN - 11/23/2022 12:41 PM EST Patient calling asking why he was prescribed Fluticasone-Salmeterol inhaler? He said cost him over 300 hundred dollars and he wanted refill on his generic flonase rx. Patient said he did not rememberPCP saying he was starting new rx, he just got the rx in the mail today and wants to know, so he can try to get this taken care of with his insurance and mail away pharmacy. Please advise documented in this encounterCenterville02-28-2023 History of Present illness Narrative* Nevin Marquez MD - 11/15/2022 10:45 AM EST This note was created using [employer]. Subjective Tosha Spann is a 77 year old male. Patient presents with: F/U 3 Month SUBJECTIVE: Tosha Spann is a 77 year old year old gentleman here today for 3 month follow up appointment for review of medical conditions. Gained weight since June. 168 to 177 to 176. Changed diet again--back to more salads. Good cook.Tends to eat more. Usually walks more but hip pain the past 2 weeks hip pain and left foot pain. Shoulder pain starting on left and know right also. Shots tried. Sent to PT but stopped after Megan . Hard to sleep because of shoulder pain. Blood glucose were up to 130s but back down to 107-116. Nocturia 2 to 3 times a night. BPs mostly fine. 120 to 130s. Creon had helped. Took for a month. Too expensive. Will see if can get OTC. PAST MEDICAL HISTORY Diagnosis Date Abnormal REM sleep REM dependent ALFONSO CAD (coronary artery disease) Diarrhea 05/11/2005 Diarrhea Enthesopathy of hip region 05/11/2005 Esophageal reflux 05/11/2005 Hemorrhage of gastrointestinal tract, unspecified 05/11/2005 Intestinal infection due to campylobacter 05/11/2005 Migraine without aura, without mention of intractable migraine without mention of status migrainosus 05/11/2005 Propranolol effective for prevention Nocturnal hypoxemia Diagnosed on PSG Primary hypertension 05/11/2005 PUD (peptic ulcer disease) 1968 conservative tx while in service Pure hypercholesterolemia 05/11/2005 Sciatica 05/11/2005 Current Outpatient Medications Medication Sig omeprazole (PRILOSEC) 40 mg capsule Take 1 capsule by mouth twice daily. propranolol ER (INDERAL LA) 120 mg 24 hr capsule Take 1 capsule by mouth once daily. metFORMIN ER (GLUCOPHAGE XR) 500 mg 24 hr tablet Take 1 tablet by mouth daily with breakfast. lamoTRIgine (LAMICTAL) 100 mg tablet Take 1 tablet by mouth once daily. losartan (COZAAR) 50 mg tablet TAKE 1 TABLET TWICE DAILY dicyclomine (BENTYL) 20 mg tablet Take 1 tablet by mouth once daily. fluticasone (FLONASE) 50 mcg/actuation nasal spray Use 2 Sprays in each nostril once daily as needed. bdtrto-izvhblse-butzmgo (CREON 36) 36,000-114,000- 180,000 unit delayed release capsule Take 2 capsules by mouth three times daily with meals. fluticasone propion-salmeterol (AIRDUO RESPICLICK) 113-14 mcg/actuation breath activated inhaler Inhale 1 Inhalation as instructed twice daily. chlorpheniramine (CHLORTRIMETON) 4 mg tablet Take 4 mg by mouth every 6 hours as needed. HYDROcodone-acetaminophen (NORCO) 5-325 mg per tablet Take 1 tablet by mouth as directed. rosuvastatin (CRESTOR) 20 mg tablet Take 1 tablet by mouth daily at bedtime. aspirin 81 mg chewable tablet Take 1 tablet by mouth once daily. finasteride (PROSCAR) 5 mg tablet Take 1 tablet by mouth once daily. ondansetron (ZOFRAN) 4 mg tablet Take 1 tablet by mouth every 8 hours as needed for nausea/vomiting. melatonin 3 mg tablet Take 1 tablet by mouth at bedtime as needed (insomnia). (Patient not taking: Reported on 07/12/2022) Blood-Glucose Meter 1 Device as directed. Test Three times a day. Before breakfast, lunch and before bedtime. Blood Glucose Control, Normal soln 1 Ampule as directed. blood sugar diagnostic test strip Use with blood glucose test 3 times daily, Insulin Dep? No Lancets lancets Use with blood glucose test 3 times daily. Insulin Dep? No alcohol swabs Use with blood glucose test 3 times daily. Insulin Dep? No docusate sodium (COLACE) 100 mg capsule Take 2 tablets by mouth once daily. methylcellulose (CITRUCEL ORAL) Take by mouth once daily. ipratropium 20 mcg-albuterol 100 mcg (COMBIVENT RESPIMAT) 20-100 mcg/actuation inhaler Inhale 1 Puff as instructed every 6 hours as needed. promethazine (PHENERGAN) 25 mg tablet Take 1 tablet by mouth every 8 hours as needed. FOR NAUSEA albuterol HFA (VENTOLIN HFA) 90 mcg/actuation inhaler Inhale 2 Puffs as instructed every 4 hours asneeded for Wheezing/Shortness of Breath. calcium citrate/vitamin d3(CITRACAL + D 315 MG-200 UNIT TAB) Take one(1) tablet two(2) times daily. Ascorbic Acid (VITAMIN C) 1,000 mg ORAL Tab Take one(1) tablet daily. Current Facility-Administered Medications Medication Dose Route Frequency acetaminophen 650 mg tab(s) (TYLENOL) 650 mg ORAL q 6 H PRN metoclopramide HCl 10 mg tab(s) (REGLAN) 10 mg ORAL PRN ondansetron 4 mg tab(s) (ZOFRAN) 4 mg ORAL PRN Review of Systems Objective BP 136/76 Pulse 69 Resp 18 Wt 83 kg (183 lb) SpO2 96% BMI 27.02 kg/m Physical Exam Vitals reviewed. Constitutional: Appearance: Normal appearance. Eyes: Conjunctiva/sclera: Conjunctivae normal. Cardiovascular: Rate and Rhythm: Normal rate and regular rhythm. Heart sounds: Normal heart sounds. Pulmonary: Effort: Pulmonary effort is normal. Breath sounds: Normal breath sounds. Skin: General: Skin is warm and dry. Neurological: General: No focal deficit present. Mental Status: He is alert and oriented to person, place, and time. Psychiatric: Attention and Perception: Attention and perception normal. Mood and Affect: Affect normal. Mood is depressed. Speech: Speech normal. Behavior: Behavior normal. Thought Content: Thought content normal. Cognition and Memory: Cognition and memory normal. Judgment: Judgment normal. Comments: Affect reactive though noted depressed affect when discussing loss of and trying to get things ready for taxes, etc,. Doing positive things (bought red Jeep; going on trip with son to see [place]) Component Latest Ref Rng & Units 12/13/2021 12/15/2021 05/24/2022 Protein, Total 6.3 - 8.0 g/dL 7.3 Albumin 3.9 - 4.9 g/dL 4.8 Calcium 8.5 - 10.2 mg/dL 9.6 9.5 Bilirubin, Total 0.2 - 1.3 mg/dL 0.7 Alkaline Phosphatase 38 - 113 U/L 35 (L) AST 14 - 40 U/L 21 ALT 10 - 54 U/L 20 Glucose 74 - 99 mg/dL 114 (H) 81 BUN 9 - 24 mg/dL 16 20 Creatinine 0.73 - 1.22 mg/dL 0.85 0.92 Sodium 136 - 144 mmol/L 137 131 (L) Potassium 3.7 - 5.1 mmol/L 4.6 4.7 Chloride 97 - 105 mmol/L 99 95 (L) CO2 22 - 30 mmol/L 28 26 Anion Gap 9 - 18 mmol/L 10 10 eGFR >=60 mL/min/1.73m 91 87 WBC 3.70 - 11.00 k/uL 5.36 RBC 4.20 - 6.00 m/uL 4.33 Hemoglobin 13.0 - 17.0 g/dL 13.2 Hematocrit 39.0 - 51.0 % 40.1 MCV 80.0 - 100.0 fL 92.6 MCH 26.0 - 34.0 pg 30.5 MCHC 30.5 - 36.0 g/dL 32.9 RDW-CV 11.5 - 15.0 % 12.9 Platelet Count 150 - 400 k/uL 345 MPV 9.0 - 12.7 fL 8.5 (L) Absolute nRBC <0.01 k/uL <0.01 Hemoglobin A1C 4.3 - 5.6 % 5.6 5.7 (H) Estimated Average Glucose mg/dL 114 117 PSA <2.60 ng/mL 1.36 PSA, Percent Free % 21 TSH 0.270 - 4.200 mIU/L 1.740 Magnesium 1.7 - 2.3 mg/dL 2.2 PSA Screening <2.60 ng/mL 1.38 Assessment and Plan Encounter Diagnosis ICD-10-CM 1. Primary hypertension I10 COMP METABOLIC PANEL CBC 2. IFG (impaired fasting glucose) R73.01 COMP METABOLIC PANEL HGB A1C Overall doing well based on glucose readings from home. Update labs. Keep working on healthy diet and stay as active as able 3. Pancreatic insufficiency K86.89 Creon effective but too expensive. Plans to try OTC supplement to see if helps. 4. ALFONSO on CPAP G47.33 Z99.89 Consult to sleep medicine at [facility] requested but not sent. ENT recommended see sleep medicine. 5. Psychophysiological insomnia F51.04 traZODone (DESYREL) 50 mg tablet Some better but broken sleep associated with nocturia and shoulder pain plus ALFONSO still are issues 6. Current moderate episode of major depressive disorder, unspecified whether recurrent (HCC) F32.1 Exacerbated by 's this past August.Has good support. Continue present meds and counseling. 7. DDD (degenerative disc disease), cervical M50.30 Increase left hip and leg pain maybe due to this--nerve stimulator may need adjusted again.Will follow up with pain management and ortho 8. BPH with obstruction/lower urinary tract symptoms N40.1 finasteride (PROSCAR) 5 mg tablet N13.8 PSA/PROSTSPECAG SCRN Follow up with Dr. Thomas in November 9. Nocturia more than twice per night R35.1 Discuss with urologist in November 10. Mucopurulent chronic bronchitis (HCC) J41.1 fluticasone propion-salmeterol (AIRDUO RESPICLICK) 113-14 mcg/actuation breath activated inhaler Stable on current meds. Continue inhalers. Combivent prn helps best for exacerbations but expensive 11. Prostate cancer screening Z12.5 PSA/PROSTSPECAG SCRN Lab ordered so can do prior to .appt with urologist in November\. Refill for med given. 12. Encounter for long-term current use of medication Z79.899 COMP METABOLIC PANEL LIPID PANEL BASIC CBC HGB A1C PSA/PROSTSPECAG SCRN MAGNESIUM BLD Above issues addressed with patient. Patient involved in shared decision making for management of medical issues. History and medications reviewed. Epic updated as needed Refills and/or prescriptions taken care of and meds adjusted as indicated after reviewed history, exam and labs. Health Maintenance reviewed. Updated record and/or ordered tests as recorded. Encouraged on efforts at healthy diet and regular exercise and adequate sleep. Further evaluation and treatment as indicated. Nevin Marquez MD documented in this encounter[place]02-07-2023 Miscellaneous Notes* Telephone Encounter - Oriana Black LPN - 10/25/2022 10:07 AM EST Patient has been identified by name and date of : Yes Patient phones for refill(s): Requested Prescriptions Pending Prescriptions Disp Refills omeprazole (PRILOSEC) 40 mg capsule 180 capsule 3 Sig: Take 1 capsule by mouth twice daily. propranolol ER (INDERAL LA) 120 mg 24 hr capsule 90 capsule 3 Sig: Take 1 capsule by mouth once daily. Date of last office visit in primary care: 08/16/22 Next appointment scheduled 11/15/22 Please advise. Thank you. Oriana Black LPN documented in this encounterCenterville02-07-2023 Miscellaneous Notes* Telephone Encounter - Oriana Black LPN - 10/25/2022 10:01 AM EST Patient has been identified by name and date of : Yes Patient phones for refill(s): Requested Prescriptions Pending Prescriptions Disp Refills metFORMIN ER (GLUCOPHAGE XR) 500 mg 24 hr tablet 90 tablet 0 Sig: Take 1 tablet by mouth daily with breakfast. Date of last office visit in primary care: 08/16/22 Next appointment scheduled 11/15/22 Please advise. Thank you. Oriana Black LPN documented in this [facility]02-06-2023 Miscellaneous Notes* Telephone Encounter - Cally Deal LPN - 10/24/2022 10:43 AM EST Patient's request for medication is as follows: Requested Prescriptions Pending Prescriptions Disp Refills losartan (COZAAR) 50 mg tablet [Pharmacy Med Name: LOSARTAN POTASSIUM 50 MG Tablet] 180 tablet 3 Sig: TAKE 1 TABLET TWICE DAILY Last seen 01/03/2022. Next visit 01/02/2023. Prescription(s) as above. Please process accordingly. Cally Deal LPN documented in this encounterCenterville12-22-2022 Miscellaneous Notes* Telephone Encounter - Ana Olea LPN - 09/08/2022 9:28 AM EST Information faxed to [facility]. Ana Olea LPN * Telephone Encounter - Nevin Marquez MD - 09/08/2022 12:07 AM EST Filed order. Make sure ENT who does evaluation and treatment for treatment of upper airway resistance syndrome. * Telephone Encounter - Raina Hebert LPN - 09/06/2022 8:29 AM EST Spoke with patient and upon discussing sleep study results he stated that he stopped wearing the CPAP since the last sleep study really did not indicate that he needed one. He states he has never been 100% sure he ever needed one. Since he stop wearing the CPAP he is not feeling any better or any worse. Still wakes up with a headache, sluggish and feeling tired all day. He decided he would like a referral to ENT to evaluate if other interventions are needed. He is already est at [facility]. Please review and file pending order. * Telephone Encounter - Raina Hebert LPN - 08/31/2022 2:13 PM EST LEFT MESSAGE FOR PATIENT TO CALL OFFICE. * Telephone Encounter - Nevin Marquez MD - 08/31/2022 12:26 PM EST The pulmonologists at [facility] see patients for ALFONSO but not sure how they manage patients who might not need CPAP and need treated for other issues when the problem might be more ENT issue. Okay to start there though and have them refer as needed to ENT, etc. We have Dr. Hensley here in [facility] for sleep medicine (neurologist) also. * Telephone Encounter - Christianne Paulino RN - 08/31/2022 11:28 AM EST Patient calls and states that he would like to see a sleep specialist. Patient asking if he can seeone at [facility]? Please review and advise, Christianne Paulino RN * Telephone Encounter - Rekha Rodriguez LPN - 08/26/2022 3:57 PM EST My chart message to pt. * Telephone Encounter - Nevin Marquez MD - 08/25/2022 5:07 PM EST Interpretation showed that by one set of guidelines, AHI (apnea hypopnea index) fell in normal range but with other set of guidelines, AHI mild consistent with upper airway syndrome and recommended ENT evaluation to see if candidate for treatments ranging from surgery for obstruction if found to dental appliance, etc. More hypopnea episodes in REM sleep. He did not have deep sleep during the test. Could refer to sleep specialist to make formal recommendations for evaluation and treatment. Could refer to ENT if prefers. * Telephone Encounter - Rekha Rodriguez LPN - 08/25/2022 11:55 AM EST Please review sleep study from [facility]. View External Procedure - Sleep Studies [ID [id number]] documented in this encounterCenterville11-29-2022 History of Present illness Narrative* Nevin Marquez MD - 08/16/2022 8:54 AM EST Patient presents with: F/U 6 months SUBJECTIVE: Tosha Spann is a 77 year old year old gentleman here today for 6 month follow up appointment for review of medical conditions. Started on Creon and helped with digestion. But 86 tablets $300 and lasts only 10 days. Was able toget bloating and gas and stool improved. Got samples and helped right away. (Dr. Friend) Did find aprogram to help with cost of med. Noted skin lesion over SC joint area that looks darker in middle (looks like SK but darker in middle) Rhinorrhea--worse after COVID but started prior. Ran out of Flonase. Trial on Atrovent NS caused sore throat (was effective though). Needs PSG with split study at [facility] but was not able to do since needed a current Face 2 Face appointment addressing the need for the sleep study. Still with daytime sleepiness. Falls asleep easily during daytime. Also noted had prior PSG that showed mild ALFONSO in 2018 and BMI has changed (has fluctuated from 28 down to 24 since 2018). Thought was mild, has had nocturnal hypoxemia. Need to re-evaluate need for CPAP as well as titrate during the study if severe due to change in BMI. Still using CPAP but still with daytime sleepiness and the sleep studies were home studies for the current CPAP settings. Ongoing stressors noted. Sugars at home 110s at highest in AM. Once day a 131. PAST MEDICAL HISTORY Diagnosis Date Abnormal REM sleep REM dependent ALFONSO CAD (coronary artery disease) Diarrhea 05/11/2005 Diarrhea Enthesopathy of hip region 05/11/2005 Esophageal reflux 05/11/2005 Hemorrhage of gastrointestinal tract, unspecified 05/11/2005 Intestinal infection due to campylobacter 05/11/2005 Migraine without aura, without mention of intractable migraine without mention of status migrainosus 05/11/2005 Propranolol effective for prevention Nocturnal hypoxemia Diagnosed on PSG Primary hypertension 05/11/2005 PUD (peptic ulcer disease) 1968 conservative tx while in service Pure hypercholesterolemia 05/11/2005 Sciatica 05/11/2005 Current Outpatient Medications Medication Sig fluticasone propion-salmeterol (AIRDUO RESPICLICK) 113-14 mcg/actuation breath activated inhaler Inhale 1 Inhalation as instructed twice daily. chlorpheniramine (CHLORTRIMETON) 4 mg tablet Take 4 mg by mouth every 6 hours as needed. metFORMIN ER (GLUCOPHAGE XR) 500 mg 24 hr tablet Take 1 tablet by mouth daily with breakfast. lamoTRIgine (LAMICTAL) 100 mg tablet Take 1 tablet by mouth once daily. HYDROcodone-acetaminophen (NORCO) 5-325 mg per tablet Take 1 tablet by mouth as directed. rosuvastatin (CRESTOR) 20 mg tablet Take 1 tablet by mouth daily at bedtime. fluticasone (FLONASE) 50 mcg/actuation nasal spray Use 2 Sprays in each nostril once daily as needed. aspirin 81 mg chewable tablet Take 1 tablet by mouth once daily. finasteride (PROSCAR) 5 mg tablet Take 1 tablet by mouth once daily. omeprazole (PRILOSEC) 40 mg capsule Take 1 capsule by mouth twice daily. ondansetron (ZOFRAN) 4 mg tablet Take 1 tablet by mouth every 8 hours as needed for nausea/vomiting. propranolol ER (INDERAL LA) 120 mg 24 hr capsule Take 1 capsule by mouth once daily. losartan (COZAAR) 50 mg tablet Take 0.5 tablets by mouth twice daily. melatonin 3 mg tablet Take 1 tablet by mouth at bedtime as needed (insomnia). (Patient not taking: Reported on 07/12/2022) Blood-Glucose Meter 1 Device as directed. Test Three times a day. Before breakfast, lunch and before bedtime. Blood Glucose Control, Normal soln 1 Ampule as directed. blood sugar diagnostic test strip Use with blood glucose test 3 times daily, Insulin Dep? No Lancets lancets Use with blood glucose test 3 times daily. Insulin Dep? No alcohol swabs Use with blood glucose test 3 times daily. Insulin Dep? No docusate sodium (COLACE) 100 mg capsule Take 2 tablets by mouth once daily. methylcellulose (CITRUCEL ORAL) Take by mouth once daily. ipratropium 20 mcg-albuterol 100 mcg (COMBIVENT RESPIMAT) 20-100 mcg/actuation inhaler Inhale 1 Puff as instructed every 6 hours as needed. promethazine (PHENERGAN) 25 mg tablet Take 1 tablet by mouth every 8 hours as needed. FOR NAUSEA albuterol HFA (VENTOLIN HFA) 90 mcg/actuation inhaler Inhale 2 Puffs as instructed every 4 hours asneeded for Wheezing/Shortness of Breath. calcium citrate/vitamin d3(CITRACAL + D 315 MG-200 UNIT TAB) Take one(1) tablet two(2) times daily. Ascorbic Acid (VITAMIN C) 1,000 mg ORAL Tab Take one(1) tablet daily. Current Facility-Administered Medications Medication Dose Route Frequency acetaminophen 650 mg tab(s) (TYLENOL) 650 mg ORAL q 6 H PRN metoclopramide HCl 10 mg tab(s) (REGLAN) 10 mg ORAL PRN ondansetron 4 mg tab(s) (ZOFRAN) 4 mg ORAL PRN OBJECTIVE: BP 132/82 Pulse 70 Wt 81.2 kg (179 lb) SpO2 97% BMI 26.43 kg/m Patient is alert, oriented times 3, no apparent distress, affect is bright, reactive. PHYSICAL EXAM: General Appearance: Well appearing, alert, in no acute distress, well-hydrated, well nourished. andmood depressed but affect reactive. Head: Normocephalic, no masses, lesions, tenderness or abnormalities. Eyes: Anicteric sclera. Pupils are equally round and reactive to light. Extraocular movements are intact. . Lungs: Lungs clear to auscultation. No wheezing, rhonchi, rales.. Extremities: No deformities, edema, skin discoloration, clubbing or cyanosis. Good capillary refill. Right wrist cyst--appears to be ganglion or synovial--lies over radial artery and surrounding veins. (when ortho tried to get drained, apparently hit radial artery) Neurologic: Oriented X 3, no focal deficits. ASSESSMENT AND PLAN: ASSESSMENT/PLAN: 1. ALFONSO on CPAP - ICD9: 327.23, V46.8, ICD10: G47.33, Z99.89 (primary diagnosis) Needs PSG with split study given history of ALFONSO on CPAP but still with daytime sleepiness and fatigue and history of drop in BMI since last had home sleep studies. Face to Face done to day to meet criteria for insurance to pay for study. Fax this progress note to [facility] sleep lab. 2. Chronic rhinitis - ICD9: 472.0, ICD10: J31.0 Resume Flonase; can try Atrovent nasal spray intermittently to see if adequate without adverse effects off sore throat. 3. Pancreatic insufficiency - ICD9: 577.8, ICD10: K86.89 Responded to [facility] supplement samples from Dr. Mak. Will see if able to get covered with program through [employer]. 4. IFG (impaired fasting glucose) - ICD9: 790.21, ICD10: R73.01 Will see how does off metformin. If sugars stay down, then does not need to resume metformin. 5. Witnessed episode of apnea - ICD9: 786.03, ICD10: R06.81 Need for PSG split study as noted above 6. Psychophysiological insomnia - ICD9: 307.42, ICD10: F51.04 7. Current moderate episode of major depressive disorder, unspecified whether recurrent (HCC) - ICD9: 296.22, ICD10: F32.1 Ongoing issues with stressors and depression symptoms with being in memory care for dementia. Financial strain as well as strain on time and emotions noted. Continues to follow with counseling. Done with working with Kary Collazo. Continue present meds. Nevin Marquez MD documented in this encounterCent[place]11-28-2022 Miscellaneous Notes* Telephone Encounter - Sheryl Pat - 08/15/2022 12:13 PM EST 90 day supply sent 05/02/22 with 1 refill ordered documented in this encounterCenterville11-03-2022 Miscellaneous Notes* Telephone Encounter - Nataly Ibarra RN - 07/21/2022 4:42 PM EDT Pt called and is notified of providers message and instructions. Pt voices understanding. Nataly Ibarra RN * Telephone Encounter - Nevin Marquez MD - 07/21/2022 4:21 PM EDT Since COVID symptoms mostly resolved and infection was 3 weeks ago, and acute sore throat issues improved with antibiotic that has been on more than 24 to 48 hours by now, not considered to be contagious. Usual universal precautions to prevent spread of any illness with normal handwashing and covering coughs, etc. So as long as no fevers without treating with tylenol or NSAIDs, may visit his . In his case, also take precautions to keep from catching any other illnesses from the residents there. * Telephone Encounter - Nataly Ibarra RN - 07/21/2022 10:26 AM EDT Pt called and is notified of providers message and instructions. Pt voices understanding. Pt reports he had Covid 3 weeks ago on 06/26 and this illness started 07/14. He states the vertigo started Monday, but is gone now. Pt reports he is still on the antibiotic. He states the fatigue is still hanging on. He said he told himself he was going to get up this morning, but couldn't make himself get up. Pt is asking if provider thinks he is still contagious. He reports his has dementia and is nigel [facility] and he hasn't seen her in a week and wanted to know if he would be able to go see her. Pt knows to call back in if he is still fatigued in a couple of days and provider will order labs for him. Please call and advise. Nataly Ibarra RN * Telephone Encounter - Nataly Ibarra RN - 07/21/2022 9:51 AM EDT Called and left a voicemail for the Patient to call back and ask for a nurse to receive the providers message. Nataly Ibarra, RN * Telephone Encounter - Nevin Marquez MD - 07/20/2022 7:43 PM EDT As severe as the illness has been with the severe pharyngitis and pustules plus vertigo, may still have fatigue and body aches related to inflammatory response. Is he having fevers? If not getting better from the fatigue and body ache standpoint over the next couple day, can recheck CBC and CMP (noted that sodium was a little low at 133 and increased neutrophils due to illness) and also check a CK (muscle enzyme). Make sure to get enough electrolytes to keep sodium from getting too low (can cause fatigue and headaches) * Telephone Encounter - Raina Hebert LPN - 07/19/2022 2:15 PM EDT Patient calls to state that he did go to [facility] ER on 07/16/22 for sore throat with white pustules andsevere vertigo. Labs draw and throat culture was completed which was negative for strep. He was started on clindamycin 2 capsules 4 times a day that he started on Monday. The pustules in the back of his throat is gone but still at times has trouble swallowing. He complains of still having body aches, cough at times, headache and slight sore throat. Has no energy. Patient questions after treatment with levaquin starting 07/14/22 and 3 days of clindamycin should he not at least be feeling somewhat better? I just feel like I have been run over Please advise. documented in this encounterCenterville10-27-2022 Miscellaneous Notes* Telephone Encounter - Nevin Marquez MD - 07/14/2022 12:55 PM EDT Patient with signs and symptoms of acute bacterial pharyngitis. Allergies noted Levaquin has been tolerated well and effective. 66 documented in this encounterCenterville10-25-2022 Miscellaneous Notes* Telephone Encounter - Sharad Brennan APRN.CNS - 07/12/2022 5:14 PM EDT He is not taking dicyclomine currently, will d/c from med list. * Telephone Encounter - Raheem Pacheco RN - 07/12/2022 2:51 PM EDT [facility]- reports they have Rx's for patient that are duplicate therapy. Fesoterodine 8 mg and dicyclomine 20 mg. Reports they have a Dr. Martha Plummer prescribed the fesoterodine (patient filled at a local pharmacy on 06-14-22), and Dr. Marquez prescribed the dicyclomine. Asking for clarification if patient should be taking both of these. Please call [phone] with NPI or NOEMI number, or fax clarification with NPI or NOEMI number to fax # [phone]. documented in this encounterCenterville10-25-2022 History of Present illness Narrative* Cipriano Thomas Jr., MD - 07/12/2022 3:19 PM EDT ESTABLISHED PATIENT OFFICE VISIT HPI Tosha Spann is a 77 year old male who presents previous patient of dr. Matthews. Ho bph. On finasteride. luts controlled. Psa one year ago was 1.32. now is 2.38 12/14/21 - doing ok. luts controlled on finasteride. Weaker stream. No recent psa done. Had recent cabg. Recovering from that ok. 05/03/22 - still on finasteride. However luts worse. Co frequency/urgency. Does not tolerate flomax.Most recent psa 1.36 this year. Options discussed including anti-cholinergic vs. Cysto. 06/14/22 - no help with oxybutynin. However was only on for a few days because thought it was causing severe back pain. Options rediscussed including trying another anticholinergic vs. Cysto 07/12/22 - tried to add in toviaz did not tolerate. Made him very drowsy. Rediscussed cysto. He hashad multiple surgeries this year and would like to hold for now. LAB: Creatinine Date Value Ref Range Status 05/24/2022 0.92 0.73 - 1.22 mg/dL Final PSA (ng/mL) Date Value 12/15/2021 1.36 11/09/2020 2.38 04/07/2020 1.32 01/30/2019 1.45 12/12/2016 3.60 01/20/2015 2.37 08/11/2014 2.38 06/19/2013 2.81 05/13/2013 5.39 01/14/2013 3.29 04/30/2012 3.19 PSA Screening (ng/mL) Date Value 12/15/2021 1.38 Glucose, Urine Date Value 10/13/2021 Negative 02/21/2018 Negative mg/dL Bilirubin, Urine (no units) Date Value 10/13/2021 Negative 02/21/2018 Negative Ketones, Urine (no units) Date Value 10/13/2021 Negative 02/21/2018 Negative Specific [place], Ur (no units) Date Value 10/13/2021 1.013 02/21/2018 1.012 Hemoglobin/Blood,Ur Date Value 10/13/2021 Negative 02/21/2018 Negative pH, Urine (no units) Date Value 10/13/2021 6.5 02/21/2018 6.0 Protein, Urine Date Value 10/13/2021 Negative 02/21/2018 Negative mg/dL Urobilinogen, Urine (EU) Date Value 05/01/2012 0.2N Nitrites (no units) Date Value 10/13/2021 Negative 02/21/2018 Negative Leukocytes (no units) Date Value 05/01/2012 NEG WBC, Urine Date Value 10/13/2021 0-5 /HPF 02/21/2018 0-5 /HPF Color/Appearance (comment:) Date Value 05/01/2012 YELLOW/CLEAR MEDICATIONS: chlorpheniramine (CHLORTRIMETON) 4 mg tablet^Take 4 mg by mouth every 6 hours as needed.^Disp: ^Rfl: fluticasone (FLOVENT) 110 mcg/actuation inhaler^Inhale 2 Puffs as instructed twice daily. Shake well before use. Rinse mouth after use. As directed^Disp: 1 Each^Rfl: 5 fluticasone-salmeterol (ADVAIR DISKUS) 100-50 mcg/dose inhaler^Inhale 1 Puff as instructed twice daily. Rinse mouth out after use with water.^Disp: 1 Each^Rfl: 2 metFORMIN ER (GLUCOPHAGE XR) 500 mg 24 hr tablet^Take 1 tablet by mouth daily with breakfast.^Disp:90 tablet^Rfl: 0 lamoTRIgine (LAMICTAL) 100 mg tablet^Take 1 tablet by mouth once daily.^Disp: 90 tablet^Rfl: 1 HYDROcodone-acetaminophen (NORCO) 5-325 mg per tablet^Take 1 tablet by mouth as directed.^Disp: ^Rfl: rosuvastatin (CRESTOR) 20 mg tablet^Take 1 tablet by mouth daily at bedtime.^Disp: 90 tablet^Rfl: 3 fluticasone (FLONASE) 50 mcg/actuation nasal spray^Use 2 Sprays in each nostril once daily as needed.^Disp: 1 Each^Rfl: 5 aspirin 81 mg chewable tablet^Take 1 tablet by mouth once daily.^Disp: 30 tablet^Rfl: 0 dicyclomine (BENTYL) 20 mg tablet^Take 1 tablet by mouth once daily.^Disp: 90 tablet^Rfl: 3 finasteride (PROSCAR) 5 mg tablet^Take 1 tablet by mouth once daily.^Disp: 90 tablet^Rfl: 3 omeprazole (PRILOSEC) 40 mg capsule^Take 1 capsule by mouth twice daily.^Disp: 180 capsule^Rfl: 3 ondansetron (ZOFRAN) 4 mg tablet^Take 1 tablet by mouth every 8 hours as needed for nausea/vomiting.^Disp: 30 tablet^Rfl: 3 propranolol ER (INDERAL LA) 120 mg 24 hr capsule^Take 1 capsule by mouth once daily.^Disp: 90 capsule^Rfl: 3 losartan (COZAAR) 50 mg tablet^Take 0.5 tablets by mouth twice daily.^Disp: 180 tablet^Rfl: 3 Blood-Glucose Meter^1 Device as directed. Test Three times a day. Before breakfast, lunch and before bedtime.^Disp: 1 Each^Rfl: 0 Blood Glucose Control, Normal soln^1 Ampule as directed.^Disp: 1 Each^Rfl: 0 blood sugar diagnostic test strip^Use with blood glucose test 3 times daily, Insulin Dep? No^Disp: 300 Strip^Rfl: 5 Lancets lancets^Use with blood glucose test 3 times daily. Insulin Dep? No^Disp: 300 Each^Rfl: 5 alcohol swabs^Use with blood glucose test 3 times daily. Insulin Dep? No^Disp: 300 Each^Rfl: 5 docusate sodium (COLACE) 100 mg capsule^Take 2 tablets by mouth once daily. ^Disp: ^Rfl: methylcellulose (CITRUCEL ORAL)^Take by mouth once daily.^Disp: ^Rfl: ipratropium 20 mcg-albuterol 100 mcg (COMBIVENT RESPIMAT) 20-100 mcg/actuation inhaler^Inhale 1 Puff as instructed every 6 hours as needed.^Disp: 4 g^Rfl: 11 promethazine (PHENERGAN) 25 mg tablet^Take 1 tablet by mouth every 8 hours as needed. FOR NAUSEA^Disp: 10 tablet^Rfl: 1 albuterol HFA (VENTOLIN HFA) 90 mcg/actuation inhaler^Inhale 2 Puffs as instructed every 4 hours asneeded for Wheezing/Shortness of Breath.^Disp: 1 Inhaler^Rfl: 3 calcium citrate/vitamin d3(CITRACAL + D 315 MG-200 UNIT TAB)^Take one(1) tablet two(2) times daily.^Disp: ^Rfl: 0 Ascorbic Acid (VITAMIN C) 1,000 mg ORAL Tab^Take one(1) tablet daily.^Disp: ^Rfl: 0 melatonin 3 mg tablet^Take 1 tablet by mouth at bedtime as needed (insomnia).^Disp: ^Rfl: (Patient not taking: Reported on 07/12/2022) REVIEW OF SYSTEMS Review of Systems Constitutional: Negative. Respiratory: Negative. Cardiovascular: Negative. Gastrointestinal: Negative. Genitourinary: Negative. Skin: Negative. Neurological: Negative. Psychiatric/Behavioral: Negative. HISTORIES PAST MEDICAL HISTORY Diagnosis Date Abnormal REM sleep REM dependent ALFONSO CAD (coronary artery disease) Diarrhea 05/11/2005 Diarrhea Enthesopathy of hip region 05/11/2005 Esophageal reflux 05/11/2005 Hemorrhage of gastrointestinal tract, unspecified 05/11/2005 Intestinal infection due to campylobacter 05/11/2005 Migraine without aura, without mention of intractable migraine without mention of status migrainosus 05/11/2005 Propranolol effective for prevention Nocturnal hypoxemia Diagnosed on PSG Primary hypertension 05/11/2005 PUD (peptic ulcer disease) 1968 conservative tx while in service Pure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 without medication? I have not taken it the past two nights and don't notice a difference but I don't want to cold turkey stop the medication if Dr. Marquez doesn't recommend that. Patient recently had back surgery and is taking hydrocodone for pain with Melatonin at bedtime and reports that has been more effective for sleep (meaning when he wakes up he doesn't feel groggy like he does with trazodone). 3. PRESCRIBING HCP: Dr. Marquez. 4. SYMPTOMS: Patient reports that when he takes medication it makes him groggy and he would prefer not to feel that way. 5. SEVERITY: Moderate Protocols used: MEDICATION QUESTION [id number] documented in this encounterCenterville05-23-2022 Instructions* Patient Instructions* Kary Collazo APRN.CNP - 02/07/2022 11:04 AM EDT Cha España, It was good to talk with you today. Below is a summary of the plan that we discussed during your appointment for reference. Of course, if you have any questions or concerns do not hesitate to reach out to me via a message or call. Kary Mora APRN.CNP PLAN AND FOLLOW UP: YOU SHOULD SEEK IMMEDIATE MEDICAL ATTENTION AT THE NEAREST EMERGENCY DEPARTMENT OR BY CALLING 911, IF ANY OF THE FOLLOWING OCCURS: - New or worsening thoughts of harming yourself (suicidal thoughts) or others (homicidal thoughts) - Not feeling safe at home or worrying about your ability to remain safe at home If you are having thoughts of harming yourself or others, then you can: - Call the National Suicide Hotline at 3-743-OCSQKYC ( ) or 1-969-922-TALK (2235) - Text 5QTQX wd 632314 Medication Update: 1. Lamictal 100 mg - take 1 tablet once daily. 2. Continue Trazodone at the same dose. Next appointment: --Schedule in 4 to 6 weeks or sooner if needed -- You may call the department appointment line at [phone] to schedule your appointment. -- Please call my nurse Yesy at [phone] or send me a message in [employer] with any questions or concerns between appointments. documented in this encounterCenterville05-23-2022 History of Present illness Narrative* Kary Collazo APRN.CNP - 02/07/2022 10:31 AM EDT Images from the original note were not included. PSYC FOLLOW UP - PSYCHIATRIC PROGRESS NOTE DIAGNOSIS: 1. Adjustment disorder with mixed anxiety and depressed mood GAF: -60-51 Moderate symptoms or moderate difficulty in social, occupational or school functioning. TREATMENT PLAN: 1. Increase Lamictal to address his mood related symptoms. 2. Continue Trazodone at the same dose. 3. Continue individual psychotherapy. 4. Encouraged to attend support group to address his caregiver strain. Has not benefited from support groups in the past. 5. Encouraged to restart exercising when he is able to tolerate as it is a good coping skill for him. 6. Follow up in 4 to 6 weeks. Medication Update: 1. Lamictal 100 mg - take 1 tablet once daily. 2. Continue Trazodone at the same dose. The effects and side effects of all the medications were reviewed in detail with the patient. He isaware of the rash side effect associated with Lamictal. Patient is in agreement with the treatment plan. He is aware to reach out with any questions, concerns, or worsening of symptoms prior to the next appointment. CC: Follow up regarding his mood and caregiver strain. With the patient consent, visit was performed virtually. HPI: Tosha Spann is a 76 year old Male with a history of adjustment disorder presenting today for follow-up. Date of last visit: 12/06/2021 Plan from last visit: 1. Continue Lamictal and trazodone at the same dose. 2. Continue individual psychotherapy weekly. 3. Encouraged patient to engage in coping skills. Today Mr. Spann shares that he has been concerned about his back pain. He has also struggled with left shoulder pain. He is not able to raise his shoulder. He did get approval for back surgery. Due to this, he is not sleeping as well. He takes Hydrocodone, melatonin, and trazodone at night. He does struggle with interrupted sleep. He is not sure if he is up due to pain or worrying about his wifeShirley. Shares that his has had a major health and cognition decline at the assisted living facility the past month. She has started experiencing incontinence. He has been going to visit his daily as he feels guilty if he doesn't. Feels that he has to advocate for his 's well being. He has deepti ched out to Hospice for support. His has lost 50 pounds as she is not eating as well. The staff there have asked the patient if he can come and sit during meal times. Shares that he has been able to tolerate Lamictal without any side effects. Some mornings he has been struggling with getting out of bed. He continues to struggle with fatigue and episode of tearfulness. Has stress related to taking care of his . Hoping that Hospice will provide some respite. He has been seeing his psychologist on a weekly basis. He does get together with his tobacco warehouse manager from latter day once a week. Talks to a friend whose also has dementia for support. Discussed attending support groups but patient does not feel that he benefits from it. He is in agreement to try a higher dose of Lamictal as he has been able to tolerate it without any side effects. He had been walking three days a week before his shoulder pain. Wonders if his shoulder pain was related to some exercises he was doing with his process trainer. He is hoping to restart exercising as that was a beneficial coping skill. Interval Progress: Slightly worse Risks and benefits of the medication, including any black box warnings, were discussed with the patient. Social History: See HPI PATIENT DATA: Generalized Anxiety Disorder Scale (APRIL-7) APRIL - 7 SCORES 11/08/2021 11/29/2021 02/01/2022 APRIL-7 Score 4 1 2 (0-4) minimal anxiety, (5-9) mild anxiety, (10-14) moderate anxiety, (15-21) severe anxiety Patient Health Questionnaire (PHQ-9) PHQ-9 11/08/2021 11/29/2021 02/01/2022 Score 7 8 7 (0-4) minimal depression, (5-9) mild depression, (10-14) moderate depression, (15-19) moderately severe depression, (20-27) severe depression ROS: See HPI General: Negative for fever, malaise, unintentional weight loss HEENT: Negative for recent changes in vision or hearing, no nasal drainage Respiratory: Negative for cough, wheezing or SOB Cardiovascular: Negative for chest pain GI: Negative for nausea, vomiting, change in bowel habits MUSCULOSKELETAL: See HPI SKIN: Negative for rash NEURO: Negative for headaches, seizures, focal neurological deficits All other systems negative. VITAL SIGNS: None obtained due to virtual visit BP Temp Pulse Resp SpO2 MENTAL STATUS EXAMINATION: Appearance: Appropriately groomed, appears stated age Behavior: Appropriately engaged Psychomotor: No psychomotor agitation Cognition Level of Consciousness: Awake and alert. No fluctuation in wakefulness. Orientation: Grossly oriented Memory: Intact Attention/Concentration: Good Fund of Knowledge: Able to demonstrate an awareness of current events. Mood: Sad and depressed Affect: Tearful at times Speech/Language: Appropriate tone, prosody, isabell, phonetics, and syntax Thought Form: Goal-directed. No loosening of associations. Thought Content: No delusions noted or endorsed. Perceptual Disturbances: Did not appear to respond to auditory stimuli. Safety: Suicidal Ideations: No suicidal ideation, intent or plan. Homicidal Ideations: No homicidal ideation, intent or plan. Insight: Appropriate Judgment: Appropriate I spent a total of 38 minutes on the date of the service which included preparing to see the patient, [id number] patient care, completing clinical documentation, and counseling and educating the patient/family/caregiver, ordering medications/labs. Kary Collazo APRN.CLAUDIA February 07, 2022 10:31 AM documented in this encounterCenterville05-05-2022 History of Present illness Narrative* Monserrat Cissekelly HANSEN - 01/20/2022 2:07 PM EDT Patient presents for COVID booster. Denies any problems at this time. Tolerated injection well. Monserrat Pompa LPN documented in this encounterCenterville05-05-2022 Miscellaneous Notes* Telephone Encounter - Rosey Alvarez RN - 01/20/2022 10:40 AM EDT Pt. notified. Voices understanding. Rosey Alvarez RN * Telephone Encounter - Rosey Alvarez RN - 01/20/2022 10:39 AM EDT Images from the original note were not included. Jes Belcher APRN.RESPITE WORKER Merari Vo Ma; [facility] [place]; Emiliana Esetvez MD 19 minutes ago (10:19 AM) He should be taking 20 mg of Crestor daily. He should take once daily at bedtime. He does not need to take BID. I will send 20 mg tablets for a refill to his pharmacy. Thank you! Message text * Telephone Encounter - Merari Vo Ma - 01/20/2022 10:08 AM EDT Patient called in asking for medication clarification. He is taking Crestor 10 mg BID that was prescribed after his bypass on 10/25/2021. The last prescription that he filled was from Dr. Estevez and was Crestor 10 mg every day. Patient is getting low on medication and will need to get a refill soon since he has been taking BID. His question is... 1. Does he need to continue taking Crestor 20 mg per day or can he back down to 10 mg? 2. If continuing 20 mg per day, could he have refill of Crestor 20 mg tablets and only have to take1 pill? Confirmed [facility]. documented in this encounterCenterville04-22-2022 Miscellaneous Notes* Telephone Encounter - Bruce Reis Ma - 01/07/2022 8:25 AM EDT HARINDER: 11/05/2021 Last refill: 11/01/2021 QTY: 90 Refills: 0 Patient's request for medication is as follows: Pending Prescriptions Disp Refills METFORMIN ER 500 MG TABLET,EXTENDED RELEASE 24 HR 90 tablet 0 Sig: Take 1 tablet by mouth daily with breakfast. REJI: No Please approve the above prescription(s) to electronically send to pharmacy. Bruce Reis Ma documented in this encounterCenterville04-18-2022 History of Present illness Narrative* Emiliana Estevez MD - 01/03/2022 11:18 AM EDT Images from the original note were not included. Emiliana Estevez MD Interventional Cardiology [address] [place], [place] [id number] Chief Complaint Patient presents with: Established Patient HISTORY OF PRESENT ILLNESS: Mr. 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 he underwent cardiac surgery with open heart consistent with JEFF to the LAD vein graft to the first PDA patient is asymptomatic denies chest pain shortness of breath doing well from a cardiac point On good medical therapy Cardiac Risk Factors age (male over 45, female over 55), hyperlipidemia, hypertension, family history of CAD PAST MEDICAL HISTORY Diagnosis Date Abnormal REM sleep REM dependent ALFONSO CAD (coronary artery disease) Diarrhea 05/11/2005 Diarrhea Enthesopathy of hip region 05/11/2005 Esophageal reflux 05/11/2005 Hemorrhage of gastrointestinal tract, unspecified 05/11/2005 Intestinal infection due to campylobacter 05/11/2005 Migraine without aura, without mention of intractable migraine without mention of status migrainosus 05/11/2005 Propranolol effective for prevention Nocturnal hypoxemia Diagnosed on PSG PUD (peptic ulcer disease) 1968 conservative tx while in service Pure hypercholesterolemia 05/11/2005 Sciatica 05/11/2005 Unspecified essential hypertension 05/11/2005 PAST SURGICAL HISTORY Procedure Laterality Date APPENDECTOMY CABG (3) VEIN GRAFTS & ARTERIAL GRAFT(S) 10/25/2021 CHOLECYSTECTOMY COLONOSCOPY FLX DX W/COLLJ SPEC WHEN PFRMD 01/29/2001 Colonoscopy COLONOSCOPY FLX DX W/COLLJ SPEC WHEN PFRMD 03/26/2018 Colonoscopy COLONOSCOPY W/BIOPSY SINGLE/MULTIPLE 05/16/2008 ESOPHAGOGASTRODUODENOSCOPY TRANSORAL DIAGNOSTIC 03/26/2018 EGD ESOPHAGOSCOPY FLEX BALLOON DILAT <30 MM DIAM 04/12/2006 Esophageal dilatation PAST SURGICAL HISTORY OF 1999 hemorrhoidectomy PAST SURGICAL HISTORY OF left footsurgery PAST SURGICAL HISTORY OF 1990 Brad fundoplication PAST SURGICAL HISTORY OF 10/2006 re-do fundop[address] Dr Felix RPR 1ST INGUN HRNA AGE 7 YRS/> REDUCIBLE age 17 Hernia repair, inguinal, left FAMILY HISTORY Problem Relation Age of Onset Diabetes Mother Heart Father [place] Diabetes Brother Stroke Maternal Grandfather Cancer Paternal Grandfather Social History Tobacco Use Smoking status: Former Smoker Packs/day: 1.50 Years: 6.00 Pack years: 9.00 Types: Cigarettes Quit date: 09/18/1970 Years since quittin.3 Smokeless tobacco: Never Used Substance Use Topics Alcohol use: Yes Alcohol/week: 1.7 standard drinks Comment: rarely Drug use: No ALLERGIES Allergen Reactions Barium Sulfate Hives Carafate [Sucralfat* GI Upset worsening of chest pain and IBS symptoms Erythromycin GI Upset only PO is problematic Flomax [Tamsulosin * Hives Penicillins unknown -childhood Medications: Current Outpatient Medications Medication Sig Dispense Refill psyllium seed, with dextrose, (FIBER SUPPLEMENT ORAL) Take by mouth once daily. fluticasone (FLONASE) 50 mcg/actuation nasal spray Use 2 Sprays in each nostril once daily as needed. 1 Each 5 aspirin 81 mg chewable tablet Take 1 tablet by mouth once daily. 30 tablet 0 lamoTRIgine (LAMICTAL) 150 mg tablet Take 0.5 tablets by mouth once daily. 45 tablet 0 dicyclomine (BENTYL) 20 mg tablet Take 1 tablet by mouth once daily. 90 tablet 3 finasteride (PROSCAR) 5 mg tablet Take 1 tablet by mouth once daily. 90 tablet 3 omeprazole (PRILOSEC) 40 mg capsule Take 1 capsule by mouth twice daily. 180 capsule 3 ondansetron (ZOFRAN) 4 mg tablet Take 1 tablet by mouth every 8 hours as needed for nausea/vomiting. 30 tablet 3 propranolol ER (INDERAL LA) 120 mg 24 hr capsule Take 1 capsule by mouth once daily. 90 capsule 3 traZODone (DESYREL) 50 mg tablet Take 0.5-1 tablets by mouth daily at bedtime. For insomnia and depression 90 tablet 3 losartan (COZAAR) 50 mg tablet Take 0.5 tablets by mouth twice daily. 180 tablet 3 rosuvastatin (CRESTOR) 10 mg tablet Take 2 tablets by mouth once daily. 90 tablet 3 melatonin 3 mg tablet Take 1 tablet by mouth at bedtime as needed (insomnia). metFORMIN ER (GLUCOPHAGE XR) 500 mg 24 hr tablet Take 1 tablet by mouth daily with breakfast. 90 tablet 0 Blood-Glucose Meter 1 Device as directed. Test Three times a day. Before breakfast, lunch and before bedtime. 1 Each 0 Blood Glucose Control, Normal soln 1 Ampule as directed. 1 Each 0 blood sugar diagnostic test strip Use with blood glucose test 3 times daily, Insulin Dep? No 300 Strip 5 Lancets lancets Use with blood glucose test 3 times daily. Insulin Dep? No 300 Each 5 alcohol swabs Use with blood glucose test 3 times daily. Insulin Dep? No 300 Each 5 [place]-3 Fatty Acids 500 mg cap Take 500 mg by mouth twice daily. docusate sodium (COLACE) 100 mg capsule Take 2 tablets by mouth once daily. methylcellulose (CITRUCEL ORAL) Take by mouth once daily. polyethylene glycol 3350 (MIRALAX) 17 gram/dose powder Take by mouth once daily. Dissolve dose in 4- 8 ounces of liquid and take as directed. Taking as needed Uses When citrucel and stool softner not effective ipratropium 20 mcg-albuterol 100 mcg (COMBIVENT RESPIMAT) 20-100 mcg/actuation inhaler Inhale 1 Puff as instructed every 6 hours as needed. 4 g 11 beclomethasone (QVAR REDIHALER) 80 mcg/actuation inhaler Inhale 2 Puffs as instructed twice daily. 1 Each 3 promethazine (PHENERGAN) 25 mg tablet Take 1 tablet by mouth every 8 hours as needed. FOR NAUSEA 10tablet 1 albuterol HFA (VENTOLIN HFA) 90 mcg/actuation inhaler Inhale 2 Puffs as instructed every 4 hours asneeded for Wheezing/Shortness of Breath. 1 Inhaler 3 calcium citrate/vitamin d3(CITRACAL + D 315 MG-200 UNIT TAB) Take one(1) tablet two(2) times daily.0 Ascorbic Acid (VITAMIN C) 1,000 mg ORAL Tab Take one(1) tablet daily. 0 magnesium oxide (MAG-OX) 400 mg (241.3 mg magnesium) tablet Take 1 tablet by mouth once daily. 30 tablet 0 glucose 4 gram chewable tablet Take 4 tablets by mouth as needed for low blood sugar. 10 tablet 5 Current Facility-Administered Medications Medication Dose Route Frequency Provider Last Rate Last Admin acetaminophen 650 mg tab(s) (TYLENOL) 650 mg ORAL q 6 H PRN Berto Renteria APRN.RESPITE WORKER metoclopramide HCl 10 mg tab(s) (REGLAN) 10 mg ORAL PRN Nevin Marquez MD ondansetron 4 mg tab(s) (ZOFRAN) 4 mg ORAL PRN Nevin Marquez MD Review of Systems Constitutional: Negative for chills, diaphoresis, fever, malaise/fatigue and weight loss. HENT: Negative for congestion, ear discharge, ear pain, hearing loss, nosebleeds, sinus pain, sore throat and tinnitus. Eyes: Negative for blurred vision, double vision, photophobia, pain, discharge and redness. Respiratory: Negative for cough, hemoptysis, sputum production, shortness of breath, wheezing and stridor. Cardiovascular: Negative for chest pain, palpitations, orthopnea, claudication, leg swelling and PND. Gastrointestinal: Negative for abdominal pain, blood in stool, constipation, diarrhea, heartburn, melena, nausea and vomiting. Genitourinary: Negative for dysuria, flank pain, frequency, hematuria and urgency. Musculoskeletal: Negative for back pain, falls, joint pain, myalgias and neck pain. Skin: Negative for itching and rash. Neurological: Negative for dizziness, tingling, tremors, sensory change, speech change, focal weakness, seizures, loss of consciousness, weakness and headaches. Endo/Heme/Allergies: Negative for environmental allergies and polydipsia. Does not bruise/bleed easily. Psychiatric/Behavioral: Negative for depression, hallucinations, memory loss, substance abuse and suicidal ideas. The patient is not nervous/anxious and does not have insomnia. Physical Examination: Vitals:BP 148/80 Pulse 72 Wt 185 lb (83.9kg) BP w/Orthostatic Vitals Date and Time Orthostatic BP Orthostatic Pulse BP Pulse BP Position BP Site BP Cuff Size 01/03/22 1058 -- -- 148/80 72 Sitting Right Arm Regular Adult Last 2 Encounter Wt Readings: Date: Wt: 01/03/2022 83.9 kg (185 lb) 12/14/2021 82.1 kg (181 lb) Physical Exam Constitutional: General: He is not in acute distress. Appearance: He is not diaphoretic. HENT: Head: Normocephalic and atraumatic. Right Ear: External ear normal. Left Ear: External ear normal. Nose: Nose normal. Mouth/Throat: Pharynx: Oropharynx is clear. Eyes: General: Right eye: No discharge. Left eye: No discharge. Conjunctiva/sclera: Conjunctivae normal. Pupils: Pupils are equal, round, and reactive to light. Cardiovascular: Rate and Rhythm: Normal rate and regular rhythm. Heart sounds: Normal heart sounds, S1 normal and S2 normal. No murmur heard. No friction rub. No gallop. No S3 or S4 sounds. Pulmonary: Effort: Pulmonary effort is normal. No respiratory distress. Breath sounds: Normal breath sounds. No wheezing or rales. Chest: Chest wall: No tenderness. Musculoskeletal: General: Normal range of motion. Cervical back: Normal range of motion and neck supple. Skin: General: Skin is warm and dry. Neurological: Mental Status: He is alert and oriented to person, place, and time. Psychiatric: Mood and Affect: Mood normal. Thought Content: Thought content normal. Judgment: Judgment normal. Pertinent Labs: CBC: Hemoglobin (g/dL) Date Value 12/13/2021 13.2 08/11/2021 12.9 Hematocrit (%) Date Value 12/13/2021 40.1 08/11/2021 39.5 WBC (k/uL) Date Value 12/13/2021 5.36 08/11/2021 4.26 Platelet Count (k/uL) Date Value 12/13/2021 345 08/11/2021 280 BMP: Glucose (mg/dL) Date Value 12/13/2021 114 08/11/2021 102 Potassium (mmol/L) Date Value 12/13/2021 4.6 08/11/2021 4.2 Sodium (mmol/L) Date Value 12/13/2021 137 08/11/2021 140 Chloride (mmol/L) Date Value 12/13/2021 99 08/11/2021 101 CO2 (mmol/L) Date Value 12/13/2021 28 08/11/2021 29 Creatinine (mg/dL) Date Value 12/13/2021 0.85 08/11/2021 1.07 BUN (mg/dL) Date Value 12/13/2021 16 08/11/2021 22 Anion Gap (mmol/L) Date Value 12/13/2021 10 08/11/2021 10 Calcium (mg/dL) Date Value 08/11/2021 10.0 Calcium, Total (mg/dL) Date Value 12/13/2021 9.6 INR: Lipid Profile: Total Cholesterol, Nonfasting Date Value Ref Range Status 04/06/2021 131 <200 mg/dL Final Comment: <200 mg/dL, Desirable 200-239 mg/dL, Borderline high >239 mg/dL, High HDL Cholesterol, Nonfasting Date Value Ref Range Status 04/06/2021 54 >39 mg/dL Final Comment: 40-59 mg/dL, Acceptable >59 mg/dL, High: Negative risk factor for coronary heart disease <40 mg/dL, Low: Positive risk factor for coronary heart disease LDL Cholesterol, Nonfasting Date Value Ref Range Status 04/06/2021 62 <100 mg/dL Final Comment: <100 mg/dL, Optimal 100-129 mg/dL, Near optimal/above optimal 130-159 mg/dL, Borderline high 160-189 mg/dL, High >189 mg/dL, Very high Secondary prevention optimal LDL Cholesterol levels are recommended to be < 70 mg/dL Triglycerides, Nonfasting Date Value Ref Range Status 04/06/2021 77 <150 mg/dL Final Comment: <150 mg/dL, Normal 150-199 mg/dL, Borderline high 200-499 mg/dL, High >499 mg/dL, Very high Hemoglobin A1C: No results found for: HGBA1C TSH: No results found for: TSHREFL Prior Cardiac Testing none Assessment and Plan: 76 years old gentleman status post bypass surgery is doing well from a cardiac point of view we will continue with the same cardiac medication Follow-up in 1 year Follow up planning: One year Electronically signed by Emiliana Estevez MD on January 03, 2022, 11:19 AM The above note was partially created using a dictation recognition software. A reasonable attempt has been made to correct any errors. documented in this encounterCenterville04-15-2022 Miscellaneous Notes* Telephone Encounter - Jes Belcher APRN.CNP - 12/31/2021 9:33 AM EDT Monitor results reviewed with the patient. He would like to continue propranolol at his current dosing. Will follow up with Dr. Estevez on Monday. Thank you, Jes Belcher APRN.CNP documented in this encounterCenterville03-31-2022 Miscellaneous Notes* Telephone Encounter - Nicho Terry Ma - 12/16/2021 11:24 AM EDT Informed via [employer] Nicho Terry Ma Last viewed in [employer] 12/16/2021 8:54 AM By: oTsha Spann * Telephone Encounter - Nicho Terry Ma - 12/16/2021 11:24 AM EDT ----- Message from Cipriano Thomas Jr., MD sent at 12/16/2021 10:59 AM EDT ----- Let pt know that psa is 1.36 documented in this encounterCenterville03-29-2022 History of Present illness Narrative* Cipriano Thomas Jr., MD - 12/14/2021 2:22 PM EDT ESTABLISHED PATIENT OFFICE VISIT HPI Tosha Spann is a 76 year old male who presents previous patient of dr. Matthews. Ho bph. On finasteride. luts controlled. Psa one year ago was 1.32. now is 2.38 12/14/21 - doing ok. luts controlled on finasteride. Weaker stream. No recent psa done. Had recent cabg. Recovering from that ok. LAB: Creatinine Date Value Ref Range Status 12/13/2021 0.85 0.73 - 1.22 mg/dL Final PSA (ng/mL) Date Value 11/09/2020 2.38 04/07/2020 1.32 01/30/2019 1.45 12/12/2016 3.60 01/20/2015 2.37 08/11/2014 2.38 06/19/2013 2.81 05/13/2013 5.39 01/14/2013 3.29 04/30/2012 3.19 Glucose, Urine Date Value 10/13/2021 Negative 02/21/2018 Negative mg/dL Bilirubin, Urine (no units) Date Value 10/13/2021 Negative 02/21/2018 Negative Ketones, Urine (no units) Date Value 10/13/2021 Negative 02/21/2018 Negative Specific [place], Ur (no units) Date Value 10/13/2021 1.013 02/21/2018 1.012 Hemoglobin/Blood,Ur Date Value 10/13/2021 Negative 02/21/2018 Negative pH, Urine (no units) Date Value 10/13/2021 6.5 02/21/2018 6.0 Protein, Urine Date Value 10/13/2021 Negative 02/21/2018 Negative mg/dL Urobilinogen, Urine (EU) Date Value 05/01/2012 0.2N Nitrites (no units) Date Value 10/13/2021 Negative 02/21/2018 Negative Leukocytes (no units) Date Value 05/01/2012 NEG WBC, Urine Date Value 10/13/2021 0-5 /HPF 02/21/2018 0-5 /HPF Color/Appearance (comment:) Date Value 05/01/2012 YELLOW/CLEAR MEDICATIONS: psyllium seed, with dextrose, (FIBER SUPPLEMENT ORAL) Take by mouth once daily. fluticasone (FLONASE) 50 mcg/actuation nasal spray Use 2 Sprays in each nostril once daily as needed. aspirin 81 mg chewable tablet Take 1 tablet by mouth once daily. lamoTRIgine (LAMICTAL) 150 mg tablet Take 0.5 tablets by mouth once daily. dicyclomine (BENTYL) 20 mg tablet Take 1 tablet by mouth once daily. finasteride (PROSCAR) 5 mg tablet Take 1 tablet by mouth once daily. omeprazole (PRILOSEC) 40 mg capsule Take 1 capsule by mouth twice daily. ondansetron (ZOFRAN) 4 mg tablet Take 1 tablet by mouth every 8 hours as needed for nausea/vomiting. propranolol ER (INDERAL LA) 120 mg 24 hr capsule Take 1 capsule by mouth once daily. traZODone (DESYREL) 50 mg tablet Take 0.5-1 tablets by mouth daily at bedtime. For insomnia and depression losartan (COZAAR) 50 mg tablet Take 0.5 tablets by mouth twice daily. rosuvastatin (CRESTOR) 10 mg tablet Take 2 tablets by mouth once daily. melatonin 3 mg tablet Take 1 tablet by mouth at bedtime as needed (insomnia). metFORMIN ER (GLUCOPHAGE XR) 500 mg 24 hr tablet Take 1 tablet by mouth daily with breakfast. Blood-Glucose Meter 1 Device as directed. Test Three times a day. Before breakfast, lunch and before bedtime. Blood Glucose Control, Normal soln 1 Ampule as directed. blood sugar diagnostic test strip Use with blood glucose test 3 times daily, Insulin Dep? No Lancets lancets Use with blood glucose test 3 times daily. Insulin Dep? No alcohol swabs Use with blood glucose test 3 times daily. Insulin Dep? No [place]-3 Fatty Acids 500 mg cap Take 500 mg by mouth twice daily. docusate sodium (COLACE) 100 mg capsule Take 2 tablets by mouth once daily. methylcellulose (CITRUCEL ORAL) Take by mouth once daily. polyethylene glycol 3350 (MIRALAX) 17 gram/dose powder Take by mouth once daily. Dissolve dose in 4- 8 ounces of liquid and take as directed. Taking as needed Uses When citrucel and stool softner not effective ipratropium 20 mcg-albuterol 100 mcg (COMBIVENT RESPIMAT) 20-100 mcg/actuation inhaler Inhale 1 Puff as instructed every 6 hours as needed. beclomethasone (QVAR REDIHALER) 80 mcg/actuation inhaler Inhale 2 Puffs as instructed twice daily. promethazine (PHENERGAN) 25 mg tablet Take 1 tablet by mouth every 8 hours as needed. FOR NAUSEA albuterol HFA (VENTOLIN HFA) 90 mcg/actuation inhaler Inhale 2 Puffs as instructed every 4 hours asneeded for Wheezing/Shortness of Breath. calcium citrate/vitamin d3(CITRACAL + D 315 MG-200 UNIT TAB) Take one(1) tablet two(2) times daily. Ascorbic Acid (VITAMIN C) 1,000 mg ORAL Tab Take one(1) tablet daily. magnesium oxide (MAG-OX) 400 mg (241.3 mg magnesium) tablet Take 1 tablet by mouth once daily. glucose 4 gram chewable tablet Take 4 tablets by mouth as needed for low blood sugar. REVIEW OF SYSTEMS Review of Systems Constitutional: Negative. Respiratory: Negative. Cardiovascular: Negative. Gastrointestinal: Negative. Genitourinary: Negative. Skin: Negative. Neurological: Negative. Psychiatric/Behavioral: Negative. HISTORIES PAST MEDICAL HISTORY Diagnosis Date Abnormal REM sleep REM dependent ALFONSO CAD (coronary artery disease) Diarrhea 05/11/2005 Diarrhea Enthesopathy of hip region 05/11/2005 Esophageal reflux 05/11/2005 Hemorrhage of gastrointestinal tract, unspecified 05/11/2005 Intestinal infection due to campylobacter 05/11/2005 Migraine without aura, without mention of intractable migraine without mention of status migrainosus 05/11/2005 Propranolol effective for prevention Nocturnal hypoxemia Diagnosed on PSG PUD (peptic ulcer disease) 1968 conservative tx while in service Pure hypercholesterolemia 05/11/2005 Sciatica 05/11/2005 Unspecified essential hypertension 05/11/2005 FAMILY HISTORY Problem Relation Age of Onset Diabetes Mother Heart Father GA Diabetes Brother Stroke Maternal Grandfather Cancer Paternal Grandfather SOCIAL HISTORY Social History Tobacco Use Smoking status: Former Smoker Packs/day: 1.50 Years: 6.00 Pack years: 9.00 Types: Cigarettes Quit date: 09/18/1970 Years since quittin.2 Smokeless tobacco: Never Used Substance Use Topics Alcohol use: Yes Alcohol/week: 1.7 standard drinks Comment: rarely Drug use: No PHYSICAL EXAMINATION General appearance: Well appearing, alert, in no acute distress and well- hydrated, well nourished Skin: Skin color, texture, turgor normal, no suspicious rashes or lesions Respiratory:+ effort Cardiovascular: Not examined GI: Normal abdominal exam, Abdomen soft, non-tender. 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 notified of test results and verbalizes understanding. Radha Maldonado MA * Telephone Encounter - Radha Maldonado - 12/14/2021 10:36 AM EDT ----- Message from Jes Belcher APRN.RESPITE WORKER sent at 12/14/2021 10:27 AM EDT ----- Please call patient and notify him his labs are stable/within normal limits. Thank you! documented in this encounterCent[place]03-28-2022 Miscellaneous Notes* Telephone Encounter - Susanne Hernandez LPN - 12/13/2021 9:21 AM EDT Art called stating that his HR was 174 while on a 2 mile walk this weekend. Reported a strange feeling in his chest after, almost like a galloping. Went away after he rested. He reached out to Dr. Dalton but can't get in for a while. He was wondering if someone could speak to him about this event. He can be reached at [phone]. Thanks, Susanne Hernandez LPN documented in this encounterCenterville03-25-2022 Miscellaneous Notes* Telephone Encounter - Rosey Alvarez RN - 12/10/2021 11:45 AM EDT Spoke to patient. He will come in on 01-03-22 at 11am [address] see Dr[address] Estevez to review cath. Rosey Alvarez, RN * Telephone Encounter - Carlotta Adkins Pss - 12/10/2021 9:19 AM EDT Patient called stating he was to see Dr. Estevez for 6 week follow up and appointment had been canceled and rescheduled a couple of times. He was informed to schedule an appt in [place] where he could beseen sooner. He was scheduled for today. [place] office canceled appt informing patient he could not be seen there due to being seen previously in [place]. Patient is getting frustrated and wants to see Dr. Estevez due to procedure he had. Please call patient and advise. documented in this encounterCent[place]03-24-2022 Miscellaneous Notes* Telephone Encounter - Ana Olea LPN - 12/09/2021 2:07 PM EDT Different pharmacy. Patient has been identified by name and date of : Yes Patient phones for refill(s): Pending Prescriptions Disp Refills FLUTICASONE PROPIONATE 50 MCG/ACTUATION NASAL SPRAY,SUSPENSION 1 Each 5 Sig: Use 2 Sprays in each nostril once daily as needed. REJI: No Date of last office visit in primary care: 11/05/2021 No future appt scheduled. Last 2 Encounter Wt Readings: Date: Wt: 11/29/2021 81.6 kg (180 lb) 11/08/2021 81.2 kg (179 lb) Previous labs/tests for medication: Not applicable Please advise. Thank you. Ana Olea LPN documented in this encounterCenterville02-07-2022 History of Past illness Narrative* Problem Noted Date Resolved Date CAD (coronary artery disease) 10/25/2021 Unspecified sinusitis (chronic) 08/24/2005 09/25/2018 Nocturnal hypoxemia 03/07/2018 Overview: Diagnosed on PSG documented as of this encounter (statuses as of 12/09/2021) [address]07-[address]22 History of Past illness Narrative* Problem Noted Date Resolved Date CAD (coronary artery disease) 10/25/2021 Unspecified sinusitis (chronic) 08/24/2005 09/25/2018 Nocturnal hypoxemia 03/07/2018 Overview: Diagnosed on PSG documented as of this encounter (statuses as of 12/10/2021) [address]07-[address]22 History of Past illness Narrative* Problem Noted Date Resolved Date CAD (coronary artery disease) 10/25/2021 Unspecified sinusitis (chronic) 08/24/2005 09/25/2018 Nocturnal hypoxemia 03/07/2018 Overview: Diagnosed on PSG documented as of this encounter (statuses as of 12/14/2021) [address]07-2022 History of Past illness Narrative* Problem Noted Date Resolved Date CAD (coronary artery disease) 10/25/2021 Unspecified sinusitis (chronic) 08/24/2005 09/25/2018 Nocturnal hypoxemia 03/07/2018 Overview: Diagnosed on PSG documented as of this encounter (statuses as of 12/14/2021) [address]07-2022 History of Past illness Narrative* Problem Noted Date Resolved Date CAD (coronary artery disease) 10/25/2021 Unspecified sinusitis (chronic) 08/24/2005 09/25/2018 Nocturnal hypoxemia 03/07/2018 Overview: Diagnosed on PSG documented as of this encounter (statuses as of 12/16/2021) [address]07-2022 History of Past illness Narrative* Problem Noted Date Resolved Date CAD (coronary artery disease) 10/25/2021 Unspecified sinusitis (chronic) 08/24/2005 09/25/2018 Nocturnal hypoxemia 03/07/2018 Overview: Diagnosed on PSG documented as of this encounter (statuses as of 12/29/2021) [address]07-2022 History of Past illness Narrative* Problem Noted Date Resolved Date CAD (coronary artery disease) 10/25/2021 Unspecified sinusitis (chronic) 08/24/2005 09/25/2018 Nocturnal hypoxemia 03/07/2018 Overview: Diagnosed on PSG documented as of this encounter (statuses as of 12/31/2021) [address]07-2022 History of Past illness Narrative* Problem Noted Date Resolved Date CAD (coronary artery disease) 10/25/2021 Unspecified sinusitis (chronic) 08/24/2005 09/25/2018 Nocturnal hypoxemia 03/07/2018 Overview: Diagnosed on PSG documented as of this encounter (statuses as of 01/03/2022) [address]07-2022 History of Past illness Narrative* Problem Noted Date Resolved Date CAD (coronary artery disease) 10/25/2021 Unspecified sinusitis (chronic) 08/24/2005 09/25/2018 Nocturnal hypoxemia 03/07/2018 Overview: Diagnosed on PSG documented as of this encounter (statuses as of 01/07/2022) [address]07-2022 History of Past illness Narrative* Problem Noted Date Resolved Date CAD (coronary artery disease) 10/25/2021 Unspecified sinusitis (chronic) 08/24/2005 09/25/2018 Nocturnal hypoxemia 03/07/2018 Overview: Diagnosed on PSG documented as of this encounter (statuses as of 01/20/2022) [address]07-2022 History of Past illness Narrative* Problem Noted Date Resolved Date CAD (coronary artery disease) 10/25/2021 Unspecified sinusitis (chronic) 08/24/2005 09/25/2018 Nocturnal hypoxemia 03/07/2018 Overview: Diagnosed on PSG documented as of this encounter (statuses as of 02/07/2022) [address]07-2022 History of Past illness Narrative* Problem Noted Date Resolved Date CAD (coronary artery disease) 10/25/2021 Unspecified sinusitis (chronic) 08/24/2005 09/25/2018 Nocturnal hypoxemia 03/07/2018 Overview: Diagnosed on PSG documented as of this encounter (statuses as of 03/03/2022) [address]07-2022 History of Past illness Narrative* Problem Noted Date Resolved Date CAD (coronary artery disease) 10/25/2021 Unspecified sinusitis (chronic) 08/24/2005 09/25/2018 Nocturnal hypoxemia 03/07/2018 Overview: Diagnosed on PSG documented as of this encounter (statuses as of 03/05/2022) [address]07-2022 History of Past illness Narrative* Problem Noted Date Resolved Date CAD (coronary artery disease) 10/25/2021 Unspecified sinusitis (chronic) 08/24/2005 09/25/2018 Nocturnal hypoxemia 03/07/2018 Overview: Diagnosed on PSG documented as of this encounter (statuses as of 03/09/2022) [address]07-2022 History of Past illness Narrative* Problem Noted Date Resolved Date CAD (coronary artery disease) 10/25/2021 Unspecified sinusitis (chronic) 08/24/2005 09/25/2018 Nocturnal hypoxemia 03/07/2018 Overview: Diagnosed on PSG documented as of this encounter (statuses as of 03/15/2022) [address]07-2022 History of Past illness Narrative* Problem Noted Date Resolved Date CAD (coronary artery disease) 10/25/2021 Unspecified sinusitis (chronic) 08/24/2005 09/25/2018 Nocturnal hypoxemia 03/07/2018 Overview: Diagnosed on PSG documented as of this encounter (statuses as of 03/18/2022) [address]07-2022 History of Past illness Narrative* Problem Noted Date Resolved Date CAD (coronary artery disease) 10/25/2021 Unspecified sinusitis (chronic) 08/24/2005 09/25/2018 Nocturnal hypoxemia 03/07/2018 Overview: Diagnosed on PSG documented as of this encounter (statuses as of 03/22/2022) [address]07-2022 History of Past illness Narrative* Problem Noted Date Resolved Date CAD (coronary artery disease) 10/25/2021 Unspecified sinusitis (chronic) 08/24/2005 09/25/2018 Nocturnal hypoxemia 03/07/2018 Overview: Diagnosed on PSG documented as of this encounter (statuses as of 03/23/2022) [address]07-2022 History of Past illness Narrative* Problem Noted Date Resolved Date CAD (coronary artery disease) 10/25/2021 Unspecified sinusitis (chronic) 08/24/2005 09/25/2018 Nocturnal hypoxemia 03/07/2018 Overview: Diagnosed on PSG documented as of this encounter (statuses as of 03/24/2022) [address]07-2022 History of Past illness Narrative* Problem Noted Date Resolved Date CAD (coronary artery disease) 10/25/2021 Unspecified sinusitis (chronic) 08/24/2005 09/25/2018 Nocturnal hypoxemia 03/07/2018 Overview: Diagnosed on PSG documented as of this encounter (statuses as of 03/31/2022) [address]07-2022 History of Past illness Narrative* Problem Noted Date Resolved Date CAD (coronary artery disease) 10/25/2021 Unspecified sinusitis (chronic) 08/24/2005 09/25/2018 Nocturnal hypoxemia 03/07/2018 Overview: Diagnosed on PSG documented as of this encounter (statuses as of 05/02/2022) [address]07-2022 History of Past illness Narrative* Problem Noted Date Resolved Date CAD (coronary artery disease) 10/25/20212 Unspecified sinusitis (chronic) 08/24/2005 09/25/2018 Nocturnal hypoxemia 03/07/2018 Overview: Diagnosed on PSG documented as of this encounter (statuses as of 05/24/2022) [address]07-2022 History of Past illness Narrative* Problem Noted Date Resolved Date CAD (coronary artery disease) 10/25/2021 Unspecified sinusitis (chronic) 08/24/2005 09/25/2018 Nocturnal hypoxemia 03/07/2018 Overview: Diagnosed on PSG documented as of this encounter (statuses as of 05/24/2022) [address]07-2022 History of Past illness Narrative* Problem Noted Date Resolved Date CAD (coronary artery disease) 10/25/2021 Unspecified sinusitis (chronic) 08/24/2005 09/25/2018 Nocturnal hypoxemia 03/07/2018 Overview: Diagnosed on PSG documented as of this encounter (statuses as of 05/25/2022) [address]07-2022 History of Past illness Narrative* Problem Noted Date Resolved Date CAD (coronary artery disease) 10/25/2021 Unspecified sinusitis (chronic) 08/24/2005 09/25/2018 Nocturnal hypoxemia 03/07/2018 Overview: Diagnosed on PSG documented as of this encounter (statuses as of 06/07/2022) [address]07-2022 History of Past illness Narrative* Problem Noted Date Resolved Date CAD (coronary artery disease) 10/25/2021 Unspecified sinusitis (chronic) 08/24/2005 09/25/2018 Nocturnal hypoxemia 03/07/2018 Overview: Diagnosed on PSG documented as of this encounter (statuses as of 06/14/2022) [address]07-2022 History of Past illness Narrative* Problem Noted Date Resolved Date CAD (coronary artery disease) 10/25/2021 Unspecified sinusitis (chronic) 08/24/2005 09/25/2018 Nocturnal hypoxemia 03/07/2018 Overview: Diagnosed on PSG documented as of this encounter (statuses as of 06/28/2022) [address]07-2022 History of Past illness Narrative* Problem Noted Date Resolved Date CAD (coronary artery disease) 10/25/2021 Unspecified sinusitis (chronic) 08/24/2005 09/25/2018 Nocturnal hypoxemia 03/07/2018 Overview: Diagnosed on PSG documented as of this encounter (statuses as of 06/30/2022) [address]07-2022 History of Past illness Narrative* Problem Noted Date Resolved Date CAD (coronary artery disease) 10/25/2021 Unspecified sinusitis (chronic) 08/24/2005 09/25/2018 Nocturnal hypoxemia 03/07/2018 Overview: Diagnosed on PSG documented as of this encounter (statuses as of 07/12/2022) [address]07-2022 History of Past illness Narrative* Problem Noted Date Resolved Date CAD (coronary artery disease) 10/25/2021 Unspecified sinusitis (chronic) 08/24/2005 09/25/2018 Nocturnal hypoxemia 03/07/2018 Overview: Diagnosed on PSG documented as of this encounter (statuses as of 07/12/2022) [address]07-2022 History of Past illness Narrative* Problem Noted Date Resolved Date CAD (coronary artery disease) 10/25/2021 Unspecified sinusitis (chronic) 08/24/2005 09/25/2018 Nocturnal hypoxemia 03/07/2018 Overview: Diagnosed on PSG documented as of this encounter (statuses as of 07/14/2022) [address]07-2022 History of Past illness Narrative* Problem Noted Date Resolved Date CAD (coronary artery disease) 10/25/2021 Unspecified sinusitis (chronic) 08/24/2005 09/25/2018 Nocturnal hypoxemia 03/07/2018 Overview: Diagnosed on PSG documented as of this encounter (statuses as of 07/15/2022) [address]07-2022 History of Past illness Narrative* Problem Noted Date Resolved Date CAD (coronary artery disease) 10/25/2021 Unspecified sinusitis (chronic) 08/24/2005 09/25/2018 Nocturnal hypoxemia 03/07/2018 Overview: Diagnosed on PSG documented as of this encounter (statuses as of 07/21/2022) [address]07-2022 History of Past illness Narrative* Problem Noted Date Resolved Date CAD (coronary artery disease) 10/25/2021 Unspecified sinusitis (chronic) 08/24/2005 09/25/2018 Nocturnal hypoxemia 03/07/2018 Overview: Diagnosed on PSG documented as of this encounter (statuses as of 08/08/2022) [address]07-2022 History of Past illness Narrative* Problem Noted Date Resolved Date CAD (coronary artery disease) 10/25/2021 Unspecified sinusitis (chronic) 08/24/2005 09/25/2018 Nocturnal hypoxemia 03/07/2018 Overview: Diagnosed on PSG documented as of this encounter (statuses as of 08/08/2022) [address]07-2022 History of Past illness Narrative* Problem Noted Date Resolved Date CAD (coronary artery disease) 10/25/2021 Unspecified sinusitis (chronic) 08/24/2005 09/25/2018 Nocturnal hypoxemia 03/07/2018 Overview: Diagnosed on PSG documented as of this encounter (statuses as of 08/15/2022) [address]07-2022 History of Past illness Narrative* Problem Noted Date Resolved Date CAD (coronary artery disease) 10/25/2021 Unspecified sinusitis (chronic) 08/24/2005 09/25/2018 Nocturnal hypoxemia 03/07/2018 Overview: Diagnosed on PSG documented as of this encounter (statuses as of 08/16/2022) [address]07-2022 History of Past illness Narrative* Problem Noted Date Resolved Date CAD (coronary artery disease) 10/25/2021 Unspecified sinusitis (chronic) 08/24/2005 09/25/2018 Nocturnal hypoxemia 03/07/2018 Overview: Diagnosed on PSG documented as of this encounter (statuses as of 09/02/2022) [address]07-2022 History of Past illness Narrative* Problem Noted Date Resolved Date CAD (coronary artery disease) 10/25/2021 Unspecified sinusitis (chronic) 08/24/2005 09/25/2018 Nocturnal hypoxemia 03/07/2018 Overview: Diagnosed on PSG documented as of this encounter (statuses as of 09/09/2022) [address]07-2022 History of Past illness Narrative* Problem Noted Date Resolved Date CAD (coronary artery disease) 10/25/2021 Unspecified sinusitis (chronic) 08/24/2005 09/25/2018 Nocturnal hypoxemia 03/07/2018 Overview: Diagnosed on PSG documented as of this encounter (statuses as of 10/24/2022) [address]07-2022 History of Past illness Narrative* Problem Noted Date Resolved Date CAD (coronary artery disease) 10/25/2021 Unspecified sinusitis (chronic) 08/24/2005 09/25/2018 Nocturnal hypoxemia 03/07/2018 Overview: Diagnosed on PSG documented as of this encounter (statuses as of 10/25/2022) [address]07-2022 History of Past illness Narrative* Problem Noted Date Resolved Date CAD (coronary artery disease) 10/25/2021 Unspecified sinusitis (chronic) 08/24/2005 09/25/2018 Nocturnal hypoxemia 03/07/2018 Overview: Diagnosed on PSG documented as of this encounter (statuses as of 10/25/2022) [address]07-2022 History of Past illness Narrative* Problem Noted Date Resolved Date CAD (coronary artery disease) 10/25/2021 Unspecified sinusitis (chronic) 08/24/2005 09/25/2018 Nocturnal hypoxemia 03/07/2018 Overview: Diagnosed on PSG documented as of this encounter (statuses as of 11/16/2022) [place]07-2022 History of Past illness Narrative* Problem Noted Date Resolved Date CAD (coronary artery disease) 10/25/2021 Unspecified sinusitis (chronic) 08/24/2005 09/25/2018 Nocturnal hypoxemia 03/07/2018 Overview: Diagnosed on PSG documented as of this encounter (statuses as of 11/24/2022) [address]07-2022 History of Past illness Narrative* Problem Noted Date Resolved Date CAD (coronary artery disease) 10/25/2021 Unspecified sinusitis (chronic) 08/24/2005 09/25/2018 Nocturnal hypoxemia 03/07/2018 Overview: Diagnosed on PSG documented as of this encounter (statuses as of 12/06/2022) [address]07-2022 History of Past illness Narrative* Problem Noted Date Resolved Date CAD (coronary artery disease) 10/25/2021 Unspecified sinusitis (chronic) 08/24/2005 09/25/2018 Nocturnal hypoxemia 03/07/2018 Overview: Diagnosed on PSG documented as of this encounter (statuses as of 12/27/2022) [address]07-2022 History of Past illness Narrative* Problem Noted Date Resolved Date CAD (coronary artery disease) 10/25/2021 Unspecified sinusitis (chronic) 08/24/2005 09/25/2018 Nocturnal hypoxemia 03/07/2018 Overview: Diagnosed on PSG documented as of this encounter (statuses as of 01/02/2023) [address]07-2022 History of Past illness Narrative* Problem Noted Date Resolved Date CAD (coronary artery disease) 10/25/2021 Unspecified sinusitis (chronic) 08/24/2005 09/25/2018 Nocturnal hypoxemia 03/07/2018 Overview: Diagnosed on PSG documented as of this encounter (statuses as of 02/17/2023) [place]07-2022 History of Past illness Narrative* Problem Noted Date Resolved Date CAD (coronary artery disease) 10/25/2021 Unspecified sinusitis (chronic) 08/24/2005 09/25/2018 Nocturnal hypoxemia 03/07/2018 Overview: Diagnosed on PSG documented as of this encounter (statuses as of 03/10/2023) [address]07-2022 History of Past illness Narrative* Problem Noted Date Resolved Date CAD (coronary artery disease) 10/25/2021 Unspecified sinusitis (chronic) 08/24/2005 09/25/2018 Nocturnal hypoxemia 03/07/2018 Overview: Diagnosed on PSG documented as of this encounter (statuses as of 03/16/2023) [address]07-2022 History of Past illness Narrative* Problem Noted Date Resolved Date CAD (coronary artery disease) 10/25/2021 Unspecified sinusitis (chronic) 08/24/2005 09/25/2018 Nocturnal hypoxemia 03/07/2018 Overview: Diagnosed on PSG documented as of this encounter (statuses as of 03/22/2023) [address]07-[address]22 History of Past illness Narrative* Problem Noted Date Diagnosed Date Resolved Date CAD (coronary artery disease) 10/25/2021 10/31/2021 Unspecified sinusitis (chronic) 08/24/2005 09/25/2018 Nocturnal hypoxemia 03/07/20 Overview: Diagnosed on PSG documented as of this encounter (statuses as of 04/07/2023) [address]07-[address]22 History of Past illness Narrative* Problem Noted Date Diagnosed Date Resolved Date CAD (coronary artery disease) 10/25/2021 10/31/2021 Unspecified sinusitis (chronic) 08/24/2005 09/25/2018 Nocturnal hypoxemia 03/07/20 18 Overview: Diagnosed on PSG documented as of this encounter (statuses as of 04/18/2023) [address]07-[address]22 History of Past illness Narrative* Problem Noted Date Diagnosed Date Resolved Date CAD (coronary artery disease) 10/25/2021 10/31/2021 Unspecified sinusitis (chronic) 08/24/2005 09/25/2018 Nocturnal hypoxemia 03/07/20 18 Overview: Diagnosed on PSG documented as of this encounter (statuses as of 05/04/2023) [address]07-[address]22 History of Past illness Narrative* Problem Noted Date Diagnosed Date Resolved Date CAD (coronary artery disease) 10/25/2021 10/31/2021 Unspecified sinusitis (chronic) 08/24/2005 09/25/2018 Nocturnal hypoxemia 03/07/20 18 Overview: Diagnosed on PSG documented as of this encounter (statuses as of 05/10/2023) [address]07-[address]22 History of Past illness Narrative* Problem Noted Date Diagnosed Date Resolved Date CAD (coronary artery disease) 10/25/2021 10/31/2021 Unspecified sinusitis (chronic) 08/24/2005 09/25/2018 Nocturnal hypoxemia 03/07/20 18 Overview: Diagnosed on PSG documented as of this encounter (statuses as of 06/13/2023) [place] [address]-07-2022 History of Past illness Narrative* Problem Noted Date Diagnosed Date Resolved Date CAD (coronary artery disease) 10/25/2021 10/31/2021 Unspecified sinusitis (chronic) 08/24/2005 09/25/2018 Nocturnal hypoxemia 03/07/20 18 Overview: Diagnosed on PSG documented as of this encounter (statuses as of 06/13/2023) [address]07-[address]22 History of Past illness Narrative* Problem Noted Date Diagnosed Date Resolved Date CAD (coronary artery disease) 10/25/2021 10/31/2021 Unspecified sinusitis (chronic) 08/24/2005 09/25/2018 Nocturnal hypoxemia 03/07/20 18 Overview: Diagnosed on PSG documented as of this encounter (statuses as of 06/28/2023) [place]-07-2022 History of Past illness Narrative* Problem Noted Date Diagnosed Date Resolved Date CAD (coronary artery disease) 10/25/2021 10/31/2021 Unspecified sinusitis (chronic) 08/24/2005 09/25/2018 Nocturnal hypoxemia 03/07/20 18 Overview: Diagnosed on PSG documented as of this encounter (statuses as of 07/18/2023) [place]-07-2022 History of Past illness Narrative* Problem Noted Date Diagnosed Date Resolved Date CAD (coronary artery disease) 10/25/2021 10/31/2021 Unspecified sinusitis (chronic) 08/24/2005 09/25/2018 Nocturnal hypoxemia 03/07/20 18 Overview: Diagnosed on PSG documented as of this encounter (statuses as of 08/22/2023) [place]-07-[place] History of Past illness Narrative* Problem Noted Date Diagnosed Date Resolved Date CAD (coronary artery disease) 10/25/2021 10/31/2021 Unspecified sinusitis (chronic) 08/24/2005 09/25/2018 Nocturnal hypoxemia 03/07/20 18 Overview: Diagnosed on PSG documented as of this encounter (statuses as of 08/29/2023) [place]-06-2022 NoteHNO ID: [id number] Author: Benita Alonso, CT Service: Radiology Author Type: Technologist Type: Progress Notes Filed: 09/23/2021 12:16 PM Note Text: Radiology Service Progress Note DATE OF SERVICE: September 23, 2021 TIME: 12:15 PM PATIENT IDENTITY VERIFICATION COMPLETED USING TWO (2) STANDARD IDENTIFIERS: Name and Date of confirmed by patient verbally and Name and Date of confirmed by identification band. FALL SCREENING: Has the patient had 2 falls in the last year or 1 fall with injury or currently using an Ambulatory Assistive Device (Walker, Cane, Wheelchair, Crutches, etc.)? No PATIENT GENDER DATA: Male PATIENT RELEVANT IMPLANT DATA REVIEWED: Not Applicable ALLERGIES: Reviewed and unchanged CONTRAST ALLERGY: NO. EXAM: CT -CONTRAST INDUCED NEPHROPATHY RISK FACTORS: Patient age > 60 years CREATININE: Creatinine Date Value Ref Range Status 08/11/2021 1.07 0.73 - 1.22 mg/dL Final 04/06/2021 0.86 0.73 - 1.22 mg/dL Final 04/07/2020 0.90 0.73 - 1.22 mg/dL Final eGFR-All Other Races Date Value Ref Range Status 08/11/2021 >60 . Final Comment: eGFR (Estimated GFR) Units of measure: mL/min/1.73 meters squared eGFR is derived from the reexpressed MDRD Study equation using the following parameters: serum creatinine, age, gender and race. The creatinine assay has been calibrated to be traceable to IDMS. An eGFR <60 mL/min/1.73m2 for >3 months is consistent with chronic kidney disease. Refer to KDOQI guidelines for clinical interpretation. In patients with unstable renal function, e.g. those with acute kidney injury, the eGFR may not accurately reflect actual GFR. Note: On 11/13/2021, the eGFR calculation will be updated to the NKF-ASN Task Force recommended 2020 CKD-EPI creatinine equation which does not include a race variable. For more information or to access a 2020 CKD-EPI calculator, visit the [employer] Kid[employer] website at kidney.org/professionals/kdoqi/gfr_calculator. eGFR- Date Value Ref Range Status 08/11/2021 >60 Final P.O.C.T. RESULTS: POC done: Yes, See Lab Tab September 23, 2021 TREATMENT: N/A PERIPHERAL IV DATA: Ambulatory: A peripheral IV was started in the Left antecubital site with a Angio cath: 20 gauge. RADIOLOGY DEPARTMENT: CT; Exam(s) Completed: CTA Cardiac SIGNATURE: LACY Romero PATIENT NAME: Tosha Spann DATE: September 23, 2021 TIME: 12:15 PM[id number] Miscellaneous Notes* Telephone Encounter - Nevin Marquez MD - 09/14/2021 3:43 PM EST Discussed with patient depression symptoms. Has been following with Dr. Whitley for counseling and he recommended medication adjustment (changing or adding to med) Had not liked side effects of a previous med he had tried. Currently just on trazodone to help withinsomnia and depression. Offered to refer to Kary Collazo so can help get his depression symptoms under control by someone who specializes in these meds since had problems with adverse effects with prior meds And would takeover management once stabilized on med(s). He was agreeable to this option and aware that would speak to Reid Nichols for intake first. Note that he has depression related to having to place in Memory Care due to dementia (she wascombative and it was not longer safe for him to take care of her). He feels guilty that he cannot take care of her at home and that he cannot spend more time with her there because she gets upset that he will not take her home. Sleep is some better with the trazodone but sometimes still not sleeping well. States Tears at every thought or kindness from anyone documented in this [place]11-[place] Miscellaneous Notes* Telephone Encounter - Nevin Marquez MD - 07/29/2021 1:35 PM EST Sleep issues--helps fall asleep but up 12:15-12:30 BP dropping sometimes to 105 Fatigue since COVID infection Jaw issues--therapy every 2 weeks; Doing exercises Back pain--to get temporary Joint problems with knuckles swollen in handles. Take losartan once daily for now then address with Dr. Estevez. Discussed covid booster Noted issues with [place] History of Past illness Narrative* Problem Noted Date Diagnosed Date Resolved Date Unspecified sinusitis (chronic) 08/24/2005 09/25/2018 Nocturnal hypoxemia 03/07/20 Overview: Diagnosed on PSG documented as of this encounter (statuses as of 11/07/2023) [place]-07-2005 History of Past illness Narrative* Problem Noted Date Diagnosed Date Resolved Date Unspecified sinusitis (chronic) 08/24/2005 09/25/2018 Nocturnal hypoxemia 03/07/20 18 Overview: Diagnosed on PSG documented as of this encounter (statuses as of 11/10/2023) [place]-07-2005 History of Past illness Narrative* Problem Noted Date Diagnosed Date Resolved Date Unspecified sinusitis (chronic) 08/24/2005 09/25/2018 Nocturnal hypoxemia 03/07/20 18 Overview: Diagnosed on PSG documented as of this encounter (statuses as of 12/12/2023) [place] Author Behzad Huertas [facility] June 03, 2023 11:49am Note Date/Time June 03, 2023 11:05am [facility] Medical Records Department [address] [place] [address] Emergency Department Summary 06/03/23 MR#: [id number] Acct: [id number] Name: TOSHA SPANN Rep #:[id number] : 1945 78 From: Behzad Huertas MD PCP: Dr. Nevin Marquez MD Status:RE G ER Location: ED HPI History of Present Illness Chief Complaint: Lower Extremity Injury Informant: patient Onset/Context/Timing Onset: Yesterday Location: Right anterior thigh Worsened by: Use, weightbearing Associated Symptoms Associated Symptoms: 1x incontinence last night, but no new numbness/anesthesias, no f. incont. Narrative Narrative: Patient slipped down 3 stairs soon injured his right thigh last night. He triedice and compression wraps, but they are not helping. He is able to bear weight,but does have a lot of pain with movement and weakness secondary to the pain. The pain is located in his anterior right thigh. He denies any other injuries or complaints. Denies back pain or other leg pain. Denies hitting his head or neck. No new weakness or numbness or anesthesias. He had one episode of urinary incontinence last night but no urinary retention. No fecal incontinence. Prior similar symptoms: No Recent Illness/Hospitalization: No PFSH PFSH Medical History Anxiety Arthritis Cardiology follow-up encounter Cold induced bronchospasm CPAP (continuous positive airway pressure) dependence Depression Diabetes Dietary restriction Difficulty swallowing Enlarged prostate Former smoker GERD (gastroesophageal reflux disease) Heartburn High cholesterol History of echocardiogram History of GI bleed History of hiatal hernia History of steroid therapy History of stress test History of ulceration Hypertension IBS (irritable bowel syndrome) Injury of back Injury of head and neck Leg cramps Migraine headache Plantar fasciitis Sleep apnea Thyroid disease Wears glasses Wears hearing aid Home Medications promethazine 25 mg tablet 25 mg PO Q8H PRN PRN Nausea #10 tabs 02/03/16 [Rx Last Taken Unknown] Omeprazole [Prilosec] 40 mg PO BID 06/22/16 [History Last Taken 03/07/22] dicyclomine 20 mg tablet 20 mg PO QHS 06/22/16 [History Last Taken Unknown] finasteride 5 mg tablet 5 mg PO DAILY 06/22/16 [History Last Taken Unknown] losartan 50 mg tablet 25 mg PO BID 06/22/16 [History Last Taken 03/07/22] propranolol 120 mg capsule,24 hr,extended release 120 mg PO DAILY 06/22/16 [History Last Taken 03/07/22] rosuvastatin 10 mg tablet 20 mg PO QHS 06/22/16 [History Last Taken Unknown] calcium-vitamin D3-vitamin K 500 mg-1,000 unit-40 mcg chewable tablet (Citracal- D3 Soft Chew) 1 ea PO DAILY 03/07/17 [History Last Taken Unknown] ascorbic acid (vitamin C) 1,000 mg tablet (Vitamin C) 1,000 mg PO DAILY 09/21/18[History Last Taken Unknown] cholecalciferol (vitamin D3) 50 mcg (2,000 unit) capsule (Vitamin D3) 1,000 unitPO BID 09/21/18 [History Last Taken Unknown] fluticasone propionate 110 mcg/actuation HFA aerosol inhaler (Flovent HFA) 1 - 2puff inhalation PRN PRN ASTHMA 09/21/21 [History Last Taken Unknown] fluticasone propionate 50 mcg/actuation nasal spray,suspension 2 spray intranasal DAILY 09/21/21 [History Last Taken Unknown] ipratropium 20 mcg-albuterol 100 mcg/actuation mist for inhalation (Combivent Respimat) 1 - 2 puff inhalation PRN PRN ASTHMA 09/21/21 [History Last Taken Unknown] trazodone 50 mg tablet 25 mg PO QHS 09/21/21 [History Last Taken Unknown] docusate sodium 100 mg capsule (Colace) 100 mg PO DAILY 10/18/21 [History Last Taken Unknown] lamotrigine 25 mg tablet (Lamictal) 100 mg PO QHS 10/18/21 [History Last Taken Unknown] aspirin 81 mg tablet 81 mg PO DAILY 12/27/21 [History Last Taken Unknown] melatonin 3 mg tablet (Melatin) 3 mg PO QHS 12/27/21 [History Last Taken Unknown] metformin 500 mg tablet 500 mg PO DAILY 12/27/21 [History Last Taken Unknown] Lactobacillus acidophilus 1.5 mg (250 million cell) capsule (Probiotic Acidophilus) 1,000 mmu cells PO BID 02/28/22 [History Last Taken Unknown] acetaminophen 325 mg tablet (Tylenol) 1,300 mg PO QHS 02/28/22 [History Last Taken Unknown] loratadine 10 mg capsule 10 mg PO DAILY PRN ALLERGIES 02/28/22 [History Last Taken Unknown] mineral oil 15 ml PO MOWEFR 02/28/22 [History Last Taken Unknown] simethicone 125 mg capsule (Gas-X Extra Strength) 125 mg PO DAILY 02/28/22 [History Last Taken Unknown] vitamin B complex 1 cap PO DAILY 02/28/22 [History Last Taken Unknown] clindamycin HCl 150 mg capsule 300 mg (2 x 150 mg) PO 4X/DAY #40 caps 07/16/22 [Rx Last Taken Unknown] meclizine 50 mg tablet (Antivert) 50 mg PO BID PRN vertigo 9 days #14 tabs 07/16/22 [Rx Last Taken Unknown] dnycov-yviibhqg-[id number] 6,000-19,000-30,000 unit capsule,delayed rel (Creon) SeeRx Instructions PO BID #320 caps 08/05/22 [Rx Last Taken Unknown] Allergy/AdvReac Type Severity Reaction Status Date / Time barium iodide Allergy Hives Verified 01/30/23 09:16 Penicillins [PCN] Allergy Unknown Verified 01/30/23 09:16 tamsulosin [From Flomax] Allergy Hives Verified 01/30/23 09:16 Surgical History History of cardiac catheterization History of esophagogastroduodenoscopy (EGD) History of Brad fundoplication History of surgery Hx laparoscopic cholecystectomy Hx of appendectomy Hx of bilateral cataract extraction Hx of colonoscopy Hx of foot surgery Hx of hemorrhoidectomy Hx of inguinal hernia surgery Hx of parotidectomy Hx of rotator cuff surgery Hx of shoulder surgery S/P CABG x 3 Social History Smoking Status: Former smoker alcohol intake: current substance use type: does not use seatbelt use: always do you feel safe at home: Yes ROS ROS ED Review of Systems ROS Unobtainable: Denies due to encephalopathy Constitutional Constitutional ED: Denies chills Eyes Eyes: Denies blurry vision ENT ENT ED: Denies ear pain Cardiovascular Cardiovascular: Denies chest pain Respiratory/Chest Respiratory/Chest: Denies cough Gastrointestinal Gastrointestinal: Denies abdominal pain Genitourinary Genitourinary ED: Denies dysuria, hematuria or urinary frequency Musculoskeletal Musculoskeletal: Reports myalgias; Denies arthralgias, back pain or neck pain Integumentary Denies Abrasions Neurologic Neurologic: Denies headache(s), paresthesias or weakness Psychiatric Psychiatric: Denies anxiety Endocrine Endocrinology: Denies cold intolerance Allergic/Immunologic Allergic/Immunologic ED: Denies mouth swelling EXAM Physical Exam Const Vital Signs: 06/03/23 09:46 Temperature 97.2 F L Temperature Source Temporal Pulse Rate 81 Respiratory Rate 18 Blood Pressure 155/105 H Blood Pressure Mean 121 Pulse Ox 98 Oxygen Delivery Method Room Air Positive well nourished and well developed General Appearance ED: well developed HEENT Reports moist mucous membranes Eyes EOMs intact bilaterally Neck supple Resp normal respiratory effort Cardio regular rate and regular rhythm GI normal to inspection, nondistended, normoactive bowel sounds Back/Spine no CVA tenderness Thoracic Spine / Upper Back: Negative for paraspinal muscle tenderness Lumbar Spine / Lower Back: Negative for lumbar spinal tenderness Extremity normal to inspection General Extremety ED: Yes tenderness; Negative for edema or other findings General Extremity: Negative for edema or other findings Neuro oriented x3 and no sensory deficits noted Sensorium / Orientation: alert Sensory Exam: No sensory level loss detected Motor Exam: strength 5/5 throughout; Negative for general weakness or strength abnormal Psych mental status grossly normal Skin no rashes or lesions noted and no wounds MDM MDM MDM Narrative Medical decision making narrative: Patient had mechanical fall and injured his right femur. X-rays were obtained. He declined pain medicine. He did not have any other injuries. He had an episode of urinary incontinence. He has a history of an enlarged prostate and he believes this was related to pain. He was not having retention or fecal incontinence. No anesthesias. No blood thinners. No back pain. Radiography Diagnostic Testing: Clinical Impression(s) from Imaging Studies Femur X-Ray 06/03/23 10:07 IMPRESSION: Normal x-ray examination of the femur. Electronically Signed: Jaun Dimas MD at 11:35 EDT , I personally reviewed the x-rays of the patient's right femur and they show no acute abnormality or fracture. Differential Diagnosis Why less likely: Likely myofascial pain. Considered fractures. X-rays were unremarkable. Considered other injuries including back injuries but he was not having any painor tenderness on exam. Considered cutaneous, neurologic, and vascular pathologies, but his exam was reassuring and these were not identified. Treatment and Re-Evaluation :: Patient declined pain medicine. We will treat at home with crutches. He has crutches. Rest, ice, elevate. Ogyw-[id number]-obzzvcf remedies for pain. Follow-up with primary care. Discharge home. Impression #1 right leg pain Discharge Plan Triage Chief Complaint: Lower Extremity Injury ED Provider: Behzad Huertas Dx/Rx/DC Orders Instructions: ED Contusion, Lower Extremity Prescriptions: No Action lamotrigine [Lamictal] 25 mg tablet 100 mg PO QHS docusate sodium [Colace] 100 mg capsule 100 mg PO DAILY Creon 6,000-19,000 -30,000 unit capsule,delayed release(DR/EC) See Rx Instructions PO BID Qty: 320 2RF Rx Instructions: take 1-2 with snacks and 2-3 with meals promethazine 25 MG tablet 25 mg PO Q8H PRN PRN (Reason: Nausea) Qty: 10 0RF losartan 50 MG tablet 25 mg PO BID Patient Comments: BP dicyclomine 20 MG tablet 20 mg PO QHS Patient Comments: IBS propranolol 120 MG capsule,extended release 24 hr 120 mg PO DAILY Patient Comments: BP finasteride 5 MG tablet 5 mg PO DAILY Patient Comments: PROSTATE rosuvastatin 10 MG tablet 20 mg PO QHS Patient Comments: CHOLESTEROL Omeprazole [Prilosec] 40 MG capsule 40 mg PO BID calcium-vitamin D3-vitamin K [Citracal-D3 Soft Chew] 1 EACH tablet,chewable 1 ea PO DAILY ascorbic acid (vitamin C) [Vitamin C] 1,000 MG tablet 1,000 mg PO DAILY cholecalciferol (vitamin D3) [Vitamin D3] 2,000 UNIT capsule 1,000 unit PO BID trazodone 50 mg Tablet 25 mg PO QHS fluticasone propionate [Flonase] 50 mcg/actuation [place],Suspension 2 spray INTRANASAL DAILY fluticasone propionate [Flovent HFA] 110 mcg/actuation HFA aerosol inhaler 1 - 2 puff INHALATION PRN PRN (Reason: ASTHMA) Combivent Respimat 20-100 mcg/actuation mist 1 - 2 puff INHALATION PRN PRN (Reason: ASTHMA) metformin 500 mg Tablet 500 mg PO DAILY melatonin [Melatin] 3 mg Tablet 3 mg PO QHS aspirin 81 mg Tablet 81 mg PO DAILY mineral oil Oil 15 ml PO MOWEFR acetaminophen [Tylenol] 325 mg Tablet 1,300 mg PO QHS simethicone [Gas-X Extra Strength] 125 mg Capsule 125 mg PO DAILY vitamin B complex Capsule 1 cap PO DAILY loratadine 10 mg Capsule 10 mg PO DAILY PRN (Reason: ALLERGIES) Probiotic Acidophilus 1.5 mg (250 million cell) Capsule 1,000 mmu cells PO BID clindamycin HCl 150 mg capsule 300 mg PO 4X/DAY Qty: 40 0RF Antivert 50 mg tablet 50 mg PO BID PRN (Reason: vertigo) 9 Days Qty: 14 0RF Primary Care Provider: Nevin Marquez Referrals: Nevin Marquez MD [Primary Care Provider] - Disposition Disposition: Home, Self Care What to do if you have Problems For any increased pain, shortness of breath, bleeding, nausea or vomiting, chestpain, or any unexpected problems, contact your Primary Care Provider. Call [facility] ([phone]) or report to the closest Emergency Room. Call 911 if necessary. 06/03/23 1149 <Electronically signed by Behzad Huertas MD> Cosigner Signature (if applicable): CC: Dr. 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 Essential hypertension Unspecified essential hypertension Mixed hyperlipidemia [facility] in [place] encounter [place]* Diagnosis Onset Date Resolution Status GERD (gastroesophageal reflux disease) acute GERD (gastroesophageal reflux disease) acute IBS (irritable bowel syndrome) acute [facility] Work Phone: Evaluation note* Diagnosis Need for vaccination- Primary Need for prophylactic vaccination and inoculation against unspecified single disease [facility]* Diagnosis Adjustment disorder with mixed anxiety and depressed mood- Primary documented in this encounter [facility]* Diagnosis Onset Date Resolution Status GERD (gastroesophageal reflux disease) acute IBS (irritable bowel syndrome) acute [facility] Work Phone: Evaluation note* Diagnosis Psychophysiological insomnia- Primary Persistent disorder of initiating or maintaining sleep Primary hypertension Unspecified essential hypertension Current moderate episode of major depressive disorder, unspecified whether recurrent (HCC) Chronic midline low back pain, unspecified whether sciatica present S/P insertion of spinal cord stimulator [facility]* Diagnosis Adjustment disorder with mixed anxiety and depressed mood- Primary documented in this encounter [facility]* Diagnosis Urinary frequency- Primary Burning with urination Dysuria documented in this encounter [facility]* Diagnosis Adjustment disorder with mixed anxiety and depressed mood- Primary documented in this encounter [facility]* Diagnosis Need for vaccination- Primary Need for prophylactic vaccination and inoculation against unspecified single disease [facility]* Diagnosis IFG (impaired fasting glucose)- Primary Impaired fasting glucose Encounter for long-term current use of medication ALFONSO on CPAP Obstructive sleep apnea (adult) (pediatric) Nocturnal hypoxemia Hypoxemia Need for vaccination Need for prophylactic vaccination and inoculation against unspecified single disease documented in this encounter [facility] note* Diagnosis 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 prostate with urinary obstruction and other lower urinary tract symptoms (LUTS) Overactive bladder Hypertonicity of bladder documented in this encounter [facility] note* Diagnosis Witnessed episode of apnea- Primary Excessive daytime sleepiness Sleep disturbance Sleep disturbance, unspecified documented in this encounter [facility] note* Diagnosis 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 prostate with urinary obstruction and other lower urinary tract symptoms (LUTS) documented in this encounter [facility] noteNo assessment information [facility] Work Phone: Evaluation note* Diagnosis Current moderate episode of major depressive disorder, unspecified whether recurrent (HCC)- Primary documented in this encounter [facility] note* Diagnosis Acute pharyngitis, unspecified etiology- Primary documented in this encounter [facility] note* Diagnosis ALFONSO on CPAP- Primary Obstructive sleep apnea (adult) (pediatric) Chronic rhinitis Pancreatic insufficiency Other specified disease of pancreas IFG (impaired fasting glucose) Impaired fasting glucose Witnessed episode of apnea Psychophysiological insomnia Persistent disorder of initiating or maintaining sleep Current moderate episode of major depressive disorder, unspecified whether recurrent (HCC) Nocturnal hypoxemia Hypoxemia documented in this encounter [facility] note* Diagnosis Onset Date Resolution Status Flatulence/wind chronic GERD (gastroesophageal reflux disease) chronic IBS (irritable bowel syndrome) [facility] Work Phone: Evaluation note* Diagnosis Pancreatic insufficiency- Primary Other specified disease of pancreas documented in this encounter [facility] note* Diagnosis Upper airway resistance syndrome- Primary Other organic sleep disorders documented in this encounter [facility] note* Diagnosis Primary hypertension- Primary Unspecified essential hypertension IFG (impaired fasting glucose) Impaired fasting glucose Pancreatic insufficiency Other specified disease of pancreas ALFONSO on CPAP Obstructive sleep apnea (adult) (pediatric) Psychophysiological insomnia Persistent disorder of initiating or maintaining sleep Current moderate episode of major depressive disorder, unspecified whether recurrent (HCC) DDD (degenerative disc disease), cervical Degeneration of cervical intervertebral disc BPH with obstruction/lower urinary tract symptoms Hypertrophy of prostate with urinary obstruction and other lower urinary tract symptoms (LUTS) Nocturia more than twice per night Mucopurulent chronic bronchitis (HCC) Mucopurulent chronic bronchitis Prostate cancer screening Special screening for malignant neoplasm of prostate Encounter for long-term current use of medication [facility]* Diagnosis Screening for ischemic heart disease- Primary [facility] Diagnosis Onset Date Resolution Status Constipation acute Flatulence/wind chronic GERD (gastroesophageal reflux disease) chronic IBS (irritable bowel syndrome) chronic [facility] Work Phone: Evaluation note* Diagnosis BPH with obstruction/lower urinary tract symptoms Hypertrophy of prostate with urinary obstruction and other lower urinary tract symptoms (LUTS) [facility]* Diagnosis Essential hypertension- Primary Unspecified essential hypertension Mixed hyperlipidemia IFG (impaired fasting glucose) Impaired fasting glucose Psychophysiological insomnia Persistent disorder of initiating or maintaining sleep Constipation, unspecified constipation type [facility] Diagnosis Pancreatic insufficiency Other specified disease of pancreas [facility]* Diagnosis Hearing loss, unspecified hearing loss type, unspecified laterality- Primary [facility]* Diagnosis Onset Date Resolution Status Chronic constipation chronic Flatulence/wind chronic GERD (gastroesophageal reflux disease) chronic IBS (irritable bowel syndrome) [facility] Work Phone: Evaluation note* Diagnosis Tendinosis of quadriceps tendon- Primary Muscle strain of right thigh, subsequent encounter Effusion, right knee [facility]* Diagnosis Sensorineural hearing loss, bilateral- Primary Tinnitus, bilateral Unspecified tinnitus [facility]* Diagnosis Tendinosis of quadriceps tendon- Primary Muscle strain of right thigh, subsequent encounter Effusion, right knee [facility]* Diagnosis 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 prostate with urinary obstruction and other lower urinary tract symptoms (LUTS) [facility]* Diagnosis Essential hypertension- Primary Unspecified essential hypertension Mixed hyperlipidemia Tendinosis of quadriceps tendon Elevated PSA Elevated prostate specific antigen (PSA) Psychophysiological insomnia Persistent disorder of initiating or maintaining sleep Need for influenza vaccination Need for prophylactic vaccination and inoculation against influenza documented [facility] this [facility]* Diagnosis 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 prostate with urinary obstruction and other lower urinary tract symptoms (LUTS) documented [facility] this [facility]* Diagnosis Sensorineural hearing loss, bilateral- Primary Tinnitus, bilateral Unspecified tinnitus documented [facility]* Diagnosis Sensorineural hearing loss, bilateral- Primary [facility]* Diagnosis Psychophysiological insomnia Persistent disorder of initiating or maintaining sleep Screening for ischemic heart disease- Primary [facility] this [facility]* Diagnosis Ascending aorta dilatation (HCC)- Primary Thoracic aortic ectasia SVT (supraventricular tachycardia) ([facility]) Other specified cardiac dysrhythmias Essential hypertension Unspecified essential hypertension Mixed hyperlipidemia S/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 documented in this [facility]* Diagnosis Spinal stenosis of lumbar region, unspecified whether neurogenic claudication present- Primary Right leg pain Pain in limb Type 2 diabetes mellitus without complication, without long-term current use of insulin ([facility]) ALFONSO (obstructive sleep apnea) Obstructive sleep apnea (adult) (pediatric) Essential hypertension Unspecified essential hypertension Mixed hyperlipidemia documented in this [facility]* Diagnosis Spinal stenosis of lumbar region, unspecified whether neurogenic claudication present- Primary Right leg pain Pain in limb documented [facility] this [facility]* Diagnosis Spinal stenosis of lumbar region, unspecified whether neurogenic claudication present- Primary Right leg pain Pain in limb documented [facility] this [facility]* Diagnosis Spinal stenosis of lumbar region, unspecified whether neurogenic claudication present- Primary Right leg pain Pain in limb documented [facility] this [facility]* Diagnosis 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 prostate with urinary obstruction and other lower urinary tract symptoms (LUTS) documented [facility] this [facility]* Diagnosis Psychophysiological insomnia Persistent disorder of initiating or maintaining sleep documented [facility] this [facility]* Diagnosis BPH with obstruction/lower urinary tract symptoms [N40.1, N13.8]- Primary Hypertrophy of prostate with urinary obstruction and other lower urinary tract symptoms (LUTS) Preop testing Preoperative examination, unspecified Coronary artery disease involving [place] coronary artery of [place] heart with unstable angina pectoris (HCC) Mixed hyperlipidemia Essential hypertension Unspecified essential hypertension SVT (supraventricular tachycardia) (HCC) Other specified cardiac dysrhythmias ALFONSO (obstructive sleep apnea), REM dependent Obstructive sleep apnea (adult) (pediatric) Gastroesophageal reflux disease, unspecified whether esophagitis present Type 2 diabetes mellitus without complication, without long-term current use of insulin (HCC) Ascending aorta dilatation (HCC) Thoracic aortic ectasia Pain- Primary Generalized pain [facility] this [facility]* Diagnosis BPH with obstruction/lower urinary tract symptoms [N40.1, N13.8]- Primary Hypertrophy of prostate with urinary obstruction and other lower urinary tract symptoms (LUTS) Preop testing Preoperative examination, unspecified Coronary artery disease involving [place] coronary artery of [place] heart with unstable angina pectoris (HCC) Mixed hyperlipidemia Essential hypertension Unspecified essential hypertension SVT (supraventricular tachycardia) (HCC) Other specified cardiac dysrhythmias ALFONSO (obstructive sleep apnea), REM dependent Obstructive sleep apnea (adult) (pediatric) Gastroesophageal reflux disease, unspecified whether esophagitis present Type 2 diabetes mellitus without complication, without long-term current use of insulin (HCC) Ascending aorta dilatation (HCC) Thoracic aortic ectasia Primary osteoarthritis of right knee- Primary Primary localized osteoarthrosis, lower leg documented [facility] this [facility]* Diagnosis BPH with obstruction/lower urinary tract symptoms [N40.1, N13.8]- Primary Hypertrophy of prostate with urinary obstruction and other lower urinary tract symptoms (LUTS) Preop testing Preoperative examination, unspecified Coronary artery disease involving [place] coronary artery of [place] heart with unstable angina pectoris (HCC) Mixed hyperlipidemia Essential hypertension Unspecified essential hypertension SVT (supraventricular tachycardia) (HCC) Other specified cardiac dysrhythmias ALFONSO (obstructive sleep apnea), REM dependent Obstructive sleep apnea (adult) (pediatric) Gastroesophageal reflux disease, unspecified whether esophagitis present Type 2 diabetes mellitus without complication, without long-term current use of insulin (HCC) Ascending aorta dilatation (HCC) Thoracic aortic ectasia Pain Generalized pain documented in this [facility]* Diagnosis BPH with obstruction/lower urinary tract symptoms [N40.1, N13.8]- Primary Hypertrophy of prostate with urinary obstruction and other lower urinary tract symptoms (LUTS) Preop testing Preoperative examination, unspecified Coronary artery disease involving [place] coronary artery of [place] heart with unstable angina pectoris (HCC) Mixed hyperlipidemia Essential hypertension Unspecified essential hypertension SVT (supraventricular tachycardia) (HCC) Other specified cardiac dysrhythmias ALFONSO (obstructive sleep apnea), REM dependent Obstructive sleep apnea (adult) (pediatric) Gastroesophageal reflux disease, unspecified whether esophagitis present Type 2 diabetes mellitus without complication, without long-term current use of insulin (HCC) Ascending aorta dilatation (HCC) Thoracic aortic ectasia Type 2 diabetes mellitus without complication, without long-term current use of insulin (HCC)- Primary Essential hypertension Unspecified essential hypertension Mixed hyperlipidemia Screening for diabetic retinopathy Screening for other eye conditions Encounter for screening examination for other mental health and behavioral disorders Psychophysiological insomnia Persistent disorder of initiating or maintaining sleep Spinal stenosis of lumbar region, unspecified whether neurogenic claudication present Right leg pain Pain in limb Encounter for immunization Need for other specified prophylactic vaccination against single bacterial disease documented in this [facility]* Diagnosis BPH with obstruction/lower urinary tract symptoms [N40.1, N13.8]- Primary Hypertrophy of prostate with urinary obstruction and other lower urinary tract symptoms (LUTS) Preop testing Preoperative examination, unspecified Coronary artery disease involving [place] coronary artery of [place] heart with unstable angina pectoris (HCC) Mixed hyperlipidemia Essential hypertension Unspecified essential hypertension SVT (supraventricular tachycardia) (HCC) Other specified cardiac dysrhythmias ALFONSO (obstructive sleep apnea), REM dependent Obstructive sleep apnea (adult) (pediatric) Gastroesophageal reflux disease, unspecified whether esophagitis present Type 2 diabetes mellitus without complication, without long-term current use of insulin (HCC) Ascending aorta dilatation (HCC) Thoracic aortic ectasia Atherosclerosis of [place] artery of both lower extremities with intermittent claudication (HCC)- Primary Atherosclerosis of [place] arteries of the extremities with intermittent claudication Mixed hyperlipidemia Primary hypertension Unspecified essential hypertension S/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 [facility]* Diagnosis BPH with obstruction/lower urinary tract symptoms [N40.1, N13.8]- Primary Hypertrophy of prostate with urinary obstruction and other lower urinary tract symptoms (LUTS) Preop testing Preoperative examination, unspecified Coronary artery disease involving [place] coronary artery of [place] heart with unstable angina pectoris (HCC) Mixed hyperlipidemia Essential hypertension Unspecified essential hypertension SVT (supraventricular tachycardia) (HCC) Other specified cardiac dysrhythmias ALFONSO (obstructive sleep apnea), REM dependent Obstructive sleep apnea (adult) (pediatric) Gastroesophageal reflux disease, unspecified whether esophagitis present Type 2 diabetes mellitus without complication, without long-term current use of insulin (HCC) Ascending aorta dilatation (HCC) Thoracic aortic ectasia Infrarenal abdominal aortic aneurysm (AAA) without rupture (HCC)- Primary Dizziness Dizziness and giddiness Claudication (HCC) Peripheral vascular disease, unspecified [facility]* Diagnosis BPH with obstruction/lower urinary tract symptoms [N40.1, N13.8]- Primary Hypertrophy of prostate with urinary obstruction and other lower urinary tract symptoms (LUTS) Preop testing Preoperative examination, unspecified Coronary artery disease involving [place] coronary artery of [place] heart with unstable angina pectoris (HCC) Mixed hyperlipidemia Essential hypertension Unspecified essential hypertension SVT (supraventricular tachycardia) (HCC) Other specified cardiac dysrhythmias ALFONSO (obstructive sleep apnea), REM dependent Obstructive sleep apnea (adult) (pediatric) Gastroesophageal reflux disease, unspecified whether esophagitis present Type 2 diabetes mellitus without complication, without long-term current use of insulin (HCC) Ascending aorta dilatation (HCC) Thoracic aortic ectasia Preop examination- Primary Preoperative examination, unspecified Spinal stenosis of lumbar region, unspecified whether neurogenic claudication present DDD (degenerative disc disease), cervical Degeneration of cervical intervertebral disc Polyarthralgia Pain in joint, multiple sites Alternating constipation and diarrhea Other symptoms involving digestive system Ectropion of left lower eyelid, unspecified ectropion type documented in this [facility]* Diagnosis BPH with obstruction/lower urinary tract symptoms [N40.1, N13.8]- Primary Hypertrophy of prostate with urinary obstruction and other lower urinary tract symptoms (LUTS) Preop testing Preoperative examination, unspecified Coronary artery disease involving [place] coronary artery of [place] heart with unstable angina pectoris (HCC) Mixed hyperlipidemia Essential hypertension Unspecified essential hypertension SVT (supraventricular tachycardia) (HCC) Other specified cardiac dysrhythmias ALFONSO (obstructive sleep apnea), REM dependent Obstructive sleep apnea (adult) (pediatric) Gastroesophageal reflux disease, unspecified whether esophagitis present Type 2 diabetes mellitus without complication, without long-term current use of insulin (HCC) Ascending aorta dilatation (HCC) Thoracic aortic ectasia Infrarenal abdominal aortic aneurysm (AAA) without rupture ([facility])- Primary [facility]* Diagnosis BPH with obstruction/lower urinary tract symptoms [N40.1, N13.8]- Primary Hypertrophy of prostate with urinary obstruction and other lower urinary tract symptoms (LUTS) Preop testing Preoperative examination, unspecified Coronary artery disease involving [place] coronary artery of [place] heart with unstable angina pectoris (HCC) Mixed hyperlipidemia Essential hypertension Unspecified essential hypertension SVT (supraventricular tachycardia) (HCC) Other specified cardiac dysrhythmias ALFONSO (obstructive sleep apnea), REM dependent Obstructive sleep apnea (adult) (pediatric) Gastroesophageal reflux disease, unspecified whether esophagitis present Type 2 diabetes mellitus without complication, without long-term current use of insulin (HCC) Ascending aorta dilatation Thoracic aortic ectasia ALFONSO (obstructive sleep apnea)- Primary Obstructive sleep apnea (adult) (pediatric) documented in this encounter [facility] note* Diagnosis BPH with obstruction/lower urinary tract symptoms [N40.1, N13.8]- Primary Hypertrophy of prostate with urinary obstruction and other lower urinary tract symptoms (LUTS) Preop testing Preoperative examination, unspecified Coronary artery disease involving [place] coronary artery of [place] heart with unstable angina pectoris ([facility]) Mixed hyperlipidemia Essential hypertension Unspecified essential hypertension SVT (supraventricular tachycardia) ([facility]) Other specified cardiac dysrhythmias ALFONSO (obstructive sleep apnea), REM dependent Obstructive sleep apnea (adult) (pediatric) Gastroesophageal reflux disease, unspecified whether esophagitis present Type 2 diabetes mellitus without complication, without long-term current use of insulin ([facility]) Ascending aorta dilatation Thoracic aortic ectasia Nocturnal leg cramps- Primary Sleep related leg cramps Type 2 diabetes mellitus without complication, without long-term current use of insulin ([facility]) ALFONSO (obstructive sleep apnea), REM dependent Obstructive sleep apnea (adult) (pediatric) Alternating constipation and diarrhea Other symptoms involving digestive system Psychophysiological insomnia Persistent disorder of initiating or maintaining sleep Restless legs syndrome Restless legs syndrome (RLS) documented in this encounter [facility] note* Diagnosis BPH with obstruction/lower urinary tract symptoms [N40.1, N13.8]- Primary Hypertrophy of prostate with urinary obstruction and other lower urinary tract symptoms (LUTS) Preop testing Preoperative examination, unspecified Coronary artery disease involving [place] coronary artery of [place] heart with unstable angina pectoris (HCC) Mixed hyperlipidemia Essential hypertension Unspecified essential hypertension SVT (supraventricular tachycardia) ([facility]) Other specified cardiac dysrhythmias ALFONSO (obstructive sleep apnea), REM dependent Obstructive sleep apnea (adult) (pediatric) Gastroesophageal reflux disease, unspecified whether esophagitis present Type 2 diabetes mellitus without complication, without long-term current use of insulin ([facility]) Ascending aorta dilatation Thoracic aortic ectasia Type 2 diabetes mellitus without complication, without long-term current use of insulin (HCC)- Primary Primary hypertension Unspecified essential hypertension Psychophysiological insomnia Persistent disorder of initiating or maintaining sleep Mixed hyperlipidemia Spinal stenosis of lumbar region, unspecified whether neurogenic claudication present Chronic midline low back pain, unspecified whether sciatica present documented in this encounter [facility] for referral (narrative)* Outpatient Procedure (Routine) - Closed Specialty Diagnoses / Procedures Referred By Contac t [facility] Diagnoses Screening for ischemic heart disease Procedures ECG COMPLETE ECG ROUTINE ECG W/LEAST 12 LDS W/I&R Emiliana Estevez MD [address] [place] [address] [facility] [place] [address] [place] [address] Referral ID Status Reason Start Date Expiration Date V isits Requested Visits Authorized [id number] Closed Auto-Generate d Referral 12/28/2022 12/28/2023 1 1 [facility] for referral (narrative)* Outpatient Procedure (Routine) - Pending Review Specialty Diagnoses / Procedures Referred By Contac t Referred To Contact [facility] Diagnoses Screening for ischemic heart disease Procedures ECG COMPLETE ECG ROUTINE ECG W/LEAST 12 LDS W/I&R Emiliana Estevez MD [address] [place] [address] [facility] [place] [id number] [place] [address] Referral ID Status Reason Start Date Expiration Date Visits Requested Visits Authorized [id number] Pending Review Auto-Generat ed Referral 01/15/2024 01/11/2025 1 1 [facility] for referral (narrative)* Diagnostic Procedure Only (Routine) - Authorized Specialty Diagnoses / Procedures Referred By Contac t Referred To Contact XR IMAGING Diagnoses Pain Procedures XR KNEE GENERAL 4V AP BOTH/PA BOTH/LAT/MERC RIGHT RADIOLOGIC EXAM KNEE COMPLETE 4/MORE VIEWS Suzie Ortega PA-C [id number] [place] [address] [place] [address] Referral ID Status Reason Start Date Expiration Date Visits Requested Visits Authorized [id number] Authorized Auto-Generat ed Referral 08/15/2025 1 1 [facility] for referral (narrative)* Diagnostic Procedure Only (Routine) - Closed Specialty Diagnoses / Procedures Referred By Contac t Referred To Contact XR IMAGING Diagnoses Pain Procedures XR KNEE GENERAL 4V AP BOTH/PA BOTH/LAT/MERC RIGHT RADIOLOGIC EXAM KNEE COMPLETE 4/MORE VIEWS Suzie Ortega PA-C [id number] [place] [address] [place] [address] Referral ID Status Reason Start Date Expiration Date V isits Requested Visits Authorized [id number] Closed Auto-Generate d Referral 07/16/2024 08/15/2025 1 1 [facility] for referral (narrative)* Outpatient Procedure (Routine) - Authorized Specialty Diagnoses / Procedures Referred By Contac t Referred To Contact [facility] Diagnoses Atherosclerosis of [place] artery of both lower extremities with intermittent claudication (HCC) Procedures PVR LEG [facility] NON-INVASIVE PHYSIOLOGIC STUDY EXTREMITY 3 Emiliana Du MD [address] [facility] [place] [address] [facility] [place] [address] [place] [address] Referral ID Status Reason Start Date Expiration Date Visits Requested Visits Authorized [id number] Authorized Auto-Generat ed Referral 08/19/2024 08/12/2025 1 1 [facility] for referral (narrative)* Outpatient Procedure (Routine) - Authorized Specialty Diagnoses / Procedures Referred By Contac t Referred To Contact [facility] Diagnoses Claudication (HCC) Procedures PVR LEG W/EXC [facility] N-INVAS PHYSIOLOGIC STD LXTR ART COMPL BI Linn Thomas, DO [address] [place] [address] [address] Referral ID Status Reason Start Date Expiration Date Visits Requested Visits Authorized [id number] Authorized Auto-Generat ed Referral 4 08/13/2025 1 1 * Outpatient Procedure (Routine) - Authorized Specialty Diagnoses / Procedures Referred By Contac t Referred To Contact [facility] Diagnoses Dizziness Procedures US CAROTID ARTERIES [facility] DUPLEX SCAN EXTRACRANIAL ART COMPL BI STUDY Linn Thomas, DO [address] [place] [address] [address] Referral ID Status Reason Start Date Expiration Date Visits Requested Visits Authorized [id number] Authorized Auto-Generat ed Referral 4 08/13/2025 1 1 * Outpatient Procedure (Routine) - Authorized Specialty Diagnoses / Procedures Referred By Contac t Referred To Contact [facility] Diagnoses Infrarenal abdominal aortic aneurysm (AAA) without rupture (HCC) Procedures US ABD AORTA COMPLETE VAS LAB DUP-SCAN AORTA IVC ILIAC VASCL/BPGS COMPLETE Linn Thomas, DO [address] [place] [address] [address] Referral ID Status Reason Start Date Expiration Date Visits Requested Visits Authorized [id number] Authorized Auto-Generat ed Referral 4 08/13/2025 1 1 [facility] for referral (narrative)* Outpatient Procedure (Routine) - Authorized Specialty Diagnoses / Procedures Referred By Contac t Referred To Contact [facility] Diagnoses Infrarenal abdominal aortic aneurysm (AAA) without rupture (HCC) Procedures US ABD AORTA COMPLETE VAS LAB DUP-SCAN AORTA IVC ILIAC VASCL/BPGS COMPLETE Linn Thomas DO [address] [place] [address] [facility] [address] [place] [address] Referral ID Status Reason Start Date Expiration Date Visits Requested Visits Authorized [id number] Authorized Auto-Generat ed Referral 10/22/2024 10/22/2025 1 1 [place]No reason for referral information availableWPro[facility] Work Phone: Reason for visit Narrative* Diagnostic Procedure Only (Routine) - Closed Specialty Diagnoses / Procedures Referred By Rajinder t Referred To Contact XR IMAGING Diagnoses Pain Procedures XR KNEE GENERAL 4V AP BOTH/PA BOTH/LAT/MERC RIGHT RADIOLOGIC EXAM KNEE COMPLETE 4/MORE VIEWS Suzie Ortega, MANASA [address] [place] [address] Xr Imaging [facility] Referral ID Status Reason Start Date Expiration Date V isits Requested Visits Authorized [id number] Closed Auto-Generate d Referral 07/16/2024 08/15/2025 1 1 [place] Summary Purpose Family History No Family History Records FoundNo Family History Records FoundNo Family History Records FoundNo Family History Records FoundNo Family History Records Found Advance Directives No Advanced Directives Records FoundDocuments on File Type Date Recorded 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 Advance Directive(s) 10/25/2021 5:55 AM Advance Directive(s) 08/23/2021 8:35 AM Advance Directive(s) 08/18/2021 9:38 AM Advance Directive(s) 04/12/2021 12:19 PM Advance Directive(s) 03/26/2018 12:55 PM Advance Directive(s) 10/19/2011 12:00 AM Advance Directive Response Recorded Date/ Time Name of Medical Power of Nascar Racer SARAH SPANN September 21, 2021 12:11pm Advance Directives Yes June 22, 2016 9:30am Living Will Yes Chantal 11th, 2022 2:42pm Power of Nascar Racer Yes December 27 2:42pm Advance Directive Response Recorded Date/ Time Advance Directives Yes June 22, 2016 9:30am Living Will Yes December 27, 2021 2:42pm Power of Nascar Racer Yes December 27 2:42pm Advance Directive Response Recorded Date/ Time Advance Directives on File Yes December 27, 2021 2:42pm Name of Medical Power of Nascar Racer SON February 28, 2022 11:17am Advance Directives Yes June 22, 2016 9:30am Living Will Yes February 28, 2022 11:17am Power of Nascar Racer Yes February 28 11:17am Documents on File Type Date Recorded 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 Advance Directive(s) 08/18/2021 9:38 AM Advance Directive(s) 04/12/2021 12:19 PM Advance Directive(s) 10/19/2011 Advance Directive Response Recorded Date/ Time Advance Directives Yes June 22, 2016 9:30am Living Will No July 16 4:47pm Power of Nascar Racer No July 16, 2022 4:47pm Advance Directive Response Recorded Date/ Time Advance Directives Yes June 22, 2016 8:30am Living Will No July 16 3:47pm Power of Nascar Racer No July 16, 2022 3:47pm Documents on File Type Date Recorded 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 Advance Directive(s) 08/18/2021 9:38 AM Advance Directive(s) 04/12/2021 12:19 PM Advance Directive(s) 10/19/2011 Advance Directive Response Recorded Date/ Time Advance Directives Yes June 22, 2016 9:30am Living Will No June 03, 2023 10:14am Power of Nascar Racer No May 10:14am Advance Directive Response Recorded Date/ Time Advance Directives Yes June 22, 2016 8:30am Living Will No June 03, 2023 9:14am Power of Nascar Racer No May 9:14am Advance Directive Response Recorded Date/ Time Living Will No June 03, 2023 10:14am Power of Nascar Racer No May 10:14am Advance Directives Yes June 22, 2016 9:30am Chief Complaint and Reason for Visit Chief Complaint ESOPHAGEAL STRICTURE GASTROESOPHAGEAL REFLUX DISEASE 2 W FU PROC CABG CABG S/P CABG Reason for Visit GERD (gastroesophage al reflux disease) GERD (gastroesophageal reflux disease) IBS (irritable bowel syndrome) Chief Complaint CABG CABG S/P CABG TYPE 2 DM ISSUES Reason for Visit GERD (gastroesophage al reflux disease) IBS (irritable bowel syndrome) Chief Complaint CABG CABG S/P CABG TYPE 2 DM ISSUES 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 Reason for Visit GERD (gastroesophage al reflux disease) IBS (irritable bowel syndrome) Chief Complaint TYPE 2 DM SORE THROAT Chief Complaint SORE THROAT 6 MO FU ALFONSO Reason for Visit Flatulence/wind GERD (gastroesophageal reflux disease) IBS (irritable bowel syndrome) Chief Complaint shoulder pain, rotat or cuff disorder Chief Complaint shoulder pain, rotat or cuff disorder 6 MO FU Encounter for preprocedural cardiovascular examina Reason for Visit Constipation Flatulence/wind GERD (gastroesophageal reflux disease) IBS (irritable bowel syndrome) Chief Complaint Encounter for prepro cedural cardiovascular examina PREOP 3 M FU LOWER EXT Reason for Visit Chronic constipation Flatulence/wind GERD (gastroesophageal reflux disease) IBS (irritable bowel syndrome) Chief Complaint Encounter for prepro cedural cardiovascular examina PREOP 3 M FU LOWER EXT STAT RIGHT FEMUR/THIGH SWELLING PAIN Reason for Visit Chronic constipation Flatulence/wind GERD (gastroesophageal reflux disease) IBS (irritable bowel syndrome) Chief Complaint 6 MO FU K58.9 Irritable bowel syndrome without diarrhea Reason for Visit Chronic constipation Flatulence/wind GERD (gastroesophageal reflux disease) IBS (irritable bowel syndrome) Chief Complaint 6 MO FU K58.9 Irritable bowel syndrome without diarrhea LUMBAR RAD Reason for Visit Chronic constipation Flatulence/wind GERD (gastroesophageal reflux disease) IBS (irritable bowel syndrome) Chief Complaint Admit Date 6 M FU November 05, 2024 10:13am THORAC[employer] AND [employer]IP AND PELVIS Februa 2024 12:57pm Reason for Visit Admit Date Chronic constipation November 05, 2024 10:13am Flatulence/wind November 05, 2024 10:13am GERD (gastroesophageal reflux disease) F ebruary 2024 10:13am IBS (irritable bowel syndrome) November 05, 2024 10:13am Constipation November 05, 2024 10:13am Reason for Referral Specialty Diagnoses / Procedures Referred By Rajinder mauricio Referred To Contact Ent - Otolaryngology Diagnoses Upper airway resistance syndrome Procedures CONSULT TO ENT OFFICE/OUTPATIENT [facility] 60-74 MINUTES Nevin Marquez MD [address] [place] [address] Referral ID Status Reason Start Date Expiration Date Visits Requested Visits Authorized [id number] Authorized PCP Requested Referral 09/06/2023 1 1 Specialty Diagnoses / Procedures Referred By Contac t Referred To Contact Diagnoses Hearing loss, unspecified hearing loss type, unspecified laterality Procedures HEARING TEST/AUDIOGRAM COMPRE AUDIOMETRY THRESHOLD EVAL Krystal Palacios, LEAD SOFTWARE DEVELOPMENT ENGINEER.RESPITE WORKER [address] [place] [address] [facility] [address] [place] [address] Referral ID Status Reason Start Date Expiration Date Visits Requested Visits Authorized [id number] Pending Review Auto-Generat ed Referral 04/18/2023 04/18/2024 1 1 Specialty Diagnoses / Procedures Referred By Contac t Referred To Contact Orthopedics Diagnoses Tendinosis of quadriceps tendon Muscle strain of right thigh, subsequent encounter Effusion, right knee Procedures CONSULT TO ORTHOPAEDICS OFFICE/OUTPATIENT [facility] 60-74 MINUTES Sharad Brennan, LEAD SOFTWARE DEVELOPMENT ENGINEER.STAFF PSYCHOLOGIST [address] [place] [address] Referral ID Status Reason Start Date Expiration Date Visits Requested Visits Authorized [id number] Authorized PCP Requested Referral 06/09/2023 06/08/2024 1 1 Specialty Diagnoses / Procedures Referred By Contac t Referred To Contact [facility] Diagnoses Spinal stenosis of lumbar region, unspecified whether neurogenic claudication present Right leg pain Procedures CONSULT TO PHYSICAL THERAPY PHYSICAL THERAPY EVALUATION HIGH COMPLEX 45 MINS Nevin Marquez MD [address] [place] [address] [facility] [address] [place] [address] Referral ID Status Reason Start Date Expiration Date Visits Requested Visits Authorized [id number] Authorized PCP Requested Referral Auto-Generate d Referral 01/22/2024 01/21/2025 99 99 Medications Administered Section Inactive Administered Medications - up to 3 most recent administrations Medication Order MAR Action Action Date Dose Rate Site lidocaine 2 % topical gel (XYLOCAINE) URETHRAL, ONCE, 1 dose, On Mon08/29/23 at 1000, FOR EXTERNAL USE ONLY APPLY TO: PENIS Given 08/29/2023 9:35 AM EST 11 mL Other sulfamethoxazole-trimethoprim 800-160 mg 1 tablet (BACTRIM DS) 1 tablet, ORAL, ONCE, 1 dose, On Mon08/29/23 at 1000, Antimicrobial indication: Empiric Given 08/29/2023 9:30 AM EST 1 tablet Oral Additional Source Comments (unrecognized sect ion and content) No Status Records FoundNo Status Records FoundNo Status Records FoundNo Status Records FoundNo Status Records Found INFORMATION SOURCE (unrecogn ized section and content) DATE CREATED AUTHOR 03/12/2018 [facility] DATE CREATED AUTHOR AUTHOR'S ORGANIZ ATION 09/24/2021 [facility] DATE CREATED AUTHOR AUTHOR'S ORGANIZ ATION 09/04/2024 [facility] DATE CREATED AUTHOR AUTHOR'S ORGANIZ ATION 05/27/2025 [facility] DATE CREATED AUTHOR AUTHOR'S ORGANIZ ATION 06/03/[address] [facility] Source Comments (unrecognize d section and content) In the event this informatio n is protected by the Federal Confidentiality of Alcohol and Drug Abuse Patient Records regulations: The Federal rules restrict any use of the information to criminally investigate or prosecute any alcohol or drug abuse patient.[place] the event this information is protected by the Federal Confidentiality of Alcohol and Drug Abuse Patient Records regulations: The Federal rules restrict any use of the information to criminally investigate or prosecute any alcohol or drug abuse patient.[place]In the event this information is protected by the Federal Confidentiality of Alcohol and Drug Abuse Patient Records regulations: The Federal rules restrict any use of the information to criminally investigate or prosecute any alcohol or drug abuse patient.[place]In the event this information is protected by the Federal Confidentiality of Alcohol and Drug Abuse Patient Records regulations: The Federal rules restrict any use of the information to criminally investigate or prosecute any alcohol or drug abuse patient.[place]In the event this information is protected by the Federal Confidentiality of Alcohol and Drug Abuse Patient Records regulations: The Federal rules restrict any use of the information to criminally investigate or prosecute any alcohol or drug abuse patient.[place]In the event this information is protected by the Federal Confidentiality of Alcohol and Drug Abuse Patient Records regulations: The Federal rules restrict any use of the information to criminally investigate or prosecute any alcohol or drug abuse patient.[place]In the event this information is protected by the Federal Confidentiality of Alcohol and Drug Abuse Patient Records regulations: The Federal rules restrict any use of the information to criminally investigate or prosecute any alcohol or drug abuse patient.[place]In the event this information is protected by the Federal Confidentiality of Alcohol and Drug Abuse Patient Records regulations: The Federal rules restrict any use of the information to criminally investigate or prosecute any alcohol or drug abuse patient.[place]In the event this information is protected by the Federal Confidentiality of Alcohol and Drug Abuse Patient Records regulations: The Federal rules restrict any use of the information to criminally investigate or prosecute any alcohol or drug abuse patient.[place]In the event this information is protected by the Federal Confidentiality of Alcohol and Drug Abuse Patient Records regulations: The Federal rules restrict any use of the information to criminally investigate or prosecute any alcohol or drug abuse patient.[place]In the event this information is protected by the Federal Confidentiality of Alcohol and Drug Abuse Patient Records regulations: The Federal rules restrict any use of the information to criminally investigate or prosecute any alcohol or drug abuse patient.[place]In the event this information is protected by the Federal Confidentiality of Alcohol and Drug Abuse Patient Records regulations: The Federal rules restrict any use of the information to criminally investigate or prosecute any alcohol or drug abuse patient.[place]In the event this information is protected by the Federal Confidentiality of Alcohol and Drug Abuse Patient Records regulations: The Federal rules restrict any use of the information to criminally investigate or prosecute any alcohol or drug abuse patient.[place]In the event this information is protected by the Federal Confidentiality of Alcohol and Drug Abuse Patient Records regulations: The Federal rules restrict any use of the information to criminally investigate or prosecute any alcohol or drug abuse patient.[place]In the event this information is protected by the Federal Confidentiality of Alcohol and Drug Abuse Patient Records regulations: The Federal rules restrict any use of the information to criminally investigate or prosecute any alcohol or drug abuse patient.[place]In the event this information is protected by the Federal Confidentiality of Alcohol and Drug Abuse Patient Records regulations: The Federal rules restrict any use of the information to criminally investigate or prosecute any alcohol or drug abuse patient.[place]In the event this information is protected by the Federal Confidentiality of Alcohol and Drug Abuse Patient Records regulations: The Federal rules restrict any use of the information to criminally investigate or prosecute any alcohol or drug abuse patient.[place]In the event this information is protected by the Federal Confidentiality of Alcohol and Drug Abuse Patient Records regulations: The Federal rules restrict any use of the information to criminally investigate or prosecute any alcohol or drug abuse patient.[place]In the event this information is protected by the Federal Confidentiality of Alcohol and Drug Abuse Patient Records regulations: The Federal rules restrict any use of the information to criminally investigate or prosecute any alcohol or drug abuse patient.[place]In the event this information is protected by the Federal Confidentiality of Alcohol and Drug Abuse Patient Records regulations: The Federal rules restrict any use of the information to criminally investigate or prosecute any alcohol or drug abuse patient.[place]In the event this information is protected by the Federal Confidentiality of Alcohol and Drug Abuse Patient Records regulations: The Federal rules restrict any use of the information to criminally investigate or prosecute any alcohol or drug abuse patient.[place]In the event this information is protected by the Federal Confidentiality of Alcohol and Drug Abuse Patient Records regulations: The Federal rules restrict any use of the information to criminally investigate or prosecute any alcohol or drug abuse patient.[place]In the event this information is protected by the Federal Confidentiality of Alcohol and Drug Abuse Patient Records regulations: The Federal rules restrict any use of the information to criminally investigate or prosecute any alcohol or drug abuse patient.[place]In the event this information is protected by the Federal Confidentiality of Alcohol and Drug Abuse Patient Records regulations: The Federal rules restrict any use of the information to criminally investigate or prosecute any alcohol or drug abuse patient.[place]In the event this information is protected by the Federal Confidentiality of Alcohol and Drug Abuse Patient Records regulations: The Federal rules restrict any use of the information to criminally investigate or prosecute any alcohol or drug abuse patient.[place]In the event this information is protected by the Federal Confidentiality of Alcohol and Drug Abuse Patient Records regulations: The Federal rules restrict any use of the information to criminally investigate or prosecute any alcohol or drug abuse patient.[place]In the event this information is protected by the Federal Confidentiality of Alcohol and Drug Abuse Patient Records regulations: The Federal rules restrict any use of the information to criminally investigate or prosecute any alcohol or drug abuse patient.[place]In the event this information is protected by the Federal Confidentiality of Alcohol and Drug Abuse Patient Records regulations: The Federal rules restrict any use of the information to criminally investigate or prosecute any alcohol or drug abuse patient.[place]In the event this information is protected by the Federal Confidentiality of Alcohol and Drug Abuse Patient Records regulations: The Federal rules restrict any use of the information to criminally investigate or prosecute any alcohol or drug abuse patient.[place]In the event this information is protected by the Federal Confidentiality of Alcohol and Drug Abuse Patient Records regulations: The Federal rules restrict any use of the information to criminally investigate or prosecute any alcohol or drug abuse patient.[place]In the event this information is protected by the Federal Confidentiality of Alcohol and Drug Abuse Patient Records regulations: The Federal rules restrict any use of the information to criminally investigate or prosecute any alcohol or drug abuse patient.[place]In the event this information is protected by the Federal Confidentiality of Alcohol and Drug Abuse Patient Records regulations: The Federal rules restrict any use of the information to criminally investigate or prosecute any alcohol or drug abuse patient.[place]In the event this information is protected by the Federal Confidentiality of Alcohol and Drug Abuse Patient Records regulations: The Federal rules restrict any use of the information to criminally investigate or prosecute any alcohol or drug abuse patient.[place]In the event this information is protected by the Federal Confidentiality of Alcohol and Drug Abuse Patient Records regulations: The Federal rules restrict any use of the information to criminally investigate or prosecute any alcohol or drug abuse patient.[place]In the event this information is protected by the Federal Confidentiality of Alcohol and Drug Abuse Patient Records regulations: The Federal rules restrict any use of the information to criminally investigate or prosecute any alcohol or drug abuse patient.[place]In the event this information is protected by the Federal Confidentiality of Alcohol and Drug Abuse Patient Records regulations: The Federal rules restrict any use of the information to criminally investigate or prosecute any alcohol or drug abuse patient.[place]In the event this information is protected by the Federal Confidentiality of Alcohol and Drug Abuse Patient Records regulations: The Federal rules restrict any use of the information to criminally investigate or prosecute any alcohol or drug abuse patient.[place]In the event this information is protected by the Federal Confidentiality of Alcohol and Drug Abuse Patient Records regulations: The Federal rules restrict any use of the information to criminally investigate or prosecute any alcohol or drug abuse patient.[place]In the event this information is protected by the Federal Confidentiality of Alcohol and Drug Abuse Patient Records regulations: The Federal rules restrict any use of the information to criminally investigate or prosecute any alcohol or drug abuse patient.[place]In the event this information is protected by the Federal Confidentiality of Alcohol and Drug Abuse Patient Records regulations: The Federal rules restrict any use of the information to criminally investigate or prosecute any alcohol or drug abuse patient.[place]In the event this information is protected by the Federal Confidentiality of Alcohol and Drug Abuse Patient Records regulations: The Federal rules restrict any use of the information to criminally investigate or prosecute any alcohol or drug abuse patient.[place]In the event this information is protected by the Federal Confidentiality of Alcohol and Drug Abuse Patient Records regulations: The Federal rules restrict any use of the information to criminally investigate or prosecute any alcohol or drug abuse patient.[place]In the event this information is protected by the Federal Confidentiality of Alcohol and Drug Abuse Patient Records regulations: The Federal rules restrict any use of the information to criminally investigate or prosecute any alcohol or drug abuse patient.[place]In the event this information is protected by the Federal Confidentiality of Alcohol and Drug Abuse Patient Records regulations: The Federal rules restrict any use of the information to criminally investigate or prosecute any alcohol or drug abuse patient.[place]In the event this information is protected by the Federal Confidentiality of Alcohol and Drug Abuse Patient Records regulations: The Federal rules restrict any use of the information to criminally investigate or prosecute any alcohol or drug abuse patient.[place]In the event this information is protected by the Federal Confidentiality of Alcohol and Drug Abuse Patient Records regulations: The Federal rules restrict any use of the information to criminally investigate or prosecute any alcohol or drug abuse patient.[place]In the event this information is protected by the Federal Confidentiality of Alcohol and Drug Abuse Patient Records regulations: The Federal rules restrict any use of the information to criminally investigate or prosecute any alcohol or drug abuse patient.[place]In the event this information is protected by the Federal Confidentiality of Alcohol and Drug Abuse Patient Records regulations: The Federal rules restrict any use of the information to criminally investigate or prosecute any alcohol or drug abuse patient.[place]In the event this information is protected by the Federal Confidentiality of Alcohol and Drug Abuse Patient Records regulations: The Federal rules restrict any use of the information to criminally investigate or prosecute any alcohol or drug abuse patient.[place]In the event this information is protected by the Federal Confidentiality of Alcohol and Drug Abuse Patient Records regulations: The Federal rules restrict any use of the information to criminally investigate or prosecute any alcohol or drug abuse patient.[place]In the event this information is protected by the Federal Confidentiality of Alcohol and Drug Abuse Patient Records regulations: The Federal rules restrict any use of the information to criminally investigate or prosecute any alcohol or drug abuse patient.[place]In the event this information is protected by the Federal Confidentiality of Alcohol and Drug Abuse Patient Records regulations: The Federal rules restrict any use of the information to criminally investigate or prosecute any alcohol or drug abuse patient.[place]ervilleIn the event this information is protected by the Federal Confidentiality of Alcohol and Drug Abuse Patient Records regulations: The Federal rules restrict any use of the information to criminally investigate or prosecute any alcohol or drug abuse patient.CentervilleIn the event this information is protected by the Federal Confidentiality of Alcohol and Drug Abuse Patient Records regulations: The Federal rules restrict any use of the information to criminally investigate or prosecute any alcohol or drug abuse patient.CentervilleIn the event this information is protected by the Federal Confidentiality of Alcohol and Drug Abuse Patient Records regulations: The Federal rules restrict any use of the information to criminally investigate or prosecute any alcohol or drug abuse patient.CentervilleIn the event this information is protected by the Federal Confidentiality of Alcohol and Drug Abuse Patient Records regulations: The Federal rules restrict any use of the information to criminally investigate or prosecute any alcohol or drug abuse patient.CentervilleIn the event this information is protected by the Federal Confidentiality of Alcohol and Drug Abuse Patient Records regulations: The Federal rules restrict any use of the information to criminally investigate or prosecute any alcohol or drug abuse patient.CentervilleIn the event this information is protected by the Federal Confidentiality of Alcohol and Drug Abuse Patient Records regulations: The Federal rules restrict any use of the information to criminally investigate or prosecute any alcohol or drug abuse patient.CentervilleIn the event this information is protected by the Federal Confidentiality of Alcohol and Drug Abuse Patient Records regulations: The Federal rules restrict any use of the information to criminally investigate or prosecute any alcohol or drug abuse patient.CentervilleIn the event this information is protected by the Federal Confidentiality of Alcohol and Drug Abuse Patient Records regulations: The Federal rules restrict any use of the information to criminally investigate or prosecute any alcohol or drug abuse patient.CentervilleIn the event this information is protected by the Federal Confidentiality of Alcohol and Drug Abuse Patient Records regulations: The Federal rules restrict any use of the information to criminally investigate or prosecute any alcohol or drug abuse patient.CentervilleIn the event this information is protected by the Federal Confidentiality of Alcohol and Drug Abuse Patient Records regulations: The Federal rules restrict any use of the information to criminally investigate or prosecute any alcohol or drug abuse patient.CentervilleIn the event this information is protected by the Federal Confidentiality of Alcohol and Drug Abuse Patient Records regulations: The Federal rules restrict any use of the information to criminally investigate or prosecute any alcohol or drug abuse patient.CentervilleIn the event this information is protected by the Federal Confidentiality of Alcohol and Drug Abuse Patient Records regulations: The Federal rules restrict any use of the information to criminally investigate or prosecute any alcohol or drug abuse patient.CentervilleIn the event this information is protected by the Federal Confidentiality of Alcohol and Drug Abuse Patient Records regulations: The Federal rules restrict any use of the information to criminally investigate or prosecute any alcohol or drug abuse patient.CentervilleIn the event this information is protected by the Federal Confidentiality of Alcohol and Drug Abuse Patient Records regulations: The Federal rules restrict any use of the information to criminally investigate or prosecute any alcohol or drug abuse patient.CentervilleIn the event this information is protected by the Federal Confidentiality of Alcohol and Drug Abuse Patient Records regulations: The Federal rules restrict any use of the information to criminally investigate or prosecute any alcohol or drug abuse patient.CentervilleIn the event this information is protected by the Federal Confidentiality of Alcohol and Drug Abuse Patient Records regulations: The Federal rules restrict any use of the information to criminally investigate or prosecute any alcohol or drug abuse patient.CentervilleIn the event this information is protected by the Federal Confidentiality of Alcohol and Drug Abuse Patient Records regulations: The Federal rules restrict any use of the information to criminally investigate or prosecute any alcohol or drug abuse patient.CentervilleIn the event this information is protected by the Federal Confidentiality of Alcohol and Drug Abuse Patient Records regulations: The Federal rules restrict any use of the information to criminally investigate or prosecute any alcohol or drug abuse patient.CentervilleIn the event this information is protected by the Federal Confidentiality of Alcohol and Drug Abuse Patient Records regulations: The Federal rules restrict any use of the information to criminally investigate or prosecute any alcohol or drug abuse patient.CentervilleIn the event this information is protected by the Federal Confidentiality of Alcohol and Drug Abuse Patient Records regulations: The Federal rules restrict any use of the information to criminally investigate or prosecute any alcohol or drug abuse patient.CentervilleIn the event this information is protected by the Federal Confidentiality of Alcohol and Drug Abuse Patient Records regulations: The Federal rules restrict any use of the information to criminally investigate or prosecute any alcohol or drug abuse patient.CentervilleIn the event this information is protected by the Federal Confidentiality of Alcohol and Drug Abuse Patient Records regulations: The Federal rules restrict any use of the information to criminally investigate or prosecute any alcohol or drug abuse patient.CentervilleIn the event this information is protected by the Federal Confidentiality of Alcohol and Drug Abuse Patient Records regulations: The Federal rules restrict any use of the information to criminally investigate or prosecute any alcohol or drug abuse patient.CentervilleIn the event this information is protected by the Federal Confidentiality of Alcohol and Drug Abuse Patient Records regulations: The Federal rules restrict any use of the information to criminally investigate or prosecute any alcohol or drug abuse patient.CentervilleIn the event this information is protected by the Federal Confidentiality of Alcohol and Drug Abuse Patient Records regulations: The Federal rules restrict any use of the information to criminally investigate or prosecute any alcohol or drug abuse patient.CentervilleIn the event this information is protected by the Federal Confidentiality of Alcohol and Drug Abuse Patient Records regulations: The Federal rules restrict any use of the information to criminally investigate or prosecute any alcohol or drug abuse patient.CentervilleIn the event this information is protected by the Federal Confidentiality of Alcohol and Drug Abuse Patient Records regulations: The Federal rules restrict any use of the information to criminally investigate or prosecute any alcohol or drug abuse patient.CentervilleIn the event this information is protected by the Federal Confidentiality of Alcohol and Drug Abuse Patient Records regulations: The Federal rules restrict any use of the information to criminally investigate or prosecute any alcohol or drug abuse patient.CentervilleIn the event this information is protected by the Federal Confidentiality of Alcohol and Drug Abuse Patient Records regulations: The Federal rules restrict any use of the information to criminally investigate or prosecute any alcohol or drug abuse patient.CentervilleIn the event this information is protected by the Federal Confidentiality of Alcohol and Drug Abuse Patient Records regulations: The Federal rules restrict any use of the information to criminally investigate or prosecute any alcohol or drug abuse patient.CentervilleIn the event this information is protected by the Federal Confidentiality of Alcohol and Drug Abuse Patient Records regulations: The Federal rules restrict any use of the information to criminally investigate or prosecute any alcohol or drug abuse patient.CentervilleIn the event this information is protected by the Federal Confidentiality of Alcohol and Drug Abuse Patient Records regulations: The Federal rules restrict any use of the information to criminally investigate or prosecute any alcohol or drug abuse patient.CentervilleIn the event this information is protected by the Federal Confidentiality of Alcohol and Drug Abuse Patient Records regulations: The Federal rules restrict any use of the information to criminally investigate or prosecute any alcohol or drug abuse patient.CentervilleIn the event this information is protected by the Federal Confidentiality of Alcohol and Drug Abuse Patient Records regulations: The Federal rules restrict any use of the information to criminally investigate or prosecute any alcohol or drug abuse patient.CentervilleIn the event this information is protected by the Federal Confidentiality of Alcohol and Drug Abuse Patient Records regulations: The Federal rules restrict any use of the information to criminally investigate or prosecute any alcohol or drug abuse patient.CentervilleIn the event this information is protected by the Federal Confidentiality of Alcohol and Drug Abuse Patient Records regulations: The Federal rules restrict any use of the information to criminally investigate or prosecute any alcohol or drug abuse patient.CentervilleIn the event this information is protected by the Federal Confidentiality of Alcohol and Drug Abuse Patient Records regulations: The Federal rules restrict any use of the information to criminally investigate or prosecute any alcohol or drug abuse patient.CentervilleIn the event this information is protected by the Federal Confidentiality of Alcohol and Drug Abuse Patient Records regulations: The Federal rules restrict any use of the information to criminally investigate or prosecute any alcohol or drug abuse patient.CentervilleIn the event this information is protected by the Federal Confidentiality of Alcohol and Drug Abuse Patient Records regulations: The Federal rules restrict any use of the information to criminally investigate or prosecute any alcohol or drug abuse patient.CentervilleIn the event this information is protected by the Federal Confidentiality of Alcohol and Drug Abuse Patient Records regulations: The Federal rules restrict any use of the information to criminally investigate or prosecute any alcohol or drug abuse patient.CentervilleIn the event this information is protected by the Federal Confidentiality of Alcohol and Drug Abuse Patient Records regulations: The Federal rules restrict any use of the information to criminally investigate or prosecute any alcohol or drug abuse patient.CentervilleIn the event this information is protected by the Federal Confidentiality of Alcohol and Drug Abuse Patient Records regulations: The Federal rules restrict any use of the information to criminally investigate or prosecute any alcohol or drug abuse patient.CentervilleIn the event this information is protected by the Federal Confidentiality of Alcohol and Drug Abuse Patient Records regulations: The Federal rules restrict any use of the information to criminally investigate or prosecute any alcohol or drug abuse patient.CentervilleIn the event this information is protected by the Federal Confidentiality of Alcohol and Drug Abuse Patient Records regulations: The Federal rules restrict any use of the information to criminally investigate or prosecute any alcohol or drug abuse patient.[place] Reason for Visit (unrecogniz ed section and content) Reason Comments Physical Therapy Specialty Diagnoses / Procedures Referred By Rajinder mauricio Referred To Contact [facility] Diagnoses Spinal stenosis of lumbar region, unspecified whether neurogenic claudication present Right leg pain Procedures CONSULT TO PHYSICAL THERAPY PHYSICAL THERAPY EVALUATION HIGH COMPLEX 45 MINS Nevin Marquez MD [address] [place] [address] [facility] [place] [address] [place] [address] Referral ID Status Reason Start Date Expiration Date Visits Requested Visits Authorized [id number] Authorized PCP Requested Referral Auto-Generate d Referral 01/22/2024 01/21/2025 99 99 Reason Onset Date Comments Refill Request 12/09/2021 Reason Comments Appointment Reason Comments Results Reason Comments Established Patient Elevated PSA Reason Comments Established Patient Reason Onset Date Comments Refill Request 01/07/2022 Reason Comments Medication clarification Reason Comments Imm/Inj Reason Comments Follow Up Depression Anxiety Reason Comments Patient Update Reason Comments Discussion Reason Comments Medication Question Reason Comments Follow Up Reason Comments Urinary Frequency burning with urinati on x 3-4 days Reason Onset Date Comments Refill Request 03/24/2022 Reason Onset Date Comments Refill Request 03/30/2022 Reason Onset Date Comments Refill Request 06/07/2022 Reason Comments diagnosis issue Reason Comments Patient Update Patient Request Reason Comments Follow Up Benign Prostatic Hypertrophy Reason Comments Medication question Reason Comments Medication Problem Reason Comments Appointment Patient Update Reason Comments Depression Reason Comments Refill Request Reason Comments F/U 6 months Reason Comments Results [facility] sleep study Reason Onset Date Comments Refill Request 10/24/2022 Reason Comments F/U 3 Month Reason Comments Pre-Op Exam Reason Comments Established 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 Date Comments Refill Request 03/10/2023 Reason Onset Date Comments Refill Request 04/06/2023 Reason Comments ER F/U Reason Comments Hearing Aid Check Reason Comments Patient Update Reason Comments Benign Prostatic Hypertrophy Reason Onset Date Comments F/U 6 months Immunizations 08/22/2023 Flu vaccination Reason Comments Benign Prostatic Hypertrophy BPH with MOON TS Reason Onset Date Comments Refill Request 01/12/2024 Reason Comments Follow Up Reason Comments F/U 6 months Reason Comments PT Eval Reason Onset Date Comments Refill Request 04/30/2024 Reason Comments New Reason Comments F/U 6 Month Reason Comments Established Patient Follow-Up 6 mo follo w up 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 Elder Reason Comments Established Patient Reason Comments new order needed for CPAP supplies Reason Comments severe cramping in flynn legs , states this happened a few d Stopped the simvastain and using electrolytes and still having cramping. Reason Onset Date Comments Refill Request 01/06/2025 Reason Onset Date Comments Refill Request 04/04/2025 Reason Onset Date Comments Population Health Navigation Outreach 05/26/2025 May/Workbench/ACO Care Teams (unrecognized sec tion and content) Agricultural [employer] Manager Relationship Specialty Start Date End Date Nevin Marquez MD [address] [place] [address] PCP - General Internal Medicine 08/20/11 Emiliana Estevez MD [address] [place] [address] Cardiology 09/01/21 Linn Thomas, DO [address] [facility] [place] [address] Peripheral Vascular 09/01/21 Agricultural [employer] Manager Relationship Specialty Start Date End Date Nevin Marquez MD [address] [facility] [address] PCP - General Internal Medicine 08/20/11 Emiliana Estevez MD [address] [facility] [place] [address] Cardiology 09/01/21 Linn Thomas, DO [address] [facility] [place] [address] Peripheral Vascular 09/01/21 Agricultural Labor [employer] Manager Relationship Specialty Start Date End Date Nevin Marquez MD [address] [place] [address] PCP - General Internal Medicine 08/20/11 Emiliana Estevez MD [address] [facility] [place] [address] Cardiology 09/01/21 Linn Thomas, DO [address] [facility] [place] [address] Peripheral Vascular 09/01/21 Agricultural Labor [employer] Manager Relationship Specialty Start Date End Date Nevin Marquez MD [address] [place] [address] PCP - General Internal Medicine 08/20/11 Emiliana Estevez MD [address] [facility] [place] [address] Cardiology 09/01/21 Linn Thomas, DO [address] [facility] [place] [address] Peripheral Vascular 09/01/21 Agricultural Labor [employer] Manager Relationship Specialty Start Date End Date Nevin Marquez MD [address] [place] [address] PCP - General Internal Medicine 08/20/11 Emiliana Estevez MD [address] [place] [address] Cardiology 09/01/21 Linn Thomas, DO [address] [facility] [place] [address] Peripheral Vascular 09/01/21 Agricultural Labor [employer] Manager Relationship Specialty Start Date End Date Nevin Marquez MD [address] [place] [address] PCP - General Internal Medicine 08/20/11 Emiliana Estevez MD [address] [place] [address] Cardiology 09/01/21 Linn Thomas, DO [address] [facility] [place] [address] Peripheral Vascular 09/01/21 Agricultural Labor [employer] Manager Relationship Specialty Start Date End Date Nevin Marquez MD [address] [place] [address] PCP - General Internal Medicine 08/20/11 Emiliana Estevez MD [address] [place] [address] Cardiology 09/01/21 Linn Thomas, DO [address] [facility] [place] [address] Peripheral Vascular 09/01/21 Agricultural Labor [employer] Manager Relationship Specialty Start Date End Date Nevin Marquez MD [address] [place] [address] PCP - General Internal Medicine 08/20/11 Emiliana Estevez MD [address] [place] [address] Cardiology 09/01/21 Linn Thomas, DO [address] [facility] [address] Peripheral Vascular 09/01/21 Agricultural Labor [employer] Manager Relationship Specialty Start Date End Date Nevin Marquez MD [address] [place] [address] PCP - General Internal Medicine 08/20/11 Emiliana Estevez MD [address] [facility] [place] [address] Cardiology 09/01/21 Linn Thomas, DO [address] [facility] [place] [address] Peripheral Vascular 09/01/21 Agricultural Labor [employer] Manager Relationship Specialty Start Date End Date Nevin Marquez MD [address] [place] [address] PCP - General Internal Medicine 08/20/11 Emiliana Estevez MD [address] [facility] [place] [address] (Fax) Cardiology 09/01/21 Linn Thomas, DO [address] [facility] [place] [address] Peripheral Vascular 09/01/21 Agricultural Labor [employer] Manager Relationship Specialty Start Date End Date Nevin Marquez MD [address] [place] [address] PCP - General Internal Medicine 08/20/11 Emiliana Estevez MD [address] [facility] [place] [address] (Fax) Cardiology 09/01/21 Linn Thomas, DO [address] [facility] [place] [address] Peripheral Vascular 09/01/21 Agricultural Labor [employer] Manager Relationship Specialty Start Date End Date Nevin Marquez MD [address] [place] [address] PCP - General Internal Medicine 08/20/11 Emiliana Estevez MD [address] [place] [address] Cardiology 09/01/21 Linn Thomas, DO [address] [facility] [place] [address] Peripheral Vascular 09/01/21 Agricultural Labor [employer] Manager Relationship Specialty Start Date End Date Nevin Marquez MD [address] [place] [address] PCP - General Internal Medicine 08/20/11 Emiliana Estevez MD [address] [place] [address] Cardiology 09/01/21 Linn Thomas, DO [address] [facility] [place] [address] Peripheral Vascular 09/01/21 Agricultural Labor [employer] Manager Relationship Specialty Start Date End Date Nevin Marquez MD [address] [place] [address] PCP - General Internal Medicine 08/20/11 Emiliana Estevez MD [address] [place] [address] Cardiology 09/01/21 Linn Thomas, DO [address] [facility] [place] [address] Peripheral Vascular 09/01/21 Agricultural Labor [employer] Manager Relationship Specialty Start Date End Date Nevin Marquez MD [address] [place] [address] PCP - General Internal Medicine 08/20/11 Emiliana Estevez MD [address] [place] [address] Cardiology 09/01/21 Linn Thomas, DO [address] [facility] [place] [address] Peripheral Vascular 09/01/21 Agricultural Labor [employer] Manager Relationship Specialty Start Date End Date Nevin Marquez MD [address] [place] [address] PCP - General Internal Medicine 08/20/11 Emiliana Estevez MD [address] [place] [address] Cardiology 09/01/21 Linn Thomas, DO [address] [facility] [place] [address] Peripheral Vascular 09/01/21 Agricultural Labor [employer] Manager Relationship Specialty Start Date End Date Nevin Marquez MD [address] [place] [address] PCP - General Internal Medicine 08/20/11 Emiliana Estevez MD [address] [place] [address] Cardiology 09/01/21 Linn Thomas, DO [address] [facility] [place] [address] Peripheral Vascular 09/01/21 Team Status: Active Member Role Status Dates Dr. Nevin Marquez MD Family Provider Active Dr. Nevin Marquez MD Primary Care Provider Active Team Status: Inactive Member Role Status Dates Dr. Nevin Marquez MD Primary Care Provider Active Dr. Victor Manuel Knowles MD Attending Provider, Referring Joe espinoza Active [employer] Relationship Specialty Start Date End Date Nevin Marquez MD [address] [place] [address] PCP - General Internal Medicine 08/20/11 Emilinaa Estevez MD [address] [place] [address] (Fax) Cardiology 09/01/21 Linn Thomas, DO [address] [place] [address] Peripheral Vascular 09/01/21 Agricultural Labor [employer] Manager Relationship Specialty Start Date End Date Nevin Marquez MD [address] [place] [address] PCP - General Internal Medicine 08/20/11 Emiliana Estevez MD [address] [place] [address] (Fax) Cardiology 09/01/21 Linn Thomas, DO [address] [place], [place] [address] Peripheral Vascular 09/01/21 Team Status: Inactive Member Role Status Dates Dr. Nevin Marquez MD Primary Care Provider, Referr ing Provider Active Dr. Louis Mak DO Attending Provider Active Team Status: Active Member Role Status Dates Dr. Nevin Marquez MD Primary Care Provider Active Dr. Cipriano Fabian DO Attending Provider, Referring Provider Active Team Status: Inactive Member Role Status Dates Dr. Nevin Marquez MD Primary Care Provider Active Dr. Cipriano Fabian DO Attending Provider, Referring Provider Active [employer] Manager Relationship Specialty Start Date End Date Nevin Marquez MD [address] [place], [place] [id number] PCP - General Internal Medicine 08/20/11 Emiliana Estevez MD [address] [place] [address] (Fax) Cardiology 09/01/21 Linn Thomas, DO [address] [place] [address] Peripheral Vascular 09/01/21 Agricultural Labor [employer] Manager Relationship Specialty Start Date End Date Nevin Marquez MD [address] [place], [place] [id number] PCP - General Internal Medicine 08/20/11 Emiliana Estevez MD [address] [place] [address] Cardiology 09/01/21 Linn Thomas DO [address] [facility] [place] [address] Peripheral Vascular 09/01/21 Agricultural Labor [employer] Manager Relationship Specialty Start Date End Date Nevin Marquez MD [address] [place] [address] PCP - General Internal Medicine 08/20/11 Emiliana Estevez MD [address] [place] [address] Cardiology 09/01/21 Linn Thomas DO [address] [facility] [place] [address] Peripheral Vascular 09/01/21 Agricultural Labor [employer] Manager Relationship Specialty Start Date End Date Nevin Marquez MD [address] [place] [address] PCP - General Internal Medicine 08/20/11 Emiliana Estevez MD [address] [place] [address] Cardiology 09/01/21 Linn Thomas DO [address] [facility] [place] [address] Peripheral Vascular 09/01/21 Agricultural Labor Camp Manager Relationship Specialty Start Date End Date Nevin Marquez MD [address] [place] [address] PCP - General Internal Medicine 08/20/11 Emiliana Estevez MD [address] [place] [address] Cardiology 09/01/21 Linn Thomas DO [address] [place] [address] Peripheral Vascular 09/01/21 Team Status: Active Member Role Status Dates Dr. Nevin Marquez MD Primary Care Provider Active Dr. Mateo José MD Attending Provider Active Dr. Cipriano Fabian DO Referring Provider Active Team Status: Inactive Member Role Status Dates Dr. Nevin Marquez MD Primary Care Provider Active Dr. Behzad Huertas MD Emergency Provider Active Agricultural Labor [employer] Manager Relationship Specialty Start Date End Date Nevin Marquez MD [address] [place], [place] [address] PCP - General Internal Medicine 08/20/11 Emiliana Estevez MD [address] [place] [address] Cardiology 09/01/21 Linn Thomas DO [address] [place], [place] [address] Peripheral Vascular 09/01/21 Team Status: Inactive Member Role Status Dates Dr. Nevin Marquez MD Primary Care Provider Active Dr. Ludwig Sweeney MD Attending Provider, Referring Provider Active Team Status: Inactive Member Role Status Dates Dr. Nevin Marquez MD Primary Care Provider Active Dr. Behzad Huertas MD Attending Provider, Emergency Pr ovider Active Agricultural Labor [employer] Manager Relationship Specialty Start Date End Date Nevin Marquez MD [address] [place] [address] PCP - General Internal Medicine 08/20/11 Emiliana Esteevz MD [address] [facility] [place] [address] Cardiology 09/01/21 Linn Thomas DO [address] [place] [address] Peripheral Vascular 09/01/21 Agricultural Labor Camp Manager Relationship Specialty Start Date End Date Nevin Marquez MD [address] [place] [address] PCP - General Internal Medicine 08/20/11 Emiliana Estevez MD [address] [place] [address] Cardiology 09/01/21 Linn Thomas DO [address] [facility] [place] [address] Peripheral Vascular 09/01/21 Agricultural Labor [employer] Manager Relationship Specialty Start Date End Date Nevin Marquez MD [address] [place] [address] PCP - General Internal Medicine 08/20/11 Emiliana Estevez MD [address] [place] [address] Cardiology 09/01/21 Linn Thomas DO [address] [facility] [place] [address] Peripheral Vascular 09/01/21 Agricultural Labor Camp Manager Relationship Specialty Start Date End Date Nevin Marquez MD [address] [place] [address] PCP - General Internal Medicine 08/20/11 Emiliana Estevez MD [address] [place] [address] Cardiology 09/01/21 Linn Thomas DO [address] [facility] [place] [address] Peripheral Vascular 09/01/21 Agricultural Labor [employer] Manager Relationship Specialty Start Date End Date Nevin Marquez MD [address] [place] [address] PCP - General Internal Medicine 08/20/11 Emiliana Estevez MD [address], [address] [place] [address] Cardiology 09/01/21 Linn Thomas DO [address] [place] [address] Peripheral Vascular 09/01/21 Team Status: Inactive Member Role Status Dates Dr. Nevin Marquez MD Primary Care Provider Active Dr. Louis Mak DO Attending Provider, Referring Provider Active Agricultural Labor [employer] Manager Relationship Specialty Start Date End Date Nevin Marquez MD [address] [place] [address] PCP - General Internal Medicine 08/20/11 Emiliana Estevez MD [address], [address] [place] [address] Cardiology 09/01/21 Linn Thomas DO [address] [place] [address] Peripheral Vascular 09/01/21 Agricultural Labor Camp Manager Relationship Specialty Start Date End Date Nevin Marquez MD [address] [place] [address] PCP - General Internal Medicine 08/20/11 Emiliana Estevez MD [address], [address] [place] [address] Cardiology 09/01/21 Linn Thomas DO [address] [place] [address] Peripheral Vascular 09/01/21 Team Status: Inactive Member Role Status Dates Dr. Nevin Marquez MD Primary Care Provider Active MAURILIO MACHUCA Attending Provider, Referring Provid er Active Agricultural Labor [employer] Manager Relationship Specialty Start Date End Date Nevin Marquez MD [address] [place] [address] PCP - General Internal Medicine 08/20/11 Emiliana Estevez MD [address], [address] [place] [address] Cardiology 09/01/21 Linn Thomas DO [address] [place], [place] [address] Peripheral Vascular 09/01/21 Agricultural Labor Camp Manager Relationship Specialty Start Date End Date Nevin Marquez MD [address] [place] [address] PCP - General Internal Medicine 08/20/11 Emiliana Estevez MD [address], [address] [place] [address] Cardiology 09/01/21 Linn Thomas DO [address] [place] [address] Peripheral Vascular 09/01/21 Agricultural Labor Camp Manager Relationship Specialty Start Date End Date Nevin Marquez MD [address] [place] [address] PCP - General Internal Medicine 08/20/11 Emiliana Estevez MD [address], [address] [facility] [place] [address] Cardiology 09/01/21 Linn Thomas DO [address] [facility] [facility] [facility] [place] [address] Peripheral Vascular 09/01/21 Agricultural Labor Camp Manager Relationship Specialty Start Date End Date Nevin Marquez MD [address] [place] [address] PCP - General Internal Medicine 08/20/11 Emiliana Estevez MD [address], [address] [place] [address] Cardiology 09/01/21 Linn Thomas DO [address] [place] [address] Peripheral Vascular 09/01/21 Agricultural Labor Camp Manager Relationship Specialty Start Date End Date Nevin Marquez MD [address] [place] [address] PCP - General Internal Medicine 08/20/11 Emiliana Estevez MD [address], [address] [facility] [place] [address] Cardiology 09/01/21 Linn Thomas DO [address] [place] [address] Peripheral Vascular 09/01/21 Agricultural Labor Camp Manager Relationship Specialty Start Date End Date Nevni Marquez MD [address] [place] [address] PCP - General Internal Medicine 08/20/11 Emiliana Estevez MD [address], [address] [facility] [place] [address] Cardiology 09/01/21 Linn Thomas DO [address] [place] [address] Peripheral Vascular 09/01/21 Agricultural Labor Camp Manager Relationship Specialty Start Date End Date Nevin Marquez MD [address] [place] [address] PCP - General Internal Medicine 08/20/11 Emiliana Estevez MD [address], [address] [place] [address] Cardiology 09/01/21 Linn Thomas DO [address] [address] Peripheral Vascular 09/01/21 Agricultural Labor Camp Manager Relationship Specialty Start Date End Date Nevin Marquez MD [address] [place] [address] PCP - General Internal Medicine 08/20/11 Emiliana Estevez MD [address], [address] [facility] [place] [address] Cardiology 09/01/21 Linn Thomas DO [address] [place] [address] Peripheral Vascular 09/01/21 Agricultural Labor Camp Manager Relationship Specialty Start Date End Date Nevin Marquez MD [address] [place] [address] PCP - General Internal Medicine 08/20/11 Emiliana Estevez MD [address], [address] [place] [address] Cardiology 09/01/21 Linn Thomas, [address] [place] [address] Peripheral Vascular 09/01/21 Agricultural Labor Camp Manager Relationship Specialty Start Date End Date Nevin Marquez MD [address] [place] [address] PCP - General Internal Medicine 08/20/11 Emiliana Estevez MD [address], [address] [facility] [place] [address] Cardiology 09/01/21 Linn Thomas, [address] [place] [address] Peripheral Vascular 09/01/21 Agricultural Labor Camp Manager Relationship Specialty Start Date End Date Nevin Marquez MD [address] [place] [address] PCP - General Internal Medicine 08/20/11 Emiliana Estevez MD [address], [address] [place] [address] Cardiology 09/01/21 Linn Thomas DO [address] [place] [address] Peripheral Vascular 09/01/21 Agricultural Labor Camp Manager Relationship Specialty Start Date End Date Nevin Marquez MD [address] [place] [address] PCP - General Internal Medicine 08/20/11 Emiliana Estevez MD [address], [address] [place] [address] Cardiology 09/01/21 Linn Thomas DO [address] [place] [address] Peripheral Vascular 09/01/21 Agricultural Labor Camp Manager Relationship Specialty Start Date End Date Nevin Marquez MD [address] [place] [address] PCP - General Internal Medicine 08/20/11 Emiliana Estevez MD [address], [address] [facility] [place] [address] Cardiology 09/01/21 Linn Thomas DO [address] [facility] [place] [address] Peripheral Vascular 09/01/21 Agricultural Labor Camp Manager Relationship Specialty Start Date End Date Nevin Marquez MD [address] [place] [address] PCP - General Internal Medicine 08/20/11 Emiliana Estevez MD [address], [address] [place] [address] Cardiology 09/01/21 Linn Thomas DO [address] [place] [address] Peripheral Vascular 09/01/21 Agricultural Labor [employer] Manager Relationship Specialty Start Date End Date Nevin Marquez MD [address] [place] [address] PCP - General Internal Medicine 08/20/11 Emiliana Estevez MD [address] [place] [address] (Fax) Cardiology 09/01/21 Linn Thomas DO [address] [place] [address] Peripheral Vascular 09/01/21 Sharad Brennan, LEAD SOFTWARE DEVELOPMENT ENGINEER.STAFF PSYCHOLOGIST [address] [place] [address] Sheet Pile Driver Operator Internal Medicine 08/26/24 Krystal Andino APRN.RESPITE WORKER [address] [place] [address] Sheet Pile Driver Operator Internal Medicine 08/26/24 Agricultural Labor [employer] Manager Relationship Specialty Start Date End Date Nevin Marquez MD [address] [place] [address] PCP - General Internal Medicine 08/20/11 Emiliana Estevez MD [address] [facility] [place] [address] (Fax) Cardiology 09/01/21 Linn Thomas DO [address] [place] [address] Peripheral Vascular 09/01/21 Sharad Brennan, LEAD SOFTWARE DEVELOPMENT ENGINEER.STAFF PSYCHOLOGIST [address] [place] [address] [facility] Internal Medicine 08/26/24 Krystal Andino LEAD SOFTWARE DEVELOPMENT ENGINEER.RESPITE WORKER [address] [place] [address] [facility] Internal Medicine 08/26/24 Agricultural Labor Camp Manager Relationship Specialty Start Date End Date Nevin Marquez MD [address] [place] [address] PCP - General Internal Medicine 08/20/11 Emiliana Estevez MD [address], [address] [place] [address] Cardiology 09/01/21 Linn Thomas DO [address] [place] [address] Peripheral Vascular 09/01/21 Sharad Brennan, LEAD SOFTWARE DEVELOPMENT ENGINEER.STAFF PSYCHOLOGIST [address] [place] [address] [facility] Internal Medicine 08/26/24 Krystal Andino LEAD SOFTWARE DEVELOPMENT ENGINEER.RESPITE WORKER [address] [place] [address] [facility] Internal Medicine 08/26/24 Agricultural Labor Camp Manager Relationship Specialty Start Date End Date Nevin Marquez MD [address] [place] [address] PCP - General Internal Medicine 08/20/11 Emiliana Estevez MD [address], [address] [place] [address] Cardiology 09/01/21 Linn Thomas DO [address] [place] [address] Peripheral Vascular 09/01/21 Sharad Brennan APRN.STAFF PSYCHOLOGIST [address] [place], [place] [id number] [facility] Internal Medicine 08/26/24 Krystal Andino APRN.RESPITE WORKER [address] [place], [place] [id number] [facility] Internal Medicine 08/26/24 Team Status: Inactive Member Role Status Dates Dr. Nevin Marquez MD Primary Care Provider Active Start: October 28, 2024 End: October 28, 2024 Dr. Cecil Barber MD Attending Provider Activ e Start: October 28, 2024 End: October 28, 2024 Dr. Cecil Barber MD Referring Provider Activ e Start: October 28, 2024 End: October 28, 2024 Team Status: Inactive Member Role Status Dates Dr. Nevin Marquez MD Primary Care Provider Active Start: November 05, 2024 End: November 05, 2024 Dr. Nevin Marquez MD Referring Provider Active Start: November 05, 2024 End: November 05, 2024 Dr. Louis Mak DO Attending Provider Active Start: November 05, 2024 End: November 05, 2024 Team Status: Inactive Member Role Status Dates Dr. Nevin Marquez MD Primary Care Provider Active Start: November 12, 2024 End: November 12, 2024 Dr. Ludwig Sweeney MD Attending Provider Active Start: November 12, 2024 End: November 12, 2024 Dr. Ludwig Sweeney MD Referring Provider Active Start: November 12, 2024 End: November 12, 2024 Agricultural Labor Camp Manager Relationship Specialty Start Date End Date Nevin Marquez MD [address] [place] [address] PCP - General Internal Medicine 08/20/11 Emiliana Estevez MD [address], [address] [place] [address] Cardiology 09/01/21 Linn Thomas DO [address] [address] Peripheral Vascular 09/01/21 Sharad Brennan LEAD SOFTWARE DEVELOPMENT ENGINEER.STAFF PSYCHOLOGIST [address] [place] [address] Sheet Pile Driver Operator Internal Medicine 08/26/24 Krystal Andino APRN.RESPITE WORKER [address] [place] [address] Sheet Pile Driver Operator Internal Medicine 12/10/24 Agricultural Labor Camp Manager Relationship Specialty Start Date End Date Nevin Marquez MD [address] [place] [address] PCP - General Internal Medicine 08/20/11 Emiliana Estevez MD [address], [address] [place] [address] Cardiology 09/01/21 Linn Thomsa DO [address] [place] [address] Peripheral Vascular 09/01/21 Sharad Brennan APRN.STAFF PSYCHOLOGIST [address] [place] [address] Sheet Pile Driver Operator Internal Medicine 08/26/24 Krystal Andino APRN.RESPITE WORKER [address] [place] [address] Sheet Pile Driver Operator Internal Medicine 12/10/24 Agricultural Labor Camp Manager Relationship Specialty Start Date End Date Nevin Marquez MD [address] [place] [address] PCP - General Internal Medicine 08/20/11 Emiliana Estevez MD [address], [address] [place] [address] Cardiology 09/01/21 Linn Thomas DO [address] [place] [address] Peripheral Vascular 09/01/21 Sharad Brennan, LEAD SOFTWARE DEVELOPMENT ENGINEER.STAFF PSYCHOLOGIST [address] [place] [address] Sheet Pile Driver Operator Internal Medicine 08/26/24 Krystal Andino LEAD SOFTWARE DEVELOPMENT ENGINEER.RESPITE WORKER [address] [place] [address] Sheet Pile Driver Operator Internal Medicine 12/10/24 Agricultural Labor Camp Manager Relationship Specialty Start Date End Date Nevin Marquez MD [address] [place] [address] PCP - General Internal Medicine 08/20/11 Emiliana Estevez MD [address] [place] [address] Cardiology 09/01/21 Linn Thomas DO [address] [place] [address] Peripheral Vascular 09/01/21 Sharad Brennan, LEAD SOFTWARE DEVELOPMENT ENGINEER.STAFF PSYCHOLOGIST [address] [place] [address] Sheet Pile Driver Operator Internal Medicine 08/26/24 Krystal Andino, LEAD SOFTWARE DEVELOPMENT ENGINEER.RESPITE WORKER [address] [place] [address] Sheet Pile Driver Operator Internal Medicine 12/10/24 Agricultural Labor Camp Manager Relationship Specialty Start Date End Date Nevin Marquez MD [address] [place] [address] PCP - General Internal Medicine 08/20/11 Emiliana Estevez MD [address], [address] [facility] [place] [address] Cardiology 09/01/21 Linn Thomas DO [address] [place] [address] Peripheral Vascular 09/01/21 Krystal Andino, LEAD SOFTWARE DEVELOPMENT ENGINEER.RESPITE WORKER [address] [place] [address] Sheet Pile Driver Operator Internal Medicine 12/10/24 Sharad Brennan, LEAD SOFTWARE DEVELOPMENT ENGINEER.STAFF PSYCHOLOGIST [address] [place] [address] Sheet Pile Driver Operator Internal Medicine 02/05/25 Agricultural Labor Camp Manager Relationship Specialty Start Date End Date Nevin Marquez MD [address] [place] [address] PCP - General Internal Medicine 08/20/11 Emiliana Estevez MD [address], [address] [place] [address] Cardiology 09/01/21 Linn Thomas DO [address] [place], [place] [id number] Peripheral Vascular 09/01/21 Krystal Andino APRN.RESPITE WORKER [address] [place] [address] Sheet Pile Driver Operator Internal Medicine 12/10/24 Sharad Brennan, LEAD SOFTWARE DEVELOPMENT ENGINEER.STAFF PSYCHOLOGIST [address] [place] [address] [facility] Internal Medicine 02/05/25 Goals (unrecognized section and content) Goals may be documented in a n alternate sectionGoals may be documented in an alternate sectionGoals may be documented in an alternate sectionGoals may be documented in an alternate sectionGoals may be documented in an alternate sectionGoals may be documented in an alternate sectionGoals may be documented in an alternate sectionGoals may be documented in an alternate sectionGoals may be documented in an alternate sectionGoals may be documented in an alternate sectionGoals may be documented in an alternate sectionGoals may be documented in an alternate section FOR RECORDS PERTAINING TO PATIENTS WHO ARE OR HAVE BEEN ENROLLED IN A CHEMICAL DEPENDENCY/SUBSTANCEABUSE PROGRAM, SOME INFORMATION MAY BE OMITTED. This clinical summary was aggregated from multiple sources. Caution should be exercised in using it in the provision of clinical care. This summary normalizes information from multiple sources, and as a consequence, information in this document may materially change the coding, format and clinical context of patient data. In addition, data may be omitted in some cases. CLINICAL DECISIONS SHOULD BE BASED ON THE PRIMARY CLINICAL RECORDS. [employer] [facility]. provides no warranty or guarantee of the accuracy or completeness of information in this document.
== END | disposition home or self-care (01) ==
LOC: OPMRI 13:54
PROVIDERS: PCP Internal Medicine; Referring Provider Student in an Organized Health Care Education/Training Program; Visit Provider Student in an Organized Health Care Education/Training Program
DX: M79.651 Pain in right thigh (principal); R60.0 Localized edema
CPT/HCPCS: 73718

== ENCOUNTER 2025-08-25 14:00 | Outpatient (RCR) | payer MEDICARE, OTHER, SELFPAY ==
--- NOTE | 2025-07-02 11:39 | HP.PTEVAL_ITS ---
Patient's Visit Information Visit Information Visit Information: TOSHA FORTUNE is a 80 year old M referred to Physical Therapy by Dr. Luciano Sabillon, DO with a diagnosis of R quad strain /edema. Date of Evaluation: 07/02/25 Physical Therapist: Alex Todd, DPT, OCS, CSCS Visit Plan Frequency: 2x /Week Duration: 4-6 Weeks Plan: 2x/week for 3-6 weeks for. IE HEP: quad stretch 30 5x and SLR 2x10 both 2x/day with pics Treat with manual thrapy of DTR and IASTM to R quad, rollout to quad and ITB R, strtch same CR and with hip into extension. once ambulating without pain/antalgia can move to gym based LE streengthening, focus initially should be all manual. Subjective Subjective: 2 yrs ago stepping out of door adn fell and R leg went up in the air. Hurt in the femur at that time. Crawled through house to crutches and could gt around. Went to ER next day and no breaks but bruised hip to ankle r leg. Saw Quique a few days later(was seeing him for back), Hematoma and sent for MRI and it was messed up and sent to [facility]. had PT forever. never got better. Sent to [facility] recently, had another MRI and thinks he tore quad connection a little bit. Surgery not appropriate. Sent for therapy today. Previous therapy was sitting on ball and step ups, walking. Did not help much. 5 at rest, 8/10 with steps or walking too much. Had dry needle whcih did not help. Also has bad back and sees Quique, has spinal cord stimulator. Sleep: takes pills and sleeps well. Employd: retired. 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 Activities are interrupted volume as it hurts and goes slow. Basic ADLsall I. Regular exercise. used to workout at Pain R quad: Pain Intensity (Out of 10): 5 Pain Intensity Range: 5 and 8 Comment: constant Objective Objective: R quad causing antalgia in gait minor. Trasnfers chair and bed I. lumbar AROM WFL today as is knee adn ankle and hip, R knee 0-128 and L knee 0- 134 Tightness present in B quad R>L and pain R quad, prone knee flexion to 120 on R and 130 on L. Palpable nodules in R quad latral> medial but tender , HS B tight at -30 90/90 test and R ITB mild tightness. SLR painful R not L. streength 4R quad and 4+ L, HS 4+ B, hip flexion adn abd 4-, ext 4- hip ext 3+ B. ankles 4 B. reflxes 2/3 patella and achills B. sensation WNl to gross light touch. Appears to be soft tissue chronic injury not fully remodelled in R quad. Balance/Special Test Scores Lower Extremity Functional Score: 43 Goals Goal 1:: R quad painfree at rest adn 1/10 at worst with ambulation 80% better. Goal Time Frame: 4-6 Weeks Goal 2:: I appropriate HEP to manage pain at home Goal Time Frame: 4-6 Weeks Goal 3:: walk without antalgia into adn out of clinic Goal Time Frame: 4-6 Weeks Goal 4:: resume walking two miles without quad pain Goal Time Frame: 4-6 Weeks Goal 5:: LEFS score 55 Goal Time Frame: 4-6 Weeks Rehabilitation Potential Physical Therapy Diagnosis: R leg pain and limited ROM bothering comfortable funciton. Rehabilitation Potential: Good Anticipated Interventions Patient/Client Instruction: Educate patient on: Condition and Plan of Care For the Purpose of:: To decrease pain, To increase ROM, To improve nutrient delivery to tissue and To improve gait and locomotor functions Therapeutic Exercise to Include: Strength training, Postural training, Flexibilty training, Passive ROM and Active ROM For the Purpose of:: To decrease pain, To increase ROM, To improve nutrient delivery to tissue, To improve muscle performance and motor function, To increase tolerance to activity/condition/position and To improve gait and locomotor functions Manual Therapy Techniques to Include: Petrissage, Mobilization, Passive ROM and Soft tissue mobilization For the Purpose of:: To decrease pain, To increase ROM, To improve nutrient delivery to tissue, To improve muscle performance and motor function, To increase tolerance to activity/condition/position and To improve gait and locomotor functions Thermo therapy (hot pack): Yes For the Purpose of:: To improve nutrient delivery to tissue Text: Thank you for the opportunity to evaluate your patient. For Medicare and Medicare HMO plans, please review the plan of care and approve it. It will need to be FAXED BACK to us at [phone] for Medicare purposes. For Medicare only, by signing this I certify the plan of care. Please let me know if there are questions or concerns regarding this plan of care. Physician Signature:_ Date:
--- NOTE | 2025-08-25 14:35 | HP.PTDCSUM ---
Discharge Summary D/C summary: It has been my pleasure to treat TOSHA FORTUNE referred by Dr. Luciano Sabillon DO, with the diagnosis of R quad strain /edema for a total of 13 visit(s). Discharge Date: 08/25/25 Please see the following information for a summary of their discharge status. Subjective Subjective: It still hurts. More pain lateral knee. Still stretching and doing HEP. Still climbing a lot of steps. No bettr than 6 weeks ago. 7/10 daily at rst and 8/10 with walking. Feels best after hot shower and worse in am. Pain R quad: Pain Intensity (Out of 10): 7 Overall Improvement % Improvement: 0 Objective Objective/Function: walking with R antalgia. Tender in R ITB and lateral knee into quad. Not improving subjctively despite tolerating wrokout. Will continue this on his own as member and contact doctor for next option. Goals Goal 1:: R quad painfree at rest adn 1/10 at worst with ambulation 80% better. Goal Progress: 50% Goal 2:: I appropriate HEP to manage pain at home Goal Progress: Goal Met Goal 3:: walk without antalgia into adn out of clinic Goal Progress: Goal Met Goal 4:: resume walking two miles without quad pain Goal Progress: Not Progressing Goal 5:: LEFS score 55 Goal Progress: Not Progressing Plan Plan: d/c , pt to contact doctor regarding lack of progreess. D/C Information Discharge Comments: I with workout but no improvemen t to pain d/c sentence: If there are questions or concerns regarding this patient's physical therapy, please feel free to call me at [phone]. Thank you for the referral of this patient. Sincerely, Alex Todd, DPT, OCS, CSCS Balance/Gait/Functional tests Balance/Special Test Scores Lower Extremity Functional Score: 43 Improvement % Improvement: 0
== END 2025-08-25 19:00 | disposition home or self-care (01) ==
LOC: PT 14:00
PROVIDERS: PCP Internal Medicine; Referring Provider Student in an Organized Health Care Education/Training Program; Visit Provider Student in an Organized Health Care Education/Training Program
DX: S76.111D Strain of right quadriceps muscle, fascia and tendon, subsequent encounter (principal); R60.0 Localized edema
CPT/HCPCS: 97110; 97140; 97161; 97164; 97530